=== PATIENT | male | born 1950 | race Caucasian/White ===

== ENCOUNTER 2017-09-06 06:18 | Day surgery (SDC) | payer OTHER ==
[2017-09-01 14:18] LABS: Absolute Lymphocytes (CBC) 1.5 K/uL (0.7-4.9); Absolute Monocytes 0.7 K/uL (0.1-1.3); Absolute Neutrophil 3.8 K/uL (1.8-8.0); Basophils % 1.1 % (0-1.3); Eosinophils % 4.5 % (0-4.4); Hematocrit 39.6 % (39.6-49.0); Lymphocytes % 23.1 % (15.3-44.8); MCH 27.5 pg (27.0-35.0); MCV 83.3 fL (80-100); MPV 9.3 fL (7.6-11.3); RBC Red Blood Cell Count 4.76 M/uL (4.33-5.43)
[2017-09-01 14:24] LABS: Potassium 4.1 mEq/L (3.6-5.0); Protime INR 2.47
--- NOTE | 2017-09-01 14:49 | RAD REPORT ---
EXAM DESCRIPTION: RADOP - Outpt Chest Pa/Lat (2 Views) - 09/01/2017 2:31 pm CLINICAL HISTORY: Preop chest, pending cardiac catheterization procedure, history of asbestosis COMPARISON: June [address] chest TECHNIQUE: PA and lateral views of the chest were obtained. FINDINGS: The lungs are clear of an acute infiltrate or mass. Interstitial markings are prominent bu t not clearly different. Patient has numerous punctate calcifications localized on the CT study to th e left ventricular myocardium. No acute failure finding. Sternotomy wires are in place. Heart size is normal and central vasculature is within normal limits. No pleural effusion or pneumothorax seen. No acute bony finding noted. No acute aortic finding. Diaphragmatic eventration is present. IMPRESSION: Chronic interstitial lung disease is present similar to prior imaging. No acute finding.
--- NOTE | 2017-09-01 16:27 | EKG ---
Test Date: 2017-09-01 Test Time: 13:41:13 Trim Die Maker: GLADIS MEASUREMENT RESULTS: Intervals: Rate: 62 TN: 196 QRSD: 168 QT: 490 QTc: 497 Rutledge: P: 34 TN: 196 QRS: -63 T: 60 INTERPRETIVE STATEMENTS: Marked sinus bradycardia with occasional premature ventricular complexes Left axis deviation Left ventricular hypertrophy with QRS widening Inferior infarct, age undetermined Abnormal ECG Compared to ECG 07/03/2017 11:13:57 Ventricular premature complex(es) now present Left ventricular hypertrophy now present Myocardial infarct finding now present Sinus rhythm no longer present Atrial premature complex(es) no longer present Left bundle-branch block no longer present Electronically Signed On 09-01-17 16:27:21 CDT by Geovanny Garrett
--- OUTSIDE RECORDS SUMMARY | 2017-09-06 06:21 | XMS REPORT ---
:1950 [facility] Address [facility] Piña [address] [place] [id number] Care Team Providers Name Role Phone VIVEK MCCOYDAMASOKIRK DWIGHT Unavailable Unavailable Problems This patient has no known problems. Allergies, Adverse Reactions, Alerts This patient has no known allergies or adverse reactions. Medications This patient has no known medications. Results Test Description Test Time Test Comments Text Results Atomic Results Result Comments PROTHROMBIN TIME/INR 2017-08-17 10:29:00 Test Item Value Reference Range Comments PROTIME (BEAKER) (test rimx=269) 15.7 seconds 11.7-14.7 INR (BEAKER) (test dsnw=233) 1.3 <=5.9 RECOMMENDED COUMADIN/WARFARIN INR THERAPY RANGESSTANDARD DOSE: 2.0 - 3.0 Includes: PROPHYLAXIS forvenous thrombosis, systemic embolization; TREATMENT for venous thrombosis and/or pulmonary embolus.HIGH RISK: Target INR is 2.5-3.5 for patients with mechanical heart valves.
--- OUTSIDE RECORDS SUMMARY | 2017-09-06 06:21 | XMS REPORT | Clinical Summary ---
:1950 Author Organization [facility] Address [address] [place] [phone] Phone Care Team Providers Name Role Phone Unavailable Primary Care Provider Unavailable Allergies No Known Allergies Current Medications Not on file Active Problems Not on file Encounters Date Type Specialty Care Team Description 08/17/2017 Hospital Encounter Cardiology Geovanny Garrett 08/17/2017 Outside Orders Central Scheduling Geovanny Garrett Aortic valve disease Carlos (Primary Dx) after 09/05/2016 Social History Tobacco Use Types Packs/Day Years Used Date Never Assessed Sex Assigned at Date Recorded Not on file Last Filed Vital Signs Vital Sign Reading Time Taken Blood Pressure 103/51 08/17/2017 11:40 AM CDT Pulse 58 08/17/2017 11:40 AM CDT Temperature - - Respiratory Rate 14 08/17/2017 11:40 AM CDT Oxygen Saturation 96% 08/17/2017 11:40 AM CDT Inhaled Oxygen Concentration - - Weight - - Height - - Body Mass Index - - Plan of Treatment Not on file Results Transesophageal echo (08/17/2017 11:55 AM) Component Value Ref Range Ejection Fraction Specimen Performing Laboratory [facility] Narrative Transesophageal Echocardiography Report (GERRI) Demographics Patient NameFUARIELLA BUCIO Date of Study WILLIS Male Visit [id number] Room NumberOP Number Date of 1Referring Gerry Gonzalez Physician Age 67 year(s)Keyla Light [facility] Interpreting Magdalene Boone Procedure Type of Study GERRI procedure:TRANSESOPHAGEAL ECHO (Routine) Indications:Suspected infective endocarditis with positive cultures or new murmur and Initial evaluation of valvular or structural heart disease. Clinical History HTN, HLD, AOV REPLACEMENT (1985- ), BAV, PDA, ENDOCARDITIS, FORMER SMOKER (QUIT 2 YEARS AGO), CVA (01/15/17) Height: 72 inches Weight: 88.45 kg (195 lbs) BSA: 2.11 m^2 BMI: 26.45 kg/m^2 HR: 56 bpm BP: 139/65 mmHg GERRI Performed By: the attending and the integrated program teacher Procedure Informed Consent GERRI procedure notes Moderate sedation by performing MD using 5 mg IV versed and 75 mcg IV fentanyl. . Type of Anesthesia: Moderate sedation Summary 1. AoV dimensionless obstructive index (DOI)) is 0.23 . Peak/mean aortic gradients vary with the irregular HR but mostly approach 64 and 35mmHg with some as high as 85mmHg c/w severe obstruction of the mechanical AVR 2. Mild mitral regurgitation. No vegetations seen. Average mean mitral gradient 5mmHg c/w mild [place] valve mitral stenosis. 3. There is marked and abnormal thickening and calcification of the posterolateral papillary muscle with extension to just below the PML. There are mobile echodensities attached. Signature Findings Technical Quality: Technically good exam. Left Mild concentric LV hypertrophy. VentricleAll of the LV segments contract normally . Global LV systolic function normal . Left AtriumLA size is moderately enlarged . LA appendage thrombus is not present . RightThe right ventricular chamber size and systolic function are Ventriclewithin normal limits. Right Atrium RA size is probably normal based on available views. Atrial IV saline contrast injection was negative for a PFO (patent Septum foramen ovale) at rest . Aortic Valve AoV dimensionless obstructive index (DOI)) is 0.23 . Peak/mean aortic gradients vary with the irregular HR but mostly approach 64 and 35mmHg with some as high as 85mmHg c/w severe obstruction of the mechanical AVR Prosthetic AoV regurgitaton is trivial and physiologic . Mechanical aortic replacement is well seated. by 3d imaging the hemidiscs have good mobility. There are small mobile echodensities attached to the LV surface of the prosthesis which could represent thromi and/or vegetation. There may be panus/thrombus underneath the prosthesis. There is no evidence of aortic root abscess. Mitral Valve Oppo-ns-hqdrowkv MV leaflet thickening. Moderate mitral annular calcification. Mild mitral regurgitation. Average mean mitral gradient 5mmHg. There are no vegetations attached to the mitral leaflets. There is marked and abnormal thickening and calcification of the posterolateral papillary muscle with extension to just below the PML. There are mobile echodensities attached. Posterior leaflet with reduced mobility secondary to calcification TricuspidNormal TV structure and function. ValveUnable to estimate peak systolic PA pressure; inadequate TR velocity signal. Pulmonic Normal PV structure and function. ValveNo residual PDA flow could be visualized. AortaAortic root size (SInus of Valsalva diameter) is normal . Proximal ascending aorta size is normal . PericardiumNo pericardial effusion is visualized. Procedure Note Interface, External Ris In - 08/18/2017 8:32 AM CDT Transesophageal Echocardiography Report (GERRI) Demographics Patient Name ARIELLA WYLIE Date of Study WILLIS Gender Male Visit Number [id number] Race Room Number OP Number Date of 1950 Referring Gerry Gonzalez Physician Age 67 year(s) Supervisor Tan [address] Interpreting Physician KIP Boone Procedure Type of Study GERRI procedure:TRANSESOPHAGEAL ECHO (Routine) Indications:Suspected infective endocarditis with positive cultures or new murmur and Initial evaluation of valvular or structural heart disease. Clinical History HTN, HLD, AOV REPLACEMENT (1985- ), BAV, PDA, ENDOCARDITIS, FORMER SMOKER (QUIT 2 YEARS AGO), CVA (01/15/17) Height: 72 inches Weight: 88.45 kg (195 lbs) BSA: 2.11 m^2 BMI: 26.45 kg/m^2 HR: 56 bpm BP: 139/65 mmHg GERRI Performed By: the attending and the integrated program teacher Procedure Informed Consent GERRI procedure notes Moderate sedation by performing MD using 5 mg IV versed and 75 mcg IV fentanyl. . Type of Anesthesia: Moderate sedation Summary 1. AoV dimensionless obstructive index (DOI)) is 0.23 . Peak/mean aortic gradients vary with the irregular HR but mostly approach 64 and 35mmHg with some as high as 85mmHg c/w severe obstruction of the mechanical AVR 2. Mild mitral regurgitation. No vegetations seen. Average mean mitral gradient 5mmHg c/w mild [place] valve mitral stenosis. 3. There is marked and abnormal thickening and calcification of the posterolateral papillary muscle with extension to just below the PML. There are mobile echodensities attached. Signature Findings Technical Quality: Technically good exam. Left Mild concentric LV hypertrophy. Ventricle All of the LV segments contract normally . Global LV systolic function normal . Left Atrium LA size is moderately enlarged . LA appendage thrombus is not present . Right The right ventricular chamber size and systolic function are Ventricle within normal limits. Right Atrium RA size is probably normal based on available views. Atrial IV saline contrast injection was negative for a PFO (patent Septum foramen ovale) at rest . Aortic Valve AoV dimensionless obstructive index (DOI)) is 0.23 . Peak/mean aortic gradients vary with the irregular HR but mostly approach 64 and 35mmHg with some as high as 85mmHg c/w severe obstruction of the mechanical AVR Prosthetic AoV regurgitaton is trivial and physiologic . Mechanical aortic replacement is well seated. by 3d imaging the hemidiscs have good mobility. There are small mobile echodensities attached to the LV surface of the prosthesis which could represent thromi and/or vegetation. There may be panus/thrombus underneath the prosthesis. There is no evidence of aortic root abscess. Mitral Valve Gjxg-kt-gbnquohp MV leaflet thickening. Moderate mitral annular calcification. Mild mitral regurgitation. Average mean mitral gradient 5mmHg. There are no vegetations attached to the mitral leaflets. There is marked and abnormal thickening and calcification of the posterolateral papillary muscle with extension to just below the PML. There are mobile echodensities attached. Posterior leaflet with reduced mobility secondary to calcification Tricuspid Normal TV structure and function. Valve Unable to estimate peak systolic PA pressure; inadequate TR velocity signal. Pulmonic Normal PV structure and function. Valve No residual PDA flow could be visualized. Aorta Aortic root size (SInus of Valsalva diameter) is normal . Proximal ascending aorta size is normal . Pericardium No pericardial effusion is visualized. Prothrombin time/INR (08/17/2017 10:00 AM) Component Value Ref Range Protime 15.7 (H) 11.7 - 14.7 seconds INR 1.3 <=5.9 Specimen Performing Laboratory Blood [facility] [address] [address] Narrative RECOMMENDED COUMADIN/WARFARIN INR THERAPY RANGES STANDARD DOSE: 2.0 - 3.0 Includes: PROPHYLAXIS for venous thrombosis, systemic embolization; TREATMENT for venous thrombosis and/or pulmonary embolus. HIGH RISK: Target INR is 2.5-3.5 for patients with mechanical heart valves. after 09/05/2016
[2017-09-06] MEDS ORDERED: NA CHLORIDE 0.9% 500 ML ONE (06:50)
[2017-09-06] MEDS ORDERED: HEPA 1000U/500MLS 0 UNIT/0 ML BAG IV ONE (07:26)
[2017-09-06] MEDS ORDERED: LIDOCAINE 1% 20 ML MDV ONE (07:26)
[2017-09-06] MEDS ORDERED: MIDAZOLAM HCL 2 MG/2 ML INJ ONE ×4 (07:40→09:14)
[2017-09-06] MEDS ORDERED: NA CHLORIDE 0.9% 0 ML ONE ×2 (07:41→09:06)
[2017-09-06] MEDS ORDERED: FENTANYL CITR 100 MCG/2 ML ONE ×2 (07:41→09:05)
[2017-09-06] MEDS ORDERED: ATROPINE SULF 1 MG/10 ML SYR IV ONE ×2 (07:41→09:05)
[2017-09-06 08:42] VITALS: TEMP 97
[2017-09-06] MEDS ORDERED: ONDANSETRON 4 MG/2 ML VIAL ONE (09:49)
[2017-09-06 09:50] VITALS: BP 131/59; O2SAT 96
--- NOTE | 2017-09-07 03:58 | OP ---
Surgeon: Geovanny Garrett MD Bobbin Sorter: Stefany Mckeon. Indications: Mr. Wylie is a 67-year-old white male. He is known to have severe aortic stenosis of a mechanical prosthesis that has been there for approximately 30 years ago. This was done by Dr. Rocha. In the last few months, he had endocarditis. Transesophageal echocardiography done at [facility] confirmed severe aortic stenosis of his mechanical valve. There is a plan for hussain m to have an aortic valve replacement by Dr. Corbin Sevilla. The heart catheterization was scheduled to r ule out coronary artery disease prior to surgery. Procedure In Detail: The patient was admitted as an outpatient, brought to the label rewinder. He was pre pped and draped in the routine sterile fashion, was given 2 mg of Versed for IV sedation. Right comm on femoral artery access was obtained with a 6-Guine[place] sheath. The 6-[place] catheters were used to do the diagnostic catheterization. He had minimal plaquing in the LAD, circumflex, and the RCA. There were no complications of the procedure. There were no focal stenosis. He was right dominant. Complications: None. Blood Loss: 5 cc. Final Diagnoses: Minimal coronary artery disease, aortic stenosis, and atrial fibrillation, which wa s noted on his rhythm strips. Total Conscious Sedation: 30 minutes. Postoperative Plan: Plan is to continue Lovenox as a bridge until he has his aortic valve surgery. No change in therapy, otherwise. He will go home today after his bedrest is over. Angio-Seal was us ed to close the case. I will arrange followup with Dr. Sevilla. The case was discussed with the family. TEOFILO/KEM Voice ID: [id number] Report ID: [id number]
== END 2017-09-06 10:14 | disposition home or self-care (01) ==
LOC: CCL 06:18
DX: T82.857A Stenosis of other cardiac prosthetic devices, implants and grafts, initial encounter (principal); I25.10 Atherosclerotic heart disease of native coronary artery without angina pectoris; I48.91 Unspecified atrial fibrillation; I10 Essential (primary) hypertension; E78.5 Hyperlipidemia, unspecified; F17.210 Nicotine dependence, cigarettes, uncomplicated; Z86.73 Personal history of transient ischemic attack (TIA), and cerebral infarction without residual deficits; Z88.3 Allergy status to other anti-infective agents
CPT/HCPCS: 36415; 71046; 80048; 85025; 85610; 85730; 93005; 93454; C1893; J2250 ×2; J3010; J0583; J2405

== ENCOUNTER 2020-07-17 19:20 | Observation (INO) | payer OTHER ==
[2020-07-17] MEDS ORDERED: NA CHLORIDE 0.9% 1,000 ML ONE (20:17)
[2020-07-17 20:25] LABS: Absolute Lymphocytes (CBC) 1.5 K/uL (0.7-4.9); Basophils % 1.2 % (0-1.3); Hematocrit 39.1 % (39.6-49.0); Lymphocytes % 22.3 % (15.3-44.8); MPV 9.3 fL (7.6-11.3); RBC Red Blood Cell Count 4.68 M/uL (4.33-5.43)
[2020-07-17 20:31] LABS: Protime INR 1.55
[2020-07-17 20:53] LABS: ALT/SGPT 25 U/L (12-78); AST/SGOT 24 U/L (15-37); Albumin 3.9 g/dL (3.4-5.0); Alkaline Phosphatase 99 U/L (45-117); BUN Blood Urea Nitrogen 34 mg/dL (7-18); Bicarbonate 33 mmol/L (21-32); Bilirubin Direct 0.2 mg/dL (0-0.2); Bilirubin Total 0.9 mg/dL (0.2-1.0); Glucose Level 190 mg/dL (74-106); Magnesium 2.1 mg/dL (1.8-2.4); NT PRO-BNP 354 pg/mL (<125); Protein, Total 7.5 g/dL (6.4-8.2); Sodium Level 141 mmol/L (136-145); Troponin (Emerg Dept Use Only) < 0.02 ng/mL (0.0-0.045)
[2020-07-17 20:55] LABS: Potassium 2.7 mmol/L (3.5-5.1)
[2020-07-17] MEDS ORDERED: KCL 20 MEQ/100 mL IVPB 40 MEQ/200 ML BAG IV ONE (21:33)
[2020-07-17] MEDS ORDERED: POTASSIUM 25 MEQ EFFERV TAB ONE (21:33)
[2020-07-17] MEDS ORDERED: NS KCL 20MEQ 1,000 ML IV ONE (21:34)
--- NOTE | 2020-07-17 21:51 | EDPHYS ---
Physician Documentation [facility] Name: Alexsander Wylie Age: 70 yrs Sex: Male : 1950 Arrival Date: 07/17/2020 Time: 19:21 Bed 19 Private MD: ED Physician Yasmany Kirkpatrick HPI: 07/17 19:55 This 70 yrs old Male presents to ER via Ambulatory with complaints of LOW vidhi POTASSIUM. 19:55 lab said hypokalemia. Onset: The symptoms/episode began/occurred 1 day(s) ago. Severity vidhi of symptoms: At their worst the symptoms were mild in the emergency department the symptoms are unchanged. The patient has not experienced similar symptoms in the past. Historical: - Allergies: 19:51 No Known Allergies; mg2 - PMHx: 19:51 Hyperlipidemia; Hypertension; stroke; mg2 - PSHx: 19:51 mitral valve replacement; Appendectomy; mg2 - Immunization history:: Flu vaccine status is unknown. - Social history:: Smoking status: Patient denies any tobacco usage or history of. ROS: 19:57 Constitutional: Negative for fever, chills, and weight loss, Eyes: Negative for injury, vidhi pain, redness, and discharge, ENT: Negative for injury, pain, and discharge, Neck: Negative for injury, pain, and swelling, Cardiovascular: Negative for chest pain, palpitations, and edema, Abdomen/GI: Negative for abdominal pain, nausea, vomiting, diarrhea, and constipation, Back: Negative for injury and pain, : Negative for injury, bleeding, discharge, and swelling, MS/Extremity: Negative for injury and deformity, Skin: Negative for injury, rash, and discoloration, Neuro: Negative for headache, weakness, numbness, tingling, and seizure, Psych: Negative for depression, anxiety, suicide ideation, homicidal ideation, and hallucinations, Allergy/Immunology: Negative for hives, rash, and allergies, Endocrine: Negative for neck swelling, polydipsia, polyuria, polyphagia, and marked weight changes, Hematologic/Lymphatic: Negative for swollen nodes, abnormal bleeding, and unusual bruising. 19:57 Respiratory: Positive for cough, shortness of breath. Exam: 19:57 Constitutional: This is a well developed, well nourished patient who is awake, alert, vidhi and in no acute distress. Head/Face: Normocephalic, atraumatic. Eyes: Pupils equal round and reactive to light, extra-ocular motions intact. Lids and lashes normal. Conjunctiva and sclera are non-icteric and not injected. Cornea within normal limits. Periorbital areas with no swelling, redness, or edema. ENT: Nares patent. No nasal discharge, no septal abnormalities noted. Tympanic membranes are normal and external auditory canals are clear. Oropharynx with no redness, swelling, or masses, exudates, or evidence of obstruction, uvula midline. Mucous membranes moist. Neck: Trachea midline, no thyromegaly or masses palpated, and no cervical lymphadenopathy. Supple, full range of motion without nuchal rigidity, or vertebral point tenderness. No Meningismus. Chest/axilla: Normal chest wall appearance and motion. Nontender with no deformity. No lesions are appreciated. Cardiovascular: Regular rate and rhythm with a normal S1 and S2. No gallops, murmurs, or rubs. Normal PMI, no JVD. No pulse deficits. Respiratory: Lungs have equal breath sounds bilaterally, clear to auscultation and percussion. No rales, rhonchi or wheezes noted. No increased work of breathing, no retractions or nasal flaring. Abdomen/GI: Soft, non-tender, with normal bowel sounds. No distension or tympany. No guarding or rebound. No evidence of tenderness throughout. Back: No spinal tenderness. No costovertebral tenderness. Full range of motion. Male : Normal genitalia with no discharge or lesions. Skin: Warm, dry with normal turgor. Normal color with no rashes, no lesions, and no evidence of cellulitis. Neuro: Awake and alert, GCS 15, oriented to person, place, time, and situation. Cranial nerves II-XII grossly intact. Motor strength 5/5 in all extremities. Sensory grossly intact. Cerebellar exam normal. Normal gait. Psych: Awake, alert, with orientation to person, place and time. Behavior, mood, and affect are within normal limits. 19:57 Musculoskeletal/extremity: Extremities: swelling, ROM: intact in all extremities, full active range of motion, Circulation is intact in all extremities. Sensation intact. 21:35 ECG was reviewed by the Attending Physician. [facility] [place] Vital Signs: 19:43 BP 155 / 71; Pulse 75; Resp 18; Temp 98(O); Pulse Ox 98% on R/A; Weight 94.35 kg; mg2 Height 6 ft. 0 in. (182.88 cm); Pain 0/10; 20:31 BP 127 / 72; Pulse 60; Resp 18; Pulse Ox 95% on R/A; mg2 23:40 Pulse 63; Resp 18; Pulse Ox 96% on R/A; em 19:43 Body Mass Index 28.21 (94.35 kg, 182.88 cm) mg2 MDM: 19:37 Patient medically screened. [facility] [place] 19:58 Data reviewed: vital signs, nurses notes, lab test result(s), EKG, radiologic studies, vidhi plain films. Data interpreted: monitor and storage bin tender: rate is 75 beats/min, Pulse oximetry: on room air. Test interpretation: by ED physician or midlevel provider: ECG, plain radiologic studies. Counseling: I had a detailed discussion with the patient and/or guardian regarding: the historical points, exam findings, and any diagnostic results supporting the discharge/admit diagnosis, the presence of at least one elevated blood pressure reading (>120/80) during this emergency department visit, lab results, radiology results, the need for outpatient follow up. 07/17 19:54 Order name: Basic Metabolic Panel; Complete Time: 21:07 [facility] [place] 07/17 19:54 Order name: CBC with Diff; Complete Time: 20:41 [facility] [place] 07/17 19:54 Order name: LFT's; Complete Time: 21:07 [facility] [place] 07/17 19:54 Order name: Magnesium; Complete Time: 21:07 [facility] [place] 07/17 19:54 Order name: NT PRO-BNP; Complete Time: 21:07 [facility] [place] 07/17 19:54 Order name: PT-INR; Complete Time: 20:41 [facility] [place] 07/17 19:54 Order name: Troponin (emerg Dept Use Only); Complete Time: 21:07 [facility] [place] 07/17 20:48 Order name: COVID-19 : Document "Date of Symptom Onset" if Symptomatic. [facility] [place] 07/17 20:49 Order name: CORONAVIRUS [facility] 07/17 21:09 Order name: Phosphorus; Complete Time: 21:51 [facility] [place] 07/17 22:33 Order name: SARS-COV-2 RT PCR [facility] 07/17 23:34 Order name: CBC with Automated Diff [facility] 07/17 23:34 Order name: CBC with Automated Diff [facility] 07/17 23:34 Order name: Comprehensive Metabolic Panel [facility] 07/17 19:54 Order name: XRAY Chest (1 view) [facility] [place] 07/17 19:54 Order name: EKG; Complete Time: 19:55 [facility] [place] 07/17 21:11 Order name: CT Chest Wo Con [facility] 07/17 23:34 Order name: CONS Pharmacy Consult [facility] 07/17 23:34 Order name: Comprehensive Metabolic Panel [facility] 07/17 23:35 Order name: Extrem Venous W Compress Aldo [facility] 07/17 19:54 Order name: Cardiac monitoring; Complete Time: 20:11 [facility] [place] 07/17 19:54 Order name: EKG - Nurse/Tech; Complete Time: 20:11 [facility] [place] 07/17 19:54 Order name: IV Saline Lock; Complete Time: 20: [facility] [place] 07/17 19:54 Order name: Labs collected and sent; Complete Time: 20:11 [facility] [place] 07/17 19:54 Order name: O2 Per Protocol; Complete Time: 20:11 [facility] [place] 07/17 19:54 Order name: O2 Sat Monitoring; Complete Time: 20:11 [facility] [place] 07/17 19:54 Order name: Urine Dipstick-Ancillary (obtain specimen); Complete Time: 22:13 [facility] [place] 07/17 23:34 Order name: CONS Physician Consult [facility] 07/17 23:34 Order name: Heart Healthy EDND EC:35 Rate is 62 beats/min. Rhythm is regular. QRS [place] is Normal. [place] interval is normal. QRS vidhi interval is normal. QT interval is normal. No Q waves. T waves are Normal. No ST changes noted. Clinical impression: NSR w/ Non-specific ST/T Changes, LVH, and No evidence of ischemia. Interpreted by me. Reviewed by me. Administered Medications: Discontinued: NS 0.9% 1000 ml IV at 75 ml/hr continuous 20:11 Drug: NS 0.9% 1000 ml Route: IV; Rate: 75 ml/hr; Site: right antecubital; mg2 21:40 Drug: Potassium Effervescent Tablet 50 mEq Route: PO; mg2 23:40 Follow up: Response: No adverse reaction em 21:40 Drug: Potassium Chloride 20 mEq Route: IV; Rate: per protocol; Site: right antecubital; mg2 07/18 07:09 Follow up: Response: No adverse reaction; IV Status: Completed infusion; IV Intake: mg2 100ml 07/17 21:40 Drug: NS 0.9% with KCl 20 mEq/L 1000 ml Route: IV; Rate: 75 ml/hr; Site: right mg2 antecubital; 07/18 07:09 Follow up: IV Status: Order to discontinue infusion mg2 07/17 22:27 Drug: Xopenex 1.25 mg Route: Inhalation; mg2 23:39 Follow up: Response: No adverse reaction em 22:27 Drug: AtroVENT Aerosol 0.5 mg Route: Inhalation; mg2 23:39 Follow up: Response: No adverse reaction em 22:27 Drug: Lasix 20 mg Route: IVP; Site: right antecubital; mg2 23:39 Follow up: Response: No adverse reaction em 22:27 Drug: Pepcid 20 mg Route: IVP; Site: right antecubital; mg2 23:39 Follow up: Response: No adverse reaction em 22:28 Drug: SOLU-Medrol 125 mg Route: IVP; Site: right antecubital; mg2 23:39 Follow up: Response: No adverse reaction em 23:48 Drug: Potassium Chloride 20 mEq Route: IV; Rate: per protocol; Site: right antecubital; mg2 07/18 07:10 Follow up: Response: No adverse reaction; IV Intake: 100ml mg2 07:10 Follow up: IV Status: Completed infusion mg2 Disposition: 07/17/20 21:51 Hospitalization ordered by Kelley Noriega for Inpatient Admission. Preliminary diagnosis are Hypokalemia, Dyspnea, Acute kidney failure, Cardiomegaly, Systolic (congestive) heart failure, Idiopathic pulmonary fibrosis. - Bed requested for Telemetry/MedSurg (Inpatient). - Status is Inpatient Admission. aa5 - Condition is Fair. - Problem is new. - Symptoms have improved. Signatures: Dispatcher [employer] Anat Cartagena RN RN dw Anderson, Corey, MD MD cha Calderon, Audri, RN RN aa5 Zackery Jiang RN RN mg2 Munoz, Edgar RN em Corrections: (The following items were deleted from the chart) 07/17 22:03 21:51 Hospitalization Ordered by Kelley Noriega MD for Inpatient Admission. Preliminary vidhi diagnosis is Hypokalemia; Dyspnea; Acute kidney failure; Cardiomegaly; Systolic (congestive) heart failure. Bed requested for Telemetry/MedSurg (Inpatient). Status is Inpatient Admission. Condition is Fair. Problem is new. Symptoms have improved. vidhi 23:41 22:03 07/17/2020 21:51 Hospitalization Ordered by Kelley Noriega MD for Inpatient dw Admission. Preliminary diagnosis is Hypokalemia; Dyspnea; Acute kidney failure; Cardiomegaly; Systolic (congestive) heart failure; Idiopathic pulmonary fibrosis. Bed requested for Telemetry/MedSurg (Inpatient). Status is Inpatient Admission. Condition is Fair. Problem is new. Symptoms have improved. vidhi 07/18 09:18 07/17 23:41 07/17/2020 21:51 Hospitalization Ordered by Kelley Noriega MD for Inpatient dw Admission. Preliminary diagnosis is Hypokalemia; Dyspnea; Acute kidney failure; Cardiomegaly; Systolic (congestive) heart failure; Idiopathic pulmonary fibrosis. Bed requested for [facility] ER HOLD. Status is Inpatient Admission. Condition is Fair. Problem is new. Symptoms have improved. 07/18 11:42 09:18 07/17/2020 21:51 Hospitalization Ordered by Kelley Noriega MD for Inpatient aa5 Admission. Preliminary diagnosis is Hypokalemia; Dyspnea; Acute kidney failure; Cardiomegaly; Systolic (congestive) heart failure; Idiopathic pulmonary fibrosis. Bed requested for Telemetry/MedSurg (Inpatient). Status is Inpatient Admission. Condition is Fair. Problem is new. Symptoms have improved. dw
--- NOTE | 2020-07-17 21:51 | ER ---
Nurse's Notes [facility] Name: Alexsander Wylie Age: 70 yrs Sex: Male : 1950 Arrival Date: 07/17/2020 Time: 19:21 Bed 19 Private MD: Diagnosis: Hypokalemia;Dyspnea;Acute kidney failure;Cardiomegaly;Systolic (congestive) heart failure;Idiopathic pulmonary fibrosis Presentation: 07/17 19:43 Chief complaint: Patient states: i had a blood test here 2 days ago and I was told by mg2 the PA there that my potassium is low. i have shortness of breath, denies Chest pain. Coronavirus screen: Client denies travel out of the [place] in the last 14 days. Ebola Screen: No symptoms or risks identified at this time. Initial Sepsis Screen: Does the patient meet any 2 criteria? No. Patient's initial sepsis screen is negative. Does the patient have a suspected source of infection? No. Patient's initial sepsis screen is negative. Risk Assessment: Do you want to hurt yourself or someone else? Patient reports no desire to harm self or others. Onset of symptoms was July 17, 2020. 19:43 Method Of Arrival: Ambulatory mg2 19:43 Acuity: [place] 3 mg2 Historical: - Allergies: 19:51 No Known Allergies; mg2 - PMHx: 19:51 Hyperlipidemia; Hypertension; stroke; mg2 - PSHx: 19:51 mitral valve replacement; Appendectomy; mg2 - Immunization history:: Flu vaccine status is unknown. - Social history:: Smoking status: Patient denies any tobacco usage or history of. Screenin:12 Abuse screen: Denies threats or abuse. Denies injuries from another. Nutritional mg2 screening: No deficits noted. Tuberculosis screening: No symptoms or risk factors identified. Fall Risk IV access (20 points). Assessment: 20:12 General: Appears in no apparent distress. comfortable, Behavior is calm, cooperative. mg2 Pain: Denies pain. Neuro: Level of Consciousness is awake, alert, obeys commands, Oriented to person, place, time, situation. Cardiovascular: Capillary refill < 3 seconds Patient's skin is warm and dry. Respiratory: Airway is patent Respiratory effort is even, unlabored, Respiratory pattern is regular, symmetrical. Respiratory: Reports shortness of breath. GI: No signs and/or symptoms were reported involving the gastrointestinal system. : No signs and/or symptoms were reported regarding the genitourinary system. EENT: No signs and/or symptoms were reported regarding the EENT system. Derm: Skin is intact, is healthy with good turgor, Skin is pink, warm \T\ dry. normal. Musculoskeletal: Circulation, motion, and sensation intact. Capillary refill < 3 seconds. 23:40 Reassessment: Patient appears in no apparent distress at this time. Patient and/or em family updated on plan of care and expected duration. Pain level reassessed. Patient is alert, oriented x 3, equal unlabored respirations, skin warm/dry/pink. dr Noriega-hospitalist came and examined the patient. Vital Signs: 19:43 BP 155 / 71; Pulse 75; Resp 18; Temp 98(O); Pulse Ox 98% on R/A; Weight 94.35 kg; mg2 Height 6 ft. 0 in. (182.88 cm); Pain 0/10; 20:31 BP 127 / 72; Pulse 60; Resp 18; Pulse Ox 95% on R/A; mg2 23:40 Pulse 63; Resp 18; Pulse Ox 96% on R/A; em 19:43 Body Mass Index 28.21 (94.35 kg, 182.88 cm) mg2 ED Course: 19:21 Patient arrived in ED. ag3 19:35 Zackery Jiang, RN is Primary Nurse. mg2 19:37 Yasmany Kirkpatrick MD is Attending Physician. vidhi 19:47 Triage completed. mg2 19:51 Arm band placed on. mg2 20:12 Patient has correct armband on for positive identification. mg2 20:12 No provider procedures requiring assistance completed. Inserted saline lock: 20 gauge mg2 in left antecubital area, using aseptic technique. Blood collected. 20:22 XRAY Chest (1 view) In Process Unspecified. EDMS 21:33 CT Chest Wo Con In Process Unspecified. EDMS 21:48 Kelley Noriega MD is Hospitalizing Provider. [facility] 07/18 01:13 Patient admitted, IV remains in place. mg2 11:10 Primary Nurse role handed off by Zackery Jiang, RN eb Administered Medications: Discontinued: NS 0.9% 1000 ml IV at 75 ml/hr continuous 07/17 20:11 Drug: NS 0.9% 1000 ml Route: IV; Rate: 75 ml/hr; Site: right antecubital; mg2 21:40 Drug: Potassium Effervescent Tablet 50 mEq Route: PO; mg2 23:40 Follow up: Response: No adverse reaction em 21:40 Drug: Potassium Chloride 20 mEq Route: IV; Rate: per protocol; Site: right antecubital; mg2 07/18 07:09 Follow up: Response: No adverse reaction; IV Status: Completed infusion; IV Intake: mg2 100ml 07/17 21:40 Drug: NS 0.9% with KCl 20 mEq/L 1000 ml Route: IV; Rate: 75 ml/hr; Site: right mg2 antecubital; 07/18 07:09 Follow up: IV Status: Order to discontinue infusion mg2 07/17 22:27 Drug: Xopenex 1.25 mg Route: Inhalation; mg2 23:39 Follow up: Response: No adverse reaction em 22:27 Drug: AtroVENT Aerosol 0.5 mg Route: Inhalation; mg2 23:39 Follow up: Response: No adverse reaction em 22:27 Drug: Lasix 20 mg Route: IVP; Site: right antecubital; mg2 23:39 Follow up: Response: No adverse reaction em 22:27 Drug: Pepcid 20 mg Route: IVP; Site: right antecubital; mg2 23:39 Follow up: Response: No adverse reaction em 22:28 Drug: SOLU-Medrol 125 mg Route: IVP; Site: right antecubital; mg2 23:39 Follow up: Response: No adverse reaction em 23:48 Drug: Potassium Chloride 20 mEq Route: IV; Rate: per protocol; Site: right antecubital; mg2 07/18 07:10 Follow up: Response: No adverse reaction; IV Intake: 100ml mg2 07:10 Follow up: IV Status: Completed infusion mg2 Intake: 07:09 IV: 100ml; Total: 100ml. mg2 07:10 IV: 100ml; Total: 200ml. mg2 Outcome: 07/17 21:51 Decision to Hospitalize by Provider. [facility] 07/18 01:10 Admitted to ER Hold. Please see [facility] for further documentation. mg2 Condition: stable Instructed on the need for admit. 11:42 Patient left the ED. aa5 Signatures: Dispatcher [employer] Yasmany Gallegos MD MD cha Munoz, Edgar, RN RN Horacio Abbasiri, RN RN aa5 Teresita Martinez Michele, RN RN mg2 Gerson, Antonieta ag3
[2020-07-17] MEDS ORDERED: FUROSEMIDE 20 MG/ 2ML VIAL ONE (22:34)
[2020-07-17] MEDS ORDERED: IPRATROPIUM BROM 0.5MG/2.5ML ONE (22:34)
[2020-07-17] MEDS ORDERED: METHYLPREDNISOLONE 125 MG INJ ONE (22:34)
[2020-07-17] MEDS ORDERED: LEVALBUTEROL 1.25 MG/3 ML NEB ONE (22:35)
[2020-07-17] MEDS ORDERED: FAMOTIDINE 20 MG/2 ML VIAL IV ONE (22:35)
--- NOTE | 2020-07-17 23:24 | P.HP ---
Certification for Inpatient Patient admitted to: Observation Patient will require the following post-hospital care: None Practitioner: I am a practitioner with admitting privileges, knowledge of patient current condition, hospital course, and medical plan of care. Services: Services provided to patient in accordance with Admission requirements found in Title 42 Section 412.3 of the Code of Federal Regulations Patient History Date of Service: 07/17/20 Reason for admission: abnormal blood work History of Present Illness: 70 yr old male with HTN , DM , Aortic valve replacement, systolic CHF , with recent worsening body swelling and added metolazone to diuretics regime since last month, but still persistent leg swelling , seen by his PCP today and noted with low potassium on labs and sent to ER. on arrival repeat potassium as low at 2.7.CXR shows no acute pul edema . Reported SOB but patient denies any worsening SOB now . He state adherence with his kcl 10 meq bid use . No recent diarrhea or vomiting Allergies sulfamethoxazole [From Bactrim] Allergy (Verified 09/01/17 13:29) Hives trimethoprim [From Bactrim] Allergy (Verified 09/01/17 13:29) Hives Home Medications: Clopidogrel Bisulfate [Clopidogrel] 1 tab PO DAILY 01/06/16 Furosemide 40 mg PO DAILY 01/06/16 Ropinirole HCl 12 mg PO DAILY 01/06/16 Warfarin Sodium 6 mg PO DAILY 01/06/16 Amlodipine [Norvasc*] 5 mg PO DAILY #30 tab 07/06/17 Atorvastatin Calcium [Lipitor*] 20 mg PO BEDTIME #30 tab 07/06/17 Benzonatate [Tessalon Perle*] 100 mg PO TIDP PRN #30 cap 07/06/17 Clopidogrel Bisulfate [Plavix*] 75 mg PO DAILY #30 tablet 07/06/17 Docusate [Colace Cap*] 100 mg PO DAILY #30 cap 07/06/17 Fluticasone [Flonase 50MCG Nasal [place]*] 1 sprays KAYLIN BID #1 btl 07/06/17 Furosemide [Lasix*] 40 mg PO DAILY #30 tab 07/06/17 Metoprolol Tartrate [Lopressor*] 100 mg PO BID #120 tab 07/06/17 Pantoprazole [Protonix Tab*] 40 mg PO DAILYAC #30 tab 07/06/17 Potassium Chloride [K-Tab ER] 10 meq PO DAILY #30 tablet.er 07/06/17 - Past Medical/Surgical History Diabetic: No -: History CVA x4 -: Hyperlipidemia -: Aortic valve replacement -: Chronic anti coagulation-Coumadin -: CHF -: Former tobacco use -: Restless leg syndrome -: BPH -: Appendectomy -: Aortic valve replacement secondary to patent ductus Psychosocial/ Personal History: The patient is 47 years. He has 1 child. He is retired. - Family History Father -: Lung disease Notes: COPD - Social History Alcohol use: No CD- Drugs: No Caffeine use: Yes Review of Systems 10-point ROS is otherwise unremarkable Physical Examination - Physical Exam General: Alert, In no apparent distress, Oriented x3, Obese HEENT: Atraumatic, Normocephalic, PERRLA Neck: 2+ carotid pulse no bruit, JVD not distended, No Thyromegaly Respiratory: Normal air movement, Diminished Cardiovascular: Regular rate/rhythm, Normal S1 S2, Abnormal S3, Edema Gastrointestinal: Normal bowel sounds, Soft and benign, Non-distended, No masses, No rebound Musculoskeletal: No clubbing, Swelling Integumentary: No rashes, No breakdown, No significant lesion Neurological: Normal gait, Normal speech, Normal strength at 5/5 x4 extr - Studies Laboratory Data (last 24 hrs) 07/17/20 20:00: Phosphorus 3.2 07/17/20 20:00: PT 17.9 H, INR 1.55 07/17/20 20:00: WBC 6.50, Hgb 13.6, Hct 39.1 L, Plt Count 142 L 07/17/20 20:00: Sodium 141, Potassium 2.7 L*, BUN 34 H, Creatinine 1.63 H, Glucose 190 H, Magnesium 2.1, Total Bilirubin 0.9, AST 24, ALT 25, Alkaline Phosphatase 99 Assessment and Plan - Problems (Diagnosis) (1) Hypokalemia Current Visit: Yes Status: Acute (2) CHF (congestive heart failure), NYHA class II Current Visit: Yes Status: Acute (3) Leg edema Current Visit: Yes Status: Acute - Plan # CHF - no acute exacerbation -continue room air - monitor and restrict fluid intake -c/w diuretics -Add Aldactoen to regime # LE edema - unclear etiology , US LE to r/o DVT -c/w diuretics # Hypokalemia - will replete - due to diuretics - follow magnesium level - start kcl 30 meq tid for now - dc IVF use since mild fluid overload clincially # DVT prop - c/w xarelto # Full code - Advance Directives Does patient have a Living Will: No Does patient have a Durable POA for Healthcare: No Time Spent Managing Pts Care (In Minutes): 65
[2020-07-17] MEDS ORDERED: MORPHINE 2 MG/ML SYR IV PRN (23:29)
[2020-07-17] MEDS ORDERED: ALBUTEROL 2.5 MG/3 ML NEB SOL NEB PRN (23:29)
[2020-07-17] MEDS ORDERED: ACETAMINOPHEN 500 MG TAB PO PRN (23:29)
[2020-07-18] MEDS: POTASSIUM CL SA 10 MEQ TAB PO SCH ×3 (02:23→21:45)
[2020-07-18] MEDS ORDERED: POTASSIUM CL SA 10 MEQ TAB PO ONE ×2 (02:33→06:18)
[2020-07-18 02:56] VITALS: BMI 28.2
[2020-07-18 05:11] LABS: Absolute Lymphocytes (CBC) 0.4 K/uL (0.7-4.9); Basophils % 0.6 % (0-1.3); Hematocrit 39.3 % (39.6-49.0); Lymphocytes % 7.4 % (15.3-44.8); MPV 9.4 fL (7.6-11.3); RBC Red Blood Cell Count 4.64 M/uL (4.33-5.43)
[2020-07-18 05:26] LABS: Albumin 3.8 g/dL (3.4-5.0); Bilirubin Total 0.7 mg/dL (0.2-1.0); Potassium 3.3 mmol/L (3.5-5.1); Protein, Total 7.4 g/dL (6.4-8.2)
--- NOTE | 2020-07-18 07:57 | RAD REPORT ---
EXAM DESCRIPTION: Liz Single View07/17/2020 8:22 pm CLINICAL HISTORY: Cough COMPARISON: July 14, 2020 FINDINGS: Mild bilateral chronic appearing lung opacities Right pleural thickening. The lungs appear clear of acute infiltrate. The heart is mildly to moderately enlarged. Postsurgical changes involve the chest. Pacemaker leads in place. IMPRESSION: No acute abnormalities displayed
--- NOTE | 2020-07-18 08:13 | RAD REPORT ---
EXAM DESCRIPTION: CT - Thorax Wo Gab - 07/18/2020 7:04 am CLINICAL HISTORY: PAIN. COMPARISON: CTA of the chest from July 02, 2017. TECHNIQUE: CT of the chest was performed without contrast. Axial, coronal, and sagittal reconstructi ons were created and sent to PACS. This exam was performed according to our departmental dose-optimization program, which includes autom ated exposure control, adjustment of the mA and/or kV according to patient size and/or use of iterati ve reconstruction technique. FINDINGS: Lungs and pleura: Posterior pleural thickening on the right, with a few tiny calcification s, likely unchanged from prior, difficult to be certain due to the associated pleural fluid on the pr ior exam. Small region of suspected rounded atelectasis in the posterior basilar right lower lobe. It is difficult to determine whether this was present previously due to the pleural fluid on the prior exam. Mild mosaic attenuation, decreased in prominence from prior, most prominent in the lower lobes bilaterally. Mild diffuse intralobular septal thickening. No pulmonary consolidation. No pleural effu [place]. No pneumothorax. Mediastinum and neck: No mediastinal lymphadenopathy by CT size criteria. Unremarkable appearance of the thyroid gland. Cardiovascular: No cardiomegaly or pericardial effusion. Pacemaker leads. Mild left atrial enlargemen t. No thoracic aortic aneurysm or dissection. Prominent main pulmonary trunk, measuring up to 3.6 cm in diameter. Moderate calcific atherosclerosis. Abdomen: No significant upper abdominal abnormality identified. Musculoskeletal: No concerning osseous abnormality. No evidence of rib fracture. Median sternotomy wi res. Osteopenia. IMPRESSION: 1. Mild partially calcified pleural thickening in the right lower lobe with an adjacen t small region of suspected rounded atelectasis. Correlate for asbestos exposure. 2. Mosaic attenuation, decreased in prominence from prior, possibly sequela of chronic small vessel or small airways disease. 3. Mild diffuse interstitial thickening, possibly sequela of mild pulmonary fibrosis. 4. Prominent main pulmonary trunk. Correlate for pulmonary arterial hypertension. 5. Moderate calcific atherosclerosis. Mild left atrial enlargement. Pacemaker leads. Electronically signed by: Gaby Devine MD 07/17/2020 9:50 PM SALES PRODUCER Due to temporary technical issues with the PACS/Fluency reporting system, reports are being signed by the in house radiologist without review as a courtesy to ensure prompt reporting. The interpreting r adiologist is fully responsible for the content of the report.
[2020-07-18] MEDS ORDERED: ACETAMINOPHEN 500 MG TAB ONE (08:33)
[2020-07-18] MEDS ORDERED: METOLAZONE 5 MG TABLET PO SCH (09:00)
[2020-07-18] MEDS: SPIRONOLACTONE 25 MG TABLET PO SCH (09:00)
[2020-07-18] MEDS ORDERED: CLOPIDOGREL 75 MG TABLET PO SCH (09:00)
[2020-07-18] MEDS ORDERED: INFLUENZA VACCINE (for 3y+) 0.5 ML DOSE IMVAC ONE (09:00)
[2020-07-18] MEDS ORDERED: FUROSEMIDE 40 MG TABLET PO SCH ×2 (09:00→21:00)
[2020-07-18] MEDS ORDERED: FUROSEMIDE 40 MG TABLET ONE (09:41)
--- NOTE | 2020-07-18 10:14 | RAD REPORT ---
EXAM DESCRIPTION: USExtrem Venous W Compress Bil07/18/2020 9:40 am CLINICAL HISTORY: Leg pain COMPARISON: none FINDINGS: The common femoral, superficial femoral, popliteal and posterior tibial veins bilaterally are compressible and demonstrate augmentation. Doppler demonstrates good flow. IMPRESSION: No evidence of deep venous thrombosis involving either lower extremity.
[2020-07-18] MEDS ORDERED: ALBUTEROL 2.5 MG/3 ML NEB SOL NEB PRN (11:00)
[2020-07-18] MEDS ORDERED: Albuterol Sulfate [Proair Respiclick] 90 MCG Aer.Pow.Ba IH PRN (16:05)
[2020-07-18] MEDS ORDERED: Budesonide/Formoterol Fumarate [Symbicort 160-4.5 Mcg Inhaler] 10.2 GM IH SCH (16:15)
[2020-07-18] MEDS ORDERED: METOLAZONE 10 MG PO SCH (17:00)
[2020-07-18] MEDS: RIVAROXABAN 20 MG TABLET PO SCH (17:00)
[2020-07-18] MEDS: TRAMADOL HCL 50 MG TAB PO PRN (18:37)
[2020-07-18] MEDS ORDERED: ROPINIROLE HCL 12 MG PO SCH (21:00)
[2020-07-18] MEDS ORDERED: ATORVASTATIN 20 MG TAB PO SCH (21:00)
[2020-07-18] MEDS ORDERED: ROPINIROLE PO SCH (21:00)
[2020-07-18] MEDS: METOPROLOL TAR 50 MG TAB PO SCH (21:45)
[2020-07-19 05:28] LABS: Absolute Lymphocytes (CBC) 1.1 K/uL (0.7-4.9); Basophils % 0.5 % (0-1.3); Hematocrit 39.2 % (39.6-49.0); MPV 9.6 fL (7.6-11.3); RBC Red Blood Cell Count 4.55 M/uL (4.33-5.43)
[2020-07-19 05:59] LABS: Magnesium 2.1 mg/dL (1.8-2.4); Phosphorus 2.9 mg/dL (2.5-4.9); Potassium 3.2 mmol/L (3.5-5.1); Thyroid Stimulating Hormone 1.4 uIU/mL (0.360-3.740)
[2020-07-19] MEDS: TRAMADOL HCL 50 MG TAB PO PRN (07:35)
[2020-07-19] MEDS: POTASSIUM CL SA 10 MEQ TAB PO SCH (08:37)
[2020-07-19] MEDS: SPIRONOLACTONE 25 MG TABLET PO SCH (08:38)
[2020-07-19] MEDS: METOPROLOL TAR 50 MG TAB PO SCH (08:39)
[2020-07-19] MEDS ORDERED: MULTIVITAMIN TAB PO SCH (09:00)
[2020-07-19] MEDS ORDERED: POTASSIUM CL SA 10 MEQ TAB PO ONE (09:00)
[2020-07-19] MEDS ORDERED: HOME MED 1 EA UNK (Multivitamin [Multiple Vitamins] Tablet) PO SCH (09:00)
--- NOTE | 2020-07-19 12:58 | P.PN ---
Subjective Date of Service: 07/18/20 Subjective: No new changes, Improving Review of Systems 10-point ROS is otherwise unremarkable Physical Examination - Vital Signs Temperature: 98.2 F Blood Pressure: 134/65 Pulse: 67 Respirations: 18 Pulse Ox (%): 94 - Physical Exam General: Alert, In no apparent distress, Oriented x3 Respiratory: Clear to auscultation bilaterally, Normal air movement Cardiovascular: Regular rate/rhythm, Normal S1 S2, No murmurs Gastrointestinal: Normal bowel sounds, Soft and benign, Non-distended, No tenderness Neurological: Sensation intact, Cranial nerves 3-12 intact - Studies Medications List Reviewed: Yes Assessment & Plan - Problems (Diagnosis) (1) CHF (congestive heart failure), NYHA class II Status: Acute (2) Hypokalemia Status: Acute (3) Leg edema Status: Acute (4) Acute renal injury Onset Date: 07/04/17 Status: Acute (5) COPD exacerbation Status: Acute (6) CVA (cerebral vascular accident) Onset Date: 01/08/16 Status: Acute Qualifiers: CVA mechanism: unspecified Qualified Code(s): I63.9 - Cerebral infarction, unspecified - Plan 1. ECHOCARDIOGRAM AN OUTPT 2. CONTINUE WITH CARDIAC MEDS 3. CONTINUE WITH REQUIP 4. CARDIOLOGY CONSULTATION 5. AGGRESSIVE DIURESIS 6. STRICT I'S AND O'S 7. REPEAT CXR 8. DAILY WEIGHTS 9. EDUCATION REGARDING DIET AND TREATMENT OF CONGESTIVE HEART FAILURE Discharge Plan: Home Plan to discharge in: Greater than 2 days - Advance Directives Does patient have a Living Will: No Does patient have a Durable POA for Healthcare: No
--- NOTE | 2020-07-19 14:28 | RAD REPORT ---
EXAM DESCRIPTION: CT - Head Brain Wo Cont - 07/19/2020 2:20 pm CLINICAL HISTORY: headache; h/o of TIA; h/o of CAD Headache, drowsiness COMPARISON: Sinus Wo Cont dated 07/19/2020; Head Brain Wo Cont dated 07/03/2017 TECHNIQUE: All CT scans are performed using dose optimization technique as appropriate and may inclu de automated exposure control or mA/KV adjustment according to patient size. FINDINGS: No intracranial hemorrhage, hydrocephalus or extra-axial fluid collection.Areas of gliosis seen right frontal lobe left cerebellar hemisphere noted, most compatible with old infarctions.No ar eas of brain edema or evidence of midline shift. The paranasal sinuses and mastoids are clear. The calvarium is intact. IMPRESSION: No acute intracranial abnormality.
--- NOTE | 2020-07-19 14:30 | RAD REPORT ---
EXAM DESCRIPTION: CT - Sinus Wo Cont - 07/19/2020 2:21 pm CLINICAL HISTORY: headache Headache, drowsiness COMPARISON: Head Brain Wo Cont dated 07/03/2017; Head Brain Wo Cont dated 01/06/2016 TECHNIQUE: Axial 3 mm thick images of the paranasal sinuses were obtained. Coronal and sagittal refo rmatted images were reviewed. All CT scans are performed using dose optimization technique as appropriate and may include automated exposure control or mA/KV adjustment according to patient size. FINDINGS: The paranasal sinuses and mastoids are clear. The ostiomeatal units are patent. The frontal recesses are patent. No significant skull-base finding. IMPRESSION: Unremarkable examination.
[2020-07-19 16:39] VITALS: O2SAT 96
[2020-07-19] MEDS: RIVAROXABAN 20 MG TABLET PO SCH (16:56)
[2020-07-19] MEDS ORDERED: INFLUENZA VACCINE (for 3y+) 0.5 ML DOSE IMVAC ONE (17:00)
--- NOTE | 2020-07-20 07:58 | EKG ---
Test Date: 2020-07-17 Test Time: 20:07:17 Auto Mechanics Instructor: MG MEASUREMENT RESULTS: Intervals: Rate: 62 MA: 176 QRSD: 178 QT: 484 QTc: 491 [place]: P: -2 MA: 176 QRS: -84 T: 53 INTERPRETIVE STATEMENTS: Normal sinus rhythm Left axis deviation Left ventricular hypertrophy with QRS widening Cannot rule out Anteroseptal infarct, age undetermined Abnormal ECG Compared to ECG 09/01/2017 13:41:13 Sinus bradycardia no longer present Ventricular premature complex(es) no longer present Myocardial infarct finding still present Electronically Signed On 07-20-20 07:53:51 SYNTHETIC DEPARTMENT SUPERVISOR by Gevoanny Garrett
--- NOTE | 2020-07-20 11:07 | CON ---
Date of Consultation: 07/18/2020 Reason For Consultation: Edema and hypokalemia. History Of Present Illness: Mr. Wylie is a 70-year-old white male. He is very well known to me from previous office visits and admission. He has normal coronary arteries. He has chronic diastol ic congestive heart failure. He had aortic stenosis status post aortic valve replacement x2. Recent echocardiography in the office has been normal as far as the aortic valve is concerned. He does hav e diastolic congestive heart failure, paroxysmal atrial fibrillation, hypertension, dyslipidemia. Hi s edema had been very significant secondary to a combination of venous insufficiency as well as diast olic congestive heart failure that has required extensive doses of Lasix as well as Zaroxolyn. He co mes in with edema and hypokalemia. No shortness of breath. No chest pain. No nausea, vomiting, checo phoresis. He denied PND, orthopnea. Denied palpitation or syncope. Denied fever or chills or chest pain. Past Medical History: As stated above. Allergies: HE IS ALLERGIC TO BACTRIM. Medications: At home was Zaroxolyn p.r.n., Lasix, Lipitor, potassium, metoprolol, Xarelto, and inhal ers. Physical Examination: General: He was in no acute distress. Vital signs: Stable, afebrile. HEENT: Negative. Neck: Supple with no bruit. Chest: Clear. Cardiac: Revealed a regular rhythm and rate. No murmurs, gallops, or rubs. Abdomen: Benign. Extremities: Revealed 1+ edema with chronic venous insufficiency changes. Mr. Wylie already had an extensive workup including venous Doppler that were negative, chest x-r ay that was negative. CT of the chest was negative. He does have a creatinine 1.82 and potassium is 3.3. His BNP is 354. Impression And Plan: 1.Acute on chronic diastolic congestive heart failure. 2.Hypertension. 3.Dyslipidemia. 4.Renal insufficiency. 5.Hypokalemia. 6.Status post aortic valve replacement. 7.Chronic atrial fibrillation. The patient did need to remain on Xarelto, metoprolol. We had to in crease his Lasix dose at home. We need to stop Zaroxolyn. Continue the Lasix, inhalers, and Lipitor . I will discuss the case further with Dr. Pino. There is really no need for any more cardiac damon p at this point. I will see him in the office in the next week or two when he goes home. TEOFILO/KEM Voice ID: [id number] Report ID: [id number]
[2020-07-21 16:09] LABS: Rheumatoid Factor NEG (NEG)
[2020-08-13 21:37] VITALS: BP 134/65; TEMP 98.2
--- NOTE | 2020-08-13 21:39 | P.DS ---
Discharge Date: 07/19/20 Disposition: ROUTINE DISCHARGE Discharge Condition: GOOD Reason for Admission: abnormal blood work - Problems (1) CHF (congestive heart failure), NYHA class II Status: Acute (2) Hypokalemia Status: Acute (3) Leg edema Status: Acute (4) Acute renal injury Onset Date: 07/04/17 Status: Acute (5) COPD exacerbation Status: Acute (6) CVA (cerebral vascular accident) Onset Date: 01/08/16 Status: Acute Qualifiers: CVA mechanism: unspecified Qualified Code(s): I63.9 - Cerebral infarction, unspecified Brief History of Present Illness: Patient is a 70 yr old male with HTN , DM , Aortic valve replacement, systolic CHF , with recent worsening body swelling and added metolazone to diuretics regime since last month, but still persistent leg swelling , seen by his PCP today and noted with low potassium on labs and sent to ER. On arrival repeat potassium as low at 2.7.CXR shows no acute pul edema . Reported SOB but patient denies any worsening SOB now . He state adherence with his kcl 10 meq bid use . No recent diarrhea or vomiting Hospital Course: Patient has done well during hospital stay. Patient was diuresed effectively. Patient is clinically doing well with no new complaints. At this time, patient is stable for discharge. Patient will follow up with Cardiology and Pulmonary in 1-2 weeks. Patient will need outpatient echocardiogram for further evaluation. Vital Signs/Physical Exam: Temp Pulse Resp BP Pulse Ox 98.2 F 67 18 134/65 94 08/13/20 21:36 08/13/20 21:36 08/13/20 21:36 08/13/20 21:36 08/13/20 21:36 General: Alert, In no apparent distress, Oriented x3 Laboratory Data at Discharge: WBC 13.10 K/uL (4.3-10.9) H D 07/19/20 05:15 Hgb 13.0 g/dL (13.6-17.9) L 07/19/20 05:15 Hct 39.2 % (39.6-49.0) L 07/19/20 05:15 Plt Count 133 K/uL (152-406) L 07/19/20 05:15 PT 17.9 SECONDS (9.5-12.5) H 07/17/20 20:00 INR 1.55 07/17/20 20:00 Sodium 144 mmol/L (136-145) 07/19/20 05:15 Potassium 3.5 mmol/L (3.5-5.1) 07/19/20 15:41 BUN 30 mg/dL (7-18) H 07/19/20 05:15 Creatinine 1.44 mg/dL (0.55-1.3) H 07/19/20 05:15 Glucose 200 mg/dL (74-106) H 07/19/20 05:15 Phosphorus 2.9 mg/dL (2.5-4.9) 07/19/20 05:15 Magnesium 2.1 mg/dL (1.8-2.4) 07/19/20 05:15 Total Bilirubin 0.7 mg/dL (0.2-1.0) 07/18/20 05:00 AST 20 U/L (15-37) 07/18/20 05:00 ALT 22 U/L (12-78) 07/18/20 05:00 Alkaline Phosphatase 90 U/L (45-117) 07/18/20 05:00 Home Medications: Ropinirole HCl 12 mg PO BEDTIME 01/06/16 Metoprolol Tartrate [Lopressor*] 100 mg PO BID #120 tab 07/06/17 Albuterol Sulfate [Proair Respiclick] 2 puff IH Q4HP PRN 07/18/20 Budesonide/Formoterol Fumarate [Symbicort 160-4.5 Mcg Inhaler] 2 puff IH Q12H 07/18/20 Furosemide [Lasix*] 80 mg PO BID 07/18/20 Multivitamin [Multiple Vitamins] 1 tab PO DAILY 07/18/20 Potassium Chloride 10 meq PO BID 07/18/20 Rivaroxaban [Xarelto*] 20 mg PO BEDTIME 07/18/20 traMADol HCL [Ultram*] 50 mg PO BIDP PRN 07/18/20 Cyanocobalamin (Vitamin B-12) [Vitamin B12] 5,000 mcg SL DAILY #30 tab.rapdis 07/19/20 Minocycline HCl 100 mg PO Q12H #20 capsule 07/19/20 Atorvastatin Calcium [Lipitor*] 20 mg PO DAILY 08/10/20 New Medications: Minocycline HCl 100 mg PO Q12H #20 capsule Cyanocobalamin (Vitamin B-12) [Vitamin B12] 5,000 mcg SL DAILY #30 tab.rapdis Physician Discharge Instructions: OK TO DC IV AND DC HOME FOLLOW-UP WITH PRIMARY CARE PROVIDER IN 1-2 WEEKS FOLLOW-UP WITH NEUROLOGY IN 1-2 WEEKS Follow-up with ENT in 4 weeks for sinus issues Patient should also follow up with Nephrology, Dr. Todd in 3 weeks RETURN TO THE ER IF SYMPTOMS WORSEN CALL or TEXT DR. ELIZABETH AT [phone] IF ANY QUESTIONS REGARDING HOSPITAL STAY. PLEASE CALL THE FLOOR AT [phone] IF ANY MEDICATION OR NURSING QUESTIONS. Diet: Low sodium Activity: Fall precautions Followup: Neo Todd MD [ACTIVE - CAN ADMIT] - Thomas Marte MD [ASSOCIATE-ACTIVE - CAN ADMIT] - Mikhail Lee MD [Primary Care Provider] - Time spent managing pt's care (in minutes): 34
== END 2020-07-19 18:21 | disposition home or self-care (01) ==
LOC: ER 19:20 → ERHOLD 23:29 → 2ND 07-18 11:29
PROVIDERS: ADMIT Hospitalist; ATTEND Hospitalist
DX: I11.0 Hypertensive heart disease with heart failure (principal); I50.33 Acute on chronic diastolic (congestive) heart failure; Z95.2 Presence of prosthetic heart valve; I48.0 Paroxysmal atrial fibrillation; E87.6 Hypokalemia; Z20.822 Contact with and (suspected) exposure to COVID-19; N17.9 Acute kidney failure, unspecified; J44.1 Chronic obstructive pulmonary disease with (acute) exacerbation; E78.5 Hyperlipidemia, unspecified; Z86.73 Personal history of transient ischemic attack (TIA), and cerebral infarction without residual deficits; Z79.01 Long term (current) use of anticoagulants; Z87.891 Personal history of nicotine dependence; G25.81 Restless legs syndrome; N40.0 Benign prostatic hyperplasia without lower urinary tract symptoms; R94.31 Abnormal electrocardiogram [ECG] [EKG]
CPT/HCPCS: 96365; 93005; 85025 ×3; 80048 ×2; 36415 ×2; 83735 ×2; 86430; 84100 ×2; 84132; 85610; 80076; 83605 ×2; 85652; 84443; 84484; 84439; 80053; 82533; 86200; 86038; 86225; 83880 ×2; 86140; 70450; 70486; 71250; 71045; 93970; 94760 ×2; 96375; 99285; 96366; U0003; J1940; J3480 ×2; J7030; J2930

== ENCOUNTER 2020-08-09 20:12 | Inpatient (IN) | payer OTHER ==
--- OUTSIDE RECORDS SUMMARY | 2020-08-09 20:18 | XMS REPORT | Continuity of Care Document ---
:1950 Author Organization [facility] t Address [address] [place] [address] Care Team Providers Name Role Phone Rose Mary Cota Primary Care Physician ALEC VELEZ Attending Clinician Unavailable GURINDER MCCOY Attending Clinician Unavailable ALEC VELEZ Admitting Clinician Unavailable Problems Condition Condition Condition Status Onset Resolution Last Treating Co mments Source Name Details Category Date Date Treatment Clinician Date Nonrheumat Nonrheumat Disease Active [facility] ic aortic ic aortic 5-08 [facility] - valve valve 00:00: Medical stenosis stenosis 00 Center Subacute Subacute Disease [facility] 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 Me dical is is Center Hypertensi Hypertensi Disease Active [facility] on on [facility] TIA TIA Disease Active [facility] (transient (transient Jodi kes - ischemic ischemic Medica l attack) attack) Center Other Other Disease Active [facility] specified specified Luke s - hypotensio hypotensio Me dical n n Center Acute Acute Disease Active [facility] respirator respirator Jodi kes - y y Medical insufficie insufficie Ce nter ncy ncy Postoperat Postoperat Disease Active [facility] juventino anemia juventino anemia Jodi kes - due to due to Medical acute acute Center blood loss blood loss Thrombocyt Thrombocyt Disease Active [facility] openia openia [facility] Hyperglyce Hyperglyce Disease Active [facility] monika monika [facility] Atrial Atrial Disease Active [facility] fibrillati fibrillati Jodi kes - on with on with Medical RVR RVR Center ECG ECG Disease Active [facility] showing showing kes - electrical electrical Me dical capture capture Center after after temporary temporary pacing pacing H/O H/O Disease Active [facility] asbestosis asbestosis [facility] AV block AV block Disease Active [facility] t [facility] Allergies, Adverse Reactions, Alerts Allergy Allergy Status Severity Reaction(s) Onset Inactive Treating Comm ents Source Name Type Date Date Clinician Sulfgurjit Reina Active [facility] hoxazole ty to 4-25 [facility] - -Trimeth adverse 00:00: Medical oprim reaction 00 [place] [facility] Family History Family Member Diagnosis Comments Start Date Stop Date Source Natural father Heart disease [facility] Social History Social Habit Start Date Stop Date Quantity Comments Source History of tobacco Chews Tobacco [facility] use [facility] Sex Assigned [facility] Tobacco use and 2017-10-20 2017-10-20 Current user [facility] - exposure 00:00:00 00:00:00 [facility] Alcohol intake 2017-10-20 2017-10-20 Current [facility] es - 00:00:00 00:00:00 non-drinker of Medical Ce nter alcohol (finding) Cigarettes smoked 2017-10-20 2017-10-20 [facility] - current (pack per 00:00:00 00:00:00 [facility] Center day) - Reported Cigarette 2017-10-20 2017-10-20 [facility] - pack-years 00:00:00 00:00:00 [facility] Smoking Status Start Date Stop Date Source Former smoker 2017-10-20 00:00:00 2017-10-20 00:00:00 [facility] Medications Ordered Filled Start Stop Current Ordering Indication Dosage Frequency Signature Comments Components Source Medication Medication Date Date Medication? Clinician (SIG) Name Name atorvastati Yes 20mg QD Take [address] [facility] n (LIPITOR) 5-22 by mouth Luke s - 20 MG 14:34: daily. Medical tablet [address] [place] [address] metoprolol Yes 100mg Q.5D Take [address] (LOPRESSOR) 5-22 mg by [facility] - 100 MG 14:34: mouth 2 Medical tablet 00 (two) Center times daily. warfarin Yes 6mg QD Take [address] [address] (COUMADIN) 5-22 by mouth [facility] - 6 MG tablet 14:34: daily. Medi jill 00 Center acetaminoph Yes 1{tbl} Take [address] en-codeine 5-22 tablet by Elmer woo - (TYLENOL 00:00: mouth Medical #3) 300-30 00 every 4 Center mg per (four) tablet hours as needed. Max Daily Amount: 6 tablets Procedures This patient has no known procedures. Plan of Care Planned Activity Planned Date Details Comments Source Future Scheduled 2020-02-05 INFLUENZA VACCINE (#1) [facility] Test 00:00:00 [code = INFLUENZA Medical Ce nter VACCINE (#1)] Future Scheduled 2018-06-[address] [facility] - Test 00:00:00 WELLNESS (YEAR 2 or Medical Center FIRST YEAR if no IPPE) [code = MEDICARE ANNUAL WELLNESS (YEAR 2 or FIRST YEAR if no IPPE)] Future Scheduled 2016 PNEUMOCOCCAL 65+ YRS [facility] - Test 00:00:00 (1 of 1 - Medical Center [id number]) [code = PNEUMOCOCCAL 65+ YRS (1 of 1 - [id number] PCV13)] Future Scheduled [address] [facility] - Test 00:00:00 malignant neoplasm of Medica l Center colon (procedure) [code = [id number]] Results Test Description Test Time Test Comments Results Result Comments Source AFB CULTURE + SMEAR 2017-11-30 12:58:00 Test Item Value Reference Range Interpretation Comme nts CULTURE (BEAKER) (test code = 1095) No acid-fast bacilli isolated i n 42 days AFB SMEAR (BEAKER) (test code = 994) No acid fast bacilli seen FUNGUS CULTURE + [id number] 12:55:00 Test Item Value Reference Range Interpretation Comments CULTURE (BEAKER) (test No fungus isolated in code = 1095) 28 days FUNGUS SMEAR (BEAKER) No fungi seen (test code = 1406) [id number] 06:12:00 Test Item Value Reference Range Interpretation Comments MAGNESIUM (BEAKER) (test code = 1.8 mg/dL 1.6-2.6 627) BASIC METABOLIC [id number] 06:12:00 Test Item Value Reference Range Interpretation Comments SODIUM (BEAKER) 137 meq/L 136-145 (test code = 381) POTASSIUM (BEAKER) 4.2 meq/L 3.5-5.1 (test code = 379) CHLORIDE (BEAKER) 96 meq/L 98-107 L (test code = 382) CO2 (BEAKER) (test 34 meq/L 22-29 H code = 355) BLOOD UREA NITROGEN 22 mg/dL 7-21 H (BEAKER) (test code = 354) CREATININE (BEAKER) 1.16 mg/dL 0.57-1.25 (test code = 358) GLUCOSE RANDOM 95 mg/dL 70-105 (BEAKER) (test code = 652) CALCIUM (BEAKER) 8.5 mg/dL 8.4-10.2 (test code = 697) EGFR (BEAKER) (test 63 mL/min/1.73 ESTIMA REEYS GFR IS code = 1092) sq m NOT ACCURATE CREATININE CLEARANCE IN PREDICTING GLOMERULAR FILTRATION RATE . ESTIMATED GFR I S NOT APPLICABLE FOR DIALYSIS PATIEN TS. PROTHROMBIN [id number] 05:58:00 Test Item Value Reference Range Interpretation Comments PROTIME (BEAKER) (test code = 28.3 seconds 11.7-14.7 H 759) INR (BEAKER) (test code = 370) 2.7 <=5.9 RECOMMENDED COUMADIN/WARFARIN INR THERAPY RANGESSTANDARD DOSE: 2.0 - 3.0 Includes: PROPHYLAXIS forvenous thrombosis, systemic embolization; TREATMENT for venous thrombosis and/or pulmonary embolus.HIGH RISK: Target INR is 2.5-3.5 for patients with mechanical heart valves.[id number] 07:12:00 Test Item Value Reference Range Interpretation Comments MAGNESIUM (BEAKER) (test code = 1.9 mg/dL 1.6-2.6 627) BASIC METABOLIC [id number] 07:12:00 Test Item Value Reference Range Interpretation Comments SODIUM (BEAKER) 136 meq/L 136-145 (test code = 381) POTASSIUM (BEAKER) 4.1 meq/L 3.5-5.1 (test code = 379) CHLORIDE (BEAKER) 97 meq/L 98-107 L (test code = 382) CO2 (BEAKER) (test 31 meq/L 22-29 H code = 355) BLOOD UREA NITROGEN 21 mg/dL 7-21 (BEAKER) (test code = 354) CREATININE (BEAKER) 1.11 mg/dL 0.57-1.25 (test code = 358) GLUCOSE RANDOM 98 mg/dL 70-105 (BEAKER) (test code = 652) CALCIUM (BEAKER) 8.5 mg/dL 8.4-10.2 (test code = 697) EGFR (BEAKER) (test 66 mL/min/1.73 ESTIMA REYES GFR IS code = 1092) sq m NOT ACCURATE CREATININE CLEARANCE IN PREDICTING GLOMERULAR FILTRATION RATE . ESTIMATED GFR I S NOT APPLICABLE FOR DIALYSIS PATIEN TS. PROTHROMBIN [id number] 07:03:00 Test Item Value Reference Range Interpretation Comments PROTIME (BEAKER) (test code = 23.1 seconds 11.7-14.7 H 759) INR (BEAKER) (test code = 370) 2.1 <=5.9 RECOMMENDED COUMADIN/WARFARIN INR THERAPY RANGESSTANDARD DOSE: 2.0 - 3.0 Includes: PROPHYLAXIS forvenous thrombosis, systemic embolization; TREATMENT for venous thrombosis and/or pulmonary embolus.HIGH RISK: Target INR is 2.5-3.5 for patients with mechanical heart valves.CBC (HEMOGRAM ONLY)2017-10-24 06:56:00 Test Item Value Reference Range Interpretation Comments WHITE BLOOD CELL COUNT (BEAKER) 8.6 K/ L 3.5-10.5 (test code = 775) RED BLOOD CELL COUNT (BEAKER) 2.98 M/ L 4.63-6.08 L (test code = 761) HEMOGLOBIN (BEAKER) (test code = 8.0 GM/DL 13.7-17.5 L 410) HEMATOCRIT (BEAKER) (test code = 25.7 % 40.1-51.0 L 411) MEAN CORPUSCULAR VOLUME (BEAKER) 86.2 fL 79.0-92.2 (test code = 753) MEAN CORPUSCULAR HEMOGLOBIN 26.8 pg 25.7-32.2 (BEAKER) (test code = 751) MEAN CORPUSCULAR HEMOGLOBIN CONC 31.1 GM/DL 32.3-36.5 L (BEAKER) (test code = 752) RED CELL DISTRIBUTION WIDTH 14.7 % 11.6-14.4 H (BEAKER) (test code = 412) PLATELET COUNT (BEAKER) (test 220 K/CU MM 150-450 code = 756) MEAN PLATELET VOLUME (BEAKER) 9.9 fL 9.4-12.4 (test code = 754) NUCLEATED RED BLOOD CELLS 0 /100 WBC 0-0 (BEAKER) (test code = 413) PROTHROMBIN [id number] 06:31:00 Test Item Value Reference Range Interpretation Comments PROTIME (BEAKER) (test code = 19.7 seconds 11.7-14.7 H 759) INR (BEAKER) (test code = 370) 1.7 <=5.9 RECOMMENDED COUMADIN/WARFARIN INR THERAPY RANGESSTANDARD DOSE: 2.0 - 3.0 Includes: PROPHYLAXIS forvenous thrombosis, systemic embolization; TREATMENT for venous thrombosis and/or pulmonary embolus.HIGH RISK: Target INR is 2.5-3.5 for patients with mechanical heart valves.BASIC METABOLIC [id number] 07:22:00 Test Item Value Reference Range Interpretation Comments SODIUM (BEAKER) 134 meq/L 136-145 L (test code = 381) POTASSIUM (BEAKER) 3.5 meq/L 3.5-5.1 (test code = 379) CHLORIDE (BEAKER) 96 meq/L 98-107 L (test code = 382) CO2 (BEAKER) (test 28 meq/L 22-29 code = 355) BLOOD UREA NITROGEN 23 mg/dL 7-21 H (BEAKER) (test code = 354) CREATININE (BEAKER) 1.09 mg/dL 0.57-1.25 (test code = 358) GLUCOSE RANDOM 107 mg/dL 70-105 H (BEAKER) (test code = 652) CALCIUM (BEAKER) 8.0 mg/dL 8.4-10.2 L (test code = 697) EGFR (BEAKER) (test 68 mL/min/1.73 ESTIMA REYES GFR IS code = 1092) sq m NOT ACCURATE CREATININE CLEARANCE IN PREDICTING GLOMERULAR FILTRATION RATE . ESTIMATED GFR I S NOT APPLICABLE FOR DIALYSIS PATIEN TS. PROTHROMBIN [id number] 05:55:00 Test Item Value Reference Range Interpretation Comments PROTIME (BEAKER) (test code = 16.6 seconds 11.7-14.7 H 759) INR (BEAKER) (test code = 370) 1.3 <=5.9 RECOMMENDED COUMADIN/WARFARIN INR THERAPY RANGESSTANDARD DOSE: 2.0 - 3.0 Includes: PROPHYLAXIS forvenous thrombosis, systemic embolization; TREATMENT for venous thrombosis and/or pulmonary embolus.HIGH RISK: Target INR is 2.5-3.5 for patients with mechanical heart valves.CALCIUM, [id number] 05:54:00 Test Item Value Reference Range Interpretation Comments CALCIUM IONIZED (BEAKER) (test 1.02 mmol/L 1.12-1.27 L code = 698) PH, BLOOD (BEAKER) (test code = 7.39 1810) Check serum Ionized Calcium level after 4 hours after IV Calcium replacement.CBC (HEMOGRAM ONLY)2017-10-22 05:04:00 Test Item Value Reference Range Interpretation Comments WHITE BLOOD CELL COUNT (BEAKER) 7.8 K/ L 3.5-10.5 (test code = 775) RED BLOOD CELL COUNT (BEAKER) 2.86 M/ L 4.63-6.08 L (test code = 761) HEMOGLOBIN (BEAKER) (test code = 7.7 GM/DL 13.7-17.5 L 410) HEMATOCRIT (BEAKER) (test code = 24.6 % 40.1-51.0 L 411) MEAN CORPUSCULAR VOLUME (BEAKER) 86.0 fL 79.0-92.2 (test code = 753) MEAN CORPUSCULAR HEMOGLOBIN 26.9 pg 25.7-32.2 (BEAKER) (test code = 751) MEAN CORPUSCULAR HEMOGLOBIN CONC 31.3 GM/DL 32.3-36.5 L (BEAKER) (test code = 752) RED CELL DISTRIBUTION WIDTH 14.8 % 11.6-14.4 H (BEAKER) (test code = 412) PLATELET COUNT (BEAKER) (test 222 K/CU MM 150-450 code = 756) MEAN PLATELET VOLUME (BEAKER) 10.1 fL 9.4-12.4 (test code = 754) NUCLEATED RED BLOOD CELLS 0 /100 WBC 0-0 (BEAKER) (test code = 413) CALCIUM, [id number] 04:33:00 Test Item Value Reference Range Interpretation Comments CALCIUM IONIZED (BEAKER) (test 1.01 mmol/L 1.12-1.27 L code = 698) PH, BLOOD (BEAKER) (test code = 7.36 1810) Check serum Ionized Calcium level after 4 hours after IV Calcium replacement. BASIC METABOLIC [id number] 04:27:00 Test Item Value Reference Range Interpretation Comments SODIUM (BEAKER) 135 meq/L 136-145 L (test code = 381) POTASSIUM (BEAKER) 3.7 meq/L 3.5-5.1 (test code = 379) CHLORIDE (BEAKER) 98 meq/L 98-107 (test code = 382) CO2 (BEAKER) (test 28 meq/L 22-29 code = 355) BLOOD UREA NITROGEN 27 mg/dL 7-21 H (BEAKER) (test code = 354) CREATININE (BEAKER) 1.14 mg/dL 0.57-1.25 (test code = 358) GLUCOSE RANDOM 105 mg/dL 70-105 (BEAKER) (test code = 652) CALCIUM (BEAKER) 7.9 mg/dL 8.4-10.2 L (test code = 697) EGFR (BEAKER) (test 64 mL/min/1.73 ESTIMA REYES GFR IS code = 1092) sq m NOT ACCURATE CREATININE CLEARANCE IN PREDICTING GLOMERULAR FILTRATION RATE . ESTIMATED GFR I S NOT APPLICABLE FOR DIALYSIS PATIEN TS. [id number] 04:25:00 Test Item Value Reference Range Interpretation Comments MAGNESIUM (BEAKER) (test code = 1.8 mg/dL 1.6-2.6 627) PROTHROMBIN [id number] 04:09:00 Test Item Value Reference Range Interpretation Comments PROTIME (BEAKER) (test code = 16.0 seconds 11.7-14.7 H 759) INR (BEAKER) (test code = 370) 1.3 <=5.9 RECOMMENDED COUMADIN/WARFARIN INR THERAPY RANGESSTANDARD DOSE: 2.0 - 3.0 Includes: PROPHYLAXIS forvenous thrombosis, systemic embolization; TREATMENT for venous thrombosis and/or pulmonary embolus.HIGH RISK: Target INR is 2.5-3.5 for patients with mechanical heart valves.CBC (HEMOGRAM ONLY)2017-10-21 04:01:00 Test Item Value Reference Range Interpretation Comments WHITE BLOOD CELL COUNT (BEAKER) 7.0 K/ L 3.5-10.5 (test code = 775) RED BLOOD CELL COUNT (BEAKER) 2.73 M/ L 4.63-6.08 L (test code = 761) HEMOGLOBIN (BEAKER) (test code = 7.5 GM/DL 13.7-17.5 L 410) HEMATOCRIT (BEAKER) (test code = 23.7 % 40.1-51.0 L 411) MEAN CORPUSCULAR VOLUME (BEAKER) 86.8 fL 79.0-92.2 (test code = 753) MEAN CORPUSCULAR HEMOGLOBIN 27.5 pg 25.7-32.2 (BEAKER) (test code = 751) MEAN CORPUSCULAR HEMOGLOBIN CONC 31.6 GM/DL 32.3-36.5 L (BEAKER) (test code = 752) RED CELL DISTRIBUTION WIDTH 15.1 % 11.6-14.4 H (BEAKER) (test code = 412) PLATELET COUNT (BEAKER) (test 186 K/CU MM 150-450 code = 756) MEAN PLATELET VOLUME (BEAKER) 9.6 fL 9.4-12.4 (test code = 754) NUCLEATED RED BLOOD CELLS 0 /100 WBC 0-0 (BEAKER) (test code = 413) RAD, CHEST, 2 [id number] 16:20:00Reason for exam:->S/P PACEMAKERShould this be performed at the bedside?->NoFINAL REPORT CLINICAL HISTORY: S/P PACEMAKER TECHNIQUE: 2 views of the chest COMPARISON: 10/18/2017 IMPRESSION: A left chest wall pacemaker is again seen without pneumothorax. Theright central line is unchanged. Bilateral airspace opacities and small pleural effusions are unchanged. Cardiomegaly is again seen poststernotomy. Signed: Darius Slaughter MDReport Verified Date/Time: 10/20/2017 16:20:59 Reading Location: [facility] B1 C013W Consult Reading Room PROTHROMBIN TIME/INR 2017-10-20 10:42:00 Test Item Value Reference Range Interpretation Comments PROTIME (BEAKER) (test code = 16.2 seconds 11.7-14.7 H 759) INR (BEAKER) (test code = 370) 1.3 <=5.9 RECOMMENDED COUMADIN/WARFARIN INR THERAPY RANGESSTANDARD DOSE: 2.0 - 3.0 Includes: PROPHYLAXIS forvenous thrombosis, systemic embolization; TREATMENT for venous thrombosis and/or pulmonary embolus.HIGH RISK: Target INR is 2.5-3.5 for patients with mechanical heart valves.B-TYPE NATRIURETIC FACTOR (BNP)2017-10-20 10:32:00 Test Item Value Reference Range Interpretation Comments B-TYPE NATRIURETIC PEPTIDE (BEAKER) 306 pg/mL 0-100 H (test code = 700) [id number] 07:17:00 Test Item Value Reference Range Interpretation Comments MAGNESIUM (BEAKER) (test code = 2.1 mg/dL 1.6-2.6 627) BASIC METABOLIC [id number] 07:17:00 Test Item Value Reference Range Interpretation Comments SODIUM (BEAKER) 136 meq/L 136-145 (test code = 381) POTASSIUM (BEAKER) 3.4 meq/L 3.5-5.1 L (test code = 379) CHLORIDE (BEAKER) 98 meq/L 98-107 (test code = 382) CO2 (BEAKER) (test 31 meq/L 22-29 H code = 355) BLOOD UREA NITROGEN 27 mg/dL 7-21 H (BEAKER) (test code = 354) CREATININE (BEAKER) 1.05 mg/dL 0.57-1.25 (test code = 358) GLUCOSE RANDOM 103 mg/dL 70-105 (BEAKER) (test code = 652) CALCIUM (BEAKER) 8.3 mg/dL 8.4-10.2 L (test code = 697) EGFR (BEAKER) (test 71 mL/min/1.73 ESTIMA REYES GFR IS code = 1092) sq m NOT ACCURATE CREATININE CLEARANCE IN PREDICTING GLOMERULAR FILTRATION RATE . ESTIMATED GFR I S NOT APPLICABLE FOR DIALYSIS PATIEN TS. CBC (HEMOGRAM ONLY)2017-10-20 06:48:00 Test Item Value Reference Range Interpretation Comments WHITE BLOOD CELL COUNT (BEAKER) 8.7 K/ L 3.5-10.5 (test code = 775) RED BLOOD CELL COUNT (BEAKER) 2.86 M/ L 4.63-6.08 L (test code = 761) HEMOGLOBIN (BEAKER) (test code = 7.8 GM/DL 13.7-17.5 L 410) HEMATOCRIT (BEAKER) (test code = 24.4 % 40.1-51.0 L 411) MEAN CORPUSCULAR VOLUME (BEAKER) 85.3 fL 79.0-92.2 (test code = 753) MEAN CORPUSCULAR HEMOGLOBIN 27.3 pg 25.7-32.2 (BEAKER) (test code = 751) MEAN CORPUSCULAR HEMOGLOBIN CONC 32.0 GM/DL 32.3-36.5 L (BEAKER) (test code = 752) RED CELL DISTRIBUTION WIDTH 14.9 % 11.6-14.4 H (BEAKER) (test code = 412) PLATELET COUNT (BEAKER) (test 186 K/CU MM 150-450 code = 756) MEAN PLATELET VOLUME (BEAKER) 10.4 fL 9.4-12.4 (test code = 754) NUCLEATED RED BLOOD CELLS 0 /100 WBC 0-0 (BEAKER) (test code = 413) HEMOGLOBIN AND [id number] 11:46:00 Test Item Value Reference Range Interpretation Comments HEMOGLOBIN (BEAKER) (test code = 7.9 GM/DL 13.7-17.5 L 410) HEMATOCRIT (BEAKER) (test code = 24.8 % 40.1-51.0 L 411) CBC (HEMOGRAM ONLY)2017-10-19 05:51:00 Test Item Value Reference Range Interpretation Comments WHITE BLOOD CELL COUNT (BEAKER) 9.3 K/ L 3.5-10.5 (test code = 775) RED BLOOD CELL COUNT (BEAKER) 2.44 M/ L 4.63-6.08 L (test code = 761) HEMOGLOBIN (BEAKER) (test code = 6.6 GM/DL 13.7-17.5 L 410) HEMATOCRIT (BEAKER) (test code = 21.4 % 40.1-51.0 L 411) MEAN CORPUSCULAR VOLUME (BEAKER) 87.7 fL 79.0-92.2 (test code = 753) MEAN CORPUSCULAR HEMOGLOBIN 27.0 pg 25.7-32.2 (BEAKER) (test code = 751) MEAN CORPUSCULAR HEMOGLOBIN CONC 30.8 GM/DL 32.3-36.5 L (BEAKER) (test code = 752) RED CELL DISTRIBUTION WIDTH 14.9 % 11.6-14.4 H (BEAKER) (test code = 412) PLATELET COUNT (BEAKER) (test 198 K/CU MM 150-450 code = 756) MEAN PLATELET VOLUME (BEAKER) 10.5 fL 9.4-12.4 (test code = 754) NUCLEATED RED BLOOD CELLS 1 /100 WBC 0-0 H (BEAKER) (test code = 413) BASIC METABOLIC [id number] 05:35:00 Test Item Value Reference Range Interpretation Comments SODIUM (BEAKER) 136 meq/L 136-145 (test code = 381) POTASSIUM (BEAKER) 3.6 meq/L 3.5-5.1 (test code = 379) CHLORIDE (BEAKER) 99 meq/L 98-107 (test code = 382) CO2 (BEAKER) (test 27 meq/L 22-29 code = 355) BLOOD UREA NITROGEN 32 mg/dL 7-21 H (BEAKER) (test code = 354) CREATININE (BEAKER) 1.18 mg/dL 0.57-1.25 (test code = 358) GLUCOSE RANDOM 122 mg/dL 70-105 H (BEAKER) (test code = 652) CALCIUM (BEAKER) 7.9 mg/dL 8.4-10.2 L (test code = 697) EGFR (BEAKER) (test 62 mL/min/1.73 ESTIMA REYES GFR IS code = 1092) sq m NOT ACCURATE CREATININE CLEARANCE IN PREDICTING GLOMERULAR FILTRATION RATE . ESTIMATED GFR I S NOT APPLICABLE FOR DIALYSIS PATIEN TS. [id number] 05:33:00 Test Item Value Reference Range Interpretation Comments MAGNESIUM (BEAKER) (test code = 2.0 mg/dL 1.6-2.6 627) RAD, CHEST, 1 VIEW, NON [id number] 18:14:00Reason for exam:->s/p PPM implantShould this be performed at the bedside?->YesFINAL REPORT Chest, one view. HISTORY: Pacemaker COMPARISON: 10/18/2017 at 2:59 AM IMPRESSION: Interval placement of a dual-lead left subclavian pacemaker. No identifiable pneumothorax. Right IJ catheter unchanged in position. Unchanged enlargement of the cardiomediastinal silhouette. Unchanged moderate interstitial edema and patchy opacities bilaterally. Trace bilateral pleural effusions. Signed: Bao Mcdonnelleport Verified Date/Time: 10/18/2017 18:14:36 Reading Location:[facility] B1 C013W Consult Reading Room CALCIUM, [id number] 04:33:00 Test Item Value Reference Range Interpretation Comments CALCIUM IONIZED (BEAKER) (test 1.01 mmol/L 1.12-1.27 L code = 698) PH, BLOOD (BEAKER) (test code = 7.46 1810) CBC (HEMOGRAM ONLY)2017-10-18 04:10:00 Test Item Value Reference Range Interpretation Comments WHITE BLOOD CELL COUNT (BEAKER) 8.3 K/ L 3.5-10.5 (test code = 775) RED BLOOD CELL COUNT (BEAKER) 2.52 M/ L 4.63-6.08 L (test code = 761) HEMOGLOBIN (BEAKER) (test code = 7.0 GM/DL 13.7-17.5 L 410) HEMATOCRIT (BEAKER) (test code = 21.7 % 40.1-51.0 L 411) MEAN CORPUSCULAR VOLUME (BEAKER) 86.1 fL 79.0-92.2 (test code = 753) MEAN CORPUSCULAR HEMOGLOBIN 27.8 pg 25.7-32.2 (BEAKER) (test code = 751) MEAN CORPUSCULAR HEMOGLOBIN CONC 32.3 GM/DL 32.3-36.5 (BEAKER) (test code = 752) RED CELL DISTRIBUTION WIDTH 14.8 % 11.6-14.4 H (BEAKER) (test code = 412) PLATELET COUNT (BEAKER) (test 172 K/CU MM 150-450 code = 756) MEAN PLATELET VOLUME (BEAKER) 11.0 fL 9.4-12.4 (test code = 754) NUCLEATED RED BLOOD CELLS 2 /100 WBC 0-0 H (BEAKER) (test code = 413) RAD, CHEST, 1 VIEW, NON [id number] 03:52:00Reason for exam:->eval pulmonary congestionFINAL REPORT RAD, CHEST, 1 VIEW, NON DEPT INDICATION: eval pulmonary congestion COMPARISON: Prior day's exam FINDINGS: Portable frontal view of the chest. IMPRESSION: Support Lines: Right IJ central venous catheter is stable. Lungs and pleura: Interstitial coarsening suggestsedema or atypical infection. Persistent bilateral effusions. No pneumothorax.Heart and mediastinum: Stable contours. Stable surgical changes.Additional findings: None. Signed: JR Sabra, Héctor Jimenez Verified Date/Time: 10/18/2017 03:52:09 Reading Location: [facility] B1 C013Y CT Body Reading Room [id number] 03:50:00 Test Item Value Reference Range Interpretation Comments MAGNESIUM (BEAKER) (test code = 2.2 mg/dL 1.6-2.6 627) BASIC METABOLIC [id number] 03:50:00 Test Item Value Reference Range Interpretation Comments SODIUM (BEAKER) 135 meq/L 136-145 L (test code = 381) POTASSIUM (BEAKER) 3.7 meq/L 3.5-5.1 (test code = 379) CHLORIDE (BEAKER) 97 meq/L 98-107 L (test code = 382) CO2 (BEAKER) (test 27 meq/L 22-29 code = 355) BLOOD UREA NITROGEN 38 mg/dL 7-21 H (BEAKER) (test code = 354) CREATININE (BEAKER) 1.48 mg/dL 0.57-1.25 H (test code = 358) GLUCOSE RANDOM 139 mg/dL 70-105 H (BEAKER) (test code = 652) CALCIUM (BEAKER) 8.3 mg/dL 8.4-10.2 L (test code = 697) EGFR (BEAKER) (test 48 mL/min/1.73 ESTIMA REYES GFR IS code = 1092) sq m NOT ACCURATE CREATININE CLEARANCE IN PREDICTING GLOMERULAR FILTRATION RATE . ESTIMATED GFR I S NOT APPLICABLE FOR DIALYSIS PATIEN TS. [id number] 17:18:00 Test Item Value Reference Range Interpretation Comments POTASSIUM (BEAKER) (test code = 4.1 meq/L 3.5-5.1 379) Check Serum Potassium level 2 hours after oral potassium replacement completed or 30 min after intravenous potassium replacement.[id number] 17:18:00 Test Item Value Reference Range Interpretation Comments MAGNESIUM (BEAKER) (test code = 2.2 mg/dL 1.6-2.6 627) Check Serum Potassium level 2 hours after oral potassium replacement completed or 30 min after intravenous potassium replacement.CALCIUM, [id number] 16:53:00 Test Item Value Reference Range Interpretation Comments CALCIUM IONIZED (BEAKER) (test 1.03 mmol/L 1.12-1.27 L code = 698) PH, BLOOD (BEAKER) (test code = 7.45 1810) Check serum Ionized Calcium level after 4 hours after IV Calcium replacement. RAD, CHEST, 1 VIEW, NON [id number] 06:13:00Reason for exam:->eval pulmonary congestionFINAL REPORT Chest one view. Clinical history: Evaluate pulmonary congestion. Comparison: Chest radiograph 10/16/2017 Technique: A single frontal view of the chest was obtained.Findings: The cardiac silhouette is enlarged. There are median sternotomy wires. There is a right IJcentral venous catheter with tip in the SVC. Again seen are bilateral alveolar and interstitial opacities. There is mildly improved aeration in the right hemithorax. There is a small right pleural effusion. The left lateral costophrenic angle has been partially excluded. There is no pneumothorax. S igned: Dom Latif MDReport Verified Date/Time: 10/17/2017 06:13:55 Reading Location: [address] Transitional Reading Room ANAEROBIC [id number] 05:47:00 Test Item Value Reference Range Interpretation Comments CULTURE (BEAKER) (test No anaerobes isolated code = 1095) CALCIUM, [id number] 05:38:00 Test Item Value Reference Range Interpretation Comments CALCIUM IONIZED (BEAKER) (test 1.02 mmol/L 1.12-1.27 L code = 698) PH, BLOOD (BEAKER) (test code = 7.38 1810) CBC (HEMOGRAM ONLY)2017-10-17 05:11:00 Test Item Value Reference Range Interpretation Comments WHITE BLOOD CELL COUNT (BEAKER) 9.0 K/ L 3.5-10.5 (test code = 775) RED BLOOD CELL COUNT (BEAKER) 2.67 M/ L 4.63-6.08 L (test code = 761) HEMOGLOBIN (BEAKER) (test code = 7.4 GM/DL 13.7-17.5 L 410) HEMATOCRIT (BEAKER) (test code = 23.0 % 40.1-51.0 L 411) MEAN CORPUSCULAR VOLUME (BEAKER) 86.1 fL 79.0-92.2 (test code = 753) MEAN CORPUSCULAR HEMOGLOBIN 27.7 pg 25.7-32.2 (BEAKER) (test code = 751) MEAN CORPUSCULAR HEMOGLOBIN CONC 32.2 GM/DL 32.3-36.5 L (BEAKER) (test code = 752) RED CELL DISTRIBUTION WIDTH 14.6 % 11.6-14.4 H (BEAKER) (test code = 412) PLATELET COUNT (BEAKER) (test 151 K/CU MM 150-450 code = 756) MEAN PLATELET VOLUME (BEAKER) 11.4 fL 9.4-12.4 (test code = 754) NUCLEATED RED BLOOD CELLS 1 /100 WBC 0-0 H (BEAKER) (test code = 413) [id number] 05:00:00 Test Item Value Reference Range Interpretation Comments MAGNESIUM (BEAKER) (test code = 2.1 mg/dL 1.6-2.6 627) BASIC METABOLIC [id number] 05:00:00 Test Item Value Reference Range Interpretation Comments SODIUM (BEAKER) 136 meq/L 136-145 (test code = 381) POTASSIUM (BEAKER) 3.9 meq/L 3.5-5.1 (test code = 379) CHLORIDE (BEAKER) 97 meq/L 98-107 L (test code = 382) CO2 (BEAKER) (test 27 meq/L 22-29 code = 355) BLOOD UREA NITROGEN 32 mg/dL 7-21 H (BEAKER) (test code = 354) CREATININE (BEAKER) 1.37 mg/dL 0.57-1.25 H (test code = 358) GLUCOSE RANDOM 142 mg/dL 70-105 H (BEAKER) (test code = 652) CALCIUM (BEAKER) 8.3 mg/dL 8.4-10.2 L (test code = 697) EGFR (BEAKER) (test 52 mL/min/1.73 ESTIMA REYES GFR IS code = 1092) sq m NOT ACCURATE CREATININE CLEARANCE IN PREDICTING GLOMERULAR FILTRATION RATE . ESTIMATED GFR I S NOT APPLICABLE FOR DIALYSIS PATIEN TS. [id number] 21:28:00 Test Item Value Reference Range Interpretation Comments PHOSPHORUS (BEAKER) (test code = 3.7 mg/dL 2.3-4.7 604) [id number] 21:28:00 Test Item Value Reference Range Interpretation Comments MAGNESIUM (BEAKER) (test code = 1.8 mg/dL 1.6-2.6 627) BASIC METABOLIC [id number] 21:28:00 Test Item Value Reference Range Interpretation Comments SODIUM (BEAKER) 135 meq/L 136-145 L (test code = 381) POTASSIUM (BEAKER) 3.9 meq/L 3.5-5.1 (test code = 379) CHLORIDE (BEAKER) 98 meq/L 98-107 (test code = 382) CO2 (BEAKER) (test 25 meq/L 22-29 code = 355) BLOOD UREA NITROGEN 31 mg/dL 7-21 H (BEAKER) (test code = 354) CREATININE (BEAKER) 1.17 mg/dL 0.57-1.25 (test code = 358) GLUCOSE RANDOM 128 mg/dL 70-105 H (BEAKER) (test code = 652) CALCIUM (BEAKER) 8.3 mg/dL 8.4-10.2 L (test code = 697) EGFR (BEAKER) (test 62 mL/min/1.73 ESTIMA REYES GFR IS code = 1092) sq m NOT ACCURATE CREATININE CLEARANCE IN PREDICTING GLOMERULAR FILTRATION RATE . ESTIMATED GFR I S NOT APPLICABLE FOR DIALYSIS PATIEN TS. HEMOGLOBIN AND [id number] 21:11:00 Test Item Value Reference Range Interpretation Comments HEMOGLOBIN (BEAKER) (test code = 7.7 GM/DL 13.7-17.5 L 410) HEMATOCRIT (BEAKER) (test code = 22.8 % 40.1-51.0 L 411) CALCIUM, [id number] 21:07:00 Test Item Value Reference Range Interpretation Comments CALCIUM IONIZED (BEAKER) (test 1.01 mmol/L 1.12-1.27 L code = 698) PH, BLOOD (BEAKER) (test code = 7.46 1810) RAD, CHEST, 1 VIEW, NON [id number] 17:07:00Reason for exam:->Line PlacementShould this be performed at the bedside?->YesFINAL REPORT CHEST ONE VIEW HISTORY: Status post central line placement COMPAR NIALL: 10/16/2017 at 0620 hours FINDINGS: Single portable AP examination of the chest was performed. Interval placement of a right jugular catheter, with the tip in the SVC region. No pneumothorax is identified. There are diffuse bilateral pulmonary opacities, without appreciable change since the priorstudy, suggestive of pulmonary edema and/or pneumonitis. More confluent consolidation at the left lung base has nearly completely resolved, suggestive of resolving atelectasis. The cardiac shadow remains enlarged. Sternotomy wires are present. Signed: Flaco Workman Verified Date/Time: 10/16/2017 17:07:17 Reading Location: [address] Transitional Reading Room RAD, CHEST, 1 VIEW, NON [id number] 06:50:00Reason for exam:->eval pulmonary congestionFINAL REPORT Chest one view. Clinical history: eval pulmonary congestion Comp arison: Chest radiograph 10/14/2017 Technique: A single frontal view of the chest was obtained. Findings:The patient is status post median sternotomy. The cardiac silhouette is enlarged. The aorta is atherosclerotic. There are dense calcifications of the mitral valve annulus. There are diffuse bilateral alveolar opacities compatible with severe CHF/pulmonary edema, worsened in the interval. There are small bilateral pleural effusions. Superimposed pneumonia cannot be excluded. There is no pneumothorax. Signed: Dom Latifeport Verified Date/Time: 10/16/2017 06:50:42 Reading Location: [address] Transitional Reading Room CALCIUM, [id number] 05:43:00 Test Item Value Reference Range Interpretation Comments CALCIUM IONIZED (BEAKER) (test 1.04 mmol/L 1.12-1.27 L code = 698) PH, BLOOD (BEAKER) (test code = 7.44 1810) BASIC METABOLIC [id number] 04:43:00 Test Item Value Reference Range Interpretation Comments SODIUM (BEAKER) 134 meq/L 136-145 L (test code = 381) POTASSIUM (BEAKER) 3.6 meq/L 3.5-5.1 (test code = 379) CHLORIDE (BEAKER) 97 meq/L 98-107 L (test code = 382) CO2 (BEAKER) (test 27 meq/L 22-29 code = 355) BLOOD UREA NITROGEN 33 mg/dL 7-21 H (BEAKER) (test code = 354) CREATININE (BEAKER) 1.30 mg/dL 0.57-1.25 H (test code = 358) GLUCOSE RANDOM 119 mg/dL 70-105 H (BEAKER) (test code = 652) CALCIUM (BEAKER) 7.9 mg/dL 8.4-10.2 L (test code = 697) EGFR (BEAKER) (test 55 mL/min/1.73 ESTIMA REYES GFR IS code = 1092) sq m NOT ACCURATE CREATININE CLEARANCE IN PREDICTING GLOMERULAR FILTRATION RATE . ESTIMATED GFR I S NOT APPLICABLE FOR DIALYSIS PATILETTY TS. [id number] 04:39:00 Test Item Value Reference Range Interpretation Comments MAGNESIUM (BEAKER) (test code = 1.8 mg/dL 1.6-2.6 627) CBC (HEMOGRAM ONLY)2017-10-16 04:22:00 Test Item Value Reference Range Interpretation Comments WHITE BLOOD CELL COUNT (BEAKER) 8.9 K/ L 3.5-10.5 (test code = 775) RED BLOOD CELL COUNT (BEAKER) 2.67 M/ L 4.63-6.08 L (test code = 761) HEMOGLOBIN (BEAKER) (test code = 7.5 GM/DL 13.7-17.5 L 410) HEMATOCRIT (BEAKER) (test code = 22.9 % 40.1-51.0 L 411) MEAN CORPUSCULAR VOLUME (BEAKER) 85.8 fL 79.0-92.2 (test code = 753) MEAN CORPUSCULAR HEMOGLOBIN 28.1 pg 25.7-32.2 (BEAKER) (test code = 751) MEAN CORPUSCULAR HEMOGLOBIN CONC 32.8 GM/DL 32.3-36.5 (BEAKER) (test code = 752) RED CELL DISTRIBUTION WIDTH 14.6 % 11.6-14.4 H (BEAKER) (test code = 412) PLATELET COUNT (BEAKER) (test 119 K/CU MM 150-450 L code = 756) MEAN PLATELET VOLUME (BEAKER) 11.3 fL 9.4-12.4 (test code = 754) NUCLEATED RED BLOOD CELLS 1 /100 WBC 0-0 H (BEAKER) (test code = 413) HEMOGLOBIN AND [id number] 12:22:00 Test Item Value Reference Range Interpretation Comments HEMOGLOBIN (BEAKER) (test code = 7.7 GM/DL 13.7-17.5 L 410) HEMATOCRIT (BEAKER) (test code = 23.5 % 40.1-51.0 L 411) POCT-GLUCOSE [id number] 08:53:00 Test Item Value Reference Range Interpretation Comments POC-GLUCOSE METER 135 mg/dL 70-110 H TESTED AT [facility] [address] (BEAKER) (test code = [place] [address]) [address] [id number] 04:32:00 Test Item Value Reference Range Interpretation Comments MAGNESIUM (BEAKER) (test code = 1.9 mg/dL 1.6-2.6 627) BASIC METABOLIC [id number] 04:32:00 Test Item Value Reference Range Interpretation Comments SODIUM (BEAKER) 135 meq/L 136-145 L (test code = 381) POTASSIUM (BEAKER) 4.4 meq/L 3.5-5.1 (test code = 379) CHLORIDE (BEAKER) 103 meq/L 98-107 (test code = 382) CO2 (BEAKER) (test 25 meq/L 22-29 code = 355) BLOOD UREA NITROGEN 32 mg/dL 7-21 H (BEAKER) (test code = 354) CREATININE (BEAKER) 1.24 mg/dL 0.57-1.25 (test code = 358) GLUCOSE RANDOM 135 mg/dL 70-105 H (BEAKER) (test code = 652) CALCIUM (BEAKER) 8.1 mg/dL 8.4-10.2 L (test code = 697) EGFR (BEAKER) (test 58 mL/min/1.73 ESTIMA REYES GFR IS code = 1092) sq m NOT ACCURATE CREATININE CLEARANCE IN PREDICTING GLOMERULAR FILTRATION RATE . ESTIMATED GFR I S NOT APPLICABLE FOR DIALYSIS PATIEN TS. CBC W/PLT COUNT & AUTO [id number] 04:13:00 Test Item Value Reference Range Interpretation Comments WHITE BLOOD CELL COUNT (BEAKER) 8.5 K/ L 3.5-10.5 (test code = 775) RED BLOOD CELL COUNT (BEAKER) 2.63 M/ L 4.63-6.08 L (test code = 761) HEMOGLOBIN (BEAKER) (test code = 7.4 GM/DL 13.7-17.5 L 410) HEMATOCRIT (BEAKER) (test code = 22.5 % 40.1-51.0 L 411) MEAN CORPUSCULAR VOLUME (BEAKER) 85.6 fL 79.0-92.2 (test code = 753) MEAN CORPUSCULAR HEMOGLOBIN 28.1 pg 25.7-32.2 (BEAKER) (test code = 751) MEAN CORPUSCULAR HEMOGLOBIN CONC 32.9 GM/DL 32.3-36.5 (BEAKER) (test code = 752) RED CELL DISTRIBUTION WIDTH 14.9 % 11.6-14.4 H (BEAKER) (test code = 412) PLATELET COUNT (BEAKER) (test 107 K/CU MM 150-450 L code = 756) MEAN PLATELET VOLUME (BEAKER) 11.9 fL 9.4-12.4 (test code = 754) NUCLEATED RED BLOOD CELLS 0 /100 WBC 0-0 (BEAKER) (test code = 413) NEUTROPHILS RELATIVE PERCENT 82 % (BEAKER) (test code = 429) LYMPHOCYTES RELATIVE PERCENT 6 % (BEAKER) (test code = 430) MONOCYTES RELATIVE PERCENT 10 % (BEAKER) (test code = 431) EOSINOPHILS RELATIVE PERCENT 2 % (BEAKER) (test code = 432) BASOPHILS RELATIVE PERCENT 0 % (BEAKER) (test code = 437) NEUTROPHILS ABSOLUTE COUNT 6.94 K/ L 1.78-5.38 H (BEAKER) (test code = 670) LYMPHOCYTES ABSOLUTE COUNT 0.51 K/ L 1.32-3.57 L (BEAKER) (test code = 414) MONOCYTES ABSOLUTE COUNT (BEAKER) 0.84 K/ L 0.30-0.82 H (test code = 415) EOSINOPHILS ABSOLUTE COUNT 0.16 K/ L 0.04-0.54 (BEAKER) (test code = 416) BASOPHILS ABSOLUTE COUNT (BEAKER) 0.02 K/ L 0.01-0.08 (test code = 417) IMMATURE GRANULOCYTES-RELATIVE 0 % 0-1 PERCENT (BEAKER) (test code = 2801) RAD, CHEST, 1 VIEW, NON [id number] 19:51:00Reason for exam:->sobShould this be performed at the bedside?->YesFINAL REPORT Chest, 1 view, 10/14/2017 6:05 PM. History: Shortness of breath.Comparison: X- ray from earlier this morning. Discussion: The cardiomediastinal silhouette and pulmonary vasculature are prominent with hazy bilateral perihilar and patchy bibasilar opacities. There isminimal blunting of the left costophrenic sulcus. There is no visible pneumothorax. Median sternotomy wires are again noted. The soft tissues and osseous structures are intact. IMPRESSION: CHF with bibasilar atelectasis and small left pleural effusion without significant change. Signed: Preston Macario [facility] Verified Date/Time: 10/14/2017 19:51:09 Reading Location: [facility] [id number] Consult Reading Room SURGICALLY OBTAINED CULTURE + GRAM [id number] 11:46:00 Test Item Value Reference Range Interpretation Comments CULTURE (BEAKER) (test code No growth = 1095) GRAM STAIN RESULT (BEAKER) No WBCs (test code = 1123) GRAM STAIN RESULT (BEAKER) No organisms seen (test code = 56604) TROPONIN [id number] 09:49:00 Test Item Value Reference Range Interpretation Comments TROPONIN I (BEAKER) (test code = 1.94 ng/mL 0.00-0.03 397) Troponin I (TnI) levels must be interpreted in the context of the presenting symptoms and the clinical findings. Elevated TnI levels indicate myocardial damage, but are not specific for ischemic heart disease. Elevated TnI levels are seen in patients with other cardiac conditions (including myocarditis and congestive heart failure), and slight TnI elevations occur in patients with other conditions, including sepsis, renal failure, acidosis, acute neurological disease, and persistent tachyarrhythmia.CREATINE KINASE (CK), TOTAL AND MB 2017-10-14 09:36:00 Test Item Value Reference Range Interpretation Comments CREATINE KINASE TOTAL (BEAKER) 526 U/L 29-200 H (test code = 380) CREATINE KINASE-MB (BEAKER) (test 5.7 ng/mL 0.0-6.6 code = 750) CREATINE KINASE-MB INDEX (BEAKER) 1.1 % (test code = 395) CK-MB Reference Range:<6.7 Normal6.7-10.0 Borderline>10.0 AbnormalHEPATIC FUNCTION [id number] 09:35:00 Test Item Value Reference Range Interpretation Comments TOTAL PROTEIN (BEAKER) (test code = 5.3 gm/dL 6.0-8.3 L 770) ALBUMIN (BEAKER) (test code = 1145) 3.1 g/dL 3.5-5.0 L BILIRUBIN TOTAL (BEAKER) (test code 0.8 mg/dL 0.2-1.2 = 377) BILIRUBIN DIRECT (BEAKER) (test 0.3 mg/dL 0.1-0.5 code = 706) ALKALINE PHOSPHATASE (BEAKER) (test 49 U/L 40-150 code = 346) AST (SGOT) (BEAKER) (test code = 30 U/L 5-34 353) ALT (SGPT) (BEAKER) (test code = 22 U/L 6-55 347) BASIC METABOLIC [id number] 09:35:00 Test Item Value Reference Range Interpretation Comments SODIUM (BEAKER) 135 meq/L 136-145 L (test code = 381) POTASSIUM (BEAKER) 4.0 meq/L 3.5-5.1 (test code = 379) CHLORIDE (BEAKER) 103 meq/L 98-107 (test code = 382) CO2 (BEAKER) (test 23 meq/L 22-29 code = 355) BLOOD UREA NITROGEN 30 mg/dL 7-21 H (BEAKER) (test code = 354) CREATININE (BEAKER) 1.18 mg/dL 0.57-1.25 (test code = 358) GLUCOSE RANDOM 145 mg/dL 70-105 H (BEAKER) (test code = 652) CALCIUM (BEAKER) 8.3 mg/dL 8.4-10.2 L (test code = 697) EGFR (BEAKER) (test 62 mL/min/1.73 ESTIMA REYES GFR IS code = 1092) sq m NOT ACCURATE CREATININE CLEARANCE IN PREDICTING GLOMERULAR FILTRATION RATE . ESTIMATED GFR I S NOT APPLICABLE FOR DIALYSIS PATIEN TS. LACTIC ACID, ARTERIAL, WHOLE [id number] 09:30:00 Test Item Value Reference Range Interpretation Comments LACTATE BLOOD ARTERIAL (2) 1.0 mmol/L 0.5-2.2 (BEAKER) (test code = 2874) Effective 10/08/2015: Units/Reference Range ChangeNew: 0.5-2.2 mmol/L Previous: 5-20 mg/dLPT/[id number] 09:24:00 Test Item Value Reference Range Interpretation Comments PROTIME (BEAKER) (test code = 16.8 seconds 11.7-14.7 H 759) INR (BEAKER) (test code = 370) 1.4 <=5.9 PARTIAL THROMBOPLASTIN TIME 39.9 seconds 22.5-36.0 H (BEAKER) (test code = 760) RECOMMENDED COUMADIN/WARFARIN INR THERAPY RANGESSTANDARD DOSE: 2.0 - 3.0 Includes: PROPHYLAXIS forvenous thrombosis, systemic embolization; TREATMENT for venous thrombosis and/or pulmonary embolus.HIGH RISK: Target INR is 2.5-3.5 for patients with mechanical heart valves.BLOOD GAS, [id number] 09:02:00 Test Item Value Reference Range Interpretation Comments PH ARTERIAL (BEAKER) (test code = 7.40 7.35-7.45 383) PCO2 ARTERIAL (BEAKER) (test code 41 mmHg 35-45 = 384) PO2 ARTERIAL (BEAKER) (test code 138 mmHg 80-90 H = 385) O2 SATURATION ARTERIAL (BEAKER) 98.8 % 96.0-97.0 H (test code = 386) HCO3 ARTERIAL (BEAKER) (test code 25 mmol/L 21-29 = 388) BASE EXCESS ARTERIAL (BEAKER) -0.3 mmol/L -2.0-3.0 (test code = 387) PATIENT TEMPERATURE (BEAKER) 36.6 C (test code = 1818) FIO2 (BEAKER) (test code = 1819) 32.0 % RAD, CHEST, 1 VIEW, NON [id number] 07:09:00Reason for exam:->s/p AVRShould this be performed at the bedside?->YesFINAL REPORT Chest one view AP 10/14/2017 7:09 AM CLINICAL INDICATION: s/p AVR COMPARISON: 10/13/2017 IMPRESSION: Cardiomediastinal contours are stable. There is mild pulmonary edema. There is bibasilar atelectasis. There is a trace left pleural effusion. There is a tiny left apical pneumothorax. Sternotomy wires remain midline. Signed: Logan Servineport Verified Date/Time: 10/14/2017 07:09:30 Reading Location: [facility] Radiology Reading Room MAGNESIUM 2017-10-14 06:02:00 Test Item Value Reference Range Interpretation Comments MAGNESIUM (BEAKER) (test code = 2.0 mg/dL 1.6-2.6 627) BASIC METABOLIC [id number] 06:02:00 Test Item Value Reference Range Interpretation Comments SODIUM (BEAKER) 136 meq/L 136-145 (test code = 381) POTASSIUM (BEAKER) 4.1 meq/L 3.5-5.1 (test code = 379) CHLORIDE (BEAKER) 102 meq/L 98-107 (test code = 382) CO2 (BEAKER) (test 22 meq/L 22-29 code = 355) BLOOD UREA NITROGEN 31 mg/dL 7-21 H (BEAKER) (test code = 354) CREATININE (BEAKER) 1.37 mg/dL 0.57-1.25 H (test code = 358) GLUCOSE RANDOM 115 mg/dL 70-105 H (BEAKER) (test code = 652) CALCIUM (BEAKER) 8.7 mg/dL 8.4-10.2 (test code = 697) EGFR (BEAKER) (test 52 mL/min/1.73 ESTIMA REYES GFR IS code = 1092) sq m NOT ACCURATE CREATININE CLEARANCE IN PREDICTING GLOMERULAR FILTRATION RATE . ESTIMATED GFR I S NOT APPLICABLE FOR DIALYSIS PATIEN TS. CBC W/PLT COUNT & AUTO [id number] 05:54:00 Test Item Value Reference Range Interpretation Comments WHITE BLOOD CELL COUNT (BEAKER) 9.0 K/ L 3.5-10.5 (test code = 775) RED BLOOD CELL COUNT (BEAKER) 2.94 M/ L 4.63-6.08 L (test code = 761) HEMOGLOBIN (BEAKER) (test code = 8.3 GM/DL 13.7-17.5 L 410) HEMATOCRIT (BEAKER) (test code = 25.7 % 40.1-51.0 L 411) MEAN CORPUSCULAR VOLUME (BEAKER) 87.4 fL 79.0-92.2 (test code = 753) MEAN CORPUSCULAR HEMOGLOBIN 28.2 pg 25.7-32.2 (BEAKER) (test code = 751) MEAN CORPUSCULAR HEMOGLOBIN CONC 32.3 GM/DL 32.3-36.5 (BEAKER) (test code = 752) RED CELL DISTRIBUTION WIDTH 14.9 % 11.6-14.4 H (BEAKER) (test code = 412) PLATELET COUNT (BEAKER) (test code 89 K/CU MM 150-450 L = 756) MEAN PLATELET VOLUME (BEAKER) 11.8 fL 9.4-12.4 (test code = 754) NUCLEATED RED BLOOD CELLS (BEAKER) 0 /100 WBC 0-0 (test code = 413) NEUTROPHILS RELATIVE PERCENT 75 % (BEAKER) (test code = 429) LYMPHOCYTES RELATIVE PERCENT 14 % (BEAKER) (test code = 430) MONOCYTES RELATIVE PERCENT 8 % (BEAKER) (test code = 431) EOSINOPHILS RELATIVE PERCENT 3 % (BEAKER) (test code = 432) BASOPHILS RELATIVE PERCENT 0 % (BEAKER) (test code = 437) NEUTROPHILS ABSOLUTE COUNT 6.74 K/ L 1.78-5.38 H (BEAKER) (test code = 670) LYMPHOCYTES ABSOLUTE COUNT 1.27 K/ L 1.32-3.57 L (BEAKER) (test code = 414) MONOCYTES ABSOLUTE COUNT (BEAKER) 0.69 K/ L 0.30-0.82 (test code = 415) EOSINOPHILS ABSOLUTE COUNT 0.25 K/ L 0.04-0.54 (BEAKER) (test code = 416) BASOPHILS ABSOLUTE COUNT (BEAKER) 0.03 K/ L 0.01-0.08 (test code = 417) IMMATURE GRANULOCYTES-RELATIVE 0 % 0-1 PERCENT (BEAKER) (test code = 2801) POCT-GLUCOSE [id number] 23:27:00 Test Item Value Reference Range Interpretation Comments POC-GLUCOSE METER 164 mg/dL 70-110 H TESTED AT [place] [address] ([facility]) (test code = [place] [address]) [id number] POCT-GLUCOSE [id number] 17:21:00 Test Item Value Reference Range Interpretation Comments POC-GLUCOSE METER 154 mg/dL 70-110 H TESTED AT [place] [address] ([facility]) (test code = IDR[place] [facility] 1538) [id number] POCT-GLUCOSE [id number] 14:41:00 Test Item Value Reference Range Interpretation Comments POC-GLUCOSE METER 157 mg/dL 70-110 H TESTED AT [place] [address] ([facility]) (test code = IDRIS Gal[place] [facility] 1538) [id number] POCT-GLUCOSE [id number] 11:51:00 Test Item Value Reference Range Interpretation Comments POC-GLUCOSE METER 155 mg/dL 70-110 H TESTED AT [place] [address] ([facility]) (test code = IDRIS Gal[place] [facility] 1538) [id number] RAD, CHEST, 1 VIEW, NON [id number] 10:20:00Reason for exam:->s/p AVR, pleural effusionShould this be performed at the bedside?->YesFINAL REPORT Chest 2 views AP 10/13/2017 10:20 AM CLINICAL INDICATION: s/p AVR, pleural effusion COMPARISON: 10/12/2017 IMPRESSION: Remaining support hardware is unchanged in position. Cardiomediastinal contours are stable. There is mild/moderate pulmonary edema with bibasilar atelectasis. No pneumothorax is evident. Signed: Logan Servin Verified Date/Time: 10/13/2017 10:20:39 Reading Location: [facility] Radiology Reading Room POCT- GLUCOSE [id number] 07:46:00 Test Item Value Reference Range Interpretation Comments POC-GLUCOSE METER 151 mg/dL 70-110 H TESTED AT [place] [address] ([facility]) (test code = IDRIS Gal[place] [facility] 1538) [id number] BASIC METABOLIC [id number] 05:31:00 Test Item Value Reference Range Interpretation Comments SODIUM (BEAKER) 138 meq/L 136-145 (test code = 381) POTASSIUM (BEAKER) 4.4 meq/L 3.5-5.1 Specimen slightly (test code = 379) hemolyzed CHLORIDE (BEAKER) 108 meq/L 98-107 H (test code = 382) CO2 (BEAKER) (test 20 meq/L 22-29 L code = 355) BLOOD UREA NITROGEN 28 mg/dL 7-21 H (BEAKER) (test code = 354) CREATININE (BEAKER) 1.48 mg/dL 0.57-1.25 H Specimen slightly (test code = 358) hemolyzed GLUCOSE RANDOM 136 mg/dL 70-105 H (BEAKER) (test code = 652) CALCIUM (BEAKER) 8.4 mg/dL 8.4-10.2 (test code = 697) EGFR (BEAKER) (test 48 mL/min/1.73 ESTIMA REYES GFR IS code = 1092) sq m NOT ACCURATE CREATININE CLEARANCE IN PREDICTING GLOMERULAR FILTRATION RATE . ESTIMATED GFR I S NOT APPLICABLE FOR DIALYSIS PATIEN TS. [id number] 05:30:00 Test Item Value Reference Range Interpretation Comments MAGNESIUM (BEAKER) 2.2 mg/dL 1.6-2.6 Specimen slightly (test code = 627) hemolyzed CBC W/PLT COUNT & AUTO [id number] 17:33:00 Test Item Value Reference Range Interpretation Comments WHITE BLOOD CELL COUNT (BEAKER) 10.0 K/ L 3.5-10.5 (test code = 775) RED BLOOD CELL COUNT (BEAKER) 3.16 M/ L 4.63-6.08 L (test code = 761) HEMOGLOBIN (BEAKER) (test code = 9.0 GM/DL 13.7-17.5 L 410) HEMATOCRIT (BEAKER) (test code = 27.2 % 40.1-51.0 L 411) MEAN CORPUSCULAR VOLUME (BEAKER) 86.1 fL 79.0-92.2 (test code = 753) MEAN CORPUSCULAR HEMOGLOBIN 28.5 pg 25.7-32.2 (BEAKER) (test code = 751) MEAN CORPUSCULAR HEMOGLOBIN CONC 33.1 GM/DL 32.3-36.5 (BEAKER) (test code = 752) RED CELL DISTRIBUTION WIDTH 15.0 % 11.6-14.4 H (BEAKER) (test code = 412) PLATELET COUNT (BEAKER) (test code 83 K/CU MM 150-450 L = 756) MEAN PLATELET VOLUME (BEAKER) 10.5 fL 9.4-12.4 (test code = 754) NUCLEATED RED BLOOD CELLS (BEAKER) 0 /100 WBC 0-0 (test code = 413) NEUTROPHILS RELATIVE PERCENT 80 % (BEAKER) (test code = 429) LYMPHOCYTES RELATIVE PERCENT 9 % (BEAKER) (test code = 430) MONOCYTES RELATIVE PERCENT 11 % (BEAKER) (test code = 431) EOSINOPHILS RELATIVE PERCENT 0 % (BEAKER) (test code = 432) BASOPHILS RELATIVE PERCENT 0 % (BEAKER) (test code = 437) NEUTROPHILS ABSOLUTE COUNT 7.92 K/ L 1.78-5.38 H (BEAKER) (test code = 670) LYMPHOCYTES ABSOLUTE COUNT 0.89 K/ L 1.32-3.57 L (BEAKER) (test code = 414) MONOCYTES ABSOLUTE COUNT (BEAKER) 1.05 K/ L 0.30-0.82 H (test code = 415) EOSINOPHILS ABSOLUTE COUNT 0.04 K/ L 0.04-0.54 (BEAKER) (test code = 416) BASOPHILS ABSOLUTE COUNT (BEAKER) 0.02 K/ L 0.01-0.08 (test code = 417) IMMATURE GRANULOCYTES-RELATIVE 1 % 0-1 PERCENT (BEAKER) (test code = 2801) POCT-GLUCOSE [id number] 15:53:00 Test Item Value Reference Range Interpretation Comments POC-GLUCOSE METER 181 mg/dL 70-110 H TESTED AT [facility] 6720 (BEAKER) (test code = JENNIFERFAMILIA OLIVAREZ 1538) [address] CBC (HEMOGRAM ONLY)2017-10-12 11:48:00 Test Item Value Reference Range Interpretation Comments WHITE BLOOD CELL COUNT (BEAKER) 10.5 K/ L 3.5-10.5 (test code = 775) RED BLOOD CELL COUNT (BEAKER) 3.14 M/ L 4.63-6.08 L (test code = 761) HEMOGLOBIN (BEAKER) (test code = 9.0 GM/DL 13.7-17.5 L 410) HEMATOCRIT (BEAKER) (test code = 27.2 % 40.1-51.0 L 411) MEAN CORPUSCULAR VOLUME (BEAKER) 86.6 fL 79.0-92.2 (test code = 753) MEAN CORPUSCULAR HEMOGLOBIN 28.7 pg 25.7-32.2 (BEAKER) (test code = 751) MEAN CORPUSCULAR HEMOGLOBIN CONC 33.1 GM/DL 32.3-36.5 (BEAKER) (test code = 752) RED CELL DISTRIBUTION WIDTH 15.3 % 11.6-14.4 H (BEAKER) (test code = 412) PLATELET COUNT (BEAKER) (test code 88 K/CU MM 150-450 L = 756) MEAN PLATELET VOLUME (BEAKER) 11.4 fL 9.4-12.4 (test code = 754) NUCLEATED RED BLOOD CELLS (BEAKER) 0 /100 WBC 0-0 (test code = 413) BLOOD GAS, [id number] 07:51:00 Test Item Value Reference Range Interpretation Comments PH ARTERIAL (BEAKER) (test code = 7.38 7.35-7.45 383) PCO2 ARTERIAL (BEAKER) (test code 42 mmHg 35-45 = 384) PO2 ARTERIAL (BEAKER) (test code 139 mmHg 80-90 H = 385) O2 SATURATION ARTERIAL (BEAKER) 98.7 % 96.0-97.0 H (test code = 386) HCO3 ARTERIAL (BEAKER) (test code 24 mmol/L 21-29 = 388) BASE EXCESS ARTERIAL (BEAKER) -0.8 mmol/L -2.0-3.0 (test code = 387) PATIENT TEMPERATURE (BEAKER) 37.0 C (test code = 1818) POCT-GLUCOSE [id number] 06:34:00 Test Item Value Reference Range Interpretation Comments POC-GLUCOSE METER 126 mg/dL 70-110 H TESTED AT [facility] 6720 (BEAKER) (test code = [place] 1538) [address] RAD, CHEST, 1 VIEW, NON [id number] 03:51:00while patient is intubated or has chest tubes.Reason for exam:->S/P AVRShould this be performed at the bedside?->YesFINAL REPORT EXAMINATION: AP PORTABLE CHEST RADIOGRAPH CLINICAL INDICATION: Aortic valve replacement IMPRESSION: Compared with 10/11/2017 The endotracheal and nasogastric tubes have been removed. Support tube and catheter positions are otherwise unchanged. The cardiac silhouette is enlarged as before. Reticular opacities are again noted throughout both lungs. Although a componentmay reflect scarring and/or atelectasis, superimposed pulmonary edema should also be considered. Themore confluent consolidation along the heart borders may reflect passive atelectasis. An underlying pneumonia should also be considered. The left-sided pleural effusion is slightly larger on today study. Subtle radiolucency is again noted at the left costophrenic sulcus which may reflect a deep sulcussign-pneumothorax, stable or smaller. In summary, recommend clinical correlation regarding mild fluid overload-heart failure. Possible left basilar small pneumothorax. Short- term imaging surveillance recommended. Signed: Cristi Keene MDReport Verified Date/Time: 10/12/2017 03:51:38 Reading Location: [address] Reading Room BASIC METABOLIC [id number] 03:35:00 Test Item Value Reference Range Interpretation Comments SODIUM (BEAKER) 146 meq/L 136-145 H (test code = 381) POTASSIUM (BEAKER) 4.8 meq/L 3.5-5.1 (test code = 379) CHLORIDE (BEAKER) 116 meq/L 98-107 H (test code = 382) CO2 (BEAKER) (test 17 meq/L 22-29 L code = 355) BLOOD UREA NITROGEN 27 mg/dL 7-21 H (BEAKER) (test code = 354) CREATININE (BEAKER) 1.88 mg/dL 0.57-1.25 H (test code = 358) GLUCOSE RANDOM 202 mg/dL 70-105 H (BEAKER) (test code = 652) CALCIUM (BEAKER) 8.2 mg/dL 8.4-10.2 L (test code = 697) EGFR (BEAKER) (test 36 mL/min/1.73 ESTIMA REYES GFR IS code = 1092) sq m NOT ACCURATE CREATININE CLEARANCE IN PREDICTING GLOMERULAR FILTRATION RATE . ESTIMATED GFR I S NOT APPLICABLE FOR DIALYSIS PATIEN TS. [id number] 03:35:00 Test Item Value Reference Range Interpretation Comments PHOSPHORUS (BEAKER) (test code = 4.9 mg/dL 2.3-4.7 H 604) [id number] 03:35:00 Test Item Value Reference Range Interpretation Comments MAGNESIUM (BEAKER) (test code = 2.2 mg/dL 1.6-2.6 627) GLUCOSE-STAT [id number] 03:30:00 Test Item Value Reference Range Interpretation Comments GLUCOSE RANDOM (BEAKER) (test code 192 mg/dL 70-110 H = 652) Post extubation ABGBLOOD GAS, [id number] 03:29:00 Test Item Value Reference Range Interpretation Comments PH ARTERIAL (BEAKER) (test code = 7.32 7.35-7.45 L 383) PCO2 ARTERIAL (BEAKER) (test code 37 mmHg 35-45 = 384) PO2 ARTERIAL (BEAKER) (test code 112 mmHg 80-90 H = 385) O2 SATURATION ARTERIAL (BEAKER) 97.8 % 96.0-97.0 H (test code = 386) HCO3 ARTERIAL (BEAKER) (test code 19 mmol/L 21-29 L = 388) BASE EXCESS ARTERIAL (BEAKER) -7.0 mmol/L -2.0-3.0 L (test code = 387) PATIENT TEMPERATURE (BEAKER) 36.8 C (test code = 1818) FIO2 (BEAKER) (test code = 1819) 36.0 % Post extubation ABGCBC W/PLT COUNT & AUTO [id number] 03:27:00 Test Item Value Reference Range Interpretation Comments WHITE BLOOD CELL COUNT (BEAKER) 10.2 K/ L 3.5-10.5 (test code = 775) RED BLOOD CELL COUNT (BEAKER) 2.88 M/ L 4.63-6.08 L (test code = 761) HEMOGLOBIN (BEAKER) (test code = 8.0 GM/DL 13.7-17.5 L 410) HEMATOCRIT (BEAKER) (test code = 25.3 % 40.1-51.0 L 411) MEAN CORPUSCULAR VOLUME (BEAKER) 87.8 fL 79.0-92.2 (test code = 753) MEAN CORPUSCULAR HEMOGLOBIN 27.8 pg 25.7-32.2 (BEAKER) (test code = 751) MEAN CORPUSCULAR HEMOGLOBIN CONC 31.6 GM/DL 32.3-36.5 L (BEAKER) (test code = 752) RED CELL DISTRIBUTION WIDTH 15.1 % 11.6-14.4 H (BEAKER) (test code = 412) PLATELET COUNT (BEAKER) (test 117 K/CU MM 150-450 L code = 756) MEAN PLATELET VOLUME (BEAKER) 11.2 fL 9.4-12.4 (test code = 754) NUCLEATED RED BLOOD CELLS 0 /100 WBC 0-0 (BEAKER) (test code = 413) NEUTROPHILS RELATIVE PERCENT 80 % (BEAKER) (test code = 429) LYMPHOCYTES RELATIVE PERCENT 7 % (BEAKER) (test code = 430) MONOCYTES RELATIVE PERCENT 13 % (BEAKER) (test code = 431) EOSINOPHILS RELATIVE PERCENT 0 % (BEAKER) (test code = 432) BASOPHILS RELATIVE PERCENT 0 % (BEAKER) (test code = 437) NEUTROPHILS ABSOLUTE COUNT 8.13 K/ L 1.78-5.38 H (BEAKER) (test code = 670) LYMPHOCYTES ABSOLUTE COUNT 0.71 K/ L 1.32-3.57 L (BEAKER) (test code = 414) MONOCYTES ABSOLUTE COUNT (BEAKER) 1.27 K/ L 0.30-0.82 H (test code = 415) EOSINOPHILS ABSOLUTE COUNT 0.01 K/ L 0.04-0.54 L (BEAKER) (test code = 416) BASOPHILS ABSOLUTE COUNT (BEAKER) 0.02 K/ L 0.01-0.08 (test code = 417) IMMATURE GRANULOCYTES-RELATIVE 0 % 0-1 PERCENT (BEAKER) (test code = 2801) BLOOD GAS, [id number] 02:09:00 Test Item Value Reference Range Interpretation Comments PH ARTERIAL (BEAKER) (test code = 7.34 7.35-7.45 L 383) PCO2 ARTERIAL (BEAKER) (test code 36 mmHg 35-45 = 384) PO2 ARTERIAL (BEAKER) (test code 155 mmHg 80-90 H = 385) O2 SATURATION ARTERIAL (BEAKER) 98.9 % 96.0-97.0 H (test code = 386) HCO3 ARTERIAL (BEAKER) (test code 19 mmol/L 21-29 L = 388) BASE EXCESS ARTERIAL (BEAKER) -6.2 mmol/L -2.0-3.0 L (test code = 387) PATIENT TEMPERATURE (BEAKER) 36.8 C (test code = 1818) FIO2 (BEAKER) (test code = 1819) 40.0 % [id number] 00:42:00 Test Item Value Reference Range Interpretation Comments MAGNESIUM (BEAKER) (test code = 2.3 mg/dL 1.6-2.6 627) LACTIC ACID, ARTERIAL, WHOLE [id number] 00:37:00 Test Item Value Reference Range Interpretation Comments LACTATE BLOOD ARTERIAL (2) 7.5 mmol/L 0.5-2.2 H (BEAKER) (test code = 2874) Effective 10/08/2015: Units/Reference Range ChangeNew: 0.5-2.2 mmol/L Previous: 5-20 mg/dLSODIUM NA-STAT [id number] 00:30:00 Test Item Value Reference Range Interpretation Comments SODIUM (BEAKER) (test code = 381) 142 meq/L 135-148 POTASSIUM-STAT [id number] 00:30:00 Test Item Value Reference Range Interpretation Comments POTASSIUM (BEAKER) (test code = 4.2 meq/L 3.6-5.5 379) CALCIUM, [id number] 00:30:00 Test Item Value Reference Range Interpretation Comments CALCIUM IONIZED (BEAKER) (test 1.12 mmol/L 1.12-1.27 code = 698) PH, BLOOD (BEAKER) (test code = 7.34 1810) BLOOD GAS, [id number] 00:30:00 Test Item Value Reference Range Interpretation Comments PH ARTERIAL (BEAKER) (test code = 7.35 7.35-7.45 383) PCO2 ARTERIAL (BEAKER) (test code 35 mmHg 35-45 = 384) PO2 ARTERIAL (BEAKER) (test code 137 mmHg 80-90 H = 385) O2 SATURATION ARTERIAL (BEAKER) 98.6 % 96.0-97.0 H (test code = 386) HCO3 ARTERIAL (BEAKER) (test code 19 mmol/L 21-29 L = 388) BASE EXCESS ARTERIAL (BEAKER) -6.0 mmol/L -2.0-3.0 L (test code = 387) PATIENT TEMPERATURE (BEAKER) 36.7 C (test code = 1818) FIO2 (BEAKER) (test code = 1819) 40.0 % GLUCOSE-STAT [id number] 00:30:00 Test Item Value Reference Range Interpretation Comments GLUCOSE RANDOM (BEAKER) (test code 181 mg/dL 70-110 H = 652) HGB/HCT (H&H) - STAT [id number] 00:30:00 Test Item Value Reference Range Interpretation Comments HEMOGLOBIN (BEAKER) (test code = 8.2 g/dL 13.0-16.8 L 410) HEMATOCRIT (BEAKER) (test code = 24.0 % 40.0-50.0 L 411) LACTIC ACID, ARTERIAL, WHOLE [id number] 21:47:00 Test Item Value Reference Range Interpretation Comments LACTATE BLOOD ARTERIAL (2) 8.9 mmol/L 0.5-2.2 H (BEAKER) (test code = 2874) Effective 10/08/2015: Units/Reference Range ChangeNew: 0.5-2.2 mmol/L Previous: 5-20 mg/dLBLOOD GAS, [id number] 21:26:00 Test Item Value Reference Range Interpretation Comments PH ARTERIAL (BEAKER) (test code = 7.31 7.35-7.45 L 383) PCO2 ARTERIAL (BEAKER) (test code 39 mmHg 35-45 = 384) PO2 ARTERIAL (BEAKER) (test code 141 mmHg 80-90 H = 385) O2 SATURATION ARTERIAL (BEAKER) 98.6 % 96.0-97.0 H (test code = 386) HCO3 ARTERIAL (BEAKER) (test code 19 mmol/L 21-29 L = 388) BASE EXCESS ARTERIAL (BEAKER) -6.6 mmol/L -2.0-3.0 L (test code = 387) PATIENT TEMPERATURE (BEAKER) 36.7 C (test code = 1818) FIO2 (BEAKER) (test code = 1819) 40.0 % LACTIC ACID, ARTERIAL, WHOLE [id number] 19:29:00 Test Item Value Reference Range Interpretation Comments LACTATE BLOOD ARTERIAL (2) 7.1 mmol/L 0.5-2.2 H (BEAKER) (test code = 2874) Effective 10/08/2015: Units/Reference Range ChangeNew: 0.5-2.2 mmol/L Previous: 5-20 mg/dLSODIUM NA-STAT [id number] 19:16:00 Test Item Value Reference Range Interpretation Comments SODIUM (BEAKER) (test code = 381) 141 meq/L 135-148 POTASSIUM-STAT [id number] 19:16:00 Test Item Value Reference Range Interpretation Comments POTASSIUM (BEAKER) (test code = 3.8 meq/L 3.6-5.5 379) BLOOD GAS, [id number] 19:16:00 Test Item Value Reference Range Interpretation Comments PH ARTERIAL (BEAKER) (test code = 7.27 7.35-7.45 L 383) PCO2 ARTERIAL (BEAKER) (test code 43 mmHg 35-45 = 384) PO2 ARTERIAL (BEAKER) (test code 125 mmHg 80-90 H = 385) O2 SATURATION ARTERIAL (BEAKER) 98.0 % 96.0-97.0 H (test code = 386) HCO3 ARTERIAL (BEAKER) (test code 19 mmol/L 21-29 L = 388) BASE EXCESS ARTERIAL (BEAKER) -7.3 mmol/L -2.0-3.0 L (test code = 387) PATIENT TEMPERATURE (BEAKER) 36.8 C (test code = 1818) FIO2 (BEAKER) (test code = 1819) 40.0 % GLUCOSE-STAT [id number] 19:16:00 Test Item Value Reference Range Interpretation Comments GLUCOSE RANDOM (BEAKER) (test code 162 mg/dL 70-110 H = 652) HGB/HCT (H&H) - STAT [id number] 19:16:00 Test Item Value Reference Range Interpretation Comments HEMOGLOBIN (BEAKER) (test code = 10.1 g/dL 13.0-16.8 L 410) HEMATOCRIT (BEAKER) (test code = 30.0 % 40.0-50.0 L 411) POCT-GLUCOSE [id number] 18:52:00 Test Item Value Reference Range Interpretation Comments POC-GLUCOSE METER 166 mg/dL 70-110 H TESTED AT [facility] 6720 (BEAKER) (test code = [place] 1538) [address] POCT-GLUCOSE [id number] 18:05:00 Test Item Value Reference Range Interpretation Comments POC-GLUCOSE METER 168 mg/dL 70-110 H TESTED AT [facility] 67[address] (BEAKER) (test code = [place] 1538) [id number] [id number] 16:55:00 Test Item Value Reference Range Interpretation Comments MAGNESIUM (BEAKER) 3.1 mg/dL 1.6-2.6 H Specimen slightly (test code = 627) hemolyzed [id number] 16:55:00 Test Item Value Reference Range Interpretation Comments PHOSPHORUS (BEAKER) 4.4 mg/dL 2.3-4.7 Specimen slightly (test code = 604) hemolyzed BASIC METABOLIC [id number] 16:55:00 Test Item Value Reference Range Interpretation Comments SODIUM (BEAKER) 145 meq/L 136-145 (test code = 381) POTASSIUM (BEAKER) 4.8 meq/L 3.5-5.1 Specimen slightly (test code = 379) hemolyzed CHLORIDE (BEAKER) 114 meq/L 98-107 H (test code = 382) CO2 (BEAKER) (test 20 meq/L 22-29 L code = 355) BLOOD UREA NITROGEN 24 mg/dL 7-21 H (BEAKER) (test code = 354) CREATININE (BEAKER) 1.15 mg/dL 0.57-1.25 Specimen slightly (test code = 358) hemolyzed GLUCOSE RANDOM 158 mg/dL 70-105 H (BEAKER) (test code = 652) CALCIUM (BEAKER) 9.2 mg/dL 8.4-10.2 (test code = 697) EGFR (BEAKER) (test 64 mL/min/1.73 ESTIMA REYES GFR IS code = 1092) sq m NOT ACCURATE CREATININE CLEARANCE IN PREDICTING GLOMERULAR FILTRATION RATE . ESTIMATED GFR I S NOT APPLICABLE FOR DIALYSIS PATIEN TS. LACTIC ACID, ARTERIAL, WHOLE [id number] 16:53:00 Test Item Value Reference Range Interpretation Comments LACTATE BLOOD 4.8 mmol/L 0.5-2.2 H Specimen sligh tly ARTERIAL (2) (BEAKER) hemoly zed (test code = 2874) Effective 10/08/2015: Units/Reference Range ChangeNew: 0.5-2.2 mmol/L Previous: 5-20 mg/dLPROTHROMBIN [id number] 16:44:00 Test Item Value Reference Range Interpretation Comments PROTIME (BEAKER) (test code = 16.6 seconds 11.7-14.7 H 759) INR (BEAKER) (test code = 370) 1.3 <=5.9 RECOMMENDED COUMADIN/WARFARIN INR THERAPY RANGESSTANDARD DOSE: 2.0 - 3.0 Includes: PROPHYLAXIS forvenous thrombosis, systemic embolization; TREATMENT for venous thrombosis and/or pulmonary embolus.HIGH RISK: Target INR is 2.5-3.5 for patients with mechanical heart valves.CBC W/PLT COUNT & AUTO DIFFERENTIAL [id number] 16:42:00 Test Item Value Reference Range Interpretation Comments WHITE BLOOD CELL COUNT (BEAKER) 21.0 K/ L 3.5-10.5 H (test code = 775) RED BLOOD CELL COUNT (BEAKER) 3.82 M/ L 4.63-6.08 L (test code = 761) HEMOGLOBIN (BEAKER) (test code = 10.6 GM/DL 13.7-17.5 L 410) HEMATOCRIT (BEAKER) (test code = 33.3 % 40.1-51.0 L 411) MEAN CORPUSCULAR VOLUME (BEAKER) 87.2 fL 79.0-92.2 (test code = 753) MEAN CORPUSCULAR HEMOGLOBIN 27.7 pg 25.7-32.2 (BEAKER) (test code = 751) MEAN CORPUSCULAR HEMOGLOBIN CONC 31.8 GM/DL 32.3-36.5 L (BEAKER) (test code = 752) RED CELL DISTRIBUTION WIDTH 14.6 % 11.6-14.4 H (BEAKER) (test code = 412) PLATELET COUNT (BEAKER) (test 165 K/CU MM 150-450 code = 756) MEAN PLATELET VOLUME (BEAKER) 11.0 fL 9.4-12.4 (test code = 754) NUCLEATED RED BLOOD CELLS 0 /100 WBC 0-0 (BEAKER) (test code = 413) NEUTROPHILS RELATIVE PERCENT 79 % (BEAKER) (test code = 429) LYMPHOCYTES RELATIVE PERCENT 13 % (BEAKER) (test code = 430) MONOCYTES RELATIVE PERCENT 6 % (BEAKER) (test code = 431) EOSINOPHILS RELATIVE PERCENT 1 % (BEAKER) (test code = 432) BASOPHILS RELATIVE PERCENT 0 % (BEAKER) (test code = 437) NEUTROPHILS ABSOLUTE COUNT 16.59 K/ L 1.78-5.38 H (BEAKER) (test code = 670) LYMPHOCYTES ABSOLUTE COUNT 2.69 K/ L 1.32-3.57 (BEAKER) (test code = 414) MONOCYTES ABSOLUTE COUNT (BEAKER) 1.29 K/ L 0.30-0.82 H (test code = 415) EOSINOPHILS ABSOLUTE COUNT 0.13 K/ L 0.04-0.54 (BEAKER) (test code = 416) BASOPHILS ABSOLUTE COUNT (BEAKER) 0.05 K/ L 0.01-0.08 (test code = 417) IMMATURE GRANULOCYTES-RELATIVE 1 % 0-1 PERCENT (BEAKER) (test code = 2801) RAD, CHEST, 1 VIEW, NON [id number] 14:55:00Reason for exam:->immediate post cardiothoracic surgery/intubationShould this be performed at the bedside?->YesFINAL REPORT Chest one view AP 10/11/2017 2:54 PM CLINICAL INDICATION: immediate post cardiothoracic surgery/intubation COMPARISON: 09/28/2017 IMPRESSION: The side port of an enteric tube projects above the level of the gastroesophageal junction and should be advanced. Remaining support hardware is in satisfactory radiographic position. Cardiomediastinal contours are stable. The central pulmonary vasculature is not engorged. The lungs are well aerated. No pneumothorax is evident.Signed: Logan Servin Verified Date/Time: 10/11/2017 14:55:01 Reading Location: [address] Consult Reading Room OXYGEN SATURATION, [id number] 14:46:00 Test Item Value Reference Range Interpretation Comments O2 SATURATION (MEASURED) (BEAKER) 85.1 % (test code = 1455) CALCIUM, [id number] 14:45:00 Test Item Value Reference Range Interpretation Comments CALCIUM IONIZED (BEAKER) (test 1.23 mmol/L 1.12-1.27 code = 698) PH, BLOOD (BEAKER) (test code = 7.27 1810) POTASSIUM-STAT [id number] 14:44:00 Test Item Value Reference Range Interpretation Comments POTASSIUM (BEAKER) (test code = 4.7 meq/L 3.6-5.5 379) BLOOD GAS, [id number] 14:44:00 Test Item Value Reference Range Interpretation Comments PH ARTERIAL (BEAKER) (test code = 7.27 7.35-7.45 L 383) PCO2 ARTERIAL (BEAKER) (test code 54 mmHg 35-45 H = 384) PO2 ARTERIAL (BEAKER) (test code 209 mmHg 80-90 H = 385) O2 SATURATION ARTERIAL (BEAKER) 99.2 % 96.0-97.0 H (test code = 386) HCO3 ARTERIAL (BEAKER) (test code 24 mmol/L 21-29 = 388) BASE EXCESS ARTERIAL (BEAKER) -3.3 mmol/L -2.0-3.0 L (test code = 387) PATIENT TEMPERATURE (BEAKER) 37.3 C (test code = 1818) FIO2 (BEAKER) (test code = 1819) 60.0 % SODIUM NA-STAT [id number] 14:44:00 Test Item Value Reference Range Interpretation Comments SODIUM (BEAKER) (test code = 381) 142 meq/L 135-148 GLUCOSE-STAT [id number] 14:44:00 Test Item Value Reference Range Interpretation Comments GLUCOSE RANDOM (BEAKER) (test code 159 mg/dL 70-110 H = 652) HGB/HCT (H&H) - STAT [id number] 14:44:00 Test Item Value Reference Range Interpretation Comments HEMOGLOBIN (BEAKER) (test code = 11.5 g/dL 13.0-16.8 L 410) HEMATOCRIT (BEAKER) (test code = 34.0 % 40.0-50.0 L 411) THROMBOELASTOGRAPH (TEG)[id number] 14:28:00 Test Item Value Reference Range Interpretation Comments TEG ACTIVATED CLOTTING TIME 11.2 minutes 4.0-7.0 H (BEAKER) (test code = 1407) TEG FIBRINOGEN ACTIVITY (BEAKER) 62.8 degrees 61.0-73.0 (test code = 1408) TEG PLT. AGGREGATION (BEAKER) 43.4 MM 55.0-65.0 L (test code = 1409) TEG FIBRINOLYSIS (BEAKER) (test 0.2 % 0.0-5.0 code = 1410) TGH ACTIVATED CLOTTING TIME 11.2 minutes 4.0-7.0 H ([facility]) (test code = 1411) TGH FIBRINOGEN ACTIVITY ([facility]) 64.6 degrees 61.0-73.0 (test code = 1412) TGH PLT. AGGREGATION ([facility]) 47.5 MM 55.0-65.0 L (test code = 1413) TGH FIBRINOLYSIS ([facility]) (test 0.0 % 0.0-5.0 code = 1414) [id number] 13:28:00 Test Item Value Reference Range Interpretation Comments ACTIVATED CLOTTING TIME 103 sec TEST ED AT [place] [address] ([facility]) (test code = [place] [address]) [address] [id number] 13:28:00 Test Item Value Reference Range Interpretation Comments ACTIVATED CLOTTING TIME 516 sec TEST ED AT [place] [address] ([facility]) (test code = [place] [address]) [address] [id number] 13:28:00 Test Item Value Reference Range Interpretation Comments ACTIVATED CLOTTING TIME 351 sec TEST ED AT [place] [address] ([facility]) (test code = [place] [address]) [address] [id number] 13:28:00 Test Item Value Reference Range Interpretation Comments ACTIVATED CLOTTING TIME 499 sec TEST ED AT [place] [address] ([facility]) (test code = [place] [address]) [address] [id number] 13:28:00 Test Item Value Reference Range Interpretation Comments ACTIVATED CLOTTING TIME 626 sec TEST ED AT [place] [address] ([facility]) (test code = [place] [address]) [address] [id number] 13:28:00 Test Item Value Reference Range Interpretation Comments ACTIVATED CLOTTING TIME 417 sec TEST ED AT [place] [address] ([facility]) (test code = [place] [address]) [address] [id number] 13:28:00 Test Item Value Reference Range Interpretation Comments ACTIVATED CLOTTING TIME 422 sec TEST ED AT [place] [address] ([facility]) (test code = [place] [address]) [address] PROTHROMBIN [id number] 13:13:00 Test Item Value Reference Range Interpretation Comments PROTIME (BEAKER) (test code = 23.1 seconds 11.7-14.7 H 759) INR (BEAKER) (test code = 370) 2.1 <=5.9 RECOMMENDED COUMADIN/WARFARIN INR THERAPY RANGESSTANDARD DOSE: 2.0 - 3.0 Includes: PROPHYLAXIS forvenous thrombosis, systemic embolization; TREATMENT for venous thrombosis and/or pulmonary embolus.HIGH RISK: Target INR is 2.5-3.5 for patients with mechanical heart valves.[id number] 13:13:00 Test Item Value Reference Range Interpretation Comments FIBRINOGEN LEVEL (BEAKER) (test 164 mg/dl 225-434 L code = 658) [id number] 13:13:00 Test Item Value Reference Range Interpretation Comments PARTIAL THROMBOPLASTIN TIME 38.9 seconds 22.5-36.0 H (BEAKER) (test code = 760) PLATELET [id number] 12:56:00 Test Item Value Reference Range Interpretation Comments PLATELET COUNT (BEAKER) (test code 58 K/CU MM 150-450 L = 756) BLOOD GAS, [id number] 12:45:00 Test Item Value Reference Range Interpretation Comments PH ARTERIAL (BEAKER) (test code = 7.35 7.35-7.45 383) PCO2 ARTERIAL (BEAKER) (test code 38 mmHg 35-45 = 384) PO2 ARTERIAL (BEAKER) (test code 422 mmHg 80-90 H = 385) O2 SATURATION ARTERIAL (BEAKER) 99.8 % 96.0-97.0 H (test code = 386) HCO3 ARTERIAL (BEAKER) (test code 21 mmol/L 21-29 = 388) BASE EXCESS ARTERIAL (BEAKER) -4.6 mmol/L -2.0-3.0 L (test code = 387) PATIENT TEMPERATURE (BEAKER) 36.6 C (test code = 1818) FIO2 (BEAKER) (test code = 1819) 100.0 % SODIUM NA-STAT [id number] 12:45:00 Test Item Value Reference Range Interpretation Comments SODIUM (BEAKER) (test code = 381) 134 meq/L 135-148 L GLUCOSE-STAT [id number] 12:45:00 Test Item Value Reference Range Interpretation Comments GLUCOSE RANDOM (BEAKER) (test code 235 mg/dL 70-110 H = 652) HGB/HCT (H&H) - STAT [id number] 12:45:00 Test Item Value Reference Range Interpretation Comments HEMOGLOBIN (BEAKER) (test code = 9.4 g/dL 13.0-16.8 L 410) HEMATOCRIT (BEAKER) (test code = 28.0 % 40.0-50.0 L 411) CALCIUM, [id number] 12:45:00 Test Item Value Reference Range Interpretation Comments CALCIUM IONIZED (BEAKER) (test 0.96 mmol/L 1.12-1.27 L code = 698) PH, BLOOD (BEAKER) (test code = 7.35 1810) POTASSIUM-STAT [id number] 12:42:00 Test Item Value Reference Range Interpretation Comments POTASSIUM (BEAKER) (test code = 4.7 meq/L 3.6-5.5 379) BLOOD GAS, [id number] 11:58:00 Test Item Value Reference Range Interpretation Comments PH ARTERIAL (BEAKER) (test code = 7.37 7.35-7.45 383) PCO2 ARTERIAL (BEAKER) (test code 40 mmHg 35-45 = 384) PO2 ARTERIAL (BEAKER) (test code 233 mmHg 80-90 H = 385) O2 SATURATION ARTERIAL (BEAKER) 99.5 % 96.0-97.0 H (test code = 386) HCO3 ARTERIAL (BEAKER) (test code 23 mmol/L 21-29 = 388) BASE EXCESS ARTERIAL (BEAKER) -2.6 mmol/L -2.0-3.0 L (test code = 387) PATIENT TEMPERATURE (BEAKER) 36.1 C (test code = 1818) FIO2 (BEAKER) (test code = 1819) 70.0 % GLUCOSE-STAT [id number] 11:58:00 Test Item Value Reference Range Interpretation Comments GLUCOSE RANDOM (BEAKER) (test code 223 mg/dL 70-110 H = 652) HGB/HCT (H&H) - STAT [id number] 11:58:00 Test Item Value Reference Range Interpretation Comments HEMOGLOBIN (BEAKER) (test code = 10.0 g/dL 13.0-16.8 L 410) HEMATOCRIT (BEAKER) (test code = 29.0 % 40.0-50.0 L 411) SODIUM NA-STAT [id number] 11:56:00 Test Item Value Reference Range Interpretation Comments SODIUM (BEAKER) (test code = 381) 135 meq/L 135-148 POTASSIUM-STAT [id number] 11:56:00 Test Item Value Reference Range Interpretation Comments POTASSIUM (BEAKER) (test code = 5.4 meq/L 3.6-5.5 379) BLOOD GAS, [id number] 11:33:00 Test Item Value Reference Range Interpretation Comments PH ARTERIAL (BEAKER) (test code = 7.39 7.35-7.45 383) PCO2 ARTERIAL (BEAKER) (test code 37 mmHg 35-45 = 384) PO2 ARTERIAL (BEAKER) (test code 260 mmHg 80-90 H = 385) O2 SATURATION ARTERIAL (BEAKER) 99.6 % 96.0-97.0 H (test code = 386) HCO3 ARTERIAL (BEAKER) (test code 22 mmol/L 21-29 = 388) BASE EXCESS ARTERIAL (BEAKER) -2.9 mmol/L -2.0-3.0 L (test code = 387) PATIENT TEMPERATURE (BEAKER) 35.7 C (test code = 1818) FIO2 (BEAKER) (test code = 1819) 70.0 % GLUCOSE-STAT [id number] 11:33:00 Test Item Value Reference Range Interpretation Comments GLUCOSE RANDOM (BEAKER) (test code 195 mg/dL 70-110 H = 652) HGB/HCT (H&H) - STAT [id number] 11:33:00 Test Item Value Reference Range Interpretation Comments HEMOGLOBIN (BEAKER) (test code = 7.9 g/dL 13.0-16.8 L 410) HEMATOCRIT (BEAKER) (test code = 23.0 % 40.0-50.0 L 411) SODIUM NA-STAT [id number] 11:32:00 Test Item Value Reference Range Interpretation Comments SODIUM (BEAKER) (test code = 381) 136 meq/L 135-148 POTASSIUM-STAT [id number] 11:32:00 Test Item Value Reference Range Interpretation Comments POTASSIUM (BEAKER) (test code = 4.8 meq/L 3.6-5.5 379) POTASSIUM-STAT [id number] 11:25:00 Test Item Value Reference Range Interpretation Comments POTASSIUM (BEAKER) (test code = 6.7 meq/L 3.6-5.5 HH 379) BLOOD GAS, [id number] 11:24:00 Test Item Value Reference Range Interpretation Comments PH ARTERIAL (BEAKER) (test code = 7.41 7.35-7.45 383) PCO2 ARTERIAL (BEAKER) (test code 39 mmHg 35-45 = 384) PO2 ARTERIAL (BEAKER) (test code 217 mmHg 80-90 H = 385) O2 SATURATION ARTERIAL (BEAKER) 99.5 % 96.0-97.0 H (test code = 386) HCO3 ARTERIAL (BEAKER) (test code 25 mmol/L 21-29 = 388) BASE EXCESS ARTERIAL (BEAKER) -0.2 mmol/L -2.0-3.0 (test code = 387) PATIENT TEMPERATURE (BEAKER) 35.6 C (test code = 1818) FIO2 (BEAKER) (test code = 1819) 65.0 % GLUCOSE-STAT [id number] 11:24:00 Test Item Value Reference Range Interpretation Comments GLUCOSE RANDOM (BEAKER) (test code 214 mg/dL 70-110 H = 652) HGB/HCT (H&H) - STAT [id number] 11:24:00 Test Item Value Reference Range Interpretation Comments HEMOGLOBIN (BEAKER) (test code = 11.5 g/dL 13.0-16.8 L 410) HEMATOCRIT (BEAKER) (test code = 34.0 % 40.0-50.0 L 411) SODIUM NA-STAT [id number] 11:24:00 Test Item Value Reference Range Interpretation Comments SODIUM (BEAKER) (test code = 381) 130 meq/L 135-148 L POTASSIUM-STAT [id number] 10:34:00 Test Item Value Reference Range Interpretation Comments POTASSIUM (BEAKER) (test code = 5.5 meq/L 3.6-5.5 379) BLOOD GAS, [id number] 10:34:00 Test Item Value Reference Range Interpretation Comments PH ARTERIAL (BEAKER) (test code = 7.36 7.35-7.45 383) PCO2 ARTERIAL (BEAKER) (test code 38 mmHg 35-45 = 384) PO2 ARTERIAL (BEAKER) (test code 292 mmHg 80-90 H = 385) O2 SATURATION ARTERIAL (BEAKER) 99.7 % 96.0-97.0 H (test code = 386) HCO3 ARTERIAL (BEAKER) (test code 23 mmol/L 21-29 = 388) BASE EXCESS ARTERIAL (BEAKER) -4.2 mmol/L -2.0-3.0 L (test code = 387) PATIENT TEMPERATURE (BEAKER) 28.9 C (test code = 1818) FIO2 (BEAKER) (test code = 1819) 65.0 % SODIUM NA-STAT [id number] 10:34:00 Test Item Value Reference Range Interpretation Comments SODIUM (BEAKER) (test code = 381) 133 meq/L 135-148 L GLUCOSE-STAT [id number] 10:34:00 Test Item Value Reference Range Interpretation Comments GLUCOSE RANDOM (BEAKER) (test code 197 mg/dL 70-110 H = 652) HGB/HCT (H&H) - STAT [id number] 10:34:00 Test Item Value Reference Range Interpretation Comments HEMOGLOBIN (BEAKER) (test code = 10.4 g/dL 13.0-16.8 L 410) HEMATOCRIT (BEAKER) (test code = 31.0 % 40.0-50.0 L 411) OXYGEN SATURATION, [id number] 10:13:00 Test Item Value Reference Range Interpretation Comments O2 SATURATION (MEASURED) (BEAKER) 90.1 % (test code = 1455) POTASSIUM-STAT [id number] 10:11:00 Test Item Value Reference Range Interpretation Comments POTASSIUM (BEAKER) (test code = 4.2 meq/L 3.6-5.5 379) BLOOD GAS, [id number] 10:11:00 Test Item Value Reference Range Interpretation Comments PH ARTERIAL (BEAKER) (test code = 7.43 7.35-7.45 383) PCO2 ARTERIAL (BEAKER) (test code 31 mmHg 35-45 L = 384) PO2 ARTERIAL (BEAKER) (test code 322 mmHg 80-90 H = 385) O2 SATURATION ARTERIAL (BEAKER) 99.7 % 96.0-97.0 H (test code = 386) HCO3 ARTERIAL (BEAKER) (test code 22 mmol/L 21-29 = 388) BASE EXCESS ARTERIAL (BEAKER) -3.9 mmol/L -2.0-3.0 L (test code = 387) PATIENT TEMPERATURE (BEAKER) 27.7 C (test code = 1818) FIO2 (BEAKER) (test code = 1819) 70.0 % SODIUM NA-STAT [id number] 10:11:00 Test Item Value Reference Range Interpretation Comments SODIUM (BEAKER) (test code = 381) 129 meq/L 135-148 L GLUCOSE-STAT [id number] 10:11:00 Test Item Value Reference Range Interpretation Comments GLUCOSE RANDOM (BEAKER) (test code 180 mg/dL 70-110 H = 652) HGB/HCT (H&H) - STAT [id number] 10:11:00 Test Item Value Reference Range Interpretation Comments HEMOGLOBIN (BEAKER) (test code = 9.9 g/dL 13.0-16.8 L 410) HEMATOCRIT (BEAKER) (test code = 29.0 % 40.0-50.0 L 411) POTASSIUM-STAT [id number] 10:08:00 Test Item Value Reference Range Interpretation Comments POTASSIUM (BEAKER) (test code = 4.5 meq/L 3.6-5.5 379) BLOOD GAS, [id number] 10:08:00 Test Item Value Reference Range Interpretation Comments PH ARTERIAL (BEAKER) (test code = 7.40 7.35-7.45 383) PCO2 ARTERIAL (BEAKER) (test code 38 mmHg 35-45 = 384) PO2 ARTERIAL (BEAKER) (test code 505 mmHg 80-90 H = 385) O2 SATURATION ARTERIAL (BEAKER) 99.9 % 96.0-97.0 H (test code = 386) HCO3 ARTERIAL (BEAKER) (test code 23 mmol/L 21-29 = 388) BASE EXCESS ARTERIAL (BEAKER) -1.9 mmol/L -2.0-3.0 (test code = 387) PATIENT TEMPERATURE (BEAKER) 35.0 C (test code = 1818) FIO2 (BEAKER) (test code = 1819) 100.0 % SODIUM NA-STAT [id number] 10:08:00 Test Item Value Reference Range Interpretation Comments SODIUM (BEAKER) (test code = 381) 134 meq/L 135-148 L GLUCOSE-STAT [id number] 10:08:00 Test Item Value Reference Range Interpretation Comments GLUCOSE RANDOM (BEAKER) (test code 149 mg/dL 70-110 H = 652) HGB/HCT (H&H) - STAT [id number] 10:08:00 Test Item Value Reference Range Interpretation Comments HEMOGLOBIN (BEAKER) (test code = 12.6 g/dL 13.0-16.8 L 410) HEMATOCRIT (BEAKER) (test code = 37.0 % 40.0-50.0 L 411) PLATELET AGGREGATION: FUNCTION [id number] 09:29:00 Test Item Value Reference Range Interpretation Comments WEAK ADP 67 % 60-91 RESULT(BEAKER) (test code = 2135) PLATELET FUNCTION 60-100% indicates SCREEN INTERP (BEAKER) normal platelet (test code = 2173) function [id number] Mai Hdz MD (BEAKER) (test code = (electronic signature) 2622) PLATELET COUNT AGG 138 K/CU MM 150-450 L (BEAKER) (test code = 2656) PROTHROMBIN [id number] 08:20:00 Test Item Value Reference Range Interpretation Comments PROTIME (BEAKER) (test code = 14.4 seconds 11.7-14.7 759) INR (BEAKER) (test code = 370) 1.1 <=5.9 RECOMMENDED COUMADIN/WARFARIN INR THERAPY RANGESSTANDARD DOSE: 2.0 - 3.0 Includes: PROPHYLAXIS forvenous thrombosis, systemic embolization; TREATMENT for venous thrombosis and/or pulmonary embolus.HIGH RISK: Target INR is 2.5-3.5 for patients with mechanical heart valves.HEMOGLOBIN [id number] 12:58:00 Test Item Value Reference Range Interpretation Comments HEMOGLOBIN A1C (BEAKER) (test code = 5.4 % 4.3-6.1 368) RAD, CHEST, 2 [id number] 11:52:00Reason for Exam:->Pre-OpFINAL REPORT Chest two views INDICATION: Preoperative exam. Aortic valve stenosis, subacute bacterial endocarditis, pulmonary emphysema COMPARISON: None available IMPRESSION: There is emphysema/COPD. There are scattered linear atelectasis or scarring but no focal consolidation, edema, pleural effusion, or pneumothorax. The cardiac silhouette is enlarged. Cardiac valvular or annular calcifications are present. Median sternotomy changes, aortic calcifications, osteopenia, chronic left rib fracture, and lower thoracic vertebral compression deformity are noted. Signed: aWyne Sorto MDReport Verified Date/Time: 09/28/2017 11:52:35 Reading Location: [facility] Reading Room [id number] 10:30:00 Test Item Value Reference Range Interpretation Comments CREATININE (BEAKER) 1.05 mg/dL 0.57-1.25 (test code = 358) EGFR (BEAKER) (test 71 mL/min/1.73 ESTIMA REYES GFR IS code = 1092) sq m NOT ACCURATE CREATININE CLEARANCE IN PREDICTING GLOMERULAR FILTRATION RATE . ESTIMATED GFR I S NOT APPLICABLE FOR DIALYSIS PATIEN TS. [id number] 10:30:00 Test Item Value Reference Range Interpretation Comments BLOOD UREA NITROGEN (BEAKER) (test 20 mg/dL 7-21 code = 354) PROTHROMBIN [id number] 10:26:00 Test Item Value Reference Range Interpretation Comments PROTIME (BEAKER) (test code = 15.0 seconds 11.7-14.7 H 759) INR (BEAKER) (test code = 370) 1.2 <=5.9 RECOMMENDED COUMADIN/WARFARIN INR THERAPY RANGESSTANDARD DOSE: 2.0 - 3.0 Includes: PROPHYLAXIS forvenous thrombosis, systemic embolization; TREATMENT for venous thrombosis and/or pulmonary embolus.HIGH RISK: Target INR is 2.5-3.5 for patients with mechanical heart valves.CBC W/PLT COUNT & AUTO DIFFERENTIAL 2017-09-28 10:19:00 Test Item Value Reference Range Interpretation Comments WHITE BLOOD CELL COUNT (BEAKER) 6.0 K/ L 3.5-10.5 (test code = 775) RED BLOOD CELL COUNT (BEAKER) 4.48 M/ L 4.63-6.08 L (test code = 761) HEMOGLOBIN (BEAKER) (test code = 12.5 GM/DL 13.7-17.5 L 410) HEMATOCRIT (BEAKER) (test code = 38.3 % 40.1-51.0 L 411) MEAN CORPUSCULAR VOLUME (BEAKER) 85.5 fL 79.0-92.2 (test code = 753) MEAN CORPUSCULAR HEMOGLOBIN 27.9 pg 25.7-32.2 (BEAKER) (test code = 751) MEAN CORPUSCULAR HEMOGLOBIN CONC 32.6 GM/DL 32.3-36.5 (BEAKER) (test code = 752) RED CELL DISTRIBUTION WIDTH 14.6 % 11.6-14.4 H (BEAKER) (test code = 412) PLATELET COUNT (BEAKER) (test 143 K/CU MM 150-450 L code = 756) MEAN PLATELET VOLUME (BEAKER) 11.3 fL 9.4-12.4 (test code = 754) NUCLEATED RED BLOOD CELLS 0 /100 WBC 0-0 (BEAKER) (test code = 413) NEUTROPHILS RELATIVE PERCENT 62 % (BEAKER) (test code = 429) LYMPHOCYTES RELATIVE PERCENT 23 % (BEAKER) (test code = 430) MONOCYTES RELATIVE PERCENT 10 % (BEAKER) (test code = 431) EOSINOPHILS RELATIVE PERCENT 4 % (BEAKER) (test code = 432) BASOPHILS RELATIVE PERCENT 1 % (BEAKER) (test code = 437) NEUTROPHILS ABSOLUTE COUNT 3.73 K/ L 1.78-5.38 (BEAKER) (test code = 670) LYMPHOCYTES ABSOLUTE COUNT 1.39 K/ L 1.32-3.57 (BEAKER) (test code = 414) MONOCYTES ABSOLUTE COUNT (BEAKER) 0.61 K/ L 0.30-0.82 (test code = 415) EOSINOPHILS ABSOLUTE COUNT 0.22 K/ L 0.04-0.54 (BEAKER) (test code = 416) BASOPHILS ABSOLUTE COUNT (BEAKER) 0.06 K/ L 0.01-0.08 (test code = 417) IMMATURE GRANULOCYTES-RELATIVE 0 % 0-1 PERCENT (BEAKER) (test code = 2801) PROTHROMBIN [id number] 10:29:00 Test Item Value Reference Range Interpretation Comments PROTIME (BEAKER) (test code = 15.7 seconds 11.7-14.7 H 759) INR (BEAKER) (test code = 370) 1.3 <=5.9 RECOMMENDED COUMADIN/WARFARIN INR THERAPY RANGESSTANDARD DOSE: 2.0 - 3.0 Includes: PROPHYLAXIS forvenous thrombosis, systemic embolization; TREATMENT for venous thrombosis and/or pulmonary embolus.HIGH RISK: Target INR is 2.5-3.5 for patients with mechanical heart valves.
[2020-08-09 21:37] LABS: ALT/SGPT 23 U/L (12-78); AST/SGOT 18 U/L (15-37); Albumin 3.4 g/dL (3.4-5.0); Alkaline Phosphatase 76 U/L (45-117); BUN Blood Urea Nitrogen 22 mg/dL (7-18); Bicarbonate 28 mmol/L (21-32); Bilirubin Direct 0.4 mg/dL (0-0.2); Bilirubin Total 1.5 mg/dL (0.2-1.0); Glucose Level 161 mg/dL (74-106); Magnesium 2.1 mg/dL (1.8-2.4); NT PRO-BNP 1272 pg/mL (<125); Protein, Total 7.3 g/dL (6.4-8.2); Sodium Level 139 mmol/L (136-145); Troponin (Emerg Dept Use Only) < 0.02 ng/mL (0.0-0.045)
[2020-08-09] MEDS ORDERED: ALBUTEROL INHALER 60 PUFF/8 GM IH ONE (21:47)
[2020-08-09] MEDS ORDERED: ACETAMINOPHEN 500 MG TAB ONE (21:47)
[2020-08-09 22:07] LABS: Protime INR 2.19
[2020-08-09 22:53] LABS: Urine Blood NEGATIVE (NEG); Urine Glucose NEGATIVE (NEG); Urine Protein 1+ (NEG)
[2020-08-09] MEDS ORDERED: AZITHROMYCIN 500 MG INJ IVPB ONE (22:53)
[2020-08-09] MEDS ORDERED: CEFTRIAXONE/SWI 1gm 1 GM/10 ML SYR ONE (22:53)
[2020-08-09] MEDS ORDERED: NA CHLORIDE 0.9% 250 ML ONE (22:54)
--- NOTE | 2020-08-09 23:28 | ER ---
Nurse's Notes [facility] Name: Alexsander Wylie Age: 70 yrs Sex: Male : 1950 Arrival Date: 08/09/2020 Time: 20:19 Bed 18 Private MD: Diagnosis: Pneumonia;Hypoxia Presentation: 08/09 20:19 Method Of Arrival: Wheelchair ca1 20:19 Coronavirus screen: Client denies travel out of the [place] in the last 14 days. fever, ca1 shortness of breath, Client presents with at least one sign or symptom that may indicate coronavirus-19. Standard/surgical mask placed on the client. Provider contacted for isolation considerations. Ebola Screen: Patient negative for fever greater than or equal to 101.5 degrees Fahrenheit, and additional compatible Ebola Virus Disease symptoms Patient denies exposure to infectious person. Patient denies travel to an Ebola-affected area in the 21 days before illness onset. No symptoms or risks identified at this time. Initial Sepsis Screen: Does the patient meet any 2 criteria? RR > 20 per min. Temp <36.0*C (96.8*F)) or > 38.3*C (100.9*F). HR > 90 bpm. Yes Does the patient have a suspected source of infection? Yes: Productive cough/pneumonia. Risk Assessment: Do you want to hurt yourself or someone else? Patient reports no desire to harm self or others. 20:20 Onset of symptoms was August 09, 2020. ca1 20:20 Chief complaint: Patient states: SOB with exertion x 1 month, progressively worse. ca1 Fever today. 20:22 Note a CODE SEPSIS has been called. sg 20:23 Acuity: [place] 2 sg Historical: - Allergies: 20:24 Sulfa (Sulfonamide Antibiotics); sg - PMHx: 20:24 Hyperlipidemia; Hypertension; stroke; sg - PSHx: 20:24 mitral valve replacement; Appendectomy; sg - Immunization history:: Adult Immunizations up to date, Flu vaccine is not up to date. - Social history:: Smoking status: Patient/guardian denies using tobacco, the patient reports quitting approximately 5 years ago. Screenin/07 01:19 Abuse screen: Denies threats or abuse. Nutritional screening: No deficits noted. ll2 Tuberculosis screening: No symptoms or risk factors identified. Fall Risk None identified. Assessment: 08/09 20:15 General: Appears comfortable, Behavior is calm, cooperative, appropriate for age. Pain: ll2 Denies pain. Neuro: Level of Consciousness is awake, alert, obeys commands, Oriented to person, place, time, situation. Cardiovascular: Patient's skin is warm and dry. Respiratory: Airway is patent Respiratory effort is even, labored, Respiratory pattern is regular, symmetrical. GI: No signs and/or symptoms were reported involving the gastrointestinal system. : No signs and/or symptoms were reported regarding the genitourinary system. EENT: No signs and/or symptoms were reported regarding the EENT system. Derm: Skin is intact, is thin, Skin is pink, warm \T\ dry. Musculoskeletal: Circulation, motion, and sensation intact. Range of motion: intact in all extremities. 21:20 Reassessment: Patient and/or family updated on plan of care and expected duration. Pain ll2 level reassessed. Patient is alert, oriented x 3, equal unlabored respirations, skin warm/dry/pink. 22:30 Reassessment: Patient and/or family updated on plan of care and expected duration. Pain ll2 level reassessed. Patient is alert, oriented x 3, equal unlabored respirations, skin warm/dry/pink. 23:30 Reassessment: Patient and/or family updated on plan of care and expected duration. Pain ll2 level reassessed. Patient is alert, oriented x 3, equal unlabored respirations, skin warm/dry/pink. pt resting comfortably. 08/10 00:30 Reassessment: Patient and/or family updated on plan of care and expected duration. Pain ll2 level reassessed. Patient is alert, oriented x 3, equal unlabored respirations, skin warm/dry/pink. 01:30 Reassessment: Patient and/or family updated on plan of care and expected duration. Pain ll2 level reassessed. Patient is alert, oriented x 3, equal unlabored respirations, skin warm/dry/pink. Vital Signs: 08/09 20:19 BP 146 / 69; Pulse 104; Resp 24 S; Temp 102.5(O); Pulse Ox 70% on R/A; Weight 95.25 kg ca1 (M); Height 6 ft. 0 in. (182.88 cm) (R); 20:27 Pulse Ox 95% on 4 lpm NC; ca1 20:30 BP 146 / 65; Pulse 99; Resp 19; Pulse Ox 97% on 5 lpm NC; ll2 21:30 BP 114 / 59; Pulse 88; Resp 19; Pulse Ox 98% on 5 lpm NC; ll2 22:30 BP 104 / 60; Pulse 87; Resp 22; Pulse Ox 96% on 5 lpm NC; ll2 23:30 BP 117 / 65; Pulse 82; Resp 20; Pulse Ox 98% on 5 lpm NC; ll2 03 00:30 BP 109 / 58; Pulse 78; Resp 14; Pulse Ox 98% on 5 lpm NC; ll2 01:58 BP 136 / 76; Pulse 82; Resp 17; Temp 98.6; Pulse Ox 99% on 5 lpm NC; ll2 03 20:19 Body Mass Index 28.48 (95.25 kg, 182.88 cm) ca1 ED Course: 08/09 20:19 Patient arrived in ED. sg 20:19 Patricia Nash RN is Primary Nurse. ll2 20:20 Arm band placed on right wrist. ca1 20:22 Davian Beal MD is Attending Physician. 7 20:23 Triage completed. sg 21:41 Inserted saline lock: 20 gauge in right forearm, using aseptic technique. Blood dh4 collected. Missed attempt(s): 20 gauge in right antecubital area. 21:48 XRAY Chest (1 view) In Process Unspecified. EDMS 21:48 Influenza Screen (a \T\ B) Sent. ll2 23:14 Urine Dipstick--Ancillary (enter results) Sent. ll2 23:26 Juan David Leung DO is Hospitalizing Provider. [facility] 08/10 01:19 Patient has correct armband on for positive identification. Placed in gown. Bed in low ll2 position. Call light in reach. Side rails up X 1. inserter promotional item on. Pulse ox on. NIBP on. 01:19 No provider procedures requiring assistance completed. Patient admitted, IV remains in ll2 place. Administered Medications: 08/09 21:47 Drug: Albuterol HFA Inhaler 2 puffs Route: Inhalation; ll2 21:48 Drug: Tylenol 1000 mg Route: PO; ll2 22:32 Follow up: Response: No adverse reaction ll2 22:52 Drug: Rocephin - (cefTRIAXone) 1 grams Route: IVPB; Infused Over: 30 mins; Site: right ll2 antecubital; 22:52 Drug: AZITHromycin 500 mg Route: IVPB; Infused Over: 1 hrs; Site: right forearm; 2 Outcome: 23:27 Decision to Hospitalize by Provider. [email or web address] 08/10 01:19 Admitted to Med/surg accompanied by tech, via wheelchair, with oxygen, Report called to remy Murphy RN Condition: stable Instructed on the need for admit. 02:14 Patient left the ED. [facility] Signatures: Dispatcher [employer] EDRaghu Ordaz RN RN Rachel Raza RN RN [facility] Ananda Tavares [facility] Patricia Nash RN RN 2 Davian Beal MD MD [facility]
--- NOTE | 2020-08-09 23:28 | EDPHYS ---
Physician Documentation [facility] Name: Alexsander Wylie Age: 70 yrs Sex: Male : 1950 Arrival Date: 08/09/2020 Time: 20:19 Bed 18 Private MD: ED Physician Davian Beal HPI: 08/09 21:40 This 70 yrs old Male presents to ER via Wheelchair with complaints of mh7 Shortness Of Breath. 21:40 The patient has shortness of breath at rest, with light activity. Onset: The mh7 symptoms/episode began/occurred 2 day(s) ago. Duration: The symptoms are intermittent, with no pattern. The patient's shortness of breath is aggravated by coughing, exertion, light activity, is alleviated by nothing. 21:41 Associated signs and symptoms: Pertinent positives: non-productive cough, fever, mh7 Pertinent negatives: chest pain, diaphoresis, dizziness, hemoptysis, loss of consciousness, nausea, numbness in extremities, visual changes, vomiting. Severity of symptoms: At their worst the symptoms were moderate today, in the emergency department the symptoms are unchanged. Historical: - Allergies: 20:24 Sulfa (Sulfonamide Antibiotics); sg - PMHx: 20:24 Hyperlipidemia; Hypertension; stroke; sg - PSHx: 20:24 mitral valve replacement; Appendectomy; sg - Immunization history:: Adult Immunizations up to date, Flu vaccine is not up to date. - Social history:: Smoking status: Patient/guardian denies using tobacco, the patient reports quitting approximately 5 years ago. ROS: 21:41 Eyes: Negative for injury, pain, redness, and discharge, ENT: Negative for injury, mh7 pain, and discharge, Neck: Negative for injury, pain, and swelling, Cardiovascular: Negative for chest pain, palpitations, and edema, Abdomen/GI: Negative for abdominal pain, nausea, vomiting, diarrhea, and constipation, Back: Negative for injury and pain, : Negative for injury, bleeding, discharge, and swelling, MS/Extremity: Negative for injury and deformity, Skin: Negative for injury, rash, and discoloration, Neuro: Negative for headache, weakness, numbness, tingling, and seizure, Psych: Negative for depression, anxiety, suicide ideation, homicidal ideation, and hallucinations, Allergy/Immunology: Negative for hives, rash, and allergies, Endocrine: Negative for neck swelling, polydipsia, polyuria, polyphagia, and marked weight changes, Hematologic/Lymphatic: Negative for swollen nodes, abnormal bleeding, and unusual bruising. Exam: 21:41 Head/Face: Normocephalic, atraumatic. Eyes: Pupils equal round and reactive to light, mh7 extra-ocular motions intact. Lids and lashes normal. Conjunctiva and sclera are non-icteric and not injected. Cornea within normal limits. Periorbital areas with no swelling, redness, or edema. Neck: Trachea midline, no thyromegaly or masses palpated, and no cervical lymphadenopathy. Supple, full range of motion without nuchal rigidity, or vertebral point tenderness. No Meningismus. Chest/axilla: Normal chest wall appearance and motion. Nontender with no deformity. No lesions are appreciated. 21:41 Abdomen/GI: Soft, non-tender, with normal bowel sounds. No distension or tympany. No guarding or rebound. No evidence of tenderness throughout. Back: No spinal tenderness. No costovertebral tenderness. Full range of motion. Skin: Warm, dry with normal turgor. Normal color with no rashes, no lesions, and no evidence of cellulitis. MS/ Extremity: Pulses equal, no cyanosis. Neurovascular intact. Full, normal range of motion. Neuro: Awake and alert, GCS 15, oriented to person, place, time, and situation. Cranial nerves II-XII grossly intact. Motor strength 5/5 in all extremities. Sensory grossly intact. Cerebellar exam normal. Normal gait. Psych: Awake, alert, with orientation to person, place and time. Behavior, mood, and affect are within normal limits. 21:41 Constitutional: The patient appears alert, awake, obviously ill. 21:41 Cardiovascular: Rate: tachycardic, Rhythm: regular, Pulses: no pulse deficits are appreciated, Heart sounds: normal, normal S1and S2, Edema: pedal edema, that is mild, JVD: is not appreciated. 21:41 Respiratory: mild respiratory distress is noted, Respirations: prolonged exhalation, that is mild, tachypnea, that is mild, Breath sounds: rhonchi, that are moderate, are scattered, Respiratory rate: 24 Vital Signs: 20:19 BP 146 / 69; Pulse 104; Resp 24 S; Temp 102.5(O); Pulse Ox 70% on R/A; Weight 95.25 kg ca1 (M); Height 6 ft. 0 in. (182.88 cm) (R); 20:27 Pulse Ox 95% on 4 lpm NC; ca1 20:30 BP 146 / 65; Pulse 99; Resp 19; Pulse Ox 97% on 5 lpm NC; ll2 21:30 BP 114 / 59; Pulse 88; Resp 19; Pulse Ox 98% on 5 lpm NC; ll2 22:30 BP 104 / 60; Pulse 87; Resp 22; Pulse Ox 96% on 5 lpm NC; ll2 23:30 BP 117 / 65; Pulse 82; Resp 20; Pulse Ox 98% on 5 lpm NC; ll2 08/10 00:30 BP 109 / 58; Pulse 78; Resp 14; Pulse Ox 98% on 5 lpm NC; ll2 01:58 BP 136 / 76; Pulse 82; Resp 17; Temp 98.6; Pulse Ox 99% on 5 lpm NC; ll2 03 20:19 Body Mass Index 28.48 (95.25 kg, 182.88 cm) ca1 MDM: 08/09 23:25 Differential diagnosis: Anemia Anxiety Reaction asthma, Bronchitis CHF exacerbation, 7 Chronic Obstructive Pulmonary Disease Myocardial Infarction pneumonia, Pneumothorax Psychogenic pulmonary edema. Data reviewed: vital signs, nurses notes, lab test result(s), cardiac enzymes, CBC, electrolytes, EKG, radiologic studies, plain films. Data interpreted: Pulse oximetry: on 6L(s) per nasal canula, is 95 %. Interpretation: acceptable. Counseling: I had a detailed discussion with the patient and/or guardian regarding: the historical points, exam findings, and any diagnostic results supporting the discharge/admit diagnosis, the presence of at least one elevated blood pressure reading (>120/80) during this emergency department visit, lab results, radiology results, the need for further work-up and treatment in the hospital. 23:27 Patient medically screened. [facility] 08/09 20:32 Order name: Basic Metabolic Panel; Complete Time: 22:08 [facility] 08/09 20:32 Order name: CBC with Diff; Complete Time: 01:04 [facility] 08/09 20:32 Order name: LFT's; Complete Time: 22:08 [facility] 08/09 20:32 Order name: Magnesium; Complete Time: 22:08 [facility] 08/09 20:32 Order name: NT PRO-BNP; Complete Time: 22:08 [facility] 08/09 20:32 Order name: PT-INR; Complete Time: 22:08 [facility] 08/09 20:32 Order name: Troponin (emerg Dept Use Only); Complete Time: 22:08 [facility] 08/09 20:33 Order name: Blood Culture Adult (2) [facility] 08/09 20:33 Order name: Lactate; Complete Time: 22:08 [facility] 08/09 20:33 Order name: Procalcitonin; Complete Time: 22:08 [facility] 08/09 20:33 Order name: Urine Culture [facility] 08/09 20:35 Order name: Influenza Screen (a \\T\\ B) [facility] 08/09 20:35 Order name: COVID-19 : Document "Date of Symptom Onset" if Symptomatic. [facility] 08/09 20:35 Order name: Influenza Screen (A [facility] 08/09 20:32 Order name: XRAY Chest (1 view) [facility] 08/09 20:32 Order name: EKG; Complete Time: 20:33 [facility] 08/09 20:32 Order name: Cardiac monitoring; Complete Time: 21:41 [facility] 08/09 20:32 Order name: EKG - Nurse/Tech; Complete Time: 21:41 [facility] 08/09 20:32 Order name: IV Saline Lock; Complete Time: 21:41 [facility] 08/09 20:32 Order name: Labs collected and sent; Complete Time: 21:41 [facility] 08/09 21:12 Order name: CRP; Complete Time: 22:01 [facility] 08/09 22:33 Order name: SARS-COV-2 RT PCR; Complete Time: 22:49 [facility] 08/09 22:35 Order name: Urine Dipstick--Ancillary (enter results) tt3 08/09 22:54 Order name: Urine Dipstick-Ancillary; Complete Time: 22:55 [facility] 08/10 00:30 Order name: Chest Wo Con CT [facility] 08/09 20:32 Order name: O2 Per Protocol; Complete Time: 21:41 [facility] 08/09 20:32 Order name: O2 Sat Monitoring; Complete Time: 21:41 [facility] 08/09 20:33 Order name: Urine Dipstick-Ancillary (obtain specimen); Complete Time: 22:32 [facility] 08/09 23:07 Order name: Labs - recollect needed: Need a recollect on the CBC plz; Complete Time: 23:14 Administered Medications: 21:47 Drug: Albuterol HFA Inhaler 2 puffs Route: Inhalation; ll2 21:48 Drug: Tylenol 1000 mg Route: PO; ll2 22:32 Follow up: Response: No adverse reaction ll2 22:52 Drug: Rocephin - (cefTRIAXone) 1 grams Route: IVPB; Infused Over: 30 mins; Site: right ll2 antecubital; 22:52 Drug: AZITHromycin 500 mg Route: IVPB; Infused Over: 1 hrs; Site: right forearm; ll2 Disposition: 08/09/20 23:27 Hospitalization ordered by Juan David Leung for Inpatient Admission. Preliminary diagnosis are Pneumonia, Hypoxia. - Bed requested for Telemetry/MedSurg (Inpatient). - Status is Inpatient Admission. ll2 - Condition is Stable. - Problem is new. - Symptoms have improved. Signatures: Dispatcher [employer] [facility] Raghu Randle RN RN sg Shemar Farley, SALES MARKETING COORDINATOR-C SALES MARKETING COORDINATOR-Cla1 Maria Esther Prather RN RN cg aRchel Raza RN RN ca1 Patricia Nash RN RN 2 Davian Beal MD MD 7 Corrections: (The following items were deleted from the chart) 21:46 20:35 CORONAVIRUS ordered. [facility] 08/10 01:07 03 23:27 Hospitalization Ordered by Juan David Leung DO for Inpatient Admission. Preliminary diagnosis is Pneumonia; Hypoxia. Bed requested for Telemetry/MedSurg (Inpatient). Status is Inpatient Admission. Condition is Stable. Problem is new. Symptoms have improved. [facility] 08/10 02:14 01:07 08/09/2020 23:27 Hospitalization Ordered by Juan David Leung DO for Inpatient ll2 Admission. Preliminary diagnosis is Pneumonia; Hypoxia. Bed requested for Telemetry/MedSurg (Inpatient). Status is Inpatient Admission. Condition is Stable. Problem is new. Symptoms have improved.
[2020-08-09 23:39] LABS: Absolute Lymphocytes (CBC) 0.6 K/uL (0.7-4.9); Basophils % 1.2 % (0-1.3); Hematocrit 32.8 % (39.6-49.0); Lymphocytes % 6.8 % (15.3-44.8); RBC Red Blood Cell Count 3.78 M/uL (4.33-5.43)
--- NOTE | 2020-08-10 01:16 | P.HP ---
Certification for Inpatient Patient admitted to: Inpatient With expected LOS: >2 Midnights Patient will require the following post-hospital care: None Practitioner: I am a practitioner with admitting privileges, knowledge of patient current condition, hospital course, and medical plan of care. Services: Services provided to patient in accordance with Admission requirements found in Title 42 Section 412.3 of the Code of Federal Regulations Patient History Date of Service: 08/10/20 Primary Care Provider: Dr. Lee, Dr. Garrett Reason for admission: Pneumonia History of Present Illness: 70-year-old male with history of chronic diastolic congestive heart failure, COPD, asbestosis, hypertension history of CVA presents emergency department for shortness of breath. Patient reports progressive shortness of breath increasing over the course of the last 2-3 days. Patient usually does not require any oxygen at home although he has had significant dyspnea on exertion walking even short distances over the course of the last few months. Currently in the emergency department patient requiring 4 L per nasal cannula s aturating in the 70s to 80s on room air, also noted to have fever up to 102. Lab significant for white blood cell count 9.4, hemoglobin 10.8 hematocrit 32.8 creatinine 1.2 GFR 60 CRP elevated 121 BNP 1272. Urine negative for UTI, COVID negative. Chest x-ray appears to show multifocal pneumonia. ED provider wishes to admit patient for further evaluation and management. When I saw the patient in the ER he is awake, alert, oriented x3. Patient breathing well on 4 L per nasal cannula saturating in the 90s, significant pedal edema to lower extremities which patient reports is baseline due to chronic venous insufficiency and chronic diastolic congestive heart failure. states that her legs are pretty similar to baseline currently. Patient reports he has had recent echocardiogram but I was not able to find this for this is likely done in the cardiology office. Patient also with history of aortic valve repair x2 porcine. Patient does not appear septic at this time, will admit for further evaluation and management. Allergies sulfamethoxazole [From Bactrim] Allergy (Verified 09/01/17 13:29) Hives trimethoprim [From Bactrim] Allergy (Verified 09/01/17 13:29) Hives Home Medications: Ropinirole HCl 16 mg PO BEDTIME 01/06/16 Atorvastatin Calcium [Lipitor*] 20 mg PO BEDTIME #30 tab 07/06/17 Metoprolol Tartrate [Lopressor*] 100 mg PO BID #120 tab 07/06/17 Albuterol Sulfate [Proair Respiclick] 2 puff IH Q4HP PRN 07/18/20 Budesonide/Formoterol Fumarate [Symbicort 160-4.5 Mcg Inhaler] 2 puff IH Q12H 07/18/20 Furosemide [Lasix*] 80 mg PO BID 07/18/20 Multivitamin [Multiple Vitamins] 1 tab PO DAILY 07/18/20 Potassium Chloride 10 meq PO BID 07/18/20 Rivaroxaban [Xarelto*] 20 mg PO DAILY 07/18/20 Spironolactone [Aldactone*] 50 mg PO DAILY #30 tab 07/18/20 traMADol HCL [Ultram*] 50 mg PO BIDP PRN 07/18/20 Cyanocobalamin (Vitamin B-12) [Vitamin B12] 5,000 mcg SL DAILY #30 tab.rapdis 07/19/20 Minocycline HCl 100 mg PO Q12H #20 capsule 07/19/20 Pregabalin [Lyrica] 75 mg PO BID #60 cap 07/19/20 predniSONE [Deltasone] 20 mg PO BID #7 tab 07/19/20 - Past Medical/Surgical History Diabetic: No -: History CVA x4 -: Hyperlipidemia -: Aortic valve replacement -: Paroxysmal atrial fibrillation -: Chronic diastolic congestive heart failure -: Former tobacco use -: Restless leg syndrome -: BPH -: Asbestosis -: Appendectomy -: Aortic valve replacement x2 secondary to patent ductus Psychosocial/ Personal History: The patient is He has 1 child. He is retired. - Family History Father -: Heart disease, Lung disease Notes: COPD - Social History Smoking Status: Former smoker Alcohol use: Yes CD- Drugs: No Caffeine use: Yes Place of Residence: Home Review of Systems General: Fever, Chills, Weakness, Malaise Respiratory: Cough, Shortness of Breath, SOB with Excertion, Pleuritic Pain, Sputum Physical Examination - Physical Exam General: Alert, In no apparent distress, Oriented x3 HEENT: Atraumatic, Normocephalic, Mucous membr. moist/pink Neck: Supple Respiratory: Normal air movement, Rhonchi/gurgles (Scattered, bilaterally) Cardiovascular: Normal S1 S2, No murmurs, Edema (Bilateral lower extremities, family reports that is at its current baseline.) Capillary refill: <2 Seconds Gastrointestinal: Normal bowel sounds, No ascites, No tenderness, No masses Musculoskeletal: No swelling, No contractures, No erythema Integumentary: No tenderness/swelling, No erythema, No warmth Neurological: Normal speech, Normal strength at 5/5 x4 extr, Normal tone Lymphatics: No axilla or inguinal lymphadenopathy - Studies Laboratory Data (last 24 hrs) 08/09/20 23:21: WBC 9.40, Hgb 10.8 L D, Hct 32.8 L D, Plt Count 133 L 08/09/20 21:42: PT 25.4 H, INR 2.19 08/09/20 21:00: Sodium 139, Potassium 4.0, BUN 22 H, Creatinine 1.20, Glucose 161 H, Magnesium 2.1, Total Bilirubin 1.5 H, AST 18, ALT 23, Alkaline Phosphatase 76 Assessment and Plan - Plan Assessment Acute hypoxic respiratory failure secondary to Bilateral pneumonia Acute on chronic diastolic congestive heart failure COPD exacerbation Mild REBECA Hypertension Plan Acute hypoxic respiratory failure secondary to Bilateral pneumonia: Continue with IV Rocephin/Zithromax, sputum culture ordered. Blood cultures obtained. CT chest without contrast pending. COVID test negative. DVT prophylaxis heparin 5000 units subcutaneous twice daily. Acute on chronic diastolic congestive heart failure: 1500 cc per day fluid restrictions, daily weights, continue with Lasix 80 mg twice daily, cardiology consult in place. Unable to review recent echocardiogram, possibly done at Cardiology office. Appreciate further input from cardiology. COPD exacerbation: Continue with IV Solu-Medrol, p.r.n. nebulizer treatments, patient not currently wheezing. Mild REBECA: Will need to continue IV diuresis, nephrology consulted as patient likely with some underlying CKD and was supposed to see renal on outpatient, appreciate further input from nephrology. Hypertension: Obtain and continue home medications as appropriate. Discharge Plan: Home Plan to discharge in: 72 Hours - Advance Directives Does patient have a Living Will: No Does patient have a Durable POA for Healthcare: No - Code Status/Comfort Care Code Status Assessed: Yes (Full code) Critical Care: No Time Spent Managing Pts Care (In Minutes): 55
[2020-08-10] MEDS ORDERED: ONDANSETRON 4 MG/2 ML VIAL IV PRN (01:26)
[2020-08-10] MEDS ORDERED: ALBUTEROL 2.5 MG/3 ML NEB SOL NEB PRN (01:26)
[2020-08-10] MEDS ORDERED: ACETAMINOPHEN 500 MG TAB PO PRN (01:26)
[2020-08-10] MEDS: METHYLPREDNISOLONE 125 MG INJ IV SCH ×3 (02:43→17:56)
[2020-08-10] MEDS ORDERED: TRAMADOL HCL 50 MG TAB PO PRN (03:13)
[2020-08-10] MEDS ORDERED: BENZONATATE 100 MG CAP PO PRN (03:14)
[2020-08-10] MEDS ORDERED: HOME MED 1 EA UNK (Budesonide/Formoterol Fumarate [Symbicort 160-4.5 Mcg Inhaler] 10.2 GM IH SCH (03:15)
[2020-08-10 04:43] LABS: Urine Appearance CLEAR; Urine Bilirubin NEGATIVE (NEG); Urine Blood NEGATIVE (NEG); Urine Color YELLOW; Urine Glucose NEGATIVE (NEG); Urine Protein NEGATIVE (NEG); Urine Specific Gravity 1.015 (1.005-1.030)
[2020-08-10 05:03] LABS: Urine Microscopic Reflex NO UMIC
[2020-08-10] MEDS ORDERED: METOPROLOL TARTRATE 5 MG/5 ML INJ IV STA (05:40)
[2020-08-10] MEDS ORDERED: LORazepam 2 MG/ML VIAL IV ONE (05:44)
[2020-08-10] MEDS ORDERED: LORazepam 2 MG/ML VIAL ONE (05:54)
[2020-08-10 06:44] LABS: Absolute Lymphocytes (CBC) 0.4 K/uL (0.7-4.9); Basophils % 0.4 % (0-1.3); Hematocrit 38.5 % (39.6-49.0); MPV 8.9 fL (7.6-11.3); RBC Red Blood Cell Count 4.39 M/uL (4.33-5.43)
[2020-08-10 07:10] LABS: Albumin 3.4 g/dL (3.4-5.0); Bilirubin Total 1.7 mg/dL (0.2-1.0); Potassium 3.9 mmol/L (3.5-5.1); Protein, Total 7.7 g/dL (6.4-8.2); Thyroid Stimulating Hormone 2.89 uIU/mL (0.360-3.740)
--- NOTE | 2020-08-10 08:28 | P.PN ---
Subjective Date of Service: 08/10/20 Primary Care Provider: Dr. Lee, Cardiology-Dr. Garrett Chief Complaint: Pneumonia Subjective: Other (Patient had some difficult breathing this morning after he went to the bathroom. Patient was on 5 L per nasal cannula. Now on BiPAP. Patient improved. Patient was given Lopressor and Ativan.) Physical Examination - Vital Signs Temperature: 98.1 F Blood Pressure: 221/110 Pulse: 127 Respirations: 18 Pulse Ox (%): 97 - Studies Laboratory Data (last 24 hrs) 08/09/20 23:21: WBC 9.40, Hgb 10.8 L D, Hct 32.8 L D, Plt Count 133 L 08/09/20 21:42: PT 25.4 H, INR 2.19 08/09/20 21:00: Sodium 139, Potassium 4.0, BUN 22 H, Creatinine 1.20, Glucose 161 H, Magnesium 2.1, Total Bilirubin 1.5 H, AST 18, ALT 23, Alkaline Phosphatase 76 Assessment & Plan Discharge Plan: Home Plan to discharge in: 72 Hours Physician Review Additional Text: Initial chief complaint: 70-year-old male with shortness of breath with multiple medical problems including CHF, COPD, atrial fibrillation on chronic anti coagulation therapy, history of aortic valve replacement, history of asbestosis, hypertension. Physical exam: Patient alert, mild distress noted but stable. Currently on BiPAP. Heart: Sinus tachycardia rate around 110 Lungs: Crackles to the bases. Some wheezing noted bilateral Abdomen: Soft nontender nondistended GI: 1-2 plus pitting edema to the lower extremities bilateral Assessment Dyspnea, edema secondary to acute hypoxic respiratory failure likely multifactorial related to bilateral pneumonia, acute on chronic diastolic CHF, and COPD exacerbation Acute on chronic diastolic CHF COPD exacerbation Chronic Atrial fibrillation on chronic anti coagulation therapy Hypertension Diabetes mellitus type 2 Depression with anxiety Chronic renal disease stage II Restless Leg Syndrome History of Aortic Stenosis S/P aortic valve replacement times 2 Plan: Dyspnea, edema secondary to acute hypoxic respiratory failure likely multifactorial related to bilateral pneumonia, acute on chronic diastolic CHF, and COPD exacerbation: Patient admitted for further evaluation and treatment. Patient currently on BiPAP due to his shortness of breath after exertion. Will limit activity today. Patient was given Lopressor and Ativan earlier. Will monitor the patient closely. Respiratory to wean off BiPAP. For his pneumonia will continue with Rocephin and Zithromax. Will also continue with vitamin supplementation. For his CHF, we will increase Lasix to 80 mg IV twice daily. Continue fluid restriction. For his COPD will change his maintenance steroid inhaler medication to Brovana 1 unit dose twice daily. Continue with albuterol, Atrovent as needed. Recheck chest x-ray tomorrow. Patient recently evaluated by Cardiology. Patient had recent echocardiogram with Dr. Garrett in his office which showed normal aortic valve. Pulmonology and Cardiology consulted. Will continue to monitor the patient closely. Anticipate improvement over the next 24-48 hr. Patient may require home oxygen at discharge. I will turn the service over to the hospitalist team tomorrow. I will go plan of care with him. Acute on chronic diastolic CHF: Continue 1500 cc per day fluid restriction. Will provide IV Lasix 80 mg twice daily now. Continue monitor input and output closely. Monitor weight daily. Recent echocardiogram with cardiology showed normal heart valve. Await further recommendations from cardiology. COPD exacerbation: Continue IV Solu-Medrol. Discontinue maintenance steroid inhaler and change to Brovana twice daily. Continue albuterol and Atrovent as needed. Wean off oxygen. Patient may require oxygen at discharge. Await recommendations from pulmonology. Atrial fibrillation on chronic anti coagulation therapy: Lopressor IV given this morning. Continue with metoprolol. Continue with Xarelto. Hypertension: Continue with metoprolol. Will monitor and adjust appropriately peer Chronic renal disease stage II: This appears stable. Will monitor closely. Nephrology consulted to further evaluate. Diabetes mellitus type 2: Recent hemoglobin A1c done last month was 7.3. Patient with new diagnosis of diabetes. Will continue Accu-Cheks and sliding scale. Will start low-dose Amaryl. Restless leg syndrome: Continue with home medication. History of aortic stenosis status post aortic valve replacement x2: Recent echocardiogram done by Cardiology in office was unremarkable. Await further recommendations from cardiology. Time Spent Managing Pts Care (In Minutes): 55
[2020-08-10] MEDS ORDERED: GLUCAGON 1 MG/VIAL IM PRN (08:40)
[2020-08-10] MEDS ORDERED: LEVALBUTEROL 0.63 MG/3 ML NEB NEB PRN (08:41)
[2020-08-10] MEDS ORDERED: D50W 25 GM/50 ML VIAL IV PRN (08:46)
[2020-08-10] MEDS ORDERED: FUROSEMIDE 40 MG/4 ML VIAL IV SCH ×3 (09:00)
[2020-08-10] MEDS ORDERED: HOME MED 1 EA UNK (Multivitamin [Multiple Vitamins] Tablet) PO SCH (09:00)
[2020-08-10] MEDS: CYANOCOBALAMIN 1,000 MCG TAB SL SCH (09:00)
[2020-08-10] MEDS ORDERED: CEFTRIAXONE 1 GM/NS 50 ML 1 GM/50 ML BAG IV SCH (09:00)
[2020-08-10] MEDS: AZITHROMYCIN IV 500 MG in NA CHLORIDE 0.9% 250 ML IVPB SCH (09:00)
[2020-08-10] MEDS ORDERED: FUROSEMIDE 40 MG TABLET PO SCH (09:00)
[2020-08-10] MEDS ORDERED: HEPARIN 5000 UNIT/ML 1 ML VIAL SQ SCH (09:00)
[2020-08-10] MEDS: MULTIVITAMIN TAB PO SCH (09:00)
[2020-08-10] MEDS: CEFTRIAXONE/SWI 1gm 1 GM/10 ML SYR IV SCH (09:00)
[2020-08-10 09:35] LABS: Platelet Estimate ADEQ; White Blood Cell Scan OK (OK)
[2020-08-10 09:36] LABS: Blood Morphology Comment NOT SEEN (NOT SEEN)
[2020-08-10] MEDS: THIAMINE HCL 100 MG TABLET PO SCH (09:49)
[2020-08-10] MEDS: POTASSIUM CL SA 10 MEQ TAB PO SCH ×2 (09:49→17:56)
[2020-08-10] MEDS: ATORVASTATIN 20 MG TAB PO SCH (09:49)
[2020-08-10] MEDS: VITAMIN D 1000 UNIT TAB PO SCH (09:50)
[2020-08-10] MEDS: METOPROLOL TAR 50 MG TAB PO SCH ×2 (09:50→21:00)
[2020-08-10] MEDS: ZINC SULFATE 220 MG CAP PO SCH (09:51)
[2020-08-10] MEDS: ASCORBIC ACID 500 MG TABLET PO SCH ×4 (09:51→21:00)
[2020-08-10] MEDS: GLIMEPIRIDE 2 MG TABLET PO SCH ×2 (10:16→17:00)
[2020-08-10 11:14] LABS: Arterial Blood Carboxyhemoglob 1.3 % (0-1.5); Blood Gas Oxyhemoglobin 90.1 % (94-97); Blood O2 Saturation 92.1 % (92-98.5)
[2020-08-10] MEDS: INSULIN -REGULAR HUMAN 50 UNIT/0.5 ML ML SQ SCH ×3 (11:30→21:00)
[2020-08-10] MEDS ORDERED: TRAMADOL HCL 50 MG TAB ONE ×2 (12:26→15:17)
[2020-08-10] MEDS ORDERED: TRAMADOL HCL 50 MG TAB PO ONE (15:11)
--- NOTE | 2020-08-10 15:43 | CON ---
Date of Consultation: 08/10/2020 Reason For Consultation: Congestive heart failure. History Of Present Illness: A 70-year-old male with history of COPD, congestive heart failure, asbes tosis, hypertension, CVA, presented with progressive shortness of breath for the past 2-3 days. Also , he had fever, significant lower extremity edema, fevers up to 102. The patient has been followed a s an outpatient with Dr. Garrett and he was started on Zaroxolyn lately for the significant edema. D enies having any chest pain. He has history of aortic valve stenosis status post replacement. Has h istory of AFib as well. Past Medical History: As outlined above in the HPI. Medications: Refer to reconciliation sheet for detailed list. Allergies: SULFA AND TRIMETHOPRIM. Social History: He is an ex-smoker. Does not drink or use any drugs. Review of Systems: All systems reviewed and they were negative except what mentioned in the HPI. Physical Examination: Vital Signs: Temperature is 98.1, pulse is 88, breathing at 26 to 27 breaths per minute, blood press ure is 120/56, saturating 97% on BiPAP. General: Middle-aged male, appears in mild respiratory distress. Head and Neck: Pupils are equal, react to light. Intact eye movements. Positive JVD. No cervical lymphadenopathy. Neck: Supple. Thyroid is not enlarged. Lungs: Rhonchi bilaterally. No accessory muscle use or muscle retraction. Heart: Irregular. No extra sounds. Abdomen: Soft, nontender. Bowel sounds positive. No organomegaly. No tenderness. No rigidity or rebound. Extremities: More than 3+ pitting edema bilaterally. No clubbing, cyanosis. Skin: No rash. Neurologic: Alert, awake, oriented x3. No acute focal deficits appreciated. Investigations: Creatinine 1.16, BUN is 23. C-reactive protein is 121. NT-proBNP is 1272. Troponi n less than 0.02. Procalcitonin is less than 0.05. White blood cell count is 12.9 and hemoglobin is 12.4. Rapid COVID test is negative. Assessment And Plan: 1.Acute on chronic diastolic congestive heart failure. Recommend Lasix 40 mg IV q.6 hours for aggre ssive diuresis and monitor BUN and creatinine and electrolytes closely and adjust Lasix dose accordin gly, and obtain an echocardiogram if it was not done recently to further evaluate the aortic valve pr osthesis. 2.Acute respiratory failure likely due to combination of congestive heart failure plus possible bila teral pneumonia. The patient has fever and evaluation for COVID-19 infection is warranted. Recommen d Pulmonary evaluation as the patient also has significant chronic obstructive pulmonary disease issu e that is contributing to his respiratory failure as well. Thank you for the consultation. KELLY Voice ID: [id number] Report ID: [id number]
[2020-08-10] MEDS ORDERED: METHYLPREDNISOLONE 125 MG INJ ONE (17:25)
[2020-08-10] MEDS ORDERED: ASCORBIC ACID 500 MG TABLET ONE ×2 (17:26→20:30)
[2020-08-10] MEDS ORDERED: POTASSIUM CL SA 10 MEQ TAB PO ONE (17:26)
[2020-08-10] MEDS ORDERED: FUROSEMIDE 40 MG/4 ML VIAL ONE (17:27)
[2020-08-10] MEDS: FUROSEMIDE 40 MG/4 ML VIAL IV SCH (17:56)
--- NOTE | 2020-08-10 18:29 | P.CNS ---
Primary Care Provider: Dr. Lee, Cardiology-Dr. Garrett Chief Complaint: Pneumonia History of Present Illness: Pt is a 70 y/o female with past medical hx of hypertension, pulmonary fibrosis, copd, possible chronic kidney disease presented overnight with complaints of shortness of breath worsened with activity or exertion as well as bill le swelling. Pt does have a hx of chornic lymphedema which needs occasional leg wrapping. Pt at this time has an exacerbation of his baseline lower extremity edema. by bedside is giving hx as pt is maintained on bipap. Symptoms started about 3 nights ago when pt was short of breath on exertion going to the restroom. Denies any chest pain, nausea, vomiting. On arrival, pt was placed on bipap, started on lasix 80mg iv bid. Pt responding. Labs pertinent for creatinine of 1.1 compares to baseline of 0.8 about one year ago. Renal has been consulted for continued management Allergies sulfamethoxazole [From Bactrim] Allergy (Verified 08/10/20 02:25) Hives trimethoprim [From Bactrim] Allergy (Verified 08/10/20 02:25) Hives Home Medications: Ropinirole HCl 12 mg PO BEDTIME 01/06/16 Metoprolol Tartrate [Lopressor*] 100 mg PO BID #120 tab 07/06/17 Albuterol Sulfate [Proair Respiclick] 2 puff IH Q4HP PRN 07/18/20 Budesonide/Formoterol Fumarate [Symbicort 160-4.5 Mcg Inhaler] 2 puff IH Q12H 07/18/20 Furosemide [Lasix*] 80 mg PO BID 07/18/20 Multivitamin [Multiple Vitamins] 1 tab PO DAILY 07/18/20 Potassium Chloride 10 meq PO BID 07/18/20 Rivaroxaban [Xarelto*] 20 mg PO BEDTIME 07/18/20 traMADol HCL [Ultram*] 50 mg PO BIDP PRN 07/18/20 Cyanocobalamin (Vitamin B-12) [Vitamin B12] 5,000 mcg SL DAILY #30 tab.rapdis 07/19/20 Minocycline HCl 100 mg PO Q12H #20 capsule 07/19/20 Atorvastatin Calcium [Lipitor*] 20 mg PO DAILY 08/10/20 - Past Medical/Surgical History Diabetic: No -: History CVA x4 -: Hyperlipidemia -: Aortic valve replacement -: Paroxysmal atrial fibrillation -: Chronic diastolic congestive heart failure -: Former tobacco use -: Restless leg syndrome -: BPH -: Pleural thickening -: COPD -: Appendectomy -: Aortic valve replacement x2 secondary to patent ductus Psychosocial/ Personal History: The patient is He has 1 child. He is retired. - Family History Father Medical History: Heart disease, Lung disease, Other (see notes) Notes: COPD; asbestosis - Social History Smoking Status: Current every day smoker Alcohol use: Yes CD- Drugs: No Caffeine use: Yes Place of Residence: Home Review of Systems 10-point ROS is otherwise unremarkable Physical Examination Temp Pulse Resp BP Pulse Ox 98.1 F 125 H 18 120/56 L 98 08/10/20 08:40 08/10/20 10:16 08/10/20 15:15 08/10/20 10:16 08/10/20 15:15 General: Moderate distress HEENT: Atraumatic, Normocephalic Neck: JVD distended Respiratory: Crackles/rales Cardiovascular: Edema Capillary refill: <2 Seconds Gastrointestinal: Normal bowel sounds, No tenderness Musculoskeletal: No tenderness Neurological: Normal gait, Normal strength at 5/5 x4 extr Urinary: Bustillos catheter Laboratory Data (last 24 hrs) 08/09/20 23:21: WBC 9.40, Hgb 10.8 L D, Hct 32.8 L D, Plt Count 133 L 08/09/20 21:42: PT 25.4 H, INR 2.19 08/09/20 21:00: Sodium 139, Potassium 4.0, BUN 22 H, Creatinine 1.20, Glucose 161 H, Magnesium 2.1, Total Bilirubin 1.5 H, AST 18, ALT 23, Alkaline Phosphatase 76 Physician Review Additional Text: Problems Acute hypoxic respiratory failure secondary to chf exacerbation, copd exacerbation CKD progression vs mild REBECA mostly cardiorenal, however suspect creatinine at baseline Hypervolemia Plan Agree with current plan Volume control with lasix 80MG iv bid Possible hepatic contribution as well. Will check pt/inr Will place on spironolactone as well for elio antagonist Agree with treatment for copd exacerbation At this time, would hold off on any nsaids, fleece enemas. Renal ultrasound ordered
[2020-08-10] MEDS: ARFORMOTEROL TARTRATE 15 MCG/2 ML VIAL.NEB NEB SCH (20:00)
[2020-08-10] MEDS ORDERED: BENZONATATE 100 MG CAP PO ONE (20:29)
[2020-08-10] MEDS ORDERED: METOPROLOL TAR 50 MG TAB ONE (20:29)
[2020-08-10] MEDS ORDERED: LABETALOL HCL 100 MG TAB ONE (20:30)
[2020-08-10] MEDS ORDERED: TRAMADOL 37.5mg/APAP 325mg PER TAB ONE (20:32)
[2020-08-10] MEDS: ROPINIROLE HCL 1 MG TAB PO SCH (21:00)
[2020-08-10] MEDS ORDERED: RIVAROXABAN 10 MG TABLET PO SCH (21:00)
--- NOTE | 2020-08-10 21:23 | RAD REPORT ---
EXAM DESCRIPTION: US - Renal Ultrasound-Complete - 08/10/2020 9:06 pm CLINICAL HISTORY: REBECA ON CKD Flank pain COMPARISON: No comparisons FINDINGS: Both kidneys are normal in size, shape and echotexture. The right kidney measures 13.4 x 6.2 x 5.7 cm. No hydronephrosis, focal mass or perinephric fluid. The left kidney measures 13.4 x 5.3 x 4.9 cm. No hydronephrosis, focal mass or perinephric fluid. The urinary bladder is incompletely distended without gross abnormality seen. IMPRESSION: Unremarkable renal sonogram.
[2020-08-10] MEDS ORDERED: INSULIN -REGULAR HUMAN 50 UNIT/0.5 ML ML ONE (22:23)
[2020-08-11] MEDS ORDERED: FUROSEMIDE 100 MG/10 ML VIAL IV ONE (00:12)
[2020-08-11] MEDS ORDERED: METHYLPREDNISOLONE 40 MG INJ ONE ×2 (00:14→18:06)
[2020-08-11] MEDS: METHYLPREDNISOLONE 125 MG INJ IV SCH ×2 (00:25→08:57)
[2020-08-11] MEDS ORDERED: TRAMADOL HCL 50 MG TAB ONE ×2 (02:12→10:44)
[2020-08-11] MEDS: TRAMADOL HCL 50 MG TAB PO PRN (02:22)
[2020-08-11 05:21] LABS: Absolute Lymphocytes (CBC) 0.4 K/uL (0.7-4.9); Basophils % 0.2 % (0-1.3); MPV 9.1 fL (7.6-11.3); RBC Red Blood Cell Count 3.71 M/uL (4.33-5.43)
[2020-08-11] MEDS: FUROSEMIDE 40 MG/4 ML VIAL IV SCH ×4 (05:54→20:19)
[2020-08-11 05:57] LABS: Albumin 2.9 g/dL (3.4-5.0); Bilirubin Total 0.8 mg/dL (0.2-1.0); Ferritin 303.7 ng/mL (26-388); Magnesium 2.5 mg/dL (1.8-2.4); Potassium 3.8 mmol/L (3.5-5.1); Protein, Total 6.8 g/dL (6.4-8.2)
--- NOTE | 2020-08-11 07:20 | RAD REPORT ---
EXAM DESCRIPTION: RAD - Chest Single View - 08/11/2020 5:33 am CLINICAL HISTORY: pna COMPARISON: CT chest August 10, portable chest August 09, portable chest July 17 TECHNIQUE: AP portable chest image was obtained 08/11/2020 5:33 am . FINDINGS: Pacemaker remains in place. No new tube or line. Bilateral interstitial and alveolar opacities have progressed in the right upper lung field. Left sony g field and right base are not substantially different. Cardiac silhouette remains enlarged. Vasculat ure is prominent. Sternotomy wires in place. Right pleural effusion is present. Minimal left pleural effusion may be present as well. No acute bony abnormality seen. No acute aortic findings suspected. IMPRESSION: Extensive bilateral pneumonia pattern worsening in the right upper lobe. Small bilateral pleural effusions.
[2020-08-11] MEDS: INSULIN -REGULAR HUMAN 50 UNIT/0.5 ML ML SQ SCH ×4 (07:30→20:31)
[2020-08-11] MEDS: VITAMIN D 1000 UNIT TAB PO SCH (08:57)
[2020-08-11] MEDS: ATORVASTATIN 20 MG TAB PO SCH (08:57)
[2020-08-11] MEDS: MULTIVITAMIN TAB PO SCH (08:57)
[2020-08-11] MEDS: ZINC SULFATE 220 MG CAP PO SCH (08:58)
[2020-08-11] MEDS: CEFTRIAXONE/SWI 1gm 1 GM/10 ML SYR IV SCH (08:58)
[2020-08-11] MEDS: POTASSIUM CL SA 10 MEQ TAB PO SCH ×2 (08:58→17:40)
[2020-08-11] MEDS: ASCORBIC ACID 500 MG TABLET PO SCH ×4 (08:58→20:18)
[2020-08-11] MEDS: METOPROLOL TAR 50 MG TAB PO SCH ×2 (08:59→20:20)
[2020-08-11] MEDS ORDERED: METHYLPREDNISOLONE 125 MG INJ ONE ×2 (09:07→17:43)
[2020-08-11] MEDS: THIAMINE HCL 100 MG TABLET PO SCH (09:07)
[2020-08-11] MEDS ORDERED: MULTIVITAMIN TAB PO ONE (09:08)
[2020-08-11] MEDS ORDERED: ZINC SULFATE 220 MG CAP ONE (09:08)
[2020-08-11] MEDS ORDERED: POTASSIUM CL SA 10 MEQ TAB PO ONE ×2 (09:08→17:43)
[2020-08-11] MEDS ORDERED: ATORVASTATIN 20 MG TAB ONE (09:08)
[2020-08-11] MEDS ORDERED: ASCORBIC ACID 500 MG TABLET ONE ×4 (09:08→21:15)
[2020-08-11] MEDS ORDERED: VITAMIN D 1000 UNIT TAB ONE ×2 (09:08→09:24)
[2020-08-11] MEDS ORDERED: CEFTRIAXONE/SWI 1gm 1 GM/10 ML SYR ONE (09:09)
[2020-08-11] MEDS ORDERED: AZITHROMYCIN 500 MG INJ IVPB ONE (09:09)
[2020-08-11] MEDS ORDERED: THIAMINE HCL 100 MG TABLET ONE (09:24)
[2020-08-11] MEDS: ARFORMOTEROL TARTRATE 15 MCG/2 ML VIAL.NEB NEB SCH ×2 (09:50→20:00)
[2020-08-11] MEDS ORDERED: PANTOPRAZOLE 40 MG INJ IVP ONE (10:21)
[2020-08-11] MEDS ORDERED: SODIUM CHLORIDE 0.9% 10ML INJ IV PRN (10:21)
[2020-08-11] MEDS: GLIMEPIRIDE 2 MG TABLET PO SCH ×2 (10:29→17:41)
[2020-08-11] MEDS: CYANOCOBALAMIN 1,000 MCG TAB SL SCH (10:30)
[2020-08-11] MEDS: AZITHROMYCIN IV 500 MG in NA CHLORIDE 0.9% 250 ML IVPB SCH (10:30)
[2020-08-11] MEDS ORDERED: PANTOPRAZOLE 40 MG INJ ONE ×2 (11:23→20:42)
[2020-08-11] MEDS ORDERED: clonazePAM 1 MG TAB PO ONE (13:37)
[2020-08-11] MEDS ORDERED: FUROSEMIDE 40 MG TABLET ONE (14:16)
[2020-08-11] MEDS ORDERED: clonazePAM 1 MG TAB ONE (14:17)
[2020-08-11] MEDS ORDERED: INSULIN -REGULAR HUMAN 50 UNIT/0.5 ML ML ONE ×3 (14:18→20:48)
[2020-08-11] MEDS ORDERED: FUROSEMIDE 40 MG/4 ML VIAL ONE ×2 (14:23→21:15)
[2020-08-11] MEDS ORDERED: INFLUENZA VACCINE (for 3y+) 0.5 ML DOSE IMVAC ONE (15:00)
[2020-08-11] MEDS ORDERED: PNEUMOCOCCAL VACCINE 0.5 ML IMVAC ONE (15:00)
--- NOTE | 2020-08-11 15:46 | P.CNS ---
Date of Consult: 08/11/20 Primary Care Provider: Dr. Lee, Cardiology-Dr. Garrett Chief Complaint: Pneumonia History of Present Illness: patient is 70 years of age with chronic diastolic heart failure COPD asbestosis stroke admitted to the emergency room with him worsening dyspnea over the past 2-3 days does not have any oxygen at home complaining of dyspnea on mild exertion as prone become progressively worse currently on BiPAP has improved history of aortic valve repair Allergies sulfamethoxazole [From Bactrim] Allergy (Verified 08/10/20 02:25) Hives trimethoprim [From Bactrim] Allergy (Verified 08/10/20 02:25) Hives Home Medications: Ropinirole HCl 12 mg PO BEDTIME 01/06/16 Metoprolol Tartrate [Lopressor*] 100 mg PO BID #120 tab 07/06/17 Albuterol Sulfate [Proair Respiclick] 2 puff IH Q4HP PRN 07/18/20 Budesonide/Formoterol Fumarate [Symbicort 160-4.5 Mcg Inhaler] 2 puff IH Q12H 07/18/20 Furosemide [Lasix*] 80 mg PO BID 07/18/20 Multivitamin [Multiple Vitamins] 1 tab PO DAILY 07/18/20 Potassium Chloride 10 meq PO BID 07/18/20 Rivaroxaban [Xarelto*] 20 mg PO BEDTIME 07/18/20 traMADol HCL [Ultram*] 50 mg PO BIDP PRN 07/18/20 Cyanocobalamin (Vitamin B-12) [Vitamin B12] 5,000 mcg SL DAILY #30 tab.rapdis 07/19/20 Minocycline HCl 100 mg PO Q12H #20 capsule 07/19/20 Atorvastatin Calcium [Lipitor*] 20 mg PO DAILY 08/10/20 - Past Medical/Surgical History Diabetic: No -: History CVA x4 -: Hyperlipidemia -: Aortic valve replacement -: Paroxysmal atrial fibrillation -: Chronic diastolic congestive heart failure -: Former tobacco use -: Restless leg syndrome -: BPH -: Pleural thickening -: COPD -: Appendectomy -: Aortic valve replacement x2 secondary to patent ductus Psychosocial/ Personal History: The patient is He has 1 child. He is retired. - Family History Father Medical History: Heart disease, Lung disease, Other (see notes) Notes: COPD; asbestosis - Social History Smoking Status: Current every day smoker Alcohol use: Yes CD- Drugs: No Caffeine use: Yes Place of Residence: Home Review of Systems 10-point ROS is otherwise unremarkable General: Weakness Respiratory: Shortness of Breath Physical Examination Temp Pulse Resp BP Pulse Ox 98.8 F 104 H 25 H 150/76 H 97 08/11/20 12:00 08/11/20 14:06 08/11/20 11:00 08/11/20 14:06 08/11/20 12:00 General: Alert, Oriented x3, Cooperative Respiratory: Clear to auscultation bilaterally, Diminished, Friction rub Cardiovascular: Regular rate/rhythm Gastrointestinal: Normal bowel sounds, Soft and benign - Problems (1) Respiratory failure Current Visit: Yes Status: Acute Plan: patient is 70 years of age admitted with respiratory failure bilateral pulmonary infiltrate highly suspicious for nelson virus pneumonia he does have a history of COPD patient is on anticoagulants currently on BiPAP labs reviewed patient is mildly anemic CT scan also reviewed I recommend trial of high doses of steroids ivermectin continue with steroids reduce the dose of IV Lasix continue with Zithromax and Rocephin Qualifiers: Chronicity: acute
[2020-08-11] MEDS: METHYLPREDNISOLONE 40 MG INJ IV SCH (17:50)
--- NOTE | 2020-08-11 18:21 | RAD REPORT ---
EXAM DESCRIPTION: Chest Single View CLINICAL HISTORY: 70 years Male SOB;Fever COMPARISON: None. FINDINGS: There is mild diffuse opacity overlying the lungs most pronounced in the left midlung. The findings are likely from an infectious/inflammatory process. Changes from edema are not completely e xcluded. There are likely small pleural effusions slightly larger on the right. No pneumothorax. The cardiomediastinal silhouette is grossly unremarkable but suboptimally evaluated from overlying opacit ies. Changes from previous sternotomy. Left cardiac pacemaker with lead tips overlying the right at rium and right ventricle. IMPRESSION: Mild diffuse opacity overlying the lungs most pronounced in the left midlung. The findin gs are likely from an infectious/inflammatory process. Changes from edema not totally excluded. Follo w-up to resolution is recommended. Electronically signed by: Mik Rodgers MD 08/09/2020 11:36 PM [employer] Due to temporary technical issues with the PACS/Fluency reporting system, reports are being signed by the in house radiologists without review as a courtesy to insure prompt reporting. The interpreting radiologist is fully responsible for the content of the report.
--- NOTE | 2020-08-11 18:59 | P.PN ---
Subjective Date of Service: 08/11/20 Primary Care Provider: Dr. Lee, Cardiology-Dr. Garrett Chief Complaint: Pneumonia Still short of breath, now maintained on 3l nasal canula. Review of Systems 10-point ROS is otherwise unremarkable Physical Examination - Vital Signs Temperature: 98.0 F Blood Pressure: 123/70 Pulse: 76 Respirations: 23 Pulse Ox (%): 97 - Physical Exam General: Alert, In no apparent distress HEENT: Atraumatic, PERRLA, EOMI Neck: Supple, JVD not distended Respiratory: Diminished Cardiovascular: Regular rate/rhythm, Normal S1 S2, Edema Capillary refill: <2 Seconds Gastrointestinal: Normal bowel sounds, No tenderness Musculoskeletal: No tenderness Neurological: Normal speech, Normal tone, Normal affect Assessment & Plan Physician Review Additional Text: Problems Acute hypoxic respiratory failure secondary to chf exacerbation, copd exacerbation CKD progression vs mild REBECA mostly cardiorenal, however suspect creatinine at baseline Hypervolemia Plan Agree with current plan Volume control with lasix 40mg iv q6h Possible hepatic contribution as well. Will check pt/inr Continue spironolactone as well for elio antagonist Agree with treatment for copd exacerbation At this time, would hold off on any nsaids, fleece enemas. Renal ultrasound ordered
[2020-08-11 20:03] LABS: Protime INR 2.3
[2020-08-11] MEDS: RIVAROXABAN 20 MG TABLET PO SCH (20:16)
[2020-08-11] MEDS: ROPINIROLE HCL 1 MG TAB PO SCH (20:17)
[2020-08-11] MEDS: PANTOPRAZOLE 40 MG INJ IVP SCH (20:28)
[2020-08-12] MEDS: METHYLPREDNISOLONE 40 MG INJ IV SCH ×3 (00:12→20:25)
[2020-08-12] MEDS ORDERED: METHYLPREDNISOLONE 40 MG INJ ONE ×3 (00:27→20:29)
[2020-08-12] MEDS: TRAMADOL HCL 50 MG TAB PO PRN (05:25)
[2020-08-12] MEDS ORDERED: TRAMADOL HCL 50 MG TAB ONE (05:43)
[2020-08-12 05:50] LABS: Urine Protein/Creatinine Ratio 0.14 ratio (<0.15)
[2020-08-12 05:56] LABS: Absolute Lymphocytes (CBC) 0.4 K/uL (0.7-4.9); Basophils % 0.3 % (0-1.3); Hematocrit 32.9 % (39.6-49.0); Lymphocytes % 2.9 % (15.3-44.8); MPV 9.1 fL (7.6-11.3); RBC Red Blood Cell Count 3.79 M/uL (4.33-5.43)
--- NOTE | 2020-08-12 06:08 | P.PN ---
Subjective Date of Service: 08/11/20 Patient's states he is clinically doing much better. They to come off BiPAP today and he did well on nasal cannula for quite a while. Advanced enough for a long time so I asked him to lay back in bed. The nurse states that when he did go back to lay down. He became more tachypneic. They went ahead and turned his oxygen up in even though his oxygen saturations were fine he was still feeling short of breath. The went ahead and placed him back on BiPAP. Possibly fluid overloaded. Will give another dose of Lasix. Plan was to transfer him to the general medical floor but after this episode will keep him in ICU. If he does well through the night plan to transfer him to the floor in the morning Review of Systems 10-point ROS is otherwise unremarkable Physical Examination - Vital Signs Temperature: 97.6 F Blood Pressure: 116/69 Pulse: 62 Respirations: 21 Pulse Ox (%): 100 - Physical Exam General: Alert, In no apparent distress, Oriented x3 HEENT: Atraumatic, PERRLA, EOMI Respiratory: Diminished, Crackles/rales, Expiratory wheezes Cardiovascular: Regular rate/rhythm, Normal S1 S2 Gastrointestinal: Normal bowel sounds, Soft and benign, Non-distended, No tenderness Musculoskeletal: No clubbing, Swelling, Tenderness Integumentary: Other (Patient w/bruising throughout) Neurological: Sensation intact, Cranial nerves 3-12 intact - Studies Medications List Reviewed: Yes Assessment & Plan - Problems (Diagnosis) (1) CHF (congestive heart failure), NYHA class II Current Visit: No Status: Acute (2) COPD exacerbation Current Visit: No Status: Acute (3) CVA (cerebral vascular accident) Onset Date: 01/08/16 Current Visit: No Status: Acute Qualifiers: CVA mechanism: unspecified Qualified Code(s): I63.9 - Cerebral infarction, unspecified (4) Endocarditis and heart valve disorders in diseases classified elsewhere Current Visit: No Status: Acute (5) Leg edema Current Visit: No Status: Acute (6) H/O aortic valve replacement Current Visit: No Status: Chronic (7) HTN (hypertension) Onset Date: 01/08/16 Current Visit: No Status: Chronic Qualifiers: Hypertension type: essential hypertension Qualified Code(s): I10 - Essential (primary) hypertension (8) Hyperlipidemia Onset Date: 01/08/16 Current Visit: No Status: Chronic Qualifiers: Hyperlipidemia type: unspecified Qualified Code(s): E78.5 - Hyperlipidemia, unspecified (9) COPD (chronic obstructive pulmonary disease) Current Visit: No Status: Suspected Qualifiers: COPD type: chronic bronchitis - Plan 1. Echocardiogram pending. Spoke with Cardiology and they will notify me with results 2. Continue with diuresing patient at this time; continue with antibiotic therapy. Patient with diffuse infiltrates bilaterally. Afebrile and no significant white count. Cultures pending 3. Will look through external medical history to see if he is taking his diuretics appropriately. 4. Cardiology consultation pending 5. Wean off of BiPAP and also put him on an anxiolytics 6. Strict I's and O's 7. Repeat CXR 8. Daily weights 9. Education regarding diet and treatment of congestive heart failure Discharge Plan: Home - Advance Directives Does patient have a Living Will: No Does patient have a Durable POA for Healthcare: No Critical Care: Yes Time Spent Managing PTS Care (In Minutes): 35
[2020-08-12 06:09] LABS: Magnesium 2.8 mg/dL (1.8-2.4); Phosphorus 2.8 mg/dL (2.5-4.9); Potassium 4.1 mmol/L (3.5-5.1)
[2020-08-12 06:21] LABS: Albumin 2.9 g/dL (3.4-5.0); Bilirubin Total 0.8 mg/dL (0.2-1.0); C-Reactive Protein 68.1 mg/L (<3.00); Ferritin 334.5 ng/mL (26-388); Magnesium 2.8 mg/dL (1.8-2.4); Potassium 4.1 mmol/L (3.5-5.1); Protein, Total 6.8 g/dL (6.4-8.2)
[2020-08-12] MEDS: PANTOPRAZOLE 40 MG INJ IVP SCH ×2 (07:34→20:25)
[2020-08-12] MEDS: FUROSEMIDE 40 MG/4 ML VIAL IV SCH ×2 (07:35→20:25)
[2020-08-12] MEDS: INSULIN -REGULAR HUMAN 50 UNIT/0.5 ML ML SQ SCH ×4 (07:36→20:57)
[2020-08-12] MEDS: CYANOCOBALAMIN 1,000 MCG TAB SL SCH (07:37)
[2020-08-12] MEDS: VITAMIN D 1000 UNIT TAB PO SCH (07:38)
[2020-08-12] MEDS: GLIMEPIRIDE 2 MG TABLET PO SCH ×2 (07:39→17:40)
[2020-08-12] MEDS: THIAMINE HCL 100 MG TABLET PO SCH (07:39)
[2020-08-12] MEDS: ASCORBIC ACID 500 MG TABLET PO SCH ×4 (07:39→20:24)
[2020-08-12] MEDS: MULTIVITAMIN TAB PO SCH (07:39)
[2020-08-12] MEDS: ATORVASTATIN 20 MG TAB PO SCH (07:39)
[2020-08-12] MEDS: ZINC SULFATE 220 MG CAP PO SCH (07:40)
[2020-08-12] MEDS: POTASSIUM CL SA 10 MEQ TAB PO SCH ×2 (07:40→17:34)
[2020-08-12] MEDS: METOPROLOL TAR 50 MG TAB PO SCH ×2 (07:41→21:00)
[2020-08-12] MEDS: CEFTRIAXONE/SWI 1gm 1 GM/10 ML SYR IV SCH (07:42)
[2020-08-12] MEDS ORDERED: MULTIVITAMIN TAB PO ONE (07:43)
[2020-08-12] MEDS: AZITHROMYCIN 250 MG TAB PO SCH (07:43)
[2020-08-12] MEDS ORDERED: ZINC SULFATE 220 MG CAP ONE (07:43)
[2020-08-12] MEDS ORDERED: THIAMINE HCL 100 MG TABLET ONE (07:43)
[2020-08-12] MEDS ORDERED: ATORVASTATIN 20 MG TAB ONE (07:44)
[2020-08-12] MEDS ORDERED: AZITHROMYCIN 250 MG TAB ONE (07:44)
[2020-08-12] MEDS ORDERED: ASCORBIC ACID 500 MG TABLET ONE ×4 (07:44→20:29)
[2020-08-12] MEDS ORDERED: VITAMIN D 1000 UNIT TAB ONE (07:44)
--- NOTE | 2020-08-12 07:44 | RAD REPORT ---
EXAM DESCRIPTION: Liz Single View08/12/2020 5:19 am CLINICAL HISTORY: Shortness of breath COMPARISON: August 11, 2020 FINDINGS: No significant change in moderate to marked bilateral pulmonary opacities. Heart remains enlarged. Pacemaker leads in place. Postsurgical changes involve the chest. Small pleural effusions IMPRESSION: No significant change in the moderate to marked bilateral pulmonary opacities
[2020-08-12] MEDS ORDERED: PANTOPRAZOLE 40 MG INJ ONE ×2 (07:45→20:27)
[2020-08-12] MEDS ORDERED: FUROSEMIDE 40 MG/4 ML VIAL ONE ×3 (07:45→20:27)
[2020-08-12] MEDS ORDERED: POTASSIUM CL SA 10 MEQ TAB PO ONE ×2 (07:45→17:39)
[2020-08-12] MEDS ORDERED: INSULIN -REGULAR HUMAN 50 UNIT/0.5 ML ML ONE ×4 (07:46→21:13)
[2020-08-12] MEDS ORDERED: CEFTRIAXONE/SWI 1gm 1 GM/10 ML SYR ONE (07:47)
[2020-08-12] MEDS: IPRATROPIUM BROM 0.5MG/2.5ML NEB PRN ×2 (08:10→20:52)
[2020-08-12] MEDS: ARFORMOTEROL TARTRATE 15 MCG/2 ML VIAL.NEB NEB SCH ×2 (08:10→20:00)
[2020-08-12] MEDS ORDERED: IPRATROPIUM BROM 0.5MG/2.5ML ONE ×2 (08:17→21:03)
[2020-08-12] MEDS: SPIRONOLACTONE 25 MG TABLET PO SCH (08:34)
--- NOTE | 2020-08-12 08:59 | ECHO ---
HEIGHT: 6 ft 0 in WEIGHT: 222 lb 6.4 oz DATE OF STUDY: 08/11/[address]: Gaby Pino MD 2-DIMENSIONAL: YES M.MODE: YES DOPPLER: YES COLOR FLOW: YES TDS: YES PORTABLE: YES DEFINITY: NO BUBBLE STUDY: NO DIAGNOSIS: CONGESTIVE HEART FAILURE CARDIAC HISTORY: CATHERIZATION: YES SURGERY: NO PROSTHETIC VALVE: NO PACEMAKER: YES MEASUREMENTS (cm) DIASTOLIC (NORMALS) SYSTOLIC (NORMALS) IVSd 1.1 (0.6-1.2) LA Diam (1.9-4.0) LVEF 81% LVIDd 3.7 (3.5-5.7) LVIDs 1.9 (2.0-3.5) %FS 49% LVPWd 1.2 (0.6-1.2) Ao Diam 3.0 (2.0-3.7) 2 DIMENSIONAL ASSESSMENT: RIGHT ATRIUM: NORMAL LEFT ATRIUM: ENLARGED RIGHT VENTRICLE: NORMAL LEFT VENTRICLE: NORMAL TRICUSPID VALVE: NORMAL MITRAL VALVE: MITRAL ANNULAR CALCIFICATION PULMONIC VALVE: NORMAL AORTIC VALVE: NORMAL PERICARDIAL EFFUSION: NONE AORTIC ROOT: NORMAL LEFT VENTRICULAR WALL MOTION: NORMAL. DOPPLER/COLOR FLOW: SEE BELOW. COMMENTS: HYPERDYNAMIC LEFT VENTRICLE WITH EJECTION FRACTION OF GREATER THAN 70%, NORMAL WALL MOTION. SEVERE MITRAL STENOSIS, MILD MITRAL REGURGITATION, CALCIFIED MITRAL VALVE. LEFT ATRIAL ENLARGEMENT. MILD AORTIC INSUFFIENCY. TECHNOLOGIST: ROSALBA VILLALTA
[2020-08-12] MEDS ORDERED: ENSURE HIGH PROTEIN 237 ML CAN PO PRN (11:10)
--- NOTE | 2020-08-12 11:57 | P.PN ---
Subjective Date of Service: 08/12/20 Primary Care Provider: Dr. Lee, Cardiology-Dr. Garrett Chief Complaint: Respiratory failure Subjective: Improving (Patient is improving he can tolerate being off BiPAP still short of breath) Review of Systems General: Weakness Eyes: Redness Respiratory: Shortness of Breath Physical Examination - Vital Signs Temperature: 97.3 F Blood Pressure: 137/75 Pulse: 85 Respirations: 24 Pulse Ox (%): 99 - Physical Exam General: Alert, Oriented x3, Moderate distress Respiratory: Crackles/rales Cardiovascular: No edema, Regular rate/rhythm - Studies Microbiology Data (last 24 hrs): 08/09/20 22:23 Clean Catch Urine [place] Count - Final No growth. 08/09/20 22:23 Clean Catch Urine - Final No growth. Medications List Reviewed: Yes Assessment & Plan - Problems (Diagnosis) (1) Respiratory failure Current Visit: Yes Status: Acute Plan: Respiratory failure persistent bilateral opacities echocardiogram shows severe mitral stenosis labs reviewed reduce dose of Solu-Medrol blood gases shows hypoxemia and hypercapnia chest x-ray no significant change patient has been in negative fluid balance ventricular function is hyper done change to p.o. cephalosporin head and Zithromax blood sugars elevated stable to transfer to the floor Qualifiers: Chronicity: acute
[2020-08-12] MEDS ORDERED: FUROSEMIDE 40 MG/4 ML VIAL IV ONE (13:02)
--- NOTE | 2020-08-12 18:33 | P.PN ---
Subjective Date of Service: 08/12/20 Primary Care Provider: Dr. Lee, Cardiology-Dr. Garrett Chief Complaint: Respiratory failure Still short of breath, and anxious, Seen on bipap. Review of Systems 10-point ROS is otherwise unremarkable Physical Examination - Vital Signs Temperature: 98.3 F Blood Pressure: 120/63 Pulse: 98 Respirations: 21 Pulse Ox (%): 98 - Physical Exam General: Alert, In no apparent distress Neck: Supple, JVD not distended Respiratory: Diminished Cardiovascular: Edema Capillary refill: <2 Seconds Gastrointestinal: Normal bowel sounds, No tenderness Musculoskeletal: No tenderness Integumentary: No rashes Neurological: Normal speech, Normal tone, Normal affect - Studies Microbiology Data (last 24 hrs): 08/09/20 22:23 Clean Catch Urine [place] Count - Final No growth. 08/09/20 22:23 Clean Catch Urine - Final No growth. Medications List Reviewed: Yes Assessment & Plan Physician Review Additional Text: Problems Acute hypoxic respiratory failure secondary to chf exacerbation, copd exacerbation CKD progression vs mild REBECA mostly cardiorenal, however suspect creatinine at baseline Hypervolemia Plan Agree with current plan Volume control with lasix 40mg iv q 12h INR likely elevated due to eliquis. Continue spironolactone as well for elio antagonist Agree with treatment for copd exacerbation At this time, would hold off on any nsaids, fleece enemas. Renal ultrasound unremarkable. Thank you for this interesting consult. Will continue to follow.
[2020-08-12] MEDS: RIVAROXABAN 20 MG TABLET PO SCH (20:24)
[2020-08-12] MEDS: ROPINIROLE HCL 1 MG TAB PO SCH (20:24)
[2020-08-12] MEDS ORDERED: TEMAZEPAM 15 MG CAP PO PRN (20:30)
[2020-08-12] MEDS: CEFUROXIME 250 MG TAB PO SCH (20:49)
[2020-08-12] MEDS ORDERED: TEMAZEPAM 15 MG CAP ONE (21:01)
[2020-08-12] MEDS ORDERED: METOPROLOL TAR 50 MG TAB ONE (21:16)
[2020-08-13] MEDS: TRAMADOL HCL 50 MG TAB PO PRN (01:35)
[2020-08-13] MEDS ORDERED: TRAMADOL HCL 50 MG TAB ONE (01:52)
[2020-08-13] MEDS ORDERED: IPRATROPIUM BROM 0.5MG/2.5ML ONE (02:23)
[2020-08-13] MEDS ORDERED: WATER FOR INJ,STERILE 10 ML IM PRN (04:12)
[2020-08-13] MEDS ORDERED: ZIPRASIDONE MESYLA 20 MG/VIAL IM ONE ×2 (04:13→04:27)
[2020-08-13] MEDS ORDERED: WATER FOR INJ,STERILE 10 ML ONE (04:27)
[2020-08-13 05:50] LABS: Absolute Lymphocytes (CBC) 0.3 K/uL (0.7-4.9); Basophils % 0.1 % (0-1.3); Hematocrit 34.5 % (39.6-49.0); Lymphocytes % 1.8 % (15.3-44.8); MPV 9.3 fL (7.6-11.3)
[2020-08-13 06:11] LABS: Albumin 3.1 g/dL (3.4-5.0); Bilirubin Total 0.8 mg/dL (0.2-1.0); C-Reactive Protein 33.7 mg/L (<3.00); Ferritin 299.1 ng/mL (26-388); Magnesium 2.8 mg/dL (1.8-2.4); Protein, Total 6.9 g/dL (6.4-8.2)
[2020-08-13] MEDS: INSULIN -REGULAR HUMAN 50 UNIT/0.5 ML ML SQ SCH ×4 (07:30→20:56)
--- NOTE | 2020-08-13 08:00 | P.PN ---
Date of Service: 08/12/20 Subjective Patient with no significant new changes. He still is remaining a little tachypneic. He has alternating BiPAP and wall oxygen at 4 L/min. Clinically he appears to be doing well. Okay to transfer upstairs if okay with Pulmonary. Review of Systems 10-point ROS is otherwise unremarkable Physical Examination - Vital Signs Reviewed - Physical Exam General: Alert, In no apparent distress, Oriented x3 Respiratory: Diminished, Crackles/rales, Expiratory wheezes Cardiovascular: Regular rate/rhythm, Normal S1 S2 Gastrointestinal: Normal bowel sounds, Soft and benign, Non-distended, No tenderness Musculoskeletal: No clubbing, Swelling, Tenderness Integumentary: Other (Patient w/bruising throughout) Neurological: Sensation intact, Cranial nerves 3-12 intact Assessment & Plan - Problems (Diagnosis) (1) CHF (congestive heart failure), NYHA class II Current Visit: No Status: Acute (2) COPD exacerbation Current Visit: No Status: Acute (3) CVA (cerebral vascular accident) Onset Date: 01/08/16 Current Visit: No Status: Acute Qualifiers: CVA mechanism: unspecified Qualified Code(s): I63.9 - Cerebral infarction, unspecified (4) Endocarditis and heart valve disorders in diseases classified elsewhere Current Visit: No Status: Acute (5) Leg edema Current Visit: No Status: Acute (6) H/O aortic valve replacement Current Visit: No Status: Chronic (7) HTN (hypertension) Onset Date: 01/08/16 Current Visit: No Status: Chronic Qualifiers: Hypertension type: essential hypertension Qualified Code(s): I10 - Essential (primary) hypertension (8) Hyperlipidemia Onset Date: 01/08/16 Current Visit: No Status: Chronic Qualifiers: Hyperlipidemia type: unspecified Qualified Code(s): E78.5 - Hyperlipidemia, unspecified (9) COPD (chronic obstructive pulmonary disease) Current Visit: No Status: Suspected Qualifiers: COPD type: chronic bronchitis - Plan 1. Echocardiogram with severe mom mitral stenosis. EF was hyperdynamic at 70- 80%. Spoke with Cardiology and they will evaluate the patient 2. Continue with diuresing patient at this time; continue with antibiotic therapy. Patient with diffuse infiltrates bilaterally. 3. Patient is clinically a little anxious. 4. Cardiology consultation appreciated 5. Possible transfer to general medical floor if okay with Pulmonary 6. Strict I's and O's 7. Repeat CXR 8. Daily weights 9. Education regarding diet and treatment of congestive heart failure Discharge Plan: Home - Advance Directives Does patient have a Living Will: No Does patient have a Durable POA for Healthcare: No Critical Care: No Time Spent Managing PTS Care (In Minutes): 30
--- NOTE | 2020-08-13 08:15 | P.PN ---
Date of Service: 08/13/20 Subjective Patient was agitated. Patient was given multiple medications last night. He was also found to have multiple medications in his room. It was found to be Requip. Patient denies taking any of the medications. That along with the JOVANY non in the [place] and may very lethargic this morning. Spoke with Cardiology and will try to initiate transfer to a tertiary care facility. Review of Systems 10-point ROS is otherwise unremarkable Physical Examination - Vital Signs Reviewed - Physical Exam General: Alert, In no apparent distress, Oriented x3 Respiratory: Diminished, Crackles/rales, Expiratory wheezes Cardiovascular: Regular rate/rhythm, Normal S1 S2 Gastrointestinal: Normal bowel sounds, Soft and benign, Non-distended, No tenderness Musculoskeletal: No clubbing, Swelling, Tenderness Integumentary: Other (Patient w/bruising throughout) Neurological: Sensation intact, Cranial nerves 3-12 intact Assessment & Plan - Problems (Diagnosis) (1) CHF (congestive heart failure), NYHA class II Current Visit: No Status: Acute (2) COPD exacerbation Current Visit: No Status: Acute (3) CVA (cerebral vascular accident) Onset Date: 01/08/16 Current Visit: No Status: Acute Qualifiers: CVA mechanism: unspecified Qualified Code(s): I63.9 - Cerebral infarction, unspecified (4) Endocarditis and heart valve disorders in diseases classified elsewhere Current Visit: No Status: Acute (5) Leg edema Current Visit: No Status: Acute (6) H/O aortic valve replacement Current Visit: No Status: Chronic (7) HTN (hypertension) Onset Date: 01/08/16 Current Visit: No Status: Chronic Qualifiers: Hypertension type: essential hypertension Qualified Code(s): I10 - Essential (primary) hypertension (8) Hyperlipidemia Onset Date: 01/08/16 Current Visit: No Status: Chronic Qualifiers: Hyperlipidemia type: unspecified Qualified Code(s): E78.5 - Hyperlipidemia, unspecified (9) COPD (chronic obstructive pulmonary disease) Current Visit: No Status: Suspected Qualifiers: COPD type: chronic bronchitis - Plan 1. Echocardiogram with severe mitral stenosis. EF was hyperdynamic at 70-80%. Spoke with Cardiology and they will evaluate the patient 2. Continue with diuresing patient at this time; continue with antibiotic therapy. Patient with diffuse infiltrates bilaterally. 3. Patient is clinically a little anxious. Started anxiolytics but will hold with his mentation being off in all the medication he received 4. Cardiology consultation appreciated 5. Possible transfer to general medical floor if okay with Pulmonary 6. Strict I's and O's 7. Repeat CXR 8. Daily weights 9. Education regarding diet and treatment of congestive heart failure Discharge Plan: Home - Advance Directives Does patient have a Living Will: No Does patient have a Durable POA for Healthcare: No Critical Care: No Time Spent Managing PTS Care (In Minutes): 30
[2020-08-13] MEDS: POTASSIUM CL SA 10 MEQ TAB PO SCH ×2 (08:16→17:33)
[2020-08-13] MEDS: PANTOPRAZOLE 40 MG INJ IVP SCH ×2 (08:17→20:38)
[2020-08-13] MEDS: MULTIVITAMIN TAB PO SCH (08:17)
[2020-08-13] MEDS: ASCORBIC ACID 500 MG TABLET PO SCH ×4 (08:17→20:38)
[2020-08-13] MEDS: ZINC SULFATE 220 MG CAP PO SCH (08:17)
[2020-08-13] MEDS: GLIMEPIRIDE 2 MG TABLET PO SCH ×2 (08:17→17:34)
[2020-08-13] MEDS: VITAMIN D 1000 UNIT TAB PO SCH (08:17)
[2020-08-13] MEDS: THIAMINE HCL 100 MG TABLET PO SCH (08:17)
[2020-08-13] MEDS: METOPROLOL TAR 50 MG TAB PO SCH ×2 (08:18→20:38)
[2020-08-13] MEDS: METHYLPREDNISOLONE 40 MG INJ IV SCH (08:18)
[2020-08-13] MEDS: FUROSEMIDE 40 MG/4 ML VIAL IV SCH ×2 (08:18→20:39)
[2020-08-13] MEDS: ATORVASTATIN 20 MG TAB PO SCH (08:18)
[2020-08-13] MEDS ORDERED: ATORVASTATIN 20 MG TAB ONE (08:19)
[2020-08-13] MEDS ORDERED: THIAMINE HCL 100 MG TABLET ONE (08:19)
[2020-08-13] MEDS ORDERED: MULTIVITAMIN TAB PO ONE (08:19)
[2020-08-13] MEDS ORDERED: ZINC SULFATE 220 MG CAP ONE (08:19)
[2020-08-13] MEDS ORDERED: METOPROLOL TAR 50 MG TAB ONE ×2 (08:19→20:36)
[2020-08-13] MEDS: CYANOCOBALAMIN 1,000 MCG TAB SL SCH (08:19)
[2020-08-13] MEDS: CEFUROXIME 250 MG TAB PO SCH ×2 (08:20→20:37)
[2020-08-13] MEDS: SPIRONOLACTONE 25 MG TABLET PO SCH (08:20)
[2020-08-13] MEDS ORDERED: VITAMIN D 1000 UNIT TAB ONE ×2 (08:20→08:52)
[2020-08-13] MEDS ORDERED: ASCORBIC ACID 500 MG TABLET ONE ×4 (08:20→20:37)
[2020-08-13] MEDS ORDERED: POTASSIUM CL SA 10 MEQ TAB PO ONE ×2 (08:20→17:49)
[2020-08-13] MEDS ORDERED: FUROSEMIDE 40 MG/4 ML VIAL ONE ×2 (08:20→20:35)
[2020-08-13] MEDS ORDERED: METOPROLOL TARTRATE 5 MG/5 ML INJ IV ONE (08:20)
[2020-08-13] MEDS ORDERED: PANTOPRAZOLE 40 MG INJ ONE ×2 (08:20→20:36)
[2020-08-13] MEDS ORDERED: METHYLPREDNISOLONE 40 MG INJ ONE (08:20)
[2020-08-13] MEDS: AZITHROMYCIN 250 MG TAB PO SCH (08:36)
[2020-08-13] MEDS: METOPROLOL TARTRATE 5 MG/5 ML INJ IV STA ×2 (08:51→09:13)
[2020-08-13] MEDS ORDERED: AZITHROMYCIN 250 MG TAB ONE (08:52)
[2020-08-13] MEDS: ARFORMOTEROL TARTRATE 15 MCG/2 ML VIAL.NEB NEB SCH ×2 (09:11→21:00)
[2020-08-13 09:15] LABS: Platelet Estimate ADEQ; White Blood Cell Scan OK (OK)
[2020-08-13 09:16] LABS: Blood Morphology Comment NOT SEEN (NOT SEEN)
--- NOTE | 2020-08-13 12:25 | P.PN ---
Subjective Date of Service: 08/13/20 Primary Care Provider: Dr. Lee, Cardiology-Dr. Garrett Chief Complaint: Respiratory failure Subjective: Improving (Patient is still wheezing improving has severe mitral stenosis is requiring BiPAP objectively short of breath) Review of Systems General: Weakness Respiratory: Shortness of Breath Physical Examination - Vital Signs Temperature: 97.6 F Blood Pressure: 145/71 Pulse: 63 Respirations: 19 Pulse Ox (%): 96 - Physical Exam General: Alert, Moderate distress Respiratory: Expiratory wheezes Cardiovascular: No edema, Normal S1 S2 - Studies Microbiology Data (last 24 hrs): 08/09/20 22:23 Clean Catch Urine [place] Count - Final No growth. 08/09/20 22:23 Clean Catch Urine - Final No growth. Medications List Reviewed: Yes Assessment & Plan - Problems (Diagnosis) (1) Respiratory failure Current Visit: Yes Status: Acute Plan: Respiratory failure he still has significant bilateral opacities still very short of breath patient is on IV Lasix significant negative fluid balance creatinine is mildly elevated patient has severe mitral stenosis agree with transfer to [place] patient stable labs reviewed repeat nelson virus tests is negative at taper down on the steroid change to p.o. prednisone reviewed dose of IV Protonix change to p.o. Pepcid no active signs of bleeding oxygenation satisfactory vital signs stable Qualifiers: Chronicity: acute
[2020-08-13] MEDS: RIVAROXABAN 20 MG TABLET PO SCH (21:15)
[2020-08-13] MEDS: ROPINIROLE HCL 1 MG TAB PO SCH (21:16)
[2020-08-13] MEDS: predniSONE 20 MG TAB PO SCH (21:25)
[2020-08-13] MEDS: clonazePAM 0.5 MG TAB PO PRN (21:29)
[2020-08-13] MEDS ORDERED: predniSONE 20 MG TAB ONE (21:40)
[2020-08-13] MEDS ORDERED: clonazePAM 0.5 MG TAB ONE (21:41)
--- NOTE | 2020-08-14 06:50 | P.PN ---
Subjective Date of Service: 08/13/20 Primary Care Provider: Dr. Lee, Cardiology-Dr. Garrett Chief Complaint: Respiratory failure Shortness of breath ius improved, now maintained on nasal canula. Review of Systems 10-point ROS is otherwise unremarkable Physical Examination - Vital Signs Temperature: 97 F Blood Pressure: 130/68 Pulse: 62 Respirations: 24 Pulse Ox (%): 100 - Physical Exam General: Alert, In no apparent distress HEENT: Atraumatic, PERRLA, EOMI Neck: Supple, JVD not distended Respiratory: Diminished Cardiovascular: Edema Capillary refill: <2 Seconds Gastrointestinal: Normal bowel sounds, No tenderness Musculoskeletal: No tenderness Integumentary: No rashes Urinary: Bustillos catheter - Studies Medications List Reviewed: Yes Assessment & Plan Physician Review Additional Text: Problems Acute hypoxic respiratory failure secondary to chf exacerbation, copd exacerbation CKD progression vs mild REBECA mostly cardiorenal, however suspect creatinine at baseline Hypervolemia Plan Agree with current plan Volume control with lasix 40mg iv q 12h. Creatinine slightly elevated which is ok, will continue to monitor, no need to change dose of diuretic as pt is still hypervolemic. INR likely elevated due to eliquis. Continue spironolactone as well for elio antagonist Agree with treatment for copd exacerbation At this time, would hold off on any nsaids, fleece enemas. Will continue to follow.
[2020-08-14] MEDS: INSULIN -REGULAR HUMAN 50 UNIT/0.5 ML ML SQ SCH ×4 (07:30→20:28)
[2020-08-14] MEDS ORDERED: ATORVASTATIN 20 MG TAB ONE (07:36)
[2020-08-14] MEDS ORDERED: ZINC SULFATE 220 MG CAP ONE (07:36)
[2020-08-14] MEDS ORDERED: MULTIVITAMIN TAB PO ONE (07:36)
[2020-08-14] MEDS ORDERED: THIAMINE HCL 100 MG TABLET ONE ×2 (07:36→08:49)
[2020-08-14] MEDS ORDERED: AZITHROMYCIN 250 MG TAB ONE (07:37)
[2020-08-14] MEDS ORDERED: VITAMIN D 1000 UNIT TAB ONE (07:37)
[2020-08-14] MEDS ORDERED: METOPROLOL TAR 25 MG TAB ONE (07:37)
[2020-08-14] MEDS ORDERED: ASCORBIC ACID 500 MG TABLET ONE ×4 (07:38→20:34)
[2020-08-14] MEDS ORDERED: FUROSEMIDE 40 MG/4 ML VIAL ONE ×2 (07:38→20:44)
[2020-08-14] MEDS ORDERED: PANTOPRAZOLE 40 MG INJ ONE ×2 (07:38→20:35)
[2020-08-14] MEDS ORDERED: POTASSIUM CL SA 10 MEQ TAB PO ONE ×2 (07:38→17:42)
[2020-08-14] MEDS ORDERED: predniSONE 20 MG TAB ONE ×2 (07:38→20:29)
[2020-08-14] MEDS: ARFORMOTEROL TARTRATE 15 MCG/2 ML VIAL.NEB NEB SCH ×2 (08:00→20:43)
[2020-08-14] MEDS: PANTOPRAZOLE 40 MG INJ IVP SCH ×2 (08:26→20:20)
[2020-08-14] MEDS: FUROSEMIDE 40 MG/4 ML VIAL IV SCH ×2 (08:26→20:27)
[2020-08-14] MEDS: ATORVASTATIN 20 MG TAB PO SCH (08:26)
[2020-08-14] MEDS: GLIMEPIRIDE 2 MG TABLET PO SCH ×2 (08:27→17:27)
[2020-08-14] MEDS: THIAMINE HCL 100 MG TABLET PO SCH (08:27)
[2020-08-14] MEDS: VITAMIN D 1000 UNIT TAB PO SCH (08:27)
[2020-08-14] MEDS: ZINC SULFATE 220 MG CAP PO SCH (08:27)
[2020-08-14] MEDS: POTASSIUM CL SA 10 MEQ TAB PO SCH ×2 (08:27→17:27)
[2020-08-14] MEDS: CYANOCOBALAMIN 1,000 MCG TAB SL SCH (08:28)
[2020-08-14] MEDS: ASCORBIC ACID 500 MG TABLET PO SCH ×4 (08:28→20:21)
[2020-08-14] MEDS: predniSONE 20 MG TAB PO SCH ×2 (08:28→20:23)
[2020-08-14] MEDS: SPIRONOLACTONE 25 MG TABLET PO SCH (08:29)
[2020-08-14] MEDS: MULTIVITAMIN TAB PO SCH (08:29)
[2020-08-14] MEDS: CEFUROXIME 250 MG TAB PO SCH ×2 (08:29→20:22)
[2020-08-14] MEDS: AZITHROMYCIN 250 MG TAB PO SCH (08:30)
[2020-08-14] MEDS: METOPROLOL TAR 50 MG TAB PO SCH ×2 (08:30→20:22)
--- NOTE | 2020-08-14 10:40 | RAD REPORT ---
EXAM DESCRIPTION: Thorax Wo Con 08/10/2020 1:33 AM TRANSPORT AIDE CLINICAL HISTORY: 70 years, Male, SOB COMPARISON: 07/17/2020 - 07/02/2017 TECHNIQUE: Multiple transaxial tomograms of the chest were obtained from the lung apices through the adrenal glands utilizing 5 mm slice thickness at 15 mm interval reconstruction without the administr ation of IV contrast. Multiple reformats in the sagittal and coronal plane were generated and reviewe d. Individual dose optimization technique, Automated exposure Control was utilized for the performed procedure. FINDINGS: In comparison with prior stud has available the presence of bilateral upper and lower lobe peripheral groundglass opacities within both lungs, with interlobular septal thickening-crazy paving , suspicious for COVID-19 pneumonia. The trachea mainstem bronchus demonstrate to be normal. There is trace of pleural effusion within the right major fissure superior aspect. Again there is a retained of subpleural thickening posterior segment of the right lower lobe with minimal calcification perhaps suggesting prior pleurodesis. The thoracic aorta demonstrates atherosclerotic disease. There is status post aortic valve placement. There is mitral annular calcification. There is a pacemaker in place. There are subclinical lymph no lucille within the mediastinum most likely reactive in nature. There is no significant mediastinal and/or hilar lymphadenopathy. The axillary regions demonstrate to be clear. The bone windows demonstrate n o significant skeletal lesions. Grossly the unopacified portions of the upper abdomen demonstrate to be unremarkable IMPRESSION: Findings suspicious for COVID-19 pneumonia. Other processes such as influenza pneumonia and organizing pneumonia as cab be seen with drug toxicity and connective tissue disease can cause a similar imaging pattern. (reference: https://pubs.rsna.org/doi/full/10.1148/ryct.7465770334). Status post aortic valve replacement. Pacemaker in place Trace of loculated right pleural effusion. Pleural thickening with minimal calcification inferior posterior aspect perhaps suggesting prior pleu rodesis. Electronically signed by: Kevin Faustin MD 08/10/2020 1:38 AM TRANSPORT AIDE Due to temporary technical issues with the PACS/Fluency reporting system, reports are being signed by the in house radiologist without review as a courtesy to ensure prompt reporting. The interpreting r adiologist is fully responsible for the content of the report.
[2020-08-14] MEDS ORDERED: INSULIN -REGULAR HUMAN 50 UNIT/0.5 ML ML ONE (17:41)
[2020-08-14] MEDS ORDERED: CEFUROXIME 250 MG TAB ONE (20:16)
[2020-08-14] MEDS ORDERED: FUROSEMIDE 20 MG/ 2ML VIAL ONE (20:19)
[2020-08-14] MEDS: ROPINIROLE HCL 1 MG TAB PO SCH (20:21)
[2020-08-14] MEDS: clonazePAM 0.5 MG TAB PO PRN (20:21)
[2020-08-14] MEDS: RIVAROXABAN 20 MG TABLET PO SCH (20:23)
[2020-08-14] MEDS ORDERED: METOPROLOL TAR 50 MG TAB ONE (20:32)
[2020-08-14] MEDS ORDERED: clonazePAM 0.5 MG TAB ONE (20:34)
[2020-08-15] MEDS ORDERED: ACETAMINOPHEN 500 MG TAB ONE (02:08)
[2020-08-15] MEDS: IPRATROPIUM BROM 0.5MG/2.5ML NEB PRN (03:40)
[2020-08-15] MEDS ORDERED: LEVALBUTEROL 0.63 MG/3 ML NEB ONE (03:55)
[2020-08-15] MEDS ORDERED: IPRATROPIUM BROM 0.5MG/2.5ML ONE (03:55)
[2020-08-15] MEDS: INSULIN -REGULAR HUMAN 50 UNIT/0.5 ML ML SQ SCH ×4 (07:30→21:10)
[2020-08-15] MEDS ORDERED: POTASSIUM CL SA 10 MEQ TAB PO ONE (08:30)
[2020-08-15] MEDS ORDERED: ATORVASTATIN 10 MG TAB ONE (08:31)
[2020-08-15] MEDS ORDERED: ZINC SULFATE 220 MG CAP ONE (08:36)
[2020-08-15] MEDS: THIAMINE HCL 100 MG TABLET PO SCH (08:36)
[2020-08-15] MEDS: PANTOPRAZOLE 40 MG INJ IVP SCH (08:36)
[2020-08-15] MEDS: FUROSEMIDE 40 MG/4 ML VIAL IV SCH ×2 (08:36→21:07)
[2020-08-15] MEDS ORDERED: METOPROLOL TAR 50 MG TAB ONE (08:36)
[2020-08-15] MEDS ORDERED: MULTIVITAMIN TAB PO ONE (08:36)
[2020-08-15] MEDS ORDERED: AZITHROMYCIN 250 MG TAB ONE (08:37)
[2020-08-15] MEDS: SPIRONOLACTONE 25 MG TABLET PO SCH (08:37)
[2020-08-15] MEDS: CEFUROXIME 250 MG TAB PO SCH ×2 (08:37→21:00)
[2020-08-15] MEDS ORDERED: FUROSEMIDE 40 MG TABLET ONE (08:37)
[2020-08-15] MEDS: MULTIVITAMIN TAB PO SCH (08:37)
[2020-08-15] MEDS ORDERED: VITAMIN D 1000 UNIT TAB ONE (08:37)
[2020-08-15] MEDS ORDERED: THIAMINE HCL 100 MG TABLET ONE (08:37)
[2020-08-15] MEDS: GLIMEPIRIDE 2 MG TABLET PO SCH ×2 (08:37→16:54)
[2020-08-15] MEDS ORDERED: predniSONE 20 MG TAB ONE (08:37)
[2020-08-15] MEDS: POTASSIUM CL SA 10 MEQ TAB PO SCH ×2 (08:37→16:54)
[2020-08-15] MEDS ORDERED: FUROSEMIDE 40 MG/4 ML VIAL ONE (08:38)
[2020-08-15] MEDS: VITAMIN D 1000 UNIT TAB PO SCH (08:38)
[2020-08-15] MEDS: METOPROLOL TAR 50 MG TAB PO SCH ×2 (08:38→21:11)
[2020-08-15] MEDS ORDERED: PANTOPRAZOLE 40 MG INJ ONE (08:38)
[2020-08-15] MEDS ORDERED: ASCORBIC ACID 500 MG TABLET ONE ×2 (08:38→12:43)
[2020-08-15] MEDS: ASCORBIC ACID 500 MG TABLET PO SCH ×4 (08:38→21:07)
[2020-08-15] MEDS: ATORVASTATIN 20 MG TAB PO SCH (08:39)
[2020-08-15] MEDS: predniSONE 20 MG TAB PO SCH ×2 (08:40→21:07)
[2020-08-15] MEDS: ZINC SULFATE 220 MG CAP PO SCH (08:40)
[2020-08-15] MEDS: CYANOCOBALAMIN 1,000 MCG TAB SL SCH (08:40)
[2020-08-15] MEDS: AZITHROMYCIN 250 MG TAB PO SCH (08:41)
[2020-08-15] MEDS ORDERED: HYDRALAZINE HCL 20 MG/ML VIAL ONE (10:25)
[2020-08-15] MEDS: ARFORMOTEROL TARTRATE 15 MCG/2 ML VIAL.NEB NEB SCH ×2 (10:27→19:20)
[2020-08-15] MEDS: TRAMADOL HCL 50 MG TAB PO PRN (11:37)
[2020-08-15] MEDS ORDERED: TRAMADOL HCL 50 MG TAB ONE (11:53)
[2020-08-15 11:58] LABS: Potassium 4.2 mmol/L (3.5-5.1)
--- NOTE | 2020-08-15 13:23 | P.PN ---
Subjective Date of Service: 08/15/20 Primary Care Provider: Dr. Lee, Cardiology-Dr. Garrett Chief Complaint: Respiratory failure Subjective: Improving (Patient has improved significantly much better not requiring BiPAP) Review of Systems General: Weakness Respiratory: Shortness of Breath Physical Examination - Vital Signs Temperature: 98.2 F Blood Pressure: 102/72 Pulse: 68 Respirations: 24 Pulse Ox (%): 94 - Physical Exam General: Alert, Oriented x3 Respiratory: Clear to auscultation bilaterally, Diminished Cardiovascular: No edema, Regular rate/rhythm - Studies Microbiology Data (last 24 hrs): 08/09/20 22:23 Blood - Blood Aerobic Blood Culture - Final No growth in 5 days. 08/09/20 22:23 Blood - Blood Anaerobic Blood Culture - Final No growth in 5 days. 08/09/20 21:42 Blood - Blood Aerobic Blood Culture - Final No growth in 5 days. 08/09/20 21:42 Blood - Blood Anaerobic Blood Culture - Final No growth in 5 days. Medications List Reviewed: Yes Assessment & Plan - Problems (Diagnosis) (1) Respiratory failure Status: Acute Plan: Respiratory failure patient has improved significantly stable to be transferred to the floor chest x-ray ordered no evidence of sepsis blood pressure is slightly low he is doing much better continue with dose of Lasix as per Nephrology continue with bronchodilators and steroid satting 96% on 2 L depending on the x-ray will decrease the dose of his Lasix and steroids the scheduled to be transferred to [facility] due to severe mitral stenosis Qualifiers: Chronicity: acute
--- NOTE | 2020-08-15 14:12 | RAD REPORT ---
EXAM DESCRIPTION: Liz Single View08/15/2020 1:59 pm CLINICAL HISTORY: Respiratory failure COMPARISON: August 12, 2020 FINDINGS: Partial resolution bilateral pulmonary opacities. Heart remains enlarged. Postsurgical ch anges involve the chest. Pacemaker leads in place IMPRESSION: Moderate improved in bilateral pulmonary opacities
[2020-08-15 18:51] VITALS: BMI 29.5
[2020-08-15] MEDS: RIVAROXABAN 20 MG TABLET PO SCH (21:07)
[2020-08-15] MEDS: ROPINIROLE HCL 1 MG TAB PO SCH (21:09)
[2020-08-15] MEDS: clonazePAM 0.5 MG TAB PO PRN (22:23)
[2020-08-16] MEDS: IPRATROPIUM BROM 0.5MG/2.5ML NEB PRN (01:55)
--- NOTE | 2020-08-16 06:54 | P.PN ---
Subjective Date of Service: 08/15/20 Primary Care Provider: Dr. Lee, Cardiology-Dr. Garrett Chief Complaint: Respiratory failure Shortness of breath ius improved, now maintained on 3l nasal canula. Review of Systems 10-point ROS is otherwise unremarkable Physical Examination - Vital Signs Temperature: 96.8 F Blood Pressure: 118/64 Pulse: 60 Respirations: 19 Pulse Ox (%): 98 - Physical Exam General: Alert, In no apparent distress HEENT: Atraumatic, PERRLA, EOMI Neck: Supple, JVD not distended Respiratory: Diminished Cardiovascular: Regular rate/rhythm, Normal S1 S2 Capillary refill: <2 Seconds Gastrointestinal: Normal bowel sounds, No tenderness Musculoskeletal: No tenderness Integumentary: No rashes Neurological: Normal speech, Normal tone, Normal affect - Studies Medications List Reviewed: Yes Assessment & Plan Physician Review Additional Text: Problems Acute hypoxic respiratory failure secondary to chf exacerbation, copd exacerbation CKD progression vs mild REBECA mostly cardiorenal, however suspect creatinine at baseline Hypervolemia Plan Agree with current plan Volume control with lasix 40mg iv q 12h. Continue until off oxygen then can switch to oral lasix at lasix 40mg po bid as well as spirnolactone Continue treatment for copd exacerbation At this time, would hold off on any nsaids, fleece enemas. Will continue to follow.
[2020-08-16] MEDS: INSULIN -REGULAR HUMAN 50 UNIT/0.5 ML ML SQ SCH ×2 (07:30→11:27)
[2020-08-16] MEDS: ARFORMOTEROL TARTRATE 15 MCG/2 ML VIAL.NEB NEB SCH (07:41)
[2020-08-16] MEDS: CYANOCOBALAMIN 1,000 MCG TAB SL SCH (08:47)
[2020-08-16] MEDS: POTASSIUM CL SA 10 MEQ TAB PO SCH (08:48)
[2020-08-16] MEDS: METOPROLOL TAR 50 MG TAB PO SCH (08:48)
[2020-08-16] MEDS: ASCORBIC ACID 500 MG TABLET PO SCH ×2 (08:49→12:20)
[2020-08-16] MEDS: VITAMIN D 1000 UNIT TAB PO SCH (08:49)
[2020-08-16] MEDS: ATORVASTATIN 20 MG TAB PO SCH (08:49)
[2020-08-16] MEDS: AZITHROMYCIN 250 MG TAB PO SCH (08:49)
[2020-08-16] MEDS: ZINC SULFATE 220 MG CAP PO SCH (08:49)
[2020-08-16] MEDS: predniSONE 20 MG TAB PO SCH (08:49)
[2020-08-16] MEDS: SPIRONOLACTONE 25 MG TABLET PO SCH (08:49)
[2020-08-16] MEDS: MULTIVITAMIN TAB PO SCH (08:50)
[2020-08-16] MEDS: GLIMEPIRIDE 2 MG TABLET PO SCH (08:50)
[2020-08-16] MEDS: CEFUROXIME 250 MG TAB PO SCH (08:50)
[2020-08-16] MEDS: FUROSEMIDE 40 MG/4 ML VIAL IV SCH (08:51)
[2020-08-16] MEDS: THIAMINE HCL 100 MG TABLET PO SCH (08:51)
--- NOTE | 2020-08-16 11:01 | PN ---
Date of Progress Note: 08/11/2020 Subjective: Mr. Wylie is very well known to us. He has a history of congestive heart failure, which is chronic with acute diastolic exacerbation. He has a history of aortic valve replacement. Debra murphy has a history of moderate mitral stenosis, this is one of his multiple admissions over the last tue. He has a history of COPD as well as asbestosis, hypertension, history of CVA. He came in with f ever and lower extremity edema. He has been taking Zaroxolyn. Has a history of atrial fibrillation as well. Dr. Galdamez thought the patient had a combination of COPD and CHF and pneumonia as well. He is COVID negative. Echocardiogram was done showing severe mitral stenosis. We will attempt transfe rring the patient for a tertiary care for possible mitral stenosis surgery and maybe even more invasi ve workup such as transesophageal echocardiography. I would continue his present regimen for now. T he case was discussed with Dr. Pino. We will continue to follow him. We will be available for [email or web address] if the need arises. Dr. Preston Sagastume in [place] [facility] has been contacted and transfer has been initiated. [email or web address] Voice ID: [id number] Report ID: [id number]
[2020-08-16 11:39] VITALS: O2SAT 96
--- NOTE | 2020-08-16 12:11 | P.PN ---
Date of Service: 08/14/20 Subjective Patient appears to be doing much better today. He slept much better last night. Spoke with Cardiology and arranging for transfer to tertiary care facility. Patient may need mitral valve replaced but he needs a GERRI to further evaluate. Patient denies any new complaints. Clinical symptoms continued to improve. Review of Systems 10-point ROS is otherwise unremarkable Physical Examination - Vital Signs Reviewed - Physical Exam General: Alert, In no apparent distress, Oriented x3 Respiratory: Basilar crackles Cardiovascular: Systolic ejection murmur II/ Gastrointestinal: Normal bowel sounds, Soft and benign, Non-distended, No tenderness Musculoskeletal: No clubbing, Swelling, Tenderness Integumentary: Bruising but no other abnormalities Neurological: Sensation intact, Cranial nerves 3-12 intact Assessment & Plan - Problems (Diagnosis) (1) CHF (congestive heart failure), NYHA class II Current Visit: No Status: Acute (2) COPD exacerbation Current Visit: No Status: Acute (3) CVA (cerebral vascular accident) Onset Date: 01/08/16 Current Visit: No Status: Acute Qualifiers: CVA mechanism: unspecified Qualified Code(s): I63.9 - Cerebral infarction, unspecified (4) Endocarditis and heart valve disorders/severe mitral valve stenosis Current Visit: No Status: Acute (5) Leg edema Current Visit: No Status: Acute (6) H/O aortic valve replacement Current Visit: No Status: Chronic (7) HTN (hypertension) Onset Date: 01/08/16 Current Visit: No Status: Chronic Qualifiers: Hypertension type: essential hypertension Qualified Code(s): I10 - Essential (primary) hypertension (8) Hyperlipidemia Onset Date: 01/08/16 Current Visit: No Status: Chronic Qualifiers: Hyperlipidemia type: unspecified Qualified Code(s): E78.5 - Hyperlipidemia, unspecified (9) COPD (chronic obstructive pulmonary disease) Current Visit: No Status: Suspected Qualifiers: COPD type: chronic bronchitis - Plan Arrange for transfer to a tertiary care facility as echocardiogram revealed severe mitral valve stenosis and recurrent admissions for heart failure and volume overloaded. Continue with plan of care as mentioned below. 1. Echocardiogram with severe mitral stenosis. EF was hyperdynamic at 70-80%. Spoke with Cardiology and they will evaluate the patient 2. Continue with diuresing patient at this time; continue with antibiotic thera py. Patient with diffuse infiltrates bilaterally. 3. Patient is clinically a little anxious. Started anxiolytics but will hold with his mentation being off in all the medication he received 4. Cardiology consultation appreciated 5. Possible transfer to general medical floor if okay with Pulmonary 6. Strict I's and O's 7. Repeat CXR in 48 hr 8. Daily weights 9. Education regarding diet and treatment of congestive heart failure
--- NOTE | 2020-08-16 12:15 | P.PN ---
Date of Service: 08/15/20 Subjective Spoke to family with at bedside. Updated the family and that it is possible that patient may not be able to be transfer to [facility] and may need to follow with Cardiology at the time of discharge for arrangements for outpatient intervention. Cardiology will come by and speak to family as well. Review of Systems 10-point ROS is otherwise unremarkable Physical Examination - Vital Signs Reviewed - Physical Exam General: Alert, In no apparent distress, Oriented x3 Respiratory: Minimal basilar crackles Cardiovascular: Systolic ejection murmur III/ Gastrointestinal: Normal bowel sounds, Soft and benign, Non-distended, No tenderness Musculoskeletal: No clubbing, Swelling, Tenderness Integumentary: Bruising but no other abnormalities Neurological: Sensation intact, Cranial nerves 3-12 intact Assessment & Plan - Problems (Diagnosis) (1) CHF (congestive heart failure), NYHA class II Current Visit: No Status: Acute (2) COPD exacerbation Current Visit: No Status: Acute (3) CVA (cerebral vascular accident) Onset Date: 01/08/16 Current Visit: No Status: Acute Qualifiers: CVA mechanism: unspecified Qualified Code(s): I63.9 - Cerebral infarction, unspecified (4) Endocarditis and heart valve disorders/severe mitral valve stenosis Current Visit: No Status: Acute (5) Leg edema Current Visit: No Status: Acute (6) H/O aortic valve replacement Current Visit: No Status: Chronic (7) HTN (hypertension) Onset Date: 01/08/16 Current Visit: No Status: Chronic Qualifiers: Hypertension type: essential hypertension Qualified Code(s): I10 - Essential (primary) hypertension (8) Hyperlipidemia Onset Date: 01/08/16 Current Visit: No Status: Chronic Qualifiers: Hyperlipidemia type: unspecified Qualified Code(s): E78.5 - Hyperlipidemia, unspecified (9) COPD (chronic obstructive pulmonary disease) Current Visit: No Status: Suspected Qualifiers: COPD type: chronic bronchitis - Plan Patient clinically doing well with no new complaints. Arrange for transfer to a tertiary care facility as echocardiogram revealed severe mitral valve stenosis and recurrent admissions for heart failure and volume overloaded. Continue with plan of care as mentioned below. 1. Echocardiogram with severe mitral stenosis. EF was hyperdynamic at 70-80%. Spoke with Cardiology and they have recommended transfer to a tertiary care facility but since we have not got acceptance in many days we may need to arrange for outpatient follow-up after we optimize patient's medical management. 2. Continue with diuresing patient at this time; continue with antibiotic therapy. Patient with diffuse infiltrates bilaterally. 3. Patient is clinically a little anxious. Started anxiolytics but will hold with his mentation being off in all the medication he received 4. Cardiology consultation appreciated 5. Possible transfer to general medical floor if okay with Pulmonary 6. Strict I's and O's 7. Education regarding mitral valve stenosis given the family 8. Daily weights 9. Education regarding diet and treatment of congestive heart failure
[2020-08-16 15:16] LABS: Absolute Lymphocytes (CBC) 0.6 K/uL (0.7-4.9); Basophils % 0.5 % (0-1.3); Hematocrit 33.9 % (39.6-49.0); Lymphocytes % 6.9 % (15.3-44.8); MPV 9.4 fL (7.6-11.3); RBC Red Blood Cell Count 3.87 M/uL (4.33-5.43)
[2020-08-16 15:29] LABS: Potassium 4.5 mmol/L (3.5-5.1)
[2020-08-16] MEDS: TRAMADOL HCL 50 MG TAB PO PRN (15:40)
--- NOTE | 2020-08-19 05:59 | P.DS ---
Discharge Date: 08/16/20 Primary Care Provider: Dr. Lee, Cardiology-Dr. Garrett Disposition: TRANSFER TO [facility] Discharge Condition: GOOD Reason for Admission: Respiratory failure Consultations: General surgeon Pulmonary Nephrology - Problems (1) CHF (congestive heart failure), NYHA class II Status: Acute (2) COPD exacerbation Status: Acute (3) CVA (cerebral vascular accident) Onset Date: 01/08/16 Status: Acute Qualifiers: CVA mechanism: unspecified Qualified Code(s): I63.9 - Cerebral infarction, unspecified (4) Endocarditis and heart valve disorders in diseases classified elsewhere Status: Acute (5) Leg edema Status: Acute (6) H/O aortic valve replacement Status: Chronic (7) HTN (hypertension) Onset Date: 01/08/16 Status: Chronic Qualifiers: Hypertension type: essential hypertension Qualified Code(s): I10 - Essential (primary) hypertension (8) Hyperlipidemia Onset Date: 01/08/16 Status: Chronic Qualifiers: Hyperlipidemia type: unspecified Qualified Code(s): E78.5 - Hyperlipidemia, unspecified (9) COPD (chronic obstructive pulmonary disease) Status: Suspected Qualifiers: COPD type: chronic bronchitis Brief History of Present Illness: patient is a 70-year-old gentleman who came into the hospital with volume overload. Patient was short of breath and fatigue. Patient came into the emergency room for further evaluation. In the Emergency room patient was diuresed. Patient will still tachypneic and brought into the hospital on a BiPAP. Patient was admitted to the ICu. Patient's COVID-19 Testing came back negative. However, in light of patient's bilateral infiltrates we will diurese aggressively and give antibiotic therapy as well. Hospital Course: Patient's echocardiogram reveals severe mitral stenosis. Plan was to transfer to a Tertiary care facility as [facility]. Continue with cardiothoracic evaluation. Patient is stable for transfer at this time. Vital Signs/Physical Exam: Temp Pulse Resp BP Pulse Ox 97.5 F 60 18 119/61 98 08/16/20 16:00 08/16/20 16:00 08/16/20 16:00 08/16/20 16:00 08/16/20 16:00 General: Alert, In no apparent distress, Oriented x3 Laboratory Data at Discharge: WBC 8.70 K/uL (4.3-10.9) D 08/16/20 15:06 Hgb 10.9 g/dL (13.6-17.9) L 08/16/20 15:06 Hct 33.9 % (39.6-49.0) L 08/16/20 15:06 Plt Count 156 K/uL (152-406) 08/16/20 15:06 PT 26.7 SECONDS (9.5-12.5) H 08/11/20 19:29 INR 2.30 08/11/20 19:29 Sodium 141 mmol/L (136-145) 08/16/20 15:06 Potassium 4.5 mmol/L (3.5-5.1) 08/16/20 15:06 BUN 30 mg/dL (7-18) H 08/16/20 15:06 Creatinine 1.05 mg/dL (0.55-1.3) 08/16/20 15:06 Glucose 282 mg/dL (74-106) H 08/16/20 15:06 Phosphorus 2.8 mg/dL (2.5-4.9) 08/12/20 05:31 Magnesium 3.0 mg/dL (1.8-2.4) H 08/14/20 06:47 Total Bilirubin 0.8 mg/dL (0.2-1.0) 08/13/20 05:30 AST 18 U/L (15-37) 08/13/20 05:30 ALT 26 U/L (12-78) 08/13/20 05:30 Alkaline Phosphatase 73 U/L (45-117) 08/13/20 05:30 Triglycerides 83 mg/dL (<150) 08/10/20 06:23 Cholesterol 134 mg/dL (<200) 08/10/20 06:23 HDL Cholesterol 51 mg/dL (40-60) 08/10/20 06:23 Cholesterol/HDL Ratio 2.63 08/10/20 06:23 Home Medications: RX: Ropinirole HCl 12 mg PO BEDTIME 01/06/16 RX: Metoprolol Tartrate [Lopressor*] 100 mg PO BID #120 tab 07/06/17 RX: Albuterol Sulfate [Proair Respiclick] 2 puff IH Q4HP PRN 07/18/20 RX: Budesonide/Formoterol Fumarate [Symbicort 160-4.5 Mcg Inhaler] 2 puff IH Q12H 07/18/20 RX: Furosemide [Lasix*] 80 mg PO BID 07/18/20 RX: Multivitamin [Multiple Vitamins] 1 tab PO DAILY 07/18/20 RX: Potassium Chloride 10 meq PO BID 07/18/20 RX: Rivaroxaban [Xarelto*] 20 mg PO BEDTIME 07/18/20 RX: traMADol HCL [Ultram*] 50 mg PO BIDP PRN 07/18/20 RX: Cyanocobalamin (Vitamin B-12) [Vitamin B12] 5,000 mcg SL DAILY #30 tab.rapdis 07/19/20 RX: Minocycline HCl 100 mg PO Q12H #20 capsule 07/19/20 RX: Atorvastatin Calcium [Lipitor*] 20 mg PO DAILY 08/10/20 RX: Arformoterol Tartrate [Brovana] 15 mcg NEB BIDRESP vial.neb 08/16/20 RX: Ascorbic Acid [Vitamin C*] 500 mg PO QID tablet 08/16/20 RX: Atorvastatin Calcium [Lipitor*] 20 mg PO DAILY tab 08/16/20 RX: Azithromycin Tab [Zithromax*] 500 mg PO DAILY tab 08/16/20 RX: Benzonatate [Tessalon Perle*] 100 mg PO TID PRN cap 08/16/20 RX: Cefuroxime [Ceftin*] 500 mg PO BID tab 08/16/20 RX: Cholecalciferol (Vitamin D3) [Vitamin D 1000 Iu Tab*] 4,000 unit PO DAILY tab 08/16/20 RX: Cyanocobalamin [Vitamin B-12*] 5,000 mcg SL DAILY tab 08/16/20 RX: Ensure High Protein 237 ml PO BID PRN can 08/16/20 RX: Furosemide [Lasix 40 MG INJ*] 40 mg IV Q12HR vial 08/16/20 RX: Glimepiride [Amaryl*] 2 mg PO BIDWM tab 08/16/20 RX: Ipratropium Neb [Atrovent*] 0.5 mg NEB [id number] PRN amp 08/16/20 RX: Levalbuterol [Xopenex*] 0.63 mg NEB [id number] PRN vial 08/16/20 RX: Metoprolol Tartrate [Lopressor*] 100 mg PO BID tab 08/16/20 RX: Multivit,Ther Iron,Ca,FA & Min [Centrum Tablet*] 1 tab PO DAILY tab 08/16/20 RX: Potassium Oral Tab [Klor-Con 10 mEq Tab*] 10 meq PO BIDWM tab 08/16/20 RX: Ropinirole HCl [Requip*] 12 mg PO BEDTIME tab 08/16/20 RX: Spironolactone [Aldactone*] 25 mg PO DAILY tab 08/16/20 RX: Thiamine HCl [Vitamin B-1*] 200 mg PO DAILY tablet 08/16/20 RX: Zinc Sulfate [Zinc Sulfate*] 220 mg PO DAILY cap 08/16/20 RX: clonazePAM [Klonopin*] 0.5 mg PO TID PRN tab 08/16/20 RX: predniSONE [Prednisone*] 20 mg PO BID tab 08/16/20 RX: traMADol HCL [Ultram*] 100 mg PO BIDP PRN tab 08/16/20 Physician Discharge Instructions: Ok to transfer to tertiary care facility Diet: AHA Activity: Fall precautions Followup: Unknown,U [Primary Care Provider] - Time spent managing pt's care (in minutes): 35
[2020-09-07 11:31] VITALS: BP 102/72; TEMP 98.2
== END 2020-08-16 16:24 | disposition short-term general hospital (02) | DRG 291 ==
LOC: ER 20:12 → ERHOLD 08-10 00:38 → 2ND 08-10 01:19 → ERHOLD 08-10 11:33 → 4TH 08-15 15:44
PROVIDERS: ADMIT Family Medicine; ATTEND Hospitalist
PROC: 5A09557 Assistance with Respiratory Ventilation, Greater than 96 Consecutive Hours, Continuous Positive Airway Pressure (ICD-10-PCS; principal; 2020-08-10)
DX: I13.0 Hypertensive heart and chronic kidney disease with heart failure and stage 1 through stage 4 chronic kidney disease, or unspecified chronic kidney disease (principal); J96.01 Acute respiratory failure with hypoxia; J96.02 Acute respiratory failure with hypercapnia; I50.33 Acute on chronic diastolic (congestive) heart failure; J18.9 Pneumonia, unspecified organism; J44.1 Chronic obstructive pulmonary disease with (acute) exacerbation; N17.9 Acute kidney failure, unspecified; I38 Endocarditis, valve unspecified; J44.0 Chronic obstructive pulmonary disease with (acute) lower respiratory infection; N18.2 Chronic kidney disease, stage 2 (mild); E11.22 Type 2 diabetes mellitus with diabetic chronic kidney disease; G25.81 Restless legs syndrome; I48.91 Unspecified atrial fibrillation; I05.0 Rheumatic mitral stenosis; F41.8 Other specified anxiety disorders; F17.200 Nicotine dependence, unspecified, uncomplicated; E78.5 Hyperlipidemia, unspecified; Z88.1 Allergy status to other antibiotic agents; Z86.73 Personal history of transient ischemic attack (TIA), and cerebral infarction without residual deficits; Z90.49 Acquired absence of other specified parts of digestive tract; Z79.01 Long term (current) use of anticoagulants; Z95.2 Presence of prosthetic heart valve; Z79.52 Long term (current) use of systemic steroids; Z79.899 Other long term (current) drug therapy; Z20.822 Contact with and (suspected) exposure to COVID-19
CPT/HCPCS: 36415; 71045; 71250; 76770; 80048; 80053; 80061; 80076; 81003; 82570; 82728; 82805; 82947; 83605; 83735; 83880; 84100; 84145; 84156; 84439; 84443; 84484; 85025; 85610; 86140; 87040; 87086; 87088; 93005; 93306; 94640; 94660; 94760; 99285; C9113; J0360; J0456; J0696; J1940; J2920; J2930; J3486; J7050; J7512; J7605; U0003

== ENCOUNTER 2020-11-13 14:13 | Inpatient (IN) | payer OTHER ==
--- OUTSIDE RECORDS SUMMARY | 2020-11-13 14:28 | XMS REPORT | Continuity of Care Document ---
:1950 Author Organization [facility] t Address [address] [place] [address] Care Team Providers Name Role Phone Cipriano Wontayla Primary Care Physician Doug WOLFF Attending Clinician Sean Whalen NP Attending Clinician Eduardo Gatica MD Attending Clinician Valeria Donaldson MD Attending Clinician Amparo Frederick MD Attending Clinician Airella Desai MD Attending Clinician Rodriguez Rahman MD Attending Clinician Jorge SHIN Attending Clinician Malcolm Guzman Attending Clinician Unavailable EDUARDO GATICA Attending Clinician Unavailable Chilo BAILEY Attending Clinician Unavailable Chilo Bailey MD Attending Clinician Estela Kimball MD Attending Clinician Delonte SHIN Attending Clinician ALEC VELEZ Attending Clinician Unavailable GURINDER MCCOY Attending Clinician Unavailable EDUARDO GATICA Admitting Clinician Unavailable ESTELA KIMBALL Admitting Clinician Unavailable ALEC VELEZ Admitting Clinician Unavailable Payers Payer Name Policy Type Policy Effective Date Expiration Date Sour ce Number HUMANA - MEDICARE [id number] [address] [facility] MGD CAREHUMANA 00:00:00 - Medical MEDICARE Center [id number] 020-PresentMaps Contracted Problems Condition Condition Condition Status Onset Resolution Last Treating Co mments Source Name Details Category Date Date Treatment Clinician Date S/P S/P Disease Active [facility] MVReplacem MVReplacem 09-01 Jodi kes - ent w/29mm ent w/29mm 00:00: Me dical pratik pratik 00 Center TAVR valve TAVR valve - Dwight - - Dwight - 09/01/20 09/01/20 s/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[facility] invasive invasive 08-16 [facility] - MVR by MVR by 00:00: Me dical Dwight Dwight 00 Center (09/01/20) (09/01/20) Nonrheumat Nonrheumat Disease Active [facility] ic aortic ic aortic 5-08 [place] - valve valve 00:00: Medical stenosis stenosis 00 Center 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 Me dical is is Center Hypertensi Hypertensi Disease Active [facility] on on [facility] TIA TIA Disease Active [facility] (transient (transient [facility] - ischemic ischemic Medica l attack) attack) Center Other Other Disease Active [facility] specified specified Lu s - hypotensio hypotensio Me dical n n Center Acute Acute Disease Active [facility] respirator respirator [facility] - y y Medical insufficie insufficie Ce nter ncy ncy Acute Acute Disease Active [facility] blood loss blood loss [facility] anemia anemia [facility] Hyperglyce Hyperglyce Disease Active [facility] monika [facility] Atrial Atrial Disease Active [facility] fibrillati fibrillati [facility] on with on with Medical RVR RVR Center ECG ECG Disease Active [facility] showing showing [facility] - electrical electrical Me dical capture capture Center after after temporary temporary pacing pacing H/O H/O Disease Active [facility] asbestosis asbestosis [facility] AV block AV block Disease Active [facility] t [facility] S/P MVR S/P MVR Disease Active [facility] (mitral (mitral [facility] - valve valve Medical replacemen replacemen Ce nter t) t) Vasogenic Vasogenic Disease Active [facility] St shock shock [facility] Chronic Chronic Disease Active [facility] St obstructiv obstructiv Jodi kes - e e Medical pulmonary pulmonary Cent er disease, disease, unspecifie unspecifie d COPD d COPD type type Delirium Delirium Disease Active [facility] S t [facility] Atrial Atrial Disease Active [facility] St fibrillati fibrillati Jodi ke - on, on, Medical unspecifie unspecifie Ce nter d type d type Anxiety Anxiety Disease Active [facility] SVT SVT Disease Active [facility] St (supravent (supravent [facility] - ricular ricular Medical tachycardi tachycardi Ce nter a) a) Difficult Difficult Disease Active [facility] St [facility] s access Medica l Center Acute on Acute on Disease Active [facility] chronic chronic [facility] - respirator respirator Me dical y failure y failure Cent er with with hypoxia hypoxia and and hypercapni hypercapni a a Metabolic Metabolic Disease Active [facility] St alkalosis alkalosis [facility] Pulmonary Pulmonary Disease Active [facility] St hypertensi hypertensi kes - on on [facility] Right Right Disease Active [facility] St ventricula ventricula kes - r r Medical dysfunctio dysfunctio Ce nter n n REBECA (acute REBECA (acute Disease Active [facility] kidney kidney [facility] - injury) injury) [facility] Thrombocyt Thrombocyt Disease Resolve 2020-08-16 2020-08-16 [facility] openia openia d 00:00:00 19:42:07 [facility] Allergies, Adverse Reactions, Alerts Allergy Allergy Status Severity Reaction(s) Onset Inactive Treating Comm ents Source Name Type Date Date Clinician Temazepa Drug Active Other (See "Disorien [facility] m Allergy Comments) 3 tation" [facility] - 00:00: Medical 00 [place] Sulfamet Drug Active Hives [facility] hoxazole Allergy 09-28 [facility] - -Trimeth 00:00: Medical oprim 00 [place] Family History Family Member Diagnosis Comments Start Date Stop Date Source Natural father Heart disease [facility] Social History Social Habit Start Date Stop Date Quantity Comments Source History of tobacco Current smoker [facility] Sex Assigned [facility] Cigarettes smoked 2020-10-08 2020-10-[address] [facility] - current (pack per 00:00:00 00:00:00 Medical Center day) - Reported Cigarette 2020-10-08 2020-10-[address] [facility] - pack-years 00:00:00 00:00:00 [facility] Tobacco use and 2020-10-08 2020-10-[address] [facility] - exposure 00:00:00 00:00:00 [facility] Alcohol intake 2020-10-08 2020-10-[address] [place] [facility] - 00:00:00 00:00:00 non-drinker of Medical nter alcohol (finding) Smoking Status Start Date Stop Date Source Former smoker 2020-10-08 00:00:2020-10-08 00:00:[address] [facility] - [facility] Medications Ordered Filled Start Stop Current Ordering Indication Dosage Frequency Signature Comments Components Source Medication Medication Date Date Medication? Clinician (SIG) Name Name rivaroxaban Yes 15mg Take [address] (XARELTO) 5-05 by mouth [facility] - 15 mg Tab 09:31: daily with Me dical tablet 48 dinner. Center doxepin Yes 25mg QD Take [address] (SINEquan) 5-05 by mouth [facility] - 25 MG 09:31: nightly. Medical capsule 48 Center traMADoL Yes 50mg Take [address] (ULTRAM) 50 5-05 by mouth Luke s - mg tablet 09:28: every 6 Medic al 03 (six) Center hours as needed for Pain. albuterol Yes 2{puff} Inhale [address] HFA 5-05 puffs by [facility] - (VENTOLIN 09:28: mouth via Med ical HFA) 90 03 inhaler Center mcg/actuati every 4 on inhaler (four) hours as needed for Wheezing. budesonide- Yes 2{puff} Q.5D Inhale [address] formoteroL 5-05 puffs by [facility] - (SYMBICORT) 09:28: mouth via M edical 160-4.5 03 inhaler 2 Center mcg/actuati (two) on inhaler times daily. rOPINIRole Yes 12mg QD Take [address] (REQUIP) 4 5-05 by mouth [facility] - MG tablet 09:28: nightly. Medi jill 03 Center famotidine 2020- No 20mg QD Take [address] (PEPCID) 20 4-21 05-12 tablet (20 L ukes - MG tablet 00:00: 23:59 mg total) Me dical 00 :00 by mouth Center daily for 21 days. atorvastati 2020- No 20mg QD Take [address] n (LIPITOR) 4-20 04-20 by mouth [place] - 20 MG 08:38: 00:00 daily. Medical tablet 50 :00 Center metoprolol 2020- No 100mg Q.5D Take [address] tartrate 4-20 04-20 mg by [facility] - (LOPRESSOR) 08:38: 00:00 mouth 2 Me dical 100 MG 50 :00 (two) Center tablet times daily. folic Yes 1{tbl} QD Take [address] acid-multiv 4-20 tablet by [place] - itamins 00:00: mouth Medical (NEPHRO-VIT 00 daily. Center E) 0.8 mg Tab tablet tamsulosin Yes .4mg QD Take 1 [facility] (FLOMAX) 4-20 capsule [facility] - 0.4 mg Cap 00:00: (0.4 mg Medi jill 24 hr 00 total) by Center capsule mouth daily. atorvastati 2021- Yes 40mg QD Take [address] n (LIPITOR) 4-20 04-20 tablet (40 L ukes - 40 MG 00:00: 23:59 mg total) Medica l tablet 00 :00 by mouth Center nightly. metoprolol 2021- Yes 25mg Q.5D Take [address] tartrate 4-20 04-20 tablet (25 Luke s - (LOPRESSOR) 00:00: 23:59 mg total) Medical 25 MG 00 :00 by mouth 2 Center tablet (two) times daily. aspirin 81 2021- Yes 81mg QD Take [address] MG chewable 4-20 04-20 tablet (81 L ukes - tablet 00:00: 23:59 mg total) Medic al 00 :00 by mouth Center daily. bumetanide 2021- Yes 1mg Take [address] (BUMEX) 1 4-20 04-20 tablet (1 Luke s - MG tablet 00:00: 23:59 mg total) Me dical 00 :00 by mouth 2 Center (two) times daily. spironolact 2021- Yes 25mg QD Take [address] one 4-20 04-20 tablet (25 [facility] - (ALDACTONE) 00:00: 23:59 mg total) Medical 25 MG 00 :00 by mouth Center tablet daily. polyethylen 2020- No 17g Q.5D Take [address] e glycol -20 -23 by mouth 2 Luke s - (GLYCOLAX) 00:00: 23:59 (two) Medic al 17 gram 00 :00 times Center packet daily for 3 days. furosemide 2020- No 40mg QD Take 0.[address] (LASIX) 80 3-25 04-20 tablets [facility] - MG tablet 00:00: 00:00 (40 mg Medic al 00 :00 total) by Center mouth daily. rivaroxaban 2020- No 20mg Take [address] (XARELTO) 3-24 03-24 by mouth [facility] - 20 mg Tab 10:41: 00:00 daily with M edical tablet 02 :00 dinner. Center furosemide 2020- No 80mg Q.5D Take [address] (LASIX) 80 3-24 03-24 by mouth 2 Jodi kes - MG tablet 10:41: 00:00 (two) Medica l 02 :00 times Center daily. cholecalcif 2020- No 4000U QD Take 4,[address] nicholas 3-24 03-24 Units by [facility]ukes - (VITAMIN 10:41: 00:00 mouth Medical D3) 25 mcg 02 :00 daily. Center (1,000 unit) tablet cyanocobala 2020- No 5000ug QD Take 5,[address] min, 3-24 03-24 mcg by [facility] - vitamin 10:41: 00:00 mouth Medical B-12, 02 :00 daily. [place] (vitamin B-12) 1000 MCG tablet potassium 2020- No 10meq Q.5D Take [address] chloride 3-24 03-24 mEq by [facility] - (KLOR-CON) 10:41: 00:00 mouth 2 Med ical 10 MEQ CR 02 :00 (two) Center tablet times daily. zinc No 220mg QD Take [address] sulfate 3-24 03-24 mg by [facility] - (ZINCATE) 10:34: 00:00 mouth Medica l 220 (50) mg 32 :00 daily. Center capsule traMADoL No 100mg Take [address] (ULTRAM) 50 3-24 03-24 mg by [facility] - mg tablet 10:34: 00:00 mouth 2 Medi jill 28 :00 (two) Center times daily as needed for Pain. thiamine 2020- No 200mg QD Take [address] 100 MG 3-24 03-24 mg by [facility] - tablet 10:34: 00:00 mouth Medical 25 :00 daily. Center spironolact 2020- No 25mg QD Take [address] [facility] one -27 08-24 by mouth [facility] - (ALDACTONE) 10:34: 00:00 daily. Med ical 25 MG 16 :00 Center tablet predniSONE No 20mg Q.5D Take [address] (DELTASONE) -24 03-24 by mouth 2 L ukes - 20 MG 10:33: 00:00 (two) Medical tablet 41 :00 times Center daily. levalbutero 2020- No 1{ampul Take [address] [facility] (XOPENEX) -27 08-24 e} ampule by Jodi Milan.63 mg/3 10:33: 00:00 nebulizati M edical mL 08 :00 on every 6 Center nebulizer (six) solution hours. iron-multiv 2020- No 1{tbl} QD Take [address] itamins-min -27 08-24 tablet by Jodi ruby 10:33: 00:00 mouth Medical (THERAGRAN- 02 :00 daily. Center M) 9 mg iron-400 mcg Tab tablet ipratropium 2020- No 500ug Take [address] (ATROVENT) 3-24 03-24 mcg by [facility] - 0.02 % 10:32: 00:00 nebulizati Medi jill nebulizer 59 :00 on every 6 Cent er solution (six) hours. glimepiride 2020- No 2mg Take [address] (AMARYL) 2 3-24 03-24 by mouth 2 Jodi kes - MG tablet 10:32: 00:00 (two) Medica l 52 :00 times Center daily with breakfast and dinner. furosemide 2020- No 80mg Q.5D Take [address] (LASIX) 80 -24 -24 by mouth 2 Jodi kes - MG tablet 10:32: 00:00 (two) Medica l 42 :00 times Center daily. clonazePAM 2020- No .5mg Take 0.[address] (KlonoPIN) 3-24 03-24 mg by [facility] - 0.5 MG 10:29: 00:00 mouth 3 Medical tablet 18 :00 (three) Center times daily as needed for Anxiety. cefUROXime 2020- No 500mg Q.5D Take [address] (CEFTIN) -24 03-24 mg by [facility] - 500 MG 10:28: 00:00 mouth 2 Medical tablet 56 :00 (two) Center times daily. benzonatate 2020- No 100mg [id number] Take [address] (TESSALON) -27 08-24 [id number] mg by L ukes - 100 MG 10:28: 00:00 3D mouth 3 Medical capsule 50 :00 (three) Center times daily. azithromyci 2020- No 500mg QD Take [address] n 3-24 03-24 mg by [facility]ukes - (ZITHROMAX) 10:28: 00:00 mouth Medi jill 500 MG 47 :00 daily. Center tablet ascorbic 2020- No 500mg QD Take [address] acid, 3-24 03-24 mg by [facility] - vitamin C, 10:28: 00:00 mouth Medic al (VITAMIN C) 37 :00 daily. Center 500 MG tablet arformotero 2020- No 15ug Q.5D Take [address] (BROVANA) 3-24 03-24 mcg by [facility] - 15 mcg/2 mL 10:28: 00:00 nebulizati Medical nebulizer 24 :00 on 2 (two) Cent er solution times daily. cholecalcif Yes 1000U QD Take [address] nicholas 3-24 tablet [facility]ukes - (VITAMIN 00:00: (1,000 Medical D3) 25 mcg 00 Units Center (1,000 total) by unit) mouth tablet daily. cyanocobala Yes 1000ug QD Take [address] min, 3-24 tablet [facility] - vitamin 00:00: (1,000 mcg Medi jill B-12, 00 total) by Center (vitamin mouth B-12) 1000 daily. MCG tablet warfarin 2020- No 6mg QD Take [address] (COUMADIN) 3-13 -13 by mouth Luke s - 6 MG tablet 18:17: 00:00 daily. Med ical 45 :00 Center atorvastati No 20mg QD Take [address] n (LIPITOR) -16 08-13 by mouth [place] - 20 MG 18:17: 00:00 daily. Medical tablet 33 :00 [place] metoprolol 2020- No 100mg Q.5D Take [address] (LOPRESSOR) 3-13 03-13 mg by [facility] - 100 MG 18:17: 00:00 mouth 2 Medical tablet 30 :00 (two) Center times daily. acetaminoph No 1{tbl} Take [address] en-codeine -25 08-13 tablet by [place] - (TYLENOL 00:00: 00:00 mouth Medical #3) 300-30 00 :00 every 4 Center mg per (four) tablet hours as needed. Max Daily Amount: 6 tablets Immunizations Ordered Immunization Filled Immunization Date Status Commen ts Source Name Name Pneumococcal 2020-08-[address] [facility] - Conjugate (Prevnar) 00:00:00 Medic al Center 13-Valent INFLUENZA QIV 2020-08-[address] [facility] - ADJUVANTED PF IM 00:00:00 Medical Center Vital Signs Vital Name Observation Time Observation Value Comments Source Systolic blood 2020-10-08 09:30:00 141 mm[Hg] [facility] pressure [facility] Diastolic blood 2020-10-08 09:30:00 88 mm[Hg] [facility] pressure [facility] Heart rate 2020-10-08 09:30:00 91 /min [facility] Respiratory rate 2020-10-08 09:30:00 16 /min [facility] Body height 2020-10-08 09:30:00 182.9 cm [facility] Body weight 2020-10-08 09:30:00 82.555 kg [facility] BMI 2020-10-08 09:30:00 24.68 kg/m2 [facility] Oxygen saturation in 2020-10-08 09:30:00 100 /min [facility] Arterial blood by Medical Ce nter Pulse oximetry Body temperature 2020-09-24 08:56:00 36.28 Sobeida [facility] Procedures Procedure Date / Time Performing Clinician Source Performed POCT-GLUCOSE METER 2020-09-24 09:20:00 Nnamdi Donaldson [facility] XR CHEST 1 VIEW 2020-09-24 07:38:00 Mariano Cisneros [facility] PORTABLE/BEDSIDE [facility] CALCIUM, IONIZED 2020-09-24 06:16:00 Mariano Cisneros [facility] BUN AND CREATININE W/RATIO 2020-09-24 06:15:00 Mariano Cisneros [facility] CBC W/PLT COUNT & AUTO 2020-09-24 06:15:00 Mariano Cisneros CH [facility] DIFFERENTIAL [facility] PHOSPHORUS 2020-09-24 06:15:00 Mariano Cisneros [facility] MAGNESIUM 2020-09-24 06:15:00 Mariano Cisneros [facility] COMPREHENSIVE METABOLIC 2020-09-24 06:15:[address] Natalie Hale [facility] POCT-GLUCOSE METER 2020-09-23 22:33:00 Saeid Rahman [facility] POCT-GLUCOSE METER 2020-09-23 16:19:00 Saeid Rahman [facility] POCT-GLUCOSE METER 2020-09-23 11:35:00 [facility] POCT-GLUCOSE METER 2020-09-23 07:12:00 [facility] APTT 2020-09-23 03:22:00 Delonte Lu [facility] CBC W/PLT COUNT & AUTO 2020-09-23 03:22:[address] [facility] CALCIUM, IONIZED 2020-09-23 03:22:00 Mariano Cisneros [facility] BASIC METABOLIC PANEL (7) 2020-09-23 03:22:00 Mariano Cisneros [facility] PHOSPHORUS 2020-09-23 03:22:00 Mariano Cisneros [facility] MAGNESIUM 2020-09-23 03:22:00 Blayne Mariano [facility] XR CHEST 1 VIEW 2020-09-23 03:04:00 Mariano Cisneros [facility] PORTABLE/BEDSIDE [facility] POCT-GLUCOSE METER 2020-09-22 21:52:00 [facility] & 2020-09-22 16:19:00 Mariano Cisneros [facility] REF LABS) [facility] POCT-GLUCOSE METER 2020-09-22 16:14:00 [facility] POCT-GLUCOSE METER 2020-09-22 11:04:00 Iraj Desai [facility] POCT-GLUCOSE METER 2020-09-22 07:26:00 Iraj Desai [facility] CBC W/PLT COUNT & AUTO 2020-09-22 05:09:[address] [facility] CALCIUM, IONIZED 2020-09-22 05:09:00 Mariano Cisneros [facility] BASIC METABOLIC PANEL (7) 2020-09-22 05:09:00 Mariano Cisneros [facility] PHOSPHORUS 2020-09-22 05:09:00 Mariano Cisneros [facility] PT/APTT 2020-09-22 05:09:00 Iraj Desai [facility] MAGNESIUM 2020-09-22 05:09:00 Mariano Cisneros [facility] XR CHEST 1 VIEW 2020-09-22 02:38:00 Mariano Cisneros [facility] PORTABLE/BEDSIDE Medical Center POCT-GLUCOSE METER 2020-09-21 22:03:00 Iraj Desai [facility] POCT-GLUCOSE METER 2020-09-21 17:10:00 Iraj Desai [facility] POTASSIUM 2020-09-21 17:07:00 Mabel Desaichary [facility] POCT-GLUCOSE METER 2020-09-21 12:09:00 Iraj Desai [facility] VANCOMYCIN LEVEL, TROUGH 2020-09-21 10:01:00 Kavya Lua [facility] POTASSIUM 2020-09-21 10:01:00 Mariano Cisneros [facility] POTASSIUM 2020-09-21 09:09:00 Iraj Desai [facility] MAGNESIUM 2020-09-21 09:09:00 Sera Noe [facility] POCT-GLUCOSE METER 2020-09-21 08:02:00 Iraj Desai [facility] CBC W/PLT COUNT & AUTO 2020-09-21 03:02:00 Mariano Cisneros [facility] CALCIUM, IONIZED 2020-09-21 03:02:00 Mariano Cisneros [facility] MAGNESIUM 2020-09-21 03:02:00 Sera Noe [facility] BASIC METABOLIC PANEL (7) 2020-09-21 03:02:00 Mariano Cisneros [facility] PHOSPHORUS 2020-09-21 03:02:00 Mariano Cisneros [facility] PT/APTT 2020-09-21 03:02:00 Iraj Dseai [facility] XR CHEST 1 VIEW 2020-09-21 02:02:00 Mariano Cisneros [facility] PORTABLE/BEDSIDE [facility] POCT-GLUCOSE METER 2020-09-21 00:17:00 Iraj Desai [facility] POTASSIUM 2020-09-20 18:02:00 Iraj Desai [facility] MAGNESIUM 2020-09-20 18:02:00 Sera Noe [facility] POCT-GLUCOSE METER 2020-09-20 16:27:00 Iraj Desai [facility] POCT-GLUCOSE METER 2020-09-20 11:35:00 Giselle Iraj [facility] BLOOD GAS, ARTERIAL 2020-09-20 10:46:00 Balaji Mancilla [facility] BLOOD GAS, VENOUS 2020-09-20 10:37:00 Balaji Mancilla [facility] APTT 2020-09-20 10:37:00 Delonte, Lu [facility] POTASSIUM 2020-09-20 08:23:00 Iraj Desai [facility] VANCOMYCIN LEVEL, TROUGH 2020-09-20 08:23:00 Bghigh, Elsie [facility] MAGNESIUM 2020-09-20 08:23:00 Sera Noe [facility] BUN AND CREATININE W/RATIO 2020-09-20 08:23:00 Mariano Cisneros [facility] POCT-GLUCOSE METER 2020-09-20 07:25:00 Iraj Desai [facility] BLOOD GAS, ARTERIAL 2020-09-20 04:46:00 Mariano Cisneros [facility] CBC W/PLT COUNT & AUTO 2020-09-20 04:08:00 Mariano Cisneros [facility] CALCIUM, IONIZED 2020-09-20 04:08:00 Mariano Cisneros [facility] MAGNESIUM 2020-09-20 04:08:00 Sera Noe [facility] PT/APTT 2020-09-20 04:08:00 Iraj Desai [facility] PHOSPHORUS 2020-09-20 04:08:00 Mariano Cisneros [facility] COMPREHENSIVE METABOLIC 2020-09-20 04:08:00 César Ward [facility] POTASSIUM 2020-09-20 00:19:00 Iraj Desai [facility] XR CHEST 1 VIEW 2020-09-20 00:13:00 Mariano Cisneros [facility] PORTABLE/BEDSIDE [facility] POCT-GLUCOSE METER 2020-09-19 21:28:00 Mabel Desaichary [facility] BASIC METABOLIC PANEL (7) 2020-09-19 16:52:00 César Ward [facility] MAGNESIUM 2020-09-19 16:52:00 Sera Noe [facility] MRSA SCREEN 2020-09-19 12:46:00 Bghigh Elsie [facility] POCT-GLUCOSE METER 2020-09-19 11:17:00 Iraj Desai [facility] POTASSIUM 2020-09-19 10:14:00 Iraj Desai [facility] MAGNESIUM 2020-09-19 10:14:00 Sera Noe [facility] BLOOD GAS, ARTERIAL 2020-09-19 03:56:00 Mariano Cisneros [facility] CBC W/PLT COUNT & AUTO 2020-09-19 03:55:[address] [facility] MAGNESIUM 2020-09-19 03:55:00 Sera Noe [facility] PT/APTT 2020-09-19 03:55:00 Iraj Desai [facility] PHOSPHORUS 2020-09-19 03:55:00 Mariano Cisneros [facility] CALCIUM, IONIZED 2020-09-19 03:55:00 [facility] COMPREHENSIVE METABOLIC 2020-09-19 03:55:00 [facility] XR CHEST 1 VIEW 2020-09-19 00:21:00 Mariano Cisneros [facility]/BEDSIDE [facility] PREPARE PLASMA 2020-09-18 23:55:00 Flaco Swanson [facility] POTASSIUM 2020-09-18 23:08:00 Iraj Desai [facility] POCT-GLUCOSE METER 2020-09-18 21:25:00 Giselle Iraj [facility] POCT-GLUCOSE METER 2020-09-18 16:28:00 Giselle Iraj [facility] POTASSIUM 2020-09-18 16:23:00 Iraj Desai [facility] MAGNESIUM 2020-09-18 16:23:00 Sera Noe [facility] POCT-GLUCOSE METER 2020-09-18 11:20:00 Iraj Desai [facility] XR CHEST 1 VIEW 2020-09-18 08:26:00 Iraj Desai [facility]/BEDSIDE [facility] POTASSIUM 2020-09-18 08:24:00 Mabel Desaichary [facility] MAGNESIUM 2020-09-18 08:24:00 Sera Noe [facility] BLOOD GAS, ARTERIAL 2020-09-18 08:24:00 Mariano Cisneros [facility] POCT-GLUCOSE METER 2020-09-18 07:20:00 Mabel Desaichary [facility] CBC W/PLT COUNT & AUTO 2020-09-18 04:35:00 Mariano Cisneros I [facility] CALCIUM, IONIZED 2020-09-18 04:35:00 Mariano Cisneros [facility] PROTHROMBIN TIME/INR 2020-09-18 04:35:00 Nnamdi Donaldson [facility] APTT 2020-09-18 04:35:00 Nnamdi Donaldson [facility] MAGNESIUM 2020-09-18 04:35:00 Sera Noe [facility] COMPREHENSIVE METABOLIC 2020-09-18 04:35:00 [facility] 2020-09-18 04:35[facility] RBC 2020-09-17 23:54:00 Iraj Garduno [facility] POCT-GLUCOSE METER 2020-09-17 22:11:00 Iraj Desai [facility] BASIC METABOLIC PANEL (7) 2020-09-17 20:24:00 Sera Noe [facility] MAGNESIUM 2020-09-17 20:24:00 Sera Noe [facility] PROTHROMBIN TIME/INR 2020-09-17 18:10:00 Joseph Robin [facility] APTT 2020-09-17 18:10:00 Joseph Robin [facility] BLOOD GAS, ARTERIAL 2020-09-17 17:08:00 [facility] POCT-GLUCOSE METER 2020-09-17 16:37:00 Iraj Desai [facility] BASIC METABOLIC PANEL (7) 2020-09-17 14:56:00 Sera Noe [facility] MAGNESIUM 2020-09-17 14:56:00 Sera Noe [facility] ANTIBODY IDENTIFICATION 2020-09-17 14:50:00 Flaco Swanson [facility] TRANSFUSE PLASMA 2020-09-17 12:50:14 Flaco Swanson [facility] POCT-GLUCOSE METER 2020-09-17 11:21:00 Iraj Desai [facility] PROTEIN, RANDOM URINE 2020-09-17 10:13:00 Iraj Desai [facility] CREATININE, RANDOM URINE 2020-09-17 10:13:00 Iraj Desai [facility] UREA NITROGEN, RANDOM 2020-09-17 10:13:00 Iraj Desai [facility] URINE [facility] EOSINOPHIL SMEAR, URINE 2020-09-17 10:13:00 Iraj Desai chilo [facility] SODIUM, RANDOM URINE 2020-09-17 10:13:00 Iraj Desai [facility] TYPE AND SCREEN, AUTOMATED 2020-09-17 10:05:00 Flaco Swanson [facility] POCT-GLUCOSE METER 2020-09-17 07:49:00 Iraj Desai [facility] POCT-GLUCOSE METER 2020-09-17 07:36:00 Iraj Desai [facility] PROTHROMBIN TIME/INR 2020-09-17 06:40:00 Lu Martel [facility] BLOOD GAS, ARTERIAL 2020-09-17 06:40:00 Teresita Zaragoza [facility] XR CHEST 1 VIEW 2020-09-17 03:50:00 Raghu Zimmerman [facility] PORTABLE/BEDSIDE Medical Center CBC W/PLT COUNT & AUTO 2020-09-17 03:17:[address] [facility] CALCIUM, IONIZED 2020-09-17 03:17:00 Mariano Cisneros [facility] PROTHROMBIN TIME/INR 2020-09-17 03:17:00 Nnamdi Donaldson [facility] APTT 2020-09-17 03:17:00 Nnmadi Donaldson [facility] BASIC METABOLIC PANEL (7) 2020-09-17 03:17:00 Sera Noe [facility] MAGNESIUM 2020-09-17 03:17:00 Sera Noe [facility] PREPARE LEUKO-REDUCED RBC 2020-09-16 23:54:00 Sera Noe [facility] BASIC METABOLIC PANEL (7) 2020-09-16 21:48:00 Sera Noe [facility] MAGNESIUM 2020-09-16 21:48:00 Sera Noe [facility] VANCOMYCIN LEVEL, TROUGH 2020-09-16 21:48:00 Teresita Zaragoza [facility] POCT-GLUCOSE METER 2020-09-16 16:31:00 Iraj Desai [facility] BASIC METABOLIC PANEL (7) 2020-09-16 15:37:00 Sera Noe [facility] MAGNESIUM 2020-09-16 15:37:00 Sera Noe [facility] HEMOGLOBIN AND HEMATOCRIT 2020-09-16 15:37:00 Sera Noe [facility] TRANSFUSE LEUKO-REDUCED 2020-09-16 15:32:34 Iraj Garduno [facility] RED BLOOD CELLS [facility] POCT-GLUCOSE METER 2020-09-16 11:43:00 Iraj Desai [facility] POCT-GLUCOSE METER 2020-09-16 07:48:00 Iraj Desai [facility] POCT-GLUCOSE METER 2020-09-16 07:12:00 Iraj Desai [facility] BLOOD GAS, ARTERIAL 2020-09-16 04:33:00 Teresita Zaragoza [facility] CBC W/PLT COUNT & AUTO 2020-09-16 04:08:[address] [facility] CALCIUM, IONIZED 2020-09-16 04:08:00 Mariano Cisneros [facility] PROTHROMBIN TIME/INR 2020-09-16 04:08:00 Nnamdi Donaldson [facility] APTT 2020-09-16 04:08:00 Nnamdi Donaldson [facility] BASIC METABOLIC PANEL (7) 2020-09-16 04:08:00 Sera Noe [facility] MAGNESIUM 2020-09-16 04:08:00 Sera Noe [facility] XR CHEST 1 VIEW 2020-09-16 00:48:00 Raghu Zimmerman [facility] PORTABLE/BEDSIDE [facility] POCT-GLUCOSE METER 2020-09-15 21:32:00 Iraj Desai [facility] BASIC METABOLIC PANEL (7) 2020-09-15 20:36:00 Sera Noe [facility] MAGNESIUM 2020-09-15 20:36:00 Sera Noe [facility] BLOOD GAS, ARTERIAL 2020-09-15 15:41:00 Iraj Desai [facility] CALCIUM, IONIZED 2020-09-15 15:40:00 Iraj Desai [facility] LACTIC ACID, ARTERIAL 2020-09-15 15:40:00 Iraj Desai [facility] COMPREHENSIVE METABOLIC 2020-09-15 15:40:00 Iraj Desai [facility] MAGNESIUM 2020-09-15 15:40:00 Dhara Fink [facility] PHOSPHORUS 2020-09-15 15:40:00 Dhara Fink [facility] ANTIBODY IDENTIFICATION 2020-09-15 15:10:00 [place] [facility] TRANSFUSE LEUKO-REDUCED 2020-09-15 14:27:46 Sera Noe [facility] RED BLOOD CELLS [facility] SARS-COV2/RT-PCR ([facility] & 2020-09-15 12:23:00 Mariano Cisneros [facility] - REF LABS) [facility] BLOOD GAS, ARTERIAL 2020-09-15 12:20:00 Dhara Fink [facility] CBC W/PLT COUNT & AUTO 2020-09-15 12:19:00 Dhara Fink [facility] DIFFERENTIAL [facility] BASIC METABOLIC PANEL (7) 2020-09-15 12:19:00 Sera Noe [facility] MAGNESIUM 2020-09-15 12:19:00 Sera Noe [facility] PREPARE RBC 2020-09-15 09:06:00 Sera Noe [facility] CBC W/PLT COUNT & AUTO 2020-09-15 03:57:00 Mariano Cisneros I [facility] CALCIUM, IONIZED 2020-09-15 03:57:00 Mariano Cisneros [facility] MAGNESIUM 2020-09-15 03:57:00 Natalie Hale [facility] PROTHROMBIN TIME/INR 2020-09-15 03:57:00 NeNnamdi covington [facility] APTT 2020-09-15 03:57:00 Nenadya Nnamdi Le [facility] BASIC METABOLIC PANEL (7) 2020-09-15 03:57:00 Raghu Zimmerman [facility] BLOOD GAS, ARTERIAL 2020-09-15 03:57:00 Raghu Zimmerman [facility] XR CHEST 1 VIEW 2020-09-15 00:28:00 Raghu Zimmerman [facility]/BEDSIDE [facility] BASIC METABOLIC PANEL (7) 2020-09-15 00:01:00 aRghu Zimmerman [facility] BLOOD GAS, ARTERIAL 2020-09-15 00:01:00 Raghu Zimmerman [facility] BASIC METABOLIC PANEL (7) 2020-09-14 21:51:00 Raghu Zimmerman [facility] BLOOD GAS, ARTERIAL 2020-09-14 17:39:00 Dhara Fink [facility] BASIC METABOLIC PANEL (7) 2020-09-14 17:39:00 Dhara Fink [facility] CBC W/PLT COUNT & AUTO 2020-09-14 17:39:00 Dhara Fink [facility] MAGNESIUM 2020-09-14 17:39:00 Dhara Fink [facility] PHOSPHORUS 2020-09-14 17:39:00 Dhara Fink [facility] BLOOD CULTURE 2020-09-14 17:20:00 Fink, Dhara Ramachandran [facility] TYPE AND SCREEN, AUTOMATED 2020-09-14 15:07:00 [place] [facility] CBC W/PLT COUNT & AUTO 2020-09-14 15:05:00 [place] [facility] POCT-BLOOD GASES, ARTERIAL 2020-09-14 14:36:00 Nenadya Nnamdi Shaw Xu [facility] POCT-SODIUM 2020-09-14 14:36:00 Neason, [facility] POCT-POTASSIUM 2020-09-14 14:36:00 [facility] POCT-HEMOGLOBIN 2020-09-14 14:36:00 [facility] POCT-HEMATOCRIT 2020-09-14 14:36:00 [facility] POCT-GLUCOSE 2020-09-14 14:36:00 [facility] B-TYPE NATRIURETIC FACTOR 2020-09-14 14:32:00 [facility] ([facility] LACTIC ACID, ARTERIAL 2020-09-14 14:32:00 [facility] XR CHEST 1 VIEW 2020-09-14 13:06:00 [facility] CHEST WITHOUT IV 2020-09-14 13:00:00 [place] [facility] CONTRAST [facility] POCT-GLUCOSE METER 2020-09-14 12:04:00 Nenadya [facility] POCT-GLUCOSE METER 2020-09-14 08:56:00 Nenadya [facility] CBC W/PLT COUNT & AUTO 2020-09-14 07:02:[address] [facility] CALCIUM, IONIZED 2020-09-14 07:02:00 Mariano Cisneros [facility] BASIC METABOLIC PANEL (7) 2020-09-14 07:02:00 Natalie Hale [facility] MAGNESIUM 2020-09-14 07:02:00 Natalie Hale [facility] PROTHROMBIN TIME/INR 2020-09-14 07:02:00 Neason [facility] APTT 2020-09-14 07:02:00 Neason, [facility] POCT-GLUCOSE METER 2020-09-13 20:51:00 Neason, [facility] POCT-GLUCOSE METER 2020-09-13 17:03:00 Neason, [facility] POCT-GLUCOSE METER 2020-09-13 11:47:00 Neason, [facility] LIMITED 2D ECHOCARDIOGRAM 2020-09-13 10:04:11 Lu Martel [facility] POCT-GLUCOSE METER 2020-09-13 07:40:00 Neason, [facility] CBC W/PLT COUNT & AUTO 2020-09-13 06:59:[address] [facility] CALCIUM, IONIZED 2020-09-13 06:59:00 Mariano Cisneros [facility] BASIC METABOLIC PANEL (7) 2020-09-13 06:59:00 Natalie Hale [facility] MAGNESIUM 2020-09-13 06:59:00 Natalie Hale [facility] PROTHROMBIN TIME/INR 2020-09-13 06:59:00 Neason, [facility] APTT 2020-09-13 06:59:00 Neason, [facility] POCT-GLUCOSE METER 2020-09-12 21:40:00 Neason, [facility] POCT-GLUCOSE METER 2020-09-12 17:33:00 Neason, [facility] POCT-GLUCOSE METER 2020-09-12 12:35:00 Neason, Nnamdi Le [facility] ECG 12-LEAD 2020-09-12 10:39:14 Laurent Urban [facility] POCT-GLUCOSE METER 2020-09-12 08:15:00 Nenadya Nnamdi [facility] CBC W/PLT COUNT & AUTO 2020-09-12 04:53:[address] [facility] CALCIUM, IONIZED 2020-09-12 04:53:00 Mariano Cisneros [facility] BASIC METABOLIC PANEL (7) 2020-09-12 04:53:00 Natalie Hale [facility] MAGNESIUM 2020-09-12 04:53:00 Natalie Hale [facility] PROTHROMBIN TIME/INR 2020-09-12 04:53:00 Nenadya [facility] APTT 2020-09-12 04:53:00 Nenadya [facility] POCT-GLUCOSE METER 2020-09-11 20:45:00 Neason [facility] POCT-GLUCOSE METER 2020-09-11 17:12:00 Neason [facility] POCT-GLUCOSE METER 2020-09-11 12:31:00 Neason [facility] POCT-GLUCOSE METER 2020-09-11 07:27:00 Nenadya [facility] CBC W/PLT COUNT & AUTO 2020-09-11 05:21:00 Mariano Cisneros CH, I [facility] CALCIUM, IONIZED 2020-09-11 05:21:00 Mariano Cisneros [facility] BASIC METABOLIC PANEL (7) 2020-09-11 05:21:00 Natalie Hale [facility] MAGNESIUM 2020-09-11 05:21:00 Natalie Hale [facility] PROTHROMBIN TIME/INR 2020-09-11 05:21:00 Nenadya [facility] APTT 2020-09-11 05:21:00 NeNnamdi covington [facility] POCT-GLUCOSE METER 2020-09-10 20:59:00 NeNnamdi covington [facility] POCT-GLUCOSE METER 2020-09-10 17:12:00 NeNnamdi covington [facility] POCT-GLUCOSE METER 2020-09-10 11:43:00 Nenadya Nnamdi Le [facility] POCT-GLUCOSE METER 2020-09-10 08:10:00 [facility] 2020-09-10 07:55:00 Iraj Garduno [facility] PROTHROMBIN TIME/INR 2020-09-10 07:55:00 Ritu Maher [facility] CBC W/PLT COUNT & AUTO 2020-09-10 05:17:00 Mariano Cisneros CH, I [facility] CALCIUM, IONIZED 2020-09-10 05:17:00 Mariano Cisneros [facility] BASIC METABOLIC PANEL (7) 2020-09-10 05:17:00 Natalie Hale [facility] MAGNESIUM 2020-09-10 05:17:00 Natalie Hale [facility] POCT-GLUCOSE METER 2020-09-09 21:23:00 [facility] PO[facility]SE METER 2020-09-09 16:08:00 [facility] POCT-GLUCOSE METER 2020-09-09 11:37:00 Dwight Kell [facility] POCT-GLUCOSE METER 2020-09-09 07:35:00 Dwight Kell [facility] CBC W/PLT COUNT & AUTO 2020-09-09 04:04:00 Mariano Cisneros CH, I [facility] CALCIUM, IONIZED 2020-09-09 04:04:00 Mariano Cisneros [facility] BASIC METABOLIC PANEL (7) 2020-09-09 04:04:00 Natalie Hale [facility] MAGNESIUM 2020-09-09 04:04:00 Natalie Hale [facility] APTT 2020-09-09 04:04:00 Natalie Hale [facility] POCT-GLUCOSE METER 2020-09-08 21:16:00 Dwight Kell [facility] POCT-GLUCOSE METER 2020-09-08 16:26:00 [facility] & 2020-09-08 15:30:00 Mariano Cisneros [facility] - REF LABS) [facility] XR CHEST 1 VIEW 2020-09-08 11:50:00 Lu Martel [facility] PORTABLE/BEDSIDE [facility] Center POCT-GLUCOSE METER 2020-09-08 11:06:00 Dwight Kell [facility] APTT 2020-09-08 07:51:00 Natalie Hale [facility] POCT-GLUCOSE METER 2020-09-08 07:13:00 Dwight Kell [facility] CBC W/PLT COUNT & AUTO 2020-09-08 03:23:00 Mariano Cisnerso I [facility] CALCIUM, IONIZED 2020-09-08 03:23:00 Mariano Cisneros [facility] BASIC METABOLIC PANEL (7) 2020-09-08 03:23:00 ahKit [facility] MAGNESIUM 2020-09-08 03:23:00 Tad [facility] VANCOMYCIN LEVEL, TROUGH 2020-09-08 01:36:00 Kavya Lua [facility] APTT 2020-09-08 01:36:00 Natalie Hale [facility] POTASSIUM 2020-09-07 17:55:00 [place] [facility] MAGNESIUM 2020-09-07 17:55:00 [place] [facility] APTT 2020-09-07 17:29:00 Natalie Hale [facility] POCT-GLUCOSE METER 2020-09-07 16:26:00 [facility] POCT-GLUCOSE METER 2020-09-07 11:28:00 Dwight Kell [facility] APTT 2020-09-07 09:40:00 Natalie Hale [facility] POCT-GLUCOSE METER 2020-09-07 07:43:00 Dwight Kell [facility] CBC W/PLT COUNT & AUTO 2020-09-07 03:47:[address] [facility] CALCIUM, IONIZED 2020-09-07 03:47:00 Mariano Cisneros [facility] BASIC METABOLIC PANEL (7) 2020-09-07 02:27:00 Tad [facility] MAGNESIUM 2020-09-07 02:27:00 Tad Claritzaramon [facility] POCT-GLUCOSE METER 2020-09-06 22:51:00 Dwight Kell [facility] BASIC METABOLIC PANEL (7) 2020-09-06 17:27:00 Dhara Fink [facility] MAGNESIUM 2020-09-06 17:27:00 Dhara Fink [facility] PHOSPHORUS 2020-09-06 17:27:00 Dhara Fink [facility] CALCIUM, IONIZED 2020-09-06 17:27:00 Dhara Fink [facility] POCT-GLUCOSE METER 2020-09-06 16:35:00 Dwight Kell [facility] ECG 12-LEAD 2020-09-06 16:22:10 Dhara Fink [facility] VANCOMYCIN LEVEL, TROUGH 2020-09-06 12:30:00 Humera May [facility] POCT-GLUCOSE METER 2020-09-06 12:09:00 Dwight Kell [facility] POCT-GLUCOSE METER 2020-09-06 08:08:00 Dwight Kell [facility] XR CHEST 1 VIEW 2020-09-06 07:59:00 Dhara Fink [facility] PORTABLE/BEDSIDE [facility] CBC W/PLT COUNT & AUTO 2020-09-06 04:34:[address] [facility] CALCIUM, IONIZED 2020-09-06 04:34:00 Mariano Cisneros [facility] POTASSIUM 2020-09-06 04:34:00 Aleta, [facility] MAGNESIUM 2020-09-06 04:34:00 [facility] BASIC METABOLIC PANEL (7) 2020-09-06 04:34:00 Dhara Fink [facility] PHOSPHORUS 2020-09-06 04:34:00 Dhara Fink [facility] PREPARE LEUKO-REDUCED RBC 2020-09-05 23:55:00 Iraj Garduno [facility] POCT-GLUCOSE METER 2020-09-05 21:44:00 Dwight Kell [facility] POCT-GLUCOSE METER 2020-09-05 18:06:00 Dwight Kell [facility] BLOOD GAS, ARTERIAL 2020-09-05 18:01:00 Dhara Fink [facility] POTASSIUM 2020-09-05 16:34:00 Aleta [facility] BASIC METABOLIC PANEL (7) 2020-09-05 16:34:00 Dhara Fink [facility] MAGNESIUM 2020-09-05 16:34:00 Fink, Dhara Ramachandran [facility] PHOSPHORUS 2020-09-05 16:34:00 Dhara Fink [facility] BASIC METABOLIC PANEL (7) 2020-09-05 08:01:00 Dhara Fink [facility] MAGNESIUM 2020-09-05 08:01:00 Dhara Fink [facility] PHOSPHORUS 2020-09-05 08:01:00 Dhara Fink [facility] CBC W/PLT COUNT & AUTO 2020-09-05 08:01:00 Dhara Fink [facility] BLOOD GAS, ARTERIAL 2020-09-05 07:59:00 Dhara Fink [facility] POCT-GLUCOSE METER 2020-09-05 07:18:00 Dave Gatica [facility] APTT 2020-09-05 04:55:00 Jl Smith [facility] BLOOD CULTURE 2020-09-05 03:28:00 Jonathon [facility]uez [facility] LACTIC ACID, ARTERIAL 2020-09-05 03:28:00 Sang [facility] BLOOD GAS, ARTERIAL 2020-09-05 03:28:00 Jl Smith [facility] TRANSFUSION REACTION 2020-09-05 01:38:00 Jl Smith [facility] POTASSIUM-STAT LAB 2020-09-05 01:18:00 Jl Smith [facility] BLOOD GAS, ARTERIAL 2020-09-05 01:16:00 Jl Smith [facility] XR CHEST 1 VIEW 2020-09-05 01:01:00 Jl Smith [facility]/BEDSIDE [facility] BASIC METABOLIC PANEL (7) 2020-09-05 00:44:00 Jl Smith [facility] CBC W/PLT COUNT & AUTO 2020-09-05 00:40:[address] [facility] CALCIUM, IONIZED 2020-09-05 00:40:00 Mariano Cisneros [facility] BLOOD GAS, ARTERIAL 2020-09-05 00:40:00 Luis Jl Horner [facility] TRANSFUSE LEUKO-REDUCED 2020-09-04 23:41:17 Jl Smith [facility] APTT 2020-09-04 22:32:00 Jr Luismeek Evens [facility] ECG 12-LEAD 2020-09-04 22:07:46 Unknown, Hl7 [facility] ECG 12-LEAD 2020-09-04 22:05:58 Unknown, Hl7 [facility] POCT-GLUCOSE METER 2020-09-04 22:02:00 Dave Gatica [facility] BLOOD GAS, ARTERIAL 2020-09-04 20:42:00 Jr Luismeek Evens [facility] BASIC METABOLIC PANEL (7) 2020-09-04 20:40:00 Jr Luishilbertkieran Evens [facility] CALCIUM, IONIZED 2020-09-04 20:40:00 Luis Jl Horner [facility] MAGNESIUM 2020-09-04 20:40:00 Jr Luishilbertkieran Horner [facility] CBC W/PLT COUNT & AUTO 2020-09-04 20:40:[address] [facility] ECG 12-LEAD 2020-09-04 19:22:21 Jr Luismeek Evens [facility] TRANSFUSE LEUKO-REDUCED 2020-09-04 17:13:[address] [facility] CBC (HEMOGRAM ONLY) 2020-09-04 14:47:00 Sera Noe [facility] POTASSIUM 2020-09-04 14:47:00 Spike Alarcon [facility] POCT-GLUCOSE METER 2020-09-04 11:17:00 Dave Gatica [facility] CBC (HEMOGRAM ONLY) 2020-09-04 09:00:00 Sera Noe [facility] TYPE AND SCREEN, AUTOMATED 2020-09-04 09:00:00 Iraj Garduno [facility] POCT-GLUCOSE METER 2020-09-04 07:23:00 [facility] (HEMO[facility] ONLY) 2020-09-04 05:53:00 Teresita Zaragoza [facility] XR CHEST 1 VIEW 2020-09-04 05:14:00 Spike [facility] BLOOD GAS, ARTERIAL 2020-09-04 04:28:00 Spike Alarcon [facility] CALCIUM, IONIZED 2020-09-04 04:27:00 Spike Alarcon [facility] CBC W/PLT COUNT & AUTO 2020-09-04 04:27:00 Dorian [facility] BASIC METABOLIC PANEL (7) 2020-09-04 04:27:00 [facility] MAGNESIUM 2020-09-04 04:27:00 Jaylin Alarconjay [facility] POCT-GLUCOSE METER 2020-09-03 22:21:00 Dave Gatica [facility] 2D ECHO W/ DOPPLER 2020-09-03 20:30:21 Iraj Garduno [facility] (CW/PW/COLOR) [facility] POCT-GLUCOSE METER 2020-09-03 12:05:00 Jerald [facility] XR CHEST 1 VIEW 2020-09-03 05:10:00 Melvi Tanwie Polycarp [facility] PORTABLE/BEDSIDE [facility] [place] ECG 12-LEAD 2020-09-03 04:53:25 Melvi, [facility] 2020-09-03 04:52:12 Unknown, Hl7 [facility] BASIC METABOLIC PANEL (7) 2020-09-03 03:17:00 Aleta Cortes [facility] MAGNESIUM 2020-09-03 03:17:00 Aleta [facility] PHOSPHORUS 2020-09-03 03:17:00 Aleta [facility] BLOOD GAS, ARTERIAL 2020-09-03 03:17:00 Dorian [facility] CBC W/PLT COUNT & AUTO 2020-09-03 03:17:00 Dorian [facility] CALCIUM, IONIZED 2020-09-03 03:17:00 Dorian [facility] XR CHEST 1 VIEW 2020-09-03 00:42:00 Spike [facility]IDE [facility] PREPARE PLATELETS 2020-09-02 23:54:00 Dave Gatica [facility] BLOOD GAS, ARTERIAL 2020-09-02 22:22:00 Melvi Bannerannjeffery [facility] LACTIC ACID, ARTERIAL 2020-09-02 22:22:00 [facility] MAGNESIUM 2020-09-02 22:22:00 [facility] PHOSPHORUS 2020-09-02 22:22:00 [facility] CALCIUM, IONIZED 2020-09-02 22:22:[address] [facility] SODIUM NA-STAT LAB 2020-09-02 22:22:00 [facility]vi [facility] POTASSIUM-STAT LAB 2020-09-02 22:22:00 Melvi [facility] GLUCOSE-STAT LAB 2020-09-02 22:22:00 Melvi, Tanmarjorie Saul [facility] HGB/HCT (H&H) - STAT LAB 2020-09-02 22:22:00 Melvi Anuragmarjorie Overton [facility] POCT-GLUCOSE METER 2020-09-02 17:38:00 Jerald [facility] POCT-GLUCOSE METER 2020-09-02 12:45:00 Dwight Kell [facility] [facility] 12-LEAD 2020-09-02 09:14:31 Unknown, Hl7 [facility] XR CHEST 1 VIEW 2020-09-02 08:57:00 [facility]BED[facility]IDE Medical [place] BASIC METABOLIC PANEL (7) 2020-09-02 08:56:00 Spike Alarcon [facility] MAGNESIUM 2020-09-02 08:56:00 [facility] W/PLT COUNT & AUTO 2020-09-02 08:56:00 [facility] LACTIC ACID, ARTERIAL 2020-09-02 08:56:00 [facility] BLOOD GAS, ARTERIAL 2020-09-02 08:56:00 Spike Alarcon [facility] POCT-GLUCOSE METER 2020-09-02 08:30:00 [facility] POCT-GLUCOSE METER 2020-09-02 07:08:00 Jerald [facility] PHOSPHORUS 2020-09-02 03:29:00 [place] [facility] CBC W/PLT COUNT & AUTO 2020-09-02 03:29:00 Spike Alarcon [facility] BASIC METABOLIC PANEL (7) 2020-09-02 03:29:00 Spike Alarcon [facility] MAGNESIUM 2020-09-02 03:29:00 Jaylin Alarconjay [facility] CALCIUM, IONIZED 2020-09-02 03:29:00 DorianJaylinSpike [facility] S [facility] BLOOD GAS, ARTERIAL 2020-09-02 03:29:00 DorianSpike [facility] POCT-GLUCOSE METER 2020-09-02 02:26:00 Dwight [facility] POCT-GLUCOSE METER 2020-09-02 01:13:00 [facility]ight [facility] XR CHEST 1 VIEW 2020-09-02 01:08:00 DorianSpike [facility]/BEDSIDE [facility] POCT-GLUCOSE METER 2020-09-01 23:52:00 Dwight [facility] POCT-GLUCOSE METER 2020-09-01 20:40:00 Dwight [facility] BLOOD GAS, ARTERIAL 2020-09-01 19:26:00 Kobi Ogden I [facility] POCT-GLUCOSE METER 2020-09-01 18:54:00 Dwight [facility] ECG 12-LEAD 2020-09-01 17:27:52 Aleta [facility] ECG 12-LEAD 2020-09-01 17:27:32 Unknown, Hl7 [facility] ECG 12-LEAD 2020-09-01 17:25:04 Unknown, Hl7 [facility] BLOOD GAS, ARTERIAL 2020-09-01 17:08:00 Aleta [facility] LACTIC ACID, ARTERIAL 2020-09-01 17:08:00 Dwight [facility] SODIUM NA-STAT LAB 2020-09-01 17:08:00 Dwight [facility] POTASSIUM-STAT LAB 2020-09-01 17:08:00 [facility] GLUCOSE-STAT LAB 2020-09-01 17:08:[address] [facility] HGB/HCT (H&H) - STAT LAB 2020-09-01 17:08:00 Dwight [facility] CBC W/PLT COUNT & AUTO 2020-09-01 15:07:00 [place] [facility] XR CHEST 1 VIEW 2020-09-01 15:04:00 Spike Alarcon [facility]IDE [facility] Center COMPREHENSIVE METABOLIC 2020-09-01 14:58:00 Spike Alarcon [facility] LACTIC ACID, ARTERIAL 2020-09-01 14:58:00 Spike Alarcon [facility] BLOOD GAS, ARTERIAL 2020-09-01 14:58:00 Spike Alarcon CH I [facility] OXYGEN SATURATION, 2020-09-01 14:58:[address] [facility] MAGNESIUM 2020-09-01 14:58:00 [facility] CALCIUM, IONIZED 2020-09-01 14:58:00 Spike Alarcon [facility] PHOSPHORUS 2020-09-01 14:58:00 Spike Alarcon [facility] PROTHROMBIN TIME/INR 2020-09-01 14:58:00 Spike Alarcon C [facility] APTT 2020-09-01 14:58:00 Spike Alarcon [facility] FIBRINOGEN 2020-09-01 14:58:00 Jaylin Alarconjay [facility] PREPARE PLASMA 2020-09-01 14:48:00 [facility] PREPARE RBC 2020-09-01 14:48:00 Dwight [facility] ANESTHESIA GERRI 2020-09-01 14:01:36 Kashif Mendieta [facility] TISSUE EXAM 2020-09-01 13:55:00 Dwight [facility] TRANSFUSE LEUKO-REDUCED 2020-09-01 13:35:[address] [facility] POCT-ACT 2020-09-01 13:32:00 [facility] BLOOD GAS, ARTERIAL 2020-09-01 13:15:17 [facility] CALCIUM, IONIZED 2020-09-01 13:15[facility]OT[facility]/INR 2020-09-01 13:15:17 [facility] 2020-09-01 13:15:17 Jorge [facility] FIBRINOGEN 2020-09-01 13:15:17 [facility] PLATELET COUNT 2020-09-01 13:15:17 [facility] SODIUM NA-STAT LAB 2020-09-01 13:15:17 [facility] POTASSIUM-STAT LAB 2020-09-01 13:15:17 [facility] 2020-09-01 13:15:17 [facility] (H&H) - STAT LAB 2020-09-01 13:15:17 [facility] CBC W/PLT COUNT & AUTO 2020-09-01 13:15:00 Spike Alarcon [facility] POCT-ACT 2020-09-01 13:02:00 Dwight [facility] BLOOD GAS, ARTERIAL 2020-09-01 13:00:03 Dwight [facility] SODIUM NA-STAT LAB 2020-09-01 13:00:03 [facility]ight [facility] POTASSIUM-STAT LAB 2020-09-01 13:00:03 [facility]ight [facility] GLUCOSE-STAT LAB 2020-09-01 13:00:[address] [facility] HGB/HCT (H&H) - STAT LAB 2020-09-01 13:00:03 Dwight [facility] POCT-ACT 2020-09-01 12:31:00 Dwight [facility] BLOOD GAS, ARTERIAL 2020-09-01 12:29:28 Dwight [facility] SODIUM NA-STAT LAB 2020-09-01 12:29:28 Dwight [facility] POTASSIUM-STAT LAB 2020-09-01 12:29:28 Dwight [facility] GLUCOSE-STAT LAB 2020-09-01 12:29:[address] [facility] HGB/HCT (H&H) - STAT LAB 2020-09-01 12:29:28 [facility] LACT[facility] ACID, ARTERIAL 2020-09-01 12:29:16 Dwight [facility] POCT-ACT 2020-09-01 12:05:00 [facility] BLOOD GAS, ARTERIAL 2020-09-01 12:00:46 [facility] NA-[facility] 2020-09-01 12:00:46 [facility] POT[facility]SI[facility]-STAT [facility] 2020-09-01 12:00:46 [facility] GLUCOSE-STAT LAB 2020-09-01 12:00:46 Dwight, [facility] HGB/HCT (H&H) - STAT LAB 2020-09-01 12:00:46 Dwight [facility] POCT-ACT 2020-09-01 11:23:00 Dwight [facility] LACTIC ACID, ARTERIAL 2020-09-01 11:20:07 [facility] BLOOD GAS, ARTERIAL 2020-09-01 11:20:00 Dw[facility] SODIUM NA-STAT LAB 2020-09-01 11:20:00 [facility] POTASSIUM-STAT LAB 2020-09-01 11:20:00 [facility] GLUCOSE-STAT LAB 2020-09-01 11:20:[address] [facility] HGB/HCT (H&H) - STAT LAB 2020-09-01 11:20:00 [facility] ANESTHESIA PERIPHERAL 2020-09-01 11:06:29 Robi Patel [facility] POCT-ACT 2020-09-01 10:57:00 Dwight [facility] BLOOD GAS, ARTERIAL 2020-09-01 10:51:14 [facility] SODIUM NA-STAT LAB 2020-09-01 10:51:14 [facility] POTASSIUM-STAT LAB 2020-09-01 10:51:14 [facility] GLUCOSE-STAT LAB 2020-09-01 10:51:14 [facility]H) - STAT LAB 2020-09-01 10:51:14 Dwight, [facility] POCT-ACT 2020-09-01 10:38:00 Dwight [facility] POCT-ACT 2020-09-01 10:26:00 Michael [facility]atica[facility] BLOOD GAS, ARTERIAL 2020-09-01 09:11:13 Jorge [facility] SODIUM NA-STAT LAB 2020-09-01 09:11:13 Jorge [facility] POTASSIUM-STAT LAB 2020-09-01 09:11:13 Jorge [facility] GLUCOSE-STAT LAB 2020-09-01 09:11:13 [facility]&H) - STAT LAB 2020-09-01 09:11:13 Jorge [facility] REPLACEMENT,VALVE MITRAL 2020-09-01 07:42:00 [facility] AND [facility]CREEN, AUTOMATED 2020-09-01 07:35:00 Dave Gatica [facility] POCT-GLUCOSE METER 2020-09-01 07:09:00 [facility] ARRYTHMIA IMPLANT REPORT - 2020-09-01 00:00:00 Provider, Default [facility] REPORT OF PROCEDURE - 2020-09-01 00:00:00 Provider, Default [facility] ENDOSCOPY [facility] SARS-COV2/RT-PCR ([facility] & 2020-08-27 11:25:00 Iraj [facility] PO[facility]-GLUCOSE METER 2020-08-27 08:53:00 Joni Kimball [facility] HC CAROTID DOPPLER AKOSUA 2020-08-27 08:28:00 [place] [facility] ECG 12-LEAD 2020-08-27 04:09:37 Iraj Garduno [facility] BASIC METABOLIC PANEL (7) 2020-08-27 04:02:00 Kirt Tong [facility] CBC W/PLT COUNT & AUTO 2020-08-27 04:02:00 Kirt Tong [facility] MAGNESIUM 2020-08-27 04:02[facility]00 [facility] AND [facility]CREEN, AUTOMATED 2020-08-27 04:02:00 [place] [facility] POCT-GLUCOSE METER 2020-08-26 22:02:00 Hasjanett [facility] POCT-GLUCOSE METER 2020-08-26 17:48:00 Hasjanett [facility] POCT-GLUCOSE METER 2020-08-26 13:33:00 Hasjanett [facility] POCT-GLUCOSE METER 2020-08-26 08:57:00 Jigar [facility] CBC W/PLT COUNT & AUTO 2020-08-26 03:47:00 Kirt Tong [facility] CALCIUM, IONIZED 2020-08-26 03:47:00 [facility] COMPREHENSIVE METABOLIC 2020-08-26 03:47:00 [facility] MAGNESIUM 2020-08-26 03:47:00 [facility] POCT-GLUCOSE METER 2020-08-25 21:17:00 Hasjanett [facility] POCT-GLUCOSE METER 2020-08-25 17:48:00 Hasjanett, [facility] POCT-GLUCOSE METER 2020-08-25 12:49:00 Hasjanett, [facility] POCT-GLUCOSE METER 2020-08-25 08:40:00 Hasjanett [facility] BASIC METABOLIC PANEL (7) 2020-08-25 04:51:00 Kirt Tong [facility] CBC W/PLT COUNT & AUTO 2020-08-25 04:51:00 Kirt Tong [facility] MAGNESIUM 2020-08-25 04:51:00 [facility] POCT-GLUCOSE METER 2020-08-24 17:55:00 HasJoni rowland [facility] POCT-GLUCOSE METER 2020-08-24 11:48:00 HasanJoni [facility] POCT-GLUCOSE METER 2020-08-24 07:40:00 Hasan [facility] SARS-COV2/RT-PCR ([facility] & 2020-08-24 04:13:[address] [facility] LABS) [facility] BASIC METABOLIC PANEL (7) 2020-08-24 04:13:00 Kirt Tong [facility] CBC W/PLT COUNT & AUTO 2020-08-24 04:13:00 Kirt Tong [facility] MAGNESIUM 2020-08-24 04:13:00 [facility] POCT-GLUCOSE METER 2020-08-23 21:54:00 Hasan, Joni [facility] POCT-GLUCOSE METER 2020-08-23 18:18:00 Hasjanett Joni [facility] POCT-GLUCOSE METER 2020-08-23 13:01:00 Hasan, Joni [facility] POCT-GLUCOSE METER 2020-08-23 08:58:00 Hasan [facility] BASIC METABOLIC PANEL (7) 2020-08-23 04:09:00 Kirt Tong [facility] CBC W/PLT COUNT & AUTO 2020-08-23 04:09:00 Kirt Tong [facility] MAGNESIUM 2020-08-23 04:09:00 César Ward [facility] POCT-GLUCOSE METER 2020-08-22 21:16:00 Joni Kimball [facility] R & L CATH / CORONARY 2020-08-22 14:03:00 Lu Martel [facility] ANGIOS / PCI [facility] POCT-GLUCOSE METER 2020-08-22 08:56:00 Jigar [facility] HEMOGLOBIN A1C 2020-08-22 03:27:00 Jigar [facility] CBC W/PLT COUNT & AUTO 2020-08-22 03:26:00 Kirt Tong [facility] PROTHROMBIN TIME/INR 2020-08-22 03:26:00 Iraj Garduno [facility] HEPATIC FUNCTION PANEL 2020-08-22 03:26:00 Iraj Garduno [facility] CALCIUM, IONIZED 2020-08-22 03:26:00 Ed [facility] MAGNESIUM 2020-08-22 03:26:00 [facility] COMPREHENSIVE METABOLIC 2020-08-22 03:26:00 [facility] PHOSPHORUS 2020-08-22 03:26:00 [facility] POCT-GLUCOSE METER 2020-08-21 21:24:00 Jigar [facility] POCT-GLUCOSE METER 2020-08-21 18:18:00 Jigar [facility] POCT-GLUCOSE METER 2020-08-21 12:27:00 Jigar [facility] POCT-GLUCOSE METER 2020-08-21 08:15:00 Jigar [facility] BASIC METABOLIC PANEL (7) 2020-08-21 03:41:00 Kirt Tong [facility] CBC W/PLT COUNT & AUTO 2020-08-21 03:41:00 Kirt Tong [facility] HEPATIC FUNCTION PANEL 2020-08-21 03:41:00 Joni Kimball [facility] B-TYPE NATRIURETIC FACTOR 2020-08-21 03:41:00 Joni Kimball [facility] (BNP) [facility] CT ABDOMEN/PELVIS WITHOUT 2020-08-21 00:33:00 [place] [facility] POCT-GLUCOSE METER 2020-08-20 22:16:00 Joni Kimball [facility] POCT-GLUCOSE METER 2020-08-20 17:54:00 Joni Kimball [facility] POCT-GLUCOSE METER 2020-08-20 12:10:00 Joni Kimball [facility] URINALYSIS W/ MICROSCOPIC 2020-08-20 09:13:00 Joni Kimball [facility] SODIUM, RANDOM URINE 2020-08-20 09:13:00 Joni Kimball [facility] CREATININE, RANDOM URINE 2020-08-20 09:13:00 Joni Kimball [facility] UREA NITROGEN, RANDOM 2020-08-20 09:13:00 Joni Kimball [facility] POCT-GLUCOSE METER 2020-08-20 07:36:00 Joni Kimball [facility] BASIC METABOLIC PANEL (7) 2020-08-20 03:32:00 Kirt Tong [facility] CBC W/PLT COUNT & AUTO 2020-08-20 03:32:00 Kirt Tong [facility] CTA CHEST 2020-08-20 00:52:00 Nallely Bassett [facility] POCT-GLUCOSE METER 2020-08-19 21:22:00 Joni Kimball [facility] POCT-GLUCOSE METER 2020-08-19 17:56:00 Joni Kimball [facility] POCT-GLUCOSE METER 2020-08-19 12:03:00 Joni Kimball Estela Rendon [facility] SPIROMETRY 2020-08-19 07:38:00 Heydi Tierney [facility] POCT-GLUCOSE METER 2020-08-19 07:17:00 Jigar Joni [facility] BASIC METABOLIC PANEL (7) 2020-08-19 04:15:00 Kirt Tong [facility] CBC W/PLT COUNT & AUTO 2020-08-19 04:15:00 Kirt Tong [facility] POCT-GLUCOSE METER 2020-08-18 21:18:00 Jigar Joni [facility] POCT-GLUCOSE METER 2020-08-18 17:29:00 Jigar [facility] XR CHEST 2 VIEWS 2020-08-18 16:53:00 Rajwinder Maddox [facility] TRANSESOPHAGEAL ECHO 2020-08-18 10:20:00 Trevor Fitzpatrick [facility] POCT-GLUCOSE METER 2020-08-18 07:46:00 Jigar [facility] BASIC METABOLIC PANEL (7) 2020-08-18 03:35:00 Kirt Tong [facility] CBC W/PLT COUNT & AUTO 2020-08-18 03:35:00 Kirt Tong [facility] POCT-GLUCOSE METER 2020-08-17 21:07:00 Jigar Joni [facility] COLOR-FLOW MAPPING 2020-08-17 18:55:43 Trevor Fitzpatrick [facility] CONT WAVE PULSED DOPPLER 2020-08-17 18:55:43 Yadi Fitzpatrick [facility] 2D ECHO W/ DOPPLER 2020-08-17 15:46:[address] [facility] - (CW/PW/COLOR) [facility] POCT-GLUCOSE METER 2020-08-17 08:09:00 Joni Kimball [facility] SARS-COV2/RT-PCR ([facility] & 2020-08-17 05:25:00 Kirt Tong [facility] - REF LABS) [facility] BASIC METABOLIC PANEL (7) 2020-08-17 05:19:00 Kirt Tong [facility] HEPATIC FUNCTION PANEL 2020-08-17 05:19:00 Joni Kimball [facility] CBC W/PLT COUNT & AUTO 2020-08-17 05:19:00 Kirt Tong [facility] DIFFERENTIAL [facility] B-TYPE NATRIURETIC FACTOR 2020-08-17 05:19:00 Joni Kimball [facility] (BNP) [facility] POCT-GLUCOSE METER 2020-08-16 21:48:00 Joni Kimball Justice [facility] BASIC METABOLIC PANEL (7) 2020-08-16 18:40:00 Kirt Tong [facility] CBC W/PLT COUNT & AUTO 2020-08-16 18:40:00 Kirt Tong [facility] DIFFERENTIAL [facility] VASCULAR DIAGRAM -SCAN 2020-08-16 00:00:[address] [facility] CARDIAC CATH REPORT - SCAN 2020-08-16 00:00:00 Provider, [facility] Plan of Care Planned Activity Planned Date Details Comments Source Future Scheduled 2021-08-18 PNEUMOCOCCAL 65+ YRS [facility] - Test 00:00:00 (2 of 2 - PPSV23) Medical Ce nter [code = PNEUMOCOCCAL 65+ YRS (2 of 2 - PPSV23)] Future Scheduled 2020-06-[address] [facility] - Test 00:00:00 WELLNESS (YEAR 2 or Medical Center FIRST YEAR if no IPPE) [code = MEDICARE ANNUAL WELLNESS (YEAR 2 or FIRST YEAR if no IPPE)] Future Scheduled 2001 SHINGLES VACCINES ([address] [facility] - Test 00:00:00 of 2) [code = SHINGLES Medic al Center VACCINES (1 of 2)] Future Scheduled 1970 DTAP/TDAP/TD VACCINES [facility] Test 00:00:00 (1 - Tdap) [code = Medical C enter DTAP/TDAP/TD VACCINES (1 - Tdap)] Future Scheduled 1969 HEPATITIS C SCREENING [facility] Test 00:00:00 [code = HEPATITIS C Medical Center SCREENING] Future Scheduled 1963 COVID-19 VACCINE (1) [facility] - Test 00:00:00 [code = COVID-[address] VACCINE (1)] Future Scheduled [address] - Test 00:00:00 [facility] colon (procedure) [code = 251324341] Results Test Description Test Time Test Comments Results Result Sour e Comments ARRYTHMIA IMPLANT 2020-10-17 Ordered by an [facility] REPORT - SCAN 08:57:05 unspecified - Medical provider. [place] POC-Glucose meter 2020-09-24 09:33:00 Test Item Value Reference Range Interpretation Comme [facility] POC-Glucose Meter (test code = 146 mg/dL 70-110 H : TESTED AT [facility] [address] [facility] 1538) [facility], [address] 30: Chocolate Temperer/Techni hilary ID = [id number] for Leilani Nobles Lab Interpretation (test code = Abnormal 72048-0) [facility] [id number] 09:33:00 Test Item Value Reference Range Interpretation Comments POC-GLUCOSE METER 146 mg/dL 70-110 H : TESTED A T [facility] [address] (BEAKER) (test code = [facility], 1538) [address]: Chocolate Temperer/Techni hilary ID = [id number] for Leilani Cardoso RAD, CHEST, 1 VIEW, NON [id number] 08:14:00Reason for exam:->acute respiratory failureShould this be performed at the bedside?->Yes [facility] 1950 Sex: MFINAL REPORT RAD, CHEST, 1 VIEW, NON DEPT INDICATION: acute res piratory failure COMPARISON: Prior day's exam FINDINGS: Portable frontal view of the chest. IMPRESSION: Support Lines: Pacer device. Sternotomy wires. Lungs and pleura: Small right effusion. No pneumothorax.Heart and mediastinum: Stable contours. Stable surgical changes.Additional findings: None. Signed: Jacqueline Jacobo Verified Date/Time: 09/24/2020 08:14:03 Reading Location: [facility] Radiology Reading Room XR chest 1 view portable / [id number] 08:14:00Interface, External Ris In - 09/24/2020 8:16 AM CDTFINAL REPORT RAD, CHEST, 1 VIEW, NON DEPT INDICATION: acute respiratory failure COMPARISON: Prior day's exam FINDINGS: Portable frontal view of the chest. IMPRESSION: Support Lines: Pacer device. Sternotomy wires. Lungs and p leura: Small right effusion. No pneumothorax.Heart and mediastinum: Stable contours. Stable surgicalchanges.Additional findings: None. Signed: Jacqueline Jacobo Verified Date/Time: 09/24/2020 08:14:03 Reading Location: [facility] Radiology Reading [facility] [id number] 07:25:00 Test Item Value Reference Range Interpretation Comments Protein, Total (test 6.8 See_Comment [Autom ated code = 2885-2) message] The system which generated this result transmit susie reference range : 6.0 - 8.3 gm/dL . The reference range was not u sed to interpret th is result as normal/abnormal . Albumin (test code = 3.7 g/dL 3.5-5 04432-5) Alkaline Phosphatase 75 U/L 40-150 (test code = 6768-6) Total Bilirubin (test 1.0 mg/dL 0.2-1.2 code = 1974-2) Sodium (test code = 136 meq/L 558-305 2278-2) Potassium (test code 4.0 meq/L 3.5-5.1 = 2823-3) Chloride (test code = 98 meq/L 98-107 5-0) CO2 (test code = 28 meq/L 22-29 2027-9) BUN (test code = 36 mg/dL 7-21 H 3094-0) Creatinine (test code 1.49 mg/dL 0.57-1.25 H = 2160-0) Glucose (test code = 137 mg/dL 70-105 H 2345-7) Calcium (test code = 8.8 mg/dL 8.4-10.2 42008-4) AST (test code = 17 U/L 5-34 1920-8) ALT (test code = 20 U/L 6-55 1742-6) EGFR (test code = 47 mL/min/1.73 [place] [address]-6) NOT ACCURATE CREATININE CLEARANCE IN PREDICTING GLOMERULAR FILTRATION RATE . ESTIMATED GFR I S NOT APPLICABLE FOR DIALYSIS PATIEN TS. KANCHAN (test code = KANCHAN) Chocolate Temperer ID - YAMEL Parekr Lab Interpretation Abnormal (test code = 05705-2) [facility] Center[facility]esium2021-04-21 07:25:00 Test Item Value Reference Range Interpretation Comments Magnesium (test code = 1.9 mg/dL 1.6-2.6 59955-1) KANCHAN (test code = KANCHAN) Chocolate Temperer ID - YAMEL Parker Lab Interpretation (test Normal code = 40885-5) [facility] CenterPhosphorus2021-04-21 07:25:00 Test Item Value Reference Range Interpretation Comments Phosphorus (test code = 3.5 mg/dL 2.3-4.7 7-1) KANCHAN (test code = KANCHAN) Chocolate Temperer ID - YAMEL Parker Lab Interpretation (test Normal code = 28776-4) [facility] CenterBUN and Creatinine (Obtain baseline and then every 3 days, if not already ordered)2020-09-24 07:25:00 Test Item Value Reference Range Interpretation Comments BUN (test code = 36 mg/dL 7-21 H 3094-0) Creatinine (test code = 1.49 mg/dL 0.57-1.25 H 2160-0) BUN/Creatinine ratio 24 For a normal (test code = 3097-3) individ ual on a normal diet, th e reference inter leatha for the mass ra adelaida ranges between 12:1 and 20:1 (BUN i n mg/dL/creatinin e in mg/dL) EGFR (test code = 47 mL/min/1.[place] [address]-3) NOT ACCURATE CREATININE CLEARANCE IN PREDICTING GLOMERULAR FILTRATION RATE . ESTIMATED GFR I S NOT APPLICABLE FOR DIALYSIS PATIEN TS. Lab Interpretation Abnormal (test code = 80453-6) [facility] CenterCOMPREHENSIVE METABOLIC [id number] 07:25:00 Test Item Value Reference Range Interpretation Comments TOTAL PROTEIN 6.8 gm/dL 6.0-8.3 (BEAKER) (test code = 770) ALBUMIN (BEAKER) 3.7 g/dL 3.5-5.0 (test code = 1145) ALKALINE PHOSPHATASE 75 U/L 40-150 (BEAKER) (test code = 346) BILIRUBIN TOTAL 1.0 mg/dL 0.2-1.2 (BEAKER) (test code = 377) SODIUM (BEAKER) (test 136 meq/L 136-145 code = 381) POTASSIUM (BEAKER) 4.0 meq/L 3.5-5.1 (test code = 379) CHLORIDE (BEAKER) 98 meq/L 98-107 (test code = 382) CO2 (BEAKER) (test 28 meq/L 22-29 code = 355) BLOOD UREA NITROGEN 36 mg/dL 7-21 H (BEAKER) (test code = 354) CREATININE (BEAKER) 1.49 mg/dL 0.57-1.25 H (test code = 358) GLUCOSE RANDOM 137 mg/dL 70-105 H (BEAKER) (test code = 652) CALCIUM (BEAKER) 8.8 mg/dL 8.4-10.2 (test code = 697) AST (SGOT) (BEAKER) 17 U/L 5-34 (test code = 353) ALT (SGPT) (BEAKER) 20 U/L 6-55 (test code = 347) EGFR (BEAKER) (test 47 mL/min/1.73 ESTIMA SUSIE GFR IS code = 1092) sq m NOT ACCURATE CREATININE CLEARANCE IN PREDICTING GLOMERULAR FILTRATION RATE . ESTIMATED GFR I S NOT APPLICABLE FOR DIALYSIS PATIEN TS. Chocolate Temperer ID - YAMEL FBUN AND CREATININE [id number] 07:25:00 Test Item Value Reference Range Interpretation Comments BLOOD UREA NITROGEN 36 mg/dL 7-21 H (BEAKER) (test code = 354) CREATININE (BEAKER) 1.49 mg/dL 0.57-1.25 H (test code = 358) BUN/CREAT RATIO 24 For a normal (BEAKER) (test code individu al on a = [id number]) normal diet, t he reference inter leatha for the mass ra adelaida ranges between 12:1 and 20:1 (BUN i n mg/dL/creatinin e in mg/dL) EGFR (BEAKER) (test 47 mL/min/1.73 ESTIMA SUSIE GFR IS code = 1092) sq m NOT ACCURATE CREATININE CLEARANCE IN PREDICTING GLOMERULAR FILTRATION RATE . ESTIMATED GFR I S NOT APPLICABLE FOR DIALYSIS PATIEN TS. [id number] 07:25:00 Test Item Value Reference Range Interpretation Comments MAGNESIUM (BEAKER) (test code = 1.9 mg/dL 1.6-2.6 627) Chocolate Temperer ID Joaquín MONTESINOS [id number] 07:25:00 Test Item Value Reference Range Interpretation Comments PHOSPHORUS (BEAKER) (test code = 3.5 mg/dL 2.3-4.7 604) Chocolate Temperer ID Joaquín MONTESINOS FCBC with platelet count + automated [id number] 06:48:00 Test Item Value Reference Range Interpretation Comments WBC (test code = 6690-2) 11.2 See_Comment H [A utomated message] The system [employer] generated this result transmitted ref erence range: 3.5 - 10 .5 K/L. The refe rence range was not u sed to interpret this result as normal/abnor mal. RBC (test code = 789-8) 3.99 See_Comment L [Au tomated message] The system [employer] generated this result transmitted ref erence range: 4.63 - 6 .08 M/L. The refe rence range was not u sed to interpret this result as normal/abnor mal. MCHC (test code = 786-4) 32.0 See_Comment L [A utomated message] The system [employer] generated this result transmitted ref erence range: 32.3 - 3 6.5 GM/DL. The refe rence range was not u sed to interpret this result as normal/abnor mal. Hematocrit (test code = 34.1 % 40.1-51 L 4544-3) MCV (test code = 787-2) 85.5 fL 79-92.2 MCH (test code = 785-6) 27.3 pg 25.7-32.2 RDW (test code = 788-0) 15.9 % 11.6-14.4 H Platelets (test code = 141 See_Comment L [Aut omated message] 777-3) The system [employer] generated this result transmitted ref erence range: 150 - 45 0 K/CU MM. The referen ce range was not u sed to interpret this result as normal/abnor mal. MPV (test code = 11.4 fL 9.4-12.4 70198-5) nRBC (test code = 413) 0 See_Comment [Aut omated message] The system [employer] generated this result transmitted ref erence range: 0 - 0 /1 00 WBC. The refere nce range was not u sed to interpret this result as normal/abnor mal. % Neutros (test code = 76 % 429) % Lymphs (test code = 11 % 430) % Monos (test code = 10 % 431) % Eos (test code = 432) 2 % % Baso (test code = 437) 0 % # Neutros (test code = 8.45 See_Comment H [Aut omated message] 670) The system [employer] generated this result transmitted ref erence range: 1.78 - 5 .38 K/L. The refe rence range was not u sed to interpret this result as normal/abnor mal. # Lymphs (test code = 1.24 See_Comment L [Auto mated message] 414) The system [employer] generated this result transmitted ref erence range: 1.32 - 3 .57 K/L. The refe rence range was not u sed to interpret this result as normal/abnor mal. # Monos (test code = 1.15 See_Comment H [Autom ated message] 415) The system [employer] generated this result transmitted ref erence range: 0.30 - 0 .82 K/L. The refe rence range was not u sed to interpret this result as normal/abnor mal. # Eos (test code = 416) 0.18 See_Comment [Au tomated message] The system [employer] generated this result transmitted ref erence range: 0.04 - 0 .54 K/L. The refe rence range was not u sed to interpret this result as normal/abnor mal. # Baso (test code = 417) 0.05 See_Comment [A utomated message] The system [employer] generated this result transmitted ref erence range: 0.01 - 0 .08 K/L. The refe rence range was not u sed to interpret this result as normal/abnor mal. Immature 1 % 0-1 Granulocytes-Relative (test code = 2801) Lab Interpretation (test Abnormal code = 60122-7) [facility] W/PLT COUNT & AUTO [id number] 06:48:00 Test Item Value Reference Range Interpretation Comments WHITE BLOOD CELL COUNT (BEAKER) 11.2 K/ L 3.5-10.5 H (test code = 775) RED BLOOD CELL COUNT (BEAKER) 3.99 M/ L 4.63-6.08 L (test code = 761) HEMOGLOBIN (BEAKER) (test code = 10.9 GM/DL 13.7-17.5 L 410) HEMATOCRIT (BEAKER) (test code = 34.1 % 40.1-51.0 L 411) MEAN CORPUSCULAR VOLUME (BEAKER) 85.5 fL 79.0-92.2 (test code = 753) MEAN CORPUSCULAR HEMOGLOBIN 27.3 pg 25.7-32.2 (BEAKER) (test code = 751) MEAN CORPUSCULAR HEMOGLOBIN CONC 32.0 GM/DL 32.3-36.5 L (BEAKER) (test code = 752) RED CELL DISTRIBUTION WIDTH 15.9 % 11.6-14.4 H (BEAKER) (test code = 412) PLATELET COUNT (BEAKER) (test 141 K/CU MM 150-450 L code = 756) MEAN PLATELET VOLUME (BEAKER) 11.4 fL 9.4-12.4 (test code = 754) NUCLEATED RED BLOOD CELLS 0 /100 WBC 0-0 (BEAKER) (test code = 413) NEUTROPHILS RELATIVE PERCENT 76 % (BEAKER) (test code = 429) LYMPHOCYTES RELATIVE PERCENT 11 % (BEAKER) (test code = 430) MONOCYTES RELATIVE PERCENT 10 % (BEAKER) (test code = 431) EOSINOPHILS RELATIVE PERCENT 2 % (BEAKER) (test code = 432) BASOPHILS RELATIVE PERCENT 0 % (BEAKER) (test code = 437) NEUTROPHILS ABSOLUTE COUNT 8.45 K/ L 1.78-5.38 H (BEAKER) (test code = 670) LYMPHOCYTES ABSOLUTE COUNT 1.24 K/ L 1.32-3.57 L (BEAKER) (test code = 414) MONOCYTES ABSOLUTE COUNT (BEAKER) 1.15 K/ L 0.30-0.82 H (test code = 415) EOSINOPHILS ABSOLUTE COUNT 0.18 K/ L 0.04-0.54 (BEAKER) (test code = 416) BASOPHILS ABSOLUTE COUNT (BEAKER) 0.05 K/ L 0.01-0.08 (test code = 417) IMMATURE GRANULOCYTES-RELATIVE 1 % 0-1 PERCENT (BEAKER) (test code = 2801) Calcium, [id number] 06:46:00 Test Item Value Reference Range Interpretation Comments Calcium, Ion (test code = 1993-) 1.08 mmol/L 1.12-1.27 L pH, Blood (test code = 90867-2) 7.43 Lab Interpretation (test code = Abnormal 74810-3) [facility] [id number] 06:46:00 Test Item Value Reference Range Interpretation Comments CALCIUM IONIZED (BEAKER) (test 1.08 mmol/L 1.12-1.27 L code = 698) PH, BLOOD (BEAKER) (test code = 7.43 1810) POCT-GLUCOSE [id number] 22:45:00 Test Item Value Reference Range Interpretation Comments POC-GLUCOSE METER 111 mg/dL 70-110 H : TESTED A T [facility] 6720 (BEAKER) (test code = [facility], 153) [address]: Chocolate Temperer/Techni hilary ID = [id number] for DO VERGARASeptember POCT-GLUCOSE [id number] 16:31:00 Test Item Value Reference Range Interpretation Comments POC-GLUCOSE METER 158 mg/dL 70-110 H : TESTED A T [facility] 6720 (BEAKER) (test code = [facility], 1538) 11507: Chocolate Temperer/Techni hilary ID = [id number] for [place] LDIVIEZ, ANDREA POCT-GLUCOSE [id number] 11:47:00 Test Item Value Reference Range Interpretation Comments POC-GLUCOSE METER 137 mg/dL 70-110 H : TESTED A T [facility] 6720 (BEAKER) (test code = [facility], 1538) 61317: Chocolate Temperer/Techni hilary ID = [id number] for VA LDIVIEZ, ANDREA POCT-GLUCOSE [id number] 07:24:00 Test Item Value Reference Range Interpretation Comments POC-GLUCOSE METER 127 mg/dL 70-110 H : TESTED A T [facility] 6720 (BEAKER) (test code = [facility], 1538) 45488: Chocolate Temperer/Techni hilary ID = [id number] for VA LDIVIEZ, ANDREA RAD, CHEST, 1 VIEW, NON [id number] 04:23:00Reason for exam:->acute respiratory failureShould this be performed at the bedside?->Yes [facility] 1950 Sex: MFINAL REPORT RAD, CHEST, 1 VIEW, NON DEPT INDICATION: acute res piratory failure COMPARISON: Prior day's exam FINDINGS: Portable frontal view of the chest. IMPRESSION: Support Lines: Stable. Lungs and pleura: Unchanged airspace and pleural opacities. No pneumothorax.Heart and mediastinum: Stable contours. Stable surgical changes.Additional findings: None. Signed: Tegan Johns Verified Date/Time: 09/23/2020 04:23:48 Basic Metabolic [id number] 04:09:00 Test Item Value Reference Range Interpretation Comments Sodium (test code = 139 meq/L 444-747 3473-2) Potassium (test code = 3.8 meq/L 3.5-5.1 2823-3) Chloride (test code = 100 meq/L 98-107 2075-0) CO2 (test code = 28 meq/L 22-29 2028-9) BUN (test code = 37 mg/dL 7-21 H 3094-0) Creatinine (test code 1.35 mg/dL 0.57-1.25 H = 2160-0) Glucose (test code = 158 mg/dL 70-105 H 2345-7) Calcium (test code = 8.5 mg/dL 8.4-10.2 37377-8) EGFR (test code = 52 mL/min/1.73 [place] [address]-4) NOT ACCURATE CREATININE CLEARANCE IN PREDICTING GLOMERULAR FILTRATION RATE . ESTIMATED GFR I S NOT APPLICABLE FOR DIALYSIS PATIENTS. KANCHAN (test code = KANCHAN) Chocolate Temperer ID - CECILE M Lab Interpretation Abnormal (test code = 54807-8) [facility] METABOLIC [id number] 04:09:00 Test Item Value Reference Range Interpretation Comments SODIUM (BEAKER) 139 meq/L 136-145 (test code = 381) POTASSIUM (BEAKER) 3.8 meq/L 3.5-5.1 (test code = 379) CHLORIDE (BEAKER) 100 meq/L 98-107 (test code = 382) CO2 (BEAKER) (test 28 meq/L 22-29 code = 355) BLOOD UREA NITROGEN 37 mg/dL 7-21 H (BEAKER) (test code = 354) CREATININE (BEAKER) 1.35 mg/dL 0.57-1.25 H (test code = 358) GLUCOSE RANDOM 158 mg/dL 70-105 H (BEAKER) (test code = 652) CALCIUM (BEAKER) 8.5 mg/dL 8.4-10.2 (test code = 697) EGFR (BEAKER) (test 52 mL/min/1.73 ESTIMA SUSIE GFR IS code = 1092) sq m NOT ACCURATE CREATININE CLEARANCE IN PREDICTING GLOMERULAR FILTRATION RATE . ESTIMATED GFR I S NOT APPLICABLE FOR DIALYSIS PATIEN TS. Chocolate Temperer ID - CECILE [id number] 04:09:00 Test Item Value Reference Range Interpretation Comments MAGNESIUM (BEAKER) (test code = 2.0 mg/dL 1.6-2.6 627) Chocolate Temperer ID - CECILE [id number] 04:09:00 Test Item Value Reference Range Interpretation Comments PHOSPHORUS (BEAKER) (test code = 3.8 mg/dL 2.3-4.7 604) Chocolate Temperer ID - CECILE MCALCIUM, [id number] 04:05:00 Test Item Value Reference Range Interpretation Comments CALCIUM IONIZED (BEAKER) (test 1.12 mmol/L 1.12-1.27 code = 698) PH, BLOOD (BEAKER) (test code = 7.41 1810) [id number] 04:04:00 Test Item Value Reference Range Interpretation Comments PTT (test code = 05668-2) 29.3 See_Comment [ Automated message] The system [employer] generated this result transmitted ref erence range: 22.5 - 3 6.0 seconds. The re ference range was not u sed to interpret this result as normal/abnor mal. Lab Interpretation (test Normal code = 28800-4) [id number] 04:04:00 Test Item Value Reference Range Interpretation Comments PARTIAL THROMBOPLASTIN TIME 29.3 seconds 22.5-36.0 (BEAKER) (test code = 760) CBC W/PLT COUNT & AUTO [id number] 03:50:00 Test Item Value Reference Range Interpretation Comments WHITE BLOOD CELL COUNT (BEAKER) 9.7 K/ L 3.5-10.5 (test code = 775) RED BLOOD CELL COUNT (BEAKER) 4.08 M/ L 4.63-6.08 L (test code = 761) HEMOGLOBIN (BEAKER) (test code = 11.2 GM/DL 13.7-17.5 L 410) HEMATOCRIT (BEAKER) (test code = 34.2 % 40.1-51.0 L 411) MEAN CORPUSCULAR VOLUME (BEAKER) 83.8 fL 79.0-92.2 (test code = 753) MEAN CORPUSCULAR HEMOGLOBIN 27.5 pg 25.7-32.2 (BEAKER) (test code = 751) MEAN CORPUSCULAR HEMOGLOBIN CONC 32.7 GM/DL 32.3-36.5 (BEAKER) (test code = 752) RED CELL DISTRIBUTION WIDTH 15.9 % 11.6-14.4 H (BEAKER) (test code = 412) PLATELET COUNT (BEAKER) (test 143 K/CU MM 150-450 L code = 756) MEAN PLATELET VOLUME (BEAKER) 10.8 fL 9.4-12.4 (test code = 754) NUCLEATED RED BLOOD CELLS 0 /100 WBC 0-0 (BEAKER) (test code = 413) NEUTROPHILS RELATIVE PERCENT 73 % (BEAKER) (test code = 429) LYMPHOCYTES RELATIVE PERCENT 14 % (BEAKER) (test code = 430) MONOCYTES RELATIVE PERCENT 10 % (BEAKER) (test code = 431) EOSINOPHILS RELATIVE PERCENT 2 % (BEAKER) (test code = 432) BASOPHILS RELATIVE PERCENT 0 % (BEAKER) (test code = 437) NEUTROPHILS ABSOLUTE COUNT 6.99 K/ L 1.78-5.38 H (BEAKER) (test code = 670) LYMPHOCYTES ABSOLUTE COUNT 1.39 K/ L 1.32-3.57 (BEAKER) (test code = 414) MONOCYTES ABSOLUTE COUNT (BEAKER) 0.96 K/ L 0.30-0.82 H (test code = 415) EOSINOPHILS ABSOLUTE COUNT 0.20 K/ L 0.04-0.54 (BEAKER) (test code = 416) BASOPHILS ABSOLUTE COUNT (BEAKER) 0.04 K/ L 0.01-0.08 (test code = 417) IMMATURE GRANULOCYTES-RELATIVE 1 % 0-1 PERCENT (BEAKER) (test code = 2801) SARS-CoV2/RT-PCR (Asymptomatic ONLY)2020-09-23 00:21:00 Test Item Value Reference Range Interpretation Comments SARS-COV2/RT-PCR Negative Not Detected, (test code = Negative, See 91086-2) external report for linked test SARS-COV-2 [facility] PERFORMING LAB (test code = 60973-8) KANCHAN (test code = Negative result for this KANCHAN) test determines that SARS-CoV-2 RNA was not present in the specimen above the Limit of Detection (LOD). However, Negative results do not preclude SARS-CoV-2 infection and should not be used as the sole basis for treatment or patient management decisions. Negative results must be combined with clinical observations, patient history, and epidemiological information. A false negative result may occur if a specimen is improperly collected, transported or handled. A false negative result should be considered if patient's recent exposures or clinical presentation indicate that COVID-19 (SARS-CoV-2) is likely and diagnostic tests for other causes of illness are negative. Re-testing should be considered in cases of suspected false negatives. The limit of detection for this assay is 100 copies/mL. This SARS CoV-2 test is a real-time RT-PCR test intended for the qualitative detection of nucleic acid from SARS-CoV-2 in a nasopharyngeal swab specimen collected from individuals suspected of COVID-19 by their healthcare provider. This test has not been Food and Drug Administration (FDA) cleared or approved. This is a modified version of an approved Emergency Use Authorization (EUA) and is in the process of review by the FDA. Once authorized by the FDA, the issued EUA will be effective until the declaration that circumstances exist justifying the authorization of the emergency use of in vitro diagnostic tests for detection and/or diagnosis of COVID-19 is terminated under Section 564(b)(2) of the Act or the EUA is revoked under Section 564(g) of the Act. Testing was performed using the [employer] SARS-CoV-2 assay. Fact Sheet for Healthcare Providers:https://www.[facility].peraza/nakita/RT_SA DV-EpY-9_PJH_Vtlj_Qzuzh_ 51-173653.pdf Fact Sheet for Healthcare Patients:https://www.[facility].peraza/nakita/RT_SAR U-EfV-3_Qsomuoo_Moin_Owd et_EN_51-789345B7.pdf Performing Laboratory:[facility] [place] [address] [facility] & REF LABS)2020-09-23 00:21:00 Test Item Value Reference Range Interpretation Comments SARS-COV2/RT-PCR (test Negative Not Detected, Negative, code = 4163253) See external report for linked test SARS-COV-2 PERFORMING LAB [facility] (test code = 0767379) Negative result for this test determines that SARS-CoV-2 RNA was not present in the specimen above the Limit of Detection (LOD). However, Negative results do not preclude SARS-CoV-2 infection and should not be used as the sole basis for treatment or patient management decisions. Negative results mustbe combined with clinical observations, patient history, and epidemiological information. A false negative result may occur if a specimen is improperly collected, transported or handled. A false negative result should be considered if patient's recent exposures or clinical presentation indicate that COVID-19 (SARS-CoV-2) is likely and diagnostic tests for other causes of illness are negative. Re-testing should be considered in cases of suspected false negatives.The limit of detection for this assay is 100 copies/mL.This SARS CoV-2 test is a real-time RT-PCR test intended for the qualitative detection of nucleic acid from SARS-CoV-2 in a nasopharyngeal swab specimen collected from individuals susp ected of COVID-19 by their healthcare provider.This test has not been Food and Drug Administration (FDA) cleared or approved. This is a modified version of an approved Emergency Use Authorization (EUA) and is in the process of review by the FDA. Once authorized by the FDA, the issued EUA will be effective until the declaration that circumstances exist justifying the authorization of the emergency use of in vitro diagnostic tests for detection and/or diagnosis of COVID-19 is terminated under Section 564(b)(2) of the Act or the EUA is revoked under Section 564(g) of the Act.Testing was performed using the [employer] SARS-CoV-2 assay.Fact Sheet for Healthcare Providers:https://www.molecular.peraza/nakita/ HC_LYWQ-SqL-2_JBC_Jwaa_Cfrvq_47-891395.pdfFact Sheet for Healthcare Patients:https://www.[employer].ab rowena/nakita/HQ_WMRW-SnD-5_Capavlu_Tmbk_Ewngr_CE_13-156012J9.pdfPerforming Laboratory:[address] [place] [address] POCT-GLUCOSE [id number] 22:04:00 Test Item Value Reference Range Interpretation Comments POC-GLUCOSE METER 94 mg/dL 70-110 : TESTED A T [facility] 6720 (BEAKER) (test code = [facility], 153) 177[address]: Chocolate Temperer/Techni hilary ID = [id number] for JORGE WYNN POCT-GLUCOSE [id number] 16:26:00 Test Item Value Reference Range Interpretation Comments POC-GLUCOSE METER 273 mg/dL 70-110 H : TESTED A T [facility] 6720 (BEAKER) (test code = [facility], 1538) 82913: Chocolate Temperer/Techni hilary ID = [id number] for SEAN SAUNDERS POCT-GLUCOSE [id number] 11:16:00 Test Item Value Reference Range Interpretation Comments POC-GLUCOSE METER 170 mg/dL 70-110 H : TESTED A T [facility] 6720 (BEAKER) (test code = [facility], 1538) 40357: Chocolate Temperer/Techni hilary ID = [id number] for KOREY WHATLEY POCT-GLUCOSE [id number] 07:38:00 Test Item Value Reference Range Interpretation Comments POC-GLUCOSE METER 233 mg/dL 70-110 H : TESTED A T [facility] 6720 (BEAKER) (test code = [facility], 153) 22057: Chocolate Temperer/Techni hilary ID = [id number] for YADI Alexia KOREY [id number] 06:12:00 Test Item Value Reference Interpretation Comments Range Protime (test code = 14.4 See_Comment H [Autom ated 5902-2) message] The system which generated this result transmitted reference range : 11.9 - 14.2 seconds. The reference range was not used to interpret this result as normal/abnormal . INR (test code = 1.15 See_Comment [Automated 8911-6) message] The system which generated this result transmitted reference range : <=5.90. The reference range was not used to interpret this result as normal/abnormal . PTT (test code = 28.8 See_Comment [Automated 55515-5) message] The system which generated this result transmitted reference range : 22.5 - 36.0 seconds. The reference range was not used to interpret this result as normal/abnormal . KANCHAN (test code = Effective 11/01/2018: KANCHAN) PT Reference Range ChangeNew: 11.9-14.2 Previous: 11.7-14.7 RECOMMENDED COUMADIN/WARFARIN INR THERAPY RANGESSTANDARD DOSE: 2.0-3.0 Includes: PROPHYLAXIS for venous thrombosis, systemic embolization; TREATMENT for venous thrombosis and/or pulmonary embolus.HIGH RISK: Target INR is 2.5-3.5 for patients wiht mechanical heart valves. Lab Interpretation Abnormal (test code = 51922-5) [facility] CenterPT/[id number] 06:12:00 Test Item Value Reference Range Interpretation Comments PROTIME (BEAKER) (test 14.4 seconds 11.9-14.2 H code = 759) INR (BEAKER) (test 1.15 See_Comment [Automat ed code = 370) message] The sy stem which generated this result transmitted reference range : <=5.90. The reference range was not used to interpret this result as normal/abnormal . PARTIAL THROMBOPLASTIN 28.8 seconds 22.5-36.0 TIME (BEAKER) (test code = 760) Effective 11/01/2018: PT Reference Range ChangeNew: 11.9-14.2 Previous: 11.7- 14.7RECOMMENDED COUMADIN/WARFARIN INR THERAPY RANGESSTANDARD DOSE: 2.0-3.0 Includes: PROPHYLAXIS for venous thrombosis, systemic embolization; TREATMENT for venous thrombosis and/or pulmonary embolus.HIGH RISK: Target INR is2.5-3.5 for patients wiht mechanical heart valves.BASIC METABOLIC [id number] 06:11:00 Test Item Value Reference Range Interpretation Comments SODIUM (BEAKER) 139 meq/L 136-145 (test code = 381) POTASSIUM (BEAKER) 4.1 meq/L 3.5-5.1 (test code = 379) CHLORIDE (BEAKER) 100 meq/L 98-107 (test code = 382) CO2 (BEAKER) (test 27 meq/L 22-29 code = 355) BLOOD UREA NITROGEN 32 mg/dL 7-21 H (BEAKER) (test code = 354) CREATININE (BEAKER) 1.43 mg/dL 0.57-1.25 H (test code = 358) GLUCOSE RANDOM 169 mg/dL 70-105 H (BEAKER) (test code = 652) CALCIUM (BEAKER) 9.0 mg/dL 8.4-10.2 (test code = 697) EGFR (BEAKER) (test 49 mL/min/1.73 ESTIMA SUSIE GFR IS code = 1092) sq m NOT ACCURATE CREATININE CLEARANCE IN PREDICTING GLOMERULAR FILTRATION RATE . ESTIMATED GFR I S NOT APPLICABLE FOR DIALYSIS PATIEN TS. Chocolate Temperer ID - [id number] 06:11:00 Test Item Value Reference Range Interpretation Comments MAGNESIUM (BEAKER) (test code = 2.1 mg/dL 1.6-2.6 627) Chocolate Temperer ID - [id number] 06:11:00 Test Item Value Reference Range Interpretation Comments PHOSPHORUS (BEAKER) (test code = 3.7 mg/dL 2.3-4.7 604) Chocolate Temperer ID - DBCBC W/PLT COUNT & AUTO [id number] 05:54:00 Test Item Value Reference Range Interpretation Comments WHITE BLOOD CELL COUNT (BEAKER) 11.7 K/ L 3.5-10.5 H (test code = 775) RED BLOOD CELL COUNT (BEAKER) 4.32 M/ L 4.63-6.08 L (test code = 761) HEMOGLOBIN (BEAKER) (test code = 11.8 GM/DL 13.7-17.5 L 410) HEMATOCRIT (BEAKER) (test code = 37.0 % 40.1-51.0 L 411) MEAN CORPUSCULAR VOLUME (BEAKER) 85.6 fL 79.0-92.2 (test code = 753) MEAN CORPUSCULAR HEMOGLOBIN 27.3 pg 25.7-32.2 (BEAKER) (test code = 751) MEAN CORPUSCULAR HEMOGLOBIN CONC 31.9 GM/DL 32.3-36.5 L (BEAKER) (test code = 752) RED CELL DISTRIBUTION WIDTH 15.9 % 11.6-14.4 H (BEAKER) (test code = 412) PLATELET COUNT (BEAKER) (test 177 K/CU MM 150-450 code = 756) MEAN PLATELET VOLUME (BEAKER) 11.3 fL 9.4-12.4 (test code = 754) NUCLEATED RED BLOOD CELLS 0 /100 WBC 0-0 (BEAKER) (test code = 413) NEUTROPHILS RELATIVE PERCENT 77 % (BEAKER) (test code = 429) LYMPHOCYTES RELATIVE PERCENT 12 % (BEAKER) (test code = 430) MONOCYTES RELATIVE PERCENT 9 % (BEAKER) (test code = 431) EOSINOPHILS RELATIVE PERCENT 2 % (BEAKER) (test code = 432) BASOPHILS RELATIVE PERCENT 1 % (BEAKER) (test code = 437) NEUTROPHILS ABSOLUTE COUNT 8.97 K/ L 1.78-5.38 H (BEAKER) (test code = 670) LYMPHOCYTES ABSOLUTE COUNT 1.42 K/ L 1.32-3.57 (BEAKER) (test code = 414) MONOCYTES ABSOLUTE COUNT (BEAKER) 1.00 K/ L 0.30-0.82 H (test code = 415) EOSINOPHILS ABSOLUTE COUNT 0.17 K/ L 0.04-0.54 (BEAKER) (test code = 416) BASOPHILS ABSOLUTE COUNT (BEAKER) 0.06 K/ L 0.01-0.08 (test code = 417) IMMATURE GRANULOCYTES-RELATIVE 1 % 0-1 PERCENT (BEAKER) (test code = 2801) CALCIUM, [id number] 05:33:00 Test Item Value Reference Range Interpretation Comments CALCIUM IONIZED (BEAKER) (test 1.12 mmol/L 1.12-1.27 code = 698) PH, BLOOD (BEAKER) (test code = 7.41 1810) RAD, CHEST, 1 VIEW, NON [id number] 04:45:00Reason for exam:->acute respiratory failureShould this be performed at the bedside?->Yes [facility] 1950 Sex: MFINAL REPORT CLINICAL INDICATION: Acute respiratory failure Co mparison: 09/21/2020 The cardiomediastinal contours are stable. Central pulmonary vascular prominenceand bilateral parenchymal opacities are partially improved, suggesting improving pulmonary edema. There is a small right pleural effusion. There is no pneumothorax. Signed: Samantha Mendieta Verified Date/Time: 09/22/2020 04:45:51 POCT-GLUCOSE [id number] 22:15:00 Test Item Value Reference Range Interpretation Comments POC-GLUCOSE METER 146 mg/dL 70-110 H : TESTED A T [facility] 6720 (BEAKER) (test code = IDRIS ARRIAZA ND, 1538) 00348: Chocolate Temperer/Techni hilary ID = [id number] for JORGE HOLLAND [id number] 17:46:00 Test Item Value Reference Range Interpretation Comments Potassium (test code = 4.9 meq/L 3.5-5.1 Speci men 2823-3) slightly hemolyzed KANCHAN (test code = KANCHAN) Chocolate Temperer ID - DB Lab Interpretation Normal (test code = 01926-4) [facility] 17:46:00 Test Item Value Reference Range Interpretation Comments POTASSIUM (BEAKER) 4.9 meq/L 3.5-5.1 Specimen slightly (test code = 379) hemolyzed Chocolate Temperer ID - DBPOCT-GLUCOSE [id number] 17:22:00 Test Item Value Reference Range Interpretation Comments POC-GLUCOSE METER 259 mg/dL 70-110 H : Notified RN/MD: TESTED (BEAKER) (test code AT [facility] [address] = 1538) [facility], 770 30: Chocolate Temperer/Techni hilary ID = [id number] for Anna jeffers (contract)Mark MRSA [id number] 15:04:00 Test Item Value Reference Range Interpretation Comments Result (test code = 6463-4) No MRSA isolated [facility] CenterMRSA [id number] 15:04:00 Test Item Value Reference Range Interpretation Comments CULTURE (MALIK) (test code No MRSA isolated = 1095) POCT-GLUCOSE [id number] 12:21:00 Test Item Value Reference Range Interpretation Comments POC-GLUCOSE METER 268 mg/dL 70-110 H : Notified RN/MD: TESTED (MALIK) (test code AT [facility] [address] = 1538) [facility], [facility] 30: Chocolate Temperer/Techni hilary ID = [id number] for Anna jeffers (contract)Mark Vancomycin level, [id number] 10:28:00 Test Item Value Reference Range Interpretation Comments Vancomycin Tr (test code = 14.9 ug/mL 10-20 4092-3) KANCHAN (test code = KANCHAN) Chocolate Temperer ID - EDASI Lab Interpretation (test Normal code = 80821-0) [facility] CenterVANCOMYCIN LEVEL, [id number] 10:28:00 Test Item Value Reference Range Interpretation Comments VANCOMYCIN TROUGH (STARLAAKER) (test 14.9 ug/mL 10.0-20.0 code = 522) Chocolate Temperer ID - [id number] 10:24:00 Test Item Value Reference Range Interpretation Comments POTASSIUM (BEAKER) (test code = 4.1 meq/L 3.5-5.1 379) Chocolate Temperer ID - [id number] 09:58:00 Test Item Value Reference Range Interpretation Comments MAGNESIUM (BEAKER) 2.1 mg/dL 1.6-2.6 Specimen slightly (test code = 627) hemolyzed Chocolate Temperer ID - [id number] 09:58:00 Test Item Value Reference Range Interpretation Comments POTASSIUM (BEAKER) 4.3 meq/L 3.5-5.1 Specimen slightly (test code = 379) hemolyzed Chocolate Temperer ID - EDASIPOCT-GLUCOSE [id number] 08:15:00 Test Item Value Reference Range Interpretation Comments POC-GLUCOSE METER 124 mg/dL 70-110 H : TESTED A T [facility] 6720 (BEAKER) (test code = [place], 1538) [address]: Chocolate Temperer/Techni hilary ID = [id number] for Am inJayshree pruitt BASIC METABOLIC [id number] 04:08:00 Test Item Value Reference Range Interpretation Comments SODIUM (BEAKER) 139 meq/L 136-145 (test code = 381) POTASSIUM (BEAKER) 3.9 meq/L 3.5-5.1 (test code = 379) CHLORIDE (BEAKER) 98 meq/L 98-107 (test code = 382) CO2 (BEAKER) (test 32 meq/L 22-29 H code = 355) BLOOD UREA NITROGEN 32 mg/dL 7-21 H (BEAKER) (test code = 354) CREATININE (BEAKER) 1.34 mg/dL 0.57-1.25 H (test code = 358) GLUCOSE RANDOM 158 mg/dL 70-105 H (BEAKER) (test code = 652) CALCIUM (BEAKER) 8.6 mg/dL 8.4-10.2 (test code = 697) EGFR (BEAKER) (test 53 mL/min/1.73 ESTIMA SUSIE GFR IS code = 1092) sq m NOT ACCURATE CREATININE CLEARANCE IN PREDICTING GLOMERULAR FILTRATION RATE . ESTIMATED GFR I S NOT APPLICABLE FOR DIALYSIS PATIEN TS. Chocolate Temperer ID - [id number] 04:08:00 Test Item Value Reference Range Interpretation Comments MAGNESIUM (BEAKER) (test code = 2.4 mg/dL 1.6-2.6 627) Chocolate Temperer ID - [id number] 04:08:00 Test Item Value Reference Range Interpretation Comments PHOSPHORUS (BEAKER) (test code = 3.7 mg/dL 2.3-4.7 604) Chocolate Temperer ID - EDASICALCIUM, [id number] 03:59:00 Test Item Value Reference Range Interpretation Comments CALCIUM IONIZED (BEAKER) (test 1.14 mmol/L 1.12-1.27 code = 698) PH, BLOOD (BEAKER) (test code = 7.38 1810) [id number] 03:53:00 Test Item Value Reference Range Interpretation Comments PROTIME (BEAKER) (test 15.7 seconds 11.9-14.2 H code = 759) INR (BEAKER) (test 1.30 See_Comment [Automat ed code = 370) message] The sy stem which generated this result transmitted reference range : <=5.90. The reference range was not used to interpret this result as normal/abnormal . PARTIAL THROMBOPLASTIN 28.4 seconds 22.5-36.0 TIME (BEAKER) (test code = 760) Effective 11/01/2018: PT Reference Range ChangeNew: 11.9-14.2 Previous: 11.7- 14.7RECOMMENDED COUMADIN/WARFARIN INR THERAPY RANGESSTANDARD DOSE: 2.0-3.0 Includes: PROPHYLAXIS for venous thrombosis, systemic embolization; TREATMENT for venous thrombosis and/or pulmonary embolus.HIGH RISK: Target INR is2.5-3.5 for patients wiht mechanical heart valves.CBC W/PLT COUNT & AUTO [id number] 03:45:00 Test Item Value Reference Range Interpretation Comments WHITE BLOOD CELL COUNT (BEAKER) 11.3 K/ L 3.5-10.5 H (test code = 775) RED BLOOD CELL COUNT (BEAKER) 4.14 M/ L 4.63-6.08 L (test code = 761) HEMOGLOBIN (BEAKER) (test code = 11.3 GM/DL 13.7-17.5 L 410) HEMATOCRIT (BEAKER) (test code = 35.6 % 40.1-51.0 L 411) MEAN CORPUSCULAR VOLUME (BEAKER) 86.0 fL 79.0-92.2 (test code = 753) MEAN CORPUSCULAR HEMOGLOBIN 27.3 pg 25.7-32.2 (BEAKER) (test code = 751) MEAN CORPUSCULAR HEMOGLOBIN CONC 31.7 GM/DL 32.3-36.5 L (BEAKER) (test code = 752) RED CELL DISTRIBUTION WIDTH 15.7 % 11.6-14.4 H (BEAKER) (test code = 412) PLATELET COUNT (BEAKER) (test 186 K/CU MM 150-450 code = 756) MEAN PLATELET VOLUME (BEAKER) 10.5 fL 9.4-12.4 (test code = 754) NUCLEATED RED BLOOD CELLS 0 /100 WBC 0-0 (BEAKER) (test code = 413) NEUTROPHILS RELATIVE PERCENT 78 % (BEAKER) (test code = 429) LYMPHOCYTES RELATIVE PERCENT 12 % (BEAKER) (test code = 430) MONOCYTES RELATIVE PERCENT 9 % (BEAKER) (test code = 431) EOSINOPHILS RELATIVE PERCENT 0 % (BEAKER) (test code = 432) BASOPHILS RELATIVE PERCENT 0 % (BEAKER) (test code = 437) NEUTROPHILS ABSOLUTE COUNT 8.86 K/ L 1.78-5.38 H (BEAKER) (test code = 670) LYMPHOCYTES ABSOLUTE COUNT 1.34 K/ L 1.32-3.57 (BEAKER) (test code = 414) MONOCYTES ABSOLUTE COUNT (BEAKER) 0.96 K/ L 0.30-0.82 H (test code = 415) EOSINOPHILS ABSOLUTE COUNT 0.04 K/ L 0.04-0.54 (BEAKER) (test code = 416) BASOPHILS ABSOLUTE COUNT (BEAKER) 0.02 K/ L 0.01-0.08 (test code = 417) IMMATURE GRANULOCYTES-RELATIVE 1 % 0-1 PERCENT (BEAKER) (test code = 2801) RAD, CHEST, 1 VIEW, NON [id number] 03:34:00Reason for exam:->acute respiratory failureShould this be performed at the bedside?->Yes [facility] 1950 Sex: MFINAL REPORT CLINICAL INDICATION: Acute respiratory failure Co mparison: 09/20/2020 The cardiomediastinal contours are stable. Central pulmonary vascular prominent and bilateral parenchymal and pleural opacities are unchanged. There is no pneumothorax. Signed: Samantha Mendieta MDReport Verified Date/Time: 09/21/2020 03:34:21 POCT-GLUCOSE [id number] 00:33:00 Test Item Value Reference Range Interpretation Comments POC-GLUCOSE METER 146 mg/dL 70-110 H : TESTED A T [facility] 6720 (BEAKER) (test code = [facility], 1538) [address]: Chocolate Temperer/Techni hilary ID = [id number] for VIOLET REYNAGA [id number] 18:44:00 Test Item Value Reference Range Interpretation Comments MAGNESIUM (BEAKER) (test code = 2.1 mg/dL 1.6-2.6 627) Chocolate Temperer ID - [id number] 18:44:00 Test Item Value Reference Range Interpretation Comments POTASSIUM (BEAKER) (test code = 4.4 meq/L 3.5-5.1 379) Chocolate Temperer ID - DBPOCT-GLUCOSE [id number] 16:41:00 Test Item Value Reference Range Interpretation Comments POC-GLUCOSE METER 196 mg/dL 70-110 H : TESTED A T [facility] 6720 (BEAKER) (test code = [facility], 153) [address]: Chocolate Temperer/Techni hilary ID = [id number] for KOREY WHATLEY BUN AND CREATININE [id number] 14:04:00 Test Item Value Reference Range Interpretation Comments BLOOD UREA NITROGEN 29 mg/dL 7-21 H (BEAKER) (test code = 354) CREATININE (BEAKER) 1.17 mg/dL 0.57-1.25 Specimen slightly (test code = 358) hemolyzed BUN/CREAT RATIO 25 For a normal (BEAKER) (test code individu al on a = [id number]) normal diet, t he reference inter leatha for the mass ra adelaida ranges between 12:1 and 20:1 (BUN i n mg/dL/creatinin e in mg/dL) EGFR (BEAKER) (test 62 mL/min/1.73 ESTIMA SUSIE GFR IS code = 1092) sq m NOT ACCURATE CREATININE CLEARANCE IN PREDICTING GLOMERULAR FILTRATION RATE . ESTIMATED GFR I S NOT APPLICABLE FOR DIALYSIS PATIEN TS. Chocolate Temperer ID - CECILE MPOCT-GLUCOSE [id number] 11:47:00 Test Item Value Reference Range Interpretation Comments POC-GLUCOSE METER 228 mg/dL 70-110 H : TESTED A T [facility] [address] (BEAKER) (test code = [place], 1538) [address]: Chocolate Temperer/Techni hilary ID = [id number] for KOREY WHATLEY [id number] 11:05:00 Test Item Value Reference Range Interpretation Comments PARTIAL THROMBOPLASTIN TIME 30.5 seconds 22.5-36.0 (BEAKER) (test code = 760) Blood gas, [id number] 10:52:00 Test Item Value Reference Range Interpretation Comments pH, Arterial (test code 7.47 7.35-7.45 H = 2744-1) pCO2, Arterial (test 43 See_Comment [Autom ated message] code = 2019-8) The system [facility] generated this result transmit susie reference range : 35 - 45 mm Hg. The reference range was not used to interpret this result as normal/abnormal . pO2, Arterial (test 107 See_Comment H [Automa susie message] code = 2703-7) The system [facility] generated this result transmit susie reference range : 80 - 90 mm Hg. The reference range was not used to interpret this result as normal/abnormal . O2 Sat, Arterial (test 98.2 % 96-97 H code = 2708-6) HCO3, Arterial (test 30 mmol/L 21-29 H code = 1960-4) Base Excess, Arterial 5.8 mmol/L -2-3 H (test code = 1925-7) Patient Temperature 36.5 (test code = 8310-5) FIO2 (test code = 1819) 21 Lab Interpretation Abnormal (test code = 64589-8) [facility] CenterBL[facility] G[facility], [id number] 10:52:00 Test Item Value Reference Range Interpretation Comments PH ARTERIAL (BEAKER) (test code = 7.47 7.35-7.45 H 383) PCO2 ARTERIAL (BEAKER) (test code 43 mm Hg 35-45 = 384) PO2 ARTERIAL (BEAKER) (test code = 107 mm Hg 80-90 H 385) O2 SATURATION ARTERIAL (BEAKER) 98.2 % 96.0-97.0 H (test code = 386) HCO3 ARTERIAL (BEAKER) (test code 30 mmol/L 21-29 H = 388) BASE EXCESS ARTERIAL (BEAKER) 5.8 mmol/L -2.0-3.0 H (test code = 387) PATIENT TEMPERATURE (BEAKER) (test 36.5 code = 1818) FIO2 (BEAKER) (test code = 1819) 21.0 Blood gas, [id number] 10:44:00 Test Item Value Reference Range Interpretation Comments pH, Johan (test code = 7.38 7.32-7.42 2746-6) pCO2, Johan (test code = 62 See_Comment H [Aut omated message] 755) The system [employer] h generated this result transmit susie reference range : 41 - 51 mm Hg. The reference range was not used to interpret this result as normal/abnormal . pO2, Johan (test code = 26 See_Comment [Auto mated message] 6995-2) The system [employer] h generated this result transmit susie reference range : 25 - 40 mm Hg. The reference range was not used to interpret this result as normal/abnormal . O2 Sat, Johan (test code 43.6 % 40-70 = 2711-0) HCO3, Johan (test code = 36 mmol/L 21-29 H 96518-3) Base Excess, Johan (test 9.2 mmol/L -2-3 H code = 1927-3) Patient Temperature 37.0 (test code = 8310-5) FIO2 (test code = 1819) 21 Lab Interpretation Abnormal (test code = 31360-8) [facility] CenterBL[facility]OD GAS, [id number] 10:44:00 Test Item Value Reference Range Interpretation Comments PH VENOUS (BEAKER) (test code = 7.38 7.32-7.42 701) PCO2 VENOUS (BEAKER) (test code = 62 mm Hg 41-51 H 755) PO2 VENOUS (BEAKER) (test code = 26 mm Hg 25-40 702) O2 SATURATION VENOUS (BEAKER) 43.6 % 40.0-70.0 (test code = 703) HCO3 VENOUS (BEAKER) (test code = 36 mmol/L 21-29 H 705) BASE EXCESS VENOUS (BEAKER) (test 9.2 mmol/L -2.0-3.0 H code = 704) PATIENT TEMPERATURE (BEAKER) (test 37.0 code = 1818) FIO2 (BEAKER) (test code = 1819) 21.0 [id number] 09:04:00 Test Item Value Reference Range Interpretation Comments MAGNESIUM (BEAKER) 2.2 mg/dL 1.6-2.6 Specimen slightly (test code = 627) hemolyzed Chocolate Temperer ID - CECILE [id number] 09:04:00 Test Item Value Reference Range Interpretation Comments POTASSIUM (BEAKER) 4.6 meq/L 3.5-5.1 Specimen slightly (test code = 379) hemolyzed Chocolate Temperer ID - CECILE MVANCOMYCIN LEVEL, [id number] 09:00:00 Test Item Value Reference Range Interpretation Comments VANCOMYCIN TROUGH (BEAKER) (test 13.9 ug/mL 10.0-20.0 code = 522) Chocolate Temperer ID - CECILE MPOCT-GLUCOSE [id number] 07:38:00 Test Item Value Reference Range Interpretation Comments POC-GLUCOSE METER 113 mg/dL 70-110 H : [facility] (test code = [facility] [place] [facility], 1538) [address]: Chocolate Temperer/Techni hilary ID = [id number] for KOREY WHATLEY [id number] 05:10:00 Test Item Value Reference Range Interpretation Comments PROTIME (BEAKER) (test 18.3 seconds 11.9-14.2 H code = 759) INR (BEAKER) (test 1.56 See_Comment [Automat ed code = 370) message] The sy stem which generated this result transmitted reference range : <=5.90. The reference range was not used to interpret this result as normal/abnormal . PARTIAL THROMBOPLASTIN 33.7 seconds 22.5-36.0 TIME (BEAKER) (test code = 760) Effective 11/01/2018: PT Reference Range ChangeNew: 11.9-14.2 Previous: 11.7- 14.7RECOMMENDED COUMADIN/WARFARIN INR THERAPY RANGESSTANDARD DOSE: 2.0-3.0 Includes: PROPHYLAXIS for venous thrombosis, systemic embolization; TREATMENT for venous thrombosis and/or pulmonary embolus.HIGH RISK: Target INR is2.5-3.5 for patients wiht mechanical heart valves.COMPREHENSIVE METABOLIC PANEL 2020-09-20 05:06:00 Test Item Value Reference Range Interpretation Comments TOTAL PROTEIN 6.4 gm/dL 6.0-8.3 (BEAKER) (test code = 770) ALBUMIN (BEAKER) 3.4 g/dL 3.5-5.0 L (test code = 1145) ALKALINE PHOSPHATASE 67 U/L 40-150 (BEAKER) (test code = 346) BILIRUBIN TOTAL 0.8 mg/dL 0.2-1.2 (BEAKER) (test code = 377) SODIUM (BEAKER) (test 137 meq/L 136-145 code = 381) POTASSIUM (BEAKER) 4.2 meq/L 3.5-5.1 (test code = 379) CHLORIDE (BEAKER) 99 meq/L 98-107 (test code = 382) CO2 (BEAKER) (test 30 meq/L 22-29 H code = 355) BLOOD UREA NITROGEN 32 mg/dL 7-21 H (BEAKER) (test code = 354) CREATININE (BEAKER) 1.09 mg/dL 0.57-1.25 (test code = 358) GLUCOSE RANDOM 135 mg/dL 70-105 H (BEAKER) (test code = 652) CALCIUM (BEAKER) 8.7 mg/dL 8.4-10.2 (test code = 697) AST (SGOT) (BEAKER) 14 U/L 5-34 (test code = 353) ALT (SGPT) (BEAKER) 20 U/L 6-55 (test code = 347) EGFR (BEAKER) (test 67 mL/min/1.73 ESTIMA SUSIE GFR IS code = 1092) sq m NOT ACCURATE CREATININE CLEARANCE IN PREDICTING GLOMERULAR FILTRATION RATE . ESTIMATED GFR I S NOT APPLICABLE FOR DIALYSIS PATIEN TS. Chocolate Temperer ID - CECILE [id number] 05:06:00 Test Item Value Reference Range Interpretation Comments MAGNESIUM (BEAKER) (test code = 2.2 mg/dL 1.6-2.6 627) Chocolate Temperer ID - CECILE [id number] 05:06:00 Test Item Value Reference Range Interpretation Comments PHOSPHORUS (BEAKER) (test code = 3.4 mg/dL 2.3-4.7 604) Chocolate Temperer ID - CECILE MBLOOD GAS, [id number] 04:47:00 Test Item Value Reference Range Interpretation Comments PH ARTERIAL (BEAKER) (test code = 7.44 7.35-7.45 383) PCO2 ARTERIAL (BEAKER) (test code 45 mm Hg 35-45 = 384) PO2 ARTERIAL (BEAKER) (test code = 229 mm Hg 80-90 H 385) O2 SATURATION ARTERIAL (BEAKER) 99.5 % 96.0-97.0 H (test code = 386) HCO3 ARTERIAL (BEAKER) (test code 30 mmol/L 21-29 H = 388) BASE EXCESS ARTERIAL (BEAKER) 4.9 mmol/L -2.0-3.0 H (test code = 387) PATIENT TEMPERATURE (BEAKER) (test 37.0 code = 1818) FIO2 (BEAKER) (test code = 1819) 100.0 CALCIUM, [id number] 04:45:00 Test Item Value Reference Range Interpretation Comments CALCIUM IONIZED (BEAKER) (test 1.15 mmol/L 1.12-1.27 code = 698) PH, BLOOD (BEAKER) (test code = 7.44 1810) CBC W/PLT COUNT & AUTO [id number] 04:45:00 Test Item Value Reference Range Interpretation Comments WHITE BLOOD CELL COUNT (BEAKER) 8.9 K/ L 3.5-10.5 (test code = 775) RED BLOOD CELL COUNT (BEAKER) 3.83 M/ L 4.63-6.08 L (test code = 761) HEMOGLOBIN (BEAKER) (test code = 10.5 GM/DL 13.7-17.5 L 410) HEMATOCRIT (BEAKER) (test code = 32.9 % 40.1-51.0 L 411) MEAN CORPUSCULAR VOLUME (BEAKER) 85.9 fL 79.0-92.2 (test code = 753) MEAN CORPUSCULAR HEMOGLOBIN 27.4 pg 25.7-32.2 (BEAKER) (test code = 751) MEAN CORPUSCULAR HEMOGLOBIN CONC 31.9 GM/DL 32.3-36.5 L (BEAKER) (test code = 752) RED CELL DISTRIBUTION WIDTH 15.7 % 11.6-14.4 H (BEAKER) (test code = 412) PLATELET COUNT (BEAKER) (test 195 K/CU MM 150-450 code = 756) MEAN PLATELET VOLUME (BEAKER) 10.5 fL 9.4-12.4 (test code = 754) NUCLEATED RED BLOOD CELLS 0 /100 WBC 0-0 (BEAKER) (test code = 413) NEUTROPHILS RELATIVE PERCENT 77 % (BEAKER) (test code = 429) LYMPHOCYTES RELATIVE PERCENT 12 % (BEAKER) (test code = 430) MONOCYTES RELATIVE PERCENT 8 % (BEAKER) (test code = 431) EOSINOPHILS RELATIVE PERCENT 1 % (BEAKER) (test code = 432) BASOPHILS RELATIVE PERCENT 1 % (BEAKER) (test code = 437) NEUTROPHILS ABSOLUTE COUNT 6.83 K/ L 1.78-5.38 H (BEAKER) (test code = 670) LYMPHOCYTES ABSOLUTE COUNT 1.10 K/ L 1.32-3.57 L (BEAKER) (test code = 414) MONOCYTES ABSOLUTE COUNT (BEAKER) 0.72 K/ L 0.30-0.82 (test code = 415) EOSINOPHILS ABSOLUTE COUNT 0.10 K/ L 0.04-0.54 (BEAKER) (test code = 416) BASOPHILS ABSOLUTE COUNT (BEAKER) 0.04 K/ L 0.01-0.08 (test code = 417) IMMATURE GRANULOCYTES-RELATIVE 1 % 0-1 PERCENT (BEAKER) (test code = 2801) RAD, CHEST, 1 VIEW, NON [id number] 03:43:00Reason for exam:->acute respiratory failureShould this be performed at the bedside?->Yes [facility] : 1950 Sex: MFINAL REPORT RAD, CHEST, 1 VIEW, NON DEPT INDICATION: acute res piratory failure COMPARISON: Prior day's exam FINDINGS: Portable frontal view of the chest. IMPRESSION: Support Lines: Stable. Lungs and pleura: Unchanged airspace and pleural opacities when allowing for differences in technique.. No pneumothorax.Heart and mediastinum: Stable contours. Stable surgical changes.Additional findings: None. Signed: Tegan Johns Verified Date/Time: 09/20/2020 03:43:21 [id number] 00:39:00 Test Item Value Reference Range Interpretation Comments POTASSIUM (BEAKER) (test code = 3.8 meq/L 3.5-5.1 379) Chocolate Temperer ID - SHU CPOCT-GLUCOSE [id number] 21:41:00 Test Item Value Reference Range Interpretation Comments POC-GLUCOSE METER 194 mg/dL 70-110 H : TESTED A T [facility] 6720 (BEAKER) (test code = [place], 1538) [address]: Chocolate Temperer/Techni hilary ID = [id number] for JORGE HOLLAND Blood Culture - Routine (Left Venipuncture)2020-09-19 19:01:00 Test Item Value Reference Range Interpretation Comments Result (test code = No growth in 5 days 6463-4) [facility]BL[facility] [id number] 19:01:00 Test Item Value Reference Range Interpretation Comments CULTURE (BEAKER) (test No growth in 5 days code = 1095) BLOOD [id number] 19:01:00 Test Item Value Reference Range Interpretation Comments CULTURE (BEAKER) (test No growth in 5 days code = 1095) [id number] 17:22:00 Test Item Value Reference Range Interpretation Comments MAGNESIUM (BEAKER) 2.5 mg/dL 1.6-2.6 Specimen slightly (test code = 627) hemolyzed Chocolate Temperer ID - SHU CBASIC METABOLIC [id number] 17:22:00 Test Item Value Reference Range Interpretation Comments SODIUM (BEAKER) 136 meq/L 136-145 (test code = 381) POTASSIUM (BEAKER) 5.2 meq/L 3.5-5.1 H Specimen slightly (test code = 379) hemolyzed CHLORIDE (BEAKER) 95 meq/L 98-107 L (test code = 382) CO2 (BEAKER) (test 33 meq/L 22-29 H code = 355) BLOOD UREA NITROGEN 33 mg/dL 7-21 H (BEAKER) (test code = 354) CREATININE (BEAKER) 1.36 mg/dL 0.57-1.25 H Specimen slightly (test code = 358) hemolyzed GLUCOSE RANDOM 212 mg/dL 70-105 H (BEAKER) (test code = 652) CALCIUM (BEAKER) 8.8 mg/dL 8.4-10.2 (test code = 697) EGFR (BEAKER) (test 52 mL/min/1.73 ESTIMA SUSIE GFR IS code = 1092) sq m NOT ACCURATE CREATININE CLEARANCE IN PREDICTING GLOMERULAR FILTRATION RATE . ESTIMATED GFR I S NOT APPLICABLE FOR DIALYSIS PATIEN TS. Chocolate Temperer ID - SHU CPOCT-GLUCOSE [id number] 11:30:00 Test Item Value Reference Range Interpretation Comments POC-GLUCOSE METER 168 mg/dL 70-110 H : TESTED A T [facility] 6720 (BEAKER) (test code = [facility] [place] [facility], 1538) [address]: Chocolate Temperer/Techni hilary ID = [id number] for KOREY WHATLEY [id number] 11:01:00 Test Item Value Reference Range Interpretation Comments MAGNESIUM (BEAKER) 2.3 mg/dL 1.6-2.6 Specimen slightly (test code = 627) hemolyzed Chocolate Temperer ID - SHU [id number] 11:01:00 Test Item Value Reference Range Interpretation Comments POTASSIUM (BEAKER) 4.8 meq/L 3.5-5.1 Specimen slightly (test code = 379) hemolyzed Chocolate Temperer ID - SHU CBLOOD GAS, [id number] 05:34:00 Test Item Value Reference Range Interpretation Comments PH ARTERIAL (BEAKER) (test code = 7.41 7.35-7.45 383) PCO2 ARTERIAL (BEAKER) (test code 53 mm Hg 35-45 H = 384) PO2 ARTERIAL (BEAKER) (test code = 173 mm Hg 80-90 H 385) O2 SATURATION ARTERIAL (BEAKER) 99.2 % 96.0-97.0 H (test code = 386) HCO3 ARTERIAL (BEAKER) (test code 33 mmol/L 21-29 H = 388) BASE EXCESS ARTERIAL (BEAKER) 7.1 mmol/L -2.0-3.0 H (test code = 387) PATIENT TEMPERATURE (BEAKER) (test 37.0 code = 1818) FIO2 (BEAKER) (test code = 1819) 45.0 CALCIUM, [id number] 05:34:00 Test Item Value Reference Range Interpretation Comments CALCIUM IONIZED (BEAKER) (test 1.11 mmol/L 1.12-1.27 L code = 698) PH, BLOOD (BEAKER) (test code = 7.41 1810) COMPREHENSIVE METABOLIC [id number] 04:55:00 Test Item Value Reference Range Interpretation Comments TOTAL PROTEIN 6.0 gm/dL 6.0-8.3 (BEAKER) (test code = 770) ALBUMIN (BEAKER) 3.2 g/dL 3.5-5.0 L (test code = 1145) ALKALINE PHOSPHATASE 61 U/L 40-150 (BEAKER) (test code = 346) BILIRUBIN TOTAL 0.8 mg/dL 0.2-1.2 (BEAKER) (test code = 377) SODIUM (BEAKER) (test 139 meq/L 136-145 code = 381) POTASSIUM (BEAKER) 3.9 meq/L 3.5-5.1 (test code = 379) CHLORIDE (BEAKER) 99 meq/L 98-107 (test code = 382) CO2 (BEAKER) (test 31 meq/L 22-29 H code = 355) BLOOD UREA NITROGEN 31 mg/dL 7-21 H (BEAKER) (test code = 354) CREATININE (BEAKER) 1.10 mg/dL 0.57-1.25 (test code = 358) GLUCOSE RANDOM 150 mg/dL 70-105 H (BEAKER) (test code = 652) CALCIUM (BEAKER) 8.2 mg/dL 8.4-10.2 L (test code = 697) AST (SGOT) (BEAKER) 13 U/L 5-34 (test code = 353) ALT (SGPT) (BEAKER) 21 U/L 6-55 (test code = 347) EGFR (BEAKER) (test 66 mL/min/1.73 ESTIMA SUSIE GFR IS code = 1092) sq m NOT ACCURATE CREATININE CLEARANCE IN PREDICTING GLOMERULAR FILTRATION RATE . ESTIMATED GFR I S NOT APPLICABLE FOR DIALYSIS PATIEN TS. Chocolate Temperer ID - [id number] 04:55:00 Test Item Value Reference Range Interpretation Comments MAGNESIUM (BEAKER) (test code = 2.3 mg/dL 1.6-2.6 627) Chocolate Temperer ID - [id number] 04:55:00 Test Item Value Reference Range Interpretation Comments PHOSPHORUS (BEAKER) (test code = 3.4 mg/dL 2.3-4.7 604) Chocolate Temperer ID - [id number] 04:40:00 Test Item Value Reference Range Interpretation Comments PROTIME (BEAKER) (test 20.4 seconds 11.9-14.2 H code = 759) INR (BEAKER) (test 1.82 See_Comment [Automat ed code = 370) message] The sy stem which generated this result transmitted reference range : <=5.90. The reference range was not used to interpret this result as normal/abnormal . PARTIAL THROMBOPLASTIN 38.8 seconds 22.5-36.0 H TIME (BEAKER) (test code = 760) Effective 11/01/2018: PT Reference Range ChangeNew: 11.9-14.2 Previous: 11.7- 14.7RECOMMENDED COUMADIN/WARFARIN INR THERAPY RANGESSTANDARD DOSE: 2.0-3.0 Includes: PROPHYLAXIS for venous thrombosis, systemic embolization; TREATMENT for venous thrombosis and/or pulmonary embolus.HIGH RISK: Target INR is2.5-3.5 for patients wiht mechanical heart valves.CBC W/PLT COUNT & AUTO [id number] 04:29:00 Test Item Value Reference Range Interpretation Comments WHITE BLOOD CELL COUNT (BEAKER) 8.3 K/ L 3.5-10.5 (test code = 775) RED BLOOD CELL COUNT (BEAKER) 3.40 M/ L 4.63-6.08 L (test code = 761) HEMOGLOBIN (BEAKER) (test code = 9.3 GM/DL 13.7-17.5 L 410) HEMATOCRIT (BEAKER) (test code = 29.4 % 40.1-51.0 L 411) MEAN CORPUSCULAR VOLUME (BEAKER) 86.5 fL 79.0-92.2 (test code = 753) MEAN CORPUSCULAR HEMOGLOBIN 27.4 pg 25.7-32.2 (BEAKER) (test code = 751) MEAN CORPUSCULAR HEMOGLOBIN CONC 31.6 GM/DL 32.3-36.5 L (BEAKER) (test code = 752) RED CELL DISTRIBUTION WIDTH 15.8 % 11.6-14.4 H (BEAKER) (test code = 412) PLATELET COUNT (BEAKER) (test 201 K/CU MM 150-450 code = 756) MEAN PLATELET VOLUME (BEAKER) 10.8 fL 9.4-12.4 (test code = 754) NUCLEATED RED BLOOD CELLS 0 /100 WBC 0-0 (BEAKER) (test code = 413) NEUTROPHILS RELATIVE PERCENT 80 % (BEAKER) (test code = 429) LYMPHOCYTES RELATIVE PERCENT 10 % (BEAKER) (test code = 430) MONOCYTES RELATIVE PERCENT 8 % (BEAKER) (test code = 431) EOSINOPHILS RELATIVE PERCENT 1 % (BEAKER) (test code = 432) BASOPHILS RELATIVE PERCENT 0 % (BEAKER) (test code = 437) NEUTROPHILS ABSOLUTE COUNT 6.63 K/ L 1.78-5.38 H (BEAKER) (test code = 670) LYMPHOCYTES ABSOLUTE COUNT 0.81 K/ L 1.32-3.57 L (BEAKER) (test code = 414) MONOCYTES ABSOLUTE COUNT (BEAKER) 0.70 K/ L 0.30-0.82 (test code = 415) EOSINOPHILS ABSOLUTE COUNT 0.07 K/ L 0.04-0.54 (BEAKER) (test code = 416) BASOPHILS ABSOLUTE COUNT (BEAKER) 0.02 K/ L 0.01-0.08 (test code = 417) IMMATURE GRANULOCYTES-RELATIVE 1 % 0-1 PERCENT (BEAKER) (test code = 2801) RAD, CHEST, 1 VIEW, NON [id number] 04:00:00Reason for exam:->acute respiratory failureShould this be performed at the bedside?->Yes [facility] 1950 Sex: MFINAL REPORT CLINICAL INDICATION: Acute respiratory failure Co mparison: 09/18/2020 The cardiomediastinal contours are stable. Central pulmonary vascular congestionand bilateral parenchymal opacities are unchanged. There is no pneumothorax. Signed: Samantha Mendieta Verified Date/Time: 09/19/2020 04:00:10 Electronically signed by: SAMANTHA MENDIETA M.D.on 09/19/2020 04:00 AMPrepare [id number] 23:55:00 Test Item Value Reference Range Interpretation Comments Unit ABO (test code = 7842037) A Pos UNIT NUMBER (test code = [id number] 934-0) Status (test code = 5263102) [place]_TIMEINCHART Blood Bank Product (test code FFP = 2263) PRODUCT CODE (test code = O3096M25 933-2) [facility] [id number] 23:31:00 Test Item Value Reference Range Interpretation Comments POTASSIUM (BEAKER) 4.4 meq/L 3.5-5.1 Specimen slightly (test code = 379) hemolyzed Chocolate Temperer ID - DBPOCT-GLUCOSE [id number] 21:37:00 Test Item Value Reference Range Interpretation Comments POC-GLUCOSE METER 146 mg/dL 70-110 H : TESTED A T [facility] 6720 (BEAKER) (test code = [place], 1538) [address]: Chocolate Temperer/Techni hilary ID = [id number] for DO September [id number] 17:01:00 Test Item Value Reference Range Interpretation Comments MAGNESIUM (BEAKER) (test code = 2.4 mg/dL 1.6-2.6 627) Chocolate Temperer ID - [id number] 17:01:00 Test Item Value Reference Range Interpretation Comments POTASSIUM (BEAKER) (test code = 4.9 meq/L 3.5-5.1 379) Chocolate Temperer ID - DBPOCT-GLUCOSE [id number] 16:41:00 Test Item Value Reference Range Interpretation Comments POC-GLUCOSE METER 223 mg/dL 70-110 H : TESTED A T [facility] 6720 (BEAKER) (test code = [facility], 1538) [address]: Chocolate Temperer/Techni hilary ID = [id number] for Darius Garcia POCT-GLUCOSE [id number] 11:33:00 Test Item Value Reference Range Interpretation Comments POC-GLUCOSE METER 154 mg/dL 70-110 H : TESTED A T [facility] 6720 (BEAKER) (test code = [facility], 1538) [address]: Chocolate Temperer/Techni hilary ID = [id number] for ANDREA YING RAD, CHEST, 1 VIEW, NON [id number] 09:59:00Reason for exam:->acute respiratory failure. eval pulm edemaShould [facility] be performed [facility] e?->[facility] : 1950 Sex: MFINAL REPORT CLINICAL HISTORY: acute respiratory failure. eval pulm edema TECHNIQUE: 1 view of the chest. COMPARISON: 09/17/2020 IMPRESSION: Diffuse bilateral airspace opacities are grossly unchanged. A small right effusion is unchanged. The cardiomediastinal silhouette is magnified by technique with sternotomy wires and a pacemaker. Signed: Darius Enciso MDReport Verified Date/Time: 09/18/2020 09:59:30 Reading Location: [facility] Radiology Reading Room COMPREHENSIVE METABOLIC [id number] 09:34:00 Test Item Value Reference Range Interpretation Comments TOTAL PROTEIN 5.8 gm/dL 6.0-8.3 L (BEAKER) (test code = 770) ALBUMIN (BEAKER) 3.1 g/dL 3.5-5.0 L (test code = 1145) ALKALINE PHOSPHATASE 61 U/L 40-150 (BEAKER) (test code = 346) BILIRUBIN TOTAL 0.7 mg/dL 0.2-1.2 (BEAKER) (test code = 377) SODIUM (BEAKER) (test 135 meq/L 136-145 L code = 381) POTASSIUM (BEAKER) 3.7 meq/L 3.5-5.1 (test code = 379) CHLORIDE (BEAKER) 94 meq/L 98-107 L (test code = 382) CO2 (BEAKER) (test 32 meq/L 22-29 H code = 355) BLOOD UREA NITROGEN 32 mg/dL 7-21 H (BEAKER) (test code = 354) CREATININE (BEAKER) 1.13 mg/dL 0.57-1.25 (test code = 358) GLUCOSE RANDOM 120 mg/dL 70-105 H (BEAKER) (test code = 652) CALCIUM (BEAKER) 8.3 mg/dL 8.4-10.2 L (test code = 697) AST (SGOT) (BEAKER) 16 U/L 5-34 (test code = 353) ALT (SGPT) (BEAKER) 20 U/L 6-55 (test code = 347) EGFR (BEAKER) (test 64 mL/min/1.73 ESTIMA SUSIE GFR IS code = 1092) sq m NOT ACCURATE CREATININE CLEARANCE IN PREDICTING GLOMERULAR FILTRATION RATE . ESTIMATED GFR I S NOT APPLICABLE FOR DIALYSIS PATIEN TS. Chocolate Temperer ID - [id number] 09:34:00 Test Item Value Reference Range Interpretation Comments MAGNESIUM (BEAKER) (test code = 2.4 mg/dL 1.6-2.6 627) Chocolate Temperer ID - [id number] 09:34:00 Test Item Value Reference Range Interpretation Comments PHOSPHORUS (BEAKER) (test code = 3.7 mg/dL 2.3-4.7 604) Chocolate Temperer ID - [id number] 09:17:00 Test Item Value Reference Range Interpretation Comments MAGNESIUM (BEAKER) (test code = 2.4 mg/dL 1.6-2.6 627) Chocolate Temperer ID - [id number] 09:17:00 Test Item Value Reference Range Interpretation Comments POTASSIUM (BEAKER) (test code = 3.8 meq/L 3.5-5.1 379) Chocolate Temperer ID - MITULBLOOD GAS, [id number] 08:35:00 Test Item Value Reference Range Interpretation Comments PH ARTERIAL (BEAKER) (test code = 7.42 7.35-7.45 383) PCO2 ARTERIAL (BEAKER) (test code 57 mm Hg 35-45 H = 384) PO2 ARTERIAL (BEAKER) (test code 145 mm Hg 80-90 H = 385) O2 SATURATION ARTERIAL (BEAKER) 98.8 % 96.0-97.0 H (test code = 386) HCO3 ARTERIAL (BEAKER) (test code 36 mmol/L 21-29 H = 388) BASE EXCESS ARTERIAL (BEAKER) 10.3 mmol/L -2.0-3.0 H (test code = 387) PATIENT TEMPERATURE (BEAKER) 37.0 (test code = 1818) FIO2 (BEAKER) (test code = 1819) 45.0 POCT-GLUCOSE [id number] 07:32:00 Test Item Value Reference Range Interpretation Comments POC-GLUCOSE METER 112 mg/dL 70-110 H : TESTED A T [facility] 6720 (BEAKER) (test code = [place], 1538) [address]: Chocolate Temperer/Techni hilary ID = [id number] for ANDREA YING CALCIUM, [id number] 06:27:00 Test Item Value Reference Range Interpretation Comments CALCIUM IONIZED (BEAKER) (test 1.09 mmol/L 1.12-1.27 L code = 698) PH, BLOOD (BEAKER) (test code = 7.42 1810) Daily Prothrombin time/INR while on [id number] 05:55:00 Test Item Value Reference Interpretation Comments Range Protime (test code = 23.7 See_Comment H [Autom ated 5902-2) message] The system which generated this result transmitted reference range : 11.9 - 14.2 seconds. The reference range was not used to interpret this result as normal/abnormal . INR (test code = 2.20 See_Comment [Automated 6301-6) message] The system which generated this result transmitted reference range : <=5.90. The reference range was not used to interpret this result as normal/abnormal . KANCHAN (test code = Effective 11/01/2018: KANCHAN) PT Reference Range ChangeNew: 11.9-14.2 Previous: 11.7-14.7 RECOMMENDED COUMADIN/WARFARIN INR THERAPY RANGESSTANDARD DOSE: 2.0-3.0 Includes: PROPHYLAXIS for venous thrombosis, systemic embolization; TREATMENT for venous thrombosis and/or pulmonary embolus.HIGH RISK: Target INR is 2.5-3.5 for patients wiht mechanical heart valves. While on warfarin. Lab Interpretation Abnormal (test code = 47718-6) [facility] CenterPROTHROMBIN TIME/[id number] 05:55:00 Test Item Value Reference Range Interpretation Comments PROTIME (BEAKER) 23.7 seconds 11.9-14.2 H (test code = 759) INR (BEAKER) (test 2.20 See_Comment [Automat ed message] code = 370) The system ic h generated this result transmitted ref erence range: <=5.90. The reference range was not used to int erpret this result as normal/abnormal . Effective 11/01/2018: PT Reference Range ChangeNew: 11.9-14.2 Previous: 11.7- 14.7RECOMMENDED COUMADIN/WARFARIN INR THERAPY RANGESSTANDARD DOSE: 2.0-3.0 Includes: PROPHYLAXIS for venous thrombosis, systemic embolization; TREATMENT for venous thrombosis and/or pulmonary embolus.HIGH RISK: Target INR is2.5-3.5 for patients wiht mechanical heart valves.While on warfarin.[id number] 05:55:00 Test Item Value Reference Range Interpretation Comments PARTIAL THROMBOPLASTIN TIME 49.7 seconds 22.5-36.0 H (BEAKER) (test code = 760) While on warfarin.CBC W/PLT COUNT & AUTO [id number] 05:46:00 Test Item Value Reference Range Interpretation Comments WHITE BLOOD CELL COUNT (BEAKER) 8.6 K/ L 3.5-10.5 (test code = 775) RED BLOOD CELL COUNT (BEAKER) 3.21 M/ L 4.63-6.08 L (test code = 761) HEMOGLOBIN (BEAKER) (test code = 8.7 GM/DL 13.7-17.5 L 410) HEMATOCRIT (BEAKER) (test code = 27.5 % 40.1-51.0 L 411) MEAN CORPUSCULAR VOLUME (BEAKER) 85.7 fL 79.0-92.2 (test code = 753) MEAN CORPUSCULAR HEMOGLOBIN 27.1 pg 25.7-32.2 (BEAKER) (test code = 751) MEAN CORPUSCULAR HEMOGLOBIN CONC 31.6 GM/DL 32.3-36.5 L (BEAKER) (test code = 752) RED CELL DISTRIBUTION WIDTH 15.9 % 11.6-14.4 H (BEAKER) (test code = 412) PLATELET COUNT (BEAKER) (test 190 K/CU MM 150-450 code = 756) MEAN PLATELET VOLUME (BEAKER) 10.3 fL 9.4-12.4 (test code = 754) NUCLEATED RED BLOOD CELLS 0 /100 WBC 0-0 (BEAKER) (test code = 413) NEUTROPHILS RELATIVE PERCENT 85 % (BEAKER) (test code = 429) LYMPHOCYTES RELATIVE PERCENT 7 % (BEAKER) (test code = 430) MONOCYTES RELATIVE PERCENT 7 % (BEAKER) (test code = 431) EOSINOPHILS RELATIVE PERCENT 0 % (BEAKER) (test code = 432) BASOPHILS RELATIVE PERCENT 0 % (BEAKER) (test code = 437) NEUTROPHILS ABSOLUTE COUNT 7.31 K/ L 1.78-5.38 H (BEAKER) (test code = 670) LYMPHOCYTES ABSOLUTE COUNT 0.61 K/ L 1.32-3.57 L (BEAKER) (test code = 414) MONOCYTES ABSOLUTE COUNT (BEAKER) 0.63 K/ L 0.30-0.82 (test code = 415) EOSINOPHILS ABSOLUTE COUNT 0.01 K/ L 0.04-0.54 L (BEAKER) (test code = 416) BASOPHILS ABSOLUTE COUNT (BEAKER) 0.01 K/ L 0.01-0.08 (test code = 417) IMMATURE GRANULOCYTES-RELATIVE 1 % 0-1 PERCENT (BEAKER) (test code = 2801) Prepare Leuko-Red [id number] 23:54:00 Test Item Value Reference Range Interpretation Comments Unit ABO (test code = A Pos 2274281) UNIT NUMBER (test code = [id number] 934-0) Status (test code = 8983304) TX_TIMEINCHART Blood Bank Product (test code RED BLOOD CELLS = 2263) PRODUCT CODE (test code = D7698A70 933-2) CROSSMATCH (test code = 2264) [facility] [id number] 22:23:00 Test Item Value Reference Range Interpretation Comments POC-GLUCOSE METER 169 mg/dL 70-110 H : TESTED A T [facility] 6720 (BEAKER) (test code = [place], 1538) [address]: Chocolate Temperer/Techni hilary ID = [id number] for DO September BASIC METABOLIC [id number] 21:00:00 Test Item Value Reference Range Interpretation Comments SODIUM (BEAKER) 135 meq/L 136-145 L (test code = 381) POTASSIUM (BEAKER) 4.4 meq/L 3.5-5.1 (test code = 379) CHLORIDE (BEAKER) 93 meq/L 98-107 L (test code = 382) CO2 (BEAKER) (test 34 meq/L 22-29 H code = 355) BLOOD UREA NITROGEN 34 mg/dL 7-21 H (BEAKER) (test code = 354) CREATININE (BEAKER) 1.34 mg/dL 0.57-1.25 H (test code = 358) GLUCOSE RANDOM 250 mg/dL 70-105 H (BEAKER) (test code = 652) CALCIUM (BEAKER) 8.1 mg/dL 8.4-10.2 L (test code = 697) EGFR (BEAKER) (test 53 mL/min/1.73 ESTIMA SUSIE GFR IS code = 1092) sq m NOT ACCURATE CREATININE CLEARANCE IN PREDICTING GLOMERULAR FILTRATION RATE . ESTIMATED GFR I S NOT APPLICABLE FOR DIALYSIS PATIEN TS. Chocolate Temperer ID - [id number] 21:00:00 Test Item Value Reference Range Interpretation Comments MAGNESIUM (BEAKER) (test code = 2.4 mg/dL 1.6-2.6 627) Chocolate Temperer ID - [id number] 18:24:00 Test Item Value Reference Range Interpretation Comments PARTIAL THROMBOPLASTIN TIME 46.8 seconds 22.5-36.0 H (BEAKER) (test code = 760) PROTHROMBIN TIME/[id number] 18:23:00 Test Item Value Reference Range Interpretation Comments PROTIME (BEAKER) 28.4 seconds 11.9-14.2 H (test code = 759) INR (BEAKER) (test 2.75 See_Comment [Automat ed message] code = 370) The system [employer] generated this result transmitted ref erence range: <=5.90. The reference range was not used to int erpret this result as normal/abnormal . Effective 11/01/2018: PT Reference Range ChangeNew: 11.9-14.2 Previous: 11.7- 14.7RECOMMENDED COUMADIN/WARFARIN INR THERAPY RANGESSTANDARD DOSE: 2.0-3.0 Includes: PROPHYLAXIS for venous thrombosis, systemic embolization; TREATMENT for venous thrombosis and/or pulmonary embolus.HIGH RISK: Target INR is2.5-3.5 for patients wiht mechanical heart valves.BLOOD GAS, [id number] 17:30:00 Test Item Value Reference Range Interpretation Comments PH ARTERIAL (BEAKER) (test code = 7.43 7.35-7.45 383) PCO2 ARTERIAL (BEAKER) (test code 53 mm Hg 35-45 H = 384) PO2 ARTERIAL (BEAKER) (test code = 164 mm Hg 80-90 H 385) O2 SATURATION ARTERIAL (BEAKER) 99.1 % 96.0-97.0 H (test code = 386) HCO3 ARTERIAL (BEAKER) (test code 35 mmol/L 21-29 H = 388) BASE EXCESS ARTERIAL (BEAKER) 9.1 mmol/L -2.0-3.0 H (test code = 387) PATIENT TEMPERATURE (BEAKER) (test 36.5 code = 1818) FIO2 (BEAKER) (test code = 1819) 21.0 Call results [id number]-GLUCOSE [id number] 16:50:00 Test Item Value Reference Range Interpretation Comments POC-GLUCOSE METER 195 mg/dL 70-110 H : TESTED A T [facility] 6720 (BEAKER) (test code = [facility], 1538) [address]: Chocolate Temperer/Techni hilary ID = [id number] for KOREY WHATLEY BASIC METABOLIC [id number] 15:43:00 Test Item Value Reference Range Interpretation Comments SODIUM (BEAKER) 135 meq/L 136-145 L (test code = 381) POTASSIUM (BEAKER) 4.2 meq/L 3.5-5.1 (test code = 379) CHLORIDE (BEAKER) 93 meq/L 98-107 L (test code = 382) CO2 (BEAKER) (test 34 meq/L 22-29 H code = 355) BLOOD UREA NITROGEN 32 mg/dL 7-21 H (BEAKER) (test code = 354) CREATININE (BEAKER) 1.31 mg/dL 0.57-1.25 H (test code = 358) GLUCOSE RANDOM 172 mg/dL 70-105 H (BEAKER) (test code = 652) CALCIUM (BEAKER) 8.3 mg/dL 8.4-10.2 L (test code = 697) EGFR (BEAKER) (test 54 mL/min/1.73 ESTIMA SUSIE GFR IS code = 1092) sq m NOT ACCURATE CREATININE CLEARANCE IN PREDICTING GLOMERULAR FILTRATION RATE . ESTIMATED GFR I S NOT APPLICABLE FOR DIALYSIS PATIEN TS. Chocolate Temperer ID - [id number] 15:43:00 Test Item Value Reference Range Interpretation Comments MAGNESIUM (BEAKER) (test code = 2.2 mg/dL 1.6-2.6 627) Chocolate Temperer ID - BSAntibody qihehrvutmkgav0008-28-20 14:50:00 Test Item Value Reference Range Interpretation Comments ANTIBODY ID (BEAKER) UNID IgG (test code = 2253) Antibody Consult SIGNED OUT An IgG anti body of (test code = 2479) undetermi liliam specificity is detected, trans fuse crossmatch comp atible RBCs.Electronic Signature: Charlene Hdz M.D. [facility] CenterType and screen, [id number] 12:04:00 Test Item Value Reference Range Interpretation Comments ABO/RH AUTOMATED (BEAKER) (test A POSITIVE code = 2260) Ab Scrn (test code = 890-4) POSITIVE Echo 2 [facility] CenterEosinophil [id number] 11:49:00 Test Item Value Reference Range Interpretation Comments Eosinophil Smear (test code = No EOS seen No EOS seen 47268-6) Lab Interpretation (test code = Normal 64913-5) [facility] CenterEOSINOPHIL SMEAR, [id number] 11:49:00 Test Item Value Reference Range Interpretation Comments EOSINOPHIL SMEAR, URINE (BEAKER) No EOS seen No EOS seen (test code = 1851) POCT-GLUCOSE [id number] 11:33:00 Test Item Value Reference Range Interpretation Comments POC-GLUCOSE METER 152 mg/dL 70-110 H : [facility] (BEAKER) (test code = [place], 1538) [address]: Chocolate Temperer/Techni hilary ID = [id number] for KOREY WHATLEY Creatinine, random [id number] 11:12:00 Test Item Value Reference Range Interpretation Comments Creatinine, Ur 8.6 mg/dL (test code = 2161-8) KANCHAN (test code = Reference Range: No KANCHAN) NormalsOperator ID - PIAYA L [facility] CenterProtein, random [id number] 11:12:00 Test Item Value Reference Range Interpretation Comments Protein, Urine (test code <7 0-14 = 2888-6) KANCHAN (test code = KANCHAN) Chocolate Temperer ID - VIVIANE L Lab Interpretation (test Normal code = 15911-0) [facility] [id number] 11:12:00 Test Item Value Reference Range Interpretation Comments Sodium Urine (test 116 meq/L code = 2955-3) KANCHAN (test code = Reference Range: No KANCHAN) NormalsOperator ID - PIAYA L [facility] CenterUrea Nitrogen, random [id number] 11:12:00 Test Item Value Reference Range Interpretation Comments Urea Nitrogen, Ur 112 mg/dL (test code = 3095-7) KANCHAN (test code = Reference Range: No KANCHAN) NormalsOperator ID - PIAYA L [facility] CenterCREATININE, RANDOM [id number] 11:12:00 Test Item Value Reference Range Interpretation Comments CREATININE URINE (BEAKER) (test 8.6 mg/dL code = 375) Reference Range: No NormalsOperator ID - PIAYA LSODIUM, RANDOM [id number] 11:12:00 Test Item Value Reference Range Interpretation Comments SODIUM URINE (BEAKER) (test code = 116 meq/L 243) Reference Range: No NormalsOperator ID - PIAYAD LUREA NITROGEN, RANDOM URINE 2020-09-17 11:12:00 Test Item Value Reference Range Interpretation Comments UREA NITROGEN URINE (BEAKER) (test 112 mg/dL code = 538) Reference Range: No NormalsOperator ID - PIAYA LPROTEIN, RANDOM [id number] 11:12:00 Test Item Value Reference Range Interpretation Comments PROTEIN, URINE (BEAKER) (test code = < mg/dL 0-14 1569) Chocolate Temperer ID - VIVIANE LVASCULAR DIAGRAM -[id number] 09:55:58Ordered by an unspecified provider.[facility] CenterPOCT-GLUCOSE [id number] 08:02:00 Test Item Value Reference Range Interpretation Comments POC-GLUCOSE METER 126 mg/dL 70-110 H : TESTED A T [facility] 6720 (BEAKER) (test code = [facility], 1538) [address]: Chocolate Temperer/Techni hilary ID = [id number] for EDWIN ZUNIGA POCT-GLUCOSE [id number] 07:49:00 Test Item Value Reference Range Interpretation Comments POC-GLUCOSE METER 123 mg/dL 70-110 H : TESTED A T [facility] 6720 (BEAKER) (test code = [facility], 1538) [address]: Chocolate Temperer/Techni hilary ID = [id number] for KOREY WHATLEY RAD, CHEST, 1 VIEW, NON [id number] 07:29:00Reason for exam:->pulmonary consolidationShould this be performed at the bedside?->Yes [facility] 1950 Sex: MFINAL REPORT CLINICAL HISTORY: pulmonary consolidation TECHNIQUE: 1 view of the chest. COMPARISON: 09/16/2020 IMPRESSION: Diffuse bilateral pulmonary infiltrates are similar appearing. Trace pleural effusions are grossly unchanged. The cardiomediastinal silhouette is magnified by technique with sternotomy wires and a pacemaker. Signed: Darius Enciso MDReport Verified Date/Time: 09/17/2020 07:29:56 Reading Location: [facility] Radiology Reading Room PROTHROMBIN TIME/[id number] 07:01:00 Test Item Value Reference Range Interpretation Comments PROTIME (BEAKER) 42.8 seconds 11.9-14.2 H (test code = 759) INR (BEAKER) (test 4.64 See_Comment [Automat ed message] code = 370) The system [employer] generated this result transmitted ref erence range: <=5.90. The reference range was not used to int erpret this result as normal/abnormal . Effective 11/01/2018: PT Reference Range ChangeNew: 11.9-14.2 Previous: 11.7- 14.7RECOMMENDED COUMADIN/WARFARIN INR THERAPY RANGESSTANDARD DOSE: 2.0-3.0 Includes: PROPHYLAXIS for venous thrombosis, systemic embolization; TREATMENT for venous thrombosis and/or pulmonary embolus.HIGH RISK: Target INR is2.5-3.5 for patients wiht mechanical heart valves.While on warfarin.BLOOD GAS, ARTERIAL 2020-09-17 06:59:00 Test Item Value Reference Range Interpretation Comments PH ARTERIAL (BEAKER) (test code = 7.44 7.35-7.45 383) PCO2 ARTERIAL (BEAKER) (test code 54 mm Hg 35-45 H = 384) PO2 ARTERIAL (BEAKER) (test code 171 mm Hg 80-90 H = 385) O2 SATURATION ARTERIAL (BEAKER) 99.2 % 96.0-97.0 H (test code = 386) HCO3 ARTERIAL (BEAKER) (test code 36 mmol/L 21-29 H = 388) BASE EXCESS ARTERIAL (BEAKER) 10.2 mmol/L -2.0-3.0 H (test code = 387) PATIENT TEMPERATURE (BEAKER) 36.5 (test code = 1818) FIO2 (BEAKER) (test code = 1819) 55.0 BASIC METABOLIC [id number] 05:38:00 Test Item Value Reference Range Interpretation Comments SODIUM (BEAKER) 137 meq/L 136-145 (test code = 381) POTASSIUM (BEAKER) 3.6 meq/L 3.5-5.1 (test code = 379) CHLORIDE (BEAKER) 94 meq/L 98-107 L (test code = 382) CO2 (BEAKER) (test 34 meq/L 22-29 H code = 355) BLOOD UREA NITROGEN 33 mg/dL 7-21 H (BEAKER) (test code = 354) CREATININE (BEAKER) 1.29 mg/dL 0.57-1.25 H (test code = 358) GLUCOSE RANDOM 86 mg/dL 70-105 (BEAKER) (test code = 652) CALCIUM (BEAKER) 8.3 mg/dL 8.4-10.2 L (test code = 697) EGFR (BEAKER) (test 55 mL/min/1.73 ESTIMA SUSIE GFR IS code = 1092) sq m NOT ACCURATE CREATININE CLEARANCE IN PREDICTING GLOMERULAR FILTRATION RATE . ESTIMATED GFR I S NOT APPLICABLE FOR DIALYSIS PATIEN TS. Chocolate Temperer ID - VIVIANE [id number] 05:38:00 Test Item Value Reference Range Interpretation Comments MAGNESIUM (BEAKER) (test code = 2.3 mg/dL 1.6-2.6 627) Chocolate Temperer ID - VIVIANE LCALCIUM, [id number] 05:26:00 Test Item Value Reference Range Interpretation Comments CALCIUM IONIZED (BEAKER) (test 1.09 mmol/L 1.12-1.27 L code = 698) PH, BLOOD (BEAKER) (test code = 7.37 1810) CBC W/PLT COUNT & AUTO [id number] 05:02:00 Test Item Value Reference Range Interpretation Comments WHITE BLOOD CELL COUNT (BEAKER) 11.4 K/ L 3.5-10.5 H (test code = 775) RED BLOOD CELL COUNT (BEAKER) 3.06 M/ L 4.63-6.08 L (test code = 761) HEMOGLOBIN (BEAKER) (test code = 8.4 GM/DL 13.7-17.5 L 410) HEMATOCRIT (BEAKER) (test code = 26.9 % 40.1-51.0 L 411) MEAN CORPUSCULAR VOLUME (BEAKER) 87.9 fL 79.0-92.2 (test code = 753) MEAN CORPUSCULAR HEMOGLOBIN 27.5 pg 25.7-32.2 (BEAKER) (test code = 751) MEAN CORPUSCULAR HEMOGLOBIN CONC 31.2 GM/DL 32.3-36.5 L (BEAKER) (test code = 752) RED CELL DISTRIBUTION WIDTH 16.4 % 11.6-14.4 H (BEAKER) (test code = 412) PLATELET COUNT (BEAKER) (test 216 K/CU MM 150-450 code = 756) MEAN PLATELET VOLUME (BEAKER) 10.4 fL 9.4-12.4 (test code = 754) NUCLEATED RED BLOOD CELLS 0 /100 WBC 0-0 (BEAKER) (test code = 413) NEUTROPHILS RELATIVE PERCENT 86 % (BEAKER) (test code = 429) LYMPHOCYTES RELATIVE PERCENT 6 % (BEAKER) (test code = 430) MONOCYTES RELATIVE PERCENT 7 % (BEAKER) (test code = 431) EOSINOPHILS RELATIVE PERCENT 0 % (BEAKER) (test code = 432) BASOPHILS RELATIVE PERCENT 0 % (BEAKER) (test code = 437) NEUTROPHILS ABSOLUTE COUNT 9.82 K/ L 1.78-5.38 H (BEAKER) (test code = 670) LYMPHOCYTES ABSOLUTE COUNT 0.69 K/ L 1.32-3.57 L (BEAKER) (test code = 414) MONOCYTES ABSOLUTE COUNT (BEAKER) 0.81 K/ L 0.30-0.82 (test code = 415) EOSINOPHILS ABSOLUTE COUNT 0.01 K/ L 0.04-0.54 L (BEAKER) (test code = 416) BASOPHILS ABSOLUTE COUNT (BEAKER) 0.01 K/ L 0.01-0.08 (test code = 417) IMMATURE GRANULOCYTES-RELATIVE 1 % 0-1 PERCENT (BEAKER) (test code = 2801) PROTHROMBIN [id number] 04:57:00 Test Item Value Reference Range Interpretation Comments PROTIME (BEAKER) 49.8 seconds 11.9-14.2 H (test code = 759) INR (BEAKER) (test 5.69 See_Comment [Automat ed message] code = 370) The system [employer] generated this result transmitted ref erence range: <=5.90. The reference range was not used to int erpret this result as normal/abnormal . Effective 11/01/2018: PT Reference Range ChangeNew: 11.9-14.2 Previous: 11.7- 14.7RECOMMENDED COUMADIN/WARFARIN INR THERAPY RANGESSTANDARD DOSE: 2.0-3.0 Includes: PROPHYLAXIS for venous thrombosis, systemic embolization; TREATMENT for venous thrombosis and/or pulmonary embolus.HIGH RISK: Target INR is2.5-3.5 for patients wiht mechanical heart valves.While on warfarin.[id number] 04:57:00 Test Item Value Reference Range Interpretation Comments PARTIAL THROMBOPLASTIN TIME 55.4 seconds 22.5-36.0 H (BEAKER) (test code = 760) While on warfarin.BASIC METABOLIC [id number] 22:35:00 Test Item Value Reference Range Interpretation Comments SODIUM (BEAKER) 135 meq/L 136-145 L (test code = 381) POTASSIUM (BEAKER) 3.9 meq/L 3.5-5.1 (test code = 379) CHLORIDE (BEAKER) 92 meq/L 98-107 L (test code = 382) CO2 (BEAKER) (test 34 meq/L 22-29 H code = 355) BLOOD UREA NITROGEN 33 mg/dL 7-21 H (BEAKER) (test code = 354) CREATININE (BEAKER) 1.49 mg/dL 0.57-1.25 H (test code = 358) GLUCOSE RANDOM 217 mg/dL 70-105 H (BEAKER) (test code = 652) CALCIUM (BEAKER) 8.3 mg/dL 8.4-10.2 L (test code = 697) EGFR (BEAKER) (test 47 mL/min/1.73 ESTIMA SUSIE GFR IS code = 1092) sq m NOT ACCURATE CREATININE CLEARANCE IN PREDICTING GLOMERULAR FILTRATION RATE . ESTIMATED GFR I S NOT APPLICABLE FOR DIALYSIS PATIEN TS. Chocolate Temperer ID - [id number] 22:35:00 Test Item Value Reference Range Interpretation Comments MAGNESIUM (BEAKER) (test code = 2.4 mg/dL 1.6-2.6 627) Chocolate Temperer ID - BSVANCOMYCIN LEVEL, [id number] 22:34:00 Test Item Value Reference Range Interpretation Comments VANCOMYCIN TROUGH (BEAKER) (test 28.2 ug/mL 10.0-20.0 H code = 522) Chocolate Temperer ID - BSPOCT-GLUCOSE [id number] 16:44:00 Test Item Value Reference Range Interpretation Comments POC-GLUCOSE METER 195 mg/dL 70-110 H : TESTED A T [facility] (BEAKER) (test code [place], = 1538) [address]: Chocolate Temperer/Techni hilary ID = [id number] for OLIVIER SONI BASIC METABOLIC [id number] 16:02:00 Test Item Value Reference Range Interpretation Comments SODIUM (BEAKER) 136 meq/L 136-145 (test code = 381) POTASSIUM (BEAKER) 4.2 meq/L 3.5-5.1 (test code = 379) CHLORIDE (BEAKER) 92 meq/L 98-107 L (test code = 382) CO2 (BEAKER) (test 35 meq/L 22-29 H code = 355) BLOOD UREA NITROGEN 29 mg/dL 7-21 H (BEAKER) (test code = 354) CREATININE (BEAKER) 1.33 mg/dL 0.57-1.25 H (test code = 358) GLUCOSE RANDOM 191 mg/dL 70-105 H (BEAKER) (test code = 652) CALCIUM (BEAKER) 8.3 mg/dL 8.4-10.2 L (test code = 697) EGFR (BEAKER) (test 53 mL/min/1.73 ESTIMA SUSIE GFR IS code = 1092) sq m NOT ACCURATE CREATININE CLEARANCE IN PREDICTING GLOMERULAR FILTRATION RATE . ESTIMATED GFR I S NOT APPLICABLE FOR DIALYSIS PATIEN TS. Chocolate Temperer ID - CECILE [id number] 16:02:00 Test Item Value Reference Range Interpretation Comments MAGNESIUM (BEAKER) (test code = 2.4 mg/dL 1.6-2.6 627) Chocolate Temperer ID - CECILE MHemoglobin and [id number] 15:43:00 Test Item Value Reference Range Interpretation Comments Hemoglobin (test code 8.7 See_Comment L [Auto mated = 786-4) message] The system which generated this result transmit susie reference range : 13.7 - 17.5 GM/ DL. The reference range was not u sed to interpret th is result as normal/abnormal . Hematocrit (test code 27.0 % 40.1-51 L = 4544-3) KANCHAN (test code = KANCHAN) Chocolate Temperer ID - [id number] Lab Interpretation Abnormal (test code = 09549-6) [facility] AND [id number] 15:43:00 Test Item Value Reference Range Interpretation Comments HEMOGLOBIN (BEAKER) (test code = 8.7 GM/DL 13.7-17.5 L 410) HEMATOCRIT (BEAKER) (test code = 27.0 % 40.1-51.0 L 411) Chocolate Temperer ID - [id number]-GLUCOSE [id number] 11:56:00 Test Item Value Reference Range Interpretation Comments POC-GLUCOSE METER 164 mg/dL 70-110 H : TESTED A T [facility] 6720 (BEAKER) (test code [facility], = 1538) [address]: Chocolate Temperer/Techni hilary ID = [id number] for HEND RY, OLIVIER POCT-GLUCOSE [id number] 08:01:00 Test Item Value Reference Range Interpretation Comments POC-GLUCOSE METER 178 mg/dL 70-110 H : TESTED A T [facility] 6720 (BEAKER) (test code [facility], = 1538) [address]: Chocolate Temperer/Techni hilary ID = [id number] for HEND RY, OLIVIER RAD, CHEST, 1 VIEW, NON [id number] 07:42:00Reason for exam:->pulmonary consolidationShould this be performed at the bedside?->Yes [facility] 1950 Sex: MFINAL REPORT CLINICAL HISTORY: pulmonary consolidation TECHNIQUE: 1 view of the chest. COMPARISON: 09/15/2020 IMPRESSION: Diffuse bilateral pulmonary infiltrates are grossly unchanged. Small right and trace left effusions are unchanged. The cardiomediastinal silhouette is magnified by technique with sternotomy wires, TAVR, and a pacemaker. Signed: Darius Enciso MDReport Verified Date/Time: 09/16/2020 07:42:07 Reading Location: [facility] Radiology Reading Room POCT-GLUCOSE [id number] 07:23:00 Test Item Value Reference Range Interpretation Comments POC-GLUCOSE METER 187 mg/dL 70-110 H : TESTED A T [facility] (test code = [place], 1538) [address]: Chocolate Temperer/Techni hilary ID = [id number] for [place] ANDREA ALBARADO SARS-COV2/RT-PCR ([facility])2020-09-16 06:04:00 Test Item Value Reference Range Interpretation Comments SARS-COV2/RT-PCR (test Negative Not Detected, Negative, code = 2502730) See external report for linked test SARS-COV-2 PERFORMING LAB [facility] (test code = 9670750) Negative result for this test determines that SARS-CoV-2 RNA was not present in the specimen above the Limit of Detection (LOD). However, Negative results do not preclude SARS-CoV-2 infection and should not be used as the sole basis for treatment or patient management decisions. Negative results mustbe combined with clinical observations, patient history, and epidemiological information. A false negative result may occur if a specimen is improperly collected, transported or handled. A false negative result should be considered if patient's recent exposures or clinical presentation indicate that COVID-19 (SARS-CoV-2) is likely and diagnostic tests for other causes of illness are negative. Re-testing should be considered in cases of suspected false negatives.The limit of detection for this assay is 800 copies/mL.This SARS CoV-2 test is a real-time RT-PCR test intended for the qualitative detection of nucleic acid from SARS-CoV-2 in a nasopharyngeal swab specimen collected from individuals susp ected of COVID-19 by their healthcare provider.This test has not been Food and Drug Administration (FDA) cleared or approved. This is a modified version of an approved Emergency Use Authorization (EUA) and is in the process of review by the FDA. Once authorized by the FDA, the issued EUA will be effective until the declaration that circumstances exist justifying the authorization of the emergency use of in vitro diagnostic tests for detection and/or diagnosis of COVID-19 is terminated under Section 564(b)(2) of the Act or the EUA is revoked under Section 564(g) of the Act.Fact Sheet for Healthcare Providers:https://www.[employer] [employer]/sites/default/files/product/documents/Fact_Shee l_GT_Gnfgljeyd_Vaaz_QRIQ-SeK-8.pdfFact Sheet for Healthcare Patients:https://www.[employer] [facility]/sites/default/files/product/ documents/Diiq_Mqqet_Nyuvvsfs_Uunz_UYXY-QeS-6.pdfPerforming Laboratory:[facility] [facility], [place] [address]ROTLC GAS, ARTERIAL 2020-09-16 05:22:00 Test Item Value Reference Range Interpretation Comments PH ARTERIAL (BEAKER) (test code = 7.41 7.35-7.45 383) PCO2 ARTERIAL (BEAKER) (test code 62 mm Hg 35-45 H = 384) PO2 ARTERIAL (BEAKER) (test code 157 mm Hg 80-90 H = 385) O2 SATURATION ARTERIAL (BEAKER) 99.0 % 96.0-97.0 H (test code = 386) HCO3 ARTERIAL (BEAKER) (test code 38 mmol/L 21-29 H = 388) BASE EXCESS ARTERIAL (BEAKER) 11.6 mmol/L -2.0-3.0 H (test code = 387) PATIENT TEMPERATURE (BEAKER) 37.0 (test code = 1818) FIO2 (BEAKER) (test code = 1819) 60.0 CALCIUM, [id number] 05:22:00 Test Item Value Reference Range Interpretation Comments CALCIUM IONIZED (BEAKER) (test 1.07 mmol/L 1.12-1.27 L code = 698) PH, BLOOD (BEAKER) (test code = 7.41 1810) BASIC METABOLIC [id number] 05:11:00 Test Item Value Reference Range Interpretation Comments SODIUM (BEAKER) 138 meq/L 136-145 (test code = 381) POTASSIUM (BEAKER) 3.8 meq/L 3.5-5.1 (test code = 379) CHLORIDE (BEAKER) 91 meq/L 98-107 L (test code = 382) CO2 (BEAKER) (test 36 meq/L 22-29 H code = 355) BLOOD UREA NITROGEN 26 mg/dL 7-21 H (BEAKER) (test code = 354) CREATININE (BEAKER) 1.28 mg/dL 0.57-1.25 H (test code = 358) GLUCOSE RANDOM 175 mg/dL 70-105 H (BEAKER) (test code = 652) CALCIUM (BEAKER) 8.5 mg/dL 8.4-10.2 (test code = 697) EGFR (BEAKER) (test 56 mL/min/1.73 ESTIMA SUSIE GFR IS code = 1092) sq m NOT ACCURATE CREATININE CLEARANCE IN PREDICTING GLOMERULAR FILTRATION RATE . ESTIMATED GFR I S NOT APPLICABLE FOR DIALYSIS PATIEN TS. Chocolate Temperer ID - CECILE [id number] 05:11:00 Test Item Value Reference Range Interpretation Comments MAGNESIUM (BEAKER) (test code = 2.2 mg/dL 1.6-2.6 627) Chocolate Temperer ID - CECILE [id number] 04:42:00 Test Item Value Reference Range Interpretation Comments PARTIAL THROMBOPLASTIN TIME 56.2 seconds 22.5-36.0 H (BEAKER) (test code = 760) While on warfarin.PROTHROMBIN TIME/[id number] 04:41:00 Test Item Value Reference Range Interpretation Comments PROTIME (BEAKER) 44.3 seconds 11.9-14.2 H (test code = 759) INR (BEAKER) (test 4.85 See_Comment [Automat ed message] code = 370) The system [employer] generated this result transmitted ref erence range: <=5.90. The reference range was not used to int erpret this result as normal/abnormal . Effective 11/01/2018: PT Reference Range ChangeNew: 11.9-14.2 Previous: 11.7- 14.7RECOMMENDED COUMADIN/WARFARIN INR THERAPY RANGESSTANDARD DOSE: 2.0-3.0 Includes: PROPHYLAXIS for venous thrombosis, systemic embolization; TREATMENT for venous thrombosis and/or pulmonary embolus.HIGH RISK: Target INR is2.5-3.5 for patients wiht mechanical heart valves.While on warfarin.CBC W/PLT COUNT & AUTO [id number] 04:37:00 Test Item Value Reference Range Interpretation Comments WHITE BLOOD CELL COUNT (BEAKER) 14.0 K/ L 3.5-10.5 H (test code = 775) RED BLOOD CELL COUNT (BEAKER) 2.87 M/ L 4.63-6.08 L (test code = 761) HEMOGLOBIN (BEAKER) (test code = 7.8 GM/DL 13.7-17.5 L 410) HEMATOCRIT (BEAKER) (test code = 24.6 % 40.1-51.0 L 411) MEAN CORPUSCULAR VOLUME (BEAKER) 85.7 fL 79.0-92.2 (test code = 753) MEAN CORPUSCULAR HEMOGLOBIN 27.2 pg 25.7-32.2 (BEAKER) (test code = 751) MEAN CORPUSCULAR HEMOGLOBIN CONC 31.7 GM/DL 32.3-36.5 L (BEAKER) (test code = 752) RED CELL DISTRIBUTION WIDTH 17.0 % 11.6-14.4 H (BEAKER) (test code = 412) PLATELET COUNT (BEAKER) (test 220 K/CU MM 150-450 code = 756) MEAN PLATELET VOLUME (BEAKER) 10.6 fL 9.4-12.4 (test code = 754) NUCLEATED RED BLOOD CELLS 0 /100 WBC 0-0 (BEAKER) (test code = 413) NEUTROPHILS RELATIVE PERCENT 94 % (BEAKER) (test code = 429) LYMPHOCYTES RELATIVE PERCENT 3 % (BEAKER) (test code = 430) MONOCYTES RELATIVE PERCENT 3 % (BEAKER) (test code = 431) EOSINOPHILS RELATIVE PERCENT 0 % (BEAKER) (test code = 432) BASOPHILS RELATIVE PERCENT 0 % (BEAKER) (test code = 437) NEUTROPHILS ABSOLUTE COUNT 13.13 K/ L 1.78-5.38 H (BEAKER) (test code = 670) LYMPHOCYTES ABSOLUTE COUNT 0.39 K/ L 1.32-3.57 L (BEAKER) (test code = 414) MONOCYTES ABSOLUTE COUNT (BEAKER) 0.38 K/ L 0.30-0.82 (test code = 415) EOSINOPHILS ABSOLUTE COUNT 0.00 K/ L 0.04-0.54 L (BEAKER) (test code = 416) BASOPHILS ABSOLUTE COUNT (BEAKER) 0.01 K/ L 0.01-0.08 (test code = 417) IMMATURE GRANULOCYTES-RELATIVE 1 % 0-1 PERCENT (BEAKER) (test code = 2801) POCT-GLUCOSE [id number] 21:44:00 Test Item Value Reference Range Interpretation Comments POC-GLUCOSE METER 212 mg/dL 70-110 H : TESTED A T [facility] 6720 (BEAKER) (test code = [place], 1538) [address]: Chocolate Temperer/Techni hilary ID = [id number] for JORGE HOLLAND BASIC METABOLIC [id number] 21:10:00 Test Item Value Reference Range Interpretation Comments SODIUM (BEAKER) 133 meq/L 136-145 L (test code = 381) POTASSIUM (BEAKER) 3.8 meq/L 3.5-5.1 (test code = 379) CHLORIDE (BEAKER) 88 meq/L 98-107 L (test code = 382) CO2 (BEAKER) (test 34 meq/L 22-29 H code = 355) BLOOD UREA NITROGEN 27 mg/dL 7-21 H (BEAKER) (test code = 354) CREATININE (BEAKER) 1.32 mg/dL 0.57-1.25 H (test code = 358) GLUCOSE RANDOM 238 mg/dL 70-105 H (BEAKER) (test code = 652) CALCIUM (BEAKER) 8.9 mg/dL 8.4-10.2 (test code = 697) EGFR (BEAKER) (test 54 mL/min/1.73 ESTIMA SUSIE GFR IS code = 1092) sq m NOT ACCURATE CREATININE CLEARANCE IN PREDICTING GLOMERULAR FILTRATION RATE . ESTIMATED GFR I S NOT APPLICABLE FOR DIALYSIS PATIEN TS. Chocolate Temperer ID - [id number] 21:10:00 Test Item Value Reference Range Interpretation Comments MAGNESIUM (BEAKER) (test code = 2.6 mg/dL 1.6-2.6 627) Chocolate Temperer ID - DBLactic Acid, [id number] 17:00:00 Test Item Value Reference Range Interpretation Comments Lactate, Art (test 2.1 mmol/L 0.5-2.2 Specimen code = 2874) markedly hemolyzed KANCHAN (test code = KANCHAN) Chocolate Temperer ID - DB Lab Interpretation Normal (test code = 57442-8) [facility] CenterLACTIC ACID, [id number] 17:00:00 Test Item Value Reference Range Interpretation Comments LACTATE BLOOD 2.1 mmol/L 0.5-2.2 Specimen marke dly ARTERIAL (2) (BEAKER) hemoly zed (test code = 2874) Chocolate Temperer ID - [id number] 16:27:00 Test Item Value Reference Range Interpretation Comments MAGNESIUM (BEAKER) 2.4 mg/dL 1.6-2.6 Specimen moderately (test code = 627) hemolyzed Chocolate Temperer ID - [id number] 16:27:00 Test Item Value Reference Range Interpretation Comments PHOSPHORUS (BEAKER) 6.2 mg/dL 2.3-4.7 H Specimen moderately (test code = 604) hemolyzed Chocolate Temperer ID - DBCOMPREHENSIVE METABOLIC [id number] 16:27:00 Test Item Value Reference Range Interpretation Comments TOTAL PROTEIN 6.7 gm/dL 6.0-8.3 Specimen moder ately (BEAKER) (test code = hemoly zed 770) ALBUMIN (BEAKER) 3.0 g/dL 3.5-5.0 L Specimen mo derately (test code = 1145) hemolyzed ALKALINE PHOSPHATASE 66 U/L 40-150 (BEAKER) (test code = 346) BILIRUBIN TOTAL 1.3 mg/dL 0.2-1.2 H Specimen mod erately (BEAKER) (test code = hemoly zed 377) SODIUM (BEAKER) (test 139 meq/L 136-145 code = 381) POTASSIUM (BEAKER) 4.6 meq/L 3.5-5.1 Specimen moderately (test code = 379) hemolyzed CHLORIDE (BEAKER) 91 meq/L 98-107 L (test code = 382) CO2 (BEAKER) (test 36 meq/L 22-29 H code = 355) BLOOD UREA NITROGEN 24 mg/dL 7-21 H (BEAKER) (test code = 354) CREATININE (BEAKER) 1.25 mg/dL 0.57-1.25 Specimen moderately (test code = 358) hemolyzed GLUCOSE RANDOM 159 mg/dL 70-105 H (BEAKER) (test code = 652) CALCIUM (BEAKER) 9.4 mg/dL 8.4-10.2 (test code = 697) AST (SGOT) (BEAKER) 41 U/L 5-34 H Specimen moderately (test code = 353) hemolyzed ALT (SGPT) (BEAKER) 26 U/L 6-55 Specimen moderately (test code = 347) hemolyzed EGFR (BEAKER) (test 57 mL/min/1.73 ESTIMA SUSIE GFR IS code = 1092) sq m NOT ACCURATE CREATININE CLEARANCE IN PREDICTING GLOMERULAR FILTRATION RATE . ESTIMATED GFR I S NOT APPLICABLE FOR DIALYSIS PATIEN TS. Chocolate Temperer ID - DBBLOOD GAS, [id number] 15:46:00 Test Item Value Reference Range Interpretation Comments PH ARTERIAL (BEAKER) (test code = 7.46 7.35-7.45 H 383) PCO2 ARTERIAL (BEAKER) (test code 55 mm Hg 35-45 H = 384) PO2 ARTERIAL (BEAKER) (test code 117 mm Hg 80-90 H = 385) O2 SATURATION ARTERIAL (BEAKER) 98.5 % 96.0-97.0 H (test code = 386) HCO3 ARTERIAL (BEAKER) (test code 38 mmol/L 21-29 H = 388) BASE EXCESS ARTERIAL (BEAKER) 12.7 mmol/L -2.0-3.0 H (test code = 387) PATIENT TEMPERATURE (BEAKER) 36.1 (test code = 1818) FIO2 (BEAKER) (test code = 1819) 60.0 CALCIUM, [id number] 15:46:00 Test Item Value Reference Range Interpretation Comments CALCIUM IONIZED (BEAKER) (test 1.15 mmol/L 1.12-1.27 code = 698) PH, BLOOD (BEAKER) (test code = 7.46 1810) BASIC METABOLIC [id number] 12:55:00 Test Item Value Reference Range Interpretation Comments SODIUM (BEAKER) 139 meq/L 136-145 (test code = 381) POTASSIUM (BEAKER) 4.2 meq/L 3.5-5.1 (test code = 379) CHLORIDE (BEAKER) 91 meq/L 98-107 L (test code = 382) CO2 (BEAKER) (test 37 meq/L 22-29 H code = 355) BLOOD UREA NITROGEN 23 mg/dL 7-21 H (BEAKER) (test code = 354) CREATININE (BEAKER) 1.16 mg/dL 0.57-1.25 (test code = 358) GLUCOSE RANDOM 169 mg/dL 70-105 H (BEAKER) (test code = 652) CALCIUM (BEAKER) 8.9 mg/dL 8.4-10.2 (test code = 697) EGFR (BEAKER) (test 62 mL/min/1.73 ESTIMA SUSIE GFR IS code = 1092) sq m NOT ACCURATE CREATININE CLEARANCE IN PREDICTING GLOMERULAR FILTRATION RATE . ESTIMATED GFR I S NOT APPLICABLE FOR DIALYSIS PATIEN TS. Chocolate Temperer ID - SHU [id number] 12:55:00 Test Item Value Reference Range Interpretation Comments MAGNESIUM (BEAKER) (test code = 2.3 mg/dL 1.6-2.6 627) Chocolate Temperer ID - SHU CBLOOD GAS, [id number] 12:43:00 Test Item Value Reference Range Interpretation Comments PH ARTERIAL (BEAKER) (test code = 7.43 7.35-7.45 383) PCO2 ARTERIAL (BEAKER) (test code 64 mm Hg 35-45 H = 384) PO2 ARTERIAL (BEAKER) (test code 143 mm Hg 80-90 H = 385) O2 SATURATION ARTERIAL (BEAKER) 98.7 % 96.0-97.0 H (test code = 386) HCO3 ARTERIAL (BEAKER) (test code 41 mmol/L 21-29 HH = 388) BASE EXCESS ARTERIAL (BEAKER) 14.9 mmol/L -2.0-3.0 H (test code = 387) PATIENT TEMPERATURE (BEAKER) 38.0 (test code = 1818) FIO2 (BEAKER) (test code = 1819) 60.0 CBC W/PLT COUNT & AUTO [id number] 12:38:00 Test Item Value Reference Range Interpretation Comments WHITE BLOOD CELL COUNT (BEAKER) 5.8 K/ L 3.5-10.5 (test code = 775) RED BLOOD CELL COUNT (BEAKER) 3.03 M/ L 4.63-6.08 L (test code = 761) HEMOGLOBIN (BEAKER) (test code = 8.3 GM/DL 13.7-17.5 L 410) HEMATOCRIT (BEAKER) (test code = 26.6 % 40.1-51.0 L 411) MEAN CORPUSCULAR VOLUME (BEAKER) 87.8 fL 79.0-92.2 (test code = 753) MEAN CORPUSCULAR HEMOGLOBIN 27.4 pg 25.7-32.2 (BEAKER) (test code = 751) MEAN CORPUSCULAR HEMOGLOBIN CONC 31.2 GM/DL 32.3-36.5 L (BEAKER) (test code = 752) RED CELL DISTRIBUTION WIDTH 16.5 % 11.6-14.4 H (BEAKER) (test code = 412) PLATELET COUNT (BEAKER) (test 200 K/CU MM 150-450 code = 756) MEAN PLATELET VOLUME (BEAKER) 10.1 fL 9.4-12.4 (test code = 754) NUCLEATED RED BLOOD CELLS 0 /100 WBC 0-0 (BEAKER) (test code = 413) NEUTROPHILS RELATIVE PERCENT 90 % (BEAKER) (test code = 429) LYMPHOCYTES RELATIVE PERCENT 4 % (BEAKER) (test code = 430) MONOCYTES RELATIVE PERCENT 5 % (BEAKER) (test code = 431) EOSINOPHILS RELATIVE PERCENT 0 % (BEAKER) (test code = 432) BASOPHILS RELATIVE PERCENT 0 % (BEAKER) (test code = 437) NEUTROPHILS ABSOLUTE COUNT 5.20 K/ L 1.78-5.38 (BEAKER) (test code = 670) LYMPHOCYTES ABSOLUTE COUNT 0.24 K/ L 1.32-3.57 L (BEAKER) (test code = 414) MONOCYTES ABSOLUTE COUNT (BEAKER) 0.27 K/ L 0.30-0.82 L (test code = 415) EOSINOPHILS ABSOLUTE COUNT 0.00 K/ L 0.04-0.54 L (BEAKER) (test code = 416) BASOPHILS ABSOLUTE COUNT (BEAKER) 0.01 K/ L 0.01-0.08 (test code = 417) IMMATURE GRANULOCYTES-RELATIVE 1 % 0-1 PERCENT (BEAKER) (test code = 2801) Prepare [id number] 09:06:00 Test Item Value Reference Range Interpretation Comments Unit ABO (test code = A Pos [id number]) UNIT NUMBER (test code = [id number] 934-0) Status (test code = 7668338) READY Blood Bank Product (test code RED BLOOD CELLS = 2263) PRODUCT CODE (test code = H0954W11 933-2) CROSSMATCH (test code = 2264) [facility] [id number] 07:33:00 Test Item Value Reference Range Interpretation Comments CALCIUM IONIZED (BEAKER) (test 1.04 mmol/L 1.12-1.27 L code = 698) PH, BLOOD (BEAKER) (test code = 7.42 1810) CBC W/PLT COUNT & AUTO [id number] 04:32:00 Test Item Value Reference Range Interpretation Comments WHITE BLOOD CELL COUNT (BEAKER) 5.9 K/ L 3.5-10.5 (test code = 775) RED BLOOD CELL COUNT (BEAKER) 2.55 M/ L 4.63-6.08 L (test code = 761) HEMOGLOBIN (BEAKER) (test code = 7.0 GM/DL 13.7-17.5 L 410) HEMATOCRIT (BEAKER) (test code = 23.1 % 40.1-51.0 L 411) MEAN CORPUSCULAR VOLUME (BEAKER) 90.6 fL 79.0-92.2 (test code = 753) MEAN CORPUSCULAR HEMOGLOBIN 27.5 pg 25.7-32.2 (BEAKER) (test code = 751) MEAN CORPUSCULAR HEMOGLOBIN CONC 30.3 GM/DL 32.3-36.5 L (BEAKER) (test code = 752) RED CELL DISTRIBUTION WIDTH 16.2 % 11.6-14.4 H (BEAKER) (test code = 412) PLATELET COUNT (BEAKER) (test 195 K/CU MM 150-450 code = 756) MEAN PLATELET VOLUME (BEAKER) 10.5 fL 9.4-12.4 (test code = 754) NUCLEATED RED BLOOD CELLS 0 /100 WBC 0-0 (BEAKER) (test code = 413) NEUTROPHILS RELATIVE PERCENT 92 % (BEAKER) (test code = 429) LYMPHOCYTES RELATIVE PERCENT 4 % (BEAKER) (test code = 430) MONOCYTES RELATIVE PERCENT 3 % (BEAKER) (test code = 431) EOSINOPHILS RELATIVE PERCENT 0 % (BEAKER) (test code = 432) BASOPHILS RELATIVE PERCENT 0 % (BEAKER) (test code = 437) NEUTROPHILS ABSOLUTE COUNT 5.42 K/ L 1.78-5.38 H (BEAKER) (test code = 670) LYMPHOCYTES ABSOLUTE COUNT 0.24 K/ L 1.32-3.57 L (BEAKER) (test code = 414) MONOCYTES ABSOLUTE COUNT (BEAKER) 0.15 K/ L 0.30-0.82 L (test code = 415) EOSINOPHILS ABSOLUTE COUNT 0.00 K/ L 0.04-0.54 L (BEAKER) (test code = 416) BASOPHILS ABSOLUTE COUNT (BEAKER) 0.01 K/ L 0.01-0.08 (test code = 417) IMMATURE GRANULOCYTES-RELATIVE 1 % 0-1 PERCENT (BEAKER) (test code = 2801) BASIC METABOLIC [id number] 04:30:00 Test Item Value Reference Range Interpretation Comments SODIUM (BEAKER) 139 meq/L 136-145 (test code = 381) POTASSIUM (BEAKER) 4.4 meq/L 3.5-5.1 (test code = 379) CHLORIDE (BEAKER) 89 meq/L 98-107 L (test code = 382) CO2 (BEAKER) (test 38 meq/L 22-29 H code = 355) BLOOD UREA NITROGEN 20 mg/dL 7-21 (BEAKER) (test code = 354) CREATININE (BEAKER) 1.15 mg/dL 0.57-1.25 (test code = 358) GLUCOSE RANDOM 189 mg/dL 70-105 H (BEAKER) (test code = 652) CALCIUM (BEAKER) 8.4 mg/dL 8.4-10.2 (test code = 697) EGFR (BEAKER) (test 63 mL/min/1.73 ESTIMA SUSIE GFR IS code = 1092) sq m NOT ACCURATE CREATININE CLEARANCE IN PREDICTING GLOMERULAR FILTRATION RATE . ESTIMATED GFR I S NOT APPLICABLE FOR DIALYSIS PATIEN TS. Chocolate Temperer ID - CECILE [id number] 04:30:00 Test Item Value Reference Range Interpretation Comments MAGNESIUM (BEAKER) (test code = 2.3 mg/dL 1.6-2.6 627) Chocolate Temperer ID - CECILE MBLOOD GAS, [id number] 04:30:00 Test Item Value Reference Range Interpretation Comments PH ARTERIAL (BEAKER) (test code = 7.42 7.35-7.45 383) PCO2 ARTERIAL (BEAKER) (test code 68 mm Hg 35-45 H = 384) PO2 ARTERIAL (BEAKER) (test code 158 mm Hg 80-90 H = 385) O2 SATURATION ARTERIAL (BEAKER) 99.0 % 96.0-97.0 H (test code = 386) HCO3 ARTERIAL (BEAKER) (test code 43 mmol/L 21-29 HH = 388) BASE EXCESS ARTERIAL (BEAKER) 16.7 mmol/L -2.0-3.0 H (test code = 387) PATIENT TEMPERATURE (BEAKER) 36.8 (test code = 1818) FIO2 (BEAKER) (test code = 1819) 50.0 [id number] 04:23:00 Test Item Value Reference Range Interpretation Comments PARTIAL THROMBOPLASTIN TIME 101.0 seconds 22.5-36.0 H (BEAKER) (test code = 760) While on warfarin.PROTHROMBIN [id number] 04:19:00 Test Item Value Reference Range Interpretation Comments PROTIME (BEAKER) 22.6 seconds 11.9-14.2 H (test code = 759) INR (BEAKER) (test 2.07 See_Comment [Automat ed message] code = 370) The system [employer] generated this result transmitted ref erence range: <=5.90. The reference range was not used to int erpret this result as normal/abnormal . Effective 11/01/2018: PT Reference Range ChangeNew: 11.9-14.2 Previous: 11.7- 14.7RECOMMENDED COUMADIN/WARFARIN INR THERAPY RANGESSTANDARD DOSE: 2.0-3.0 Includes: PROPHYLAXIS for venous thrombosis, systemic embolization; TREATMENT for venous thrombosis and/or pulmonary embolus.HIGH RISK: Target INR is2.5-3.5 for patients wiht mechanical heart valves.While on warfarin.RAD, CHEST, 1 VIEW, NON [id number] 03:37:00Reason for exam:->pulmonary consolidationShould this be performed at the bedside?->Yes [facility] : 1950 Sex: MFINAL REPORT RAD, CHEST, 1 VIEW, NON DEPT INDICATION: pulmonary consolidation COMPARISON: Exam from 11 hours prior FINDINGS: Portable frontal view of the chest. IMPRESSION: Support Lines: Stable. Lungs and pleura: Unchanged extensive bilateral patchy opacities and small pleural effusions. No pneumothorax.Heart and mediastinum: Stable contours.Additional findings: None. Signed: Ariella Wang MDReport Verified Date/Time: 09/15/2020 03:37:20 BASIC METABOLIC [id number] 00:29:00 Test Item Value Reference Range Interpretation Comments SODIUM (BEAKER) 140 meq/L 136-145 (test code = 381) POTASSIUM (BEAKER) 4.2 meq/L 3.5-5.1 (test code = 379) CHLORIDE (BEAKER) 91 meq/L 98-107 L (test code = 382) CO2 (BEAKER) (test 36 meq/L 22-29 H code = 355) BLOOD UREA NITROGEN 16 mg/dL 7-21 (BEAKER) (test code = 354) CREATININE (BEAKER) 1.14 mg/dL 0.57-1.25 (test code = 358) GLUCOSE RANDOM 136 mg/dL 70-105 H (BEAKER) (test code = 652) CALCIUM (BEAKER) 8.6 mg/dL 8.4-10.2 (test code = 697) EGFR (BEAKER) (test 64 mL/min/1.73 ESTIMA SUSIE GFR IS code = 1092) sq m NOT ACCURATE CREATININE CLEARANCE IN PREDICTING GLOMERULAR FILTRATION RATE . ESTIMATED GFR I S NOT APPLICABLE FOR DIALYSIS PATIEN TS. Chocolate Temperer ID - DBBLOOD GAS, [id number] 00:28:00 Test Item Value Reference Range Interpretation Comments PH ARTERIAL (BEAKER) (test code = 7.42 7.35-7.45 383) PCO2 ARTERIAL (BEAKER) (test code 61 mm Hg 35-45 H = 384) PO2 ARTERIAL (BEAKER) (test code 165 mm Hg 80-90 H = 385) O2 SATURATION ARTERIAL (BEAKER) 99.1 % 96.0-97.0 H (test code = 386) HCO3 ARTERIAL (BEAKER) (test code 39 mmol/L 21-29 H = 388) BASE EXCESS ARTERIAL (BEAKER) 12.8 mmol/L -2.0-3.0 H (test code = 387) PATIENT TEMPERATURE (BEAKER) 36.7 (test code = 1818) FIO2 (BEAKER) (test code = 1819) 60.0 BASIC METABOLIC [id number] 22:23:00 Test Item Value Reference Range Interpretation Comments SODIUM (BEAKER) 139 meq/L 136-145 (test code = 381) POTASSIUM (BEAKER) 4.2 meq/L 3.5-5.1 (test code = 379) CHLORIDE (BEAKER) 91 meq/L 98-107 L (test code = 382) CO2 (BEAKER) (test 35 meq/L 22-29 H code = 355) BLOOD UREA NITROGEN 15 mg/dL 7-21 (BEAKER) (test code = 354) CREATININE (BEAKER) 1.07 mg/dL 0.57-1.25 (test code = 358) GLUCOSE RANDOM 126 mg/dL 70-105 H (BEAKER) (test code = 652) CALCIUM (BEAKER) 8.8 mg/dL 8.4-10.2 (test code = 697) EGFR (BEAKER) (test 69 mL/min/1.73 ESTIMA SUSIE GFR IS code = 1092) sq m NOT ACCURATE CREATININE CLEARANCE IN PREDICTING GLOMERULAR FILTRATION RATE . ESTIMATED GFR I S NOT APPLICABLE FOR DIALYSIS PATIEN TS. Chocolate Temperer ID - DBBASIC METABOLIC [id number] 18:33:00 Test Item Value Reference Range Interpretation Comments SODIUM (BEAKER) 141 meq/L 136-145 (test code = 381) POTASSIUM (BEAKER) 4.3 meq/L 3.5-5.1 (test code = 379) CHLORIDE (BEAKER) 95 meq/L 98-107 L (test code = 382) CO2 (BEAKER) (test 33 meq/L 22-29 H code = 355) BLOOD UREA NITROGEN 15 mg/dL 7-21 (BEAKER) (test code = 354) CREATININE (BEAKER) 0.90 mg/dL 0.57-1.25 (test code = 358) GLUCOSE RANDOM 129 mg/dL 70-105 H (BEAKER) (test code = 652) CALCIUM (BEAKER) 8.4 mg/dL 8.4-10.2 (test code = 697) EGFR (BEAKER) (test 84 mL/min/1.73 ESTIMA SUSIE GFR IS code = 1092) sq m NOT ACCURATE CREATININE CLEARANCE IN PREDICTING GLOMERULAR FILTRATION RATE . ESTIMATED GFR I S NOT APPLICABLE FOR DIALYSIS PATIEN TS. Chocolate Temperer ID - [id number] 18:33:00 Test Item Value Reference Range Interpretation Comments MAGNESIUM (BEAKER) (test code = 1.7 mg/dL 1.6-2.6 627) Chocolate Temperer ID - [id number] 18:33:00 Test Item Value Reference Range Interpretation Comments PHOSPHORUS (BEAKER) (test code = 4.0 mg/dL 2.3-4.7 604) Chocolate Temperer ID - DBCBC W/PLT COUNT & AUTO [id number] 18:16:00 Test Item Value Reference Range Interpretation Comments WHITE BLOOD CELL COUNT (BEAKER) 10.0 K/ L 3.5-10.5 (test code = 775) RED BLOOD CELL COUNT (BEAKER) 2.73 M/ L 4.63-6.08 L (test code = 761) HEMOGLOBIN (BEAKER) (test code = 7.5 GM/DL 13.7-17.5 L 410) HEMATOCRIT (BEAKER) (test code = 24.5 % 40.1-51.0 L 411) MEAN CORPUSCULAR VOLUME (BEAKER) 89.7 fL 79.0-92.2 (test code = 753) MEAN CORPUSCULAR HEMOGLOBIN 27.5 pg 25.7-32.2 (BEAKER) (test code = 751) MEAN CORPUSCULAR HEMOGLOBIN CONC 30.6 GM/DL 32.3-36.5 L (BEAKER) (test code = 752) RED CELL DISTRIBUTION WIDTH 16.5 % 11.6-14.4 H (BEAKER) (test code = 412) PLATELET COUNT (BEAKER) (test 214 K/CU MM 150-450 code = 756) MEAN PLATELET VOLUME (BEAKER) 10.5 fL 9.4-12.4 (test code = 754) NUCLEATED RED BLOOD CELLS 0 /100 WBC 0-0 (BEAKER) (test code = 413) NEUTROPHILS RELATIVE PERCENT 84 % (BEAKER) (test code = 429) LYMPHOCYTES RELATIVE PERCENT 5 % (BEAKER) (test code = 430) MONOCYTES RELATIVE PERCENT 10 % (BEAKER) (test code = 431) EOSINOPHILS RELATIVE PERCENT 0 % (BEAKER) (test code = 432) BASOPHILS RELATIVE PERCENT 0 % (BEAKER) (test code = 437) NEUTROPHILS ABSOLUTE COUNT 8.39 K/ L 1.78-5.38 H (BEAKER) (test code = 670) LYMPHOCYTES ABSOLUTE COUNT 0.49 K/ L 1.32-3.57 L (BEAKER) (test code = 414) MONOCYTES ABSOLUTE COUNT (BEAKER) 0.97 K/ L 0.30-0.82 H (test code = 415) EOSINOPHILS ABSOLUTE COUNT 0.03 K/ L 0.04-0.54 L (BEAKER) (test code = 416) BASOPHILS ABSOLUTE COUNT (BEAKER) 0.03 K/ L 0.01-0.08 (test code = 417) IMMATURE GRANULOCYTES-RELATIVE 1 % 0-1 PERCENT (BEAKER) (test code = 2801) BLOOD GAS, [id number] 17:48:00 Test Item Value Reference Range Interpretation Comments PH ARTERIAL (BEAKER) (test code = 7.43 7.35-7.45 383) PCO2 ARTERIAL (BEAKER) (test code 56 mm Hg 35-45 H = 384) PO2 ARTERIAL (BEAKER) (test code 128 mm Hg 80-90 H = 385) O2 SATURATION ARTERIAL (BEAKER) 98.5 % 96.0-97.0 H (test code = 386) HCO3 ARTERIAL (BEAKER) (test code 36 mmol/L 21-29 H = 388) BASE EXCESS ARTERIAL (BEAKER) 10.7 mmol/L -2.0-3.0 H (test code = 387) PATIENT TEMPERATURE (BEAKER) 37.0 (test code = 1818) FIO2 (BEAKER) (test code = 1819) 60.0 CT, CHEST, WITHOUT [id number] 17:35:00Unlisted Reason for Exam - Click Yes and Enter Reason Below->No [facility] : 1950 Sex: MFINAL REPORT TECHNIQUE: CT scan of the chest WITHOUT intravenous contrast. Dose modulation, iterative reconstruction, and/or weight-based adjustment of the mA/kV was utilized to reduce the radiation dose to as low as reasonably achievable. INDICATION: Dyspnea, chronic. COMPARISON: Chest CT from 08/20/2020 FINDINGS: ABSENCE OF INTRAVENOUS CONTRAST DECREASES SENSITIVITY FOR DETECTION OF FOCAL LESIONS AND VASCULAR PATHOLOGY. LINES/TUBES: A left chest cardiac device has leads in the right atrium and ventricle. LUNGS AND AIRWAYS: There are interstitial and groundglass opacities throughout the right lung. There are prominent interstitial opacities throughout the left lung. All of these opacities have increased compared to the prior examination. There is mild scattered air trapping. PLEURA: There are small bilateral loculated pleural effusions, left slightly larger than the right. There is a loculated effusion along the right major fissure. HEART AND MEDIASTINUM:The visualized thyroid gland is normal. There are some scattered fluid in the mediastinum which is si milar to the prior examination. Prominent mediastinal lymph nodes measure up to 1.4 cm in the right lower paratracheal region. There appears to be transarterial mitral valve as well as a prosthetic aortic valve. There is calcification of the ascending thoracic aorta, aortic arch, and arch branch vessels. The right brachycephalic artery is prominent at 2.6 cm in diameter, likely unchanged given differences in imaging technique. The main pulmonary artery is dilated at 3.9 cm in diameter. SOFT TISSUES AND BONES: Prior median sternotomy.. UPPER ABDOMEN: Unremarkable. IMPRESSION: 1.There are extensive bilateral interstitial and groundglass opacities of the lungs, greater on the left than right, which have increased compared to the prior examination. This is nonspecific and could be due to pulmonary edema or infection. The bilateral loculated pleural effusions increase the possibility of infection, although not definitive given the history of prior asbestos exposure. 2.The dilation of the main pulmonary artery is concerning for pulmonary arterial hypertension. 3.The prominent mediastinal lymph nodes are nonspecific but likely reactive. Signed: Arturo Hurtado MDReport Verified Date/Time: 09/14/2020 17:35:29 Reading Location: [facility] [id number] Ortho Consult Reading Room CT chest without IV [id number] 17:35:00Interface, External Ris In - 09/14/2020 5:37 PM CDTFINAL REPORT TECHNIQUE: CT scan of the chest WITHOUT intravenous contrast. Dose modulation, iterative reconstruction, and/or weight-based adjustment of the mA/kV was utilized to reduce the radiation dose to as low as reasonablyachievable. INDICATION: Dyspnea, chronic. COMPARISON: Chest CT from 08/20/2020 FINDINGS: ABSENCE OFINTRAVENOUS CONTRAST DECREASES SENSITIVITY FOR DETECTION OF FOCAL LESIONS AND VASCULAR PATHOLOGY. LINES/TUBES: A left chest cardiac device has leads in the right atrium and ventricle. LUNGS AND AIRWAYS: There are interstitial and groundglass opacities throughout the right lung. There are prominent interstitial opacities throughout the left lung. All of these opacities have increased compared to the prior examination. There is mild scattered air trapping. PLEURA: There are small bilateral loculated pleural effusions, left slightly larger than the right. There is a loculated effusion along the right major fissure. HEART AND MEDIASTINUM: The visualized thyroid gland is normal. There are some scattered fluid in the mediastinum which is similar to the prior examination. Prominent mediastinal lymph nodes measure up to 1.4 cm in the right lower paratracheal region. There appears to be transarterial mitral valve as well as a prosthetic aortic valve. There is calcification of the ascending thoracic aorta, aortic arch, and arch branch vessels. The right brachycephalic artery is prominent at 2.6 cm in diameter, likely unchanged given differences in imaging technique. The main pulmonary artery is dilatedat 3.9 cm in diameter. SOFT TISSUES AND BONES: Prior median sternotomy.. UPPER ABDOMEN: Unremarkable. IMPRESSION: 1.There are extensive bilateral interstitial and groundglass opacities of the lungs, greater on the left than right, which have increased compared to the prior examination. This is nonspecific and could be due to pulmonary edema or infection. The bilateral loculated pleural effusions increase the possibility of infection, although not definitive given the history of prior asbestos exposure. 2.The dilation of the main pulmonary artery is concerning for pulmonary arterial hypertension. 3.The prominent mediastinal lymph nodes are nonspecific but likely reactive. Signed: Arturo Hurtado MDReport Verified Date/Time: 09/14/2020 17:35:29 Reading Location: [address] Ortho Consult [facility]2020-09-14 15:20:00 Test Item Value Reference Range Interpretation Comments BNP (test code = 00526-1) 204 pg/mL 0-100 H KANCHAN (test code = KANCHAN) Chocolate Temperer ID - DB Lab Interpretation (test Abnormal code = 46490-9) [facility] (BNP)2020-09-14 15:20:00 Test Item Value Reference Range Interpretation Comments B-TYPE NATRIURETIC PEPTIDE (BEAKER) 204 pg/mL 0-100 H (test code = 700) Chocolate Temperer ID - DBCBC W/PLT COUNT & AUTO [id number] 15:15:00 Test Item Value Reference Range Interpretation Comments WHITE BLOOD CELL COUNT (BEAKER) 7.5 K/ L 3.5-10.5 (test code = 775) RED BLOOD CELL COUNT (BEAKER) 3.05 M/ L 4.63-6.08 L (test code = 761) HEMOGLOBIN (BEAKER) (test code = 8.3 GM/DL 13.7-17.5 L 410) HEMATOCRIT (BEAKER) (test code = 27.6 % 40.1-51.0 L 411) MEAN CORPUSCULAR VOLUME (BEAKER) 90.5 fL 79.0-92.2 (test code = 753) MEAN CORPUSCULAR HEMOGLOBIN 27.2 pg 25.7-32.2 (BEAKER) (test code = 751) MEAN CORPUSCULAR HEMOGLOBIN CONC 30.1 GM/DL 32.3-36.5 L (BEAKER) (test code = 752) RED CELL DISTRIBUTION WIDTH 16.5 % 11.6-14.4 H (BEAKER) (test code = 412) PLATELET COUNT (BEAKER) (test 244 K/CU MM 150-450 code = 756) MEAN PLATELET VOLUME (BEAKER) 10.8 fL 9.4-12.4 (test code = 754) NUCLEATED RED BLOOD CELLS 0 /100 WBC 0-0 (BEAKER) (test code = 413) NEUTROPHILS RELATIVE PERCENT 70 % (BEAKER) (test code = 429) LYMPHOCYTES RELATIVE PERCENT 14 % (BEAKER) (test code = 430) MONOCYTES RELATIVE PERCENT 13 % (BEAKER) (test code = 431) EOSINOPHILS RELATIVE PERCENT 1 % (BEAKER) (test code = 432) BASOPHILS RELATIVE PERCENT 0 % (BEAKER) (test code = 437) NEUTROPHILS ABSOLUTE COUNT 5.23 K/ L 1.78-5.38 (BEAKER) (test code = 670) LYMPHOCYTES ABSOLUTE COUNT 1.08 K/ L 1.32-3.57 L (BEAKER) (test code = 414) MONOCYTES ABSOLUTE COUNT (BEAKER) 0.99 K/ L 0.30-0.82 H (test code = 415) EOSINOPHILS ABSOLUTE COUNT 0.06 K/ L 0.04-0.54 (BEAKER) (test code = 416) BASOPHILS ABSOLUTE COUNT (BEAKER) 0.03 K/ L 0.01-0.08 (test code = 417) IMMATURE GRANULOCYTES-RELATIVE 1 % 0-1 PERCENT (BEAKER) (test code = 2801) [id number] 14:54:00 Test Item Value Reference Range Interpretation Comments POC-Glucose (test code = 136 mg/dL 70-110 H : T ESTED AT [facility] 1855) [address] [facility], [address]: Chocolate Temperer/Techni hilary ID = [id number] for JASON STATON Lab Interpretation (test Abnormal code = 82730-1) [facility] CenterPOCT-[id number] 14:54:00 Test Item Value Reference Range Interpretation Comments POC-GLUCOSE (BEAKER) 136 mg/dL 70-110 H : TESTE D AT [facility] 6720 (test code = 1855) [place], [address]: Chocolate Temperer/Techni hilary ID = [id number] for JASON STATON POC-Blood gases, [id number] 14:53:00 Test Item Value Reference Range Interpretation Comments Temp. Celsius-POC (test code = 1834) FIO2-POC (test code = 1835) pH, Arterial-POC (test 7.414 7.350-7.450 code = 1836) PCO2, Arterial-POC 58.7 See_Comment H If pO2 is >180, pCO2 (test code = 1837) may be po sitively biased [Automat ed message] The sy stem which generated this result transmit susie reference range : 35.0 - 45.0 mm Hg. The reference r katty was not used to interpret this result as normal/abnormal . PO2, Arterial-POC (test 131.0 See_Comment H [Au tomated message] code = 1838) The system [employer] generated this result transmit susie reference range : 80.0 - 90.0 mm Hg. The reference r katty was not used to interpret this result as normal/abnormal . SO2, Arterial-POC (test 99.0 % 96-97 H code = 1839) HCO3, Arterilal-POC 37.5 meq/L 21-29 H (test code = 1840) BE, Arterial-POC (test 13.0 meq/L -2-3 H : ETIENNE SUSIE AT [facility] code = 1841) [address] [place], [address]: Chocolate Temperer/Techni hilary ID = [id number] for JASON STATON Lab Interpretation Abnormal (test code = 01609-6) [facility]-[id number] 14:53:00 Test Item Value Reference Range Interpretation Comments POC-Potassium (test code 4.2 meq/L 3.6-5.5 : T ROBERT AT [facility] = 1540) [address] [facility] [place], [address]: Chocolate Temperer/Techni hilary ID = [id number] for JASON STATON Lab Interpretation (test Normal code = 84206-3) [facility]-[id number] 14:53:00 Test Item Value Reference Range Interpretation Comments POC-Sodium (test code = 136 meq/L 135-148 : TE STED AT [facility] 1542) [address] [facility], [address]: Chocolate Temperer/Techni hilary ID = [id number] for JASON STATON Lab Interpretation (test Normal code = 03200-7) [facility]-[id number] 14:53:00 Test Item Value Reference Range Interpretation Comments POC-Hemoglobin (test code 8.8 g/dL 13-16.8 L : TESTED AT [facility] = 1856) [address] [facility], [address]: Chocolate Temperer/Techni hilary ID = [id number] for JASON STATON Lab Interpretation (test Abnormal code = 43161-0) [facility]-[id number] 14:53:00 Test Item Value Reference Range Interpretation Comments POC-Hematocrit (test code 26 % 40-50 L : = 1857) Chocolate Temperer/Techni hilary ID = [id number] for JASON STATON Lab Interpretation (test Abnormal code = 00629-0) [facility]-BLOOD GASES, [id number] 14:53:00 Test Item Value Reference Range Interpretation Comments TEMP, CELSIUS-POC (BEAKER) (test code = 1834) FIO2-POC (BEAKER) (test code = 1835) PH, ARTERIAL-POC 7.414 7.350-7.450 (BEAKER) (test code = 1836) PCO2, ARTERIAL-POC 58.7 mm Hg 35.0-45.0 H If pO2 is >180, pCO2 may (BEAKER) (test be positively biased code = 1837) PO2, ARTERIAL-POC 131.0 mm Hg 80.0-90.0 H (BEAKER) (test code = 1838) SO2, ARTERIAL-POC 99.0 % 96.0-97.0 H (BEAKER) (test code = 1839) HCO3, ARTERIAL-POC 37.5 meq/L 21.0-29.0 H (BEAKER) (test code = 1840) BASE EXCESS, 13.0 meq/L -2.0-3.0 H : [facility] 6720 [facility] ([facility] (test [address]: code = 1841) Chocolate Temperer/Techni hilary ID = [id number] for JASON STATON [id number] 14:53:00 Test Item Value Reference Range Interpretation Comments POC-SODIUM (BEAKER) 136 meq/L 135-148 : TESTED AT [facility] 67 (test code = 1542) JCARL[address] [facility], [address]: Chocolate Temperer/Techni hilary ID = [id number] for JASON STATON [id number] 14:53:00 Test Item Value Reference Range Interpretation Comments POC-POTASSIUM 4.2 meq/L 3.6-5.5 : TESTED AT [place] [address] (BEAKER) (test code [facility], = 1540) [address]: Chocolate Temperer/Techni hilary ID = [id number] for JASON STATON [id number] 14:53:00 Test Item Value Reference Range Interpretation Comments POC-HEMOGLOBIN 8.8 g/dL 13.0-16.8 L : TESTED AT [facility] 67 (BEAKER) (test code = [facility], 1856) [address]: Chocolate Temperer/Techni hilary ID = [id number] for JASON STATON [id number] 14:53:00 Test Item Value Reference Range Interpretation Comments POC-HEMATOCRIT 26 % 40-50 L : Chocolate Temperer/Te chnician ID = (BEAKER) (test code = 484050 for JASON STATON 185) LACTIC ACID, [id number] 14:51:00 Test Item Value Reference Range Interpretation Comments LACTATE BLOOD ARTERIAL (2) 1.0 mmol/L 0.5-2.2 (BEAKER) (test code = 2874) Chocolate Temperer ID - MARIBELLSONRAD, CHEST, 1 VIEW, NON [id number] 14:12:00Reason for exam:->DyspneaShould this be performed at the bedside?->Yes [facility] 1950 Sex: MFINAL REPORT TECHNIQUE: Frontal view of the chest. INDICATION:Dyspnea COMPARISON:09/08/2020 DISCUSSION:Limited evaluation due to portable technique. Lines and hardware: Stable left chest wall dual-lead ICD and midline sternotomy changes.Heart and mediastinum: Stable.Lungs and pleura: Interval worsening of multifocal bilateral airspace opacities. Stable trace bilateral pleural effusions. Negative for large pneumothorax.Soft tissues and bones: No acute abnormality.IMPRESSION:Interval worsening of multifocal patchy bilateral airspace opacities concerning for multifocal pneumonia and/or pulmonary edema. Stable trace bilateral layering pleural effusions. Signed: Tito Castañeda MDReport Verified Date/Time: 09/14/2020 14:12:38 Reading Location: [address] Reading Room POCT-GLUCOSE [id number] 12:22:00 Test Item Value Reference Range Interpretation Comments POC-GLUCOSE METER 126 mg/dL 70-110 H : TESTED A T [facility] 6720 (Stratoscale) (test code = [facility], 1538) [address]: Chocolate Temperer/Techni hilary ID = [id number] for OR PHEY, LALA POCT-GLUCOSE [id number] 09:08:00 Test Item Value Reference Range Interpretation Comments POC-GLUCOSE METER 106 mg/dL 70-110 : TESTED A T [facility] 6720 (BEAKER) (test code = [facility], 1538) [address]: Chocolate Temperer/Techni hilary ID = [id number] for OR PHEY, LALA BASIC METABOLIC [id number] 07:31:00 Test Item Value Reference Range Interpretation Comments SODIUM (BEAKER) 140 meq/L 136-145 (test code = 381) POTASSIUM (BEAKER) 4.4 meq/L 3.5-5.1 (test code = 379) CHLORIDE (BEAKER) 96 meq/L 98-107 L (test code = 382) CO2 (BEAKER) (test 36 meq/L 22-29 H code = 355) BLOOD UREA NITROGEN 15 mg/dL 7-21 (BEAKER) (test code = 354) CREATININE (BEAKER) 0.95 mg/dL 0.57-1.25 (test code = 358) GLUCOSE RANDOM 108 mg/dL 70-105 H (BEAKER) (test code = 652) CALCIUM (BEAKER) 8.3 mg/dL 8.4-10.2 L (test code = 697) EGFR (BEAKER) (test 79 mL/min/1.73 ESTIMA SUSIE GFR IS code = 1092) sq m NOT ACCURATE CREATININE CLEARANCE IN PREDICTING GLOMERULAR FILTRATION RATE . ESTIMATED GFR I S NOT APPLICABLE FOR DIALYSIS PATIEN TS. Chocolate Temperer ID - CECILE [id number] 07:31:00 Test Item Value Reference Range Interpretation Comments MAGNESIUM (BEAKER) (test code = 1.7 mg/dL 1.6-2.6 627) Chocolate Temperer ID - CECILE [id number] 07:22:00 Test Item Value Reference Range Interpretation Comments PARTIAL THROMBOPLASTIN TIME 75.1 seconds 22.5-36.0 H (BEAKER) (test code = 760) While on warfarin.PROTHROMBIN [id number] 07:21:00 Test Item Value Reference Range Interpretation Comments PROTIME (BEAKER) 16.2 seconds 11.9-14.2 H (test code = 759) INR (BEAKER) (test 1.34 See_Comment [Automat ed message] code = 370) The system [employer] generated this result transmitted ref erence range: <=5.90. The reference range was not used to int erpret this result as normal/abnormal . Effective 11/01/2018: PT Reference Range ChangeNew: 11.9-14.2 Previous: 11.7- 14.7RECOMMENDED COUMADIN/WARFARIN INR THERAPY RANGESSTANDARD DOSE: 2.0-3.0 Includes: PROPHYLAXIS for venous thrombosis, systemic embolization; TREATMENT for venous thrombosis and/or pulmonary embolus.HIGH RISK: Target INR is2.5-3.5 for patients wiht mechanical heart valves.While on warfarin.PROTHROMBIN TIME/INR 2020-09-14 07:20:00 Test Item Value Reference Range Interpretation Comments PROTIME (BEAKER) 16.3 seconds 11.9-14.2 H (test code = 759) INR (BEAKER) (test 1.35 See_Comment [Automat ed message] code = 370) The system [employer] generated this result transmitted ref erence range: <=5.90. The reference range was not used to int erpret this result as normal/abnormal . Effective 11/01/2018: PT Reference Range ChangeNew: 11.9-14.2 Previous: 11.7- 14.7RECOMMENDED COUMADIN/WARFARIN INR THERAPY RANGESSTANDARD DOSE: 2.0-3.0 Includes: PROPHYLAXIS for venous thrombosis, systemic embolization; TREATMENT for venous thrombosis and/or pulmonary embolus.HIGH RISK: Target INR is2.5-3.5 for patients wiht mechanical heart valves.While on warfarin.CALCIUM, IONIZED 2020-09-14 07:15:00 Test Item Value Reference Range Interpretation Comments CALCIUM IONIZED (BEAKER) (test 1.10 mmol/L 1.12-1.27 L code = 698) PH, BLOOD (BEAKER) (test code = 7.34 1810) CBC W/PLT COUNT & AUTO [id number] 07:12:00 Test Item Value Reference Range Interpretation Comments WHITE BLOOD CELL COUNT (BEAKER) 6.1 K/ L 3.5-10.5 (test code = 775) RED BLOOD CELL COUNT (BEAKER) 2.72 M/ L 4.63-6.08 L (test code = 761) HEMOGLOBIN (BEAKER) (test code = 7.5 GM/DL 13.7-17.5 L 410) HEMATOCRIT (BEAKER) (test code = 24.2 % 40.1-51.0 L 411) MEAN CORPUSCULAR VOLUME (BEAKER) 89.0 fL 79.0-92.2 (test code = 753) MEAN CORPUSCULAR HEMOGLOBIN 27.6 pg 25.7-32.2 (BEAKER) (test code = 751) MEAN CORPUSCULAR HEMOGLOBIN CONC 31.0 GM/DL 32.3-36.5 L (BEAKER) (test code = 752) RED CELL DISTRIBUTION WIDTH 16.8 % 11.6-14.4 H (BEAKER) (test code = 412) PLATELET COUNT (BEAKER) (test 210 K/CU MM 150-450 code = 756) MEAN PLATELET VOLUME (BEAKER) 10.4 fL 9.4-12.4 (test code = 754) NUCLEATED RED BLOOD CELLS 0 /100 WBC 0-0 (BEAKER) (test code = 413) NEUTROPHILS RELATIVE PERCENT 72 % (BEAKER) (test code = 429) LYMPHOCYTES RELATIVE PERCENT 12 % (BEAKER) (test code = 430) MONOCYTES RELATIVE PERCENT 13 % (BEAKER) (test code = 431) EOSINOPHILS RELATIVE PERCENT 2 % (BEAKER) (test code = 432) BASOPHILS RELATIVE PERCENT 0 % (BEAKER) (test code = 437) NEUTROPHILS ABSOLUTE COUNT 4.39 K/ L 1.78-5.38 (BEAKER) (test code = 670) LYMPHOCYTES ABSOLUTE COUNT 0.74 K/ L 1.32-3.57 L (BEAKER) (test code = 414) MONOCYTES ABSOLUTE COUNT (BEAKER) 0.77 K/ L 0.30-0.82 (test code = 415) EOSINOPHILS ABSOLUTE COUNT 0.10 K/ L 0.04-0.54 (BEAKER) (test code = 416) BASOPHILS ABSOLUTE COUNT (BEAKER) 0.02 K/ L 0.01-0.08 (test code = 417) IMMATURE GRANULOCYTES-RELATIVE 1 % 0-1 PERCENT (BEAKER) (test code = 2801) POCT-GLUCOSE [id number] 21:02:00 Test Item Value Reference Range Interpretation Comments POC-GLUCOSE METER 108 mg/dL 70-110 : TESTED A T [facility] 6720 (BEAKER) (test code = [facility] [place], 1538) [address]: Chocolate Temperer/Techni hilary ID = [id number] for NILSA LEONARD POCT-GLUCOSE [id number] 17:14:00 Test Item Value Reference Range Interpretation Comments POC-GLUCOSE METER 132 mg/dL 70-110 H : TESTED A T [facility] 6720 (BEAKER) (test [facility], [address]: code = 1538) Chocolate Temperer/Techni hilary ID = [id number] for GLENYS CARRILLO IN Limited 2D [id number] 16:47:22Ejection FractionSLEH ECHO HEARTLAB MKCKESSON CPACSInterface, External Ris In - 09/13/2020 4:47 PM CDTTransthoracic Echocardiography Report (TTE) Demographics Patient Name ARIELLA PARKER Date of Study 09/13/2020 APRIL GenderMale Visit Number [id number] Race Room Number 1161 Number Date of 1950 Referring NOY Gustafson Physician Age 70 year(s) 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 Septal motion is abnormal, likely related to prior cardiac surgery . The other segments are hyperdynamic. LVEF by Fry's method of disk assessment is increased (>60%) . Degree of diastolic dysfunction (LAP assessment) is inconclusive due to prosthetic MV . The prosthetic AoV appearswell-seated with normal function by Doppler. A bioprosthetic ( Pratik 29mm) MV prosthesis is visualized with normal function by Doppler . Mean MVR gradient = 9 mmHg @ HR of 86 bpm. Prosthetic MV regurgitation is not appreciated on this study. MV gradients are moderately increased in part due to anemia ( HGB = 7.4 gm/dl). Estimated peak systolic PA pressure is 55-60 mmHg (moderate pulmonary hypertension) . Global RV systolic function is depressed . Signature Findings Techn ical Quality: Technically difficult exam. Left Ventricle LV endocardium is adequately visualized with IV ultrasound enhancing agent. The left ventricle is chamber size (by vol index) is normal (male - LVED vol - 34-74ml/m2). No evidence of LV hypertrophy. Septal motion is abnormal, likely related to prior cardiac surgery . The other segments are hyperdynamic. Global LV systolic function hyperdynamic . LVEF by Fry's method of disk assessment is increased (>60%) . Degree of diastolic dysfunction (LAP assessment) is inconclusive due to prosthetic MV . Left Atrium LA is incompletely visualized, size based on linear measurement. LA size is enlarged Right Ventricle RV chamber size is normal . Global RV systolic function is depressed . Right Atrium RA size is probably normal based on available views. Aortic Valve A biologic AoVprosthesis is visualized . The prosthetic AoV appears well-seated with normal function by Doppler. DOI = 0.6. Mean AVR gradient = 8 mmHg. Prosthetic AoV regurgitaton is not demonstrated . Mitral Valve A bioprosthetic ( Pratik 29mm) MV prosthesis is visualized with normal function by Doppler . Mean MVR gradient = 9 mmHg @ HR of 86 bpm. Prosthetic MV regurgitation is not appreciated on this study. MV gradients are moderately increased in part due to anemia ( HGB = 7.4 gm/dl) TricuspidValve TV structure is normal. Mild tricuspid regurgitation. Estimated peak systolic PA pressure is 55-60 mmHg (moderate pulmonary hypertension) . Pulmonic Valve Normal PV structure. Cjnl-bc-tmcczsrf pulmonary regurgitation. Aorta Aortic root size (SInus of Valsalva diameter) is normal . Pericardium A trivial pericardial effusion is present . IVC/SVC/PA/PV/Pleural The estimated RA pressure by IVC dynamics 5-10mmHg . Chambers/Structures Left Ventricle LVIDd: 3.71 cm LV Septum Diastolic: 0.71 cm LV PW Diastolic: 0.73cm LVEDV Fry's:125.79 ml LVESV Fry's:39.3 ml LVEF Fry's: 68.8 % LVEDVI: 59 ml/m^2 LVESVI: 18 ml/m^2 Aorta Ao Root S of Leatha.: 3.46 cm Doppler/Quantitative Measurements Mitral Valve MV Peak E-Wave: 1.8 m/s MV PeakA-Wave: 0.89 m/s P1/2t: 84.4 msec E/A Ratio: 2.03 Mean Velocity: 1.43 m/s Peak Gradient: 12.96 mmHg Mean Gradient: 9.05 mmHg Deceleration Time: 291 msec MV Area (PHT): 2.61 cm^2 MV VTI: 61.38 cm MV Gaurav. Peak: 2.16 m/s Aortic Valve Peak Velocity: 2.09 m/s Mean Velocity: 1.32 m/s Peak Gradient: 17.54 mmHg Mean Gradient: 8.42 mmHg AV VTI: 37.43 cm AV DVI: 0.6 LVOT Peak Velocity: 1.32 m/s Peak Gradient: 6.93 mmHg Mean Velocity: 0.8 m/s Mean Gradient: 3.17 mmHg LVOT VTI: 22.57 cm Tricuspid Valve TR Velocity: 3.4 m/s TR Gradient: 46.25 [facility] PO[facility]SE [id number] 12:00:00 Test Item Value Reference Range Interpretation Comments POC-GLUCOSE METER 171 mg/dL 70-110 H : TESTED A T [facility] (Stratoscale) (test [place], [address]: code = 1538) Chocolate Temperer/Techni hilary ID = [id number] for GLENYS CARRILLO IN POCT-GLUCOSE [id number] 07:52:00 Test Item Value Reference Range Interpretation Comments POC-GLUCOSE METER 129 mg/dL 70-110 H : TESTED A T [facility] 6720 (Stratoscale) ([place], [address]: code = 1538) Chocolate Temperer/Techni hilary ID = [id number] for GLENYS CARRILLO IN BASIC METABOLIC [id number] 07:38:00 Test Item Value Reference Range Interpretation Comments SODIUM (BEAKER) 141 meq/L 136-145 (test code = 381) POTASSIUM (BEAKER) 4.1 meq/L 3.5-5.1 (test code = 379) CHLORIDE (BEAKER) 100 meq/L 98-107 (test code = 382) CO2 (BEAKER) (test 31 meq/L 22-29 H code = 355) BLOOD UREA NITROGEN 15 mg/dL 7-21 (BEAKER) (test code = 354) CREATININE (BEAKER) 0.86 mg/dL 0.57-1.25 (test code = 358) GLUCOSE RANDOM 130 mg/dL 70-105 H (BEAKER) (test code = 652) CALCIUM (BEAKER) 8.5 mg/dL 8.4-10.2 (test code = 697) EGFR (BEAKER) (test 88 mL/min/1.73 ESTIMA SUSIE GFR IS code = 1092) sq m NOT ACCURATE CREATININE CLEARANCE IN PREDICTING GLOMERULAR FILTRATION RATE . ESTIMATED GFR I S NOT APPLICABLE FOR DIALYSIS PATIEN TS. Chocolate Temperer ID - [id number] 07:38:00 Test Item Value Reference Range Interpretation Comments MAGNESIUM (BEAKER) (test code = 1.9 mg/dL 1.6-2.6 627) Chocolate Temperer ID - [id number] 07:23:00 Test Item Value Reference Range Interpretation Comments PARTIAL THROMBOPLASTIN TIME 64.0 seconds 22.5-36.0 H (BEAKER) (test code = 760) While on warfarin.PROTHROMBIN [id number] 07:22:00 Test Item Value Reference Range Interpretation Comments PROTIME (BEAKER) 15.4 seconds 11.9-14.2 H (test code = 759) INR (BEAKER) (test 1.27 See_Comment [Automat ed message] code = 370) The system [employer] generated this result transmitted ref erence range: <=5.90. The reference range was not used to int erpret this result as normal/abnormal . Effective 11/01/2018: PT Reference Range ChangeNew: 11.9-14.2 Previous: 11.7- 14.7RECOMMENDED COUMADIN/WARFARIN INR THERAPY RANGESSTANDARD DOSE: 2.0-3.0 Includes: PROPHYLAXIS for venous thrombosis, systemic embolization; TREATMENT for venous thrombosis and/or pulmonary embolus.HIGH RISK: Target INR is2.5-3.5 for patients wiht mechanical heart valves.While on warfarin.CALCIUM, IONIZED 2020-09-13 07:15:00 Test Item Value Reference Range Interpretation Comments CALCIUM IONIZED (BEAKER) (test 1.08 mmol/L 1.12-1.27 L code = 698) PH, BLOOD (BEAKER) (test code = 7.40 1810) CBC W/PLT COUNT & AUTO [id number] 07:10:00 Test Item Value Reference Range Interpretation Comments WHITE BLOOD CELL COUNT (BEAKER) 5.2 K/ L 3.5-10.5 (test code = 775) RED BLOOD CELL COUNT (BEAKER) 2.67 M/ L 4.63-6.08 L (test code = 761) HEMOGLOBIN (BEAKER) (test code = 7.4 GM/DL 13.7-17.5 L 410) HEMATOCRIT (BEAKER) (test code = 24.1 % 40.1-51.0 L 411) MEAN CORPUSCULAR VOLUME (BEAKER) 90.3 fL 79.0-92.2 (test code = 753) MEAN CORPUSCULAR HEMOGLOBIN 27.7 pg 25.7-32.2 (BEAKER) (test code = 751) MEAN CORPUSCULAR HEMOGLOBIN CONC 30.7 GM/DL 32.3-36.5 L (BEAKER) (test code = 752) RED CELL DISTRIBUTION WIDTH 16.3 % 11.6-14.4 H (BEAKER) (test code = 412) PLATELET COUNT (BEAKER) (test 195 K/CU MM 150-450 code = 756) MEAN PLATELET VOLUME (BEAKER) 10.5 fL 9.4-12.4 (test code = 754) NUCLEATED RED BLOOD CELLS 0 /100 WBC 0-0 (BEAKER) (test code = 413) NEUTROPHILS RELATIVE PERCENT 68 % (BEAKER) (test code = 429) LYMPHOCYTES RELATIVE PERCENT 15 % (BEAKER) (test code = 430) MONOCYTES RELATIVE PERCENT 14 % (BEAKER) (test code = 431) EOSINOPHILS RELATIVE PERCENT 2 % (BEAKER) (test code = 432) BASOPHILS RELATIVE PERCENT 0 % (BEAKER) (test code = 437) NEUTROPHILS ABSOLUTE COUNT 3.57 K/ L 1.78-5.38 (BEAKER) (test code = 670) LYMPHOCYTES ABSOLUTE COUNT 0.76 K/ L 1.32-3.57 L (BEAKER) (test code = 414) MONOCYTES ABSOLUTE COUNT (BEAKER) 0.71 K/ L 0.30-0.82 (test code = 415) EOSINOPHILS ABSOLUTE COUNT 0.10 K/ L 0.04-0.54 (BEAKER) (test code = 416) BASOPHILS ABSOLUTE COUNT (BEAKER) 0.01 K/ L 0.01-0.08 (test code = 417) IMMATURE GRANULOCYTES-RELATIVE 2 % 0-1 H PERCENT (BEAKER) (test code = 2801) POCT-GLUCOSE [id number] 21:52:00 Test Item Value Reference Range Interpretation Comments POC-GLUCOSE METER 160 mg/dL 70-110 H : TESTED A T [facility] 6720 (BEAKER) (test code = [facility] [employer], 1538) [id number]: Chocolate Temperer/Techni hilary ID = [id number] for ALESHA PHILLNILSA POCT-GLUCOSE [id number] 17:45:00 Test Item Value Reference Range Interpretation Comments POC-GLUCOSE METER 136 mg/dL 70-110 H : TESTED A T [facility] 6720 (BEAKER) (test code = [facility], 1538) [address]: Chocolate Temperer/Techni hilary ID = [id number] for ISAIAS VALDIVIA ECG 12 [id number] 15:24:02Interface, External Ris In - 09/12/2020 3:24 PM CDTVentricular Rate 80 BPMAtrial Rate 71 BPMP-R Interval 218 msQRS Duration 176 msQ-T Interval 464 msQTC Calculation(Bazett) 535 msP [place] 50 degreesR [place] -57 degreesT [place] 97 degreesAtrial-paced rhythm with prolonged AV conduction with Premature atrialcomplexesLeft axis deviationLeft bundle branch blockAbnormal ECGWhen compared with ECG of 06-SEP-2020 16:22,Significant changes have occurredConfirmed by Luis Gilmore ([id number]) on 09/12/2020 3:23:57 [facility] [id number] 12:47:00 Test Item Value Reference Range Interpretation Comments POC-GLUCOSE METER 131 mg/dL 70-110 H : TESTED A T [facility] 6720 (BEAKER) (test code = [facility] [place], 1538) [address]: Chocolate Temperer/Techni hilary ID = [id number] for ISAIAS VALDIVIA POCT-GLUCOSE [id number] 08:27:00 Test Item Value Reference Range Interpretation Comments POC-GLUCOSE METER 138 mg/dL 70-110 H : TESTED A T [facility] 6720 (BEAKER) (test code = [facility] [place], 1538) [address]: Chocolate Temperer/Techni hilary ID = [id number] for ISAIAS VALDIVIA CALCIUM, [id number] 07:06:00 Test Item Value Reference Range Interpretation Comments CALCIUM IONIZED (BEAKER) (test 1.07 mmol/L 1.12-1.27 L code = 698) PH, BLOOD (BEAKER) (test code = 7.29 1810) BASIC METABOLIC [id number] 06:36:00 Test Item Value Reference Range Interpretation Comments SODIUM (BEAKER) 138 meq/L 136-145 (test code = 381) POTASSIUM (BEAKER) 3.9 meq/L 3.5-5.1 (test code = 379) CHLORIDE (BEAKER) 98 meq/L 98-107 (test code = 382) CO2 (BEAKER) (test 29 meq/L 22-29 code = 355) BLOOD UREA NITROGEN 19 mg/dL 7-21 (BEAKER) (test code = 354) CREATININE (BEAKER) 0.93 mg/dL 0.57-1.25 (test code = 358) GLUCOSE RANDOM 146 mg/dL 70-105 H (BEAKER) (test code = 652) CALCIUM (BEAKER) 8.2 mg/dL 8.4-10.2 L (test code = 697) EGFR (BEAKER) (test 81 mL/min/1.73 ESTIMA SUSIE GFR IS code = 1092) sq m NOT ACCURATE CREATININE CLEARANCE IN PREDICTING GLOMERULAR FILTRATION RATE . ESTIMATED GFR I S NOT APPLICABLE FOR DIALYSIS PATIEN TS. Chocolate Temperer ID - [id number] 06:36:00 Test Item Value Reference Range Interpretation Comments MAGNESIUM (BEAKER) (test code = 1.9 mg/dL 1.6-2.6 627) Chocolate Temperer ID - EDASICBC W/PLT COUNT & AUTO [id number] 05:40:00 Test Item Value Reference Range Interpretation Comments WHITE BLOOD CELL COUNT (BEAKER) 6.5 K/ L 3.5-10.5 (test code = 775) RED BLOOD CELL COUNT (BEAKER) 2.74 M/ L 4.63-6.08 L (test code = 761) HEMOGLOBIN (BEAKER) (test code = 7.6 GM/DL 13.7-17.5 L 410) HEMATOCRIT (BEAKER) (test code = 24.5 % 40.1-51.0 L 411) MEAN CORPUSCULAR VOLUME (BEAKER) 89.4 fL 79.0-92.2 (test code = 753) MEAN CORPUSCULAR HEMOGLOBIN 27.7 pg 25.7-32.2 (BEAKER) (test code = 751) MEAN CORPUSCULAR HEMOGLOBIN CONC 31.0 GM/DL 32.3-36.5 L (BEAKER) (test code = 752) RED CELL DISTRIBUTION WIDTH 15.9 % 11.6-14.4 H (BEAKER) (test code = 412) PLATELET COUNT (BEAKER) (test 182 K/CU MM 150-450 code = 756) MEAN PLATELET VOLUME (BEAKER) 11.2 fL 9.4-12.4 (test code = 754) NUCLEATED RED BLOOD CELLS 0 /100 WBC 0-0 (BEAKER) (test code = 413) NEUTROPHILS RELATIVE PERCENT 75 % (BEAKER) (test code = 429) LYMPHOCYTES RELATIVE PERCENT 10 % (BEAKER) (test code = 430) MONOCYTES RELATIVE PERCENT 11 % (BEAKER) (test code = 431) EOSINOPHILS RELATIVE PERCENT 2 % (BEAKER) (test code = 432) BASOPHILS RELATIVE PERCENT 0 % (BEAKER) (test code = 437) NEUTROPHILS ABSOLUTE COUNT 4.88 K/ L 1.78-5.38 (BEAKER) (test code = 670) LYMPHOCYTES ABSOLUTE COUNT 0.67 K/ L 1.32-3.57 L (BEAKER) (test code = 414) MONOCYTES ABSOLUTE COUNT (BEAKER) 0.74 K/ L 0.30-0.82 (test code = 415) EOSINOPHILS ABSOLUTE COUNT 0.13 K/ L 0.04-0.54 (BEAKER) (test code = 416) BASOPHILS ABSOLUTE COUNT (BEAKER) 0.02 K/ L 0.01-0.08 (test code = 417) IMMATURE GRANULOCYTES-RELATIVE 1 % 0-1 PERCENT (BEAKER) (test code = 2801) [id number] 05:36:00 Test Item Value Reference Range Interpretation Comments PARTIAL THROMBOPLASTIN TIME 64.7 seconds 22.5-36.0 H (BEAKER) (test code = 760) While on warfarin.PROTHROMBIN [id number] 05:35:00 Test Item Value Reference Range Interpretation Comments PROTIME (BEAKER) 15.8 seconds 11.9-14.2 H (test code = 759) INR (BEAKER) (test 1.30 See_Comment [Automat ed message] code = 370) The system [employer] generated this result transmitted ref erence range: <=5.90. The reference range was not used to int erpret this result as normal/abnormal . Effective 11/01/2018: PT Reference Range ChangeNew: 11.9-14.2 Previous: 11.7- 14.7RECOMMENDED COUMADIN/WARFARIN INR THERAPY RANGESSTANDARD DOSE: 2.0-3.0 Includes: PROPHYLAXIS for venous thrombosis, systemic embolization; TREATMENT for venous thrombosis and/or pulmonary embolus.HIGH RISK: Target INR is2.5-3.5 for patients wiht mechanical heart valves.While on warfarin.POCT-GLUCOSE METER 2020-09-11 20:56:00 Test Item Value Reference Range Interpretation Comments POC-GLUCOSE METER 167 mg/dL 70-110 H : TESTED A T [facility] 6720 (Stratoscale) (test code = [facility], 1538) [address]: Chocolate Temperer/Techni hilary ID = [id number] for Re yes, Sairy POCT-GLUCOSE [id number] 17:25:00 Test Item Value Reference Range Interpretation Comments POC-GLUCOSE METER 142 mg/dL 70-110 H : TESTED A T [facility] 6720 (BEZarthCode) (test code = [facility] [employer] [employer] [facility], 1538) [address]: Chocolate Temperer/Techni hilary ID = [id number] for OR LALA HICKMAN POCT-GLUCOSE [id number] 12:44:00 Test Item Value Reference Range Interpretation Comments POC-GLUCOSE METER 195 mg/dL 70-110 H : TESTED A T [facility] 6720 (BEAKER) (test code = [facility] [place], 1538) [address]: Chocolate Temperer/Techni hilary ID = [id number] for OR LALA HICKMAN POCT-GLUCOSE [id number] 07:46:00 Test Item Value Reference Range Interpretation Comments POC-GLUCOSE METER 112 mg/dL 70-110 H : TESTED A T [facility] 6720 (BEAKER) (test code = [facility], 1538) [address]: Chocolate Temperer/Techni hilary ID = [id number] for OR LALA HICKMAN BASIC METABOLIC [id number] 06:50:00 Test Item Value Reference Range Interpretation Comments SODIUM (BEAKER) 141 meq/L 136-145 (test code = 381) POTASSIUM (BEAKER) 4.1 meq/L 3.5-5.1 (test code = 379) CHLORIDE (BEAKER) 102 meq/L 98-107 (test code = 382) CO2 (BEAKER) (test 30 meq/L 22-29 H code = 355) BLOOD UREA NITROGEN 19 mg/dL 7-21 (BEAKER) (test code = 354) CREATININE (BEAKER) 0.89 mg/dL 0.57-1.25 (test code = 358) GLUCOSE RANDOM 116 mg/dL 70-105 H (BEAKER) (test code = 652) CALCIUM (BEAKER) 8.0 mg/dL 8.4-10.2 L (test code = 697) EGFR (BEAKER) (test 85 mL/min/1.73 ESTIMA SUSIE GFR IS code = 1092) sq m NOT ACCURATE CREATININE CLEARANCE IN PREDICTING GLOMERULAR FILTRATION RATE . ESTIMATED GFR I S NOT APPLICABLE FOR DIALYSIS PATIEN TS. Chocolate Temperer ID - CECILE [id number] 06:50:00 Test Item Value Reference Range Interpretation Comments MAGNESIUM (BEAKER) (test code = 2.1 mg/dL 1.6-2.6 627) Chocolate Temperer ID - CECILE [id number] 06:48:00 Test Item Value Reference Range Interpretation Comments PARTIAL THROMBOPLASTIN TIME 68.3 seconds 22.5-36.0 H (BEAKER) (test code = 760) While on warfarin.PROTHROMBIN [id number] 06:46:00 Test Item Value Reference Range Interpretation Comments PROTIME (BEAKER) 16.4 seconds 11.9-14.2 H (test code = 759) INR (BEAKER) (test 1.36 See_Comment [Automat ed message] code = 370) The system [employer] generated this result transmitted ref erence range: <=5.90. The reference range was not used to int erpret this result as normal/abnormal . Effective 11/01/2018: PT Reference Range ChangeNew: 11.9-14.2 Previous: 11.7- 14.7RECOMMENDED COUMADIN/WARFARIN INR THERAPY RANGESSTANDARD DOSE: 2.0-3.0 Includes: PROPHYLAXIS for venous thrombosis, systemic embolization; TREATMENT for venous thrombosis and/or pulmonary embolus.HIGH RISK: Target INR is2.5-3.5 for patients wiht mechanical heart valves.While on warfarin.CBC W/PLT COUNT & AUTO [id number] 06:29:00 Test Item Value Reference Range Interpretation Comments WHITE BLOOD CELL COUNT (BEAKER) 4.0 K/ L 3.5-10.5 (test code = 775) RED BLOOD CELL COUNT (BEAKER) 2.65 M/ L 4.63-6.08 L (test code = 761) HEMOGLOBIN (BEAKER) (test code = 7.4 GM/DL 13.7-17.5 L 410) HEMATOCRIT (BEAKER) (test code = 24.0 % 40.1-51.0 L 411) MEAN CORPUSCULAR VOLUME (BEAKER) 90.6 fL 79.0-92.2 (test code = 753) MEAN CORPUSCULAR HEMOGLOBIN 27.9 pg 25.7-32.2 (BEAKER) (test code = 751) MEAN CORPUSCULAR HEMOGLOBIN CONC 30.8 GM/DL 32.3-36.5 L (BEAKER) (test code = 752) RED CELL DISTRIBUTION WIDTH 16.0 % 11.6-14.4 H (BEAKER) (test code = 412) PLATELET COUNT (BEAKER) (test 151 K/CU MM 150-450 code = 756) MEAN PLATELET VOLUME (BEAKER) 11.5 fL 9.4-12.4 (test code = 754) NUCLEATED RED BLOOD CELLS 0 /100 WBC 0-0 (BEAKER) (test code = 413) NEUTROPHILS RELATIVE PERCENT 66 % (BEAKER) (test code = 429) LYMPHOCYTES RELATIVE PERCENT 15 % (BEAKER) (test code = 430) MONOCYTES RELATIVE PERCENT 14 % (BEAKER) (test code = 431) EOSINOPHILS RELATIVE PERCENT 3 % (BEAKER) (test code = 432) BASOPHILS RELATIVE PERCENT 0 % (BEAKER) (test code = 437) NEUTROPHILS ABSOLUTE COUNT 2.63 K/ L 1.78-5.38 (BEAKER) (test code = 670) LYMPHOCYTES ABSOLUTE COUNT 0.58 K/ L 1.32-3.57 L (BEAKER) (test code = 414) MONOCYTES ABSOLUTE COUNT (BEAKER) 0.57 K/ L 0.30-0.82 (test code = 415) EOSINOPHILS ABSOLUTE COUNT 0.11 K/ L 0.04-0.54 (BEAKER) (test code = 416) BASOPHILS ABSOLUTE COUNT (BEAKER) 0.01 K/ L 0.01-0.08 (test code = 417) IMMATURE GRANULOCYTES-RELATIVE 2 % 0-1 H PERCENT (BEAKER) (test code = 2801) CALCIUM, [id number] 05:44:00 Test Item Value Reference Range Interpretation Comments CALCIUM IONIZED (BEAKER) (test 1.07 mmol/L 1.12-1.27 L code = 698) PH, BLOOD (BEAKER) (test code = 7.44 1810) POCT-GLUCOSE [id number] 21:11:00 Test Item Value Reference Range Interpretation Comments POC-GLUCOSE METER 165 mg/dL 70-110 H : TESTED A T [facility] 6720 (BEAKER) (test code = [facility], 153) [id number]: Chocolate Temperer/Techni hilary ID = [id number] for Re yes, Sairy POCT-GLUCOSE [id number] 17:25:00 Test Item Value Reference Range Interpretation Comments POC-GLUCOSE METER 125 mg/dL 70-110 H : TESTED A T [facility] 6720 (BEAKER) (test code = [facility], 1538) [address]: Chocolate Temperer/Techni hilary ID = [id number] for OR LALA HICKMAN POCT-GLUCOSE [id number] 12:00:00 Test Item Value Reference Range Interpretation Comments POC-GLUCOSE METER 161 mg/dL 70-110 H : TESTED A T [facility] 6720 (BEAKER) (test code = [facility], 1538) [address]: Chocolate Temperer/Techni hilary ID = [id number] for OR LALA HICKMAN PROTHROMBIN [id number] 09:33:00 Test Item Value Reference Range Interpretation Comments PROTIME (BEAKER) 15.0 seconds 11.9-14.2 H (test code = 759) INR (BEAKER) (test 1.23 See_Comment [Automat ed message] code = 370) The system [employer] generated this result transmitted ref erence range: <=5.90. The reference range was not used to int erpret this result as normal/abnormal . Effective 11/01/2018: PT Reference Range ChangeNew: 11.9-14.2 Previous: 11.7- 14.7RECOMMENDED COUMADIN/WARFARIN INR THERAPY RANGESSTANDARD DOSE: 2.0-3.0 Includes: PROPHYLAXIS for venous thrombosis, systemic embolization; TREATMENT for venous thrombosis and/or pulmonary embolus.HIGH RISK: Target INR is2.5-3.5 for patients wiht mechanical heart valves.Baseline INR ordered per hospital policy for new start warfarinPOCT-GLUCOSE [id number] 08:23:00 Test Item Value Reference Range Interpretation Comments POC-GLUCOSE METER 104 mg/dL 70-110 : [facility] (test code = [facility], 1538) [address]: Chocolate Temperer/Techni hilary ID = [id number] for ALEK YE [id number] 08:15:00 Test Item Value Reference Range Interpretation Comments PARTIAL THROMBOPLASTIN TIME 52.4 seconds 22.5-36.0 H (BEAKER) (test code = 760) BLOOD [id number] 07:00:00 Test Item Value Reference Range Interpretation Comments CULTURE (BEAKER) (test No growth in 5 days code = 1095) BLOOD [id number] 07:00:00 Test Item Value Reference Range Interpretation Comments CULTURE (BEAKER) (test No growth in 5 days code = 1095) CALCIUM, [id number] 06:48:00 Test Item Value Reference Range Interpretation Comments CALCIUM IONIZED (BEAKER) (test 1.09 mmol/L 1.12-1.27 L code = 698) PH, BLOOD (BEAKER) (test code = 7.32 1810) BASIC METABOLIC [id number] 06:46:00 Test Item Value Reference Range Interpretation Comments SODIUM (BEAKER) 138 meq/L 136-145 (test code = 381) POTASSIUM (BEAKER) 3.6 meq/L 3.5-5.1 (test code = 379) CHLORIDE (BEAKER) 102 meq/L 98-107 (test code = 382) CO2 (BEAKER) (test 27 meq/L 22-29 code = 355) BLOOD UREA NITROGEN 21 mg/dL 7-21 (BEAKER) (test code = 354) CREATININE (BEAKER) 0.98 mg/dL 0.57-1.25 (test code = 358) GLUCOSE RANDOM 113 mg/dL 70-105 H (BEAKER) (test code = 652) CALCIUM (BEAKER) 8.2 mg/dL 8.4-10.2 L (test code = 697) EGFR (BEAKER) (test 76 mL/min/1.73 ESTIMA SUSIE GFR IS code = 1092) sq m NOT ACCURATE CREATININE CLEARANCE IN PREDICTING GLOMERULAR FILTRATION RATE . ESTIMATED GFR I S NOT APPLICABLE FOR DIALYSIS PATIEN TS. Chocolate Temperer ID - [id number] 06:46:00 Test Item Value Reference Range Interpretation Comments MAGNESIUM (BEAKER) (test code = 1.8 mg/dL 1.6-2.6 627) Chocolate Temperer ID - BSCBC W/PLT COUNT & AUTO [id number] 06:08:00 Test Item Value Reference Range Interpretation Comments WHITE BLOOD CELL COUNT (BEAKER) 4.8 K/ L 3.5-10.5 (test code = 775) RED BLOOD CELL COUNT (BEAKER) 2.78 M/ L 4.63-6.08 L (test code = 761) HEMOGLOBIN (BEAKER) (test code = 7.8 GM/DL 13.7-17.5 L 410) HEMATOCRIT (BEAKER) (test code = 25.0 % 40.1-51.0 L 411) MEAN CORPUSCULAR VOLUME (BEAKER) 89.9 fL 79.0-92.2 (test code = 753) MEAN CORPUSCULAR HEMOGLOBIN 28.1 pg 25.7-32.2 (BEAKER) (test code = 751) MEAN CORPUSCULAR HEMOGLOBIN CONC 31.2 GM/DL 32.3-36.5 L (BEAKER) (test code = 752) RED CELL DISTRIBUTION WIDTH 16.1 % 11.6-14.4 H (BEAKER) (test code = 412) PLATELET COUNT (BEAKER) (test 130 K/CU MM 150-450 L code = 756) MEAN PLATELET VOLUME (BEAKER) 11.3 fL 9.4-12.4 (test code = 754) NUCLEATED RED BLOOD CELLS 0 /100 WBC 0-0 (BEAKER) (test code = 413) NEUTROPHILS RELATIVE PERCENT 67 % (BEAKER) (test code = 429) LYMPHOCYTES RELATIVE PERCENT 14 % (BEAKER) (test code = 430) MONOCYTES RELATIVE PERCENT 11 % (BEAKER) (test code = 431) EOSINOPHILS RELATIVE PERCENT 5 % (BEAKER) (test code = 432) BASOPHILS RELATIVE PERCENT 0 % (BEAKER) (test code = 437) NEUTROPHILS ABSOLUTE COUNT 3.20 K/ L 1.78-5.38 (BEAKER) (test code = 670) LYMPHOCYTES ABSOLUTE COUNT 0.69 K/ L 1.32-3.57 L (BEAKER) (test code = 414) MONOCYTES ABSOLUTE COUNT (BEAKER) 0.54 K/ L 0.30-0.82 (test code = 415) EOSINOPHILS ABSOLUTE COUNT 0.23 K/ L 0.04-0.54 (BEAKER) (test code = 416) BASOPHILS ABSOLUTE COUNT (BEAKER) 0.01 K/ L 0.01-0.08 (test code = 417) IMMATURE GRANULOCYTES-RELATIVE 3 % 0-1 H PERCENT (BEAKER) (test code = 2801) POCT-GLUCOSE [id number] 21:35:00 Test Item Value Reference Range Interpretation Comments POC-GLUCOSE METER 129 mg/dL 70-110 H : TESTED A T [facility] 6720 (BEAKER) (test code = [facility], 1538) [id number]: Chocolate Temperer/Techni hilary ID = [id number] for FI BJ ALINA POCT-GLUCOSE [id number] 16:20:00 Test Item Value Reference Range Interpretation Comments POC-GLUCOSE METER 162 mg/dL 70-110 H : TESTED A T [facility] 6720 (BEAKER) (test code = [facility], 1538) 22721: Chocolate Temperer/Techni hilary ID = [id number] for EDWIN ZUNIGA POCT-GLUCOSE [id number] 11:50:00 Test Item Value Reference Range Interpretation Comments POC-GLUCOSE METER 107 mg/dL 70-110 : TESTED A T [facility] 6720 (BEAKER) (test code = [facility], 1538) 09782: Chocolate Temperer/Techni hilary ID = [id number] for EDWIN ZUNIGA POCT-GLUCOSE [id number] 07:47:00 Test Item Value Reference Range Interpretation Comments POC-GLUCOSE METER 131 mg/dL 70-110 H : TESTED A T [facility] 6720 (BEAKER) (test code = [facility], 1538) 51148: Chocolate Temperer/Techni hilary ID = [id number] for ANDREA YING CALCIUM, [id number] 05:17:00 Test Item Value Reference Range Interpretation Comments CALCIUM IONIZED (BEAKER) (test 1.11 mmol/L 1.12-1.27 L code = 698) PH, BLOOD (BEAKER) (test code = 7.31 1810) [id number] 05:16:00 Test Item Value Reference Range Interpretation Comments MAGNESIUM (BEAKER) 2.1 mg/dL 1.6-2.6 Specimen slightly (test code = 627) hemolyzed Chocolate Temperer ID - EDASIBASIC METABOLIC [id number] 05:16:00 Test Item Value Reference Range Interpretation Comments SODIUM (BEAKER) 140 meq/L 136-145 (test code = 381) POTASSIUM (BEAKER) 4.2 meq/L 3.5-5.1 Specimen slightly (test code = 379) hemolyzed CHLORIDE (BEAKER) 104 meq/L 98-107 (test code = 382) CO2 (BEAKER) (test 26 meq/L 22-29 code = 355) BLOOD UREA NITROGEN 25 mg/dL 7-21 H (BEAKER) (test code = 354) CREATININE (BEAKER) 1.00 mg/dL 0.57-1.25 Specimen slightly (test code = 358) hemolyzed GLUCOSE RANDOM 131 mg/dL 70-105 H (BEAKER) (test code = 652) CALCIUM (BEAKER) 8.1 mg/dL 8.4-10.2 L (test code = 697) EGFR (BEAKER) (test 74 mL/min/1.73 ESTIMA SUSIE GFR IS code = 1092) sq m NOT ACCURATE CREATININE CLEARANCE IN PREDICTING GLOMERULAR FILTRATION RATE . ESTIMATED GFR I S NOT APPLICABLE FOR DIALYSIS PATIEN Chocolate Temperer ID - [id number] 04:43:00 Test Item Value Reference Range Interpretation Comments PARTIAL THROMBOPLASTIN TIME 42.4 seconds 22.5-36.0 H (BEAKER) (test code = 760) CBC W/PLT COUNT & AUTO [id number] 04:38:00 Test Item Value Reference Range Interpretation Comments WHITE BLOOD CELL COUNT (BEAKER) 4.6 K/ L 3.5-10.5 (test code = 775) RED BLOOD CELL COUNT (BEAKER) 2.69 M/ L 4.63-6.08 L (test code = 761) HEMOGLOBIN (BEAKER) (test code = 7.7 GM/DL 13.7-17.5 L 410) HEMATOCRIT (BEAKER) (test code = 24.0 % 40.1-51.0 L 411) MEAN CORPUSCULAR VOLUME (BEAKER) 89.2 fL 79.0-92.2 (test code = 753) MEAN CORPUSCULAR HEMOGLOBIN 28.6 pg 25.7-32.2 (BEAKER) (test code = 751) MEAN CORPUSCULAR HEMOGLOBIN CONC 32.1 GM/DL 32.3-36.5 L (BEAKER) (test code = 752) RED CELL DISTRIBUTION WIDTH 16.1 % 11.6-14.4 H (BEAKER) (test code = 412) PLATELET COUNT (BEAKER) (test 105 K/CU MM 150-450 L code = 756) MEAN PLATELET VOLUME (BEAKER) 12.0 fL 9.4-12.4 (test code = 754) NUCLEATED RED BLOOD CELLS 0 /100 WBC 0-0 (BEAKER) (test code = 413) NEUTROPHILS RELATIVE PERCENT 70 % (BEAKER) (test code = 429) LYMPHOCYTES RELATIVE PERCENT 12 % (BEAKER) (test code = 430) MONOCYTES RELATIVE PERCENT 11 % (BEAKER) (test code = 431) EOSINOPHILS RELATIVE PERCENT 5 % (BEAKER) (test code = 432) BASOPHILS RELATIVE PERCENT 0 % (BEAKER) (test code = 437) NEUTROPHILS ABSOLUTE COUNT 3.24 K/ L 1.78-5.38 (BEAKER) (test code = 670) LYMPHOCYTES ABSOLUTE COUNT 0.56 K/ L 1.32-3.57 L (BEAKER) (test code = 414) MONOCYTES ABSOLUTE COUNT (BEAKER) 0.52 K/ L 0.30-0.82 (test code = 415) EOSINOPHILS ABSOLUTE COUNT 0.25 K/ L 0.04-0.54 (BEAKER) (test code = 416) BASOPHILS ABSOLUTE COUNT (BEAKER) 0.01 K/ L 0.01-0.08 (test code = 417) IMMATURE GRANULOCYTES-RELATIVE 1 % 0-1 PERCENT (BEAKER) (test code = 2801) SARS-COV2/RT-PCR ([facility])2020-09-09 03:05:00 Test Item Value Reference Range Interpretation Comments SARS-COV2/RT-PCR (test Negative Not Detected, Negative, code = 3618214) See external report for linked test SARS-COV-2 PERFORMING LAB [facility] (test code = 7169745) Negative result for this test determines that SARS-CoV-2 RNA was not present in the specimen above the Limit of Detection (LOD). However, Negative results do not preclude SARS-CoV-2 infection and should not be used as the sole basis for treatment or patient management decisions. Negative results mustbe combined with clinical observations, patient history, and epidemiological information. A false negative result may occur if a specimen is improperly collected, transported or handled. A false negative result should be considered if patient's recent exposures or clinical presentation indicate that COVID-19 (SARS-CoV-2) is likely and diagnostic tests for other causes of illness are negative. Re-testing should be considered in cases of suspected false negatives.The limit of detection for this assay is 100 copies/mL.This SARS CoV-2 test is a real-time RT-PCR test intended for the qualitative detection of nucleic acid from SARS-CoV-2 in a nasopharyngeal swab specimen collected from individuals susp ected of COVID-19 by their healthcare provider.This test has not been Food and Drug Administration (FDA) cleared or approved. This is a modified version of an approved Emergency Use Authorization (EUA) and is in the process of review by the FDA. Once authorized by the FDA, the issued EUA will be effective until the declaration that circumstances exist justifying the authorization of the emergency use of in vitro diagnostic tests for detection and/or diagnosis of COVID-19 is terminated under Section 564(b)(2) of the Act or the EUA is revoked under Section 564(g) of the Act.Testing was performed using the Peraza SARS-CoV-2 assay.Fact Sheet for Healthcare Providers:https://www.Equivalent DATA.peraza/nakita/ OT_KAAB-GuI-1_YDQ_Pcfe_Aaxdg_62-197306.pdfFact Sheet for Healthcare Patients:https://www.Equivalent DATA.NeuroSigma rowena/nakita/QT_MYUE-ElL-2_Yyclmsc_Nqlb_Odolw_FV_17-499431H3.pdfPerforming Laboratory:[address] [address] POCT-GLUCOSE [id number] 21:28:00 Test Item Value Reference Range Interpretation Comments POC-GLUCOSE METER 151 mg/dL 70-110 H : TESTED A T [facility] 6720 (BEAKER) (test code = [facility], 1538) 586[address]: Chocolate Temperer/Techni hilary ID = [id number] for JORGE HOLLAND POCT-GLUCOSE [id number] 16:38:00 Test Item Value Reference Range Interpretation Comments POC-GLUCOSE METER 143 mg/dL 70-110 H : [facility] (test code = [facility], 1538) 00512: Chocolate Temperer/Techni hilary ID = [id number] for BUD PruittSydney AVILA-ORDWAY Tissue [id number] 14:07:00 Test Item Value Reference Range Interpretation Comments Case Report (test code Surgical Pathology = 104) Report Case: [id number] Authorizing Provider: Dave Gatica, Collected: 09/01/2020 01:55 PM Ordering Location: [facility] CV Recovery Room 2 Received: 09/01/2020 03:12 PM Pathologist: Cecil Lincoln MD Specimen: Mitral Valve, MITRAL VALVE LEAFLET DIAGNOSIS (test code = [id number] 3220) FuZzEwMzNcZnRuYmpcdWMx IHtccnRmMVxlcGljOTIwMl frglPwXWHblJOgZ7Vzjeau LFkwHX0iJZ7jzUsdzHCazF PzIWZkSvWwk0rrd114cOUm a8vzVVUMaegajXo8bIlvB9 0sx1X3WykzZ26adXAhBRih bGFpblxmczIwIEhFQVJULC BNSVRSQUwgVkFMVkUsIFZB UAWHEELRWG6HCVignOMgEU dKOQQEBPUKGQqTXPrqPL6U CKEREDMtT6TTF5aEOQAaVY KVHJNGB8CBUCPMFZrRFWJO MUAGAF4QZotmuJAtuGvtgw FaNHbpy5RdXFkyGKTqHG4l nBgqWISjVQ1zZXDoV2dzgD 6qltr3OyUiGQKiBcW3WYGh ulQ4Cry4KKWzNHgyy8iir9 HzVQCaYQz1wZrsMzNtEPBy y6jwhqYfKePtKDYfEKQcLW YieHAhF307h1gjj4ryypPo yHY8EWSzSMC0CHudgjKqds G0NEomiJTiJaC3ALuypkLe DMnkdxWqvwHuHje7HOGwH1 76CLP6uBjqy3mkIFF7SEAy MTDjMcDgTx9fuCIfO478AT MlVDZMKDYpiEh3SVEhqlAl kzImnDXSl600Y448v1ouAG YenjCbmVwCorbvj9kiP130 XHBhcGVydzEyMjQwXHBhcG CteQA8FQNpLM5vxufeTHee HIvzCJTkxqU4NZEhjSKoN4 ZdSWKhZY4vjzqiION3IPnh QRQhSDN7ZsVjPPOlk1Zoml o9VpKegu0ini47WEE2g7Oh nHrtPWX5KMC7TwIvNp8nmA SrTLKeLY8lRgYebHNgPGYi fu89eAlfAOecYFC2RGTytz Dhf7Hcg8umVmJpraVrM5sj X8SkPLDvCNAgAFEyOuYjwm Xsh4Qgl1EzySDgtSl4u8dz XMMpYCAasEgvx6szUNF9SR KjqNOzN1hqjI7nSLNwBP5z eurjo0axHKhvSZveNWZovQ F3qlU3SISqlJCjX3JpgM8v HNNnCMpwKYDvlph6BkGiPf 9vdGVyeTcyMFxzYmtwYWdl XHBnbmNvbnRccGduZGVjXH BsYWluXHBsYWluXGYwXGZz MjRccWxcbGFuZzEwMzNcaG ljaFxmMVxkYmNoXGYxXGxv M6ozIvPqOhOwGxa0MKNydE OeHOGgEax2XCHyfPUjCWRG uQdezA2iMHDblSlofU4sxJ J9BBSvyvFjpHCNpR4bUMVA bP6nCrO8CxGcYwY5NNl9ND FccGFyfX0= CPT Code(s) (test code k4yovLLlEINnpJA8LyWdVS = 3357) Rwy1teq3EeyYRhhXHfIZkv aEUqzdKeyv28pOY8pA95TY 8nUVLvYlQ5GWFsicG5Rty8 ZIEtKOKlgXYrY625t1rra8 umutVsxJH9gLhxFJMzXAAo KTieUMTbTsYqWHuiSHH9LI j9IlGrXLNnnt8= CLINICAL HISTORY (test s4qirPTzSWUpiAS2IcMlDX code = 3356) Wna9ljh3IegMLzsOEgSUnw xKSpjaBvjk09jAP5jP06FD 2iCKIoYgK6VVNvniW9Vpk0 YBMyEIUelELaB664b2exf0 hijhRhuIO3mGuxVXNgHSQw TYcxRVNbWuOpQm6pBCQdNX VtYXRpYyBtaXRyYWwgdmFs dmUgcmVndXJnaXRhdGlvbi 5ccGFyfQ== SPECIMEN SOURCE (test m8kmdKPiTGIibIP3HwObGU code = 3377) Vcx4fat2OqbAIprMHnPCrz bPArqiKblm28tSY3xO42YI 6sTDZaYvK9KLKbatY7Ymb6 LJDtZGTksPNoK343v0nnr8 slstPzzIB0fBtoIOEoAHKd VRdjXUZfNjXhUJa4udSfXP ZhbHZlIFxwYXJ9 GROSS DESCRIPTION (test e2zghYRvDMElzKL6YkEeTW code = 3366) Uwm4jqk7LvpTTaeAChNWov cLZfrcUves11sAV2eM06PL 5uVVRsBsU7CHWfxlQ2Dvm6 KGDyJJChmROwH364q7azs4 zhvoGwdID7iAnvLQLvXUIt MZuwRUAdEjJuHM5mPwUjBG p1QRIfXbFzy7cesUZdNNcv XNC3iCNqRJKxDUVyGQYkEM 06F7GnfmXzGYdrJRSzCZPc tK4lKV16eNGlscCiaoBsOt 2zlJRhbKH1LBq2HQiroAb9 cmFsIHZhbHZlIGxlYWZsZX BiSYCmULVugZl9jDZwXWCy U8UgIFOuodU9aNKwZKFhSV Mjgj92pGl0SGcyqSPnQYt6 yQUkXOT6YFz8pLbxptEbyg LjnELjuOQyoQEnk4NvvZ1h KPTyOlU7DRHbQmK3EFMhVH UlmMIgbpCtM2coZMsllFQ5 TRAlWHAud8TfdHM7FIJkD6 jvK7OjUiHwXB8zYFAwjtNo rKQqk7LkYstjSPToGSNeA0 EytVQwubHoxIGnfB6dfSwl MJQhPPtkDX51YGRymaY6oA BnKN2sPEZcEOWftKZcjD1s xp2kELplBTS0cMSivYVcJS SpCSOwp5GcSVlaXTPsuYLy tD49ERFntQJdMdtaBZGtTH Lwh7x5GlHMjuRyXU1is1Yp ZRUof67yZM1fNUTpM3D9WJ Dtx08yJICnVINeKRGxqBkq aWVkLiBSZXByZXNlbnRhdG k8BNWyFWM0kT9odkBslqEa f5CqgJn7fVSwIMafBNGgVO NgkAnkc5etGuFmBOLoaBPe EzakFCUkj66vXPlOL0T6PS Bhcn0= MICROSCOPIC DESCRIPTION i4hybNIbVFJcbQP5VsFcFA (test code = 3371) Wma9lwg0WfvUFrbEUzJAqv zSBsnxFeix32hON8tV23TP 4vEBGqReG6GMCcpjW9Kll0 GRTmOFKomZOlB046z5spx5 xhacXzrKS0gImfQMWpIJYu GDowMJAfZvBdHZSyIb4jeH VkXHBhcn0= [facility] [id number] 14:07:00Surgical Pathology Report Case: [id number] Authorizing Provider: Dave Gatica, Collected: 09/01/2020 01:55 PM OrderingLocation: [facility] CV Recovery Room 2 Received: 09/01/2020 03:12 PM Pathologist: Cecil Lincoln MD Specimen: Mitral Valve, MITRAL VALVE LEAFLET HEART, MITRAL VALVE, VALVULECTOMY:LEAFLETS WITH MODERATE CALCIFIC ATHEROSCLEROTIC THICKENING Signing Pathologist Direct Phone Line: [phone] signed by Cecil Lincoln MD on 09/08/2020 at 2:07 [id number]; [id number]-lttuggiyh mitral valve regurgitation.Mitral valve A. Received fresh labeled with the patient's name, accession number and "mitral valve, mitral valve leaflet" are multiple (greater than 5)white-white, irregular, valvular fragments measuring 5.3 x 2.6 x 1.5 cm in aggregate; the estimated cir cumference is impossible to ascertain due to the fragmented nature of the specimen. The cut surface displays a yellow calcified deposit. No fenestrations or vegetations are identified. Hand Plate Stacker sections are submitted in A1 following decalcification. JG/ewPerformedRAD, CHEST, 1 VIEW, NON [id number] 12:37:00Reason for exam:->pulm edema. recent minimally invasive MVRShould this be performed at the bedside?->Yes [facility] 1950 Sex: MFINAL REPORT RAD, CHEST, 1 VIEW, NON DEPT INDICATION: pulm edema. recent minimally invasive MVR COMPARISON: Prior day's exam FINDINGS: Portable frontal view of [facility]. IMPRESSION: Support Lines: Right-sided central catheter tip overlies the SVC. Cardiac support hardware is unchanged. Lungs and pleura: Small bilateral effusions and fluid layering within the right minor fissure unchanged No pneumothorax.Heart and mediastinum: Stable contours.Additional findings: None. Signed: Jacqueline Jacobo Verified Date/Time: 09/08/2020 12:37:52 Reading Location: [facility] Radiology Reading Room Electronically signed by: JACQUELINE JACOBO MD on 10/2020 12:37 PMPOCT-GLUCOSE [id number] 11:18:00 Test Item Value Reference Range Interpretation Comments POC-GLUCOSE METER 128 mg/dL 70-110 H : TESTED A T [facility] 1005 (BEAKER) (test code = I[facility] [place], 1538) [id number]: Chocolate Temperer/Techni hilary ID = [id number] for Nataly ALEXIS [id number] 08:10:00 Test Item Value Reference Range Interpretation Comments PARTIAL THROMBOPLASTIN TIME 45.3 seconds 22.5-36.0 H (BEAKER) (test code = 760) POCT-GLUCOSE [id number] 07:25:00 Test Item Value Reference Range Interpretation Comments POC-GLUCOSE METER 163 mg/dL 70-110 H : TESTED A T [facility] 6720 (BEAKER) (test code = [facility], 1538) [id number]: Chocolate Temperer/Techni hilary ID = [id number] for ANDREA YING BASIC METABOLIC [id number] 04:37:00 Test Item Value Reference Range Interpretation Comments SODIUM (BEAKER) 138 meq/L 136-145 (test code = 381) POTASSIUM (BEAKER) 4.0 meq/L 3.5-5.1 (test code = 379) CHLORIDE (BEAKER) 104 meq/L 98-107 (test code = 382) CO2 (BEAKER) (test 24 meq/L 22-29 code = 355) BLOOD UREA NITROGEN 32 mg/dL 7-21 H (BEAKER) (test code = 354) CREATININE (BEAKER) 1.05 mg/dL 0.57-1.25 (test code = 358) GLUCOSE RANDOM 136 mg/dL 70-105 H (BEAKER) (test code = 652) CALCIUM (BEAKER) 8.0 mg/dL 8.4-10.2 L (test code = 697) EGFR (BEAKER) (test 70 mL/min/1.73 ESTIMA SUSIE GFR IS code = 1092) sq m NOT ACCURATE CREATININE CLEARANCE IN PREDICTING GLOMERULAR FILTRATION RATE . ESTIMATED GFR I S NOT APPLICABLE FOR DIALYSIS PATIEN TS. Chocolate Temperer ID - VIVIANE [id number] 04:37:00 Test Item Value Reference Range Interpretation Comments MAGNESIUM (BEAKER) (test code = 2.0 mg/dL 1.6-2.6 627) Chocolate Temperer ID - VIVIANE LCBC W/PLT COUNT & AUTO [id number] 04:10:00 Test Item Value Reference Range Interpretation Comments WHITE BLOOD CELL COUNT (BEAKER) 5.6 K/ L 3.5-10.5 (test code = 775) RED BLOOD CELL COUNT (BEAKER) 2.78 M/ L 4.63-6.08 L (test code = 761) HEMOGLOBIN (BEAKER) (test code = 7.9 GM/DL 13.7-17.5 L 410) HEMATOCRIT (BEAKER) (test code = 25.2 % 40.1-51.0 L 411) MEAN CORPUSCULAR VOLUME (BEAKER) 90.6 fL 79.0-92.2 (test code = 753) MEAN CORPUSCULAR HEMOGLOBIN 28.4 pg 25.7-32.2 (BEAKER) (test code = 751) MEAN CORPUSCULAR HEMOGLOBIN CONC 31.3 GM/DL 32.3-36.5 L (BEAKER) (test code = 752) RED CELL DISTRIBUTION WIDTH 15.9 % 11.6-14.4 H (BEAKER) (test code = 412) PLATELET COUNT (BEAKER) (test 111 K/CU MM 150-450 L code = 756) MEAN PLATELET VOLUME (BEAKER) 11.2 fL 9.4-12.4 (test code = 754) NUCLEATED RED BLOOD CELLS 0 /100 WBC 0-0 (BEAKER) (test code = 413) NEUTROPHILS RELATIVE PERCENT 72 % (BEAKER) (test code = 429) LYMPHOCYTES RELATIVE PERCENT 10 % (BEAKER) (test code = 430) MONOCYTES RELATIVE PERCENT 13 % (BEAKER) (test code = 431) EOSINOPHILS RELATIVE PERCENT 5 % (BEAKER) (test code = 432) BASOPHILS RELATIVE PERCENT 0 % (BEAKER) (test code = 437) NEUTROPHILS ABSOLUTE COUNT 4.03 K/ L 1.78-5.38 (BEAKER) (test code = 670) LYMPHOCYTES ABSOLUTE COUNT 0.54 K/ L 1.32-3.57 L (BEAKER) (test code = 414) MONOCYTES ABSOLUTE COUNT (BEAKER) 0.73 K/ L 0.30-0.82 (test code = 415) EOSINOPHILS ABSOLUTE COUNT 0.26 K/ L 0.04-0.54 (BEAKER) (test code = 416) BASOPHILS ABSOLUTE COUNT (BEAKER) 0.01 K/ L 0.01-0.08 (test code = 417) IMMATURE GRANULOCYTES-RELATIVE 1 % 0-1 PERCENT (BEAKER) (test code = 2801) CALCIUM, [id number] 04:08:00 Test Item Value Reference Range Interpretation Comments CALCIUM IONIZED (BEAKER) (test 1.10 mmol/L 1.12-1.27 L code = 698) PH, BLOOD (BEAKER) (test code = 7.37 1810) VANCOMYCIN LEVEL, [id number] 02:08:00 Test Item Value Reference Range Interpretation Comments VANCOMYCIN TROUGH (BEAKER) (test 20.7 ug/mL 10.0-20.0 H code = 522) Chocolate Temperer ID - [id number] 02:06:00 Test Item Value Reference Range Interpretation Comments PARTIAL THROMBOPLASTIN TIME 40.9 seconds 22.5-36.0 H (BEAKER) (test code = 760) [id number] 18:37:00 Test Item Value Reference Range Interpretation Comments MAGNESIUM (BEAKER) 2.1 mg/dL 1.6-2.6 Specimen moderately (test code = 627) hemolyzed Chocolate Temperer ID - EDASICheck Serum Potassium level 2 hours after oral potassium replacement completed or30 min after intravenous potassium replacement.POTASSIUM 2020-09-07 18:37:00 Test Item Value Reference Range Interpretation Comments POTASSIUM (BEAKER) 4.6 meq/L 3.5-5.1 Specimen moderately (test code = 379) hemolyzed Chocolate Temperer ID - EDASICheck Serum Potassium level 2 hours after oral potassium replacement completed or30 min after intravenous potassium replacement.APTT 2020-09-07 18:00:00 Test Item Value Reference Range Interpretation Comments PARTIAL THROMBOPLASTIN TIME 35.3 seconds 22.5-36.0 (BEAKER) (test code = 760) POCT-GLUCOSE [id number] 16:38:00 Test Item Value Reference Range Interpretation Comments POC-GLUCOSE METER 152 mg/dL 70-110 H : TESTED A T [facility] 6720 (Stratoscale) (test code = [facility] [place], 1538) [id number]: Chocolate Temperer/Techni hilary ID = [id number] for YADI Hassan KOREY POCT-GLUCOSE [id number] 11:40:00 Test Item Value Reference Range Interpretation Comments POC-GLUCOSE METER 178 mg/dL 70-110 H : TESTED A T [facility] 6720 (Stratoscale) (test code = [facility], 1538) 39243: Chocolate Temperer/Techni hilary ID = [id number] for KOREY WHATLEY [id number] 09:59:00 Test Item Value Reference Range Interpretation Comments PARTIAL THROMBOPLASTIN TIME 34.6 seconds 22.5-36.0 (BEAKER) (test code = 760) Prior to initiating heparinPOCT-GLUCOSE [id number] 07:56:00 Test Item Value Reference Range Interpretation Comments POC-GLUCOSE METER 169 mg/dL 70-110 H : TESTED A T [facility] 6720 (BEAKER) (test code = [facility], 1538) [id number]: Chocolate Temperer/Techni hilary ID = [id number] for KOREY WHATLEY CBC W/PLT COUNT & AUTO [id number] 04:14:00 Test Item Value Reference Range Interpretation Comments WHITE BLOOD CELL COUNT (BEAKER) 4.5 K/ L 3.5-10.5 (test code = 775) RED BLOOD CELL COUNT (BEAKER) 2.78 M/ L 4.63-6.08 L (test code = 761) HEMOGLOBIN (BEAKER) (test code = 7.9 GM/DL 13.7-17.5 L 410) HEMATOCRIT (BEAKER) (test code = 24.7 % 40.1-51.0 L 411) MEAN CORPUSCULAR VOLUME (BEAKER) 88.8 fL 79.0-92.2 (test code = 753) MEAN CORPUSCULAR HEMOGLOBIN 28.4 pg 25.7-32.2 (BEAKER) (test code = 751) MEAN CORPUSCULAR HEMOGLOBIN CONC 32.0 GM/DL 32.3-36.5 L (BEAKER) (test code = 752) RED CELL DISTRIBUTION WIDTH 15.7 % 11.6-14.4 H (BEAKER) (test code = 412) PLATELET COUNT (BEAKER) (test 108 K/CU MM 150-450 L code = 756) MEAN PLATELET VOLUME (BEAKER) 11.0 fL 9.4-12.4 (test code = 754) NUCLEATED RED BLOOD CELLS 0 /100 WBC 0-0 (BEAKER) (test code = 413) NEUTROPHILS RELATIVE PERCENT 89 % (BEAKER) (test code = 429) LYMPHOCYTES RELATIVE PERCENT 4 % (BEAKER) (test code = 430) MONOCYTES RELATIVE PERCENT 6 % (BEAKER) (test code = 431) EOSINOPHILS RELATIVE PERCENT 0 % (BEAKER) (test code = 432) BASOPHILS RELATIVE PERCENT 0 % (BEAKER) (test code = 437) NEUTROPHILS ABSOLUTE COUNT 4.02 K/ L 1.78-5.38 (BEAKER) (test code = 670) LYMPHOCYTES ABSOLUTE COUNT 0.20 K/ L 1.32-3.57 L (BEAKER) (test code = 414) MONOCYTES ABSOLUTE COUNT (BEAKER) 0.26 K/ L 0.30-0.82 L (test code = 415) EOSINOPHILS ABSOLUTE COUNT 0.00 K/ L 0.04-0.54 L (BEAKER) (test code = 416) BASOPHILS ABSOLUTE COUNT (BEAKER) 0.00 K/ L 0.01-0.08 L (test code = 417) IMMATURE GRANULOCYTES-RELATIVE 0 % 0-1 PERCENT (BEAKER) (test code = 2801) CALCIUM, [id number] 03:58:00 Test Item Value Reference Range Interpretation Comments CALCIUM IONIZED (BEAKER) (test 1.08 mmol/L 1.12-1.27 L code = 698) PH, BLOOD (BEAKER) (test code = 7.37 1810) [id number] 03:56:00 Test Item Value Reference Range Interpretation Comments MAGNESIUM (BEAKER) 2.3 mg/dL 1.6-2.6 Specimen slightly (test code = 627) hemolyzed Chocolate Temperer ID - EDASIBASIC METABOLIC [id number] 03:56:00 Test Item Value Reference Range Interpretation Comments SODIUM (BEAKER) 137 meq/L 136-145 (test code = 381) POTASSIUM (BEAKER) 4.9 meq/L 3.5-5.1 Specimen slightly (test code = 379) hemolyzed CHLORIDE (BEAKER) 104 meq/L 98-107 (test code = 382) CO2 (BEAKER) (test 22 meq/L 22-29 code = 355) BLOOD UREA NITROGEN 33 mg/dL 7-21 H (BEAKER) (test code = 354) CREATININE (BEAKER) 1.13 mg/dL 0.57-1.25 Specimen slightly (test code = 358) hemolyzed GLUCOSE RANDOM 205 mg/dL 70-105 H (BEAKER) (test code = 652) CALCIUM (BEAKER) 8.2 mg/dL 8.4-10.2 L (test code = 697) EGFR (BEAKER) (test 64 mL/min/1.73 ESTIMA SUSIE GFR IS code = 1092) sq m NOT ACCURATE CREATININE CLEARANCE IN PREDICTING GLOMERULAR FILTRATION RATE . ESTIMATED GFR I S NOT APPLICABLE FOR DIALYSIS PATIEN TS. Chocolate Temperer ID - EDASIPOCT-GLUCOSE [id number] 23:04:00 Test Item Value Reference Range Interpretation Comments POC-GLUCOSE METER 166 mg/dL 70-110 H : TESTED A T [facility] 6720 (BEAKER) (test code = IDR[place], 1538) 119[address]: Chocolate Temperer/Techni hilary ID = [id number] for Sharif flannery (contract), Jeannette a [id number] 17:48:00 Test Item Value Reference Range Interpretation Comments MAGNESIUM (BEAKER) 2.3 mg/dL 1.6-2.6 Specimen slightly (test code = 627) hemolyzed Chocolate Temperer ID - [id number] 17:48:00 Test Item Value Reference Range Interpretation Comments PHOSPHORUS (BEAKER) 3.0 mg/dL 2.3-4.7 Specimen slightly (test code = 604) hemolyzed Chocolate Temperer ID - DBBASIC METABOLIC [id number] 17:48:00 Test Item Value Reference Range Interpretation Comments SODIUM (BEAKER) 137 meq/L 136-145 (test code = 381) POTASSIUM (BEAKER) 4.7 meq/L 3.5-5.1 Specimen slightly (test code = 379) hemolyzed CHLORIDE (BEAKER) 105 meq/L 98-107 (test code = 382) CO2 (BEAKER) (test 21 meq/L 22-29 L code = 355) BLOOD UREA NITROGEN 30 mg/dL 7-21 H (BEAKER) (test code = 354) CREATININE (BEAKER) 1.04 mg/dL 0.57-1.25 Specimen slightly (test code = 358) hemolyzed GLUCOSE RANDOM 215 mg/dL 70-105 H (BEAKER) (test code = 652) CALCIUM (BEAKER) 8.4 mg/dL 8.4-10.2 (test code = 697) EGFR (BEAKER) (test 71 mL/min/1.73 ESTIMA SUSIE GFR IS code = 1092) sq m NOT ACCURATE CREATININE CLEARANCE IN PREDICTING GLOMERULAR FILTRATION RATE . ESTIMATED GFR I S NOT APPLICABLE FOR DIALYSIS PATIEN TS. Chocolate Temperer ID - DBCALCIUM, [id number] 17:44:00 Test Item Value Reference Range Interpretation Comments CALCIUM IONIZED (BEAKER) (test 1.07 mmol/L 1.12-1.27 L code = 698) PH, BLOOD (BEAKER) (test code = 7.45 1810) POCT-GLUCOSE [id number] 16:47:00 Test Item Value Reference Range Interpretation Comments POC-GLUCOSE METER 189 mg/dL 70-110 H : TESTED A T [facility] 6720 (BEAKER) (test code = [facility] [employer] [facility], 1538) [address]: Chocolate Temperer/Techni hilary ID = [id number] for KOREY WHATLEY VANCOMYCIN LEVEL, [id number] 12:59:00 Test Item Value Reference Range Interpretation Comments VANCOMYCIN TROUGH (BEAKER) (test 15.2 ug/mL 10.0-20.0 code = 522) Chocolate Temperer ID - EDASIPOCT-GLUCOSE [id number] 12:22:00 Test Item Value Reference Range Interpretation Comments POC-GLUCOSE METER 188 mg/dL 70-110 H : TESTED A T [facility] 6720 (BEAKER) (test code = [place], 1538) [address]: Chocolate Temperer/Techni hilary ID = [id number] for KOREY WHATLEY BASIC METABOLIC [id number] 09:59:00 Test Item Value Reference Range Interpretation Comments SODIUM (BEAKER) 135 meq/L 136-145 L (test code = 381) POTASSIUM (BEAKER) 4.5 meq/L 3.5-5.1 (test code = 379) CHLORIDE (BEAKER) 103 meq/L 98-107 (test code = 382) CO2 (BEAKER) (test 22 meq/L 22-29 code = 355) BLOOD UREA NITROGEN 24 mg/dL 7-21 H (BEAKER) (test code = 354) CREATININE (BEAKER) 0.90 mg/dL 0.57-1.25 (test code = 358) GLUCOSE RANDOM 182 mg/dL 70-105 H (BEAKER) (test code = 652) CALCIUM (BEAKER) 8.2 mg/dL 8.4-10.2 L (test code = 697) EGFR (MALIK) (test 84 mL/min/1.73 ESTIMA SUSIE GFR IS code = 1092) sq m NOT ACCURATE CREATININE CLEARANCE IN PREDICTING GLOMERULAR FILTRATION RATE . ESTIMATED GFR I S NOT APPLICABLE FOR DIALYSIS PATIEN TS. Chocolate Temperer ID - DBEvery 8 hours PRN for Creatinine greater than or equal to 2 mg/dL.[id number] 09:59:00 Test Item Value Reference Range Interpretation Comments PHOSPHORUS (MALIK) (test code = 4.4 mg/dL 2.3-4.7 604) Chocolate Temperer ID - DBEvery 8 hours PRN for Creatinine greater than or equal to 2 mg/dL.POCT-GLUCOSE [id number] 08:19:00 Test Item Value Reference Range Interpretation Comments POC-GLUCOSE METER 173 mg/dL 70-110 H : TESTED A T [facility] 6720 (MALIK) (test code = [facility] [place], 1538) [address]: Chocolate Temperer/Techni hilary ID = [id number] for KOREY WHATLEY RAD, CHEST, 1 VIEW, NON [id number] 08:04:00Reason for exam:->s/p cv [facility] : 1950 Sex: MFINAL REPORT RAD, CHEST, 1 VIEW, NON DEPT INDICATION: s/p cv surgery COMPARISON: Prior day's exam FINDINGS: Portable frontal view of the chest. IMPRESSION: Support Lines: Stable. Lungs and pleura: Unchanged airspace and pleural opacities. No pneumothorax.Heart and mediastinum: Stable contours. Stable surgical changes.Additional findings: None. Signed: Jacqueline Jacoboort Verified Date/Time: 09/06/2020 08:04:53 Reading Location: [facility] C013V Neuro Reading Room CALCIUM, [id number] 06:22:00 Test Item Value Reference Range Interpretation Comments CALCIUM IONIZED (BEAKER) (test 1.09 mmol/L 1.12-1.27 L code = 698) PH, BLOOD (BEAKER) (test code = 7.31 1810) [id number] 05:10:00 Test Item Value Reference Range Interpretation Comments MAGNESIUM (BEAKER) (test code = 2.3 mg/dL 1.6-2.6 627) Chocolate Temperer ID - EDASIEvery 8 hours PRN for Creatinine greater than or equal to 2 mg/dL.[id number] 05:10:00 Test Item Value Reference Range Interpretation Comments POTASSIUM (BEAKER) (test code = 4.6 meq/L 3.5-5.1 379) Chocolate Temperer ID - EDASIEvery 8 hours PRN for Creatinine greater than or equal to 2 mg/dL.CBC W/PLT COUNT & AUTO [id number] 04:51:00 Test Item Value Reference Range Interpretation Comments WHITE BLOOD CELL COUNT (BEAKER) 3.2 K/ L 3.5-10.5 L (test code = 775) RED BLOOD CELL COUNT (BEAKER) 2.75 M/ L 4.63-6.08 L (test code = 761) HEMOGLOBIN (BEAKER) (test code = 7.9 GM/DL 13.7-17.5 L 410) HEMATOCRIT (BEAKER) (test code = 24.4 % 40.1-51.0 L 411) MEAN CORPUSCULAR VOLUME (BEAKER) 88.7 fL 79.0-92.2 (test code = 753) MEAN CORPUSCULAR HEMOGLOBIN 28.7 pg 25.7-32.2 (BEAKER) (test code = 751) MEAN CORPUSCULAR HEMOGLOBIN CONC 32.4 GM/DL 32.3-36.5 (BEAKER) (test code = 752) RED CELL DISTRIBUTION WIDTH 15.4 % 11.6-14.4 H (BEAKER) (test code = 412) PLATELET COUNT (BEAKER) (test code 86 K/CU MM 150-450 L = 756) MEAN PLATELET VOLUME (BEAKER) 11.1 fL 9.4-12.4 (test code = 754) NUCLEATED RED BLOOD CELLS (BEAKER) 1 /100 WBC 0-0 H (test code = 413) NEUTROPHILS RELATIVE PERCENT 86 % (BEAKER) (test code = 429) LYMPHOCYTES RELATIVE PERCENT 8 % (BEAKER) (test code = 430) MONOCYTES RELATIVE PERCENT 6 % (BEAKER) (test code = 431) EOSINOPHILS RELATIVE PERCENT 0 % (BEAKER) (test code = 432) BASOPHILS RELATIVE PERCENT 0 % (BEAKER) (test code = 437) NEUTROPHILS ABSOLUTE COUNT 2.71 K/ L 1.78-5.38 (BEAKER) (test code = 670) LYMPHOCYTES ABSOLUTE COUNT 0.25 K/ L 1.32-3.57 L (BEAKER) (test code = 414) MONOCYTES ABSOLUTE COUNT (BEAKER) 0.20 K/ L 0.30-0.82 L (test code = 415) EOSINOPHILS ABSOLUTE COUNT 0.00 K/ L 0.04-0.54 L (BEAKER) (test code = 416) BASOPHILS ABSOLUTE COUNT (BEAKER) 0.00 K/ L 0.01-0.08 L (test code = 417) IMMATURE GRANULOCYTES-RELATIVE 0 % 0-1 PERCENT (BEAKER) (test code = 2801) POCT-GLUCOSE [id number] 21:56:00 Test Item Value Reference Range Interpretation Comments POC-GLUCOSE METER 158 mg/dL 70-110 H : TESTED A T [facility] 6720 (BEAKER) (test code = [facility], 153) [address]: Chocolate Temperer/Techni hilary ID = [id number] for DO AUNDREATAVO JORGE POCT-GLUCOSE [id number] 18:19:00 Test Item Value Reference Range Interpretation Comments POC-GLUCOSE METER 239 mg/dL 70-110 H : TESTED A T [facility] 6720 (BEAKER) (test code = [facility], 153) [address]: Chocolate Temperer/Techni hilary ID = [id number] for YADI Hassan KOREY BLOOD GAS, [id number] 18:18:00 Test Item Value Reference Range Interpretation Comments PH ARTERIAL (BEAKER) (test code = 7.41 7.35-7.45 383) PCO2 ARTERIAL (BEAKER) (test code 38 mm Hg 35-45 = 384) PO2 ARTERIAL (BEAKER) (test code 206 mm Hg 80-90 H = 385) O2 SATURATION ARTERIAL (BEAKER) 99.4 % 96.0-97.0 H (test code = 386) HCO3 ARTERIAL (BEAKER) (test code 24 mmol/L 21-29 = 388) BASE EXCESS ARTERIAL (BEAKER) -1.0 mmol/L -2.0-3.0 (test code = 387) PATIENT TEMPERATURE (BEAKER) 37.0 (test code = 1818) FIO2 (BEAKER) (test code = 1819) 30.0 BASIC METABOLIC [id number] 17:38:00 Test Item Value Reference Range Interpretation Comments SODIUM (BEAKER) 133 meq/L 136-145 L (test code = 381) POTASSIUM (BEAKER) 5.1 meq/L 3.5-5.1 (test code = 379) CHLORIDE (BEAKER) 102 meq/L 98-107 (test code = 382) CO2 (BEAKER) (test 22 meq/L 22-29 code = 355) BLOOD UREA NITROGEN 21 mg/dL 7-21 (BEAKER) (test code = 354) CREATININE (BEAKER) 0.92 mg/dL 0.57-1.25 (test code = 358) GLUCOSE RANDOM 259 mg/dL 70-105 H (BEAKER) (test code = 652) CALCIUM (BEAKER) 7.8 mg/dL 8.4-10.2 L (test code = 697) EGFR (BEAKER) (test 82 mL/min/1.73 ESTIMA SUSIE GFR IS code = 1092) sq m NOT ACCURATE CREATININE CLEARANCE IN PREDICTING GLOMERULAR FILTRATION RATE . ESTIMATED GFR I S NOT APPLICABLE FOR DIALYSIS PATIEN TS. Chocolate Temperer ID - [id number] 17:30:00 Test Item Value Reference Range Interpretation Comments MAGNESIUM (BEAKER) (test code = 2.1 mg/dL 1.6-2.6 627) Chocolate Temperer ID - [id number] 17:30:00 Test Item Value Reference Range Interpretation Comments PHOSPHORUS (BEAKER) (test code = 3.0 mg/dL 2.3-4.7 604) Chocolate Temperer ID - [id number] 17:02:00 Test Item Value Reference Range Interpretation Comments POTASSIUM (BEAKER) (test code = 5.1 meq/L 3.5-5.1 379) Chocolate Temperer ID - DBTransfusion Reaction [id number] 15:58:00 Test Item Value Reference Interpretation Comments Range TRANSFUSION RX SEE COMMENT Transfusion a ssociated INVESTIGATION(BE dyspnea - n o sign of RBC LORY) (test code incompatibi lityElectronic = 2259) Signature: Lanny Mcneil M.D. [facility] METABOLIC [id number] 08:47:00 Test Item Value Reference Range Interpretation Comments SODIUM (BEAKER) 137 meq/L 136-145 (test code = 381) POTASSIUM (BEAKER) 5.2 meq/L 3.5-5.1 H (test code = 379) CHLORIDE (BEAKER) 105 meq/L 98-107 (test code = 382) CO2 (BEAKER) (test 26 meq/L 22-29 code = 355) BLOOD UREA NITROGEN 19 mg/dL 7-21 (BEAKER) (test code = 354) CREATININE (BEAKER) 0.80 mg/dL 0.57-1.25 (test code = 358) GLUCOSE RANDOM 190 mg/dL 70-105 H (BEAKER) (test code = 652) CALCIUM (BEAKER) 8.1 mg/dL 8.4-10.2 L (test code = 697) EGFR (BEAKER) (test 96 mL/min/1.73 ESTIMA SUSIE GFR IS code = 1092) sq m NOT ACCURATE CREATININE CLEARANCE IN PREDICTING GLOMERULAR FILTRATION RATE . ESTIMATED GFR I S NOT APPLICABLE FOR DIALYSIS PATIEN TS. Chocolate Temperer ID - [id number] 08:47:00 Test Item Value Reference Range Interpretation Comments MAGNESIUM (BEAKER) (test code = 2.1 mg/dL 1.6-2.6 627) Chocolate Temperer ID - [id number] 08:47:00 Test Item Value Reference Range Interpretation Comments PHOSPHORUS (BEAKER) (test code = 2.6 mg/dL 2.3-4.7 604) Chocolate Temperer ID - EDASICBC W/PLT COUNT & AUTO [id number] 08:27:00 Test Item Value Reference Range Interpretation Comments WHITE BLOOD CELL COUNT (BEAKER) 3.8 K/ L 3.5-10.5 (test code = 775) RED BLOOD CELL COUNT (BEAKER) 2.82 M/ L 4.63-6.08 L (test code = 761) HEMOGLOBIN (BEAKER) (test code = 8.2 GM/DL 13.7-17.5 L 410) HEMATOCRIT (BEAKER) (test code = 25.4 % 40.1-51.0 L 411) MEAN CORPUSCULAR VOLUME (BEAKER) 90.1 fL 79.0-92.2 (test code = 753) MEAN CORPUSCULAR HEMOGLOBIN 29.1 pg 25.7-32.2 (BEAKER) (test code = 751) MEAN CORPUSCULAR HEMOGLOBIN CONC 32.3 GM/DL 32.3-36.5 (BEAKER) (test code = 752) RED CELL DISTRIBUTION WIDTH 15.3 % 11.6-14.4 H (BEAKER) (test code = 412) PLATELET COUNT (BEAKER) (test code 68 K/CU MM 150-450 L = 756) MEAN PLATELET VOLUME (BEAKER) 11.2 fL 9.4-12.4 (test code = 754) NUCLEATED RED BLOOD CELLS (BEAKER) 0 /100 WBC 0-0 (test code = 413) NEUTROPHILS RELATIVE PERCENT 87 % (BEAKER) (test code = 429) LYMPHOCYTES RELATIVE PERCENT 6 % (BEAKER) (test code = 430) MONOCYTES RELATIVE PERCENT 5 % (BEAKER) (test code = 431) EOSINOPHILS RELATIVE PERCENT 1 % (BEAKER) (test code = 432) BASOPHILS RELATIVE PERCENT 0 % (BEAKER) (test code = 437) NEUTROPHILS ABSOLUTE COUNT 3.29 K/ L 1.78-5.38 (BEAKER) (test code = 670) LYMPHOCYTES ABSOLUTE COUNT 0.22 K/ L 1.32-3.57 L (BEAKER) (test code = 414) MONOCYTES ABSOLUTE COUNT (BEAKER) 0.20 K/ L 0.30-0.82 L (test code = 415) EOSINOPHILS ABSOLUTE COUNT 0.03 K/ L 0.04-0.54 L (BEAKER) (test code = 416) BASOPHILS ABSOLUTE COUNT (BEAKER) 0.01 K/ L 0.01-0.08 (test code = 417) IMMATURE GRANULOCYTES-RELATIVE 1 % 0-1 PERCENT (BEAKER) (test code = 2801) BLOOD GAS, [id number] 08:08:00 Test Item Value Reference Range Interpretation Comments PH ARTERIAL (BEAKER) (test code = 7.45 7.35-7.45 383) PCO2 ARTERIAL (BEAKER) (test code 36 mm Hg 35-45 = 384) PO2 ARTERIAL (BEAKER) (test code = 168 mm Hg 80-90 H 385) O2 SATURATION ARTERIAL (BEAKER) 99.2 % 96.0-97.0 H (test code = 386) HCO3 ARTERIAL (BEAKER) (test code 25 mmol/L 21-29 = 388) BASE EXCESS ARTERIAL (BEAKER) 0.6 mmol/L -2.0-3.0 (test code = 387) PATIENT TEMPERATURE (BEAKER) (test 36.5 code = 1818) FIO2 (BEAKER) (test code = 1819) 35.0 POCT-GLUCOSE [id number] 07:30:00 Test Item Value Reference Range Interpretation Comments POC-GLUCOSE METER 174 mg/dL 70-110 H : TESTED A T [facility] 6720 (BEAKER) (test code = [facility], 1538) [address]: Chocolate Temperer/Techni hilary ID = [id number] for YADI Hassan KOREY [id number] 06:03:00 Test Item Value Reference Range Interpretation Comments PARTIAL THROMBOPLASTIN TIME 43.1 seconds 22.5-36.0 H (BEAKER) (test code = 760) BLOOD GAS, [id number] 05:34:00 Test Item Value Reference Range Interpretation Comments PH ARTERIAL (BEAKER) (test code = 7.40 7.35-7.45 383) PCO2 ARTERIAL (BEAKER) (test code 40 mm Hg 35-45 = 384) PO2 ARTERIAL (BEAKER) (test code 206 mm Hg 80-90 H = 385) O2 SATURATION ARTERIAL (BEAKER) 99.4 % 96.0-97.0 H (test code = 386) HCO3 ARTERIAL (BEAKER) (test code 24 mmol/L 21-29 = 388) BASE EXCESS ARTERIAL (BEAKER) -0.7 mmol/L -2.0-3.0 (test code = 387) PATIENT TEMPERATURE (BEAKER) 35.7 (test code = 1818) FIO2 (BEAKER) (test code = 1819) 50.0 LACTIC ACID, [id number] 04:42:00 Test Item Value Reference Range Interpretation Comments LACTATE BLOOD ARTERIAL (2) 1.1 mmol/L 0.5-2.2 (BEAKER) (test code = 2874) Chocolate Temperer ID - DBRAD, CHEST, 1 VIEW, NON [id number] 01:51:00Reason for exam:- >respiratory insufficiencyShould this be performed at the bedside?->Yes [facility] 1950 Sex: MFINAL REPORT RAD, CHEST, 1 VIEW, NON DEPT INDICATION: respiratory insufficiency COMPARISON: Prior day's exam FINDINGS: Portable frontal view of the chest. IMPRESSION: Support Lines: Interval removal the previously seen right-sided chest tubes. Otherwise unchanged support apparatus. Lungs and pleura: Unchanged airspace and pleural opacities. No pneumothorax.Heart and mediastinum: Stable contours. Stable surgical changes.Additional findings: None. Signed: Tegan Johns Verified Date/Time: 09/05/2020 01:51:05 D GAS, [id number] 01:34:00 Test Item Value Reference Range Interpretation Comments PH ARTERIAL (BEAKER) (test code = 7.32 7.35-7.45 L 383) PCO2 ARTERIAL (BEAKER) (test code 44 mm Hg 35-45 = 384) PO2 ARTERIAL (BEAKER) (test code 122 mm Hg 80-90 H = 385) O2 SATURATION ARTERIAL (BEAKER) 98.2 % 96.0-97.0 H (test code = 386) HCO3 ARTERIAL (BEAKER) (test code 22 mmol/L 21-29 = 388) BASE EXCESS ARTERIAL (BEAKER) -3.7 mmol/L -2.0-3.0 L (test code = 387) PATIENT TEMPERATURE (BEAKER) 36.5 (test code = 1818) FIO2 (BEAKER) (test code = 1819) 60.0 Potassium-Stat [id number] 01:33:00 Test Item Value Reference Range Interpretation Comments Potassium (test code = 2823-3) 5.0 meq/L 3.6-5.5 Lab Interpretation (test code = Normal 44277-2) [facility] [id number] 01:33:00 Test Item Value Reference Range Interpretation Comments POTASSIUM (BEAKER) (test code = 5.0 meq/L 3.6-5.5 379) BASIC METABOLIC [id number] 01:06:00 Test Item Value Reference Range Interpretation Comments SODIUM (BEAKER) 136 meq/L 136-145 (test code = 381) POTASSIUM (BEAKER) 5.5 meq/L 3.5-5.1 H (test code = 379) CHLORIDE (BEAKER) 105 meq/L 98-107 (test code = 382) CO2 (BEAKER) (test 20 meq/L 22-29 L code = 355) BLOOD UREA NITROGEN 18 mg/dL 7-21 (BEAKER) (test code = 354) CREATININE (BEAKER) 0.83 mg/dL 0.57-1.25 (test code = 358) GLUCOSE RANDOM 193 mg/dL 70-105 H (BEAKER) (test code = 652) CALCIUM (BEAKER) 8.7 mg/dL 8.4-10.2 (test code = 697) EGFR (BEAKER) (test 92 mL/min/1.73 ESTIMA SUSIE GFR IS code = 1092) sq m NOT ACCURATE CREATININE CLEARANCE IN PREDICTING GLOMERULAR FILTRATION RATE . ESTIMATED GFR I S NOT APPLICABLE FOR DIALYSIS PATIEN TS. Chocolate Temperer ID - DBBLOOD GAS, [id number] 01:06:00 Test Item Value Reference Range Interpretation Comments PH ARTERIAL (BEAKER) (test code = 7.24 7.35-7.45 L 383) PCO2 ARTERIAL (BEAKER) (test code 54 mm Hg 35-45 H = 384) PO2 ARTERIAL (BEAKER) (test code 104 mm Hg 80-90 H = 385) O2 SATURATION ARTERIAL (BEAKER) 96.8 % 96.0-97.0 (test code = 386) HCO3 ARTERIAL (BEAKER) (test code 23 mmol/L 21-29 = 388) BASE EXCESS ARTERIAL (BEAKER) -4.9 mmol/L -2.0-3.0 L (test code = 387) PATIENT TEMPERATURE (BEAKER) 37.0 (test code = 1818) FIO2 (BEAKER) (test code = 1819) 44.0 CALCIUM, [id number] 01:05:00 Test Item Value Reference Range Interpretation Comments CALCIUM IONIZED (BEAKER) (test 1.16 mmol/L 1.12-1.27 code = 698) PH, BLOOD (BEAKER) (test code = 7.24 1810) CBC W/PLT COUNT & AUTO [id number] 00:53:00 Test Item Value Reference Range Interpretation Comments WHITE BLOOD CELL COUNT (BEAKER) 9.8 K/ L 3.5-10.5 (test code = 775) RED BLOOD CELL COUNT (BEAKER) 3.39 M/ L 4.63-6.08 L (test code = 761) HEMOGLOBIN (BEAKER) (test code = 9.9 GM/DL 13.7-17.5 L 410) HEMATOCRIT (BEAKER) (test code = 31.0 % 40.1-51.0 L 411) MEAN CORPUSCULAR VOLUME (BEAKER) 91.4 fL 79.0-92.2 (test code = 753) MEAN CORPUSCULAR HEMOGLOBIN 29.2 pg 25.7-32.2 (BEAKER) (test code = 751) MEAN CORPUSCULAR HEMOGLOBIN CONC 31.9 GM/DL 32.3-36.5 L (BEAKER) (test code = 752) RED CELL DISTRIBUTION WIDTH 15.5 % 11.6-14.4 H (BEAKER) (test code = 412) PLATELET COUNT (BEAKER) (test code 92 K/CU MM 150-450 L = 756) MEAN PLATELET VOLUME (BEAKER) 11.2 fL 9.4-12.4 (test code = 754) NUCLEATED RED BLOOD CELLS (BEAKER) 0 /100 WBC 0-0 (test code = 413) NEUTROPHILS RELATIVE PERCENT 65 % (BEAKER) (test code = 429) LYMPHOCYTES RELATIVE PERCENT 18 % (BEAKER) (test code = 430) MONOCYTES RELATIVE PERCENT 12 % (BEAKER) (test code = 431) EOSINOPHILS RELATIVE PERCENT 4 % (BEAKER) (test code = 432) BASOPHILS RELATIVE PERCENT 0 % (BEAKER) (test code = 437) NEUTROPHILS ABSOLUTE COUNT 6.37 K/ L 1.78-5.38 H (BEAKER) (test code = 670) LYMPHOCYTES ABSOLUTE COUNT 1.78 K/ L 1.32-3.57 (BEAKER) (test code = 414) MONOCYTES ABSOLUTE COUNT (BEAKER) 1.12 K/ L 0.30-0.82 H (test code = 415) EOSINOPHILS ABSOLUTE COUNT 0.43 K/ L 0.04-0.54 (BEAKER) (test code = 416) BASOPHILS ABSOLUTE COUNT (BEAKER) 0.04 K/ L 0.01-0.08 (test code = 417) IMMATURE GRANULOCYTES-RELATIVE 0 % 0-1 PERCENT (BEAKER) (test code = 2801) [id number] 22:56:00 Test Item Value Reference Range Interpretation Comments PARTIAL THROMBOPLASTIN TIME 37.6 seconds 22.5-36.0 H (BEAKER) (test code = 760) POCT-GLUCOSE [id number] 22:15:00 Test Item Value Reference Range Interpretation Comments POC-GLUCOSE METER 162 mg/dL 70-110 H : TESTED A T [facility] 6720 (BEAKER) (test code = [facility] [place], 1538) [address]: Chocolate Temperer/Techni hilary ID = [id number] for DO September BASIC METABOLIC [id number] 21:11:00 Test Item Value Reference Range Interpretation Comments SODIUM (BEAKER) 138 meq/L 136-145 (test code = 381) POTASSIUM (BEAKER) 4.0 meq/L 3.5-5.1 (test code = 379) CHLORIDE (BEAKER) 104 meq/L 98-107 (test code = 382) CO2 (BEAKER) (test 25 meq/L 22-29 code = 355) BLOOD UREA NITROGEN 20 mg/dL 7-21 (BEAKER) (test code = 354) CREATININE (BEAKER) 0.83 mg/dL 0.57-1.25 (test code = 358) GLUCOSE RANDOM 151 mg/dL 70-105 H (BEAKER) (test code = 652) CALCIUM (BEAKER) 8.0 mg/dL 8.4-10.2 L (test code = 697) EGFR (BEAKER) (test 92 mL/min/1.73 ESTIMA SUSIE GFR IS code = 1092) sq m NOT ACCURATE CREATININE CLEARANCE IN PREDICTING GLOMERULAR FILTRATION RATE . ESTIMATED GFR I S NOT APPLICABLE FOR DIALYSIS PATIEN TS. Chocolate Temperer ID - [id number] 21:11:00 Test Item Value Reference Range Interpretation Comments MAGNESIUM (BEAKER) (test code = 1.9 mg/dL 1.6-2.6 627) Chocolate Temperer ID - DBCBC W/PLT COUNT & AUTO [id number] 20:53:00 Test Item Value Reference Range Interpretation Comments WHITE BLOOD CELL COUNT (BEAKER) 4.8 K/ L 3.5-10.5 (test code = 775) RED BLOOD CELL COUNT (BEAKER) 2.80 M/ L 4.63-6.08 L (test code = 761) HEMOGLOBIN (BEAKER) (test code = 7.9 GM/DL 13.7-17.5 L 410) HEMATOCRIT (BEAKER) (test code = 24.9 % 40.1-51.0 L 411) MEAN CORPUSCULAR VOLUME (BEAKER) 88.9 fL 79.0-92.2 (test code = 753) MEAN CORPUSCULAR HEMOGLOBIN 28.2 pg 25.7-32.2 (BEAKER) (test code = 751) MEAN CORPUSCULAR HEMOGLOBIN CONC 31.7 GM/DL 32.3-36.5 L (BEAKER) (test code = 752) RED CELL DISTRIBUTION WIDTH 15.2 % 11.6-14.4 H (BEAKER) (test code = 412) PLATELET COUNT (BEAKER) (test code 73 K/CU MM 150-450 L = 756) MEAN PLATELET VOLUME (BEAKER) 11.4 fL 9.4-12.4 (test code = 754) NUCLEATED RED BLOOD CELLS (BEAKER) 0 /100 WBC 0-0 (test code = 413) NEUTROPHILS RELATIVE PERCENT 69 % (BEAKER) (test code = 429) LYMPHOCYTES RELATIVE PERCENT 15 % (BEAKER) (test code = 430) MONOCYTES RELATIVE PERCENT 10 % (BEAKER) (test code = 431) EOSINOPHILS RELATIVE PERCENT 6 % (BEAKER) (test code = 432) BASOPHILS RELATIVE PERCENT 0 % (BEAKER) (test code = 437) NEUTROPHILS ABSOLUTE COUNT 3.29 K/ L 1.78-5.38 (BEAKER) (test code = 670) LYMPHOCYTES ABSOLUTE COUNT 0.70 K/ L 1.32-3.57 L (BEAKER) (test code = 414) MONOCYTES ABSOLUTE COUNT (BEAKER) 0.48 K/ L 0.30-0.82 (test code = 415) EOSINOPHILS ABSOLUTE COUNT 0.26 K/ L 0.04-0.54 (BEAKER) (test code = 416) BASOPHILS ABSOLUTE COUNT (BEAKER) 0.02 K/ L 0.01-0.08 (test code = 417) IMMATURE GRANULOCYTES-RELATIVE 0 % 0-1 PERCENT (BEAKER) (test code = 2801) BLOOD GAS, [id number] 20:48:00 Test Item Value Reference Range Interpretation Comments PH ARTERIAL (BEAKER) (test code = 7.46 7.35-7.45 H 383) PCO2 ARTERIAL (BEAKER) (test code 36 mm Hg 35-45 = 384) PO2 ARTERIAL (BEAKER) (test code = 159 mm Hg 80-90 H 385) O2 SATURATION ARTERIAL (BEAKER) 99.2 % 96.0-97.0 H (test code = 386) HCO3 ARTERIAL (BEAKER) (test code 25 mmol/L 21-29 = 388) BASE EXCESS ARTERIAL (BEAKER) 1.1 mmol/L -2.0-3.0 (test code = 387) PATIENT TEMPERATURE (BEAKER) (test 36.3 code = 1818) FIO2 (BEAKER) (test code = 1819) 40.0 CALCIUM, [id number] 20:48:00 Test Item Value Reference Range Interpretation Comments CALCIUM IONIZED (BEAKER) (test 1.06 mmol/L 1.12-1.27 L code = 698) PH, BLOOD (BEAKER) (test code = 7.44 1810) [id number] 15:25:00 Test Item Value Reference Range Interpretation Comments POTASSIUM (BEAKER) (test code = 3.4 meq/L 3.5-5.1 L 379) Chocolate Temperer ID - [id number] (Hemogram only)2020-09-04 15:16:00 Test Item Value Reference Range Interpretation Comments WBC (test code = 6690-2) 4.7 See_Comment [A utomated message] The system [employer] generated this result transmitted ref erence range: 3.5 - 10 .5 K/L. The refe rence range was not u sed to interpret this result as normal/abnor mal. RBC (test code = 789-8) 2.56 See_Comment L [Au tomated message] The system [employer] generated this result transmitted ref erence range: 4.63 - 6 .08 M/L. The refe rence range was not u sed to interpret this result as normal/abnor mal. MCHC (test code = 786-4) 31.3 See_Comment L [A utomated message] The system [employer] generated this result transmitted ref erence range: 32.3 - 3 6.5 GM/DL. The refe rence range was not u sed to interpret this result as normal/abnor mal. Hematocrit (test code = 23.3 % 40.1-51 L 4544-3) MCV (test code = 787-2) 91.0 fL 79-92.2 MCH (test code = 785-6) 28.5 pg 25.7-32.2 RDW (test code = 788-0) 15.1 % 11.6-14.4 H Platelets (test code = 68 See_Comment L [Aut omated message] 777-3) The system [employer] generated this result transmitted ref erence range: 150 - 45 0 K/CU MM. The referen ce range was not u sed to interpret this result as normal/abnor mal. MPV (test code = 11.0 fL 9.4-12.4 55813-5) nRBC (test code = 413) 0 See_Comment [Aut omated message] The system [employer] generated this result transmitted ref erence range: 0 - 0 /1 00 WBC. The refere nce range was not u sed to interpret this result as normal/abnor mal. Lab Interpretation (test Abnormal code = 31236-6) [facility] 15:16:00 Test Item Value Reference Range Interpretation Comments WHITE BLOOD CELL COUNT (BEAKER) 4.7 K/ L 3.5-10.5 (test code = 775) RED BLOOD CELL COUNT (BEAKER) 2.56 M/ L 4.63-6.08 L (test code = 761) HEMOGLOBIN (BEAKER) (test code = 7.3 GM/DL 13.7-17.5 L 410) HEMATOCRIT (BEAKER) (test code = 23.3 % 40.1-51.0 L 411) MEAN CORPUSCULAR VOLUME (BEAKER) 91.0 fL 79.0-92.2 (test code = 753) MEAN CORPUSCULAR HEMOGLOBIN 28.5 pg 25.7-32.2 (BEAKER) (test code = 751) MEAN CORPUSCULAR HEMOGLOBIN CONC 31.3 GM/DL 32.3-36.5 L (BEAKER) (test code = 752) RED CELL DISTRIBUTION WIDTH 15.1 % 11.6-14.4 H (BEAKER) (test code = 412) PLATELET COUNT (BEAKER) (test code 68 K/CU MM 150-450 L = 756) MEAN PLATELET VOLUME (BEAKER) 11.0 fL 9.4-12.4 (test code = 754) NUCLEATED RED BLOOD CELLS (BEAKER) 0 /100 WBC 0-0 (test code = 413) POCT-GLUCOSE [id number] 11:29:00 Test Item Value Reference Range Interpretation Comments POC-GLUCOSE METER 148 mg/dL 70-110 H : TESTED A T [facility] 6720 (BEAKER) (test code = IDRIS ARRIAZA [place], 1538) [address]: Chocolate Temperer/Techni hilary ID = [id number] for ANDREA YING CBC (HEMOGRAM ONLY)2020-09-04 09:13:00 Test Item Value Reference Range Interpretation Comments WHITE BLOOD CELL COUNT (BEAKER) 5.4 K/ L 3.5-10.5 (test code = 775) RED BLOOD CELL COUNT (BEAKER) 2.52 M/ L 4.63-6.08 L (test code = 761) HEMOGLOBIN (BEAKER) (test code = 7.1 GM/DL 13.7-17.5 L 410) HEMATOCRIT (BEAKER) (test code = 22.6 % 40.1-51.0 L 411) MEAN CORPUSCULAR VOLUME (BEAKER) 89.7 fL 79.0-92.2 (test code = 753) MEAN CORPUSCULAR HEMOGLOBIN 28.2 pg 25.7-32.2 (BEAKER) (test code = 751) MEAN CORPUSCULAR HEMOGLOBIN CONC 31.4 GM/DL 32.3-36.5 L (BEAKER) (test code = 752) RED CELL DISTRIBUTION WIDTH 15.6 % 11.6-14.4 H (BEAKER) (test code = 412) PLATELET COUNT (BEAKER) (test code 58 K/CU MM 150-450 L = 756) MEAN PLATELET VOLUME (BEAKER) 10.9 fL 9.4-12.4 (test code = 754) NUCLEATED RED BLOOD CELLS (BEAKER) 0 /100 WBC 0-0 (test code = 413) 2D Echo W/Doppler(CW/PW/Color)2020-09-04 07:59:17Ejection FractionSLEH ECHO HEARTLAB MKCKESSON CPACSInterface, External Ris In - 09/04/2020 7:59 AM C DTTransthoracic Echocardiography Report (TTE) Demographics Patient Name ARIELLA PARKER Date of Study 09/03/2020 APRIL Gender Male Visit Number [id number] Race Room Number C827 Number Date of 1950 Referring Flaco Galo [facility] Physician Age 70 year(s) 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 Amount - 2 mlHeight: 72 inches Weight: 92.99 kg (205 lbs) BSA: 2.15 m^2 BMI: 27.8 kg/m^2HR: 87 bpm BP: 99/69mmHg Summary Apical views are suboptimal . The left ventricle is chamber size (by vol index) is mildly enlarged (male - LVED 75-89ml/m2). Mild concentric LV hypertrophy. All of the LV segments are hyperkinetic . Septal motion is abnormal, likely related to conduction abnormality . LVEF by Fry's method of disk assessment is normal (>60%) . Degree of diastolic dysfunction (LAP assessment) is inconclusive due to MVR. The prosthetic AoV appears well-seated with normal function by Doppler. DOI = 0.38. Mean AVR gradient = 20mmHg. A bioprosthetic ( Pratik 29mm) MV prosthesis is visualized with normal function by Doppler . Mean MVR gradient = 6.77 mmHg. Prosthetic MV regurgitation is not appreciated on this study. Estimated peak systolic PA pressure is cannot be determined due to inadequate TRvelocity signal . A small posterior pericardial effusion is suggested. Signature Findings Rhythm/BP Regular sinus rhythm during the exam. Left Ventricle LV endocardium is adequately visualized with IV ultrasound enhancing agent. Apical views are suboptimal . The left ventricle is chamber size (by vol index) is mildly enlarged (male - LVED 75-89ml/m2). Mild concentric LV hypertrophy. All of the LV segments are hyperkinetic . Septal motion is abnormal, likely related to conduction abnormality . LVEF by Fry's method of disk assessment is normal (>60%) . Degree of diastolic dysfunction (LAP assessment) is inconclusive due to MVR. Septal motion is abnormal, likely related to prior cardiac surgery . Left Atrium LA is incompletely visualized, size based on linear measurement. LA size is enlarged Right Ventricle The right ventricular chamber size and systolic function are within normal limits. Right Atrium RA size is probably normal based on available views. Atrial Septum Normal interatrial septum by available views. IV saline contrast injection Aortic Valve A biologic AoV prosthesis is visualized . The prosthetic AoV appears well-seatedwith normal function by Doppler. DOI = 0.38. Mean AVR gradient = 20mmHg. Prosthetic AoV regurgitaton is not demonstrated . Mitral Va lve A bioprosthetic ( Pratik 29mm) MV prosthesis is visualized withnormal function by Doppler . Mean MVR gradient = 6.77 mmHg. Prosthetic MV regurgitation is not appreciated on this study. Tricuspid Valve TV structure is normal. Mild tricuspid regurgitation. Estimated peak systolic PA pressure is cannot be determined due to inadequate TR velocity signal . Pulmonic Valve Normal PV structure. Fqpg-hg-qmrdeezg pulmonary regurgitation. Aorta Aortic root size (SInus of Valsalva diameter) is normal . 19mmHg gradient noted along proximal descending aorta. Pericardium A small posterior pericardial effusion is suggested. IVC/SVC/PA/PV/Pleural The estimated RA pressure by IVC dynamics 5-10mmHg . Chambers/Structures Left Ventricle LVIDd: 5.51 cm LVEDV:148.15 ml LV Septum Diastolic: 1.3 cm LV PW Diastolic: 1.3 cm LVEDV Fry's:172.08 ml LVESV Fry's:46.96 ml LVEF Fry's: 72.7 % LVEDVI: 80 ml/m^2 LVESVI: 22 ml/m^2 LVOT Diameter: 1.81 cm Doppler/Quantitative Measurements Mitral Valve Peak Velocity: 2.16 m/s Mean Velocity: 1.21 m/s Mean Gradient: 6.77 mmHg Area (continuity): 0.91 cm^2 MV VTI: 53.87 cm MV Gaurav. Peak: 1.92 m/s Aortic Valve Peak Velocity: 3.09 m/s Mean Velocity: 2.04 m/s Peak Gradient: 38.28 mmHg Mean Gradient: 20.32 mmHg AV Area (continuity): 0.97 cm^2 AV VTI: 50.77 cm AV DVI: 0.38 LVOT Peak Velocity: 1.04 m/s Peak Gradient: 4.29 mmHg Mean Velocity: 0.74 m/s Mean Gradient: 2.44 mmHg LVOT Diameter: 1.81 cm LVOT VTI: 19.12 cm LVOT Area: 2.57 cm^2 LVOT SV:49.17 ml LVOT CO: 4.28 l/min LVOT CI: 1.99 l/min/m^2 Tricuspid Valve TR Velocity: 1.58 m/s TR Gradient: 9.99 mmHgHuntington Beach Hospital and Medical CenterPOCT-GLUCOSE METER 2020-09-04 07:35:00 Test Item Value Reference Range Interpretation Comments POC-GLUCOSE METER 130 mg/dL 70-110 H : TESTED A T [facility] 6720 (BEAKER) (test code = IDRIS Galan [place], 1538) [id number]: Chocolate Temperer/Techni hilary ID = [id number] for ANDREA YING CBC (HEMOGRAM ONLY)2020-09-04 06:17:00 Test Item Value Reference Range Interpretation Comments WHITE BLOOD CELL COUNT (BEAKER) 5.2 K/ L 3.5-10.5 (test code = 775) RED BLOOD CELL COUNT (BEAKER) 2.38 M/ L 4.63-6.08 L (test code = 761) HEMOGLOBIN (BEAKER) (test code = 6.6 GM/DL 13.7-17.5 L 410) HEMATOCRIT (BEAKER) (test code = 21.1 % 40.1-51.0 L 411) MEAN CORPUSCULAR VOLUME (BEAKER) 88.7 fL 79.0-92.2 (test code = 753) MEAN CORPUSCULAR HEMOGLOBIN 27.7 pg 25.7-32.2 (BEAKER) (test code = 751) MEAN CORPUSCULAR HEMOGLOBIN CONC 31.3 GM/DL 32.3-36.5 L (BEAKER) (test code = 752) RED CELL DISTRIBUTION WIDTH 15.8 % 11.6-14.4 H (BEAKER) (test code = 412) PLATELET COUNT (BEAKER) (test code 63 K/CU MM 150-450 L = 756) MEAN PLATELET VOLUME (BEAKER) 11.4 fL 9.4-12.4 (test code = 754) NUCLEATED RED BLOOD CELLS (BEAKER) 0 /100 WBC 0-0 (test code = 413) BASIC METABOLIC [id number] 05:39:00 Test Item Value Reference Range Interpretation Comments SODIUM (BEAKER) 138 meq/L 136-145 (test code = 381) POTASSIUM (BEAKER) 3.7 meq/L 3.5-5.1 (test code = 379) CHLORIDE (BEAKER) 104 meq/L 98-107 (test code = 382) CO2 (BEAKER) (test 26 meq/L 22-29 code = 355) BLOOD UREA NITROGEN 18 mg/dL 7-21 (BEAKER) (test code = 354) CREATININE (BEAKER) 0.79 mg/dL 0.57-1.25 (test code = 358) GLUCOSE RANDOM 146 mg/dL 70-105 H (BEAKER) (test code = 652) CALCIUM (BEAKER) 7.8 mg/dL 8.4-10.2 L (test code = 697) EGFR (BEAKER) (test 97 mL/min/1.73 ESTIMA SUSIE GFR IS code = 1092) sq m NOT ACCURATE CREATININE CLEARANCE IN PREDICTING GLOMERULAR FILTRATION RATE . ESTIMATED GFR I S NOT APPLICABLE FOR DIALYSIS PATIEN TS. Chocolate Temperer ID - CECILE [id number] 05:34:00 Test Item Value Reference Range Interpretation Comments MAGNESIUM (BEAKER) (test code = 2.0 mg/dL 1.6-2.6 627) Chocolate Temperer ID - CECIEL MRAD, CHEST, 1 VIEW, NON [id number] 05:18:00Reason for exam:->post opShould this be performed at the bedside?->Yes [facility] 1950 Sex: MFINAL REPORT RAD, CHEST, 1 VIEW, NON DEPT INDICATION: post op C OMPARISON: Prior day's exam FINDINGS: Portable frontal view of the chest. IMPRESSION: Support Lines: Stable. Lungs and pleura: Unchanged airspace and pleural opacities. No pneumothorax.Heart and mediastinum: Stable contours. Stable surgical changes.Additional findings: None. Signed: Tegan Johns Verified Date/Time: 09/04/2020 05:18:32 CBC W/PLT COUNT & AUTO [id number] 04:52:00 Test Item Value Reference Range Interpretation Comments WHITE BLOOD CELL COUNT (BEAKER) 5.1 K/ L 3.5-10.5 (test code = 775) RED BLOOD CELL COUNT (BEAKER) 2.35 M/ L 4.63-6.08 L (test code = 761) HEMOGLOBIN (BEAKER) (test code = 6.6 GM/DL 13.7-17.5 L 410) HEMATOCRIT (BEAKER) (test code = 20.9 % 40.1-51.0 L 411) MEAN CORPUSCULAR VOLUME (BEAKER) 88.9 fL 79.0-92.2 (test code = 753) MEAN CORPUSCULAR HEMOGLOBIN 28.1 pg 25.7-32.2 (BEAKER) (test code = 751) MEAN CORPUSCULAR HEMOGLOBIN CONC 31.6 GM/DL 32.3-36.5 L (BEAKER) (test code = 752) RED CELL DISTRIBUTION WIDTH 15.6 % 11.6-14.4 H (BEAKER) (test code = 412) PLATELET COUNT (BEAKER) (test code 61 K/CU MM 150-450 L = 756) MEAN PLATELET VOLUME (BEAKER) 10.8 fL 9.4-12.4 (test code = 754) NUCLEATED RED BLOOD CELLS (BEAKER) 0 /100 WBC 0-0 (test code = 413) NEUTROPHILS RELATIVE PERCENT 76 % (BEAKER) (test code = 429) LYMPHOCYTES RELATIVE PERCENT 10 % (BEAKER) (test code = 430) MONOCYTES RELATIVE PERCENT 8 % (BEAKER) (test code = 431) EOSINOPHILS RELATIVE PERCENT 5 % (BEAKER) (test code = 432) BASOPHILS RELATIVE PERCENT 0 % (BEAKER) (test code = 437) NEUTROPHILS ABSOLUTE COUNT 3.83 K/ L 1.78-5.38 (BEAKER) (test code = 670) LYMPHOCYTES ABSOLUTE COUNT 0.52 K/ L 1.32-3.57 L (BEAKER) (test code = 414) MONOCYTES ABSOLUTE COUNT (BEAKER) 0.42 K/ L 0.30-0.82 (test code = 415) EOSINOPHILS ABSOLUTE COUNT 0.26 K/ L 0.04-0.54 (BEAKER) (test code = 416) BASOPHILS ABSOLUTE COUNT (BEAKER) 0.01 K/ L 0.01-0.08 (test code = 417) IMMATURE GRANULOCYTES-RELATIVE 1 % 0-1 PERCENT (BEAKER) (test code = 2801) CALCIUM, [id number] 04:40:00 Test Item Value Reference Range Interpretation Comments CALCIUM IONIZED (BEAKER) (test 1.08 mmol/L 1.12-1.27 L code = 698) PH, BLOOD (BEAKER) (test code = 7.41 1810) BLOOD GAS, [id number] 04:39:00 Test Item Value Reference Range Interpretation Comments PH ARTERIAL (BEAKER) (test code = 7.41 7.35-7.45 383) PCO2 ARTERIAL (BEAKER) (test code 45 mm Hg 35-45 = 384) PO2 ARTERIAL (BEAKER) (test code = 196 mm Hg 80-90 H 385) O2 SATURATION ARTERIAL (BEAKER) 99.3 % 96.0-97.0 H (test code = 386) HCO3 ARTERIAL (BEAKER) (test code 28 mmol/L 21-29 = 388) BASE EXCESS ARTERIAL (BEAKER) 3.3 mmol/L -2.0-3.0 H (test code = 387) PATIENT TEMPERATURE (BEAKER) (test 37.0 code = 1818) FIO2 (BEAKER) (test code = 1819) 40.0 POCT-GLUCOSE [id number] 22:33:00 Test Item Value Reference Range Interpretation Comments POC-GLUCOSE METER 153 mg/dL 70-110 H : TESTED A T [facility] 6720 (BEAKER) (test code = IDRIS [place], 1538) [address]: Chocolate Temperer/Techni hilary ID = [id number] for DO September POCT-GLUCOSE [id number] 12:17:00 Test Item Value Reference Range Interpretation Comments POC-GLUCOSE METER 176 mg/dL 70-110 H : TESTED A T [facility] 6720 (BEAKER) (test code = IDRIS ARRIAZ[place], 1538) [address]: Chocolate Temperer/Techni hilary ID = [id number] for SONIA MO RAD, CHEST, 1 VIEW, NON [id number] 05:18:00Reason for exam:->SOB [facility] 1950 Sex: MFINAL REPORT RAD, CHEST, 1 VIEW, NON DEPT INDICATION: SOB COMPARISON: 3 hours prior FINDINGS: Portable frontal view of the chest. IMPRESSION: Support Lines: No significant change. Lungs and pleura: Unchanged airspace and pleural opacities. No pneumothorax.Heartand mediastinum: Stable contours. Additional findings: None. Signed: Clifford Gant MDReport Verified Date/Time: 09/03/2020 05:18:55 CBC W/PLT COUNT & AUTO [id number] 03:57:00 Test Item Value Reference Range Interpretation Comments WHITE BLOOD CELL COUNT (BEAKER) 8.4 K/ L 3.5-10.5 (test code = 775) RED BLOOD CELL COUNT (BEAKER) 2.83 M/ L 4.63-6.08 L (test code = 761) HEMOGLOBIN (BEAKER) (test code = 7.9 GM/DL 13.7-17.5 L 410) HEMATOCRIT (BEAKER) (test code = 25.0 % 40.1-51.0 L 411) MEAN CORPUSCULAR VOLUME (BEAKER) 88.3 fL 79.0-92.2 (test code = 753) MEAN CORPUSCULAR HEMOGLOBIN 27.9 pg 25.7-32.2 (BEAKER) (test code = 751) MEAN CORPUSCULAR HEMOGLOBIN CONC 31.6 GM/DL 32.3-36.5 L (BEAKER) (test code = 752) RED CELL DISTRIBUTION WIDTH 15.6 % 11.6-14.4 H (BEAKER) (test code = 412) PLATELET COUNT (BEAKER) (test code 66 K/CU MM 150-450 L = 756) MEAN PLATELET VOLUME (BEAKER) 11.0 fL 9.4-12.4 (test code = 754) NUCLEATED RED BLOOD CELLS (BEAKER) 0 /100 WBC 0-0 (test code = 413) NEUTROPHILS RELATIVE PERCENT 85 % (BEAKER) (test code = 429) LYMPHOCYTES RELATIVE PERCENT 5 % (BEAKER) (test code = 430) MONOCYTES RELATIVE PERCENT 8 % (BEAKER) (test code = 431) EOSINOPHILS RELATIVE PERCENT 1 % (BEAKER) (test code = 432) BASOPHILS RELATIVE PERCENT 0 % (BEAKER) (test code = 437) NEUTROPHILS ABSOLUTE COUNT 7.18 K/ L 1.78-5.38 H (BEAKER) (test code = 670) LYMPHOCYTES ABSOLUTE COUNT 0.42 K/ L 1.32-3.57 L (BEAKER) (test code = 414) MONOCYTES ABSOLUTE COUNT (BEAKER) 0.71 K/ L 0.30-0.82 (test code = 415) EOSINOPHILS ABSOLUTE COUNT 0.06 K/ L 0.04-0.54 (BEAKER) (test code = 416) BASOPHILS ABSOLUTE COUNT (BEAKER) 0.02 K/ L 0.01-0.08 (test code = 417) IMMATURE GRANULOCYTES-RELATIVE 1 % 0-1 PERCENT (BEAKER) (test code = 2801) [id number] 03:52:00 Test Item Value Reference Range Interpretation Comments MAGNESIUM (BEAKER) (test code = 2.3 mg/dL 1.6-2.6 627) Chocolate Temperer ID - CECILE [id number] 03:52:00 Test Item Value Reference Range Interpretation Comments PHOSPHORUS (BEAKER) (test code = 2.5 mg/dL 2.3-4.7 604) Chocolate Temperer ID - CECILE MBASIC METABOLIC [id number] 03:52:00 Test Item Value Reference Range Interpretation Comments SODIUM (BEAKER) 137 meq/L 136-145 (test code = 381) POTASSIUM (BEAKER) 4.5 meq/L 3.5-5.1 (test code = 379) CHLORIDE (BEAKER) 106 meq/L 98-107 (test code = 382) CO2 (BEAKER) (test 23 meq/L 22-29 code = 355) BLOOD UREA NITROGEN 14 mg/dL 7-21 (BEAKER) (test code = 354) CREATININE (BEAKER) 0.85 mg/dL 0.57-1.25 (test code = 358) GLUCOSE RANDOM 187 mg/dL 70-105 H (BEAKER) (test code = 652) CALCIUM (BEAKER) 8.2 mg/dL 8.4-10.2 L (test code = 697) EGFR (BEAKER) (test 89 mL/min/1.73 ESTIMA SUSIE GFR IS code = 1092) sq m NOT ACCURATE CREATININE CLEARANCE IN PREDICTING GLOMERULAR FILTRATION RATE . ESTIMATED GFR I S NOT APPLICABLE FOR DIALYSIS PATIEN TS. Chocolate Temperer ID - CECILE MSpecimen slightly ictericBLOOD GAS, [id number] 03:42:00 Test Item Value Reference Range Interpretation Comments PH ARTERIAL (BEAKER) (test code = 7.43 7.35-7.45 383) PCO2 ARTERIAL (BEAKER) (test code 37 mm Hg 35-45 = 384) PO2 ARTERIAL (BEAKER) (test code 106 mm Hg 80-90 H = 385) O2 SATURATION ARTERIAL (BEAKER) 98.0 % 96.0-97.0 H (test code = 386) HCO3 ARTERIAL (BEAKER) (test code 24 mmol/L 21-29 = 388) BASE EXCESS ARTERIAL (BEAKER) -0.1 mmol/L -2.0-3.0 (test code = 387) PATIENT TEMPERATURE (BEAKER) 37.0 (test code = 1818) FIO2 (BEAKER) (test code = 1819) 36.0 CALCIUM, [id number] 03:42:00 Test Item Value Reference Range Interpretation Comments CALCIUM IONIZED (BEAKER) (test 1.10 mmol/L 1.12-1.27 L code = 698) PH, BLOOD (BEAKER) (test code = 7.43 1810) RAD, CHEST, 1 VIEW, NON [id number] 02:29:00Reason for exam:->post opShould this be performed at the bedside?->Yes [facility] 1950 Sex: MFINAL REPORT Chest one view. Clinical history: post op Comparison: Chest radiograph 09/02/2020, 8:57 AM. Technique: A single frontal view of the chest was obtained. Findings:The patient is status post TAVR. There is a left- sided pacemaker with leads unchanged. Support lines and tubes are unchanged in position.The cardiomediastinal contours are stable. There are diffuse bilateral airspace opacities, mildly increased. There are small loculated bilateral pleural effusions, right greater than left. There is a small right basilar pneumothorax. Signed: Dom Pro Verified Date/Time: 09/03/2020 02:29:38 Prepare [id number] 23:54:00 Test Item Value Reference Range Interpretation Comments Unit ABO (test code = 5175521) A Pos UNIT NUMBER (test code = [id number] 934-0) Status (test code = 8871310) TX_TIMEINCHART Blood Bank Product (test code PLATELETS = 2263) PRODUCT CODE (test code = P7421F87 933-2) [facility] [id number] 22:54:00 Test Item Value Reference Range Interpretation Comments MAGNESIUM (BEAKER) 1.9 mg/dL 1.6-2.6 Specimen slightly (test code = 627) hemolyzed Chocolate Temperer ID - RALPH [id number] 22:54:00 Test Item Value Reference Range Interpretation Comments PHOSPHORUS (BEAKER) 2.9 mg/dL 2.3-4.7 Specimen slightly (test code = 604) hemolyzed Chocolate Temperer ID - RALPH BLACTIC ACID, [id number] 22:39:00 Test Item Value Reference Range Interpretation Comments LACTATE BLOOD 1.5 mmol/L 0.5-2.2 Specimen sligh tly ARTERIAL (2) (BEAKER) hemoly zed (test code = 2874) Chocolate Temperer ID - RALPH BSpecimen slightly ictericHGB/HCT (H&H)-Stat Lab 2020-09-02 22:30:00 Test Item Value Reference Range Interpretation Comments Hemoglobin (test code = 8.5 See_Comment L [Au tomated message] 786-4) The system [employer] generated this result transmitted ref erence range: 13.0 - 1 6.8 GM/DL. The refe rence range was not u sed to interpret this result as normal/abnor mal. Hematocrit (test code = 25.0 % 40-50 L 4544-3) Lab Interpretation (test Abnormal code = 78772-0) [facility] CenterGlucose-Stat [id number] 22:30:00 Test Item Value Reference Range Interpretation Comments Glucose (test code = 2345-7) 164 mg/dL 70-110 H Lab Interpretation (test code = Abnormal 74396-0) [facility] [id number] 22:30:00 Test Item Value Reference Range Interpretation Comments Sodium (test code = 2951-2) 134 meq/L 136-145 L Lab Interpretation (test code = Abnormal 70840-0) [facility] CenterCALCIUM, [id number] 22:30:00 Test Item Value Reference Range Interpretation Comments CALCIUM IONIZED (BEAKER) (test 1.08 mmol/L 1.12-1.27 L code = 698) PH, BLOOD (BEAKER) (test code = 7.42 1810) BLOOD GAS, [id number] 22:30:00 Test Item Value Reference Range Interpretation Comments PH ARTERIAL (BEAKER) (test code = 7.42 7.35-7.45 383) PCO2 ARTERIAL (BEAKER) (test code 37 mm Hg 35-45 = 384) PO2 ARTERIAL (BEAKER) (test code 107 mm Hg 80-90 H = 385) O2 SATURATION ARTERIAL (BEAKER) 98.0 % 96.0-97.0 H (test code = 386) HCO3 ARTERIAL (BEAKER) (test code 24 mmol/L 21-29 = 388) BASE EXCESS ARTERIAL (BEAKER) -0.5 mmol/L -2.0-3.0 (test code = 387) PATIENT TEMPERATURE (BEAKER) 36.8 (test code = 1818) FIO2 (BEAKER) (test code = 1819) 36.0 SODIUM NA-STAT [id number] 22:30:00 Test Item Value Reference Range Interpretation Comments SODIUM (BEAKER) (test code = 381) 134 meq/L 136-145 L GLUCOSE-STAT [id number] 22:30:00 Test Item Value Reference Range Interpretation Comments GLUCOSE RANDOM (BEAKER) (test code 164 mg/dL 70-110 H = 652) HGB/HCT (H&H) - STAT [id number] 22:30:00 Test Item Value Reference Range Interpretation Comments HEMOGLOBIN (BEAKER) (test code = 8.5 GM/DL 13.0-16.8 L 410) HEMATOCRIT (BEAKER) (test code = 25.0 % 40.0-50.0 L 411) POTASSIUM-STAT [id number] 22:29:00 Test Item Value Reference Range Interpretation Comments POTASSIUM (BEAKER) (test code = 4.0 meq/L 3.6-5.5 379) POCT-GLUCOSE [id number] 17:55:00 Test Item Value Reference Range Interpretation Comments POC-GLUCOSE METER 153 mg/dL 70-110 H : TESTED A T [facility] 6720 (BEAKER) (test code = IDRIS Galan ARSALAN OLIVAREZ, 1538) [address]: Chocolate Temperer/Techni hilary ID = [id number] for JANETT GREWALU POCT-GLUCOSE [id number] 13:10:00 Test Item Value Reference Range Interpretation Comments POC-GLUCOSE METER 133 mg/dL 70-110 H : TESTED A T [facility] 6720 (BEAKER) (test code = [facility] [place], 1538) [address]: Chocolate Temperer/Techni hilary ID = [id number] for JA COB, JORGITO [id number] 09:33:00 Test Item Value Reference Range Interpretation Comments MAGNESIUM (BEAKER) (test code = 2.0 mg/dL 1.6-2.6 627) Chocolate Temperer ID - CECILE MBASIC METABOLIC [id number] 09:33:00 Test Item Value Reference Range Interpretation Comments SODIUM (BEAKER) 138 meq/L 136-145 (test code = 381) POTASSIUM (BEAKER) 4.3 meq/L 3.5-5.1 (test code = 379) CHLORIDE (BEAKER) 107 meq/L 98-107 (test code = 382) CO2 (BEAKER) (test 23 meq/L 22-29 code = 355) BLOOD UREA NITROGEN 14 mg/dL 7-21 (BEAKER) (test code = 354) CREATININE (BEAKER) 0.95 mg/dL 0.57-1.25 (test code = 358) GLUCOSE RANDOM 132 mg/dL 70-105 H (BEAKER) (test code = 652) CALCIUM (BEAKER) 8.1 mg/dL 8.4-10.2 L (test code = 697) EGFR (BEAKER) (test 79 mL/min/1.73 ESTIMA SUSIE GFR IS code = 1092) sq m NOT ACCURATE CREATININE CLEARANCE IN PREDICTING GLOMERULAR FILTRATION RATE . ESTIMATED GFR I S NOT APPLICABLE FOR DIALYSIS PATIEN TS. Chocolate Temperer ID - CECILE MSpecimen slightly ictericLACTIC ACID, [id number] 09:28:00 Test Item Value Reference Range Interpretation Comments LACTATE BLOOD ARTERIAL (2) 1.5 mmol/L 0.5-2.2 (BEAKER) (test code = 2874) Chocolate Temperer ID - CECILE MSpecimen slightly ictericPOCT-GLUCOSE [id number] 09:19:00 Test Item Value Reference Range Interpretation Comments POC-GLUCOSE METER 138 mg/dL 70-110 H : TESTED A T [facility] 6720 (BEAKER) (test code = [facility] [place], 1538) [address]: Chocolate Temperer/Techni hilary ID = [id number] for JA COB, JORGITO RAD, CHEST, 1 VIEW, NON [id number] 09:17:00Reason for exam:- >dyspneaShould this be performed at the bedside?->Yes [facility] : 1950 Sex: MFINAL REPORT RAD, CHEST, 1 VIEW, NON DEPT INDICATION: dyspnea C OMPARISON: Numerous seven hours prior FINDINGS: Portable frontal view of the chest. IMPRESSION: Support Lines: Stable. Lungs and pleura: No significant change in diffuse edema and pleural effusions.No pneumothorax.Heart and mediastinum: Stable contours. Stable surgical changes.Additional findings:None. Signed: JR Montaño Robert MDReport Verified Date/Time: 09/02/2020 09:17:47 Reading Location: [facility] Radiology Reading Room CBC W/PLT COUNT & AUTO [id number] 09:14:00 Test Item Value Reference Range Interpretation Comments WHITE BLOOD CELL COUNT (BEAKER) 8.9 K/ L 3.5-10.5 (test code = 775) RED BLOOD CELL COUNT (BEAKER) 3.07 M/ L 4.63-6.08 L (test code = 761) HEMOGLOBIN (BEAKER) (test code = 8.8 GM/DL 13.7-17.5 L 410) HEMATOCRIT (BEAKER) (test code = 27.1 % 40.1-51.0 L 411) MEAN CORPUSCULAR VOLUME (BEAKER) 88.3 fL 79.0-92.2 (test code = 753) MEAN CORPUSCULAR HEMOGLOBIN 28.7 pg 25.7-32.2 (BEAKER) (test code = 751) MEAN CORPUSCULAR HEMOGLOBIN CONC 32.5 GM/DL 32.3-36.5 (BEAKER) (test code = 752) RED CELL DISTRIBUTION WIDTH 15.9 % 11.6-14.4 H (BEAKER) (test code = 412) PLATELET COUNT (BEAKER) (test code 74 K/CU MM 150-450 L = 756) MEAN PLATELET VOLUME (BEAKER) 10.6 fL 9.4-12.4 (test code = 754) NUCLEATED RED BLOOD CELLS (BEAKER) 0 /100 WBC 0-0 (test code = 413) NEUTROPHILS RELATIVE PERCENT 84 % (BEAKER) (test code = 429) LYMPHOCYTES RELATIVE PERCENT 6 % (BEAKER) (test code = 430) MONOCYTES RELATIVE PERCENT 9 % (BEAKER) (test code = 431) EOSINOPHILS RELATIVE PERCENT 0 % (BEAKER) (test code = 432) BASOPHILS RELATIVE PERCENT 0 % (BEAKER) (test code = 437) NEUTROPHILS ABSOLUTE COUNT 7.43 K/ L 1.78-5.38 H (BEAKER) (test code = 670) LYMPHOCYTES ABSOLUTE COUNT 0.56 K/ L 1.32-3.57 L (BEAKER) (test code = 414) MONOCYTES ABSOLUTE COUNT (BEAKER) 0.80 K/ L 0.30-0.82 (test code = 415) EOSINOPHILS ABSOLUTE COUNT 0.02 K/ L 0.04-0.54 L (BEAKER) (test code = 416) BASOPHILS ABSOLUTE COUNT (BEAKER) 0.02 K/ L 0.01-0.08 (test code = 417) IMMATURE GRANULOCYTES-RELATIVE 1 % 0-1 PERCENT (BEAKER) (test code = 2801) BLOOD GAS, [id number] 09:02:00 Test Item Value Reference Range Interpretation Comments PH ARTERIAL (BEAKER) (test code = 7.38 7.35-7.45 383) PCO2 ARTERIAL (BEAKER) (test code 40 mm Hg 35-45 = 384) PO2 ARTERIAL (BEAKER) (test code 97 mm Hg 80-90 H = 385) O2 SATURATION ARTERIAL (BEAKER) 97.5 % 96.0-97.0 H (test code = 386) HCO3 ARTERIAL (BEAKER) (test code 23 mmol/L 21-29 = 388) BASE EXCESS ARTERIAL (BEAKER) -2.1 mmol/L -2.0-3.0 L (test code = 387) PATIENT TEMPERATURE (BEAKER) 36.1 (test code = 1818) FIO2 (BEAKER) (test code = 1819) 40.0 POCT-GLUCOSE [id number] 07:20:00 Test Item Value Reference Range Interpretation Comments POC-GLUCOSE METER 74 mg/dL 70-110 : TESTED A T [facility] 6720 (BEAKER) (test code = I[place], 1538) [id number]: Chocolate Temperer/Techni hilary ID = [id number] for Karoline Sotelo BASIC METABOLIC [id number] 04:42:00 Test Item Value Reference Range Interpretation Comments SODIUM (BEAKER) 139 meq/L 136-145 (test code = 381) POTASSIUM (BEAKER) 4.2 meq/L 3.5-5.1 (test code = 379) CHLORIDE (BEAKER) 107 meq/L 98-107 (test code = 382) CO2 (BEAKER) (test 24 meq/L 22-29 code = 355) BLOOD UREA NITROGEN 15 mg/dL 7-21 (BEAKER) (test code = 354) CREATININE (BEAKER) 0.95 mg/dL 0.57-1.25 (test code = 358) GLUCOSE RANDOM 123 mg/dL 70-105 H (BEAKER) (test code = 652) CALCIUM (BEAKER) 7.6 mg/dL 8.4-10.2 L (test code = 697) EGFR (BEAKER) (test 79 mL/min/1.73 ESTIMA SUSIE GFR IS code = 1092) sq m NOT ACCURATE CREATININE CLEARANCE IN PREDICTING GLOMERULAR FILTRATION RATE . ESTIMATED GFR I S NOT APPLICABLE FOR DIALYSIS PATIEN TS. Chocolate Temperer ID - PIAYA [id number] 04:24:00 Test Item Value Reference Range Interpretation Comments MAGNESIUM (BEAKER) (test code = 2.0 mg/dL 1.6-2.6 627) Chocolate Temperer ID - PIAYAD [id number] 04:24:00 Test Item Value Reference Range Interpretation Comments PHOSPHORUS (BEAKER) (test code = 3.2 mg/dL 2.3-4.7 604) Chocolate Temperer ID - PIAYAD LCALCIUM, [id number] 04:02:00 Test Item Value Reference Range Interpretation Comments CALCIUM IONIZED (BEAKER) (test 1.07 mmol/L 1.12-1.27 L code = 698) PH, BLOOD (BEAKER) (test code = 7.38 1810) BLOOD GAS, [id number] 04:02:00 Test Item Value Reference Range Interpretation Comments PH ARTERIAL (BEAKER) (test code = 7.38 7.35-7.45 383) PCO2 ARTERIAL (BEAKER) (test code 44 mm Hg 35-45 = 384) PO2 ARTERIAL (BEAKER) (test code = 159 mm Hg 80-90 H 385) O2 SATURATION ARTERIAL (BEAKER) 99.0 % 96.0-97.0 H (test code = 386) HCO3 ARTERIAL (BEAKER) (test code 25 mmol/L 21-29 = 388) BASE EXCESS ARTERIAL (BEAKER) 0.1 mmol/L -2.0-3.0 (test code = 387) PATIENT TEMPERATURE (BEAKER) (test 37.2 code = 1818) FIO2 (BEAKER) (test code = 1819) 36.0 CBC W/PLT COUNT & AUTO [id number] 04:01:00 Test Item Value Reference Range Interpretation Comments WHITE BLOOD CELL COUNT (BEAKER) 7.8 K/ L 3.5-10.5 (test code = 775) RED BLOOD CELL COUNT (BEAKER) 2.91 M/ L 4.63-6.08 L (test code = 761) HEMOGLOBIN (BEAKER) (test code = 8.2 GM/DL 13.7-17.5 L 410) HEMATOCRIT (BEAKER) (test code = 26.5 % 40.1-51.0 L 411) MEAN CORPUSCULAR VOLUME (BEAKER) 91.1 fL 79.0-92.2 (test code = 753) MEAN CORPUSCULAR HEMOGLOBIN 28.2 pg 25.7-32.2 (BEAKER) (test code = 751) MEAN CORPUSCULAR HEMOGLOBIN CONC 30.9 GM/DL 32.3-36.5 L (BEAKER) (test code = 752) RED CELL DISTRIBUTION WIDTH 15.8 % 11.6-14.4 H (BEAKER) (test code = 412) PLATELET COUNT (BEAKER) (test code 82 K/CU MM 150-450 L = 756) MEAN PLATELET VOLUME (BEAKER) 10.7 fL 9.4-12.4 (test code = 754) NUCLEATED RED BLOOD CELLS (BEAKER) 0 /100 WBC 0-0 (test code = 413) NEUTROPHILS RELATIVE PERCENT 85 % (BEAKER) (test code = 429) LYMPHOCYTES RELATIVE PERCENT 5 % (BEAKER) (test code = 430) MONOCYTES RELATIVE PERCENT 9 % (BEAKER) (test code = 431) EOSINOPHILS RELATIVE PERCENT 0 % (BEAKER) (test code = 432) BASOPHILS RELATIVE PERCENT 0 % (BEAKER) (test code = 437) NEUTROPHILS ABSOLUTE COUNT 6.67 K/ L 1.78-5.38 H (BEAKER) (test code = 670) LYMPHOCYTES ABSOLUTE COUNT 0.41 K/ L 1.32-3.57 L (BEAKER) (test code = 414) MONOCYTES ABSOLUTE COUNT (BEAKER) 0.68 K/ L 0.30-0.82 (test code = 415) EOSINOPHILS ABSOLUTE COUNT 0.01 K/ L 0.04-0.54 L (BEAKER) (test code = 416) BASOPHILS ABSOLUTE COUNT (BEAKER) 0.02 K/ L 0.01-0.08 (test code = 417) IMMATURE GRANULOCYTES-RELATIVE 0 % 0-1 PERCENT (BEAKER) (test code = 2801) POCT-GLUCOSE [id number] 02:39:00 Test Item Value Reference Range Interpretation Comments POC-GLUCOSE METER 137 mg/dL 70-110 H : TESTED A T [facility] 6720 (BEAKER) (test code = IDRIS Galan [facility], 1538) [id number]: Chocolate Temperer/Techni hilary ID = [id number] for Panda rodrigoKhloe meeksica RAD, CHEST, 1 VIEW, NON [id number] 02:33:00Reason for exam:->post opShould this be performed at the bedside?->Yes [facility] 1950 Sex: MFINAL REPORT RAD, CHEST, 1 VIEW, NON DEPT INDICATION: post op C OMPARISON: 9 hours prior. FINDINGS: Portable frontal view of the chest. IMPRESSION: Support Lines: ET tube and enteric tube have been removed. Otherwise stable support apparatus.Lungs and pleura: Bilateral pulmonary airspace opacities increased on the left, with decrease consolidation on the right.No pneumothorax.Heart and mediastinum: Stable contours. Additional findings: None. Signed: Clifford Ganteport Verified Date/Time: 09/02/2020 02:33:30 POCT-GLUCOSE [id number] 01:25:00 Test Item Value Reference Range Interpretation Comments POC-GLUCOSE METER 151 mg/dL 70-110 H : TESTED A T [facility] 6720 (BEAKER) (test code = [facility], 1538) [address]: Chocolate Temperer/Techni hilary ID = [id number] for We bster, Karoline POCT-GLUCOSE [id number] 00:04:00 Test Item Value Reference Range Interpretation Comments POC-GLUCOSE METER 136 mg/dL 70-110 H : TESTED A T [facility] 6720 (BEAKER) (test code = [facility], 1538) [address]: Chocolate Temperer/Techni hilary ID = [id number] for We bster, Karoline POCT-GLUCOSE [id number] 20:52:00 Test Item Value Reference Range Interpretation Comments POC-GLUCOSE METER 166 mg/dL 70-110 H : TESTED A T [facility] 6720 (BEAKER) (test code = [facility], 1538) [address]: Chocolate Temperer/Techni hilary ID = [id number] for We bster, Karoline POCT-GLUCOSE [id number] 20:50:00 Test Item Value Reference Range Interpretation Comments POC-GLUCOSE METER 161 mg/dL 70-110 H : [facility] ([facility] (test code = [place], 1538) [address]: Chocolate Temperer/Techni hilary ID = [id number] for JAYA BISWAS, JORGITO BLOOD GAS, [id number] 19:41:00 Test Item Value Reference Range Interpretation Comments PH ARTERIAL (BEAKER) (test code = 7.38 7.35-7.45 383) PCO2 ARTERIAL (BEAKER) (test code 42 mm Hg 35-45 = 384) PO2 ARTERIAL (BEAKER) (test code 159 mm Hg 80-90 H = 385) O2 SATURATION ARTERIAL (BEAKER) 99.0 % 96.0-97.0 H (test code = 386) HCO3 ARTERIAL (BEAKER) (test code 24 mmol/L = 388) BASE EXCESS ARTERIAL (BEAKER) -0.6 mmol/L -2.0-3.0 (test code = 387) PATIENT TEMPERATURE (BEAKER) 37.5 (test code = 1818) FIO2 (BEAKER) (test code = 1819) 40.0 LACTIC ACID, [id number] 17:42:00 Test Item Value Reference Range Interpretation Comments LACTATE BLOOD ARTERIAL (2) 2.2 mmol/L 0.5-2.2 (BEAKER) (test code = 2874) Chocolate Temperer ID - DBSODIUM NA-STAT [id number] 17:23:00 Test Item Value Reference Range Interpretation Comments SODIUM (BEAKER) (test code = 381) 138 meq/L 136-145 POTASSIUM-STAT [id number] 17:23:00 Test Item Value Reference Range Interpretation Comments POTASSIUM (BEAKER) (test code = 4.0 meq/L 3.6-5.5 379) BLOOD GAS, [id number] 17:23:00 Test Item Value Reference Range Interpretation Comments PH ARTERIAL (BEAKER) (test code = 7.40 7.35-7.45 383) PCO2 ARTERIAL (BEAKER) (test code 43 mm Hg 35-45 = 384) PO2 ARTERIAL (BEAKER) (test code = 110 mm Hg 80-90 H 385) O2 SATURATION ARTERIAL (BEAKER) 98.0 % 96.0-97.0 H (test code = 386) HCO3 ARTERIAL (BEAKER) (test code 26 mmol/L = 388) BASE EXCESS ARTERIAL (BEAKER) 0.6 mmol/L -2.0-3.0 (test code = 387) PATIENT TEMPERATURE (BEAKER) (test 37.1 code = 1818) FIO2 (BEAKER) (test code = 1819) 40.0 GLUCOSE-STAT [id number] 17:23:00 Test Item Value Reference Range Interpretation Comments GLUCOSE RANDOM (BEAKER) (test code 144 mg/dL 70-110 H = 652) HGB/HCT (H&H) - STAT [id number] 17:23:00 Test Item Value Reference Range Interpretation Comments HEMOGLOBIN (BEAKER) (test code = 9.5 GM/DL 13.0-16.8 L 410) HEMATOCRIT (BEAKER) (test code = 28.0 % 40.0-50.0 L 411) COMPREHENSIVE METABOLIC [id number] 15:53:00 Test Item Value Reference Range Interpretation Comments TOTAL PROTEIN 5.3 gm/dL 6.0-8.3 L Specimen sligh tly (BEAKER) (test code = hemoly zed 770) ALBUMIN (BEAKER) 3.1 g/dL 3.5-5.0 L Specimen sl ightly (test code = 1145) hemolyzed ALKALINE PHOSPHATASE 56 U/L 40-150 (BEAKER) (test code = 346) BILIRUBIN TOTAL 1.3 mg/dL 0.2-1.2 H Specimen sli ghtly (BEAKER) (test code = hemoly zed 377) SODIUM (BEAKER) (test 138 meq/L 136-145 code = 381) POTASSIUM (BEAKER) 4.1 meq/L 3.5-5.1 Specimen slightly (test code = 379) hemolyzed CHLORIDE (BEAKER) 106 meq/L 98-107 (test code = 382) CO2 (BEAKER) (test 24 meq/L 22-29 code = 355) BLOOD UREA NITROGEN 16 mg/dL 7-21 (BEAKER) (test code = 354) CREATININE (BEAKER) 0.79 mg/dL 0.57-1.25 Specimen slightly (test code = 358) hemolyzed GLUCOSE RANDOM 192 mg/dL 70-105 H (BEAKER) (test code = 652) CALCIUM (BEAKER) 7.7 mg/dL 8.4-10.2 L (test code = 697) AST (SGOT) (BEAKER) 53 U/L 5-34 H Specimen slightly (test code = 353) hemolyzed ALT (SGPT) (BEAKER) 24 U/L 6-55 Specimen slightly (test code = 347) hemolyzed EGFR (BEAKER) (test 97 mL/min/1.73 ESTIMA SUSIE GFR IS code = 1092) sq m NOT ACCURATE CREATININE CLEARANCE IN PREDICTING GLOMERULAR FILTRATION RATE . ESTIMATED GFR I S NOT APPLICABLE FOR DIALYSIS PATIEN TS. Chocolate Temperer ID - [id number] 15:47:00 Test Item Value Reference Range Interpretation Comments MAGNESIUM (BEAKER) 2.0 mg/dL 1.6-2.6 Specimen slightly (test code = 627) hemolyzed Chocolate Temperer ID - [id number] 15:47:00 Test Item Value Reference Range Interpretation Comments PHOSPHORUS (BEAKER) 3.6 mg/dL 2.3-4.7 Specimen slightly (test code = 604) hemolyzed Chocolate Temperer ID - [id number] 15:39:00 Test Item Value Reference Range Interpretation Comments Fibrinogen (test code = 3255-7) 313 mg/dl 225-434 Lab Interpretation (test code = Normal 96321-2) [facility] [id number] 15:39:00 Test Item Value Reference Range Interpretation Comments FIBRINOGEN LEVEL (BEAKER) (test 313 mg/dl 225-434 code = 658) [id number] 15:39:00 Test Item Value Reference Range Interpretation Comments PARTIAL THROMBOPLASTIN TIME 33.1 seconds 22.5-36.0 (BEAKER) (test code = 760) PROTHROMBIN [id number] 15:38:00 Test Item Value Reference Range Interpretation Comments PROTIME (BEAKER) 17.6 seconds 11.9-14.2 H (test code = 759) INR (BEAKER) (test 1.49 See_Comment [Automat ed message] code = 370) The system [employer] generated this result transmitted ref erence range: <=5.90. The reference range was not used to int erpret this result as normal/abnormal . Effective 11/01/2018: PT Reference Range ChangeNew: 11.9-14.2 Previous: 11.7- 14.7RECOMMENDED COUMADIN/WARFARIN INR THERAPY RANGESSTANDARD DOSE: 2.0-3.0 Includes: PROPHYLAXIS for venous thrombosis, systemic embolization; TREATMENT for venous thrombosis and/or pulmonary embolus.HIGH RISK: Target INR is2.5-3.5 for patients wiht mechanical heart valves.CBC W/PLT COUNT & AUTO [id number] 15:28:00 Test Item Value Reference Range Interpretation Comments WHITE BLOOD CELL COUNT (BEAKER) 13.7 K/ L 3.5-10.5 H (test code = 775) RED BLOOD CELL COUNT (BEAKER) 2.71 M/ L 4.63-6.08 L (test code = 761) HEMOGLOBIN (BEAKER) (test code = 7.8 GM/DL 13.7-17.5 L 410) HEMATOCRIT (BEAKER) (test code = 24.5 % 40.1-51.0 L 411) MEAN CORPUSCULAR VOLUME (BEAKER) 90.4 fL 79.0-92.2 (test code = 753) MEAN CORPUSCULAR HEMOGLOBIN 28.8 pg 25.7-32.2 (BEAKER) (test code = 751) MEAN CORPUSCULAR HEMOGLOBIN CONC 31.8 GM/DL 32.3-36.5 L (BEAKER) (test code = 752) RED CELL DISTRIBUTION WIDTH 15.6 % 11.6-14.4 H (BEAKER) (test code = 412) PLATELET COUNT (BEAKER) (test code 55 K/CU MM 150-450 L = 756) MEAN PLATELET VOLUME (BEAKER) 11.6 fL 9.4-12.4 (test code = 754) NUCLEATED RED BLOOD CELLS (BEAKER) 0 /100 WBC 0-0 (test code = 413) NEUTROPHILS RELATIVE PERCENT 88 % (BEAKER) (test code = 429) LYMPHOCYTES RELATIVE PERCENT 9 % (BEAKER) (test code = 430) MONOCYTES RELATIVE PERCENT 2 % (BEAKER) (test code = 431) EOSINOPHILS RELATIVE PERCENT 0 % (BEAKER) (test code = 432) BASOPHILS RELATIVE PERCENT 0 % (BEAKER) (test code = 437) NEUTROPHILS ABSOLUTE COUNT 12.06 K/ L 1.78-5.38 H (BEAKER) (test code = 670) LYMPHOCYTES ABSOLUTE COUNT 1.28 K/ L 1.32-3.57 L (BEAKER) (test code = 414) MONOCYTES ABSOLUTE COUNT (BEAKER) 0.23 K/ L 0.30-0.82 L (test code = 415) EOSINOPHILS ABSOLUTE COUNT 0.06 K/ L 0.04-0.54 (BEAKER) (test code = 416) BASOPHILS ABSOLUTE COUNT (BEAKER) 0.03 K/ L 0.01-0.08 (test code = 417) IMMATURE GRANULOCYTES-RELATIVE 1 % 0-1 PERCENT (BEAKER) (test code = 2801) LACTIC ACID, [id number] 15:24:00 Test Item Value Reference Range Interpretation Comments LACTATE BLOOD 2.8 mmol/L 0.5-2.2 H Specimen sligh tly ARTERIAL (2) (BEAKER) hemoly zed (test code = 2874) Chocolate Temperer ID - DBCBC W/PLT COUNT & AUTO [id number] 15:21:00 Test Item Value Reference Range Interpretation Comments WHITE BLOOD CELL COUNT (BEAKER) 15.8 K/ L 3.5-10.5 H (test code = 775) RED BLOOD CELL COUNT (BEAKER) 3.38 M/ L 4.63-6.08 L (test code = 761) HEMOGLOBIN (BEAKER) (test code = 9.8 GM/DL 13.7-17.5 L 410) HEMATOCRIT (BEAKER) (test code = 29.9 % 40.1-51.0 L 411) MEAN CORPUSCULAR VOLUME (BEAKER) 88.5 fL 79.0-92.2 (test code = 753) MEAN CORPUSCULAR HEMOGLOBIN 29.0 pg 25.7-32.2 (BEAKER) (test code = 751) MEAN CORPUSCULAR HEMOGLOBIN CONC 32.8 GM/DL 32.3-36.5 (BEAKER) (test code = 752) RED CELL DISTRIBUTION WIDTH 15.7 % 11.6-14.4 H (BEAKER) (test code = 412) PLATELET COUNT (BEAKER) (test 118 K/CU MM 150-450 L code = 756) MEAN PLATELET VOLUME (BEAKER) 10.3 fL 9.4-12.4 (test code = 754) NUCLEATED RED BLOOD CELLS 0 /100 WBC 0-0 (BEAKER) (test code = 413) NEUTROPHILS RELATIVE PERCENT 87 % (BEAKER) (test code = 429) LYMPHOCYTES RELATIVE PERCENT 7 % (BEAKER) (test code = 430) MONOCYTES RELATIVE PERCENT 5 % (BEAKER) (test code = 431) EOSINOPHILS RELATIVE PERCENT 0 % (BEAKER) (test code = 432) BASOPHILS RELATIVE PERCENT 0 % (BEAKER) (test code = 437) NEUTROPHILS ABSOLUTE COUNT 13.79 K/ L 1.78-5.38 H (BEAKER) (test code = 670) LYMPHOCYTES ABSOLUTE COUNT 1.06 K/ L 1.32-3.57 L (BEAKER) (test code = 414) MONOCYTES ABSOLUTE COUNT (BEAKER) 0.72 K/ L 0.30-0.82 (test code = 415) EOSINOPHILS ABSOLUTE COUNT 0.06 K/ L 0.04-0.54 (BEAKER) (test code = 416) BASOPHILS ABSOLUTE COUNT (BEAKER) 0.04 K/ L 0.01-0.08 (test code = 417) IMMATURE GRANULOCYTES-RELATIVE 1 % 0-1 PERCENT (BEAKER) (test code = 2801) Oxygen saturation, [id number] 15:16:00 Test Item Value Reference Range Interpretation Comments O2 Saturation (Measured) (test code = 76.1 % 37975-0) [facility] CenterOXYGEN SATURATION, [id number] 15:16:00 Test Item Value Reference Range Interpretation Comments O2 SATURATION (MEASURED) (BEAKER) 76.1 % (test code = 1455) RAD, CHEST, 1 VIEW, NON [id number] 15:16:00Reason for exam:->post opShould this be performed at the bedside?->Yes [facility] 1950 Sex: MFINAL REPORT RAD, CHEST, 1 VIEW, NON DEPT INDICATION: post op C OMPARISON: August 18, 2020 FINDINGS: Portable frontal view of the chest. IMPRESSION: Support Lines: Endotracheal tube terminates 7 cm above the nabor. Multiple surgical drains are present. Right IJ central venous catheter terminates over the superior vena cava. Enteric tube side-port is not visible. Lungs and pleura: Scattered interstitial congestion and developing consolidation versus effusion inthe minor fissure on the right. No pneumothorax.Heart and mediastinum: Stable contours. Interval valvular surgical changes.Additional findings: None. Signed: JR Montaño Robert MDReport Verified Date/Time: 09/01/2020 15:16:22 Reading Location: [facility] Radiology Reading Room BLOOD GAS, [id number] 15:10:00 Test Item Value Reference Range Interpretation Comments PH ARTERIAL (BEAKER) (test code = 7.31 7.35-7.45 L 383) PCO2 ARTERIAL (BEAKER) (test code 51 mm Hg 35-45 H = 384) PO2 ARTERIAL (BEAKER) (test code 175 mm Hg 80-90 H = 385) O2 SATURATION ARTERIAL (BEAKER) 99.0 % 96.0-97.0 H (test code = 386) HCO3 ARTERIAL (BEAKER) (test code 25 mmol/L 21-29 = 388) BASE EXCESS ARTERIAL (BEAKER) -1.5 mmol/L -2.0-3.0 (test code = 387) PATIENT TEMPERATURE (BEAKER) 37.1 (test code = 1818) FIO2 (BEAKER) (test code = 1819) 60.0 CALCIUM, [id number] 15:10:00 Test Item Value Reference Range Interpretation Comments CALCIUM IONIZED (BEAKER) (test 1.06 mmol/L 1.12-1.27 L code = 698) PH, BLOOD (BEAKER) (test code = 7.31 1810) POC ACTIVATED CLOTTING [id number] 14:37:00 Test Item Value Reference Range Interpretation Comments Activated Clotting Time 109 sec : 74 -137 seconds, (test code = 441) Baseline: TESTED AT [address], [address]: Chocolate Temperer/Techni hilary ID = [id number] for Le , Gambino [id number] 14:37:00 Test Item Value Reference Range Interpretation Comments ACTIVATED CLOTTING TIME 109 sec : 74 -137 seconds, (BEAKER) (test code = Baseli ne: TESTED AT 441) [address], [address]: Chocolate Temperer/Techni hilary ID = [id number] for Le , Gambino [id number] 14:37:00 Test Item Value Reference Range Interpretation Comments ACTIVATED CLOTTING TIME 659 sec : 74 -137 seconds, (BEAKER) (test code = Baseli ne: TESTED AT 441) [address], [facility] 30: Chocolate Temperer/Techni hilary ID = [id number] for Le , Gambino [id number] 14:37:00 Test Item Value Reference Range Interpretation Comments ACTIVATED CLOTTING TIME 753 sec : 74 -137 seconds, (BEAKER) (test code = Baseli ne: TESTED AT 441) [address], [address]: Chocolate Temperer/Techni hilary ID = [id number] for Le , Gambino [id number] 14:37:00 Test Item Value Reference Range Interpretation Comments ACTIVATED CLOTTING TIME 907 sec : 74 -137 seconds, (BEAKER) (test code = Baseli ne: TESTED AT 441) [address], [facility] 30: Chocolate Temperer/Techni hilary ID = [id number] for Le , Gambino [id number] 14:37:00 Test Item Value Reference Range Interpretation Comments ACTIVATED CLOTTING TIME 945 sec : 74 -137 seconds, (BEAKER) (test code = Baseli ne: TESTED AT 441) [address], [facility] 30: Chocolate Temperer/Techni hilary ID = [id number] for Le , Gambino [id number] 14:37:00 Test Item Value Reference Range Interpretation Comments ACTIVATED CLOTTING TIME 758 sec : 74 -137 seconds, (BEAKER) (test code = Baseli ne: TESTED AT 441) [place] [address]: Chocolate Temperer/Techni hilary ID = [id number] for Maki Shaw [id number] 14:37:00 Test Item Value Reference Range Interpretation Comments ACTIVATED CLOTTING TIME 577 sec : 74 -137 seconds, (BEAKER) (test code = Baseli ne: TESTED AT 441) [place] [address] 30: Chocolate Temperer/Techni hilary ID = [id number] for Maki Shaw [id number] 14:37:00 Test Item Value Reference Range Interpretation Comments ACTIVATED CLOTTING TIME 433 sec : 74 -137 seconds, (BEAKER) (test code = Baseli ne: TESTED AT 441) [place] [address] 30: Chocolate Temperer/Techni hilary ID = [id number] for Maki Shaw [id number] 14:01:36Robi Patel MD 09/01/2020 3:05 PMTEE Date: 09/01/2020 2:01 PM Sex: Male Location: OR Requesting Physician: Dave Gatica MD Examiner: Robi Patel MDRoberts, Jared Remington Indication: MVR Intubated Patient screened for esoph disease: Yes Insertion: easy Probe Type: multiplane Modalities: 2D, CWD and PWD Valves Annulus Stenosis Area (cm3) Gradient Regurgitation Leaflet Morphology Leaflet Motion Not Visualized Aortic valve Mitral valve calcified severe 0.65 18 none calcified andthickened restricted Tricuspid Pre Intervention Summary: Aorta: No aneurysm, no dissectio n, no mobile plaquesAV: s/p AVR with bioprosthetic valve in good position, no PVL, no prosthetic ,mean gradient 5 mmHg. no aortic regurgitationLV: normal chamber size , mild LVH, normal systolic function (EF 60% by qualitative assessment), no RWMA, no thrombusMV: severe MAC with thickened and calcified MV leaflets and calcific changes to the papillary muscles as well. No MR. Severe mitral stenosis in the setting of DOO pacing at 80 bpm: Gradient 18 mmHg. DOMITILA 0.6 cm^2 by PISA. P1/2t 180 when pacing at 60 bpm. LA: enlarged LA, no CH[place] thrombusPV: limited visualizationRV: normal sized chamber, normal function, no thrombusTV: normal morphology, no tricuspid regurgitationRA: no thrombus no PFO by color dopper flow All findings communicated to surgical team. Post Intervention Summary: Post-opstudy performed in the absence of inotropic support. S/p Muniz Pratik valve in mitral position. Mitral valve: Well- seated valve, in appropriate position. No PVL. No MS, mean gradient 5 mmHg. No CARLOS or LVOT obstruction. Trace color jet noted in the anterior mitral annulus position ( surgeon notified).LV: Normal LV function, 60% EF. No new RWMAAortic valve: No stenosis, no PVL.No other new valvular abnormalities. RV function normal. No dissection or pericardial effusion.No evidence of aortic dissection. Findings described to surgeon.[facility] [id number] 13:54:00 Test Item Value Reference Range Interpretation Comments FIBRINOGEN LEVEL (BEAKER) (test 280 mg/dl 225-434 code = 658) [id number] 13:54:00 Test Item Value Reference Range Interpretation Comments PARTIAL THROMBOPLASTIN TIME 33.1 seconds 22.5-36.0 (BEAKER) (test code = 760) PROTHROMBIN TIME/[id number] 13:53:00 Test Item Value Reference Range Interpretation Comments PROTIME (BEAKER) 21.0 seconds 11.9-14.2 H (test code = 759) INR (BEAKER) (test 1.87 See_Comment [Automat ed message] code = 370) The system [employer] generated this result transmitted ref erence range: <=5.90. The reference range was not used to int erpret this result as normal/abnormal . Effective 11/01/2018: PT Reference Range ChangeNew: 11.9-14.2 Previous: 11.7- 14.7RECOMMENDED COUMADIN/WARFARIN INR THERAPY RANGESSTANDARD DOSE: 2.0-3.0 Includes: PROPHYLAXIS for venous thrombosis, systemic embolization; TREATMENT for venous thrombosis and/or pulmonary embolus.HIGH RISK: Target INR is2.5-3.5 for patients wiht mechanical heart valves.Platelet [id number] 13:42:00 Test Item Value Reference Range Interpretation Comments Platelets (test code 55 See_Comment L [Autom ated = 777-3) message] The system which generated this result transmit susie reference range : 150 - 450 K/CU MM. The reference range was not u sed to interpret th is result as normal/abnormal . KANCHAN (test code = KANCHAN) Chocolate Temperer ID - [id number] Lab Interpretation Abnormal (test code = 26980-2) [facility] CenterPLATE[facility] [id number] 13:42:00 Test Item Value Reference Range Interpretation Comments PLATELET COUNT (BEAKER) (test code 55 K/CU MM 150-450 L = 756) Chocolate Temperer ID - [id number] GAS, [id number] 13:40:00 Test Item Value Reference Range Interpretation Comments PH ARTERIAL (BEAKER) (test code = 7.29 7.35-7.45 L 383) PCO2 ARTERIAL (BEAKER) (test code 54 mm Hg 35-45 H = 384) PO2 ARTERIAL (BEAKER) (test code 251 mm Hg 80-90 H = 385) O2 SATURATION ARTERIAL (BEAKER) 99.5 % 96.0-97.0 H (test code = 386) HCO3 ARTERIAL (BEAKER) (test code 26 mmol/L 21-29 = 388) BASE EXCESS ARTERIAL (BEAKER) -1.4 mmol/L -2.0-3.0 (test code = 387) PATIENT TEMPERATURE (BEAKER) 36.4 (test code = 1818) FIO2 (BEAKER) (test code = 1819) 100.0 GLUCOSE-STAT [id number] 13:40:00 Test Item Value Reference Range Interpretation Comments GLUCOSE RANDOM (BEAKER) (test code 216 mg/dL 70-110 H = 652) HGB/HCT (H&H) - STAT [id number] 13:40:00 Test Item Value Reference Range Interpretation Comments HEMOGLOBIN (BEAKER) (test code = 9.0 GM/DL 13.0-16.8 L 410) HEMATOCRIT (BEAKER) (test code = 26.0 % 40.0-50.0 L 411) CALCIUM, [id number] 13:39:00 Test Item Value Reference Range Interpretation Comments CALCIUM IONIZED (BEAKER) (test 1.16 mmol/L 1.12-1.27 code = 698) PH, BLOOD (BEAKER) (test code = 7.29 1810) SODIUM NA-STAT [id number] 13:38:00 Test Item Value Reference Range Interpretation Comments SODIUM (BEAKER) (test code = 381) 136 meq/L 136-145 POTASSIUM-STAT [id number] 13:38:00 Test Item Value Reference Range Interpretation Comments POTASSIUM (BEAKER) (test code = 4.0 meq/L 3.6-5.5 379) BLOOD GAS, [id number] 13:06:00 Test Item Value Reference Range Interpretation Comments PH ARTERIAL (BEAKER) (test code = 7.45 7.35-7.45 383) PCO2 ARTERIAL (BEAKER) (test code 35 mm Hg 35-45 = 384) PO2 ARTERIAL (BEAKER) (test code = 305 mm Hg 80-90 H 385) O2 SATURATION ARTERIAL (BEAKER) 99.7 % 96.0-97.0 H (test code = 386) HCO3 ARTERIAL (BEAKER) (test code 24 mmol/L 21-29 = 388) BASE EXCESS ARTERIAL (BEAKER) 0.0 mmol/L -2.0-3.0 (test code = 387) PATIENT TEMPERATURE (BEAKER) (test 35.4 code = 1818) FIO2 (BEAKER) (test code = 1819) 65.0 GLUCOSE-STAT [id number] 13:06:00 Test Item Value Reference Range Interpretation Comments GLUCOSE RANDOM (BEAKER) (test code 210 mg/dL 70-110 H = 652) HGB/HCT (H&H) - STAT [id number] 13:06:00 Test Item Value Reference Range Interpretation Comments HEMOGLOBIN (BEAKER) (test code = 8.2 GM/DL 13.0-16.8 L 410) HEMATOCRIT (BEAKER) (test code = 24.0 % 40.0-50.0 L 411) SODIUM NA-STAT [id number] 13:03:00 Test Item Value Reference Range Interpretation Comments SODIUM (BEAKER) (test code = 381) 135 meq/L 136-145 L POTASSIUM-STAT [id number] 13:03:00 Test Item Value Reference Range Interpretation Comments POTASSIUM (BEAKER) (test code = 4.3 meq/L 3.6-5.5 379) LACTIC ACID, [id number] 12:58:00 Test Item Value Reference Range Interpretation Comments LACTATE BLOOD 1.2 mmol/L 0.5-2.2 Specimen sligh tly ARTERIAL (2) (BEAKER) hemoly zed (test code = 2874) Chocolate Temperer ID - SHU CBLOOD GAS, [id number] 12:42:00 Test Item Value Reference Range Interpretation Comments PH ARTERIAL (BEAKER) (test code = 7.47 7.35-7.45 H 383) PCO2 ARTERIAL (BEAKER) (test code 33 mm Hg 35-45 L = 384) PO2 ARTERIAL (BEAKER) (test code 358 mm Hg 80-90 H = 385) O2 SATURATION ARTERIAL (BEAKER) 99.8 % 96.0-97.0 H (test code = 386) HCO3 ARTERIAL (BEAKER) (test code 25 mmol/L 21-29 = 388) BASE EXCESS ARTERIAL (BEAKER) -0.3 mmol/L -2.0-3.0 (test code = 387) PATIENT TEMPERATURE (BEAKER) 32.0 (test code = 1818) FIO2 (BEAKER) (test code = 1819) 70.0 GLUCOSE-STAT [id number] 12:42:00 Test Item Value Reference Range Interpretation Comments GLUCOSE RANDOM (BEAKER) (test code 209 mg/dL 70-110 H = 652) HGB/HCT (H&H) - STAT [id number] 12:42:00 Test Item Value Reference Range Interpretation Comments HEMOGLOBIN (BEAKER) (test code = 9.9 GM/DL 13.0-16.8 L 410) HEMATOCRIT (BEAKER) (test code = 29.0 % 40.0-50.0 L 411) SODIUM NA-STAT [id number] 12:41:00 Test Item Value Reference Range Interpretation Comments SODIUM (BEAKER) (test code = 381) 135 meq/L 136-145 L POTASSIUM-STAT [id number] 12:41:00 Test Item Value Reference Range Interpretation Comments POTASSIUM (BEAKER) (test code = 3.9 meq/L 3.6-5.5 379) LACTIC ACID, [id number] 12:39:00 Test Item Value Reference Range Interpretation Comments LACTATE BLOOD ARTERIAL (2) 0.9 mmol/L 0.5-2.2 (BEAKER) (test code = 2874) Chocolate Temperer ID - SHU CBLOOD GAS, [id number] 12:16:00 Test Item Value Reference Range Interpretation Comments PH ARTERIAL (BEAKER) (test code = 7.58 7.35-7.45 H 383) PCO2 ARTERIAL (BEAKER) (test code 25 mm Hg 35-45 L = 384) PO2 ARTERIAL (BEAKER) (test code = 336 mm Hg 80-90 H 385) O2 SATURATION ARTERIAL (BEAKER) 99.8 % 96.0-97.0 H (test code = 386) HCO3 ARTERIAL (BEAKER) (test code 25 mmol/L 21-29 = 388) BASE EXCESS ARTERIAL (BEAKER) 0.8 mmol/L -2.0-3.0 (test code = 387) PATIENT TEMPERATURE (BEAKER) (test 26.5 code = 1818) FIO2 (BEAKER) (test code = 1819) 70.0 GLUCOSE-STAT [id number] 12:16:00 Test Item Value Reference Range Interpretation Comments GLUCOSE RANDOM (BEAKER) (test code 197 mg/dL 70-110 H = 652) HGB/HCT (H&H) - STAT [id number] 12:16:00 Test Item Value Reference Range Interpretation Comments HEMOGLOBIN (BEAKER) (test code = 8.7 GM/DL 13.0-16.8 L 410) HEMATOCRIT (BEAKER) (test code = 26.0 % 40.0-50.0 L 411) SODIUM NA-STAT [id number] 12:14:00 Test Item Value Reference Range Interpretation Comments SODIUM (BEAKER) (test code = 381) 137 meq/L 136-145 POTASSIUM-STAT [id number] 12:14:00 Test Item Value Reference Range Interpretation Comments POTASSIUM (BEAKER) (test code = 4.1 meq/L 3.6-5.5 379) POTASSIUM-STAT [id number] 11:44:00 Test Item Value Reference Range Interpretation Comments POTASSIUM (BEAKER) (test code = 3.9 meq/L 3.6-5.5 379) BLOOD GAS, [id number] 11:44:00 Test Item Value Reference Range Interpretation Comments PH ARTERIAL (BEAKER) (test code = 7.44 7.35-7.45 383) PCO2 ARTERIAL (BEAKER) (test code 37 mm Hg 35-45 = 384) PO2 ARTERIAL (BEAKER) (test code = 290 mm Hg 80-90 H 385) O2 SATURATION ARTERIAL (BEAKER) 99.7 % 96.0-97.0 H (test code = 386) HCO3 ARTERIAL (BEAKER) (test code 28 mmol/L 21-29 = 388) BASE EXCESS ARTERIAL (BEAKER) 0.2 mmol/L -2.0-3.0 (test code = 387) PATIENT TEMPERATURE (BEAKER) (test 26.3 code = 1818) FIO2 (BEAKER) (test code = 1819) 50.0 SODIUM NA-STAT [id number] 11:44:00 Test Item Value Reference Range Interpretation Comments SODIUM (BEAKER) (test code = 381) 134 meq/L 136-145 L GLUCOSE-STAT [id number] 11:44:00 Test Item Value Reference Range Interpretation Comments GLUCOSE RANDOM (BEAKER) (test code 188 mg/dL 70-110 H = 652) HGB/HCT (H&H) - STAT [id number] 11:44:00 Test Item Value Reference Range Interpretation Comments HEMOGLOBIN (BEAKER) (test code = 10.3 GM/DL 13.0-16.8 L 410) HEMATOCRIT (BEAKER) (test code = 30.0 % 40.0-50.0 L 411) ANESTHESIA PERIPHERAL [id number] 11:06:29Robi Patel MD 09/01/2020 11:07 AMPeripheral Block Patient location during procedure: OR Procedure Indication: at surgeon's request and post-op pain management Preanesthetic ChecklistCompleted: patient identified, pre-op evaluation, timeout performed, IV checked, risks and benefits discussed, monitors and equipment checked, anesthesia consent given and maximum sterile barriers were used: cap, mask, s terile gown, sterile gloves, and large sterile sheet StaffingAnesthesiologist: Robi Patel MDOther anesthesia staff: Astrid Machado PrepPrep: chlorhexidine gluconate and isopropyl alcoholProcedures: sterile gloves, surgical mask, surgical hat, sterile technique and prep and sterile drape applie d Peripheral Nerve BlockPatient position: sittingPatient monitoring: BP and [id number]: rightAnesthesia block type: JAE.Injection technique: catheterultrasound guided - in plane, prescan was completed prior to procedure and needle tip was visualized throughout the entire procedureultrasound image n ot savedBlock Dose: ropivicaine and catheterInfiltration strength: 0.5 %Dose: 20 mL NeedleNeedle type: TuohyNeedle gauge: 17 GNeedle Localization: US guided Hydrodissection? yesCatheter tunneledDressing: Occlusive dressing applied in sterile fashion and Dermabond applied at the catheter insertion siteCHI [facility] HospitalH[facility]/H[facility] ([facility]&H) - STAT [id number] 11:00:00 Test Item Value Reference Range Interpretation Comments HEMOGLOBIN (BEAKER) (test code = 9.1 GM/DL 13.0-16.8 L 410) HEMATOCRIT (BEAKER) (test code = 27.0 % 40.0-50.0 L 411) BLOOD GAS, [id number] 11:00:00 Test Item Value Reference Range Interpretation Comments PH ARTERIAL (BEAKER) (test code = 7.35 7.35-7.45 383) PCO2 ARTERIAL (BEAKER) (test code 49 mm Hg 35-45 H = 384) PO2 ARTERIAL (BEAKER) (test code = 413 mm Hg 80-90 H 385) O2 SATURATION ARTERIAL (BEAKER) 99.8 % 96.0-97.0 H (test code = 386) HCO3 ARTERIAL (BEAKER) (test code 28 mmol/L 21-29 = 388) BASE EXCESS ARTERIAL (BEAKER) 0.8 mmol/L -2.0-3.0 (test code = 387) PATIENT TEMPERATURE (BEAKER) (test 31.2 code = 1818) FIO2 (BEAKER) (test code = 1819) 70.0 GLUCOSE-STAT [id number] 11:00:00 Test Item Value Reference Range Interpretation Comments GLUCOSE RANDOM (BEAKER) (test code 178 mg/dL 70-110 H = 652) SODIUM NA-STAT [id number] 10:58:00 Test Item Value Reference Range Interpretation Comments SODIUM (BEAKER) (test code = 381) 137 meq/L 136-145 POTASSIUM-STAT [id number] 10:58:00 Test Item Value Reference Range Interpretation Comments POTASSIUM (BEAKER) (test code = 3.6 meq/L 3.6-5.5 379) BLOOD GAS, [id number] 09:17:00 Test Item Value Reference Range Interpretation Comments PH ARTERIAL (BEAKER) (test code = 7.40 7.35-7.45 383) PCO2 ARTERIAL (BEAKER) (test code 39 mm Hg 35-45 = 384) PO2 ARTERIAL (BEAKER) (test code 373 mm Hg 80-90 H = 385) O2 SATURATION ARTERIAL (BEAKER) 99.8 % 96.0-97.0 H (test code = 386) HCO3 ARTERIAL (BEAKER) (test code 24 mmol/L 21-29 = 388) BASE EXCESS ARTERIAL (BEAKER) -0.9 mmol/L -2.0-3.0 (test code = 387) PATIENT TEMPERATURE (BEAKER) 35.5 (test code = 1818) FIO2 (BEAKER) (test code = 1819) 100.0 POTASSIUM-STAT [id number] 09:17:00 Test Item Value Reference Range Interpretation Comments POTASSIUM (BEAKER) (test code = 2.9 meq/L 3.6-5.5 L 379) GLUCOSE-STAT [id number] 09:17:00 Test Item Value Reference Range Interpretation Comments GLUCOSE RANDOM (BEAKER) (test code 120 mg/dL 70-110 H = 652) HGB/HCT (H&H) - STAT [id number] 09:17:00 Test Item Value Reference Range Interpretation Comments HEMOGLOBIN (BEAKER) (test code = 9.7 GM/DL 13.0-16.8 L 410) HEMATOCRIT (BEAKER) (test code = 29.0 % 40.0-50.0 L 411) SODIUM NA-STAT [id number] 09:16:00 Test Item Value Reference Range Interpretation Comments SODIUM (BEAKER) (test code = 381) 139 meq/L 136-145 POCT-GLUCOSE [id number] 07:21:00 Test Item Value Reference Range Interpretation Comments POC-GLUCOSE METER 131 mg/dL 70-110 H : TESTED A T [facility] 6720 (BEAKER) (test code [facility], = 1538) [address]: Chocolate Temperer/Techni hilary ID = [id number] for JORD AN, LACRYSTAL [id number] 00:00:00Ordered by an unspecified provider.[facility] Center[facility] CATH REPORT - [id number] 12:42:05Ordered by an unspecified provider.[facility] CenterCarotid doppler bilateral 2020-08-28 07:37:30Ejection [facility] ECHO HEARTLAB MKCKESSON CPACSRight Impression1. There is <50% diameter reduction (approximately 24% by 2-D measurement)in the internal carotid artery with a peak velocity of 92.6 cm/sec andheterogeneous plaque.2. There is non-occluding plaque in the external carotid artery.3. There is non-occluding plaque in the common carotid artery.4. The vertebral artery flow is antegrade and normal.5. The subclavian artery is within normal limits where visualized.Left Impression1. There is <50% diameter reduction (approximately 27% by 2-D measurement)in the internal carotid artery with a peak velocity of 83.3 cm/sec andheterogeneous plaque.2. There is non- occluding plaque in the external carotid artery.3. There is non-occluding plaque in the common carotid artery.4. The vertebral artery flow is antegrade and normal.5. The subclavian artery is within normal limits where visualized. Conclusions Summary Carotid duplex scanning and color flow imaging were performed bilaterally. The arteries were adequately visualized. The bilateral internal carotid arteries had <50% hemodynamically insignificant stenosis (approximately 24% by 2-D measurement on the right, approximately 27% by2-D measurement on the left) with heterogeneous plaque. The vertebral artery flow was antegrade and normal bilaterally. The subclavian arteries were patent with normal flow bilaterally where visualized. Signature Velocities are measured in cm/s ; Diameters are measured in cm Carotid Right Measurements+ +----+----+-----+ + +---- -------+!Location !PSV !EDV !Angle!%Stenosis 2D!%Stenosis Doppler!Tortuosity !+ +----+----+-- ---+ + + +!Prox CCA !77.4!11.1!60 ! ! ! !+ +----+----+-----+ + + +!Di st CCA !46.8!11.4!60 ! ! ! !+ +----+----+- ----+ + + +!Prox ICA !49.5!15.7!60 ! ! ! !+ +----+----+-----+ + + +!D ist ICA !92.6!27 !60 ! ! ! !+ +----+----+ -----+ + + +!Prox ECA !102 !11.8!60 ! ! ! !+ +----+----+-----+ + + +! Vertebral !72.7!22.3!60 ! ! ! !+ +----+---- +-----+ + + +!Prox Subclavian!93.2!19.9!60 ! ! ! !+ +----+----+-----+ + + + - There is antegrade vertebral flow noted on the right side. - Additional Measurements:ICAPSV/CCAPSV 1.98.ICAEDV/CCAEDV 2.43. Carotid Left Measurements+ +----+----+-----+ + + +!Location !PSV !EDV !Angle!%Stenosis 2D!%Stenosis Doppler!Tortuosity !+ +----+----+-----+ + + +!Pr ox CCA !103 !14.7!60 ! ! ! !+ +----+----+-----+ + + +!Dist CCA !59.8!11.1!60 ! ! ! !+ +----+----+-----+ + + +!Pr ox ICA !71.5!16.4!60 ! ! ! !+ +----+----+-----+ -+ + +!Dist ICA !83.3!24 !60 ! ! ! !+ +----+----+-----+ + + +!Pr ox ECA !113 !11.7!60 ! ! ! !+ +----+----+-----+ --+ + +!Vertebral !52.6!5.89!60 ! ! ! !+ +----+----+-----+ + + +!Pr ox Subclavian!88 !17.3!60 ! ! ! !+ +----+----+-----+ + + + - There is antegrade vertebral flow noted on the left side. -Additional Measurements:ICAPSV/CCAPSV 1.39.ICAEDV/CCAEDV 1.63. Interface, External Ris In - 08/28/2020 7:37 AM CDTPV LAB - Carotid Duplex Study Demographics Patient Name ARIELLA PARKER Date of Study 08/27/2020 APRIL Age 70 Visit Number [id number] Gender Male Accession Number [id number] Date of 1950 Referring [place] Room Number 1414 ysician Sales Expert Codie Barger [facility] Interpreting Chelsea Caputo, Physician ProcedureType of Study: Cerebral: Carotid, CAROTID DOPPLER,BILATERAL. Indications for Study:Pre op.Patient Status:STAT.Study Location:Vascular Lab.Technical Quality:Adequate visualization.Risk FactorsHistory of Disease+ + + +!Diagnosis !Date !Comments !+ + + +!Hi story/Risk!10/16/2017!Aortic stenosis, Respiratory insufficiency, !!Factors: ! !Anemia, Thrombocytopenia, A-Fib. !+ + + --------+ImpressionsRight Impression1. There is <50% diameter reduction (approximately 24% by 2-Dmeasurement)in the internal carotid artery with a peak velocity of 92.6 cm/sec andheterogeneous plaque.2. There is non-occluding plaque in the external carotid artery.3. There is non-occluding plaque in the common carotid artery.4. The vertebral artery flow is antegrade and normal.5. The subclavian artery is within normal limits where visualized.Left Impression1. There is <50% diameter reduction (approximately 27% by 2-D measurement)in the internal carotid artery with a peak velocity of 83.3 cm/sec andheterogeneous plaque.2. There is non-occluding plaque in the external carotid artery.3. There is non-occluding plaque in the common carotid artery.4. The vertebral artery flow is antegrade and normal.5. The subclavian artery is within normal limits where visualized. Conclusions Summary Carotid duplex scanning and color flow imaging were performed bilaterally. The arteries were adequately visualized. The bilateral internal carotid arteries had <50% hemodynamically insignificant stenosis (approximately 24% by 2-D measurement on the right, approximately 27% by 2-D measurement on the left) with heterogeneous plaque. The vertebral artery flow was antegrade and normal bilaterally. The subclavian arteries were patent with normal flow bilaterally where visualized. Signature Velocities are measured in cm/s ; Diameters are measured in cmCarotid Right Measurements+ ----+----+----+-----+ + + +!Location !PSV !EDV !Angle!%Stenosis 2D!%Stenosis Doppler!Tortuosity !+ +----+----+-----+ + -+ +!Prox CCA !77.4!11.1!60 ! ! ! !+ -----+----+----+-----+ + + +!Dist CCA !46.8!11.4!60 ! ! ! !+ +----+----+-----+ + --+ +!Prox ICA !49.5!15.7!60 ! ! ! !+--------- ------+----+----+-----+ + + +!Dist ICA !92.6!27 !60 ! ! ! !+ +----+----+-----+ + ---+ +!Prox ECA !102 !11.8!60 ! ! ! !+-------- -------+----+----+-----+ + + +!Vertebral !72.7!22.3!60 ! ! ! !+ +----+----+-----+ + ----+ +!Prox Subclavian!93.2!19.9!60 ! ! ! !+------- --------+----+----+-----+ + + + - There is antegrade vertebralflow noted on the right side. - Additional Measurements:ICAPSV/CCAPSV 1.98.ICAEDV/CCAEDV 2.43.Carotid Left Measurements+ +----+----+-----+ + +---- -------+!Location !PSV !EDV !Angle!%Stenosis 2D!%Stenosis Doppler!Tortuosity !+ +----+----+---- -+ + + +!Prox CCA !103 !14.7!60 ! ! ! !+ +----+----+-----+ + + +!Di st CCA !59.8!11.1!60 ! ! ! !+ +----+----+--- --+ + + +!Prox ICA !71.5!16.4!60 ! ! ! !+ +----+----+-----+ + + +!Di st ICA !83.3!24 !60 ! ! ! !+ +----+----+-- ---+ + + +!Prox ECA !113 !11.7!60 ! ! ! !+ +----+----+-----+ + + +!Ve rtebral !52.6!5.89!60 ! ! ! !+ +----+----+- ----+ + + +!Prox Subclavian!88 !17.3!60 ! ! ! !+ +----+----+-----+ + + +- There is antegrade vertebral flow noted on the left side. - Additional Measurements:ICAPSV/CCAPSV1.39.ICAEDV/CCAEDV 1.63.[facility] SARS-COV2/RT-PCR ([facility])2020-08-27 15:29:00 Test Item Value Reference Range Interpretation Comments SARS-COV2/RT-PCR (test Negative Not Detected, Negative, code = 5773406) See external report for linked test SARS-COV-2 PERFORMING LAB [facility] (test code = 6390389) Negative result for this test determines that SARS-CoV-2 RNA was not present in the specimen above the Limit of Detection (LOD). However, Negative results do not preclude SARS-CoV-2 infection and should not be used as the sole basis for treatment or patient management decisions. Negative results mustbe combined with clinical observations, patient history, and epidemiological information. A false negative result may occur if a specimen is improperly collected, transported or handled. A false negative result should be considered if patient's recent exposures or clinical presentation indicate that COVID-19 (SARS-CoV-2) is likely and diagnostic tests for other causes of illness are negative. Re-testing should be considered in cases of suspected false negatives.The limit of detection for this assay is 800 copies/mL.This SARS CoV-2 test is a real-time RT-PCR test intended for the qualitative detection of nucleic acid from SARS-CoV-2 in a nasopharyngeal swab specimen collected from individuals susp ected of COVID-19 by their healthcare provider.This test has not been Food and Drug Administration (FDA) cleared or approved. This is a modified version of an approved Emergency Use Authorization (EUA) and is in the process of review by the FDA. Once authorized by the FDA, the issued EUA will be effective until the declaration that circumstances exist justifying the authorization of the emergency use of in vitro diagnostic tests for detection and/or diagnosis of COVID-19 is terminated under Section 564(b)(2) of the Act or the EUA is revoked under Section 564(g) of the Act.Fact Sheet for Healthcare Providers:https://www.[employer]/sites/default/files/product/documents/Fact_Shee m_KM_Smqkucupd_Twif_YGYZ-UxU-9.pdfFact Sheet for Healthcare Patients:https://www.[employer].com/sites/default/files/product/ documents/Pjnh_Ejjdd_Fbmjieqx_Gerd_DMSU-QjL-6.pdfPerforming Laboratory:[facility], [place] [address]YVLW-UMU4/RT-PCR ([facility])2020-08-27 15:29:00 Test Item Value Reference Range Interpretation Comments SARS-COV2/RT-PCR (test Negative Not Detected, Negative, code = 3171431) See external report for linked test SARS-COV-2 PERFORMING LAB [facility] (test code = 4036054) Negative result for this test determines that SARS-CoV-2 RNA was not present in the specimen above the Limit of Detection (LOD). However, Negative results do not preclude SARS-CoV-2 infection and should not be used as the sole basis for treatment or patient management decisions. Negative results mustbe combined with clinical observations, patient history, and epidemiological information. A false negative result may occur if a specimen is improperly collected, transported or handled. A false negative result should be considered if patient's recent exposures or clinical presentation indicate that COVID-19 (SARS-CoV-2) is likely and diagnostic tests for other causes of illness are negative. Re-testing should be considered in cases of suspected false negatives.The limit of detection for this assay is 800 copies/mL.This SARS CoV-2 test is a real-time RT-PCR test intended for the qualitative detection of nucleic acid from SARS-CoV-2 in a nasopharyngeal swab specimen collected from individuals susp ected of COVID-19 by their healthcare provider.This test has not been Food and Drug Administration (FDA) cleared or approved. This is a modified version of an approved Emergency Use Authorization (EUA) and is in the process of review by the FDA. Once authorized by the FDA, the issued EUA will be effective until the declaration that circumstances exist justifying the authorization of the emergency use of in vitro diagnostic tests for detection and/or diagnosis of COVID-19 is terminated under Section 564(b)(2) of the Act or the EUA is revoked under Section 564(g) of the Act.Fact Sheet for Healthcare Providers:https://www.[employer]/sites/default/files/product/documents/Fact_Shee j_NC_Wyszgnqjn_Jpdw_WLRS-MsX-7.pdfFact Sheet for Healthcare Patients:https://www.[employer].com/sites/default/files/product/ documents/Gsgu_Sjkia_Fialregp_Zwjj_PPXX-KpW-5.pdfPerforming Laboratory:[facility], [place] [address]VUSZ-KMFWEBP METER 2020-08-27 09:09:00 Test Item Value Reference Range Interpretation Comments POC-GLUCOSE METER 157 mg/dL 70-110 H : TESTED A T [facility] 6720 (MALIK) (test code = [place], 1538) [address]: Chocolate Temperer/Techni hilary ID = [id number] for MAI REAGAN BASIC METABOLIC [id number] 04:59:00 Test Item Value Reference Range Interpretation Comments SODIUM (BEAKER) 137 meq/L 136-145 (test code = 381) POTASSIUM (BEAKER) 3.5 meq/L 3.5-5.1 (test code = 379) CHLORIDE (BEAKER) 97 meq/L 98-107 L (test code = 382) CO2 (BEAKER) (test 30 meq/L 22-29 H code = 355) BLOOD UREA NITROGEN 24 mg/dL 7-21 H (BEAKER) (test code = 354) CREATININE (BEAKER) 1.10 mg/dL 0.57-1.25 (test code = 358) GLUCOSE RANDOM 142 mg/dL 70-105 H (BEAKER) (test code = 652) CALCIUM (BEAKER) 8.7 mg/dL 8.4-10.2 (test code = 697) EGFR (BEAKER) (test 66 mL/min/1.73 ESTIMA SUSIE GFR IS code = 1092) sq m NOT ACCURATE CREATININE CLEARANCE IN PREDICTING GLOMERULAR FILTRATION RATE . ESTIMATED GFR I S NOT APPLICABLE FOR DIALYSIS PATIEN TS. Chocolate Temperer ID - PIAYA [id number] 04:59:00 Test Item Value Reference Range Interpretation Comments MAGNESIUM (BEAKER) (test code = 1.9 mg/dL 1.6-2.6 627) Chocolate Temperer ID - PIAYA LCBC W/PLT COUNT & AUTO [id number] 04:31:00 Test Item Value Reference Range Interpretation Comments WHITE BLOOD CELL COUNT (BEAKER) 8.3 K/ L 3.5-10.5 (test code = 775) RED BLOOD CELL COUNT (BEAKER) 4.06 M/ L 4.63-6.08 L (test code = 761) HEMOGLOBIN (BEAKER) (test code = 11.5 GM/DL 13.7-17.5 L 410) HEMATOCRIT (BEAKER) (test code = 35.2 % 40.1-51.0 L 411) MEAN CORPUSCULAR VOLUME (BEAKER) 86.7 fL 79.0-92.2 (test code = 753) MEAN CORPUSCULAR HEMOGLOBIN 28.3 pg 25.7-32.2 (BEAKER) (test code = 751) MEAN CORPUSCULAR HEMOGLOBIN CONC 32.7 GM/DL 32.3-36.5 (BEAKER) (test code = 752) RED CELL DISTRIBUTION WIDTH 15.5 % 11.6-14.4 H (BEAKER) (test code = 412) PLATELET COUNT (BEAKER) (test 111 K/CU MM 150-450 L code = 756) MEAN PLATELET VOLUME (BEAKER) 11.7 fL 9.4-12.4 (test code = 754) NUCLEATED RED BLOOD CELLS 0 /100 WBC 0-0 (BEAKER) (test code = 413) NEUTROPHILS RELATIVE PERCENT 74 % (BEAKER) (test code = 429) LYMPHOCYTES RELATIVE PERCENT 13 % (BEAKER) (test code = 430) MONOCYTES RELATIVE PERCENT 11 % (BEAKER) (test code = 431) EOSINOPHILS RELATIVE PERCENT 1 % (BEAKER) (test code = 432) BASOPHILS RELATIVE PERCENT 1 % (BEAKER) (test code = 437) NEUTROPHILS ABSOLUTE COUNT 6.19 K/ L 1.78-5.38 H (BEAKER) (test code = 670) LYMPHOCYTES ABSOLUTE COUNT 1.05 K/ L 1.32-3.57 L (BEAKER) (test code = 414) MONOCYTES ABSOLUTE COUNT (BEAKER) 0.87 K/ L 0.30-0.82 H (test code = 415) EOSINOPHILS ABSOLUTE COUNT 0.11 K/ L 0.04-0.54 (BEAKER) (test code = 416) BASOPHILS ABSOLUTE COUNT (BEAKER) 0.05 K/ L 0.01-0.08 (test code = 417) IMMATURE GRANULOCYTES-RELATIVE 1 % 0-1 PERCENT (BEAKER) (test code = 2801) POCT-GLUCOSE [id number] 22:15:00 Test Item Value Reference Range Interpretation Comments POC-GLUCOSE METER 229 mg/dL 70-110 H : TESTED A T [facility] 6720 (BEAKER) (test code = [facility], 1538) 872[address]: Chocolate Temperer/Techni hilayr ID = [id number] for Niecy Becerra POCT-GLUCOSE [id number] 18:00:00 Test Item Value Reference Range Interpretation Comments POC-GLUCOSE METER 121 mg/dL 70-110 H : TESTED A T [facility] 6720 (BEAKER) (test code = [facility], 1538) 97775: Chocolate Temperer/Techni hilary ID = [id number] for MAI REAGAN POCT-GLUCOSE [id number] 13:44:00 Test Item Value Reference Range Interpretation Comments POC-GLUCOSE METER 170 mg/dL 70-110 H : TESTED A T [facility] 6720 (BEAKER) (test code = [facility], 1538) [id number]: Chocolate Temperer/Techni hilary ID = [id number] for MAI REAGAN POCT-GLUCOSE [id number] 09:08:00 Test Item Value Reference Range Interpretation Comments POC-GLUCOSE METER 157 mg/dL 70-110 H : TESTED A T [facility] 6720 (BEAKER) (test code = [facility], 1538) 93177: Chocolate Temperer/Techni hilary ID = [id number] for MAI REAGAN COMPREHENSIVE METABOLIC [id number] 04:56:00 Test Item Value Reference Range Interpretation Comments TOTAL PROTEIN 6.5 gm/dL 6.0-8.3 (BEAKER) (test code = 770) ALBUMIN (BEAKER) 3.8 g/dL 3.5-5.0 (test code = 1145) ALKALINE PHOSPHATASE 72 U/L 40-150 (BEAKER) (test code = 346) BILIRUBIN TOTAL 1.2 mg/dL 0.2-1.2 (BEAKER) (test code = 377) SODIUM (BEAKER) (test 137 meq/L 136-145 code = 381) POTASSIUM (BEAKER) 3.8 meq/L 3.5-5.1 (test code = 379) CHLORIDE (BEAKER) 95 meq/L 98-107 L (test code = 382) CO2 (BEAKER) (test 31 meq/L 22-29 H code = 355) BLOOD UREA NITROGEN 24 mg/dL 7-21 H (BEAKER) (test code = 354) CREATININE (BEAKER) 1.26 mg/dL 0.57-1.25 H (test code = 358) GLUCOSE RANDOM 128 mg/dL 70-105 H (BEAKER) (test code = 652) CALCIUM (BEAKER) 8.8 mg/dL 8.4-10.2 (test code = 697) AST (SGOT) (BEAKER) 32 U/L 5-34 (test code = 353) ALT (SGPT) (BEAKER) 74 U/L 6-55 H (test code = 347) EGFR (BEAKER) (test 57 mL/min/1.73 ESTIMA SUSIE GFR IS code = 1092) sq m NOT ACCURATE CREATININE CLEARANCE IN PREDICTING GLOMERULAR FILTRATION RATE . ESTIMATED GFR I S NOT APPLICABLE FOR DIALYSIS PATIEN TS. Chocolate Temperer ID - CECILE [id number] 04:56:00 Test Item Value Reference Range Interpretation Comments MAGNESIUM (BEAKER) (test code = 1.8 mg/dL 1.6-2.6 627) Chocolate Temperer ID - CECILE MCBC W/PLT COUNT & AUTO [id number] 04:53:00 Test Item Value Reference Range Interpretation Comments WHITE BLOOD CELL COUNT (BEAKER) 11.3 K/ L 3.5-10.5 H (test code = 775) RED BLOOD CELL COUNT (BEAKER) 4.39 M/ L 4.63-6.08 L (test code = 761) HEMOGLOBIN (BEAKER) (test code = 12.5 GM/DL 13.7-17.5 L 410) HEMATOCRIT (BEAKER) (test code = 38.0 % 40.1-51.0 L 411) MEAN CORPUSCULAR VOLUME (BEAKER) 86.6 fL 79.0-92.2 (test code = 753) MEAN CORPUSCULAR HEMOGLOBIN 28.5 pg 25.7-32.2 (BEAKER) (test code = 751) MEAN CORPUSCULAR HEMOGLOBIN CONC 32.9 GM/DL 32.3-36.5 (BEAKER) (test code = 752) RED CELL DISTRIBUTION WIDTH 15.3 % 11.6-14.4 H (BEAKER) (test code = 412) PLATELET COUNT (BEAKER) (test 125 K/CU MM 150-450 L code = 756) MEAN PLATELET VOLUME (BEAKER) 11.6 fL 9.4-12.4 (test code = 754) NUCLEATED RED BLOOD CELLS 0 /100 WBC 0-0 (BEAKER) (test code = 413) NEUTROPHILS RELATIVE PERCENT 76 % (BEAKER) (test code = 429) LYMPHOCYTES RELATIVE PERCENT 13 % (BEAKER) (test code = 430) MONOCYTES RELATIVE PERCENT 9 % (BEAKER) (test code = 431) EOSINOPHILS RELATIVE PERCENT 1 % (BEAKER) (test code = 432) BASOPHILS RELATIVE PERCENT 0 % (BEAKER) (test code = 437) NEUTROPHILS ABSOLUTE COUNT 8.57 K/ L 1.78-5.38 H (BEAKER) (test code = 670) LYMPHOCYTES ABSOLUTE COUNT 1.42 K/ L 1.32-3.57 (BEAKER) (test code = 414) MONOCYTES ABSOLUTE COUNT (BEAKER) 0.98 K/ L 0.30-0.82 H (test code = 415) EOSINOPHILS ABSOLUTE COUNT 0.16 K/ L 0.04-0.54 (BEAKER) (test code = 416) BASOPHILS ABSOLUTE COUNT (BEAKER) 0.04 K/ L 0.01-0.08 (test code = 417) IMMATURE GRANULOCYTES-RELATIVE 1 % 0-1 PERCENT (BEAKER) (test code = 2801) CALCIUM, [id number] 04:35:00 Test Item Value Reference Range Interpretation Comments CALCIUM IONIZED (BEAKER) (test 1.07 mmol/L 1.12-1.27 L code = 698) PH, BLOOD (BEAKER) (test code = 7.39 1810) POCT-GLUCOSE [id number] 21:29:00 Test Item Value Reference Range Interpretation Comments POC-GLUCOSE METER 211 mg/dL 70-110 H : TESTED A T [facility] 6720 (BEAKER) (test code = [facility], 1538) 77795: Chocolate Temperer/Techni hilary ID = [id number] for Niecy Becerra POCT-GLUCOSE [id number] 18:09:00 Test Item Value Reference Range Interpretation Comments POC-GLUCOSE METER 175 mg/dL 70-110 H : TESTED A T [facility] 6720 (BEAKER) (test code = [facility], 1538) 21801: Chocolate Temperer/Techni hilary ID = [id number] for Igbalajobi, She jesse POCT-GLUCOSE [id number] 13:03:00 Test Item Value Reference Range Interpretation Comments POC-GLUCOSE METER 187 mg/dL 70-110 H : TESTED A T [facility] 6720 (BEAKER) (test code = [facility], 1538) 80953: Chocolate Temperer/Techni hilary ID = [id number] for Igbalajobi, She jesse POCT-GLUCOSE [id number] 08:57:00 Test Item Value Reference Range Interpretation Comments POC-GLUCOSE METER 128 mg/dL 70-110 H : TESTED A T [facility] 6720 (BEAKER) (test code = [facility] [place], 1538) 846[address]: Chocolate Temperer/Techni hilary ID = [id number] for Sadie Graham BASIC METABOLIC [id number] 05:49:00 Test Item Value Reference Range Interpretation Comments SODIUM (BEAKER) 134 meq/L 136-145 L (test code = 381) POTASSIUM (BEAKER) 3.7 meq/L 3.5-5.1 (test code = 379) CHLORIDE (BEAKER) 97 meq/L 98-107 L (test code = 382) CO2 (BEAKER) (test 26 meq/L 22-29 code = 355) BLOOD UREA NITROGEN 23 mg/dL 7-21 H (BEAKER) (test code = 354) CREATININE (BEAKER) 1.17 mg/dL 0.57-1.25 (test code = 358) GLUCOSE RANDOM 128 mg/dL 70-105 H (BEAKER) (test code = 652) CALCIUM (BEAKER) 8.9 mg/dL 8.4-10.2 (test code = 697) EGFR (BEAKER) (test 62 mL/min/1.73 ESTIMA SUSIE GFR IS code = 1092) sq m NOT ACCURATE CREATININE CLEARANCE IN PREDICTING GLOMERULAR FILTRATION RATE . ESTIMATED GFR I S NOT APPLICABLE FOR DIALYSIS PATIEN TS. Chocolate Temperer ID - [id number] 05:49:00 Test Item Value Reference Range Interpretation Comments MAGNESIUM (BEAKER) (test code = 1.8 mg/dL 1.6-2.6 627) Chocolate Temperer ID - DBCBC W/PLT COUNT & AUTO [id number] 05:17:00 Test Item Value Reference Range Interpretation Comments WHITE BLOOD CELL COUNT (BEAKER) 10.4 K/ L 3.5-10.5 (test code = 775) RED BLOOD CELL COUNT (BEAKER) 4.31 M/ L 4.63-6.08 L (test code = 761) HEMOGLOBIN (BEAKER) (test code = 12.1 GM/DL 13.7-17.5 L 410) HEMATOCRIT (BEAKER) (test code = 38.2 % 40.1-51.0 L 411) MEAN CORPUSCULAR VOLUME (BEAKER) 88.6 fL 79.0-92.2 (test code = 753) MEAN CORPUSCULAR HEMOGLOBIN 28.1 pg 25.7-32.2 (BEAKER) (test code = 751) MEAN CORPUSCULAR HEMOGLOBIN CONC 31.7 GM/DL 32.3-36.5 L (BEAKER) (test code = 752) RED CELL DISTRIBUTION WIDTH 15.1 % 11.6-14.4 H (BEAKER) (test code = 412) PLATELET COUNT (BEAKER) (test 124 K/CU MM 150-450 L code = 756) MEAN PLATELET VOLUME (BEAKER) 11.5 fL 9.4-12.4 (test code = 754) NUCLEATED RED BLOOD CELLS 0 /100 WBC 0-0 (BEAKER) (test code = 413) NEUTROPHILS RELATIVE PERCENT 70 % (BEAKER) (test code = 429) LYMPHOCYTES RELATIVE PERCENT 18 % (BEAKER) (test code = 430) MONOCYTES RELATIVE PERCENT 9 % (BEAKER) (test code = 431) EOSINOPHILS RELATIVE PERCENT 1 % (BEAKER) (test code = 432) BASOPHILS RELATIVE PERCENT 1 % (BEAKER) (test code = 437) NEUTROPHILS ABSOLUTE COUNT 7.30 K/ L 1.78-5.38 H (BEAKER) (test code = 670) LYMPHOCYTES ABSOLUTE COUNT 1.88 K/ L 1.32-3.57 (BEAKER) (test code = 414) MONOCYTES ABSOLUTE COUNT (BEAKER) 0.95 K/ L 0.30-0.82 H (test code = 415) EOSINOPHILS ABSOLUTE COUNT 0.14 K/ L 0.04-0.54 (BEAKER) (test code = 416) BASOPHILS ABSOLUTE COUNT (BEAKER) 0.06 K/ L 0.01-0.08 (test code = 417) IMMATURE GRANULOCYTES-RELATIVE 1 % 0-1 PERCENT (BEAKER) (test code = 2801) POCT-GLUCOSE [id number] 18:07:00 Test Item Value Reference Range Interpretation Comments POC-GLUCOSE METER 161 mg/dL 70-110 H : TESTED [place] [facility] 6720 (BEAKER) (test code = [facility] [place], 1538) 65[address]: Chocolate Temperer/Techni hilary ID = [id number] for Sadie Graham SARS-COV2/RT-PCR ([facility])2020-08-24 13:59:00 Test Item Value Reference Range Interpretation Comments SARS-COV2/RT-PCR (test Negative Not Detected, Negative, code = 6939957) See external report for linked test SARS-COV-2 PERFORMING LAB [facility] (test code = 4809129) Negative result for this test determines that SARS-CoV-2 RNA was not present in the specimen above the Limit of Detection (LOD). However, Negative results do not preclude SARS-CoV-2 infection and should not be used as the sole basis for treatment or patient management decisions. Negative results mustbe combined with clinical observations, patient history, and epidemiological information. A false negative result may occur if a specimen is improperly collected, transported or handled. A false negative result should be considered if patient's recent exposures or clinical presentation indicate that COVID-19 (SARS-CoV-2) is likely and diagnostic tests for other causes of illness are negative. Re-testing should be considered in cases of suspected false negatives.The limit of detection for this assay is 800 copies/mL.This SARS CoV-2 test is a real-time RT-PCR test intended for the qualitative detection of nucleic acid from SARS-CoV-2 in a nasopharyngeal swab specimen collected from individuals susp ected of COVID-19 by their healthcare provider.This test has not been Food and Drug Administration (FDA) cleared or approved. This is a modified version of an approved Emergency Use Authorization (EUA) and is in the process of review by the FDA. Once authorized by the FDA, the issued EUA will be effective until the declaration that circumstances exist justifying the authorization of the emergency use of in vitro diagnostic tests for detection and/or diagnosis of COVID-19 is terminated under Section 564(b)(2) of the Act or the EUA is revoked under Section 564(g) of the Act.Fact Sheet for Healthcare Providers:https://www.[employer]/sites/default/files/product/documents/Fact_Shee m_ON_Cmssbfdna_Gyjr_BCVQ-BkJ-2.pdfFact Sheet for Healthcare Patients:https://www.[employer].com/sites/default/files/product/ documents/Sgar_Rgmle_Csaecres_Sxmn_ACPE-BhD-1.pdfPerforming Laboratory:[facility], [place] [address]GVPH-GNCXJIB METER 2020-08-24 12:00:00 Test Item Value Reference Range Interpretation Comments POC-GLUCOSE METER 247 mg/dL 70-110 H : TESTED A T [facility] 6720 (BEAKER) (test code = [facility], 1538) 50058: Chocolate Temperer/Techni hilary ID = [id number] for Leilani Cardoso POCT-GLUCOSE [id number] 08:05:00 Test Item Value Reference Range Interpretation Comments POC-GLUCOSE METER 129 mg/dL 70-110 H : TESTED A T [facility] 6720 (BEAKER) (test code = [facility], 1538) 06466: Chocolate Temperer/Techni hilary ID = [id number] for Leilani Cardoso BASIC METABOLIC [id number] 04:51:00 Test Item Value Reference Range Interpretation Comments SODIUM (BEAKER) 139 meq/L 136-145 (test code = 381) POTASSIUM (BEAKER) 4.2 meq/L 3.5-5.1 (test code = 379) CHLORIDE (BEAKER) 102 meq/L 98-107 (test code = 382) CO2 (BEAKER) (test 27 meq/L 22-29 code = 355) BLOOD UREA NITROGEN 18 mg/dL 7-21 (BEAKER) (test code = 354) CREATININE (BEAKER) 1.03 mg/dL 0.57-1.25 (test code = 358) GLUCOSE RANDOM 123 mg/dL 70-105 H (BEAKER) (test code = 652) CALCIUM (BEAKER) 8.4 mg/dL 8.4-10.2 (test code = 697) EGFR (BEAKER) (test 72 mL/min/1.73 ESTIMA SUSIE GFR IS code = 1092) sq m NOT ACCURATE CREATININE CLEARANCE IN PREDICTING GLOMERULAR FILTRATION RATE . ESTIMATED GFR I S NOT APPLICABLE FOR DIALYSIS PATIEN TS. Chocolate Temperer ID - [id number] 04:51:00 Test Item Value Reference Range Interpretation Comments MAGNESIUM (BEAKER) (test code = 1.8 mg/dL 1.6-2.6 627) Chocolate Temperer ID - EDASICBC W/PLT COUNT & AUTO [id number] 04:33:00 Test Item Value Reference Range Interpretation Comments WHITE BLOOD CELL COUNT (BEAKER) 9.8 K/ L 3.5-10.5 (test code = 775) RED BLOOD CELL COUNT (BEAKER) 4.26 M/ L 4.63-6.08 L (test code = 761) HEMOGLOBIN (BEAKER) (test code = 12.0 GM/DL 13.7-17.5 L 410) HEMATOCRIT (BEAKER) (test code = 37.7 % 40.1-51.0 L 411) MEAN CORPUSCULAR VOLUME (BEAKER) 88.5 fL 79.0-92.2 (test code = 753) MEAN CORPUSCULAR HEMOGLOBIN 28.2 pg 25.7-32.2 (BEAKER) (test code = 751) MEAN CORPUSCULAR HEMOGLOBIN CONC 31.8 GM/DL 32.3-36.5 L (BEAKER) (test code = 752) RED CELL DISTRIBUTION WIDTH 15.1 % 11.6-14.4 H (BEAKER) (test code = 412) PLATELET COUNT (BEAKER) (test 138 K/CU MM 150-450 L code = 756) MEAN PLATELET VOLUME (BEAKER) 11.1 fL 9.4-12.4 (test code = 754) NUCLEATED RED BLOOD CELLS 0 /100 WBC 0-0 (BEAKER) (test code = 413) NEUTROPHILS RELATIVE PERCENT 76 % (BEAKER) (test code = 429) LYMPHOCYTES RELATIVE PERCENT 14 % (BEAKER) (test code = 430) MONOCYTES RELATIVE PERCENT 8 % (BEAKER) (test code = 431) EOSINOPHILS RELATIVE PERCENT 1 % (BEAKER) (test code = 432) BASOPHILS RELATIVE PERCENT 0 % (BEAKER) (test code = 437) NEUTROPHILS ABSOLUTE COUNT 7.41 K/ L 1.78-5.38 H (BEAKER) (test code = 670) LYMPHOCYTES ABSOLUTE COUNT 1.35 K/ L 1.32-3.57 (BEAKER) (test code = 414) MONOCYTES ABSOLUTE COUNT (BEAKER) 0.77 K/ L 0.30-0.82 (test code = 415) EOSINOPHILS ABSOLUTE COUNT 0.13 K/ L 0.04-0.54 (BEAKER) (test code = 416) BASOPHILS ABSOLUTE COUNT (BEAKER) 0.04 K/ L 0.01-0.08 (test code = 417) IMMATURE GRANULOCYTES-RELATIVE 1 % 0-1 PERCENT (BEAKER) (test code = 2801) POCT-GLUCOSE [id number] 22:06:00 Test Item Value Reference Range Interpretation Comments POC-GLUCOSE METER 265 mg/dL 70-110 H : TESTED A T [facility] 6720 (BEAKER) (test code = [facility], 1538) 06640: Chocolate Temperer/Techni hilary ID = [id number] for ZUNILDA MCGRAW POCT-GLUCOSE [id number] 18:30:00 Test Item Value Reference Range Interpretation Comments POC-GLUCOSE METER 151 mg/dL 70-110 H : TESTED A T [facility] 6720 (BEAKER) (test code = [facility], 1538) 34052: Chocolate Temperer/Techni hilary ID = [id number] for Selina Napoles POCT-GLUCOSE [id number] 13:15:00 Test Item Value Reference Range Interpretation Comments POC-GLUCOSE METER 195 mg/dL 70-110 H : TESTED A T [facility] 6720 (BEAKER) (test code = [facility], 1538) 00925: Chocolate Temperer/Techni hilary ID = [id number] for Sadie Graham jesse POCT-GLUCOSE [id number] 09:10:00 Test Item Value Reference Range Interpretation Comments POC-GLUCOSE METER 144 mg/dL 70-110 H : TESTED A T [facility] 6720 (BEAKER) (test code = [facility], 1538) 73607: Chocolate Temperer/Techni hilary ID = [id number] for Sadie Graham jesse BASIC METABOLIC [id number] 05:45:00 Test Item Value Reference Range Interpretation Comments SODIUM (BEAKER) 139 meq/L 136-145 (test code = 381) POTASSIUM (BEAKER) 4.4 meq/L 3.5-5.1 (test code = 379) CHLORIDE (BEAKER) 102 meq/L 98-107 (test code = 382) CO2 (BEAKER) (test 27 meq/L 22-29 code = 355) BLOOD UREA NITROGEN 21 mg/dL 7-21 (BEAKER) (test code = 354) CREATININE (BEAKER) 0.95 mg/dL 0.57-1.25 (test code = 358) GLUCOSE RANDOM 163 mg/dL 70-105 H (BEAKER) (test code = 652) CALCIUM (BEAKER) 8.2 mg/dL 8.4-10.2 L (test code = 697) EGFR (BEAKER) (test 79 mL/min/1.73 ESTIMA SUSIE GFR IS code = 1092) sq m NOT ACCURATE CREATININE CLEARANCE IN PREDICTING GLOMERULAR FILTRATION RATE . ESTIMATED GFR I S NOT APPLICABLE FOR DIALYSIS PATIEN TS. Chocolate Temperer ID - [id number] 05:45:00 Test Item Value Reference Range Interpretation Comments MAGNESIUM (BEAKER) (test code = 2.1 mg/dL 1.6-2.6 627) Chocolate Temperer ID - EDASICBC W/PLT COUNT & AUTO [id number] 04:51:00 Test Item Value Reference Range Interpretation Comments WHITE BLOOD CELL COUNT (BEAKER) 7.8 K/ L 3.5-10.5 (test code = 775) RED BLOOD CELL COUNT (BEAKER) 4.00 M/ L 4.63-6.08 L (test code = 761) HEMOGLOBIN (BEAKER) (test code = 11.3 GM/DL 13.7-17.5 L 410) HEMATOCRIT (BEAKER) (test code = 36.0 % 40.1-51.0 L 411) MEAN CORPUSCULAR VOLUME (BEAKER) 90.0 fL 79.0-92.2 (test code = 753) MEAN CORPUSCULAR HEMOGLOBIN 28.3 pg 25.7-32.2 (BEAKER) (test code = 751) MEAN CORPUSCULAR HEMOGLOBIN CONC 31.4 GM/DL 32.3-36.5 L (BEAKER) (test code = 752) RED CELL DISTRIBUTION WIDTH 15.1 % 11.6-14.4 H (BEAKER) (test code = 412) PLATELET COUNT (BEAKER) (test 124 K/CU MM 150-450 L code = 756) MEAN PLATELET VOLUME (BEAKER) 11.3 fL 9.4-12.4 (test code = 754) NUCLEATED RED BLOOD CELLS 0 /100 WBC 0-0 (BEAKER) (test code = 413) NEUTROPHILS RELATIVE PERCENT 74 % (BEAKER) (test code = 429) LYMPHOCYTES RELATIVE PERCENT 15 % (BEAKER) (test code = 430) MONOCYTES RELATIVE PERCENT 9 % (BEAKER) (test code = 431) EOSINOPHILS RELATIVE PERCENT 1 % (BEAKER) (test code = 432) BASOPHILS RELATIVE PERCENT 0 % (BEAKER) (test code = 437) NEUTROPHILS ABSOLUTE COUNT 5.75 K/ L 1.78-5.38 H (BEAKER) (test code = 670) LYMPHOCYTES ABSOLUTE COUNT 1.18 K/ L 1.32-3.57 L (BEAKER) (test code = 414) MONOCYTES ABSOLUTE COUNT (BEAKER) 0.66 K/ L 0.30-0.82 (test code = 415) EOSINOPHILS ABSOLUTE COUNT 0.08 K/ L 0.04-0.54 (BEAKER) (test code = 416) BASOPHILS ABSOLUTE COUNT (BEAKER) 0.02 K/ L 0.01-0.08 (test code = 417) IMMATURE GRANULOCYTES-RELATIVE 1 % 0-1 PERCENT (BEAKER) (test code = 2801) POCT-GLUCOSE [id number] 21:30:00 Test Item Value Reference Range Interpretation Comments POC-GLUCOSE METER 258 mg/dL 70-110 H : TESTED A T [facility] 6720 (BEAKER) (test code = [facility], 1538) 73528: 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 Ca. Additional nonvascular findings include: *Bilateral groundglass opacities. Differential considerations include pulmonary edema and atypical infection.*Right pleural thickening.*Mildly prominent mediastinal lymph nodes are likely reactive. Signed: Hernán Barrow MDReport V erified Date/Time: 08/22/2020 14:19:24 Reading Location: [facility] Diagnostic Imaging Reading Room - [address] EndsFINAL REPORT CTA Aorta - Chest: 08/20/2020 12:53 AM. Comparison: None available. History: 70 years old Male with HTN, AVR s/p mechanical AVR in 1961 and 1984 and redo AVR with root enlargement with Hemashield woven grafts in 2018 who presented to an OSH with dyspnea, now coming with severe mitral stenosis. Evaluated for further treatment options including minimally invasive mitral valve replacement. Indication: There is clinical need to define thoracic aortic anatomy. Technique: Multi-detector CT technology was employed (Tova eCurv 256- slice scanner). Spiral acquisition before and during intravenous contrast administration. Images were obtained before and during the dynamic passage of intravenous contrast material. Multi-planar 3-D volume-rendering reconstruction was performed using an independent workstation interactively by the interpreting physician as well as the 3-D specialist for optimal visualization of the thoracic aorta as well as itsproximal branches. Please refer to the contrast sheet scanned in the EPIC system for the amount and route of contrast given. This exam was performed according to our departmental dose-optimization progr amme, which includes automated exposure control, adjustment of the mA and/or kV according to patientsize and/or use of iterative reconstruction technique. Dose modulation, iterative reconstruction, and/or weight based adjustment of the mA/kV was utilized to reduce the radiation dose to as low as reasonably achievable. RESULT:Potential study limitations: None. CHEST: The visualized thyroid gland appears unremarkable. The chest wall is remarkable for prior median sternotomy with intact sternal suture wires. PPM device over the left anterior chest wall, with transvenous leads extending to the RA andRV The mediastinum is unremarkable. There are enlarged mediastinal lymphadenopathy with the largestmeasuring 1.4 cm. The pericardium appears unremarkable. The pulmonary arteries are centrally dilated with the main pulmonary artery measuring 3.6 cm. The lung windows: Reveal bilateral diffuse groundglass opacification consistent with significant pulmonary congestion. The central airways are patent. There is no abnormal pulmonary parenchymal mass, or pleural effusion. The cardiac chambers have normal atrioventricular and ventriculoarterial concordance, and systemic and pulmonary venous return.The cardiac chamber sizes are notable for moderate left and mild right atrial enlargement. The coronary arteries are reimplanted into the Hemashield graft. There are mild coronary calcifications identified, though this study was not optimized for coronary artery evaluation. There is severe mitral annular calcification extending to the base and mid inferolateral segment of the myocardium and extensive calcification involving the subtalar valvular apparatus. VASCULAR WITH ADVANCED 3-D OFFLINE POST-PROCESSING:The aortic valve is replaced by a bioprosthesis. The leaflets are free from calcifications. The aortic root and ascending aorta is replaced by a Hemashield graft. There is no evidence of kinking, pseudoaneurysm or leak noted. The distal capitan grande band thoracic aorta and aortic arch are normal in course and caliber with mild calcification. The arch vessel branching pattern is normal. The imaged arch branch vessels are patent proximally. Normal variant the left vertebral artery originates directly from the aortic arch. The descending thoracic aorta is normal in course, caliber, and contour. There is no acute aortic pathology, such as dissection, intramural hematoma, or contained rupture. PROXIMITY OF THE CARDIOVASCULAR STRUCTURES TO THE STERNUM:The cardiovascular structures lie in close relat ionship to the sternum (<1 cm).*The left brachio-cephalic vein lies 10 mm behind the upper-manubrium sternum.*The aorta lies 15 mm behind the upper sternum.*The RV myocardium lies immediately behindthe lower sternum. ABDOMEN:The limited images of the upper abdomen reveal no abnormalities of the imaged organs. IMPRESSION: 1. There is severe mitral annular calcification extending to the base and mid inferolateral segment of the myocardium and extensive calcification involving the subtalar valvular apparatus. 2. The aortic valve is replaced by a bioprosthesis. The leaflets are free from calcific ations. The aortic root and ascending aorta is replaced by a Hemashield graft. There is no evidenceof kinking, pseudoaneurysm or leak noted. 3. Bilateral diffuse groundglass opacification consistentwith significant pulmonary congestion. 4. The cardiovascular structures lie in close relationship tothe sternum (<1 cm), as above. An addendum will be dictated regarding the non- vascular findings by the Sheet Tester Radiologist. Signed: Jhon Ca PAULeport Verified Date/Time: 08/21/2020 19:18:48 POCT-GLUCOSE [id number] 09:08:00 Test Item Value Reference Range Interpretation Comments POC-GLUCOSE METER 130 mg/dL 70-110 H : TESTED A T [facility] 6720 (BEAKER) (test code = IDRIS Galan ARRIAZA ND, 1538) 44768: Chocolate Temperer/Techni hilary ID = [id number] for Selina Napoles Hemoglobin [id number] 08:06:00 Test Item Value Reference Range Interpretation Comments Hemoglobin A1C (test code = 4548-4) 7.9 % 4.3-6.1 H Lab Interpretation (test code = Abnormal 07602-8) [facility] [id number] 08:06:00 Test Item Value Reference Range Interpretation Comments HEMOGLOBIN A1C (BEAKER) (test code = 7.9 % 4.3-6.1 H 368) Hepatic function [id number] 04:45:00 Test Item Value Reference Range Interpretation Comments Protein, Total (test 5.6 See_Comment L [Autom ated code = 2885-2) message] The system which generated this result transmit susie reference range : 6.0 - 8.3 gm/dL . The reference range was not u sed to interpret th is result as normal/abnormal . Albumin (test code = 3.2 g/dL 3.5-5 L 21673-5) Total Bilirubin (test 0.8 mg/dL 0.2-1.2 code = 1975-2) Bilirubin, Direct 0.3 mg/dL 0.1-0.5 (test code = 1968-7) Alkaline Phosphatase 52 U/L 40-150 (test code = 6768-6) AST (test code = 20 U/L 5-34 1920-8) ALT (test code = 70 U/L 6-55 H 1742-6) KANCHAN (test code = KANCHAN) Chocolate Temperer ID - PIAYA L Lab Interpretation Abnormal (test code = 15163-5) [facility] Center[facility]PREHENSIVE METABOLIC [id number] 04:45:00 Test Item Value Reference Range Interpretation Comments TOTAL PROTEIN 5.6 gm/dL 6.0-8.3 L (BEAKER) (test code = 770) ALBUMIN (BEAKER) 3.2 g/dL 3.5-5.0 L (test code = 1145) ALKALINE PHOSPHATASE 52 U/L 40-150 (BEAKER) (test code = 346) BILIRUBIN TOTAL 0.8 mg/dL 0.2-1.2 (BEAKER) (test code = 377) SODIUM (BEAKER) (test 140 meq/L 136-145 code = 381) POTASSIUM (BEAKER) 4.1 meq/L 3.5-5.1 (test code = 379) CHLORIDE (BEAKER) 101 meq/L 98-107 (test code = 382) CO2 (BEAKER) (test 29 meq/L 22-29 code = 355) BLOOD UREA NITROGEN 24 mg/dL 7-21 H (BEAKER) (test code = 354) CREATININE (BEAKER) 0.96 mg/dL 0.57-1.25 (test code = 358) GLUCOSE RANDOM 156 mg/dL 70-105 H (BEAKER) (test code = 652) CALCIUM (BEAKER) 8.4 mg/dL 8.4-10.2 (test code = 697) AST (SGOT) (BEAKER) 20 U/L 5-34 (test code = 353) ALT (SGPT) (BEAKER) 70 U/L 6-55 H (test code = 347) EGFR (BEAKER) (test 78 mL/min/1.73 ESTIMA SUSIE GFR IS code = 1092) sq m NOT ACCURATE CREATININE CLEARANCE IN PREDICTING GLOMERULAR FILTRATION RATE . ESTIMATED GFR I S NOT APPLICABLE FOR DIALYSIS PATIEN TS. Chocolate Temperer ID - PIAYAD [id number] 04:45:00 Test Item Value Reference Range Interpretation Comments MAGNESIUM (BEAKER) (test code = 2.1 mg/dL 1.6-2.6 627) Chocolate Temperer ID - VIVIANE [id number] 04:45:00 Test Item Value Reference Range Interpretation Comments PHOSPHORUS (BEAKER) (test code = 3.8 mg/dL 2.3-4.7 604) Chocolate Temperer ID - VIVIANE LHEPATIC FUNCTION [id number] 04:45:00 Test Item Value Reference Range Interpretation Comments TOTAL PROTEIN (BEAKER) (test code = 5.6 gm/dL 6.0-8.3 L 770) ALBUMIN (BEAKER) (test code = 1145) 3.2 g/dL 3.5-5.0 L BILIRUBIN TOTAL (BEAKER) (test code 0.8 mg/dL 0.2-1.2 = 377) BILIRUBIN DIRECT (BEAKER) (test 0.3 mg/dL 0.1-0.5 code = 706) ALKALINE PHOSPHATASE (BEAKER) (test 52 U/L 40-150 code = 346) AST (SGOT) (BEAKER) (test code = 20 U/L 5-34 353) ALT (SGPT) (BEAKER) (test code = 70 U/L 6-55 H 347) Chocolate Temperer ID - VIVIANE LCBC W/PLT COUNT & AUTO [id number] 04:13:00 Test Item Value Reference Range Interpretation Comments WHITE BLOOD CELL COUNT (BEAKER) 11.9 K/ L 3.5-10.5 H (test code = 775) RED BLOOD CELL COUNT (BEAKER) 3.94 M/ L 4.63-6.08 L (test code = 761) HEMOGLOBIN (BEAKER) (test code = 11.1 GM/DL 13.7-17.5 L 410) HEMATOCRIT (BEAKER) (test code = 34.5 % 40.1-51.0 L 411) MEAN CORPUSCULAR VOLUME (BEAKER) 87.6 fL 79.0-92.2 (test code = 753) MEAN CORPUSCULAR HEMOGLOBIN 28.2 pg 25.7-32.2 (BEAKER) (test code = 751) MEAN CORPUSCULAR HEMOGLOBIN CONC 32.2 GM/DL 32.3-36.5 L (BEAKER) (test code = 752) RED CELL DISTRIBUTION WIDTH 14.6 % 11.6-14.4 H (BEAKER) (test code = 412) PLATELET COUNT (BEAKER) (test 138 K/CU MM 150-450 L code = 756) MEAN PLATELET VOLUME (BEAKER) 11.0 fL 9.4-12.4 (test code = 754) NUCLEATED RED BLOOD CELLS 0 /100 WBC 0-0 (BEAKER) (test code = 413) NEUTROPHILS RELATIVE PERCENT 78 % (BEAKER) (test code = 429) LYMPHOCYTES RELATIVE PERCENT 13 % (BEAKER) (test code = 430) MONOCYTES RELATIVE PERCENT 8 % (BEAKER) (test code = 431) EOSINOPHILS RELATIVE PERCENT 1 % (BEAKER) (test code = 432) BASOPHILS RELATIVE PERCENT 0 % (BEAKER) (test code = 437) NEUTROPHILS ABSOLUTE COUNT 9.27 K/ L 1.78-5.38 H (BEAKER) (test code = 670) LYMPHOCYTES ABSOLUTE COUNT 1.49 K/ L 1.32-3.57 (BEAKER) (test code = 414) MONOCYTES ABSOLUTE COUNT (BEAKER) 0.89 K/ L 0.30-0.82 H (test code = 415) EOSINOPHILS ABSOLUTE COUNT 0.10 K/ L 0.04-0.54 (BEAKER) (test code = 416) BASOPHILS ABSOLUTE COUNT (BEAKER) 0.02 K/ L 0.01-0.08 (test code = 417) IMMATURE GRANULOCYTES-RELATIVE 1 % 0-1 PERCENT (BEAKER) (test code = 2801) PROTHROMBIN [id number] 04:07:00 Test Item Value Reference Range Interpretation Comments PROTIME (BEAKER) 14.4 seconds 11.9-14.2 H (test code = 759) INR (BEAKER) (test 1.17 See_Comment [Automat ed message] code = 370) The system [employer] generated this result transmitted ref erence range: <=5.90. The reference range was not used to int erpret this result as normal/abnormal . Effective 11/01/2018: PT Reference Range ChangeNew: 11.9-14.2 Previous: 11.7- 14.7RECOMMENDED COUMADIN/WARFARIN INR THERAPY RANGESSTANDARD DOSE: 2.0-3.0 Includes: PROPHYLAXIS for venous thrombosis, systemic embolization; TREATMENT for venous thrombosis and/or pulmonary embolus.HIGH RISK: Target INR is2.5-3.5 for patients wiht mechanical heart valves.CALCIUM, [id number] 04:01:00 Test Item Value Reference Range Interpretation Comments CALCIUM IONIZED (BEAKER) (test 1.15 mmol/L 1.12-1.27 code = 698) PH, BLOOD (BEAKER) (test code = 7.43 1810) POCT-GLUCOSE [id number] 21:36:00 Test Item Value Reference Range Interpretation Comments POC-GLUCOSE METER 233 mg/dL 70-110 H : TESTED Anne Shelton [facility] 6720 (MALIK) (test code = [place], 1538) [address]: Chocolate Temperer/Techni hilary ID = [id number] for Dennis Doss CTA [id number] 19:18:00Interface, External Ris In - 08/22/2020 2:21 PM CDTAddendum BeginsREPORT STATUS:A I agree with the nonvascular findings detailed by Dr. Ca. Additional nonvascular findings in clude: *Bilateral groundglass opacities. Differential considerations include pulmonary edema and atypical infection.*Right pleural thickening.*Mildly prominent mediastinal lymph nodes are likely reactive. Signed: Hernán Barrow MDReport Verified Date/Time: 08/22/2020 14:19:24 Reading Location: [facility] Reading Room - [place] [address] [id number] EndsFINAL REPORT CTA Aorta - Chest: 08/20/2020 12:53 AM. Comparison: None available. History: 70 years old Male with HTN,AVR s/p mechanical AVR in 1961 and 1984 and redo AVR with root enlargement with Hemashield woven grafts in 2018 who presented to an OSH with dyspnea, now coming with severe mitral stenosis. Evaluated for further treatment options including minimally invasive mitral valve replacement. Indication: There is clinical need to define thoracic aortic anatomy. Technique: Multi-detector CT technology was employed (Tova eCurv 256- slice scanner). Spiral acquisition before and during intravenous contrast adm inistration. Images were obtained before and during the dynamic passage of intravenous contrast material. Multi-planar 3-D volume-rendering reconstruction was performed using an independent workstation interactively by the interpreting physician as well as the 3-D specialist for optimal visualizationof the thoracic aorta as well as its proximal branches. Please refer to the contrast sheet scanned in the EPIC system for the amount and route of contrast given. This exam was performed according to our departmental dose-optimization programme, which includes automated exposure control, adjustment of the mA and/or kV according to patient size and/or use of iterative reconstruction technique. Dose modulation, iterative reconstruction, and/or weight based adjustment of the mA/kV was utilized to reducethe radiation dose to as low as reasonably achievable. RESULT:Potential study limitations: None. CHEST: The visualized thyroid gland appears unremarkable. The chest wall is remarkable for prior mediansternotomy with intact sternal suture wires. PPM device over the left anterior chest wall, with transvenous leads extending to the RA and RV The mediastinum is unremarkable. There are enlarged mediastinal lymphadenopathy with the largest measuring 1.4 cm. The pericardium appears unremarkable. The pulmonary arteries are centrally dilated with the main pulmonary artery measuring 3.6 cm. The lung windows: Reveal bilateral diffuse groundglass opacification consistent with significant pulmonary congestion. The central airways are patent. There is no abnormal pulmonary parenchymal mass, or pleural effusion. The cardiac chambers have normal atrioventricular and ventriculoarterial concordance, and systemic and pulmonary venous return. The cardiac chamber sizes are notable for moderate left and mild right atrial enlargement. The coronary arteries are reimplanted into the Hemashield graft. There are mild coronary calcifications identified, though this study was not optimized for coronary artery evaluation. There is severe mitral annular calcification extending to the base and mid inferolateral segment of the myocardium and extensive calcification involving the subtalar valvular apparatus. VASCULAR WITH ADVANCED 3-D OFFLINE POST-PROCESSING:The aortic valve is replaced by a bioprosthesis. The leaflets are free from calcifications. The aortic root and ascending aorta is replaced by a Hemashield graft. There is no evidence of kinking, pseudoaneurysm or leak noted. The distal capitan grande band thoracic aorta and aortic arch are normal in course and caliber with mild calcification. The arch vessel branching pattern is normal. The imaged arch branch vessels are patent proximally. Normal variant the left vertebral artery originates directly from the aortic arch. The descending thoracic aorta is normalin course, caliber, and contour. There is no acute aortic pathology, such as dissection, intramuralhematoma, or contained rupture. PROXIMITY OF THE CARDIOVASCULAR STRUCTURES TO THE STERNUM:The cardiovascular structures lie in close relationship to the sternum (<1 cm).*The left brachio-cephalic vein lies 10 mm behind the upper-manubrium sternum.*The aorta lies 15 mm behind the upper sternum.*The RV myocardium lies immediately behind the lower sternum. ABDOMEN:The limited images of the upper abdomen reveal no abnormalities of the imaged organs. IMPRESSION: 1. There is severe mitral annular calcification extending to the base and mid inferolateral segment of the myocardium and extensive calcification involving the subtalar valvular apparatus. 2. The aortic valve is replaced by a bioprosthesis. The leaflets are free from calcifications. The aortic root and ascending aorta is replaced by a Hemashield graft. There is no evidence of kinking, pseudoaneurysm or leak noted. 3. Bilateral diffusegroundglass opacification consistent with significant pulmonary congestion. 4. The cardiovascular structures lie in close relationship to the sternum (<1 cm), as above. An addendum will be dictated regarding the non-vascular findings by the Sheet Tester Radiologist. Signed: Jhon Ca MDReport Verified Date/Time: 08/21/2020 19:18:48 [facility] POCT-GLUCOSE [id number] 18:31:00 Test Item Value Reference Range Interpretation Comments POC-GLUCOSE METER 225 mg/dL 70-110 H : TESTED A T [facility] 6720 (BEAKER) (test code = [facility], 1538) [address]: Chocolate Temperer/Techni hilary ID = [id number] for Leilani Cardoso POCT-GLUCOSE [id number] 12:41:00 Test Item Value Reference Range Interpretation Comments POC-GLUCOSE METER 280 mg/dL 70-110 H : TESTED A T [facility] 6720 (BEAKER) (test code = [facility], 1538) [address]: Chocolate Temperer/Techni hilary ID = [id number] for Sharif love Selina POCT-GLUCOSE [id number] 08:31:00 Test Item Value Reference Range Interpretation Comments POC-GLUCOSE METER 138 mg/dL 70-110 H : TESTED A T [facility] 6720 (BEAKER) (test code = [facility], 1538) [address]: Chocolate Temperer/Techni hilary ID = [id number] for Leilani Cardoso CT, [id number] 07:19:00Unlisted Reason for Exam - Click Yes and Enter Reason Below->YesUnlisted Reason for Exam->Pre-op minimally invasive valve surgery, need to assess peripheral access optionsWill this procedure require oral contrast?->No [facility]ARK[facility] : 1950 Sex: MFINAL REPORT TECHNIQUE: CT of the abdomen and pelvis WITHOUT in travenous contrast and WITHOUT oral contrast. Dose modulation, iterative reconstruction, and/or weight-based adjustment of the mA/kV was utilized to reduce the radiation dose to as low as reasonably achievable. INDICATION: 70-year-old man for preoperative evaluation for minimally invasive valve surgery . COMPARISON: None. FINDINGS: ABSENCE OF INTRAVENOUS CONTRAST DECREASES SENSITIVITY FOR DETECTION OF FOCAL LESIONS AND VASCULAR PATHOLOGY. LOWER THORAX: Please refer to chest CTA from 08/20/2020 for further details. HEPATOBILIARY: No focal hepatic lesion. Gallbladder is unremarkable. No biliary ductal dilatation.SPLEEN: No splenomegaly.PANCREAS: No focal mass or ductal dilatation. ADRENALS: No adrenal nodule.KIDNEYS/URETERS: No hydronephrosis, calculus, or mass.PELVIC ORGANS/BLADDER: Prominent prostate. Retained contrast within the underdistended bladder. PERITONEUM/RETROPERITONEUM: No free air or fluid.LYMPH NODES: No lymphadenopathy.VESSELS: Atherosclerotic vascular calcifications in the abdominal aorta, bilateral iliac arteries, and bilateral common femoral arteries without aneurysm. GI TRACT:No distention or wall thickening. BONES AND SOFT TISSUES: No acute osseous abnormalities. Soft tissues are unremarkable. IMPRESSION:No acute abnormalities in the abdomen or pelvis. Prostatomegaly. Sign ed: Hernán Barrow Verified Date/Time: 08/21/2020 07:19:48 Reading Location: [facility] Diagnostic Imaging Reading Room - [place] [address] CT abdomen/pelvis without iv [id number] 07:19:00Interface, External Ris In - 08/21/2020 7:22 AM CDTFINAL REPORT TECHNIQUE: CT of the abdomen and pelvis WITHOUT intravenous contrast and WITHOUT oral contrast. Dose modulation, iterative reconstruction, and/or weight-based adjustment of the mA/kV was utilized to reduce the radiation dose to as low as reasonably achievable. INDICATION: 70-year-old man for preoperative evaluation for minimally invasive valve surgery. COMPARISON: None. FINDINGS: ABSENCE OF INTRAVENOUS CONTRAST D ECREASES SENSITIVITY FOR DETECTION OF FOCAL LESIONS AND VASCULAR PATHOLOGY. LOWER THORAX: Please refer to chest CTA from 08/20/2020 for further details. HEPATOBILIARY: No focal hepatic lesion. Gallbladder is unremarkable. No biliary ductal dilatation.SPLEEN: No splenomegaly.PANCREAS: No focal mass or ductal dilatation. ADRENALS: No adrenal nodule.KIDNEYS/URETERS: No hydronephrosis, calculus, or mass.PELVIC ORGANS/BLADDER: Prominent prostate. Retained contrast within the underdistended bladder. PERITONEUM/RETROPERITONEUM: No free air or fluid.LYMPH NODES: No lymphadenopathy.VESSELS: Atherosclerotic vascular calcifications in the abdominal aorta, bilateral iliac arteries, and bilateral common femoralarteries without aneurysm. GI TRACT: No distention or wall thickening. BONES AND SOFT TISSUES: No acute osseous abnormalities. Soft tissues are unremarkable. IMPRESSION:No acute abnormalities in the abdomen or pelvis. Prostatomegaly. Signed: Hernán Barrow MDReport Verified Date/Time: 08/21/2020 07:19:48 Reading Location: [facility] Diagnostic Imaging Reading Room - [place] [address] [facility]OLIC [id number] 05:09:00 Test Item Value Reference Range Interpretation Comments SODIUM (BEAKER) 137 meq/L 136-145 (test code = 381) POTASSIUM (BEAKER) 3.9 meq/L 3.5-5.1 (test code = 379) CHLORIDE (BEAKER) 98 meq/L 98-107 (test code = 382) CO2 (BEAKER) (test 29 meq/L 22-29 code = 355) BLOOD UREA NITROGEN 30 mg/dL 7-21 H (BEAKER) (test code = 354) CREATININE (BEAKER) 0.92 mg/dL 0.57-1.25 (test code = 358) GLUCOSE RANDOM 141 mg/dL 70-105 H (BEAKER) (test code = 652) CALCIUM (BEAKER) 8.9 mg/dL 8.4-10.2 (test code = 697) EGFR (BEAKER) (test 82 mL/min/1.73 ESTIMA SUSIE GFR IS code = 1092) sq m NOT ACCURATE CREATININE CLEARANCE IN PREDICTING GLOMERULAR FILTRATION RATE . ESTIMATED GFR I S NOT APPLICABLE FOR DIALYSIS PATIEN TS. Chocolate Temperer ID - ALESHAAYA LHEPATIC FUNCTION [id number] 05:09:00 Test Item Value Reference Range Interpretation Comments TOTAL PROTEIN (BEAKER) (test code = 6.1 gm/dL 6.0-8.3 770) ALBUMIN (BEAKER) (test code = 1145) 3.4 g/dL 3.5-5.0 L BILIRUBIN TOTAL (BEAKER) (test code 0.8 mg/dL 0.2-1.2 = 377) BILIRUBIN DIRECT (BEAKER) (test 0.3 mg/dL 0.1-0.5 code = 706) ALKALINE PHOSPHATASE (BEAKER) (test 59 U/L 40-150 code = 346) AST (SGOT) (BEAKER) (test code = 30 U/L 5-34 353) ALT (SGPT) (BEAKER) (test code = 81 U/L 6-55 H 347) Chocolate Temperer ID - VIVIANE LB-TYPE NATRIURETIC FACTOR (BNP)2020-08-21 04:45:00 Test Item Value Reference Range Interpretation Comments B-TYPE NATRIURETIC PEPTIDE (BEAKER) 131 pg/mL 0-100 H (test code = 700) Chocolate Temperer ID - CECILE MCBC W/PLT COUNT & AUTO [id number] 04:23:00 Test Item Value Reference Range Interpretation Comments WHITE BLOOD CELL COUNT (BEAKER) 12.8 K/ L 3.5-10.5 H (test code = 775) RED BLOOD CELL COUNT (BEAKER) 4.36 M/ L 4.63-6.08 L (test code = 761) HEMOGLOBIN (BEAKER) (test code = 12.1 GM/DL 13.7-17.5 L 410) HEMATOCRIT (BEAKER) (test code = 38.0 % 40.1-51.0 L 411) MEAN CORPUSCULAR VOLUME (BEAKER) 87.2 fL 79.0-92.2 (test code = 753) MEAN CORPUSCULAR HEMOGLOBIN 27.8 pg 25.7-32.2 (BEAKER) (test code = 751) MEAN CORPUSCULAR HEMOGLOBIN CONC 31.8 GM/DL 32.3-36.5 L (BEAKER) (test code = 752) RED CELL DISTRIBUTION WIDTH 14.6 % 11.6-14.4 H (BEAKER) (test code = 412) PLATELET COUNT (BEAKER) (test 164 K/CU MM 150-450 code = 756) MEAN PLATELET VOLUME (BEAKER) 10.8 fL 9.4-12.4 (test code = 754) NUCLEATED RED BLOOD CELLS 0 /100 WBC 0-0 (BEAKER) (test code = 413) NEUTROPHILS RELATIVE PERCENT 76 % (BEAKER) (test code = 429) LYMPHOCYTES RELATIVE PERCENT 12 % (BEAKER) (test code = 430) MONOCYTES RELATIVE PERCENT 9 % (BEAKER) (test code = 431) EOSINOPHILS RELATIVE PERCENT 1 % (BEAKER) (test code = 432) BASOPHILS RELATIVE PERCENT 0 % (BEAKER) (test code = 437) NEUTROPHILS ABSOLUTE COUNT 9.74 K/ L 1.78-5.38 H (BEAKER) (test code = 670) LYMPHOCYTES ABSOLUTE COUNT 1.56 K/ L 1.32-3.57 (BEAKER) (test code = 414) MONOCYTES ABSOLUTE COUNT (BEAKER) 1.09 K/ L 0.30-0.82 H (test code = 415) EOSINOPHILS ABSOLUTE COUNT 0.14 K/ L 0.04-0.54 (BEAKER) (test code = 416) BASOPHILS ABSOLUTE COUNT (BEAKER) 0.02 K/ L 0.01-0.08 (test code = 417) IMMATURE GRANULOCYTES-RELATIVE 2 % 0-1 H PERCENT (BEAKER) (test code = 2801) POCT-GLUCOSE [id number] 22:28:00 Test Item Value Reference Range Interpretation Comments POC-GLUCOSE METER 266 mg/dL 70-110 H : TESTED Anne Shelton [facility] 6720 (BEAKER) (test code = [place], 1538) [address]: Chocolate Temperer/Techni hilary ID = [id number] for Annette Sepulveda POCT-GLUCOSE [id number] 18:08:00 Test Item Value Reference Range Interpretation Comments POC-GLUCOSE METER 230 mg/dL 70-110 H : TESTED A T [facility] 6720 (MALIK) (test code = IDR[facility], 1538) [address]: Chocolate Temperer/Techni hilary ID = [id number] for Leilani Cardoso POCT-GLUCOSE [id number] 12:23:00 Test Item Value Reference Range Interpretation Comments POC-GLUCOSE METER 340 mg/dL 70-110 H : TESTED A T [facility] 6720 (MALIK) (test code = IDRIS [facility], 1538) [address]: Chocolate Temperer/Techni hilary ID = [id number] for Leilani Cardoso Urinalysis w/[id number] 10:09:00 Test Item Value Reference Range Interpretation Comments Color, UA (test Colorless code = 5778-6) Clarity, UA (test Clear code = 5767-9) Specific [place], 1.016 1.001-1.035 UA (test code = 5811-5) pH, UA (test code 7.0 5.0-8.0 = 5803-2) Protein, UA (test Negative Negative code = 70942-5) Glucose, UA (test Negative Negative code = 365) Ketones, UA (test Negative Negative code = 2514-8) Bilirubin, UA Negative Negative (test code = 78513-6) Blood, UA (test Negative Negative code = 40909-9) Nitrite, UA (test Negative Negative code = 5802-4) Leukocytes, UA Negative Negative (test code = 5799-2) Urobilinogen, UA 0.2 mg/dL 0.2-1 (test code = 90704-2) RBC, UA (test 1 See_Comment [Automated code = 76289-9) message] The system which generated this result transmitted reference range : /HPF. The refer ence range was not u sed to interpret th is result as normal/abnormal . WBC, UA (test <1 See_Comment [Automated code = 5821-4) message] The system which generated this result transmitted reference range : /HPF. The refer ence range was not u sed to interpret th is result as normal/abnormal . Mucus (test code Rare = 8247-9) Squam Epithel, UA <1 See_Comment [Automate d (test code = message] The sy stem 85849-2) which generated this result transmitted reference range : /HPF. The refer ence range was not u sed to interpret th is result as normal/abnormal . Specimen Source (test code = 2795) KANCHAN (test code = Chocolate Temperer ID - KANCHAN) [auto]Chocolate Temperer ID - tech [facility] [id number] 10:09:00 Test Item Value Reference Range Interpretation Comments COLOR (BEAKER) (test code = 470) Colorless CLARITY (BEAKER) (test code = 469) Clear SPECIFIC GRAVITY UA (BEAKER) (test 1.016 1.001-1.035 code = 468) PH UA (BEAKER) (test code = 467) 7.0 5.0-8.0 PROTEIN UA (BEAKER) (test code = Negative Negative 464) GLUCOSE UA (BEAKER) (test code = Negative Negative 365) KETONES UA (BEAKER) (test code = Negative Negative 371) BILIRUBIN UA (BEAKER) (test code = Negative Negative 462) BLOOD UA (BEAKER) (test code = 461) Negative Negative NITRITE UA (BEAKER) (test code = Negative Negative 465) LEUKOCYTE ESTERASE UA (BEAKER) Negative Negative (test code = 466) UROBILINOGEN UA (BEAKER) (test code 0.2 mg/dL 0.2-1.0 = 463) RBC UA (BEAKER) (test code = 519) 1 /HPF WBC UA (BEAKER) (test code = 520) < /HPF MUCUS (BEAKER) (test code = 1574) Rare SQUAMOUS EPITHELIAL (BEAKER) (test < /HPF code = 516) SOURCE(BEAKER) (test code = 2795) Chocolate Temperer ID - [auto]Chocolate Temperer ID - techCREATININE, RANDOM [id number] 10:03:00 Test Item Value Reference Range Interpretation Comments CREATININE URINE (BEAKER) (test 31.4 mg/dL code = 375) Reference Range: No NormalsOperator ID - EMERSONSODIUM, RANDOM [id number] 10:03:00 Test Item Value Reference Range Interpretation Comments SODIUM URINE (BEAKER) (test code = 92 meq/L 243) Reference Range: No NormalsOperator ID - EMERSONUREA NITROGEN, RANDOM URINE 2020-08-20 10:03:00 Test Item Value Reference Range Interpretation Comments UREA NITROGEN URINE (BEAKER) (test 343 mg/dL code = 538) Reference Range: No NormalsOperator ID - EMERSONPOCT-GLUCOSE [id number] 08:23:00 Test Item Value Reference Range Interpretation Comments POC-GLUCOSE METER 237 mg/dL 70-110 H : TESTED A T [facility] 6720 (BEAKER) (test code = [place], 1538) [address]: Chocolate Temperer/Techni hilary ID = [id number] for Leilani Cardoso BASIC METABOLIC [id number] 04:13:00 Test Item Value Reference Range Interpretation Comments SODIUM (BEAKER) 139 meq/L 136-145 (test code = 381) POTASSIUM (BEAKER) 4.1 meq/L 3.5-5.1 (test code = 379) CHLORIDE (BEAKER) 97 meq/L 98-107 L (test code = 382) CO2 (BEAKER) (test 31 meq/L 22-29 H code = 355) BLOOD UREA NITROGEN 34 mg/dL 7-21 H (BEAKER) (test code = 354) CREATININE (BEAKER) 1.36 mg/dL 0.57-1.25 H (test code = 358) GLUCOSE RANDOM 173 mg/dL 70-105 H (BEAKER) (test code = 652) CALCIUM (BEAKER) 9.0 mg/dL 8.4-10.2 (test code = 697) EGFR (BEAKER) (test 52 mL/min/1.73 ESTIMA SUSIE GFR IS code = 1092) sq m NOT ACCURATE CREATININE CLEARANCE IN PREDICTING GLOMERULAR FILTRATION RATE . ESTIMATED GFR I S NOT APPLICABLE FOR DIALYSIS PATIEN TS. Chocolate Temperer ID - EDASICBC W/PLT COUNT & AUTO [id number] 03:57:00 Test Item Value Reference Range Interpretation Comments WHITE BLOOD CELL COUNT (BEAKER) 14.3 K/ L 3.5-10.5 H (test code = 775) RED BLOOD CELL COUNT (BEAKER) 4.81 M/ L 4.63-6.08 (test code = 761) HEMOGLOBIN (BEAKER) (test code = 13.3 GM/DL 13.7-17.5 L 410) HEMATOCRIT (BEAKER) (test code = 41.8 % 40.1-51.0 411) MEAN CORPUSCULAR VOLUME (BEAKER) 86.9 fL 79.0-92.2 (test code = 753) MEAN CORPUSCULAR HEMOGLOBIN 27.7 pg 25.7-32.2 (BEAKER) (test code = 751) MEAN CORPUSCULAR HEMOGLOBIN CONC 31.8 GM/DL 32.3-36.5 L (BEAKER) (test code = 752) RED CELL DISTRIBUTION WIDTH 14.6 % 11.6-14.4 H (BEAKER) (test code = 412) PLATELET COUNT (BEAKER) (test 208 K/CU MM 150-450 code = 756) MEAN PLATELET VOLUME (BEAKER) 10.8 fL 9.4-12.4 (test code = 754) NUCLEATED RED BLOOD CELLS 0 /100 WBC 0-0 (BEAKER) (test code = 413) NEUTROPHILS RELATIVE PERCENT 71 % (BEAKER) (test code = 429) LYMPHOCYTES RELATIVE PERCENT 16 % (BEAKER) (test code = 430) MONOCYTES RELATIVE PERCENT 10 % (BEAKER) (test code = 431) EOSINOPHILS RELATIVE PERCENT 2 % (BEAKER) (test code = 432) BASOPHILS RELATIVE PERCENT 0 % (BEAKER) (test code = 437) NEUTROPHILS ABSOLUTE COUNT 10.06 K/ L 1.78-5.38 H (BEAKER) (test code = 670) LYMPHOCYTES ABSOLUTE COUNT 2.23 K/ L 1.32-3.57 (BEAKER) (test code = 414) MONOCYTES ABSOLUTE COUNT (BEAKER) 1.41 K/ L 0.30-0.82 H (test code = 415) EOSINOPHILS ABSOLUTE COUNT 0.21 K/ L 0.04-0.54 (BEAKER) (test code = 416) BASOPHILS ABSOLUTE COUNT (BEAKER) 0.05 K/ L 0.01-0.08 (test code = 417) IMMATURE GRANULOCYTES-RELATIVE 2 % 0-1 H PERCENT (BEAKER) (test code = 2801) Transesophageal [id number] 21:53:08Ejection FractionSLEH ECHO HEARTLAB MKCKESSON CPACSInterface, External Ris In - 08/19/2020 9:53 PM C DTTransesophageal Echocardiography Report (GERRI) Demographics Patient Name ARIELLA PARKER Date of Study 08/18/2020 APRIL Gender Male Visit Number [id number] Race Room Number 1414 Number Date of 1950 Referring Trevor Perez Physician 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 Interpreting Jhon Ca MD Physician Fellow NOY Oleary Procedure Type of Study GERRI procedure:TRANSESOPHAGEAL ECHO (Routine) Indications:Evaluation of Valve Disease.Clinical HistoryHTN, HLD, CKD, CAD, PPM, COPD, CVA, ABESTOSIS, SEVERE MS, AVR X2 (1960;10/2017- 23MM SJ TRIFECTA)Height: 72 inches Weight: 93.44 kg (206 lbs) BSA: 2.16 m^2 BMI: 27.94 kg/m^2HR: 61 bpm BP: 128/67 mmHgTEE Performed By: the attending and the fellow Procedure Informed Consent GERRI procedure notes Moderate sedation by performing MD using 3 mg IV versed and 75 mcg IV fentanyl. . Type of Anesthesia: Moderate sedation Summary 1. Severe mitral stenosis with mean gradient 10mmHg at paced HR 60 and MVA 1.0cm2 by 3D planimetry. Severe mitral annular calcification. The submitral apparatus appears thickened and severely calcified. Moderate MV leaflet thickening and mild leaflet calcification. Trace mitralregurgitation. 2. A stented biologic AoV prosthesis is visualized and appears well-seated. Prosthetic AoV systolic gradients are within normal limits. No significant valvular or paravalvular regurgitation. Annular calcification extending through LVOT. 3. Global LV systolic function normal. The rightventricular chamber size and systolic function are within normal limits. Signature Findings Rhythm/BP Paced rhythm during the exam. 3D imaging (cpt 03604) rendering with interpretation was performed. Left Global LV systolic function normal . Ventricle Left Atrium LA is enlarged. LA appendage morphology is simple (wind sock) . No LA appendage thrombus visualized. Right The right ventricular chamber size and systolic function are Ventricle within normal limits. RV pacing wire isvisualized . Right Atrium RA pacing wire is visualized . Atrial Septum Normal interatrial septum. A patent foramen ovale (PFO) is not demonstrated by color Doppler. Aortic Valve A stented biologic AoV prosthesis is visualized . The prosthetic AoV appears well-seated. Prosthetic AoV systolic gradients are within normal limits. No significant valvular or paravalvular regurgitation. Mitral Valve Severe mitral annular calcification. The submitral apparatus appears thickened and severely calcified . Moderate MV leaflet thickening and mild leaflet calcification. Severe mitral stenosis with mean gradient 10mmHg at paced HR 60 and MVA 1.0cm2 by planimetry. Trace mitral regurgitation. Tricuspid TV structure is normal. Valve A trace of tricuspid regurgitation. Unable to estimate peak systolic PA pressure; i nadequate TR velocity signal. Pulmonic Normal PV structure and function. Valve Aorta Aortic root size (SInus of Valsalva diameter) is normal . Proximal ascending aorta size is normal . Grade 2 plaque (extensive intimal thickening) in the ascending aorta, aortic arch, descending thoracic aorta . Pericardium No significant pericar dial effusion is visualized. Chambers/Structures Left Ventricle LVOT Diameter: 1.78 cm Doppler/Quantitative Measurements Mitral Valve Mean Velocity: 1.53 m/s Mean Gradient: 10.02 mmHg Area (continuity): 0.89 cm^2 MV VTI: 89.65 cm MV Gaurav. Peak: 2.09 m/s Aortic Valve Peak Velocity: 2.38 m/s Mean Velocity: 1.57 m/s Peak Gradient: 22.73mmHg Mean Gradient: 11.75 mmHg AV Area (continuity): 1.61 cm^2 AV VTI: 49.37 cm AV DVI: 0.65 LVOT Peak Velocity: 1.58 m/s Peak Gradient: 9.93 mmHg Mean Velocity: 1 m/s Mean Gradient: 4.81 mmHg LVOT Diameter: 1.78 cm LVOT VTI: 32.01 cm LVOT Area: 2.49 cm^2 LVOT SV:79.62 ml LVOT CO: 4.86 l/min LVOT CI: 2.25 l/min/m^2[facility] [id number] 21:34:00 Test Item Value Reference Range Interpretation Comments POC-GLUCOSE METER 278 mg/dL 70-110 H : TESTED A T [facility] 6720 (BEAKER) (test code = [facility], 1538) [id number]: Chocolate Temperer/Techni hilary ID = [id number] for Annette Sepulveda POCT-GLUCOSE [id number] 18:08:00 Test Item Value Reference Range Interpretation Comments POC-GLUCOSE METER 204 mg/dL 70-110 H : TESTED A T [facility] 6720 (BEAKER) (test code = [facility], 1538) [address]: Chocolate Temperer/Techni hilary ID = [id number] for Nisreen Lara POCT-GLUCOSE [id number] 12:21:00 Test Item Value Reference Range Interpretation Comments POC-GLUCOSE METER 280 mg/dL 70-110 H : TESTED A T [facility] 6720 (BEAKER) (test code = [facility], 1538) [address]: Chocolate Temperer/Techni hilary ID = [id number] for RAND JA ALLISON Pulmonary Funct Lab [id number] 07:38:00Chris Rincon, SLASHER MACHINE OPERATOR, TOBACCO CLASSER 08/19/2020 9:27 [facility] PFT CHARTING REPORT Infection Control/Hand Hygiene procedures followed throughout the encounter with patient: YesPatient Identification Method: Patient name verified on armband, and Medical record on armband, Is the order complete?: Yes Account ID#: [id number] Name: Ariella Parker Birthdate: 1950 Age: 70 y.o. Sex: male Admission Date: 08/16/2020 Patient Status: Inpatient Reasons/Symptom for having the Test?: surgical clearance Type of study/treatment ordered by physician: Bedside Spirometry with bronchodilators Lab Results Component Value Date HGB 11.6 (L) 08/19/2020 Ranges: Adult Male 13 - 16.8 g/dl Adult Female 12 - 15 g/dl 6 Minute Walk (read only) 08/19/2020 08/19/2020 08/19/2020 Pulse - 73 75 SpO2 98 95 99 Study Date: 08/19/20 Study Time: 07 ASSESSMENT History & Physical Mode of Arrival: Testing was performed at patient bedside Pulse: 62 Resp: 18 SPO2: 98% on RA Pain Assessment Pain:None TESTING/THERAPEUTICS Medications ordered or required for procedure: Albuterol, PT EDUCATION/INSTRUCTIONS Barriers to learning: No known barriers to learning. Learning need identified: Yes, Patient/Family/Guradian was informed of the ordered study by the physician Barriers to performing study or treatment: Patient has no known disability to perform the study or treatment. DISCHARGE The study was completed in accordance with the physician's order and patient released from the lab without adverse outcome.[facility] [id number] 07:37:00 Test Item Value Reference Range Interpretation Comments POC-GLUCOSE METER 178 mg/dL 70-110 H : TESTED A T [facility] 6720 (BEAKER) (test code = [facility] [place], 1538) [id number]: Chocolate Temperer/Techni hilary ID = [id number] for JA RANGEL BASIC METABOLIC [id number] 05:32:00 Test Item Value Reference Range Interpretation Comments SODIUM (BEAKER) 140 meq/L 136-145 (test code = 381) POTASSIUM (BEAKER) 4.3 meq/L 3.5-5.1 (test code = 379) CHLORIDE (BEAKER) 99 meq/L 98-107 (test code = 382) CO2 (BEAKER) (test 32 meq/L 22-29 H code = 355) BLOOD UREA NITROGEN 31 mg/dL 7-21 H (BEAKER) (test code = 354) CREATININE (BEAKER) 1.10 mg/dL 0.57-1.25 (test code = 358) GLUCOSE RANDOM 161 mg/dL 70-105 H (BEAKER) (test code = 652) CALCIUM (BEAKER) 8.4 mg/dL 8.4-10.2 (test code = 697) EGFR (BEAKER) (test 66 mL/min/1.73 ESTIMA SUSIE GFR IS code = 1092) sq m NOT ACCURATE CREATININE CLEARANCE IN PREDICTING GLOMERULAR FILTRATION RATE . ESTIMATED GFR I S NOT APPLICABLE FOR DIALYSIS PATIEN TS. Chocolate Temperer ID - ADMINCBC W/PLT COUNT & AUTO [id number] 05:08:00 Test Item Value Reference Range Interpretation Comments WHITE BLOOD CELL COUNT (BEAKER) 11.4 K/ L 3.5-10.5 H (test code = 775) RED BLOOD CELL COUNT (BEAKER) 4.17 M/ L 4.63-6.08 L (test code = 761) HEMOGLOBIN (BEAKER) (test code = 11.6 GM/DL 13.7-17.5 L 410) HEMATOCRIT (BEAKER) (test code = 36.8 % 40.1-51.0 L 411) MEAN CORPUSCULAR VOLUME (BEAKER) 88.2 fL 79.0-92.2 (test code = 753) MEAN CORPUSCULAR HEMOGLOBIN 27.8 pg 25.7-32.2 (BEAKER) (test code = 751) MEAN CORPUSCULAR HEMOGLOBIN CONC 31.5 GM/DL 32.3-36.5 L (BEAKER) (test code = 752) RED CELL DISTRIBUTION WIDTH 14.3 % 11.6-14.4 (BEAKER) (test code = 412) PLATELET COUNT (BEAKER) (test 177 K/CU MM 150-450 code = 756) MEAN PLATELET VOLUME (BEAKER) 10.9 fL 9.4-12.4 (test code = 754) NUCLEATED RED BLOOD CELLS 0 /100 WBC 0-0 (BEAKER) (test code = 413) NEUTROPHILS RELATIVE PERCENT 87 % (BEAKER) (test code = 429) LYMPHOCYTES RELATIVE PERCENT 6 % (BEAKER) (test code = 430) MONOCYTES RELATIVE PERCENT 6 % (BEAKER) (test code = 431) EOSINOPHILS RELATIVE PERCENT 0 % (BEAKER) (test code = 432) BASOPHILS RELATIVE PERCENT 0 % (BEAKER) (test code = 437) NEUTROPHILS ABSOLUTE COUNT 9.88 K/ L 1.78-5.38 H (BEAKER) (test code = 670) LYMPHOCYTES ABSOLUTE COUNT 0.65 K/ L 1.32-3.57 L (BEAKER) (test code = 414) MONOCYTES ABSOLUTE COUNT (BEAKER) 0.72 K/ L 0.30-0.82 (test code = 415) EOSINOPHILS ABSOLUTE COUNT 0.03 K/ L 0.04-0.54 L (BEAKER) (test code = 416) BASOPHILS ABSOLUTE COUNT (BEAKER) 0.01 K/ L 0.01-0.08 (test code = 417) IMMATURE GRANULOCYTES-RELATIVE 1 % 0-1 PERCENT (BEAKER) (test code = 2801) RAD, CHEST, 2 [id number] 00:11:00Reason for exam:->dyspnea [facility] : 1950 Sex: MFINAL REPORT CLINICAL HISTORY: Dyspnea 2 upright images of the chest are submitted. COMPARISON:10/20/2017 The cardiac silhouette is within normal limits for size. There is atherosclerotic calcification of the elongated aorta. Sternotomy wires and a left subclavian, dual-lead pacemaker are in place.. The lungs are hyperinflated. There is central pulmonary vascular engorgement. Diffuse interstitial coarsening and patchy airspace opacities are nonspecific and may reflect some combination of pulmonary vascular congestion, pulmonary edema, atelectasis and scarring.Pneumonitis should be excluded clinically. There is blunting of the right costophrenic sulcus, whichmay reflect a trace effusion or pleural thickening. There is no pneumothorax or acute bony abnormality. Signed: Samantha Mendieta MDReport Verified Date/Time: 08/19/2020 00:11:10 XR chest 2 [id number] 00:11:00Interface, External Ris In - 08/19/2020 12:13 AM CDTFINAL REPORT CLINICAL HISTORY: Dyspnea 2 upright images of the chest are submitted. COMPARISON:10/20/2017 The cardiac silhouette is within normal limits for size. There is atherosclerotic calcification of the elongated aorta. Sternotomy wires and a left subclavian, dual-lead pacemaker are in place.. The lungs are hyperinflated. There is central pulmonary vascular engorgement. Diffuse interstitial coarsening and patchy airspace opacities are nonspecific and may reflect some combination of pulmonary vascular congestion, pulmonary edema, atelectasis and scarring. Pneumonitis should be excluded clinically. There is blunting ofthe right costophrenic sulcus, which may reflect a trace effusion or pleural thickening. There is nopneumothorax or acute bony abnormality. Signed: Samantha Mendieta MDReport Verified Date/Time: 08/19/2020 00:11:10 [facility] [id number] 21:30:00 Test Item Value Reference Range Interpretation Comments POC-GLUCOSE METER 317 mg/dL 70-110 H : TESTED A T [facility] 6720 [facility] (test code = [facility], 1538) [address]: Chocolate Temperer/Techni hilary ID = [id number] for Dennis Doss POCT-GLUCOSE [id number] 17:41:00 Test Item Value Reference Range Interpretation Comments POC-GLUCOSE METER 281 mg/dL 70-110 H : Notified RN/MD: (MALIK) (test code = TESTED AT [facility] 6720 1538) [facility], [id number]: Chocolate Temperer/Techni hilary ID = [id number] for Gibran Bates 2D Echo W/Doppler(CW/PW/Color)2020-08-18 14:04:31Ejection FractionSLEH ECHO HEARTLAB MKCKESSON CPACSInterface, External Ris In - 08/18/2020 2:04 PM C DTTransthoracic Echocardiography Report (TTE) Demographics Patient Name ARIELLA PARKER Dateof Study 08/17/2020 APRIL Gender Male Visit Number [id number] Race Room Number 1414 Number Date of 1950 Referring 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 Amount - 2 mlHeight: 72 inches Weight: 93.44 kg (206 lbs) BSA: 2.16 m^2 BMI: 27.94 kg/m^2HR: 61 bpm BP: 127/69 mmHg Summary 1. The left ventricle is chamber size (by vol index) is normal. Normal LV wall thickness. Septal motion is abnormal, likely related to ventricular pacing and prior cardiac surgery . All other LV segments contract normally. LVEF by Fry's method of disk assessment is normal (>60%). LA size is enlarged 2. There is mild systolic dysfunction of the right ventricle. The right ventricular cavity size is normal. Estimated peak systolic PA pressure is 45-50 mmHg (mild pulmonary hypertension) . 3. Moderate to severe mitral stenosis. Peak MV gradient 16.4, Mean gradient 10.5 at HR of 60. Significant calcification of subvalvular apparatus. Moderate mitral annular calcification. Moderate MV leaflet thickening and calcification. Trivial mitral regurgitation. -MV better interrogated on prior GERRI performed earlier today. 4. A biologic AoV prosthesis is visualized and appears well-seated. AoV dimensionless obstructive index (DOI)) is 0.78 .Peak Grad; 7.8 ,Mean Grad; 4.6. Previous Study Worsening MS compared to prior study in 2018. Signature Findings Left Ventricle LV endocardium is adequately visualized with IV ultrasound enhancing agent. The left ventricle is chamber size (by vol index) is normal (male - LVED vol - 34- 74ml/m2). Normal LV wall thickness. All other LV segments contract normally . LVEF by Fry's method of disk assessment is normal (>60%) . Degree of diastolic dysfunction (LAP assessment) is inconclusive due to mitral stenosis . Septal motion is abnormal, likely related to ventricular pacing and prior cardiac surgery . Left Atrium The left atrium is not well visualized. LA size is enlarged Right Ventricle There is mild systolic dysfunction of the right ventricle. The right ventricular cavity size is normal . Right Atrium RA size is probably normal based on available views. Atrial Septum Normal interatrial septum by available views. IV saline contrast injection was negative for a PFO (patent foramen ovale) at rest and post Valsalva . Aortic Valve A biologic AoV prosthesis is visualized . The prosthetic AoV appears well-seated. AoV dimensionless obstructive index (DOI)) is 0.78 .Peak Grad; 7.8 ,Mean Grad; 4.6 . Mitral Valve Significant calcification of subvalvular apparatus. Moderate mitral annular calcification. Mild MV leaflet thickening. Wsvn-py-sqilvopi mitral regurgitation. Moderate to severe mitral stenosis. Peak MV gradient 16.4, Mean gradient 10.5 at HR of 60 Tricuspid Valve TV structure is normal. Mild tricuspid regurgitation. Estimated peak systolic PA pressure is 45-50 mmHg (mild pulmonary hypertension) . Pulmonic Valve Normal PV structure. Ncix-db-hroxqtpm pulmonary regurgitation. Aorta Aortic root size (SInus of Valsalva diameter) is normal . Pericardium A nelbb-tn-tpozykmm pericardial effusion is present . IVC/SVC/PA/PV/Pleural The estimated RA pressure by IVC dynamics 5-10mmHg . Chambers/Structures Left Atrium LA Volume: 82.36 ml LA Area: 25.49 cm^2 LA Vol. Index: 38 ml/m^2 Left Ventricle LVIDd: 6.21 cm LVIDs: 4.47 cm LV Septum Diastolic: 0.95 cm LV PW Diastolic: 0.75 cm LV FS: 28 % LVEDV Fry's:147.08 ml LVESV Fry's:44.44 ml LVEDVI: 68 ml/m^2LVEF Fry's: 69.8 % LVESVI: 21 ml/m^2 LVOT Diameter: 2.03 cm Right Ventricle RV Diast Dim.: 3.7 cm TAPSE: 1.33 cm Aorta Ao RootS of Leatha.: 3.15 cm Doppler/Quantitative Measurements Mitral Valve MV Peak E-Wave: 2.03 m/s MV Peak A-Wave: 1.71 m/s E/A Ratio: 1.18 Mean Velocity: 1.5 m/s Peak Gradient: 16.44 mmHg Mean Gradient: 10.46 mmHg Deceleration Time: 454.9 msec Area (continuity): 0.87 cm^2 MV VTI: 83.61 cm MV Gaurav. Peak: 2.55 m/s Tissue Doppler E' Septal Velocity: 0.03 m/s A' Septal Velocity: 0.03 m/s E' Lateral Velocity: 0.04 m/s A' Lateral Velocity: 0 .02 m/s E/E': 48.99 Aortic Valve Peak Velocity: 1.4 m/s Mean Velocity: 0.99 m/s Peak Gradient: 7.81 mmHg Mean Gradient: 4.55 mmHg AV Area (continuity): 2.52 cm^2 AV VTI: 29 cm AV DVI: 0.78 LVOT Peak Velocity: 1.08 m/s Peak Gradient: 4.64 mmHg Mean Velocity: 0.77 m/s Mean Gradient: 2.7 mmHg LVOT Diameter: 2.03 cm LVOT VTI: 22.55 cm LVOT Area: 3.24 cm^2 LVOT SV:72.95 ml LVOTCO: 4.45 l/min LVOT CI: 2.06 l/min/m^2 RVOT RVOT VTI (PW): 16.22 cm Tricuspid Valve TR Velocity: 3.06 m/s TR Gradient: 37.33 mmHg Pulmonic Valve Peak Velocity: 1.32 m/s Peak Gradient: 6.98 mmHg Mean Velocity: 0.81 m/s Mean Gradient: 2.59 mmHgCHI [facility] HospitalPOCT-GLUCOSE [id number] 07:58:00 Test Item Value Reference Range Interpretation Comments POC-GLUCOSE METER 160 mg/dL 70-110 H : TESTED A T [facility] 6720 (MALIK) (test code = [facility] [place], 1538) [address]: Chocolate Temperer/Techni hilary ID = [id number] for Starla rodas Antoniomery BASIC METABOLIC [id number] 04:49:00 Test Item Value Reference Range Interpretation Comments SODIUM (BEAKER) 141 meq/L 136-145 (test code = 381) POTASSIUM (BEAKER) 4.5 meq/L 3.5-5.1 (test code = 379) CHLORIDE (BEAKER) 97 meq/L 98-107 L (test code = 382) CO2 (BEAKER) (test 35 meq/L 22-29 H code = 355) BLOOD UREA NITROGEN 32 mg/dL 7-21 H (BEAKER) (test code = 354) CREATININE (BEAKER) 0.97 mg/dL 0.57-1.25 (test code = 358) GLUCOSE RANDOM 197 mg/dL 70-105 H (BEAKER) (test code = 652) CALCIUM (BEAKER) 8.5 mg/dL 8.4-10.2 (test code = 697) EGFR (BEAKER) (test 77 mL/min/1.73 ESTIMA SUSIE GFR IS code = 1092) sq m NOT ACCURATE CREATININE CLEARANCE IN PREDICTING GLOMERULAR FILTRATION RATE . ESTIMATED GFR I S NOT APPLICABLE FOR DIALYSIS PATIEN TS. Chocolate Temperer ID - CECILE MCBC W/PLT COUNT & AUTO [id number] 04:20:00 Test Item Value Reference Range Interpretation Comments WHITE BLOOD CELL COUNT (BEAKER) 10.1 K/ L 3.5-10.5 (test code = 775) RED BLOOD CELL COUNT (BEAKER) 4.19 M/ L 4.63-6.08 L (test code = 761) HEMOGLOBIN (BEAKER) (test code = 11.8 GM/DL 13.7-17.5 L 410) HEMATOCRIT (BEAKER) (test code = 37.1 % 40.1-51.0 L 411) MEAN CORPUSCULAR VOLUME (BEAKER) 88.5 fL 79.0-92.2 (test code = 753) MEAN CORPUSCULAR HEMOGLOBIN 28.2 pg 25.7-32.2 (BEAKER) (test code = 751) MEAN CORPUSCULAR HEMOGLOBIN CONC 31.8 GM/DL 32.3-36.5 L (BEAKER) (test code = 752) RED CELL DISTRIBUTION WIDTH 14.6 % 11.6-14.4 H (BEAKER) (test code = 412) PLATELET COUNT (BEAKER) (test 173 K/CU MM 150-450 code = 756) MEAN PLATELET VOLUME (BEAKER) 11.2 fL 9.4-12.4 (test code = 754) NUCLEATED RED BLOOD CELLS 0 /100 WBC 0-0 (BEAKER) (test code = 413) NEUTROPHILS RELATIVE PERCENT 86 % (BEAKER) (test code = 429) LYMPHOCYTES RELATIVE PERCENT 6 % (BEAKER) (test code = 430) MONOCYTES RELATIVE PERCENT 6 % (BEAKER) (test code = 431) EOSINOPHILS RELATIVE PERCENT 1 % (BEAKER) (test code = 432) BASOPHILS RELATIVE PERCENT 0 % (BEAKER) (test code = 437) NEUTROPHILS ABSOLUTE COUNT 8.67 K/ L 1.78-5.38 H (BEAKER) (test code = 670) LYMPHOCYTES ABSOLUTE COUNT 0.63 K/ L 1.32-3.57 L (BEAKER) (test code = 414) MONOCYTES ABSOLUTE COUNT (BEAKER) 0.59 K/ L 0.30-0.82 (test code = 415) EOSINOPHILS ABSOLUTE COUNT 0.07 K/ L 0.04-0.54 (BEAKER) (test code = 416) BASOPHILS ABSOLUTE COUNT (BEAKER) 0.01 K/ L 0.01-0.08 (test code = 417) IMMATURE GRANULOCYTES-RELATIVE 1 % 0-1 PERCENT (BEAKER) (test code = 2801) POCT-GLUCOSE [id number] 21:19:00 Test Item Value Reference Range Interpretation Comments POC-GLUCOSE METER 278 mg/dL 70-110 H : TESTED A T [facility] 6720 (BEAKER) (test code = [place] [place], 1538) [address]: Chocolate Temperer/Techni hilary ID = [id number] for Dennis Doss SARS-COV2/RT-PCR ([facility])2020-08-17 10:32:00 Test Item Value Reference Range Interpretation Comments SARS-COV2/RT-PCR (test Negative Not Detected, Negative, code = 3800624) See external report for linked test SARS-COV-2 PERFORMING LAB [facility] (test code = 5615141) Negative result for this test determines that SARS-CoV-2 RNA was not present in the specimen above the Limit of Detection (LOD). However, Negative results do not preclude SARS-CoV-2 infection and should not be used as the sole basis for treatment or patient management decisions. Negative results mustbe combined with clinical observations, patient history, and epidemiological information. A false negative result may occur if a specimen is improperly collected, transported or handled. A false negative result should be considered if patient's recent exposures or clinical presentation indicate that COVID-19 (SARS-CoV-2) is likely and diagnostic tests for other causes of illness are negative. Re-testing should be considered in cases of suspected false negatives.The limit of detection for this assay is 800 copies/mL.This SARS CoV-2 test is a real-time RT-PCR test intended for the qualitative detection of nucleic acid from SARS-CoV-2 in a nasopharyngeal swab specimen collected from individuals suspected of COVID-19 by their healthcare provider.This test has not been Food and Drug Administration (FDA) cleared or approved. This is a modified version of an approved Emergency Use Authorization (EUA) and is in the process of review by the FDA. Once authorized by the FDA, the issued EUA will be effective until the declaration that circumstances exist justifying the authorization of the emergency use of in vitro diagnostic tests for detection and/or diagnosis of COVID-19 is terminated under Section 564(b)(2) of the Act or the EUA is revoked under Section 564(g) of the Act.Fact Sheet for Healthcare Providers:https://www.[employer]/sites/default/files/product/documents/Fact_Shee i_EY_Xkbprtsef_Tjmh_QDGW-RtN-0.pdfFact Sheet for Healthcare Patients:https://www.[employer]/sites/default/files/product/ documents/Smii_Bcomq_Brngyrcl_Ysvv_IBVS-TsB-9.pdfPerforming Laboratory:[facility], [place] [address]AQZP-YAFDFHA METER 2020-08-17 08:23:00 Test Item Value Reference Range Interpretation Comments POC-GLUCOSE METER 116 mg/dL 70-110 H : TESTED A T [facility] 6720 (MALIK) (test code = [facility], 1538) [address]: Chocolate Temperer/Techni hilary ID = [id number] for Re Annette mojica BASIC METABOLIC [id number] 06:33:00 Test Item Value Reference Range Interpretation Comments SODIUM (BEAKER) 139 meq/L 136-145 (test code = 381) POTASSIUM (BEAKER) 3.9 meq/L 3.5-5.1 (test code = 379) CHLORIDE (BEAKER) 104 meq/L 98-107 (test code = 382) CO2 (BEAKER) (test 28 meq/L 22-29 code = 355) BLOOD UREA NITROGEN 28 mg/dL 7-21 H (BEAKER) (test code = 354) CREATININE (BEAKER) 0.79 mg/dL 0.57-1.25 (test code = 358) GLUCOSE RANDOM 188 mg/dL 70-105 H (BEAKER) (test code = 652) CALCIUM (BEAKER) 7.2 mg/dL 8.4-10.2 L (test code = 697) EGFR (BEAKER) (test 97 mL/min/1.73 ESTIMA SUSIE GFR IS code = 1092) sq m NOT ACCURATE CREATININE CLEARANCE IN PREDICTING GLOMERULAR FILTRATION RATE . ESTIMATED GFR I S NOT APPLICABLE FOR DIALYSIS PATIEN TS. Chocolate Temperer ID - CECILE EPATIC FUNCTION [id number] 06:28:00 Test Item Value Reference Range Interpretation Comments TOTAL PROTEIN (BEAKER) (test code = 5.1 gm/dL 6.0-8.3 L 770) ALBUMIN (BEAKER) (test code = 1145) 2.8 g/dL 3.5-5.0 L BILIRUBIN TOTAL (BEAKER) (test code 0.8 mg/dL 0.2-1.2 = 377) BILIRUBIN DIRECT (BEAKER) (test 0.4 mg/dL 0.1-0.5 code = 706) ALKALINE PHOSPHATASE (BEAKER) (test 46 U/L 40-150 code = 346) AST (SGOT) (BEAKER) (test code = 22 U/L 5-34 353) ALT (SGPT) (BEAKER) (test code = 57 U/L 6-55 H 347) Chocolate Temperer ID - CECILE MB-TYPE NATRIURETIC FACTOR (BNP)2020-08-17 06:14:00 Test Item Value Reference Range Interpretation Comments B-TYPE NATRIURETIC PEPTIDE (BEAKER) 191 pg/mL 0-100 H (test code = 700) Chocolate Temperer ID - CECILE MCBC W/PLT COUNT & AUTO [id number] 05:45:00 Test Item Value Reference Range Interpretation Comments WHITE BLOOD CELL COUNT (BEAKER) 9.0 K/ L 3.5-10.5 (test code = 775) RED BLOOD CELL COUNT (BEAKER) 3.70 M/ L 4.63-6.08 L (test code = 761) HEMOGLOBIN (BEAKER) (test code = 10.3 GM/DL 13.7-17.5 L 410) HEMATOCRIT (BEAKER) (test code = 33.2 % 40.1-51.0 L 411) MEAN CORPUSCULAR VOLUME (BEAKER) 89.7 fL 79.0-92.2 (test code = 753) MEAN CORPUSCULAR HEMOGLOBIN 27.8 pg 25.7-32.2 (BEAKER) (test code = 751) MEAN CORPUSCULAR HEMOGLOBIN CONC 31.0 GM/DL 32.3-36.5 L (BEAKER) (test code = 752) RED CELL DISTRIBUTION WIDTH 14.6 % 11.6-14.4 H (BEAKER) (test code = 412) PLATELET COUNT (BEAKER) (test 146 K/CU MM 150-450 L code = 756) MEAN PLATELET VOLUME (BEAKER) 10.9 fL 9.4-12.4 (test code = 754) NUCLEATED RED BLOOD CELLS 0 /100 WBC 0-0 (BEAKER) (test code = 413) NEUTROPHILS RELATIVE PERCENT 89 % (BEAKER) (test code = 429) LYMPHOCYTES RELATIVE PERCENT 5 % (BEAKER) (test code = 430) MONOCYTES RELATIVE PERCENT 5 % (BEAKER) (test code = 431) EOSINOPHILS RELATIVE PERCENT 0 % (BEAKER) (test code = 432) BASOPHILS RELATIVE PERCENT 0 % (BEAKER) (test code = 437) NEUTROPHILS ABSOLUTE COUNT 8.02 K/ L 1.78-5.38 H (BEAKER) (test code = 670) LYMPHOCYTES ABSOLUTE COUNT 0.45 K/ L 1.32-3.57 L (BEAKER) (test code = 414) MONOCYTES ABSOLUTE COUNT (BEAKER) 0.45 K/ L 0.30-0.82 (test code = 415) EOSINOPHILS ABSOLUTE COUNT 0.01 K/ L 0.04-0.54 L (BEAKER) (test code = 416) BASOPHILS ABSOLUTE COUNT (BEAKER) 0.01 K/ L 0.01-0.08 (test code = 417) IMMATURE GRANULOCYTES-RELATIVE 1 % 0-1 PERCENT (BEAKER) (test code = 2801) POCT-GLUCOSE [id number] 22:01:00 Test Item Value Reference Range Interpretation Comments POC-GLUCOSE METER 210 mg/dL 70-110 H : TESTED [facility] 6720 (BEAKER) (test code = [place], 1538) [address]: Chocolate Temperer/Techni hilary ID = [id number] for Annette Sepulveda BASIC METABOLIC [id number] 19:25:00 Test Item Value Reference Range Interpretation Comments SODIUM (BEAKER) 142 meq/L 136-145 (test code = 381) POTASSIUM (BEAKER) 4.7 meq/L 3.5-5.1 (test code = 379) CHLORIDE (BEAKER) 100 meq/L 98-107 (test code = 382) CO2 (BEAKER) (test 34 meq/L 22-29 H code = 355) BLOOD UREA NITROGEN 29 mg/dL 7-21 H (BEAKER) (test code = 354) CREATININE (BEAKER) 0.89 mg/dL 0.57-1.25 (test code = 358) GLUCOSE RANDOM 160 mg/dL 70-105 H (BEAKER) (test code = 652) CALCIUM (BEAKER) 8.9 mg/dL 8.4-10.2 (test code = 697) EGFR (BEAKER) (test 85 mL/min/1.73 ESTIMA SUSIE GFR IS code = 1092) sq m NOT ACCURATE CREATININE CLEARANCE IN PREDICTING GLOMERULAR FILTRATION RATE . ESTIMATED GFR I S NOT APPLICABLE FOR DIALYSIS PATIEN TS. Chocolate Temperer ID - DBCBC W/PLT COUNT & AUTO [id number] 19:04:00 Test Item Value Reference Range Interpretation Comments WHITE BLOOD CELL COUNT (BEAKER) 10.2 K/ L 3.5-10.5 (test code = 775) RED BLOOD CELL COUNT (BEAKER) 3.95 M/ L 4.63-6.08 L (test code = 761) HEMOGLOBIN (BEAKER) (test code = 11.1 GM/DL 13.7-17.5 L 410) HEMATOCRIT (BEAKER) (test code = 35.4 % 40.1-51.0 L 411) MEAN CORPUSCULAR VOLUME (BEAKER) 89.6 fL 79.0-92.2 (test code = 753) MEAN CORPUSCULAR HEMOGLOBIN 28.1 pg 25.7-32.2 (BEAKER) (test code = 751) MEAN CORPUSCULAR HEMOGLOBIN CONC 31.4 GM/DL 32.3-36.5 L (BEAKER) (test code = 752) RED CELL DISTRIBUTION WIDTH 14.6 % 11.6-14.4 H (BEAKER) (test code = 412) PLATELET COUNT (BEAKER) (test 172 K/CU MM 150-450 code = 756) MEAN PLATELET VOLUME (BEAKER) 10.9 fL 9.4-12.4 (test code = 754) NUCLEATED RED BLOOD CELLS 0 /100 WBC 0-0 (BEAKER) (test code = 413) NEUTROPHILS RELATIVE PERCENT 89 % (BEAKER) (test code = 429) LYMPHOCYTES RELATIVE PERCENT 4 % (BEAKER) (test code = 430) MONOCYTES RELATIVE PERCENT 5 % (BEAKER) (test code = 431) EOSINOPHILS RELATIVE PERCENT 1 % (BEAKER) (test code = 432) BASOPHILS RELATIVE PERCENT 0 % (BEAKER) (test code = 437) NEUTROPHILS ABSOLUTE COUNT 9.03 K/ L 1.78-5.38 H (BEAKER) (test code = 670) LYMPHOCYTES ABSOLUTE COUNT 0.44 K/ L 1.32-3.57 L (BEAKER) (test code = 414) MONOCYTES ABSOLUTE COUNT (BEAKER) 0.52 K/ L 0.30-0.82 (test code = 415) EOSINOPHILS ABSOLUTE COUNT 0.13 K/ L 0.04-0.54 (BEAKER) (test code = 416) BASOPHILS ABSOLUTE COUNT (BEAKER) 0.00 K/ L 0.01-0.08 L (test code = 417) IMMATURE GRANULOCYTES-RELATIVE 1 % 0-1 PERCENT (BEAKER) (test code = 2801) AFB CULTURE + [id number] 12:58:00 Test Item Value Reference Range Interpretation Comments CULTURE (BEAKER) (test No acid-fast bacilli code = 1095) isolated in 42 days AFB SMEAR (BEAKER) No acid fast bacilli (test code = 994) seen FUNGUS CULTURE + [id number] 12:55:00 Test Item Value Reference Range Interpretation Comments CULTURE (BEAKER) (test No fungus isolated in code = 1095) 28 days FUNGUS SMEAR (BEAKER) No fungi seen (test code = 1406) [id number] 06:12:00 Test Item Value Reference Range Interpretation Comments MAGNESIUM (BEAKER) (test code = 1.8 mg/dL 1.6-2.6 627) BASIC METABOLIC [id number] 06:12:00 Test Item Value Reference Range Interpretation [...] 697) EGFR (BEAKER) (test 63 mL/min/1.73 ESTIMA SUSIE GFR IS code = 1092) sq m NOT ACCURATE CREATININE CLEARANCE IN PREDICTING GLOMERULAR FILTRATION RATE . ESTIMATED GFR I S NOT APPLICABLE FOR DIALYSIS PATIEN TS. PROTHROMBIN [id number] 05:58:00 Test Item Value Reference Range Interpretation Comments PROTIME (BEAKER) (test code = 28.3 seconds 11.7-14.7 H 759) INR (BEAKER) (test code = 370) 2.7 <=5.9 RECOMMENDED COUMADIN/WARFARIN INR THERAPY RANGESSTANDARD DOSE: 2.0 - 3.0 Includes: PROPHYLAXIS forvenous thrombosis, systemic embolization; TREATMENT for venous thrombosis and/or pulmonary embolus.HIGH RISK: Target INR is 2.5-3.5 for patients with mechanical heart valves.[id number] 07:12:00 Test Item Value Reference Range Interpretation Comments MAGNESIUM (BEAKER) (test code = 1.9 mg/dL 1.6-2.6 627) BASIC METABOLIC [id number] 07:12:00 Test Item Value Reference Range Interpretation [...] 697) EGFR (BEAKER) (test 66 mL/min/1.73 ESTIMA SUSIE GFR IS code = 1092) sq m NOT ACCURATE CREATININE CLEARANCE IN PREDICTING GLOMERULAR FILTRATION RATE . ESTIMATED GFR I S NOT APPLICABLE FOR DIALYSIS PATIEN TS. PROTHROMBIN [id number] 07:03:00 Test Item Value Reference Range Interpretation [...] 0-0 (BEAKER) (test code = 413) PROTHROMBIN [id number] 06:31:00 Test Item Value Reference Range Interpretation Comments PROTIME (BEAKER) (test code = 19.7 seconds 11.7-14.7 H 759) INR (BEAKER) (test code = 370) 1.7 <=5.9 RECOMMENDED COUMADIN/WARFARIN INR THERAPY RANGESSTANDARD DOSE: 2.0 - 3.0 Includes: PROPHYLAXIS forvenous thrombosis, systemic embolization; TREATMENT for venous thrombosis and/or pulmonary embolus.HIGH RISK: Target INR is 2.5-3.5 for patients with mechanical heart valves.BASIC METABOLIC [id number] 07:22:00 Test Item Value Reference Range Interpretation [...] 697) EGFR (BEAKER) (test 68 mL/min/1.73 ESTIMA SUSIE GFR IS code = 1092) sq m NOT ACCURATE CREATININE CLEARANCE IN PREDICTING GLOMERULAR FILTRATION RATE . ESTIMATED GFR I S NOT APPLICABLE FOR DIALYSIS PATIEN TS. PROTHROMBIN [id number] 05:55:00 Test Item Value Reference Range Interpretation Comments PROTIME (BEAKER) (test code = 16.6 seconds 11.7-14.7 H 759) INR (BEAKER) (test code = 370) 1.3 <=5.9 RECOMMENDED COUMADIN/WARFARIN INR THERAPY RANGESSTANDARD DOSE: 2.0 - 3.0 Includes: PROPHYLAXIS forvenous thrombosis, systemic embolization; TREATMENT for venous thrombosis and/or pulmonary embolus.HIGH RISK: Target INR is 2.5-3.5 for patients with mechanical heart valves.CALCIUM, [id number] 05:54:00 Test Item Value Reference Range Interpretation [...] 0-0 (BEAKER) (test code = 413) CALCIUM, [id number] 04:33:00 Test Item Value Reference Range Interpretation Comments CALCIUM IONIZED (BEAKER) (test 1.01 mmol/L 1.12-1.27 L code = 698) PH, BLOOD (BEAKER) (test code = 7.36 1810) Check serum Ionized Calcium level after 4 hours after IV Calcium replacement. BASIC METABOLIC [id number] 04:27:00 Test Item Value Reference Range Interpretation [...] 697) EGFR (BEAKER) (test 64 mL/min/1.73 ESTIMA SUSIE GFR IS code = 1092) sq m NOT ACCURATE CREATININE CLEARANCE IN PREDICTING GLOMERULAR FILTRATION RATE . ESTIMATED GFR I S NOT APPLICABLE FOR DIALYSIS PATIEN TS. [id number] 04:25:00 Test Item Value Reference Range Interpretation Comments MAGNESIUM (BEAKER) (test code = 1.8 mg/dL 1.6-2.6 627) PROTHROMBIN [id number] 04:09:00 Test Item Value Reference Range Interpretation [...] (test code = 413) RAD, CHEST, 2 [id number] 16:20:00Reason for exam:->S/P PACEMAKERShould this be performed at the bedside?->NoFINAL REPORT CLINICAL HISTORY: S/P PACEMAKER TECHNIQUE: 2 views of the chest COMPARISON: 10/18/2017 IMPRESSION: A left chest wall pacemaker is again seen without pneumothorax. Theright central line is unchanged. Bilateral airspace opacities and small pleural effusions are unchanged. Cardiomegaly is again seen poststernotomy. Signed: Darius Enciso MDReport Verified Date/Time: 10/20/2017 16:20:59 Reading Location: [address] Consult Reading Room PROTHROMBIN TIME/INR 2017-10-20 10:42:00 [...] pg/mL 0-100 H (test code = 700) [id number] 07:17:00 Test Item Value Reference Range Interpretation Comments MAGNESIUM (BEAKER) (test code = 2.1 mg/dL 1.6-2.6 627) BASIC METABOLIC [id number] 07:17:00 Test Item Value Reference Range Interpretation [...] 697) EGFR (BEAKER) (test 71 mL/min/1.73 ESTIMA SUSIE GFR IS code = 1092) sq m [...] (BEAKER) (test code = 413) HEMOGLOBIN AND [id number] 11:46:00 Test Item Value Reference Range Interpretation [...] (BEAKER) (test code = 413) BASIC METABOLIC [id number] 05:35:00 Test Item Value Reference Range Interpretation [...] 697) EGFR (BEAKER) (test 62 mL/min/1.73 ESTIMA SUSIE GFR IS code = 1092) sq m NOT ACCURATE CREATININE CLEARANCE IN PREDICTING GLOMERULAR FILTRATION RATE . ESTIMATED GFR I S NOT APPLICABLE FOR DIALYSIS PATIEN TS. [id number] 05:33:00 Test Item Value Reference Range Interpretation Comments MAGNESIUM (BEAKER) (test code = 2.0 mg/dL 1.6-2.6 627) RAD, CHEST, 1 VIEW, NON [id number] 18:14:00Reason for exam:->s/p PPM implantShould this be performed at the bedside?->YesFINAL REPORT Chest, one view. HISTORY: Pacemaker COMPARISON: 10/18/2017 at 2:59 AM IMPRESSION: Interval placement of a dual-lead left subclavian pacemaker. No identifiable pneumothorax. Right IJ catheter unchanged in position. Unchanged enlargement of the cardiomediastinal silhouette. Unchanged moderate interstitial edema and patchy opacities bilaterally. Trace bilateral pleural effusions. Signed: Bao Staton MDReport Verified Date/Time: 10/18/2017 18:14:36 Reading Location:[facility] C013W Consult Reading Room CALCIUM, [id number] 04:33:00 Test Item Value Reference Range Interpretation [...] = 413) RAD, CHEST, 1 VIEW, NON [id number] 03:52:00Reason for exam:->eval pulmonary congestionFINAL REPORT RAD, CHEST, 1 VIEW, NON DEPT INDICATION: eval pulmonary congestion COMPARISON: Prior day's exam FINDINGS: Portable frontal view of the chest. IMPRESSION: Support Lines: Right IJ central venous catheter is stable. Lungs and pleura: Interstitial coarsening suggestsedema or atypical infection. Persistent bilateral effusions. No pneumothorax.Heart and mediastinum: Stable contours. Stable surgical changes.Additional findings: None. Signed: JR Monatño Robert MDReport Verified Date/Time: 10/18/2017 03:52:09 Reading Location: [facility] C013Y CT Body Reading Room [id number] 03:50:00 Test Item Value Reference Range Interpretation Comments MAGNESIUM (BEAKER) (test code = 2.2 mg/dL 1.6-2.6 627) BASIC METABOLIC [id number] 03:50:00 Test Item Value Reference Range Interpretation [...] 697) EGFR (BEAKER) (test 48 mL/min/1.73 ESTIMA SUSIE GFR IS code = 1092) sq m NOT ACCURATE CREATININE CLEARANCE IN PREDICTING GLOMERULAR FILTRATION RATE . ESTIMATED GFR I S NOT APPLICABLE FOR DIALYSIS PATIEN TS. [id number] 17:18:00 Test Item Value Reference Range Interpretation Comments POTASSIUM (BEAKER) (test code = 4.1 meq/L 3.5-5.1 379) Check Serum Potassium level 2 hours after oral potassium replacement completed or 30 min after intravenous potassium replacement.[id number] 17:18:00 Test Item Value Reference Range Interpretation Comments MAGNESIUM (BEAKER) (test code = 2.2 mg/dL 1.6-2.6 627) Check Serum Potassium level 2 hours after oral potassium replacement completed or 30 min after intravenous potassium replacement.CALCIUM, [id number] 16:53:00 Test Item Value Reference Range Interpretation Comments CALCIUM IONIZED (BEAKER) (test 1.03 mmol/L 1.12-1.27 L code = 698) PH, BLOOD (BEAKER) (test code = 7.45 1810) Check serum Ionized Calcium level after 4 hours after IV Calcium replacement. RAD, CHEST, 1 VIEW, NON [id number] 06:13:00Reason for exam:->eval pulmonary congestionFINAL REPORT Chest [...] There is no pneumothorax. S igned: Dom Pro MDReport Verified Date/Time: 10/17/2017 06:13:55 Reading Location: [address] Transitional Reading Room ANAEROBIC [id number] 05:47:00 Test Item Value Reference Range Interpretation Comments CULTURE (BEAKER) (test No anaerobes isolated code = 1095) CALCIUM, [id number] 05:38:00 Test Item Value Reference Range Interpretation [...] 0-0 H (BEAKER) (test code = 413) [id number] 05:00:00 Test Item Value Reference Range Interpretation Comments MAGNESIUM (BEAKER) (test code = 2.1 mg/dL 1.6-2.6 627) BASIC METABOLIC [id number] 05:00:00 Test Item Value Reference Range Interpretation [...] 697) EGFR (BEAKER) (test 52 mL/min/1.73 ESTIMA SUSIE GFR IS code = 1092) sq m NOT ACCURATE CREATININE CLEARANCE IN PREDICTING GLOMERULAR FILTRATION RATE . ESTIMATED GFR I S NOT APPLICABLE FOR DIALYSIS PATIEN TS. [id number] 21:28:00 Test Item Value Reference Range Interpretation Comments PHOSPHORUS (BEAKER) (test code = 3.7 mg/dL 2.3-4.7 604) [id number] 21:28:00 Test Item Value Reference Range Interpretation Comments MAGNESIUM (BEAKER) (test code = 1.8 mg/dL 1.6-2.6 627) BASIC METABOLIC [id number] 21:28:00 Test Item Value Reference Range Interpretation [...] 697) EGFR (BEAKER) (test 62 mL/min/1.73 ESTIMA SUSIE GFR IS code = 1092) sq m NOT ACCURATE CREATININE CLEARANCE IN PREDICTING GLOMERULAR FILTRATION RATE . ESTIMATED GFR I S NOT APPLICABLE FOR DIALYSIS PATIEN TS. HEMOGLOBIN AND [id number] 21:11:00 Test Item Value Reference Range Interpretation Comments HEMOGLOBIN (BEAKER) (test code = 7.7 GM/DL 13.7-17.5 L 410) HEMATOCRIT (BEAKER) (test code = 22.8 % 40.1-51.0 L 411) CALCIUM, [id number] 21:07:00 Test Item Value Reference Range Interpretation Comments CALCIUM IONIZED (BEAKER) (test 1.01 mmol/L 1.12-1.27 L code = 698) PH, BLOOD (BEAKER) (test code = 7.46 1810) RAD, CHEST, 1 VIEW, NON [id number] 17:07:00Reason for exam:->Line PlacementShould this be performed [...] Sternotomy wires are present. Signed: Flaco Workman MDReport Verified Date/Time: 10/16/2017 17:07:17 Reading Location: [address] Transitional Reading Room RAD, CHEST, 1 VIEW, NON [id number] 06:50:00Reason for exam:->eval pulmonary congestionFINAL REPORT Chest [...] excluded. There is no pneumothorax. Signed: Dom Pro MDReport Verified Date/Time: 10/16/2017 06:50:42 Reading Location: [address] Transitional Reading Room CALCIUM, [id number] 05:43:00 Test Item Value Reference Range Interpretation Comments CALCIUM IONIZED (BEAKER) (test 1.04 mmol/L 1.12-1.27 L code = 698) PH, BLOOD (BEAKER) (test code = 7.44 1810) BASIC METABOLIC [id number] 04:43:00 Test Item Value Reference Range Interpretation [...] 697) EGFR (BEAKER) (test 55 mL/min/1.73 ESTIMA SUSIE GFR IS code = 1092) sq m NOT ACCURATE CREATININE CLEARANCE IN PREDICTING GLOMERULAR FILTRATION RATE . ESTIMATED GFR I S NOT APPLICABLE FOR DIALYSIS PATIEN TS. [id number] 04:39:00 Test Item Value Reference Range Interpretation [...] (BEAKER) (test code = 413) HEMOGLOBIN AND [id number] 12:22:00 Test Item Value Reference Range Interpretation Comments HEMOGLOBIN (BEAKER) (test code = 7.7 GM/DL 13.7-17.5 L 410) HEMATOCRIT (BEAKER) (test code = 23.5 % 40.1-51.0 L 411) POCT-GLUCOSE [id number] 08:53:00 Test Item Value Reference Range Interpretation Comments POC-GLUCOSE METER 135 mg/dL 70-110 H TESTED AT [facility] 6720 (BEAKER) (test code = [place] 1538) [address] [id number] 04:32:00 Test Item Value Reference Range Interpretation Comments MAGNESIUM (BEAKER) (test code = 1.9 mg/dL 1.6-2.6 627) BASIC METABOLIC [id number] 04:32:00 Test Item Value Reference Range Interpretation [...] 697) EGFR (BEAKER) (test 58 mL/min/1.73 ESTIMA SUSIE GFR IS code = 1092) sq m NOT ACCURATE CREATININE CLEARANCE IN PREDICTING GLOMERULAR FILTRATION RATE . ESTIMATED GFR I S NOT APPLICABLE FOR DIALYSIS PATIEN TS. CBC W/PLT COUNT & AUTO [id number] 04:13:00 Test Item Value Reference Range Interpretation [...] = 2801) RAD, CHEST, 1 VIEW, NON [id number] 19:51:00Reason for exam:->sobShould this be performed at [...] pleural effusion without significant change. Signed: Preston Zepeda MDReport Verified Date/Time: 10/14/2017 19:51:09 Reading Location: [facility] C0W Consult Reading Room SURGICALLY OBTAINED CULTURE + GRAM [id number] 11:46:00 Test Item Value Reference Range Interpretation Comments CULTURE (BEAKER) (test code No growth = 1095) GRAM STAIN RESULT (BEAKER) No WBCs (test code = 1123) GRAM STAIN RESULT (BEAKER) No organisms seen (test code = 07811) TROPONIN [id number] 09:49:00 Test Item Value Reference Range Interpretation Comments TROPONIN I (BEAKER) (test code = 1.94 ng/mL 0.00-0.03 HH 397) Troponin I (TnI) levels must be [...] CK-MB Reference Range:<6.7 Normal6.7-10.0 Borderline>10.0 AbnormalHEPATIC FUNCTION [id number] 09:35:00 Test Item Value Reference Range Interpretation [...] = 22 U/L 6-55 347) BASIC METABOLIC [id number] 09:35:00 Test Item Value Reference Range Interpretation [...] 697) EGFR (BEAKER) (test 62 mL/min/1.73 ESTIMA SUSIE GFR IS code = 1092) sq m NOT ACCURATE CREATININE CLEARANCE IN PREDICTING GLOMERULAR FILTRATION RATE . ESTIMATED GFR I S NOT APPLICABLE FOR DIALYSIS PATIEN TS. LACTIC ACID, ARTERIAL, WHOLE [id number] 09:30:00 Test Item Value Reference Range Interpretation Comments LACTATE BLOOD ARTERIAL (2) 1.0 mmol/L 0.5-2.2 (BEAKER) (test code = 2874) Effective 10/08/2015: Units/Reference Range ChangeNew: 0.5-2.2 mmol/L Previous: 5-20 mg/dLPT/[id number] 09:24:00 Test Item Value Reference Range Interpretation [...] for patients with mechanical heart valves.BLOOD GAS, [id number] 09:02:00 Test Item Value Reference Range Interpretation [...] 32.0 % RAD, CHEST, 1 VIEW, NON [id number] 07:09:00Reason for exam:->s/p AVRShould this be performed at the bedside?->YesFINAL REPORT Chest one view AP 10/14/2017 7:09 AM CLINICAL INDICATION: s/p AVR COMPARISON: 10/13/2017 IMPRESSION: Cardiomediastinal contours are stable. There is mild pulmonary edema. There is bibasilar atelectasis. There is a trace left pleural effusion. There is a tiny left apical pneumothorax. Sternotomy wires remain midline. Signed: Eun Servin [facility] Verified Date/Time: 10/14/2017 07:09:30 Reading Location: [facility] Radiology Reading Room MAGNESIUM 2017-10-14 06:02:00 Test Item Value Reference Range Interpretation Comments MAGNESIUM (BEAKER) (test code = 2.0 mg/dL 1.6-2.6 627) BASIC METABOLIC [id number] 06:02:00 Test Item Value Reference Range Interpretation [...] 697) EGFR (BEAKER) (test 52 mL/min/1.73 ESTIMA SUSIE GFR IS code = 1092) sq m NOT ACCURATE CREATININE CLEARANCE IN PREDICTING GLOMERULAR FILTRATION RATE . ESTIMATED GFR I S NOT APPLICABLE FOR DIALYSIS PATIEN TS. CBC W/PLT COUNT & AUTO [id number] 05:54:00 Test Item Value Reference Range Interpretation [...] PERCENT (BEAKER) (test code = 2801) POCT-GLUCOSE [id number] 23:27:00 Test Item Value Reference Range Interpretation Comments POC-GLUCOSE METER 164 mg/dL 70-110 H TESTED AT [facility] [address] ([facility]) (test code = [facility] 1538) [address] POCT-GLUCOSE [id number] 17:21:00 Test Item Value Reference Range Interpretation Comments POC-GLUCOSE METER 154 mg/dL 70-110 H TESTED AT [place] [address] ([facility]) (test code = [facility] 1538) [address] POCT-GLUCOSE [id number] 14:41:00 Test Item Value Reference Range Interpretation Comments POC-GLUCOSE METER 157 mg/dL 70-110 H TESTED AT [place] [address] ([facility]) (test code = [facility] 1538) [id number] POCT-GLUCOSE [id number] 11:51:00 Test Item Value Reference Range Interpretation Comments POC-GLUCOSE METER 155 mg/dL 70-110 H TESTED AT [place] [address] ([facility]) (test code = [facility] 1538) [address] RAD, CHEST, 1 VIEW, NON [id number] 10:20:00Reason for exam:->s/p AVR, pleural effusionShould this be performed at the bedside?->YesFINAL REPORT Chest 2 views AP 10/13/2017 10:20 AM CLINICAL INDICATION: s/p AVR, pleural effusion COMPARISON: 10/12/2017 IMPRESSION: Remaining support hardware is unchanged in position. Cardiomediastinal contours are stable. There is mild/moderate pulmonary edema with bibasilar atelectasis. No pneumothorax is evident. Signed: Eun Servin Verified Date/Time: 10/13/2017 10:20:39 Reading Location: [facility] Reading Room POCT- GLUCOSE [id number] 07:46:00 Test Item Value Reference Range Interpretation Comments POC-GLUCOSE METER 151 mg/dL 70-110 H TESTED AT [facility] 6720 (BEAKER) (test code = [place] [place] 1538) [id number] BASIC METABOLIC [id number] 05:31:00 Test Item Value Reference Range Interpretation [...] 697) EGFR (BEAKER) (test 48 mL/min/1.73 ESTIMA SUSIE GFR IS code = 1092) sq m NOT ACCURATE CREATININE CLEARANCE IN PREDICTING GLOMERULAR FILTRATION RATE . ESTIMATED GFR I S NOT APPLICABLE FOR DIALYSIS PATIEN TS. [id number] 05:30:00 Test Item Value Reference Range Interpretation Comments MAGNESIUM (BEAKER) 2.2 mg/dL 1.6-2.6 Specimen slightly (test code = 627) hemolyzed CBC W/PLT COUNT & AUTO [id number] 17:33:00 Test Item Value Reference Range Interpretation [...] PERCENT (BEAKER) (test code = 2801) POCT-GLUCOSE [id number] 15:53:00 Test Item Value Reference Range Interpretation Comments POC-GLUCOSE METER 181 mg/dL 70-110 H TESTED AT [facility] 67[facility] (BEAKER) (test code = [facility] [place] 3110) [id number] CBC (HEMOGRAM ONLY)2017-10-12 11:48:00 Test Item Value [...] 0-0 (test code = 413) BLOOD GAS, [id number] 07:51:00 Test Item Value Reference Range Interpretation [...] TEMPERATURE (BEAKER) 37.0 C (test code = 1816) POCT-GLUCOSE [id number] 06:34:00 Test Item Value Reference Range Interpretation Comments POC-GLUCOSE METER 126 mg/dL 70-110 H TESTED AT [facility] 6720 (BEAKER) (test code = [place] 1538) [address] RAD, CHEST, 1 VIEW, NON [id number] 03:51:00while patient is intubated or has chest [...] pneumothorax. Short- term imaging surveillance recommended. Signed: Jorge Nicholson Verified Date/Time: 10/12/2017 03:51:38 Reading Location: [address] Reading Room [id number] 03:35:00 Test Item Value Reference Range Interpretation Comments PHOSPHORUS (BEAKER) (test code = 4.9 mg/dL 2.3-4.7 H 604) [id number] 03:35:00 Test Item Value Reference Range Interpretation Comments MAGNESIUM (BEAKER) (test code = 2.2 mg/dL 1.6-2.6 627) BASIC METABOLIC [id number] 03:35:00 Test Item Value Reference Range Interpretation [...] 697) EGFR (BEAKER) (test 36 mL/min/1.73 ESTIMA SUSIE GFR IS code = 1092) sq m NOT ACCURATE CREATININE CLEARANCE IN PREDICTING GLOMERULAR FILTRATION RATE . ESTIMATED GFR I S NOT APPLICABLE FOR DIALYSIS PATIEN TS. GLUCOSE-STAT [id number] 03:30:00 Test Item Value Reference Range Interpretation Comments GLUCOSE RANDOM (BEAKER) (test code 192 mg/dL 70-110 H = 652) Post extubation ABGBLOOD GAS, [id number] 03:29:00 Test Item Value Reference Range Interpretation [...] Post extubation ABGCBC W/PLT COUNT & AUTO [id number] 03:27:00 Test Item Value Reference Range Interpretation [...] (BEAKER) (test code = 2801) BLOOD GAS, [id number] 02:09:00 Test Item Value Reference Range Interpretation [...] (BEAKER) (test code = 1819) 40.0 % [id number] 00:42:00 Test Item Value Reference Range Interpretation Comments MAGNESIUM (BEAKER) (test code = 2.3 mg/dL 1.6-2.6 627) LACTIC ACID, ARTERIAL, WHOLE [id number] 00:37:00 Test Item Value Reference Range Interpretation Comments LACTATE BLOOD ARTERIAL (2) 7.5 mmol/L 0.5-2.2 H (BEAKER) (test code = 2874) Effective 10/08/2015: Units/Reference Range ChangeNew: 0.5-2.2 mmol/L Previous: 5-20 mg/dLSODIUM NA-STAT [id number] 00:30:00 Test Item Value Reference Range Interpretation Comments SODIUM (BEAKER) (test code = 381) 142 meq/L 135-148 POTASSIUM-STAT [id number] 00:30:00 Test Item Value Reference Range Interpretation Comments POTASSIUM (BEAKER) (test code = 4.2 meq/L 3.6-5.5 379) CALCIUM, [id number] 00:30:00 Test Item Value Reference Range Interpretation Comments CALCIUM IONIZED (BEAKER) (test 1.12 mmol/L 1.12-1.27 code = 698) PH, BLOOD (BEAKER) (test code = 7.34 1810) BLOOD GAS, [id number] 00:30:00 Test Item Value Reference Range Interpretation [...] (test code = 1819) 40.0 % GLUCOSE-STAT [id number] 00:30:00 Test Item Value Reference Range Interpretation Comments GLUCOSE RANDOM (BEAKER) (test code 181 mg/dL 70-110 H = 652) HGB/HCT (H&H) - STAT [id number] 00:30:00 Test Item Value Reference Range Interpretation Comments HEMOGLOBIN (BEAKER) (test code = 8.2 g/dL 13.0-16.8 L 410) HEMATOCRIT (BEAKER) (test code = 24.0 % 40.0-50.0 L 411) LACTIC ACID, ARTERIAL, WHOLE [id number] 21:47:00 Test Item Value Reference Range Interpretation Comments LACTATE BLOOD ARTERIAL (2) 8.9 mmol/L 0.5-2.2 H (BEAKER) (test code = 2874) Effective 10/08/2015: Units/Reference Range ChangeNew: 0.5-2.2 mmol/L Previous: 5-20 mg/dLBLOOD GAS, [id number] 21:26:00 Test Item Value Reference Range Interpretation [...] 1819) 40.0 % LACTIC ACID, ARTERIAL, WHOLE [id number] 19:29:00 Test Item Value Reference Range Interpretation Comments LACTATE BLOOD ARTERIAL (2) 7.1 mmol/L 0.5-2.2 H (BEAKER) (test code = 2874) Effective 10/08/2015: Units/Reference Range ChangeNew: 0.5-2.2 mmol/L Previous: 5-20 mg/dLSODIUM NA-STAT [id number] 19:16:00 Test Item Value Reference Range Interpretation Comments SODIUM (BEAKER) (test code = 381) 141 meq/L 135-148 POTASSIUM-STAT [id number] 19:16:00 Test Item Value Reference Range Interpretation Comments POTASSIUM (BEAKER) (test code = 3.8 meq/L 3.6-5.5 379) BLOOD GAS, [id number] 19:16:00 Test Item Value Reference Range Interpretation [...] (test code = 1819) 40.0 % GLUCOSE-STAT [id number] 19:16:00 Test Item Value Reference Range Interpretation Comments GLUCOSE RANDOM (BEAKER) (test code 162 mg/dL 70-110 H = 652) HGB/HCT (H&H) - STAT [id number] 19:16:00 Test Item Value Reference Range Interpretation Comments HEMOGLOBIN (BEAKER) (test code = 10.1 g/dL 13.0-16.8 L 410) HEMATOCRIT (BEAKER) (test code = 30.0 % 40.0-50.0 L 411) POCT-GLUCOSE [id number] 18:52:00 Test Item Value Reference Range Interpretation Comments POC-GLUCOSE METER 166 mg/dL 70-110 H TESTED AT [facility] 6720 (BEAKER) (test code = [facility] [facility] 1538) [address] POCT-GLUCOSE [id number] 18:05:00 Test Item Value Reference Range Interpretation Comments POC-GLUCOSE METER 168 mg/dL 70-110 H TESTED AT [facility] 6720 (BEAKER) (test code = [facility] 1538) [address] [id number] 16:55:00 Test Item Value Reference Range Interpretation Comments MAGNESIUM (BEAKER) 3.1 mg/dL 1.6-2.6 H Specimen slightly (test code = 627) hemolyzed [id number] 16:55:00 Test Item Value Reference Range Interpretation Comments PHOSPHORUS (BEAKER) 4.4 mg/dL 2.3-4.7 Specimen slightly (test code = 604) hemolyzed BASIC METABOLIC [id number] 16:55:00 Test Item Value Reference Range Interpretation [...] 697) EGFR (BEAKER) (test 64 mL/min/1.73 ESTIMA SUSIE GFR IS code = 1092) sq m NOT ACCURATE CREATININE CLEARANCE IN PREDICTING GLOMERULAR FILTRATION RATE . ESTIMATED GFR I S NOT APPLICABLE FOR DIALYSIS PATIEN TS. LACTIC ACID, ARTERIAL, WHOLE [id number] 16:53:00 Test Item Value Reference Range Interpretation Comments LACTATE BLOOD 4.8 mmol/L 0.5-2.2 H Specimen sligh tly ARTERIAL (2) (BEAKER) hemoly zed (test code = 2874) Effective 10/08/2015: Units/Reference Range ChangeNew: 0.5-2.2 mmol/L Previous: 5-20 mg/dLPROTHROMBIN [id number] 16:44:00 Test Item Value Reference Range Interpretation [...] = 2801) RAD, CHEST, 1 VIEW, NON [id number] 14:55:00Reason for exam:->immediate post cardiothoracic surgery/intubationShould this [...] are well aerated. No pneumothorax is evident.Signed: Eun Servin MDReport Verified Date/Time: 10/11/2017 14:55:01 Reading Location: [facility] B1 [id number] Consult Reading Room OXYGEN SATURATION, [id number] 14:46:00 Test Item Value Reference Range Interpretation Comments O2 SATURATION (MEASURED) (BEAKER) 85.1 % (test code = 1455) CALCIUM, [id number] 14:45:00 Test Item Value Reference Range Interpretation Comments CALCIUM IONIZED (BEAKER) (test 1.23 mmol/L 1.12-1.27 code = 698) PH, BLOOD (BEAKER) (test code = 7.27 1810) POTASSIUM-STAT [id number] 14:44:00 Test Item Value Reference Range Interpretation Comments POTASSIUM (BEAKER) (test code = 4.7 meq/L 3.6-5.5 379) BLOOD GAS, [id number] 14:44:00 Test Item Value Reference Range Interpretation [...] code = 1819) 60.0 % SODIUM NA-STAT [id number] 14:44:00 Test Item Value Reference Range Interpretation Comments SODIUM (BEAKER) (test code = 381) 142 meq/L 135-148 GLUCOSE-STAT [id number] 14:44:00 Test Item Value Reference Range Interpretation Comments GLUCOSE RANDOM (BEAKER) (test code 159 mg/dL 70-110 H = 652) HGB/HCT (H&H) - STAT [id number] 14:44:00 Test Item Value Reference Range Interpretation [...] minutes 4.0-7.0 H (BEAKER) (test code = 1411) [facility] FIBRINOGEN ACTIVITY (BEAKER) 64.6 degrees 61.0-73.0 (test code = 1412) T[facility] PLT. AGGREGATION (BEAKER) 47.5 MM 55.0-65.0 L (test code = 1413) TGH FIBRINOLYSIS (BEAKER) (test 0.0 % 0.0-5.0 code = 1414) [id number] 13:28:00 Test Item Value Reference Range Interpretation Comments ACTIVATED CLOTTING TIME 103 sec TEST ED AT [place] [address] ([facility]) (test code = [place] [address]) [address] [id number] 13:28:00 Test Item Value Reference Range Interpretation Comments ACTIVATED CLOTTING TIME 516 sec TEST ED AT [place] [address] ([facility]) (test code = [place] [address]) [address] [id number] 13:28:00 Test Item Value Reference Range Interpretation Comments ACTIVATED CLOTTING TIME 351 sec TEST ED AT [place] [address] ([facility]) (test code = [place] [address]) [address] [id number] 13:28:00 Test Item Value Reference Range Interpretation Comments ACTIVATED CLOTTING TIME 499 sec TEST ED AT [place] [address] ([facility]) (test code = [place] [address]) [address] [id number] 13:28:00 Test Item Value Reference Range Interpretation Comments ACTIVATED CLOTTING TIME 626 sec TEST ED AT [place] [address] ([facility]) (test code = [place] [address]) [address] [id number] 13:28:00 Test Item Value Reference Range Interpretation Comments ACTIVATED CLOTTING TIME 417 sec TEST ED AT [place] [address] ([facility]) (test code = [place] [address]) [address] [id number] 13:28:00 Test Item Value Reference Range Interpretation Comments ACTIVATED CLOTTING TIME 422 sec TEST ED AT [facility] 6720 ([facility]) (test code = [place] [address]) [address] PROTHROMBIN [id number] 13:13:00 Test Item Value Reference Range Interpretation Comments PROTIME (BEAKER) (test code = 23.1 seconds 11.7-14.7 H 759) INR (BEAKER) (test code = 370) 2.1 <=5.9 RECOMMENDED COUMADIN/WARFARIN INR THERAPY RANGESSTANDARD DOSE: 2.0 - 3.0 Includes: PROPHYLAXIS forvenous thrombosis, systemic embolization; TREATMENT for venous thrombosis and/or pulmonary embolus.HIGH RISK: Target INR is 2.5-3.5 for patients with mechanical heart valves.[id number] 13:13:00 Test Item Value Reference Range Interpretation Comments FIBRINOGEN LEVEL (BEAKER) (test 164 mg/dl 225-434 L code = 658) [id number] 13:13:00 Test Item Value Reference Range Interpretation Comments PARTIAL THROMBOPLASTIN TIME 38.9 seconds 22.5-36.0 H (BEAKER) (test code = 760) PLATELET [id number] 12:56:00 Test Item Value Reference Range Interpretation Comments PLATELET COUNT (BEAKER) (test code 58 K/CU MM 150-450 L = 756) BLOOD GAS, [id number] 12:45:00 Test Item Value Reference Range Interpretation [...] code = 1819) 100.0 % SODIUM NA-STAT [id number] 12:45:00 Test Item Value Reference Range Interpretation Comments SODIUM (BEAKER) (test code = 381) 134 meq/L 135-148 L GLUCOSE-STAT [id number] 12:45:00 Test Item Value Reference Range Interpretation Comments GLUCOSE RANDOM (BEAKER) (test code 235 mg/dL 70-110 H = 652) HGB/HCT (H&H) - STAT [id number] 12:45:00 Test Item Value Reference Range Interpretation Comments HEMOGLOBIN (BEAKER) (test code = 9.4 g/dL 13.0-16.8 L 410) HEMATOCRIT (BEAKER) (test code = 28.0 % 40.0-50.0 L 411) CALCIUM, [id number] 12:45:00 Test Item Value Reference Range Interpretation Comments CALCIUM IONIZED (BEAKER) (test 0.96 mmol/L 1.12-1.27 L code = 698) PH, BLOOD (BEAKER) (test code = 7.35 1810) POTASSIUM-STAT [id number] 12:42:00 Test Item Value Reference Range Interpretation Comments POTASSIUM (BEAKER) (test code = 4.7 meq/L 3.6-5.5 379) BLOOD GAS, [id number] 11:58:00 Test Item Value Reference Range Interpretation [...] (test code = 1819) 70.0 % GLUCOSE-STAT [id number] 11:58:00 Test Item Value Reference Range Interpretation Comments GLUCOSE RANDOM (BEAKER) (test code 223 mg/dL 70-110 H = 652) HGB/HCT (H&H) - STAT [id number] 11:58:00 Test Item Value Reference Range Interpretation Comments HEMOGLOBIN (BEAKER) (test code = 10.0 g/dL 13.0-16.8 L 410) HEMATOCRIT (BEAKER) (test code = 29.0 % 40.0-50.0 L 411) SODIUM NA-STAT [id number] 11:56:00 Test Item Value Reference Range Interpretation Comments SODIUM (BEAKER) (test code = 381) 135 meq/L 135-148 POTASSIUM-STAT [id number] 11:56:00 Test Item Value Reference Range Interpretation Comments POTASSIUM (BEAKER) (test code = 5.4 meq/L 3.6-5.5 379) BLOOD GAS, [id number] 11:33:00 Test Item Value Reference Range Interpretation [...] (test code = 1819) 70.0 % GLUCOSE-STAT [id number] 11:33:00 Test Item Value Reference Range Interpretation Comments GLUCOSE RANDOM (BEAKER) (test code 195 mg/dL 70-110 H = 652) HGB/HCT (H&H) - STAT [id number] 11:33:00 Test Item Value Reference Range Interpretation Comments HEMOGLOBIN (BEAKER) (test code = 7.9 g/dL 13.0-16.8 L 410) HEMATOCRIT (BEAKER) (test code = 23.0 % 40.0-50.0 L 411) SODIUM NA-STAT [id number] 11:32:00 Test Item Value Reference Range Interpretation Comments SODIUM (BEAKER) (test code = 381) 136 meq/L 135-148 POTASSIUM-STAT [id number] 11:32:00 Test Item Value Reference Range Interpretation Comments POTASSIUM (BEAKER) (test code = 4.8 meq/L 3.6-5.5 379) POTASSIUM-STAT [id number] 11:25:00 Test Item Value Reference Range Interpretation Comments POTASSIUM (BEAKER) (test code = 6.7 meq/L 3.6-5.5 HH 379) BLOOD GAS, [id number] 11:24:00 Test Item Value Reference Range Interpretation [...] (test code = 1819) 65.0 % GLUCOSE-STAT [id number] 11:24:00 Test Item Value Reference Range Interpretation Comments GLUCOSE RANDOM (BEAKER) (test code 214 mg/dL 70-110 H = 652) HGB/HCT (H&H) - STAT [id number] 11:24:00 Test Item Value Reference Range Interpretation Comments HEMOGLOBIN (BEAKER) (test code = 11.5 g/dL 13.0-16.8 L 410) HEMATOCRIT (BEAKER) (test code = 34.0 % 40.0-50.0 L 411) SODIUM NA-STAT [id number] 11:24:00 Test Item Value Reference Range Interpretation Comments SODIUM (BEAKER) (test code = 381) 130 meq/L 135-148 L POTASSIUM-STAT [id number] 10:34:00 Test Item Value Reference Range Interpretation Comments POTASSIUM (BEAKER) (test code = 5.5 meq/L 3.6-5.5 379) BLOOD GAS, [id number] 10:34:00 Test Item Value Reference Range Interpretation [...] code = 1819) 65.0 % SODIUM NA-STAT [id number] 10:34:00 Test Item Value Reference Range Interpretation Comments SODIUM (BEAKER) (test code = 381) 133 meq/L 135-148 L GLUCOSE-STAT [id number] 10:34:00 Test Item Value Reference Range Interpretation Comments GLUCOSE RANDOM (BEAKER) (test code 197 mg/dL 70-110 H = 652) HGB/HCT (H&H) - STAT [id number] 10:34:00 Test Item Value Reference Range Interpretation Comments HEMOGLOBIN (BEAKER) (test code = 10.4 g/dL 13.0-16.8 L 410) HEMATOCRIT (BEAKER) (test code = 31.0 % 40.0-50.0 L 411) OXYGEN SATURATION, [id number] 10:13:00 Test Item Value Reference Range Interpretation Comments O2 SATURATION (MEASURED) (BEAKER) 90.1 % (test code = 1455) POTASSIUM-STAT [id number] 10:11:00 Test Item Value Reference Range Interpretation Comments POTASSIUM (BEAKER) (test code = 4.2 meq/L 3.6-5.5 379) BLOOD GAS, [id number] 10:11:00 Test Item Value Reference Range Interpretation [...] code = 1819) 70.0 % SODIUM NA-STAT [id number] 10:11:00 Test Item Value Reference Range Interpretation Comments SODIUM (BEAKER) (test code = 381) 129 meq/L 135-148 L GLUCOSE-STAT [id number] 10:11:00 Test Item Value Reference Range Interpretation Comments GLUCOSE RANDOM (BEAKER) (test code 180 mg/dL 70-110 H = 652) HGB/HCT (H&H) - STAT [id number] 10:11:00 Test Item Value Reference Range Interpretation Comments HEMOGLOBIN (BEAKER) (test code = 9.9 g/dL 13.0-16.8 L 410) HEMATOCRIT (BEAKER) (test code = 29.0 % 40.0-50.0 L 411) POTASSIUM-STAT [id number] 10:08:00 Test Item Value Reference Range Interpretation Comments POTASSIUM (BEAKER) (test code = 4.5 meq/L 3.6-5.5 379) BLOOD GAS, [id number] 10:08:00 Test Item Value Reference Range Interpretation [...] code = 1819) 100.0 % SODIUM NA-STAT [id number] 10:08:00 Test Item Value Reference Range Interpretation Comments SODIUM (BEAKER) (test code = 381) 134 meq/L 135-148 L GLUCOSE-STAT [id number] 10:08:00 Test Item Value Reference Range Interpretation Comments GLUCOSE RANDOM (BEAKER) (test code 149 mg/dL 70-110 H = 652) HGB/HCT (H&H) - STAT [id number] 10:08:00 Test Item Value Reference Range Interpretation Comments HEMOGLOBIN (BEAKER) (test code = 12.6 g/dL 13.0-16.8 L 410) HEMATOCRIT (BEAKER) (test code = 37.0 % 40.0-50.0 L 411) PLATELET AGGREGATION: FUNCTION [id number] 09:29:00 Test Item Value Reference Range Interpretation Comments WEAK ADP 67 % 60-91 RESULT(BEAKER) (test code = 2135) PLATELET FUNCTION 60-100% indicates SCREEN INTERP (BEAKER) normal platelet (test code = 2173) function [id number] Mai Hdz MD (BEAKER) (test code = (electronic signature) 7958) PLATELET COUNT AGG 138 K/CU MM 150-450 L (BEAKER) (test code = 2656) PROTHROMBIN [id number] 08:20:00 Test Item Value Reference Range Interpretation Comments PROTIME (BEAKER) (test code = 14.4 seconds 11.7-14.7 759) INR (BEAKER) (test code = 370) 1.1 <=5.9 RECOMMENDED COUMADIN/WARFARIN INR THERAPY RANGESSTANDARD DOSE: 2.0 - 3.0 Includes: PROPHYLAXIS forvenous thrombosis, systemic embolization; TREATMENT for venous thrombosis and/or pulmonary embolus.HIGH RISK: Target INR is 2.5-3.5 for patients with mechanical heart valves.HEMOGLOBIN [id number] 12:58:00 Test Item Value Reference Range Interpretation Comments HEMOGLOBIN A1C (BEAKER) (test code = 5.4 % 4.3-6.1 368) RAD, CHEST, 2 [id number] 11:52:00Reason for Exam:->Pre-OpFINAL REPORT Chest two views [...] thoracic vertebral compression deformity are noted. Signed: Ambrocio Sorto MDReport Verified Date/Time: 09/28/2017 11:52:35 Reading Location: [facility] Radiology Reading Room BUN 2017-09-28 10:30:00 Test Item Value Reference Range Interpretation Comments BLOOD UREA NITROGEN (BEAKER) (test 20 mg/dL 12-24 code = 354) [id number] 10:30:00 Test Item Value Reference Range Interpretation Comments CREATININE (BEAKER) 1.05 mg/dL 0.57-1.25 (test code = 358) EGFR (BEAKER) (test 71 mL/min/1.73 ESTIMA SUSIE GFR IS code = 1092) sq m NOT ACCURATE CREATININE CLEARANCE IN PREDICTING GLOMERULAR FILTRATION RATE . ESTIMATED GFR I S NOT APPLICABLE FOR DIALYSIS PATIEN TS. PROTHROMBIN [id number] 10:26:00 Test Item Value Reference Range Interpretation [...] PERCENT (BEAKER) (test code = 2801) PROTHROMBIN [id number] 10:29:00 Test Item Value Reference Range Interpretation [...]
[2020-11-13 15:00] LABS: Absolute Lymphocytes (CBC) 1.4 K/uL (0.7-4.9); Basophils % 1.1 % (0-1.3); Hematocrit 34.8 % (39.6-49.0); MPV 8.3 fL (7.6-11.3); RBC Red Blood Cell Count 4.32 M/uL (4.33-5.43)
[2020-11-13] MEDS ORDERED: METOPROLOL TARTRATE 5 MG/5 ML INJ IV ONE ×4 (15:03→19:31)
[2020-11-13 15:15] LABS: Protime INR 1.39
[2020-11-13] MEDS ORDERED: NA CHLORIDE 0.9% 500 ML ONE ×2 (15:28→19:19)
[2020-11-13 15:33] LABS: Albumin 3.6 g/dL (3.4-5.0); Bilirubin Direct 0.1 mg/dL (0-0.2); Bilirubin Total 0.5 mg/dL (0.2-1.0); Magnesium 2.1 mg/dL (1.8-2.4); Potassium 3.6 mmol/L (3.5-5.1); Protein, Total 7.7 g/dL (6.4-8.2); Troponin (Emerg Dept Use Only) 0.09 ng/mL (0.0-0.045)
[2020-11-13 15:43] LABS: Thyroid Stimulating Hormone 5.01 uIU/mL (0.360-3.740)
[2020-11-13] MEDS ORDERED: AMIODARONE HCL 150 MG in D5W 100 ML IV STA (15:51)
[2020-11-13] MEDS ORDERED: AMIODARONE HCL 900 MG in Dextrose 5%-Water 482 ML IV ONE (16:00)
--- NOTE | 2020-11-13 16:12 | EDPHYS ---
Physician Documentation [facility] Name: Alexsander Wylie Age: 70 yrs Sex: Male : 1950 Arrival Date: 11/13/2020 Time: 14:15 Bed 5 Private MD: ED Physician Jonathan Jackson HPI: 11/13 15:57 This 70 yrs old Male presents to ER via Wheelchair with complaints of jr8 Palpitations, Abnormal EKG. 15:57 The patient presents with a history of irregular heart beat. Context: The symptoms jr8 occur at rest. Onset: The symptoms/episode began/occurred acutely, this morning, today. Duration: The patient or guardian reports a single episode, that is still ongoing. Modifying factors: The symptoms are aggravated by nothing. The symptoms are alleviated by nothing. Associated signs and symptoms: The patient has no apparent associated signs or symptoms. Severity of symptoms: At their worst the symptoms were mild in the emergency department the symptoms are unchanged. It is unknown whether or not the patient has had similar symptoms in the past. The patient has not recently seen a physician. Historical: - Allergies: 14:29 Sulfa (Sulfonamide Antibiotics); iw - Home Meds: 14:29 aspirin 81 mg Oral TbEC 1 tab once daily [Active]; iw 14:36 bumetanide 1 mg Oral tab 1 tab 2 times per day [Active]; spironolactone 25 mg Oral tab iw 1 tab once daily [Active]; metoprolol tartrate 25 mg oral tab once daily [Active]; multivitamin oral tab daily [Active]; Vitamin D Oral daily [Active]; biotin 5000 mg oral tab daily [Active]; doxepin 50 mg Oral cap 1 cap once daily [Active]; Xarelto 15 mg oral tab daily [Active]; atorvastatin 40 mg oral tab 1 tab once daily [Active]; ropinirole 4 mg oral tab 1 tab 3 times per day [Active]; - PMHx: 14:29 Hyperlipidemia; Hypertension; stroke; Pacemaker; iw - PSHx: 14:29 mitral valve replacement; Appendectomy; iw - Immunization history:: Client reports receiving the 2nd dose of the Covid vaccine. - Social history:: Smoking status: Patient/guardian denies using tobacco, the patient reports quitting approximately 5 years ago. ROS: 16:04 Eyes: Negative for injury, pain, redness, and discharge, ENT: Negative for injury, jr8 pain, and discharge, Neck: Negative for injury, pain, and swelling, Respiratory: Negative for shortness of breath, cough, wheezing, and pleuritic chest pain, Abdomen/GI: Negative for abdominal pain, nausea, vomiting, diarrhea, and constipation, Back: Negative for injury and pain, MS/Extremity: Negative for injury and deformity, Skin: Negative for injury, rash, and discoloration, Neuro: Negative for headache, weakness, numbness, tingling, and seizure. 16:04 Cardiovascular: Positive for palpitations. Exam: 16:04 Constitutional: This is a well developed, well nourished patient who is awake, alert, jr8 and in no acute distress. Neck: Trachea midline, no thyromegaly or masses palpated, and no cervical lymphadenopathy. Supple, full range of motion without nuchal rigidity, or vertebral point tenderness. No Meningismus. Respiratory: Lungs have equal breath sounds bilaterally, clear to auscultation and percussion. No rales, rhonchi or wheezes noted. No increased work of breathing, no retractions or nasal flaring. Abdomen/GI: Soft, non-tender, with normal bowel sounds. No distension or tympany. No guarding or rebound. No evidence of tenderness throughout. Skin: Warm, dry with normal turgor. Normal color with no rashes, no lesions, and no evidence of cellulitis. MS/ Extremity: Pulses equal, no cyanosis. Neurovascular intact. Full, normal range of motion. Neuro: Awake and alert, GCS 15, oriented to person, place, time, and situation. Motor strength 5/5 in all extremities. Sensory grossly intact. 16:04 Cardiovascular: Rate: tachycardic, Rhythm: irregular, Pulses: Pulses are 2+ in right radial artery and left radial artery. Heart sounds: normal, normal S1and S2, Edema: is not appreciated, JVD: is not appreciated. Vital Signs: 14:27 BP 106 / 79; Pulse 155; Resp 19; Pulse Ox 97% on R/A; ld1 14:29 BP 115 / 84; Pulse 156; Resp 18; Temp 97.5; Weight 92.99 kg; Height 6 ft. 0 in. (182.88 iw cm); Pain 0/10; 14:30 BP 115 / 84; Pulse 156; Resp 19; Pulse Ox 97% on R/A; ld1 14:52 BP 111 / 85; Pulse 153; Resp 20; Pulse Ox 96% on R/A; ld1 15:00 BP 113 / 86; Pulse 152; Resp 19; Pulse Ox 96% on R/A; ld1 15:03 BP 113 / 86; Pulse 152; Resp 19; Pulse Ox 96% on R/A; Pain 0/10; ld1 15:50 BP 103 / 82; Pulse 154; Resp 19; Pulse Ox 96% on R/A; ld1 16:10 BP 123 / 83; Pulse 153; Resp 23; Pulse Ox 97% on R/A; Pain 0/10; ld1 17:05 BP 118 / 88; Pulse 151; Resp 21; Pulse Ox 97% ; sv 17:30 BP 109 / 74; Pulse 152; Resp 23; Pulse Ox 96% ; ld1 18:23 BP 109 / 81; Pulse 147; Resp 23; Pulse Ox 96% on R/A; Pain 0/10; ld1 19:16 BP 118 / 100; Pulse 141; Resp 20; Temp 98; Pulse Ox 98% ; rr5 14:29 Body Mass Index 27.80 (92.99 kg, 182.88 cm) iw MDM: 14:21 Patient medically screened. jr8 15:42 Data reviewed: vital signs, nurses notes, lab test result(s), EKG, radiologic studies, jr8 plain films. Data interpreted: Pulse oximetry: on room air is 96 %. Interpretation: normal. Counseling: I had a detailed discussion with the patient and/or guardian regarding: the historical points, exam findings, and any diagnostic results supporting the discharge/admit diagnosis, lab results, radiology results, the need for further work-up and treatment in the hospital. ED course: Spoke with Dr. Galdamez about patient and that x3 rounds of metoprolol did not work. Recommended amiodarone at this time with patients past history . 11/13 14:36 Order name: Basic Metabolic Panel; Complete Time: 15:56 8 11/13 14:36 Order name: CBC with Diff; Complete Time: 15:19 8 11/13 14:36 Order name: LFT's; Complete Time: 15:56 8 11/13 14:36 Order name: Magnesium; Complete Time: 15:56 11/13 14:36 Order name: NT PRO-BNP; Complete Time: 15:56 11/13 14:36 Order name: PT-INR; Complete Time: 15:19 11/13 14:36 Order name: Troponin (emerg Dept Use Only); Complete Time: 15:56 11/13 14:36 Order name: TSH; Complete Time: 15:56 [facility] 11/13 14:36 Order name: T4 Free; Complete Time: 15:56 [facility] 11/13 17:45 Order name: SARS-COV-2 RT PCR; Complete Time: 17:59 [facility] 11/14 02:47 Order name: Creatine Phosphokinase ED[facility] 11/14 02:47 Order name: CKMB Creatine Kinase MB EDLA 11/13 14:36 Order name: XRAY Chest (1 view); Complete Time: 17:12 [facility] 11/13 14:36 Order name: EKG; Complete Time: 14:37 [facility] 11/13 14:36 Order name: Cardiac monitoring; Complete Time: 15:02 11/13 14:36 Order name: EKG - Nurse/Tech; Complete Time: 15:02 11/13 14:36 Order name: IV Saline Lock; Complete Time: 15:02 11/14 02:47 Order name: Troponin I EDLA 11/14 03:13 Order name: Basic Metabolic Panel ED[facility] 11/14 03:13 Order name: Lipid Profile [facility] 11/14 03:13 Order name: Magnesium ED[facility] 11/14 03:13 Order name: CBC with Automated Diff EDLA 11/13 14:36 Order name: Labs collected and sent; Complete Time: 15:02 11/13 14:36 Order name: O2 Per Protocol; Complete Time: 15:02 [facility] 11/13 14:36 Order name: O2 Sat Monitoring; Complete Time: 15:02 Administered Medications: 13:00 Drug: Metoprolol 5 mg Route: IVP; Site: right antecubital; ld1 14:50 Drug: Metoprolol 5 mg Route: IVP; Site: right antecubital; ld1 16:25 Follow up: Response: No adverse reaction ld1 15:10 Drug: NS 0.9% 500 ml Route: IV; Rate: bolus; Site: right antecubital; ld1 19:00 Follow up: infusion completed prior to recieving report ss 21:00 Follow up: IV Intake: 500ml ss 16:09 Drug: amiodarone 150 mg Volume: 100 ml; Route: IVPB; Infused Over: 10 mins; Site: right ld1 antecubital; 16:24 Follow up: Response: No adverse reaction; IV Status: Completed infusion ld1 16:24 Drug: amiodarone 900 mg, D5W 500 ml Route: IVPB; Rate: 1 mg/min; Site: right ld1 antecubital; 20:59 Follow up: IV Status: Infusion continued upon admission ss 17:10 Drug: Metoprolol 5 mg Route: IVP; Site: right antecubital; sv 17:59 Follow up: Response: No adverse reaction ld1 19:16 Drug: Metoprolol 5 mg Route: IVP; Site: right antecubital; rr5 20:59 Follow up: Response: No adverse reaction; No change in condition ss Disposition: 11/13/20 16:11 Hospitalization ordered by Juan David Leung for Inpatient Admission. Preliminary diagnosis is Atrial fibrillation and flutter - with RVR. - Bed requested for Intensive Care Unit. - Status is Inpatient Admission. eb - Condition is Stable. - Problem is new. - Symptoms are unchanged. Addendum: 11/17/2020 07:10 Co-signature as Attending Physician, Jonathan Jackson MD I agree with the assessment and k dr plan of care. Signatures: Dispatcher [employer] [facility] Leora Betts RN RN sv Rittger, Kevin, MD MD [facility] [employer] RN RN Amando Mckeon PA PA jr8 Teresita Martinez Raymond, RN RN rr5 Yudy Marte RN RN rd1 Enriqueta Oropeza RN RN ld1 Tia Gibson RN ss Corrections: (The following items were deleted from the chart) 11/13 16:12 16:04 CORONAVIRUS+MR.LAB.BRZ ordered. EDMS EDMS 16:43 16:04 CORONAVIRUS+MR.LAB.BRZ ordered. EDLA EDMS 19:07 16:11 Hospitalization Ordered by Juan David Leung DO for Inpatient Admission. Preliminary rd1 diagnosis is Atrial fibrillation and flutter - with RVR. Bed requested for Intensive Care Unit. Status is Inpatient Admission. Condition is Stable. Problem is new. Symptoms are unchanged. jr8 11/14 10:17 11/13 19:07 11/13/2020 16:11 Hospitalization Ordered by Juan David Leung DO for Inpatient ld1 Admission. Preliminary diagnosis is Atrial fibrillation and flutter - with RVR. Bed requested for [facility] ER HOLD. Status is Inpatient Admission. Condition is Stable. Problem is new. Symptoms are unchanged. rd1 11/14 10:29 10:17 11/13/2020 16:11 Hospitalization Ordered by Juan David Leung DO for Inpatient eb Admission. Preliminary diagnosis is Atrial fibrillation and flutter - with RVR. Bed requested for Intensive Care Unit. Status is Inpatient Admission. Condition is Stable. Problem is new. Symptoms are unchanged. ld1
--- NOTE | 2020-11-13 16:12 | ER ---
Nurse's Notes [facility] Name: Alexsander Wylie Age: 70 yrs Sex: Male : 1950 Arrival Date: 11/13/2020 Time: 14:15 Bed 5 Private MD: Diagnosis: Atrial fibrillation and flutter-with RVR Presentation: 11/13 14:29 Chief complaint: Patient states: was sent from cardiac rehab for fast HR, pt was iw Aflutter at 155 bpm . no hx of A flutter, pt states he missed his dose of metoprolol this morning, had recent mitral valve replacement in August. Coronavirus screen: At this time, the client does not indicate any symptoms associated with coronavirus-19. Ebola Screen: Patient negative for fever greater than or equal to 101.5 degrees Fahrenheit, and additional compatible Ebola Virus Disease symptoms Patient denies exposure to infectious person. Patient denies travel to an Ebola-affected area in the 21 days before illness onset. No symptoms or risks identified at this time. Initial Sepsis Screen: Does the patient meet any 2 criteria? No. Patient's initial sepsis screen is negative. Does the patient have a suspected source of infection? No. Patient's initial sepsis screen is negative. Risk Assessment: Do you want to hurt yourself or someone else? Patient reports no desire to harm self or others. Onset of symptoms was November 13, 2020. 14:29 Method Of Arrival: Wheelchair iw 14:29 Acuity: [place] 2 iw Historical: - Allergies: 14:29 Sulfa (Sulfonamide Antibiotics); iw - Home Meds: 14:29 aspirin 81 mg Oral TbEC 1 tab once daily [Active]; iw 14:36 bumetanide 1 mg Oral tab 1 tab 2 times per day [Active]; spironolactone 25 mg Oral tab iw 1 tab once daily [Active]; metoprolol tartrate 25 mg oral tab once daily [Active]; multivitamin oral tab daily [Active]; Vitamin D Oral daily [Active]; biotin 5000 mg oral tab daily [Active]; doxepin 50 mg Oral cap 1 cap once daily [Active]; Xarelto 15 mg oral tab daily [Active]; atorvastatin 40 mg oral tab 1 tab once daily [Active]; ropinirole 4 mg oral tab 1 tab 3 times per day [Active]; - PMHx: 14:29 Hyperlipidemia; Hypertension; stroke; Pacemaker; iw - PSHx: 14:29 mitral valve replacement; Appendectomy; iw - Immunization history:: Client reports receiving the 2nd dose of the Covid vaccine. - Social history:: Smoking status: Patient/guardian denies using tobacco, the patient reports quitting approximately 5 years ago. Screenin:03 Abuse screen: Denies threats or abuse. Denies injuries from another. Nutritional ld1 screening: No deficits noted. Tuberculosis screening: No symptoms or risk factors identified. Fall Risk None identified. Assessment: 15:03 General: Appears in no apparent distress. comfortable, Behavior is calm, cooperative, ld1 appropriate for age. Pain: Denies pain. Neuro: Level of Consciousness is awake, alert, obeys commands, Oriented to person, place, time, situation, Appropriate for age. Cardiovascular: Reports palpitations, shortness of breath, Denies chest pain, Capillary refill < 3 seconds Patient's skin is warm and dry. Rhythm is sinus tachycardia Wide complex with occasional PVC's. Respiratory: Airway is patent Respiratory effort is even, unlabored, Respiratory pattern is regular, symmetrical. GI: Abdomen is round distended. : No signs and/or symptoms were reported regarding the genitourinary system. EENT: No signs and/or symptoms were reported regarding the EENT system. Derm: No signs and/or symptoms reported regarding the dermatologic system. Musculoskeletal: No signs and/or symptoms reported regarding the musculoskeletal system. 16:10 Reassessment: Patient appears in no apparent distress at this time. Patient is alert, ld1 oriented x 3, equal unlabored respirations, skin warm/dry/pink. Eating in bed, denies concerns at this time. 17:00 Reassessment: Patient appears in no apparent distress at this time. No changes from ld1 previously documented assessment. talking with at bedside. 18:20 Reassessment: Patient appears in no apparent distress at this time. No changes from ld1 previously documented assessment. Patient and/or family updated on plan of care and expected duration. Pain level reassessed. Patient is alert, oriented x 3, equal unlabored respirations, skin warm/dry/pink. Sitting up in bed talking on phone. Denies concerns at this time. Patient denies pain at this time. 19:30 General: Appears in no apparent distress. comfortable, Behavior is calm, cooperative, rr5 appropriate for age. Neuro: Level of Consciousness is awake, alert, obeys commands, Oriented to person, place, time. Cardiovascular: Capillary refill < 3 seconds Patient's skin is warm and dry. Rhythm is sinus tachycardia. 19:30 Reassessment: Patient states feeling better. Patient states symptoms have improved. rr5 Derm: Skin is intact, is healthy with good turgor, Skin temperature is warm. Musculoskeletal: No signs and/or symptoms reported regarding the musculoskeletal system. Vital Signs: 14:27 BP 106 / 79; Pulse 155; Resp 19; Pulse Ox 97% on R/A; ld1 14:29 BP 115 / 84; Pulse 156; Resp 18; Temp 97.5; Weight 92.99 kg; Height 6 ft. 0 in. (182.88 iw cm); Pain 0/10; 14:30 BP 115 / 84; Pulse 156; Resp 19; Pulse Ox 97% on R/A; ld1 14:52 BP 111 / 85; Pulse 153; Resp 20; Pulse Ox 96% on R/A; ld1 15:00 BP 113 / 86; Pulse 152; Resp 19; Pulse Ox 96% on R/A; ld1 15:03 BP 113 / 86; Pulse 152; Resp 19; Pulse Ox 96% on R/A; Pain 0/10; ld1 15:50 BP 103 / 82; Pulse 154; Resp 19; Pulse Ox 96% on R/A; ld1 16:10 BP 123 / 83; Pulse 153; Resp 23; Pulse Ox 97% on R/A; Pain 0/10; ld1 17:05 BP 118 / 88; Pulse 151; Resp 21; Pulse Ox 97% ; sv 17:30 BP 109 / 74; Pulse 152; Resp 23; Pulse Ox 96% ; ld1 18:23 BP 109 / 81; Pulse 147; Resp 23; Pulse Ox 96% on R/A; Pain 0/10; ld1 19:16 BP 118 / 100; Pulse 141; Resp 20; Temp 98; Pulse Ox 98% ; rr5 14:29 Body Mass Index 27.80 (92.99 kg, 182.88 cm) iw ED Course: 14:15 Patient arrived in ED. ds1 14:20 Enriqueta Oropeza RN is Primary Nurse. ld1 14:21 [facility] jr8 14:21 Jonathan Jackson MD is Attending Physician. jr8 14:31 Triage completed. iw 14:31 Arm band placed on. iw 15:03 Patient has correct armband on for positive identification. Placed in gown. Bed in low ld1 position. Call light in reach. Side rails up X2. combatant swimmer on. Pulse ox on. NIBP on. Notified ED physician of vital signs. 15:03 Inserted saline lock: 20 gauge in right antecubital area, using aseptic technique. ld1 Blood collected. 15:19 XRAY Chest (1 view) In Process Unspecified. EDMS 16:11 Juan David Leung DO is Hospitalizing Provider. jr8 20:58 No provider procedures requiring assistance completed. Patient admitted, IV remains in ss place. Administered Medications: 13:00 Drug: Metoprolol 5 mg Route: IVP; Site: right antecubital; ld1 14:50 Drug: Metoprolol 5 mg Route: IVP; Site: right antecubital; ld1 16:25 Follow up: Response: No adverse reaction ld1 15:10 Drug: NS 0.9% 500 ml Route: IV; Rate: bolus; Site: right antecubital; ld1 19:00 Follow up: infusion completed prior to recieving report ss 21:00 Follow up: IV Intake: 500ml ss 16:09 Drug: amiodarone 150 mg Volume: 100 ml; Route: IVPB; Infused Over: 10 mins; Site: right ld1 antecubital; 16:24 Follow up: Response: No adverse reaction; IV Status: Completed infusion ld1 16:24 Drug: amiodarone 900 mg, D5W 500 ml Route: IVPB; Rate: 1 mg/min; Site: right ld1 antecubital; 20:59 Follow up: IV Status: Infusion continued upon admission ss 17:10 Drug: Metoprolol 5 mg Route: IVP; Site: right antecubital; sv 17:59 Follow up: Response: No adverse reaction ld1 19:16 Drug: Metoprolol 5 mg Route: IVP; Site: right antecubital; rr5 20:59 Follow up: Response: No adverse reaction; No change in condition ss Intake: 21:00 IV: 500ml; Total: 500ml. ss Outcome: 16:11 Decision to Hospitalize by Provider. jr8 20:58 Admitted to ER Hold. Please see [facility] for further documentation. 20:58 Condition: stable 20:58 Instructed on the need for admit. 11/14 10:29 Patient left the ED. eb Signatures: Dispatcher [employer] EDLeora Moraes RN RN Usha Briscoe ds1 [employer] RN RN iw Tia Gibson RN RN Amando Mckeon PA PA jr8 Teresita Martinez Raymond, RN RN rr5 Enriqueta Oropeza RN RN ld1 Corrections: (The following items were deleted from the chart) 11/13 14:36 14:29 Pulse 156bpm; Resp 18bpm; Temp 97.5F; 92.99 kg; Height 6 ft. 0 in.; BMI: 27.8; iw Pain 0/10; iw
--- NOTE | 2020-11-13 16:27 | RAD REPORT ---
EXAM DESCRIPTION: Liz Single View11/13/2020 3:20 pm CLINICAL HISTORY: Shortness of breath COMPARISON: October 2020 FINDINGS: [id number] bilateral pulmonary opacities Heart is moderately enlarged. Pacemaker leads in place. Postsurgical changes involve the chest IMPRESSION: Mild to moderate CHF
--- NOTE | 2020-11-13 16:52 | P.HP ---
Certification for Inpatient Patient admitted to: Inpatient With expected LOS: >2 Midnights Patient will require the following post-hospital care: None Practitioner: I am a practitioner with admitting privileges, knowledge of patient current condition, hospital course, and medical plan of care. Services: Services provided to patient in accordance with Admission requirements found in Title 42 Section 412.3 of the Code of Federal Regulations Patient History Date of Service: 11/13/20 Primary Care Provider: Dr. Lee; Cardiology-Dr. Garrett Reason for admission: Palpitations History of Present Illness: 70-year-old male with history of atrial fibrillation on chronic anticoagulation therapy, pacemaker, CHF, hypertension, hyperlipidemia, and restless leg syndrome. Patient presented to the emergency room after the patient was seen by cardiac rehab. There at cardiac rehab patient was noted to have some palpitations. Patient had abnormal finding on EKG. The patient was sent for further evaluation. Patient had reported some palpitation. Patient denied any significant chest pain, shortness of breath, nausea or vomiting. In the ER patient was evaluated. Patient had accelerated rate in the 150s. Wide QRS noted likely underlying A. fib a flutter. Patient was given multiple rounds of metoprolol without any significant change. At that point cardiology was consulted. Cardiology recommended admission for IV amiodarone. Patient will be admitted at this time. Patient stable with no respiratory distress. Lab reviewed. CBC stable. BMP shows sodium of 139, potassium 3.6. BUN of 1.28 with a GFR 56. Troponin 0 0.09 with a BNP of 993. TSH 5.1. Free T4 1.04. Chest x-ray showed mild CHF. Allergies sulfamethoxazole [From Bactrim] Allergy (Verified 08/10/20 02:25) Hives trimethoprim [From Bactrim] Allergy (Verified 08/10/20 02:25) Hives Home medications list reviewed: Yes Home Medications: Ropinirole HCl 12 mg PO BEDTIME 01/06/16 Metoprolol Tartrate [Lopressor*] 100 mg PO BID #120 tab 07/06/17 Albuterol Sulfate [Proair Respiclick] 2 puff IH Q4HP PRN 07/18/20 Budesonide/Formoterol Fumarate [Symbicort 160-4.5 Mcg Inhaler] 2 puff IH Q12H 07/18/20 Furosemide [Lasix*] 80 mg PO BID 07/18/20 Multivitamin [Multiple Vitamins] 1 tab PO DAILY 07/18/20 Potassium Chloride 10 meq PO BID 07/18/20 Rivaroxaban [Xarelto*] 20 mg PO BEDTIME 07/18/20 traMADol HCL [Ultram*] 50 mg PO BIDP PRN 07/18/20 Cyanocobalamin (Vitamin B-12) [Vitamin B12] 5,000 mcg SL DAILY #30 tab.rapdis 07/19/20 Minocycline HCl 100 mg PO Q12H #20 capsule 07/19/20 Atorvastatin Calcium [Lipitor*] 20 mg PO DAILY 08/10/20 Arformoterol Tartrate [Brovana] 15 mcg NEB BIDRESP vial.neb 08/16/20 Ascorbic Acid [Vitamin C*] 500 mg PO QID tablet 08/16/20 Atorvastatin Calcium [Lipitor*] 20 mg PO DAILY tab 08/16/20 Azithromycin Tab [Zithromax*] 500 mg PO DAILY tab 08/16/20 Benzonatate [Tessalon Perle*] 100 mg PO TID PRN cap 08/16/20 Cefuroxime [Ceftin*] 500 mg PO BID tab 08/16/20 Cholecalciferol (Vitamin D3) [Vitamin D 1000 Iu Tab*] 4,000 unit PO DAILY tab 08/16/20 Cyanocobalamin [Vitamin B-12*] 5,000 mcg SL DAILY tab 08/16/20 Ensure High Protein 237 ml PO BID PRN can 08/16/20 Furosemide [Lasix 40 MG INJ*] 40 mg IV Q12HR vial 08/16/20 Glimepiride [Amaryl*] 2 mg PO BIDWM tab 08/16/20 Ipratropium Neb [Atrovent*] 0.5 mg NEB [id number] PRN amp 08/16/20 Levalbuterol [Xopenex*] 0.63 mg NEB [id number] PRN vial 08/16/20 Metoprolol Tartrate [Lopressor*] 100 mg PO BID tab 08/16/20 Multivit,Ther Iron,Ca,FA & Min [Centrum Tablet*] 1 tab PO DAILY tab 08/16/20 Potassium Oral Tab [Klor-Con 10 mEq Tab*] 10 meq PO BIDWM tab 08/16/20 Ropinirole HCl [Requip*] 12 mg PO BEDTIME tab 08/16/20 Spironolactone [Aldactone*] 25 mg PO DAILY tab 08/16/20 Thiamine HCl [Vitamin B-1*] 200 mg PO DAILY tablet 08/16/20 Zinc Sulfate [Zinc Sulfate*] 220 mg PO DAILY cap 08/16/20 clonazePAM [Klonopin*] 0.5 mg PO TID PRN tab 08/16/20 predniSONE [Prednisone*] 20 mg PO BID tab 08/16/20 traMADol HCL [Ultram*] 100 mg PO BIDP PRN tab 08/16/20 - Past Medical/Surgical History Diabetic: No -: History CVA x4 -: Hyperlipidemia -: Aortic valve replacement -: Atrial fibrillation on chronic anticoagulation therapy -: Chronic diastolic congestive heart failure -: Former tobacco use -: Restless leg syndrome -: Mitral stenosis -: History of pacemaker -: Appendectomy -: Aortic valve replacement x2 secondary to patent ductus -: History of pacemaker -: Former tobacco use Psychosocial/ Personal History: The patient is He has 1 child. He is retired. - Family History Father -: Heart disease, Lung disease, Other (see notes) Notes: COPD; asbestosis - Social History Smoking Status: Former smoker Alcohol use: Yes CD- Drugs: No Caffeine use: Yes Place of Residence: Home Review of Systems General: As per HPI Eyes: Unremarkable ENT: Unremarkable Respiratory: Unremarkable Cardiovascular: Palpitations, As per HPI Gastrointestinal: Unremarkable Genitourinary: Unremarkable Musculoskeletal: Pedal edema, As per HPI Integumentary: Unremarkable Neurological: Unremarkable Lymphatics: Unremarkable Physical Examination - Studies Laboratory Data (last 24 hrs) 11/13/20 14:50: PT 16.0 H, INR 1.39 11/13/20 14:50: WBC 9.00, Hgb 11.3 L, Hct 34.8 L, Plt Count 149 L 11/13/20 14:50: Sodium 139, Potassium 3.6, BUN 18, Creatinine 1.28, Glucose 182 H, Magnesium 2.1 D, Total Bilirubin 0.5, AST 17, ALT 18, Alkaline Phosphatase 107 Assessment and Plan - Plan Physical Exam: GENERAL: The patient is a well-developed, well-nourished, in no apparent distress. Alert and oriented x3. VITAL SIGNS: Reviewed HEENT: Head is normocephalic and atraumatic. Extraocular muscles are intact. Pupils are equal, round, and reactive to light and accommodation. Nares appeared normal. Mouth is well hydrated and without lesions. Mucous membranes are moist. NECK: Supple. No carotid bruits. No lymphadenopathy or thyromegaly. LUNGS: some crackles to the bases HEART: Irregular irregular, Rate about 150 ABDOMEN: Soft, nontender, and nondistended. Positive bowel sounds. No hepatosplenomegaly was noted. EXTREMITIES: Mild pitting edema to the lower ext. NEUROLOGIC: The patient is oriented to person, place and time. Strength and sensation are grossly intact. Face is symmetric. SKIN: Normal color, turgor and temperature. No ulcerations or rashes noted. Impression: Palpitations secondary to atrial fibrillation/flutter with RVR on chronic anticoagulation therapy Chronic diastolic CHF with severe mitral stenosis Hypertension Hyperlipidemia History of pacemaker Restless leg syndrome Plan: Palpitations secondary to atrial fibrillation/flutter with RVR on chronic anticoagulation therapy: Patient admitted to ICU for further evaluation and treatment. ER provider spoke to cardiology. Patient will be started on amiodarone. Continue with amiodarone protocol. Patient on Xarelto, will continue with his medication. We will continue to monitor patient closely. Monitor telemetry. Continue to monitor cardiac enzymes. Anticipate improvement with amiodarone. Patient will also continue with metoprolol as needed. If no improvement patient may require further cardiac intervention. Await recommendations by cardiology. Anticipate improvement over the next 48 to 72 hours. Chronic diastolic CHF with severe mitral stenosis: Continue with Bumex, Aldactone. Continue 1500 cc/day fluid restriction. Hypertension: Continue with metoprolol. Parameters in place. Hyperlipidemia: Continue Lipitor. History of pacemaker: Continue as above Restless leg syndrome: Continue with Requip. Code Status: Full Code DVT prophylaxis: Xarelto Advanced Care Planning-30 minutes: Plan of care for the patient's discharge was discussed in detail with the patient. Patient desires to go home at discharge. Discharge Plan: Home Plan to discharge in: Greater than 2 days - Advance Directives Does patient have a Living Will: No Does patient have a Durable POA for Healthcare: No - Code Status/Comfort Care Code Status Assessed: Yes (Patient is full code) Time Spent Managing Pts Care (In Minutes): 55
[2020-11-13] MEDS ORDERED: NA CHLORIDE 0.9% 1,000 ML ONE (21:53)
[2020-11-13] MEDS ORDERED: RSI MEDICATION KIT IV ONE (21:53)
[2020-11-13] MEDS ORDERED: NITROGLYCERIN/D5W 50 MG/250 ML BTL IV ONE (21:56)
[2020-11-13] MEDS ORDERED: propofoL 1,000 MG/100 ML VIAL IV ONE (21:57)
[2020-11-14 00:37] VITALS: BMI 27.8
[2020-11-14] MEDS ORDERED: ACETAMINOPHEN 500 MG TAB PO PRN (02:02)
[2020-11-14] MEDS ORDERED: ROPINIROLE HCL 1 MG TAB PO SCH ×2 (02:02→21:00)
[2020-11-14 02:47] LABS: CKMB Creatine Kinase MB 2.1 ng/mL (1.0-3.6); Troponin I 0.18 ng/mL (0.0-0.045)
[2020-11-14 03:02] LABS: Absolute Lymphocytes (CBC) 1.3 K/uL (0.7-4.9); Basophils % 0.9 % (0-1.3); Hematocrit 32.9 % (39.6-49.0); Lymphocytes % 13.7 % (15.3-44.8); MPV 8.7 fL (7.6-11.3); RBC Red Blood Cell Count 4.06 M/uL (4.33-5.43)
[2020-11-14] MEDS: RIVAROXABAN 15 MG TABLET PO SCH ×2 (03:02→17:11)
[2020-11-14] MEDS: BUMETANIDE 1 MG/4 ML VIAL IV SCH ×3 (03:02→20:19)
[2020-11-14] MEDS: METOPROLOL TAR 25 MG TAB PO SCH ×3 (03:02→17:11)
[2020-11-14] MEDS: DOXEPIN HCL 25 MG CAP PO SCH ×2 (03:02→20:39)
[2020-11-14] MEDS: ATORVASTATIN 40 MG TAB PO SCH ×2 (03:02→20:20)
[2020-11-14] MEDS ORDERED: METOPROLOL TAR 25 MG TAB ONE (03:08)
[2020-11-14] MEDS ORDERED: ATORVASTATIN 20 MG TAB ONE ×2 (03:08→20:17)
[2020-11-14 03:13] LABS: Potassium 4.1 mmol/L (3.5-5.1)
[2020-11-14] MEDS ORDERED: BUMETANIDE 1 MG/4 ML VIAL ONE (03:16)
--- NOTE | 2020-11-14 06:20 | P.PN ---
Subjective Date of Service: 11/14/20 Primary Care Provider: Dr. Lee; Cardiology-Dr. Garrett Chief Complaint: Palpitations Subjective: Improving, Doing well (Rate significantly improved. Still irregular irregular) Physical Examination - Vital Signs Temperature: 98.4 F Blood Pressure: 115/59 Pulse: 98 Respirations: 22 Pulse Ox (%): 98 - Studies Laboratory Data (last 24 hrs) 11/13/20 14:50: PT 16.0 H, INR 1.39 11/13/20 14:50: WBC 9.00, Hgb 11.3 L, Hct 34.8 L, Plt Count 149 L 11/13/20 14:50: Sodium 139, Potassium 3.6, BUN 18, Creatinine 1.28, Glucose 182 H, Magnesium 2.1 D, Total Bilirubin 0.5, AST 17, ALT 18, Alkaline Phosphatase 107 Assessment & Plan Discharge Plan: Home Plan to discharge in: 72 Hours Physician Review Additional Text: Physical Exam: GENERAL: The patient is a well-developed, well-nourished, in no apparent distress. Alert and oriented x3. VITAL SIGNS: Reviewed HEENT: Head is normocephalic and atraumatic. Extraocular muscles are intact. Pupils are equal, round, and reactive to light and accommodation. Nares appeared normal. Mouth is well hydrated and without lesions. Mucous membranes are moist. NECK: Supple. No carotid bruits. No lymphadenopathy or thyromegaly. LUNGS: Better air movement bilateral. HEART: Irregular irregular with better rate around 90-100 ABDOMEN: Soft, nontender, and nondistended. Positive bowel sounds. No hepatosplenomegaly was noted. EXTREMITIES: Edema to the lower extremities improved NEUROLOGIC: The patient is oriented to person, place and time. Strength and sensation are grossly intact. Face is symmetric. SKIN: Normal color, turgor and temperature. No ulcerations or rashes noted. Impression: Palpitations secondary to atrial fibrillation/flutter with RVR on chronic anticoagulation therapy Chronic diastolic CHF with severe mitral stenosis Hypertension Hyperlipidemia History of pacemaker Restless leg syndrome Plan: Palpitations secondary to atrial fibrillation/flutter with RVR on chronic anticoagulation therapy: Patient remained stable. Heart rate improved to around 90-100 on IV amiodarone. Continue with IV amiodarone. Patient also on Xarelto. Cardiology to evaluate. Await recommendation. Continue with other home medications including metoprolol, Bumex and Aldactone. We will monitor the patient closely. Anticipate continued improvement over the next 48 to 72 hours. Chronic diastolic CHF with severe mitral stenosis: Will adjust Bumex to oral. Continue with Aldactone. Continue 1500 cc/day fluid restriction in place. Will recheck chest x-ray tomorrow. Hypertension: Continue with metoprolol. Parameters in place. Hyperlipidemia: Continue Lipitor. History of pacemaker: Continue as above Restless leg syndrome: Continue with Requip. Code Status: Full Code DVT prophylaxis: Xarelto Advanced Care Planning-30 minutes: Plan of care for the patient's discharge was discussed in detail with the patient. Patient desires to go home at discharge. Time Spent Managing Pts Care (In Minutes): 55
[2020-11-14] MEDS ORDERED: ASPIRIN EC 81 MG TAB PO ONE (08:46)
[2020-11-14] MEDS ORDERED: VITAMIN D 1000 UNIT TAB ONE (08:46)
[2020-11-14] MEDS: VITAMIN D 1000 UNIT TAB PO SCH (09:00)
[2020-11-14] MEDS: ASPIRIN EC 81 MG TAB PO SCH (09:00)
[2020-11-14] MEDS: SPIRONOLACTONE 25 MG TABLET PO SCH (09:00)
[2020-11-14 10:51] LABS: CKMB Creatine Kinase MB 1.2 ng/mL (1.0-3.6); Troponin I 0.16 ng/mL (0.0-0.045)
[2020-11-14] MEDS ORDERED: AMIODARONE HCL 900 MG in Dextrose 5%-Water 482 ML IV SCH (15:00)
[2020-11-14] MEDS ORDERED: METOPROLOL TARTRATE 5 MG/5 ML INJ IV ONE (15:00)
[2020-11-14] MEDS ORDERED: DILTIAZEM HCL 125 MG/25 ML VIAL IVP ONE (16:15)
[2020-11-14] MEDS ORDERED: MIDAZOLAM HCL 2 MG/2 ML INJ IV ONE (16:16)
[2020-11-14] MEDS ORDERED: NA CHLORIDE 0.9% 250 ML IV ONE (16:17)
[2020-11-14] MEDS ORDERED: dilTIAZem HCL 25 MG/5 ML VIAL IV ONE ×2 (16:17→16:45)
[2020-11-14] MEDS ORDERED: NA CHLORIDE 0.9% 250 ML ONE (16:22)
[2020-11-14] MEDS ORDERED: MIDAZOLAM HCL 2 MG/2 ML INJ ONE (16:27)
[2020-11-14] MEDS ORDERED: AMIODARONE HCL 200 MG TAB ONE (20:16)
[2020-11-14] MEDS: AMIODARONE HCL 200 MG TAB PO SCH (20:20)
[2020-11-14] MEDS ORDERED: ATORVASTATIN 40 MG TAB ONE (20:21)
[2020-11-14] MEDS ORDERED: BUMETANIDE 1 MG TABLET PO SCH (21:00)
[2020-11-14] MEDS ORDERED: LORazepam 2 MG/ML VIAL IV ONE (23:50)
[2020-11-15] MEDS ORDERED: LORazepam 2 MG/ML VIAL ONE (00:13)
[2020-11-15] MEDS: TRAMADOL HCL 50 MG TAB PO PRN ×2 (01:00→08:51)
[2020-11-15] MEDS ORDERED: TRAMADOL HCL 50 MG TAB ONE ×2 (01:20→09:11)
[2020-11-15] MEDS: METOPROLOL TAR 25 MG TAB PO SCH ×2 (05:42→06:00)
[2020-11-15 05:59] LABS: Hematocrit 28.6 % (39.6-49.0); MPV 8.5 fL (7.6-11.3); RBC Red Blood Cell Count 3.55 M/uL (4.33-5.43)
--- NOTE | 2020-11-15 06:00 | P.DS ---
Admission Date: 11/13/20 Discharge Date: 11/15/20 Primary Care Provider: Dr. Lee; Cardiology-Dr. Garrett Disposition: ROUTINE DISCHARGE Discharge Condition: GOOD Reason for Admission: Palpitations Consultations: Cardiology-Dr. Galdamez Procedures: COVID: Negative CXR: COMPARISON: October 2020 FINDINGS: [id number] bilateral pulmonary opacities Heart is moderately enlarged. Pacemaker leads in place. Postsurgical changes involve the chest IMPRESSION: Mild to moderate CHF Cardiology intervention: Successful cardioversion. Medical problem list: Palpitations secondary to atrial fibrillation/flutter with RVR on chronic anticoagulation therapy status post cardioversion now sinus rhythm Chronic diastolic CHF with severe mitral stenosis Hypertension Hyperlipidemia History of pacemaker Restless leg syndrome Brief History of Present Illness: 70-year-old male with history of atrial fibrillation on chronic anticoagulation therapy, pacemaker, CHF, hypertension, hyperlipidemia, and restless leg syndrome. Patient presented to the emergency room after the patient was seen by cardiac rehab. There at cardiac rehab patient was noted to have some palpitations. Patient had abnormal finding on EKG. The patient was sent for further evaluation. Patient had reported some palpitation. Patient denied any significant chest pain, shortness of breath, nausea or vomiting. In the ER patient was evaluated. Patient had accelerated rate in the 150s. Wide QRS noted likely underlying A. fib a flutter. Patient was given multiple rounds of metoprolol without any significant change. At that point cardiology was consulted. Cardiology recommended admission for IV amiodarone. Patient will be admitted at this time. Patient stable with no respiratory distress. Lab reviewed. CBC stable. BMP shows sodium of 139, potassium 3.6. BUN of 1.28 with a GFR 56. Troponin 0 0.09 with a BNP of 993. TSH 5.1. Free T4 1.04. Chest x-ray showed mild CHF. Hospital Course: Patient presented with palpitations secondary to atrial fibrillation/flutter with RVR. Patient on chronic anticoagulation therapy. Other medical problems include chronic diastolic CHF with severe mitral stenosis, hypertension, hyperlipidemia, history of pacemaker and restless leg syndrome. The patient was hospitalized. Patient was placed on IV amiodarone drip. Cardiology was consulted. His heart rate initially improve but then returned back into an elevated heart rate. Cardiology recommended cardioversion. Cardioversion was performed successfully with return of sinus rhythm/paced rhythm. Patient was transitioned to oral amiodarone. Patient has done well. At discharge the patient will continue with amiodarone 200 mg 1 pill twice daily, Xarelto 15 mg daily, aspirin and multivitamin daily. Recommend follow-up with cardiology in 1 to 2 weeks to follow-up his hospitalization and continue his care. Patient with chronic diastolic CHF with severe mitral stenosis. Patient receive d IV diuretic therapy during the course of his stay. This was likely slightly compromised due to his atrial fibrillation/atrial flutter. Patient overall improved. At discharge patient will continue with the 1500 cc/day fluid restriction and low-salt diet. Recommend to monitor his weight daily. If his weight increases by more than 5 pounds he is to contact his PCP or cardiology for further recommendation. At discharge patient will continue with Bumex 2 mg 1 pill twice daily and Aldactone 25 mg daily. Recommend follow-up with his property management specialist to further monitor and adjust medication. Patient with hypertension. This has remained stable. At discharge patient may continue with metoprolol 25 mg 1 pill twice daily. May need to hold medication if blood pressure systolic less than 110 or heart rate less than 50. Recommend to maintain blood pressure less than 130/80. Further adjustment can be done by his PCP or cardiology. Patient with hyperlipidemia. At discharge patient will continue with his current medication of Lipitor 40 mg daily. Patient with restless leg syndrome. At discharge patient will continue with his medication of Requip 12 mg at bedtime. Patient also takes doxepin 50 mg at bedtime for insomnia. Vital Signs/Physical Exam: Temp Pulse Resp BP Pulse Ox 97.2 F 78 22 H 129/56 L 98 11/15/20 04:00 11/15/20 05:42 11/15/20 04:00 11/15/20 05:42 11/15/20 04:00 General: Alert, In no apparent distress, Oriented x3, Cooperative HEENT: Atraumatic, Normocephalic Neck: Supple Respiratory: Clear to auscultation bilaterally Cardiovascular: Regular rate/rhythm (Paced rhythm) Gastrointestinal: Normal bowel sounds, No tenderness, No masses, No rebound, No guarding Musculoskeletal: No tenderness, No warmth Integumentary: No tenderness/swelling (1+ pain edema to the lower extremities bilateral) Neurological: Normal speech, Normal strength at 5/5 x4 extr, Normal tone, Normal affect Laboratory Data at Discharge: WBC 9.50 K/uL (4.3-10.9) 11/14/20 02:40 Hgb 10.7 g/dL (13.6-17.9) L 11/14/20 02:40 Hct 32.9 % (39.6-49.0) L 11/14/20 02:40 Plt Count 128 K/uL (152-406) L 11/14/20 02:40 PT 16.0 SECONDS (9.5-12.5) H 11/13/20 14:50 INR 1.39 11/13/20 14:50 Sodium 138 mmol/L (136-145) 11/14/20 02:40 Potassium 4.1 mmol/L (3.5-5.1) 11/14/20 02:40 BUN 20 mg/dL (7-18) H 11/14/20 02:40 Creatinine 1.19 mg/dL (0.55-1.3) 11/14/20 02:40 Glucose 130 mg/dL (74-106) H 11/14/20 02:40 Magnesium 2.0 mg/dL (1.8-2.4) 11/14/20 02:40 Total Bilirubin 0.5 mg/dL (0.2-1.0) 11/13/20 14:50 AST 17 U/L (15-37) 11/13/20 14:50 ALT 18 U/L (12-78) 11/13/20 14:50 Alkaline Phosphatase 107 U/L (45-117) 11/13/20 14:50 Troponin I 0.16 ng/mL (0.0-0.045) H 11/14/20 10:25 Triglycerides 150 mg/dL (<150) 11/14/20 02:40 Cholesterol 117 mg/dL (<200) 11/14/20 02:40 HDL Cholesterol 34 mg/dL (40-60) L 11/14/20 02:40 Cholesterol/HDL Ratio 3.44 11/14/20 02:40 Home Medications: Ropinirole HCl 12 mg PO BEDTIME 01/06/16 Multivitamin [Multiple Vitamins] 1 tab PO DAILY 07/18/20 Rivaroxaban [Xarelto*] 15 mg PO BEDTIME 07/18/20 Atorvastatin Calcium [Lipitor*] 40 mg PO DAILY 08/10/20 Spironolactone [Aldactone*] 25 mg PO DAILY tab 08/16/20 Aspirin [Aspirin EC] 81 mg PO DAILY 11/14/20 Bumetanide 2 mg PO BID 11/14/20 Doxepin HCl 50 mg PO BEDTIME 11/14/20 Metoprolol Tartrate [Lopressor*] 25 mg PO BID 11/14/20 Amiodarone HCl [Cordarone*] 200 mg PO BID #60 tab 11/15/20 New Medications: Amiodarone HCl [Cordarone*] 200 mg PO BID #60 tab Physician Discharge Instructions: Patient presented with palpitations secondary to atrial fibrillation/flutter with RVR. Patient on chronic anticoagulation therapy. Other medical problems include chronic diastolic CHF with severe mitral stenosis, hypertension, hyperlipidemia, history of pacemaker and restless leg syndrome. The patient was hospitalized. Patient was placed on IV amiodarone drip. Cardiology was consulted. His heart rate initially improve but then returned back into an elevated heart rate. Cardiology recommended cardioversion. Cardioversion was performed successfully with return of sinus rhythm/paced rhythm. Patient was transitioned to oral amiodarone. Patient has done well. At discharge the patient will continue with amiodarone 200 mg 1 pill twice daily, Xarelto 15 mg daily, aspirin and multivitamin daily. Recommend follow-up with cardiology in 1 to 2 weeks to follow-up his hospitalization and continue his care. Patient with chronic diastolic CHF with severe mitral stenosis. Patient received IV diuretic therapy during the course of his stay. This was likely slightly compromised due to his atrial fibrillation/atrial flutter. Patient overall improved. At discharge patient will continue with the 1500 cc/day fluid restriction and low-salt diet. Recommend to monitor his weight daily. If his weight increases by more than 5 pounds he is to contact his PCP or cardiology for further recommendation. At discharge patient will continue with Bumex 2 mg 1 pill twice daily and Aldactone 25 mg daily. Recommend follow-up with his property management specialist to further monitor and adjust medication. Patient with hypertension. This has remained stable. At discharge patient may continue with metoprolol 25 mg 1 pill twice daily. May need to hold medication if blood pressure systolic less than 110 or heart rate less than 50. Recommend to maintain blood pressure less than 130/80. Further adjustment can be done by his PCP or cardiology. Patient with hyperlipidemia. At discharge patient will continue with his current medication of Lipitor 40 mg daily. Patient with restless leg syndrome. At discharge patient will continue with his medication of Requip 12 mg at bedtime. Patient also takes doxepin 50 mg at bedtime for insomnia. Diet: AHA Activity: Fall precautions Followup: Mikhail Lee MD [Primary Care Provider] - Time spent managing pt's care (in minutes): 55
[2020-11-15] MEDS ORDERED: METOPROLOL TAR 25 MG TAB ONE (06:01)
[2020-11-15 06:12] LABS: Magnesium 2.7 mg/dL (1.8-2.4); Phosphorus 2.5 mg/dL (2.5-4.9); Potassium 3.8 mmol/L (3.5-5.1)
[2020-11-15] MEDS: BUMETANIDE 1 MG/4 ML VIAL IV SCH (07:52)
[2020-11-15] MEDS: SPIRONOLACTONE 25 MG TABLET PO SCH (07:52)
[2020-11-15] MEDS: AMIODARONE HCL 200 MG TAB PO SCH (07:53)
[2020-11-15] MEDS: ASPIRIN EC 81 MG TAB PO SCH (07:53)
[2020-11-15] MEDS: VITAMIN D 1000 UNIT TAB PO SCH (07:54)
[2020-11-15] MEDS ORDERED: VITAMIN D 1000 UNIT TAB ONE (08:08)
[2020-11-15] MEDS ORDERED: POTASSIUM CL SA 10 MEQ TAB PO ONE ×2 (08:08→09:00)
[2020-11-15] MEDS ORDERED: AMIODARONE HCL 200 MG TAB ONE (08:08)
[2020-11-15] MEDS ORDERED: ASPIRIN EC 81 MG TAB PO ONE (08:08)
[2020-11-15] MEDS ORDERED: SPIRONOLACTONE 25 MG TABLET ONE (08:10)
--- NOTE | 2020-11-15 08:35 | RAD REPORT ---
EXAM DESCRIPTION: RAD - Chest Single View - 11/15/2020 5:08 am CLINICAL HISTORY: CHF COMPARISON: Portable November 13 TECHNIQUE: AP portable chest image was obtained 11/15/2020 5:08 am . FINDINGS: Cardiomegaly has not changed. Central vasculature shows continued engorgement. Interstitia l and alveolar opacities are slightly improved. Trachea is midline. Pacemaker is in place. No measura ble pleural effusion and no pneumothorax. No acute bony abnormality seen. No acute aortic findings barnes spected. IMPRESSION: Slight improvement in the CHF/ volume overload pattern since comparison.
[2020-11-15 12:06] VITALS: TEMP 97.5; O2SAT 100
[2020-11-15 14:13] VITALS: BP 157/74
--- NOTE | 2020-11-15 19:44 | CON ---
Date of Consultation: 11/14/2020 Reason For Consultation: Rapid atrial fibrillation. History Of Present Illness: A 70-year-old male known to have history of paroxysmal atrial fibrillati on, on chronic anticoagulation therapy, hypertension, CHF, dyslipidemia, presented to the emergency r o because of fast heart beat. In the ER, had wide-complex QRS with sustained heart rate at 150, wa s consulted from the emergency room and started the patient on amiodarone drip. His heart rate went down to the low 110s, however, went back up to 150 and was admitted to ICU on amiodarone drip and con tinues to have a very high rate with no active chest pain. Blood pressure is borderline systolic at 100 mmHg. Past Medical History: Hypertension, chronic atrial fibrillation, congestive heart failure, dyslipide monika, aortic valve replacement, COPD. Medications: Refer to reconciliation sheet for detailed list. Allergies: SULFA AND BACTRIM. Family History: There is history of heart disease on the father's side. No history of cancer. Social History: No smoking or drinking at the present time. No history of drug use. Review of Systems: All systems reviewed and they are negative except what is mentioned in the HPI. Physical Examination: Vital Signs: Blood pressure is 111/73, heart rate is 153, temperature is 97.4, breathing at 18 breat hs per minute. General: Pleasant elderly male, in no distress. Head and Neck: Pupils are equal, reactive to light. Intact eye movements. No JVD. No cervical lym phadenopathy. Neck: Supple. Thyroid is not enlarged. Lungs: Clear to auscultation bilaterally. No rhonchi, rales, or crackles. No accessory muscle use. Heart: Fast. I did not appreciate any extra sounds. Abdomen: Soft, nontender. Bowel sounds positive. No organomegaly. No masses or hernia. No rigidi ty or rebound. Extremities: No clubbing or cyanosis. Intact pulses. Skin: No rash. Neurologic: Alert, awake, oriented x3. No acute focal deficits appreciated. Investigations: Hemoglobin is 10.7. INR is 1.39. Creatinine 1.1. Troponin 0.18 and then 0.16. Assessment And Recommendation: 1.Wide-complex tachycardia. This is likely atrial flutter with baseline of left bundle branch block . The patient was loaded with 24 hours of amiodarone and started on beta [place] by mouth and still not getting the heart rate down. He is on Xarelto nonstop for longtime, did not miss any dose for th e past 2 months for sure and it is recent change in rhythm within the past 24 hours given the fact th at he is not responding to rate-controlling medication, including the amiodarone intravenously. Deci [place] was made for electrical cardioversion. The patient was given IM 4 mg of Versed and then 200 kendal les synchronized electrocardioversion was done by bedside successfully converting him to sinus rhythm with baseline left bundle branch block. The patient tolerated procedure very well. I will continue amiodarone 200 mg by mouth twice a day and stop the IV form and continue p.o. beta af[place] and Xarel to. 2.Anemia, being on Xarelto. I will recommend that come off Xarelto and to do left atrial appendage closure due to chronic anemia. I will discuss this further as outpatient. Thank you for the consult. /KEM Voice ID: [id number] Report ID: [id number]
== END 2020-11-15 15:15 | disposition home or self-care (01) | DRG 309 ==
LOC: ER 14:13 → ERHOLD 16:38
PROVIDERS: ADMIT Family Medicine; ATTEND Family Medicine
PROC: 5A2204Z Restoration of Cardiac Rhythm, Single (ICD-10-PCS; principal; 2020-11-14)
DX: I48.91 Unspecified atrial fibrillation (principal); I50.32 Chronic diastolic (congestive) heart failure; R00.2 Palpitations; I11.0 Hypertensive heart disease with heart failure; I05.0 Rheumatic mitral stenosis; E78.5 Hyperlipidemia, unspecified; G25.81 Restless legs syndrome; I44.7 Left bundle-branch block, unspecified; Z95.0 Presence of cardiac pacemaker; Z86.73 Personal history of transient ischemic attack (TIA), and cerebral infarction without residual deficits; Z79.01 Long term (current) use of anticoagulants; Z95.2 Presence of prosthetic heart valve; Z20.822 Contact with and (suspected) exposure to COVID-19
CPT/HCPCS: 36415; 71045; 80048; 80061; 80076; 82550; 82553; 83735; 83880; 84100; 84439; 84443; 84484; 85025; 85027; 85610; 93005; 96365; 96366; 96375; 99285; J0282; J2250; J2704; J7030; J7040; J7050; J7060; U0003